=== PATIENT | female | born 1960 | race African-American/Black ===

== ENCOUNTER 2020-07-13 16:33 | Emergency (ER) | payer SELFPAY ==
[2020-07-13 17:22] LABS: Absolute Lymphocytes (CBC) 3.9 K/uL (0.7-4.9); Basophils % 0.8 % (0-1.3); Hematocrit 38.7 % (36.0-45.0); Lymphocytes % 31.3 % (15.3-44.8); MPV 8.6 fL (7.6-11.3); RBC Red Blood Cell Count 4.11 M/uL (3.86-4.86)
[2020-07-13 17:23] LABS: Urine Bacteria 20-50 /HPF (<20); Urine Culture Reflex Order REFLEXED; Urine Mucus 2+ /HPF (NONE SEEN)
[2020-07-13 17:24] LABS: Urine Blood 2+ (NEG); Urine Glucose NEGATIVE (NEG); Urine Protein 2+ (NEG); Urine pH 8.5 (5.0-7.0)
--- NOTE | 2020-07-13 17:34 | RAD REPORT ---
EXAM DESCRIPTION: CT - Abdomen Pelvis Wo Contrast - 07/13/2020 5:26 pm CLINICAL HISTORY: Abdominal pain. feeding tube problem, seems clogged;Abd pain COMPARISON: No comparisons TECHNIQUE: CT imaging of the abdomen and pelvis was performed without contrast. Solid organ, bowel a nd vascular assessment is limited due to lack of IV and oral contrast. All CT scans are performed using dose optimization technique as appropriate and may include automated exposure control or mA/KV adjustment according to patient size. FINDINGS: Mild linear atelectasis is present in both lung bases. The liver, spleen, pancreas, adrenal glands and kidneys are within normal limits for a limited non-co ntrast examination. Gastrostomy tube does not appear to be within the stomach. Gastrostomy tube bulb appears to lie along the left rectus abdominus muscle fascia anteriorly. No bowel obstruction, free air, free fluid or abscess. Sigmoid diverticulosis coli without diverticul itis. The appendix is normal. Degenerative changes are present throughout the lumbar spine. IMPRESSION: Gastrostomy tube is malpositioned and does not appear positioned within the stomach as d etailed above. A limited non-contrast examination was performed as detailed.
[2020-07-13] MEDS ORDERED: NA CHLORIDE 0.9% 500 ML ONE (17:52)
[2020-07-13 17:54] LABS: ALT/SGPT 27 U/L (12-78); AST/SGOT 47 U/L (15-37); Albumin 2.1 g/dL (3.4-5.0); Alkaline Phosphatase 133 U/L (45-117); BUN Blood Urea Nitrogen 12 mg/dL (7-18); Bicarbonate 27 mmol/L (21-32); Bilirubin Direct < 0.1 mg/dL (0-0.2); Bilirubin Total 0.4 mg/dL (0.2-1.0); Glucose Level 119 mg/dL (74-106); Lipase 52 U/L (73-393); Potassium 4.9 mmol/L (3.5-5.1); Protein, Total 8.6 g/dL (6.4-8.2); Sodium Level 137 mmol/L (136-145)
--- NOTE | 2020-07-13 18:40 | RAD REPORT ---
EXAM DESCRIPTION: RAD - ENTEROSTOMY TUBE CHECK W/CONTR - 07/13/2020 6:25 pm CLINICAL HISTORY: confirm feeding tube placement, with contrast, s/p replacem Feeding tube placement assessment COMPARISON: Abdomen Pelvis Wo Contrast dated 07/13/2020 FINDINGS: Two plain radiographs of the abdomen are submitted. No fluoroscopy performed. Contrast inj ection through the G-tube demonstrates collection of contrast in the stomach, confirming appropriate placement.
[2020-07-13] MEDS ORDERED: CEFTRIAXONE/SWI 1gm 1 GM/10 ML SYR ONE (18:48)
--- NOTE | 2020-07-13 18:53 | ER ---
Nurse's Notes [facility] Name: Marah Patterson Age: 59 yrs Sex: Female : 1960 Arrival Date: 07/13/2020 Time: 16:34 Bed 23 Private MD: Diagnosis: Encounter for feeding tube replacement;Urinary tract infection, site not specified Presentation: 07/13 16:35 Chief complaint: EMS states: PT SENT BECAUSE HER G TUBE IS CLOGGED. PT ALSO COMPLAINS ls4 OF PAIN IN RIGHT UPPER LEG AND HIP. Coronavirus screen: Client denies travel out of the [place] in the last 14 days. At this time, the client does not indicate any symptoms associated with coronavirus-19. Ebola Screen: No symptoms or risks identified at this time. Initial Sepsis Screen: Does the patient meet any 2 criteria? HR > 90 bpm. Does the patient have a suspected source of infection? No. Patient's initial sepsis screen is negative. Risk Assessment: Do you want to hurt yourself or someone else? Patient reports no desire to harm self or others. Onset of symptoms was July 13, 2020 at 14:00. Care prior to arrival: None. Activity prior to arrival: None. 16:35 Method Of Arrival: EMS: [facility] ls4 16:35 Acuity: CHARLES 3 ls4 Triage Assessment: 16:34 General: Appears in no apparent distress. uncomfortable, obese, Behavior is ls4 cooperative. Pain: Complains of pain in right gluteus naif, right gluteal fold and abdomen. 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 - Social history:: Smoking status: unknown. - Unable to obtain history due to: aphasic. Screenin:48 Abuse screen: Denies threats or abuse. Denies injuries from another. Nutritional ls4 screening: No deficits noted. Tuberculosis screening: No symptoms or risk factors identified. Fall Risk None identified. Assessment: 16:34 General: Appears uncomfortable, obese, unkempt, Behavior is flat. ls4 16:34 Neuro: Level of Consciousness is awake, alert, obeys commands, Oriented to aphasia. ls4 Respiratory: Airway via trache Respiratory effort is even, unlabored, shallow, Respiratory pattern is regular. 17:35 Reassessment: No changes from previously documented assessment. Patient and/or family ls4 updated on plan of care and expected duration. Pain level reassessed. Patient is alert, oriented x 3, equal unlabored respirations, skin warm/dry/pink. 17:59 Reassessment: g tube removed and replaced by Dr Umaña. balloon inflated 20 cc. xray ls4 confirmation ordered. Personal care and brief changed and pt repositioned. 19:51 Reassessment: called [facility], Lyla answered phone. ls4 20:01 Reassessment: Report to Sara BANSAL at [facility] (She is employee of the [place] in [facility] that ls4 is here to care for the evacuated patients. transport requested. Vital Signs: 16:35 BP 123 / 65; Pulse 120; Resp 16; Temp 98.5; Pulse Ox 100% ; Weight 136.08 kg; Pain 8/10;ls4 18:02 BP 149 / 89; Pulse 116; Resp 20; Pulse Ox 100% on R/A; ls4 ED Course: 16:34 Patient arrived in ED. ls4 16:34 Arm band placed on. ls4 16:34 Patient has correct armband on for positive identification. Placed in gown. Bed in low ls4 position. Call light in reach. Side rails up X 1. telemetry monitor on. Pulse ox on. NIBP on. 16:34 Verbal reassurance given. ls4 16:34 No provider procedures requiring assistance completed. ls4 16:38 Jose Umaña MD is Attending Physician. rn 16:41 Triage completed. ls4 16:50 Elmira Griggs, RN is Primary Nurse. ls4 17:25 Initial lab(s) drawn, by nd, sent to lab. Urine collected: Stout catheter specimen, ls4 cloudy. Inserted saline lock: 22 gauge in right wrist, using aseptic technique. Blood collected. 17:26 Abdomen In Process Unspecified. EDMS 18:01 ENTEROSTOMY TUBE CHECK W/CONTR Sent. ls4 18:25 ENTEROSTOMY TUBE CHECK W/CONTR In Process Unspecified. EDMS Administered Medications: 17:37 Drug: NS 0.9% 500 ml Route: IV; Rate: bolus; Site: right wrist; ls4 22:42 Follow up: IV Status: Completed infusion; IV Intake: 500ml ls4 18:32 Drug: Rocephin 1 grams Route: IV; Rate: calculated rate; Site: right wrist; ls4 22:42 Follow up: Response: No adverse reaction; IV Status: Completed infusion; IV Intake: [id number] Intake: 22:42 IV: 500ml; Total: 500ml. ls4 22:42 IV: 10ml; Total: 510ml. ls4 Outcome: 18:53 Discharge ordered by rn 21:02 Patient left the ED. ls4 Signatures: Dispatcher [employer] EDMS Jose Umaña MD MD rn Stewart, Lisa, RN RN ls4 Corrections: (The following items were deleted from the chart) 22:42 18:30 IV Status: Completed infusion ls4 ls4 22:43 18:42 IV Status: Completed infusion ls4 ls4
--- NOTE | 2020-07-13 18:53 | EDPHYS ---
Physician Documentation [facility] Name: Marah Patterson Age: 59 yrs Sex: Female : 1960 Arrival Date: 07/13/2020 Time: 16:34 Bed 23 Private MD: ED Physician Jose Umaña HPI: 07/13 17:22 This 59 yrs old Black Female presents to ER via EMS with complaints of Problem With rn Feeding Tube. 17:22 Sent for evaluation of clogged feeding tube. No fever per report. Pt aphasic from rn previous CVA, but points to right hip when asked about pain, locates pain at site of pressure ulcer. . 17:23 Onset: The symptoms/episode began/occurred at an unknown time. Severity of symptoms: At rn their worst the symptoms were. It is unknown whether or not the patient has had similar symptoms in the past. 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 - Social history:: Smoking status: unknown. - Unable to obtain history due to: aphasic. ROS: 17:23 Unable to obtain ROS due to aphasic. rn Exam: 17:23 Constitutional: This is a well developed, well nourished patient who is awake, alert, rn and in no acute distress. Head/Face: Normocephalic, atraumatic. ENT: dry MM Cardiovascular: tachycardic, regular Respiratory: No increased work of breathing, no retractions or nasal flaring. Abdomen/GI: soft, + PEG tube in place, no focal tenderness but patient grimaces with palpation. Skin: Warm, dry, shallow pressure ulcer right lateral/posterior hip, no sign of infection. MS/ Extremity: Pulses equal, no cyanosis. Neuro: Awake, aphasic, shakes head yes and no to questions. Vital Signs: 16:35 BP 123 / 65; Pulse 120; Resp 16; Temp 98.5; Pulse Ox 100% ; Weight 136.08 kg; Pain 8/10;ls4 18:02 BP 149 / 89; Pulse 116; Resp 20; Pulse Ox 100% on R/A; ls4 Procedures: 17:54 G-tube placement: a 16 Uzbek catheter was placed, by the ED physician, Jose Umaña MD. rn MDM: 16:38 Patient medically screened. rn 17:55 ED course: Existing feeding tube was not in stomach, inflated in abdominal wall/rectus. rn New one replaced with gastric contents confirmed, tolerated well, same size, inflated with 20cc and good slack. Ordered kub for placement. . 18:17 Differential Diagnosis feeding tube malpositioned, UTI, chronic pain, pressure ulcer. rn Data reviewed: vital signs, nurses notes, lab test result(s), radiologic studies, CT scan, plain films, and as a result, I will discharge patient. Counseling: I had a detailed discussion with the patient and/or guardian regarding: the historical points, exam findings, and any diagnostic results supporting the discharge/admit diagnosis, lab results, radiology results, the need for outpatient follow up, to return to the emergency department if symptoms worsen or persist or if there are any questions or concerns that arise at home. 18:50 ED course: KUB showed appropriate placement of new G tube.. rn 07/13 16:43 Order name: Basic Metabolic Panel; Complete Time: 17:56 rn 07/13 16:43 Order name: CBC with Diff; Complete Time: 17:39 rn 07/13 16:43 Order name: Hepatic Function; Complete Time: 17:56 rn 07/13 16:43 Order name: Lipase; Complete Time: 17:56 rn 07/13 16:43 Order name: Urine Microscopic Only; Complete Time: 17:39 rn 07/13 17:05 Order name: Urine Dipstick--Ancillary (enter results); Complete Time: 17:39 em1 07/13 16:43 Order name: IV Saline Lock; Complete Time: 17:28 rn 07/13 17:25 Order name: Urine Culture [facility] 07/13 17:25 Order name: Abdomen ; Complete Time: 17:39 [facility] 07/13 17:57 Order name: ENTEROSTOMY TUBE CHECK W/CONTR; Complete Time: 18:49 [facility] 07/13 16:43 Order name: Labs collected and sent; Complete Time: 17:28 rn 07/13 16:43 Order name: Urine Dipstick-Ancillary (obtain specimen); Complete Time: 17:03 rn Administered Medications: 17:37 Drug: NS 0.9% 500 ml Route: IV; Rate: bolus; Site: right wrist; ls4 22:42 Follow up: IV Status: Completed infusion; IV Intake: 500ml ls4 18:32 Drug: Rocephin 1 grams Route: IV; Rate: calculated rate; Site: right wrist; ls4 22:42 Follow up: Response: No adverse reaction; IV Status: Completed infusion; IV Intake: [id number] Disposition: 07/13/20 18:53 Discharged to Home. Impression: Encounter for feeding tube replacement, Urinary tract infection, site not specified. - Condition is Stable. - Discharge Instructions: Urinary Tract Infection, Adult, PEG Tube Home Guide. - Prescriptions for cefpodoxime 50 mg/5 mL Oral Suspension for Reconstitution - take 20 milliliters by G-TUBE route every 12 hours for 10 days; 400 milliliter. - Medication Reconciliation Form, Thank You Letter, Antibiotic Education, Prescription Opioid Use form. - Follow up: Private Physician; When: As needed; Reason: Recheck today's complaints, Re-evaluation by your physician. - Problem is new. - Symptoms have improved. Signatures: Dispatcher [employer] [facility] Jose Umaña MD MD rn Stewart, Lisa, RN RN ls4 Corrections: (The following items were deleted from the chart) 17:25 16:44 Abdomen Pelvis W Con+CT.RAD.BRZ ordered. [facility] ED[facility] 17:57 17:55 Abdomen 1 View (KUB)+RAD.RAD.BRZ ordered. [facility] ED[facility] 21:02 18:53 07/13/2020 18:53 Discharged to Home. Impression: Encounter for feeding tube ls4 replacement; Urinary tract infection, site not specified. Condition is Stable. Discharge Instructions: Urinary Tract Infection, Adult, PEG Tube Home Guide. Prescriptions for cefpodoxime 50 mg/5 mL Oral Suspension for Reconstitution - take 20 milliliters by G-TUBE route every 12 hours for 10 days; 400 milliliter. and Forms are Medication Reconciliation Form, Thank You Letter, Antibiotic Education, Prescription Opioid Use. Follow up: Private Physician; When: As needed; Reason: Recheck today's complaints, Re-evaluation by your physician. Problem is new. Symptoms have improved. rn
== END 2020-07-13 21:02 | disposition home or self-care (01) ==
LOC: ER 16:33
DX: Z43.1 Encounter for attention to gastrostomy (principal); N39.0 Urinary tract infection, site not specified; Z88.1 Allergy status to other antibiotic agents; Z88.8 Allergy status to other drugs, medicaments and biological substances
CPT/HCPCS: 36415; 49465; 74176; 80048; 80076; 81003; 81015; 82565; 83690; 85025; 87077; 87086; 87088; 87186; 96361; 96365; 96366; 99284; J0696; J7040

== ENCOUNTER 2020-08-03 19:04 | Emergency (ER) | payer SELFPAY ==
--- OUTSIDE RECORDS SUMMARY | 2020-08-03 19:12 | XMS REPORT | Continuity of Care Document ---
:1960 Author Organization [facility] t Address [address] [place] [address] Care Team Providers Name Role Phone DAILY GARCIA Primary Care Physician Unavailable America Smith Attending Clinician PHU BARRERA ED Attending Clinician Unavailable HOLLY, DEBBY Admitting Clinician Unavailable Payers Payer Name Policy Type Policy Number Effective Date Expiration Date S ource Problems This patient has no known problems. Allergies, Adverse Reactions, Alerts Allergy Allergy Status Severity Reaction(s) Onset Inactive Treating Comm ents Source Name Type Date Date Clinician iodine DA Active [place] 2020-0 [facility] 8-17 [place] 00:[facility] [place] levoflox DA Active [place] 2019-0 [facility] 8-17 [place] [facility] [place] No Known DA Active U 0 [facility] Allergie 7-19 [place] [facility] 00:00: [facility] 00 [facility] [place] Medications This patient has no known medications. Procedures This patient has no known procedures. Encounters Start End Encounter Admission Attending Care Care Encounter Source Date/Time Date/Time Type Type Clinicians Facility Department ID 2020-04-13 2020-04-13 Case America Berrios [facility] [id number] 00:00:00 00:00:00 Management [facility] [id number] CLINICS [id number] 2017-09-10 2017-09-10 Outpatient 3 ELYSIA BARRERA [id number] [facility] 10:49:00 10:49:00 PHU Grahammo nt) 2017-05-28 2017-05-28 Emergency [facility] [id number] Medical 04:36:00 04:36:00 [facility] 2017-05-21 2017-05-21 Inpatient E [facility] [id number] Medical 02:34:00 02:34:00 [facility] Results Test Description Test Time Test Comments Results Result Comments Source GLUBED 2020-07-10 11:55:00 Test Item Value Reference Range Interpretation Comme nts GLUBED (test code = GLUBED) 126 mg/dL 65-99 H BASIC METABOLIC [id number] 10:08:00 Test Item Value Reference Range Interpretation Comments SODIUM (test code 140 mmol/L 135-145 N = NA) POTASSIUM (test 4.5 mmol/L 3.5-5.1 N code = K) CHLORIDE (test 104 mmol/L 98-107 N code = CL) CARBON DIOXIDE 30 mmol/L 21-32 N (test code = CO2) ANION GAP (test 10.5 2.0-16.0 N code = GAP) GLUCOSE (test code 128 mg/dL 65-99 H = GLU) BLOOD UREA 6 mg/dL 4-23 N NITROGEN (test code = BUN) GLOMERULAR >=60 max >60 The estimated FILTRATION RATE estimate ml/min glomerula r (test code = GFR) filtration rate is computed usingpatient ra ce, age (>18), sex, and serum creatinin e. If anyof the neede d data elements a re missing the Laboratory [place] ot compute an estimation of t he glomerular filtration rate . CREATININE (test 0.5 mg/dL 0.6-1.5 L code = CREAT) BUN/CREATININE 12.0 12.0-20.0 N RATIO (test code = BUN/CREA) CALCIUM (test code 9.4 mg/dL 8.5-10.1 N = CA) [id number] 10:08:00 Test Item Value Reference Range Interpretation Comments MAGNESIUM (test code = MAG) 1.8 mg/dL 1.8-2.4 N CBC W/AUTO [id number] 09:46:00 Test Item Value Reference Range Interpretation Comments WHITE BLOOD CELL (test code = 10.6 10 3/uL 4.5-11.0 N WBC) RED BLOOD CELL (test code = 3.71 10 6/uL 3.50-5.50 N RBC) HEMOGLOBIN (test code = HGB) 11.3 g/dL 12.0-16.0 L HEMATOCRIT (test code = HCT) 36.4 % 37.0-55.0 L MEAN CELL VOLUME (test code = 98 fL 81-102 N MCV) MEAN CELL HGB (test code = 30.5 pg 26.0-34.0 N MCH) MEAN CELL HGB CONCENTRATION 31.0 g/dL 31.0-37.0 N (test code = MCHC) RED CELL DISTRIBUTION WIDTH 13.6 % 11.5-14.5 N (test code = RDW) PLATELET COUNT (test code = 620 10 3/uL 150-400 H PLT) MEAN PLATELET VOLUME (test 10.3 fL 9.0-12.6 N code = MPV) NEUTROPHIL % (test code = NT%) 39.5 % 33.0-76.0 N IMMATURE GRANULOCYTE % (test 0.7 % 0.0-1.0 N code = IG%) LYMPHOCYTE % (test code = LY%) 42.9 % 14.0-56.4 N MONOCYTE % (test code = MO%) 7.3 % 0.0-12.9 N EOSINOPHIL % (test code = EO%) 8.8 % 0.0-7.0 H BASOPHIL % (test code = BA%) 0.8 % 0-2.0 N NUCLEATED RBC % (test code = 0.0 % 0-0.2 N NRBC%) NEUTROPHIL # (test code = NT#) 4.19 10 3/uL 1.5-7.0 N IMMATURE GRANULOCYTE # (test 0.070 x10 3/uL 0.000-0.100 N code = IG#) LYMPHOCYTE # (test code = LY#) 4.54 10 3/uL 1.50-4.00 H MONOCYTE # (test code = MO#) 0.77 10 3/uL 0.20-0.80 N EOSINOPHIL # (test code = EO#) 0.93 10 3/uL 0.0-0.5 H BASOPHIL # (test code = BA#) 0.09 10 3/uL 0.0-0.1 N [id number] 06:11:00 Test Item Value Reference Range Interpretation Comments GLUBED (test code = GLUBED) 127 mg/dL 65-99 H [id number] 01:06:00 Test Item Value Reference Range Interpretation Comments GLUBED (test code = GLUBED) 131 mg/dL 65-99 H [id number] 16:55:00 Test Item Value Reference Range Interpretation Comments GLUBED (test code = GLUBED) 118 mg/dL 65-99 H [id number] 11:34:00 Test Item Value Reference Range Interpretation Comments GLUBED (test code = GLUBED) 123 mg/dL 65-99 H [id number] 06:21:00 Test Item Value Reference Range Interpretation Comments GLUBED (test code = GLUBED) 115 mg/dL 65-99 H BASIC METABOLIC [id number] 04:53:00 Test Item Value Reference Range Interpretation Comments SODIUM (test code 139 mmol/L 135-145 N = NA) POTASSIUM (test 4.4 mmol/L 3.5-5.1 N code = K) CHLORIDE (test 105 mmol/L 98-107 N code = CL) CARBON DIOXIDE 28 mmol/L 21-32 N (test code = CO2) ANION GAP (test 10.4 2.0-16.0 N code = GAP) GLUCOSE (test code 121 mg/dL 65-99 H = GLU) BLOOD UREA 7 mg/dL 4-23 N NITROGEN (test code = BUN) GLOMERULAR >=60 max >60 The estimated FILTRATION RATE estimate ml/min glomerula r (test code = GFR) filtration rate is computed usingpatient ra ce, age (>18), sex, and serum creatinin e. If anyof the neede d data elements a re missing the Laboratory [place] ot compute an estimation of t he glomerular filtration rate . CREATININE (test 0.5 mg/dL 0.6-1.5 L code = CREAT) BUN/CREATININE 14.0 12.0-20.0 N RATIO (test code = BUN/CREA) CALCIUM (test code 9.5 mg/dL 8.5-10.1 N = CA) [id number] 04:53:00 Test Item Value Reference Range Interpretation Comments MAGNESIUM (test code = MAG) 1.7 mg/dL 1.8-2.4 L [id number] 04:53:00 Test Item Value Reference Range Interpretation Comments TROPONIN-I (test code = TROPI) < 0.02 ng/mL 0.00-0.07 N [id number] 23:24:00 Test Item Value Reference Range Interpretation Comments GLUBED (test code = GLUBED) 105 mg/dL 65-99 H THYROID STIMULATING [id number] 20:50:00 Test Item Value Reference Range Interpretation Comments THYROID STIMULATING HORMONE (test 0.66 mIU/mL 0.36-3.74 N code = TSH) Spec Comments: add to blood drawnHARDSTICK MISSED [id number] 20:50:00 Test Item Value Reference Range Interpretation Comments TROPONIN-I (test code = TROPI) < 0.02 ng/mL 0.00-0.07 N Spec Comments: add to blood drawnHARDSTICK MISSED [id number] 20:34:00 Test Item Value Reference Range Interpretation Comments D-DIMER (test 616 ng/mLFEU 0-500 H Note: New Ref erence code = DDIMER) RangeD-Dimer results are reported in ng/ mL. These unitscorrespond to ng/mL Fibrinogen Equi valent Units (FEU). TheD-dim er cut-off value is the sa me as the normal referenc erange.A negative D-dime r result when combined w ith a clinicalassessm ent of low pretest probabi lity has been shown to h avea high negative predic tive value for deep vein thrombosis(DVT) and pulmonary embol ism (PE). Elevated levels ofD-Dimer are found in cl inical conditions such as DVT, PE,and dissemin ated intravascular c oagulation (DIC). Spec Comments: add to blood drawnHARDSTICK MISSED [id number] 17:24:00 Test Item Value Reference Range Interpretation Comments GLUBED (test code = GLUBED) 105 mg/dL 65-99 H [id number] 12:01:00 Test Item Value Reference Range Interpretation Comments GLUBED (test code = GLUBED) 109 mg/dL 65-99 H [id number] 06:09:00 Test Item Value Reference Range Interpretation Comments GLUBED (test code = GLUBED) 100 mg/dL 65-99 H [id number] 02:04:00 Test Item Value Reference Range Interpretation Comments GLUBED (test code = GLUBED) 100 mg/dL 65-99 H [id number] 21:52:00 Test Item Value Reference Range Interpretation Comments GLUBED (test code = GLUBED) 98 mg/dL 65-99 N [id number] 16:16:00 Test Item Value Reference Range Interpretation Comments GLUBED (test code = GLUBED) 88 mg/dL 65-99 N [id number] 11:33:00 Test Item Value Reference Range Interpretation Comments GLUBED (test code = GLUBED) 109 mg/dL 65-99 H [id number] 07:15:00 Test Item Value Reference Range Interpretation Comments GLUBED (test code = GLUBED) 72 mg/dL 65-99 N [id number] 06:09:00 Test Item Value Reference Range Interpretation Comments GLUBED (test code = GLUBED) 54 mg/dL 65-99 L [id number] 03:15:00 Test Item Value Reference Range Interpretation Comments GLUBED (test code = GLUBED) 94 mg/dL 65-99 N [id number] 02:50:00 Test Item Value Reference Range Interpretation Comments GLUBED (test code = 46 mg/dL 65-99 LL CRITICAL RESULT - GLUBED) TESTING PERFORM ED BY PRIMARY CAREGIV ER [id number] 00:44:00 Test Item Value Reference Range Interpretation Comments GLUBED (test code = GLUBED) 75 mg/dL 65-99 N [id number] 00:04:00 Test Item Value Reference Range Interpretation Comments GLUBED (test code = GLUBED) 63 mg/dL 65-99 L [id number] 17:39:00 Test Item Value Reference Range Interpretation Comments GLUBED (test code = GLUBED) 99 mg/dL 65-99 N [id number] 12:11:00 Test Item Value Reference Range Interpretation Comments GLUBED (test code = GLUBED) 112 mg/dL 65-99 H [id number] 06:10:00 Test Item Value Reference Range Interpretation Comments GLUBED (test code = GLUBED) 99 mg/dL 65-99 N [id number] 06:01:00 Test Item Value Reference Range Interpretation Comments GLUBED (test code = GLUBED) 109 mg/dL 65-99 H [id number] 23:55:00 Test Item Value Reference Range Interpretation Comments GLUBED (test code = GLUBED) 89 mg/dL 65-99 N [id number] 16:54:00 Test Item Value Reference Range Interpretation Comments GLUBED (test code = GLUBED) 114 mg/dL 65-99 H [id number] 12:41:00 Test Item Value Reference Range Interpretation Comments GLUBED (test code = GLUBED) 114 mg/dL 65-99 H [id number] 12:14:00 Test Item Value Reference Range Interpretation Comments MAGNESIUM (test code = MAG) 1.5 mg/dL 1.8-2.4 L CBC W/MANUAL [id number] 06:25:00 Test Item Value Reference Range Interpretation Comments WHITE BLOOD CELL (test code 8.7 10 3/uL 4.5-11.0 N = WBC) RED BLOOD CELL (test code = 3.33 10 6/uL 3.50-5.50 L RBC) HEMOGLOBIN (test code = HGB) 10.1 g/dL 12.0-16.0 L HEMATOCRIT (test code = HCT) 33.4 % 37.0-55.0 L MEAN CELL VOLUME (test code 100 fL 81-102 N = MCV) MEAN CELL HGB (test code = 30.3 pg 26.0-34.0 N MCH) MEAN CELL HGB CONCENTRATION 30.2 g/dL 31.0-37.0 L (test code = MCHC) RED CELL DISTRIBUTION WIDTH 13.8 % 11.5-14.5 N (test code = RDW) PLATELET COUNT (test code = 481 10 3/uL 150-400 H PLT) MEAN PLATELET VOLUME (test 10.1 fL 9.0-12.6 N code = MPV) NEUTROPHIL % (test code = 36.3 % 33.0-76.0 N NT%) IMMATURE GRANULOCYTE % (test 0.2 % 0.0-1.0 N code = IG%) LYMPHOCYTE % (test code = 40.3 % 14.0-56.4 N LY%) MONOCYTE % (test code = MO%) 4.9 % 0.0-12.9 N EOSINOPHIL % (test code = 17.8 % 0.0-7.0 H EO%) BASOPHIL % (test code = BA%) 0.5 % 0-2.0 N NUCLEATED RBC % (test code = 0.0 % 0-0.2 N NRBC%) NEUTROPHIL # (test code = 3.15 10 3/uL 1.5-7.0 N NT#) IMMATURE GRANULOCYTE # (test 0.020 x10 3/uL 0.000-0.100 N code = IG#) LYMPHOCYTE # (test code = 3.51 10 3/uL 1.50-4.00 N LY#) MONOCYTE # (test code = MO#) 0.43 10 3/uL 0.20-0.80 N EOSINOPHIL # (test code = 1.55 10 3/uL 0.0-0.5 H EO#) BASOPHIL # (test code = BA#) 0.04 10 3/uL 0.0-0.1 N TOTAL CELLS COUNTED (test 100 #CELLS code = TCC) SEGMENTED NEUTROPHILS (test 38 % 33-76 N code = SEG) BAND NEUTROPHIL (test code = 3 % 0-1 H BAND) LYMPHOCYTE (test code = 29 % 14-54 N LYMPH) MONOCYTE (test code = MON) 8 % 0-12 N EOSINOPHIL (test code = EOS) 20 % 0-7 H BASOPHIL (test code = BASO) 2 % 0.0-2.0 N HYPOCHROMIA (test code = 1+ NONE SEEN A HYPO) SMUDGE CELLS (test code = OCCASIONAL NONE SEEN SMUDG) RBC MORPHOLOGY COMMENT (test Abnormal NORMAL code = MOC) PLATELET ESTIMATE (test code ADEQUATE ADEQUATE = PLTEST) PLATELET MORPHOLOGY (test NORMAL PLT MORPH NORMAL code = PLTMORPH) [id number] 06:20:00 Test Item Value Reference Range Interpretation Comments GLUBED (test code = GLUBED) 103 mg/dL 65-99 H COMPREHENSIVE METABOLIC [id number] 04:57:00 Test Item Value Reference Range Interpretation Comments SODIUM (test code 141 mmol/L 135-145 N = NA) POTASSIUM (test 3.6 mmol/L 3.5-5.1 N code = K) CHLORIDE (test 108 mmol/L 98-107 H code = CL) CARBON DIOXIDE 30 mmol/L 21-32 N (test code = CO2) ANION GAP (test 6.6 2.0-16.0 N code = GAP) GLUCOSE (test 107 mg/dL 65-99 H code = GLU) BLOOD UREA 20 mg/dL 4-23 N NITROGEN (test code = BUN) GLOMERULAR >=60 max >60 The estimated g lomerular FILTRATION RATE estimate filtration r ate is (test code = GFR) ml/min computed u singpatient race, age (>18) , sex, and serum creat inine. If anyof the neede d data elements are mi ssing the Laboratory [place] ot compute an arslan mation of the glomerular filtration rate . CREATININE (test 0.6 mg/dL 0.6-1.5 N code = CREAT) BUN/CREATININE 33.3 12.0-20.0 H RATIO (test code = BUN/CREA) TOTAL PROTEIN 5.9 g/dL 6.4-8.2 L (test code = PROT) ALBUMIN (test 1.8 g/dL 3.4-5.0 L code = ALB) CALCIUM (test 8.3 mg/dL 8.5-10.1 L code = CA) BILIRUBIN TOTAL 0.3 mg/dL 0.2-1.2 N Use of this assay is not (test code = recommended for patients BILT) undergoingtreat ment with Eltrombopag due to the potential for falselyelevated results. SGOT/AST (test 70 U/L 15-37 H code = AST) SGPT/ALT (test 29 U/L 6-50 N code = ALT) ALKALINE 110 U/L 45-117 N PHOSPHATASE (test code = ALKP) CBC W/MANUAL [id number] 04:44:00 Test Item Value Reference Range Interpretation Comments WHITE BLOOD CELL (test code = 8.7 10 3/uL 4.5-11.0 N WBC) RED BLOOD CELL (test code = 3.33 10 6/uL 3.50-5.50 L RBC) HEMOGLOBIN (test code = HGB) 10.1 g/dL 12.0-16.0 L HEMATOCRIT (test code = HCT) 33.4 % 37.0-55.0 L MEAN CELL VOLUME (test code = 100 fL 81-102 N MCV) MEAN CELL HGB (test code = 30.3 pg 26.0-34.0 N MCH) MEAN CELL HGB CONCENTRATION 30.2 g/dL 31.0-37.0 L (test code = MCHC) RED CELL DISTRIBUTION WIDTH 13.8 % 11.5-14.5 N (test code = RDW) PLATELET COUNT (test code = 481 10 3/uL 150-400 H PLT) MEAN PLATELET VOLUME (test 10.1 fL 9.0-12.6 N code = MPV) NEUTROPHIL % (test code = NT%) 36.3 % 33.0-76.0 N IMMATURE GRANULOCYTE % (test 0.2 % 0.0-1.0 N code = IG%) LYMPHOCYTE % (test code = LY%) 40.3 % 14.0-56.4 N MONOCYTE % (test code = MO%) 4.9 % 0.0-12.9 N EOSINOPHIL % (test code = EO%) 17.8 % 0.0-7.0 H BASOPHIL % (test code = BA%) 0.5 % 0-2.0 N NUCLEATED RBC % (test code = 0.0 % 0-0.2 N NRBC%) NEUTROPHIL # (test code = NT#) 3.15 10 3/uL 1.5-7.0 N IMMATURE GRANULOCYTE # (test 0.020 x10 3/uL 0.000-0.100 N code = IG#) LYMPHOCYTE # (test code = LY#) 3.51 10 3/uL 1.50-4.00 N MONOCYTE # (test code = MO#) 0.43 10 3/uL 0.20-0.80 N EOSINOPHIL # (test code = EO#) 1.55 10 3/uL 0.0-0.5 H BASOPHIL # (test code = BA#) 0.04 10 3/uL 0.0-0.1 N TOTAL CELLS COUNTED (test code #CELLS = TCC) SEGMENTED NEUTROPHILS (test % 33-76 code = SEG) LYMPHOCYTE (test code = LYMPH) % 14-54 PLATELET ESTIMATE (test code = ADEQUATE PLTEST) PLATELET MORPHOLOGY (test code NORMAL = PLTMORPH) [id number] 21:29:00 Test Item Value Reference Range Interpretation Comments GLUBED (test code = GLUBED) 88 mg/dL 65-99 N [id number] 18:37:00 Test Item Value Reference Range Interpretation Comments GLUBED (test code = GLUBED) 98 mg/dL 65-99 N SED [id number] 13:32:00 Test Item Value Reference Range Interpretation Comments SED RATE (test code = SEDW) 61 mm/hr 0-20 H C REACTIVE [id number] 13:29:00 Test Item Value Reference Range Interpretation Comments C REACTIVE PROTEIN (test code = 10.30 mg/dL 0.00-0.33 H CRP) [id number] 12:16:00 Test Item Value Reference Range Interpretation Comments GLUBED (test code = GLUBED) 91 mg/dL 65-99 N [id number] 06:43:00 Test Item Value Reference Range Interpretation Comments GLUBED (test code = GLUBED) 114 mg/dL 65-99 H HGBA1C - GLYCOSYLATED [id number] 05:36:00 Test Item Value Reference Range Interpretation Comments GLYCOSYLATED HEMOGLOBIN (HA1C) (test 5.8 4.5-5.9 N code = GLYHGB) UA RFLX MICR CULT IF [id number] 04:26:00 Test Item Value Reference Range Interpretation Comments UA COLOR (test code = COLU) YELLOW YELLOW UA APPEARANCE (test code = CLEAR CLEAR APPU) UA GLUCOSE DIPSTICK (test code NEGATIVE NEGATIVE = DGLUU) UA BILIRUBIN DIPSTICK (test NEGATIVE NEGATIVE code = BILU) UA KETONE DIPSTICK (test code TRACE NEGATIVE A = KETU) UA SPECIFIC GRAVITY (test code 1.025 1.005-1.025 N = SGU) UA BLOOD DIPSTICK (test code = NEGATIVE NEGATIVE MICHAEL) UA PH DIPSTICK (test code = 7.0 5.0-8.0 RYAN) UA PROTEIN DIPSTICK (test code 1+ NEGATIVE A = PROU) UA UROBILINOGEN DIPSTICK (test NEGATIVE EU/dL 0.1-0.2 code = URO) UA NITRITE DIPSTICK (test code NEGATIVE NEGATIVE = MOHAN) UA LEUKOCYTE ESTERASE DIPSTICK TRACE NEGATIVE A (test code = LEUU) UA MICROSCOPIC NEEDED? (test YES NO A code = UAMICRO) UA WBC (test code = WBCU) 6-10 /hpf 0-3 A UA RBC (test code = RBCU) 11-20 /hpf 0-3 A UA BACTERIA (test code = BACU) RARE /HPF NEGATIVE UA SQUAMOUS CELLS (test code = Moderate /HPF FEW SQU) Indication for culture: Dysuria/[id number] 02:30:00 Test Item Value Reference Range Interpretation Comments GLUBED (test code = GLUBED) 149 mg/dL 65-99 H [id number] 22:19:00 Test Item Value Reference Range Interpretation Comments GLUBED (test code = GLUBED) 165 mg/dL 65-99 H LACTIC [id number] 20:15:00 Test Item Value Reference Range Interpretation Comments LACTIC ACID (test code = LACT) 1.4 mmol/L 0.4-2.0 N LIPID PROFILE (CORONARY RISK)2020-07-03 17:55:00 Test Item Value Reference Range Interpretation Comments TRIGLYCERIDES (test code = TRIG) 82 mg/dL 0-149 N CHOLESTEROL (test code = CHOL) 84 mg/dL 0-200 N CHOLESTEROL/HDL RATIO (test code = 2 1-6 N CHOLHDL) HDL CHOLESTEROL (test code = HDL) 37 mg/dL 40-60 L LIPOPROTEIN LDL (test code = LDLC) 40 mg/dL 0-100 N Coronavirus 2019 nCoV [id number] 17:52:00 Test Item Value Reference Range Interpretation Comments Coronavirus 2019 Negative Negative This test h ad not been nCoV Bedside (test FDA clear ed or approved; code = LLPQJ59HFESA) This te sthas been authorized by F DA under an EUA for use byauthorized la boratories only for the de tection of nucleicacid fro m SARS-CoV-2, not for any other viruses orpathogens; an d this test is only au thorized for the duratio nof the declaration mike t circumstances e xist justifying theauthorizatio n of emergency use o f in-vitro diagnostic test sfor detection and/o r diagnosis of CO VID-19 under Ihnxneq70 4(b)(1) of the Act, 21 U.S .C. 360bbb-3(b)(1), unless theauthorizatio n is terminated or r evoked sooner. Is patient requiring admission or transfer? YIndication for rapid COVID-9 testing: Mod Clinical Suspicion- XR CHEST 1 [id number] 17:48:00Patient Name: JANIS CRAWFORD Unit No: [id number] EXAMS: CPT CODE: [id number] XR CHEST 1 V [id number] EXAM: Chest one view. Location: A1 HISTORY: COUGH, , COMPARISON: None available. FINDINGS: Endotracheal tube isseen below the thoracic inlet. Lung volumes are low. No focal airspace opacities are seen. There are no pleural effusions or pneumothorax. Aorta, pulmonary vasculature mediastinal contours are within normal limits. Cardiac silhouette is moderately enlarged.. Spondylosis is noted throughout the thoracic spine. IMPRESSION: 1. Endotracheal tube is seen below the thoracic inlet..2. Low lung volumes. 3. Cardiomegaly. Electronically Signed by Elie Garibay MD on07/03/2020 at 1748 Reported and signed by: Elie Garibay MD CC:Self Referred; Angelica Acharya NP; Chucky Molina MD Technologist: Malika Montalvo Time: DAP (Gy m2): Air Kerma (mGy): Trscr Dt/Tm: 07/03/2020 (1747) by:[email or web address] Electronic Signature Date/Time: 07/03/2020 (1747)Orig Print D/T: S: 07/03/2020 (175) Name: JANIS CRAWFORD [facility] [place] Phys: Angelica Peña [place] [address] : 1960 Age: 59 Sex: [place] [id number] Loc: [place].ERTE[facility] Exam Date: 07/03/2020 Status: ADM IN PH: FAX: PAGE 1 Signed ReportCBC W/MANUAL [id number] 16:35:00 Test Item Value Reference Range Interpretation Comments WHITE BLOOD CELL (test code 14.3 10 3/uL 4.5-11.0 H = WBC) RED BLOOD CELL (test code = 3.93 10 6/uL 3.50-5.50 N RBC) HEMOGLOBIN (test code = HGB) 12.3 g/dL 12.0-16.0 N HEMATOCRIT (test code = HCT) 39.3 % 37.0-55.0 N MEAN CELL VOLUME (test code 100 fL 81-102 N = MCV) MEAN CELL HGB (test code = 31.3 pg 26.0-34.0 N MCH) MEAN CELL HGB CONCENTRATION 31.3 g/dL 31.0-37.0 N (test code = MCHC) RED CELL DISTRIBUTION WIDTH 14.1 % 11.5-14.5 N (test code = RDW) PLATELET COUNT (test code = 513 10 3/uL 150-400 H PLT) MEAN PLATELET VOLUME (test 10.5 fL 9.0-12.6 N code = MPV) NEUTROPHIL # (test code = 8.05 10 3/uL 1.5-7.0 H NT#) IMMATURE GRANULOCYTE # (test 0.030 x10 3/uL 0.000-0.100 N code = IG#) LYMPHOCYTE # (test code = 3.22 10 3/uL 1.50-4.00 N LY#) MONOCYTE # (test code = MO#) 0.66 10 3/uL 0.20-0.80 N EOSINOPHIL # (test code = 2.33 10 3/uL 0.0-0.5 H EO#) BASOPHIL # (test code = BA#) 0.03 10 3/uL 0.0-0.1 N TOTAL CELLS COUNTED (test 100 #CELLS code = TCC) SEGMENTED NEUTROPHILS (test 53 % 33-76 N code = SEG) LYMPHOCYTE (test code = 23 % 14-54 N LYMPH) MONOCYTE (test code = MON) 4 % 0-12 N EOSINOPHIL (test code = EOS) 20 % 0-7 H HYPOCHROMIA (test code = 1+ NONE SEEN A HYPO) RBC MORPHOLOGY COMMENT (test Abnormal NORMAL code = MOC) PLATELET ESTIMATE (test code INCREASED ADEQUATE = PLTEST) PLATELET MORPHOLOGY (test NORMAL PLT MORPH NORMAL code = PLTMORPH) CBC W/MANUAL [id number] 16:34:00 Test Item Value Reference Range Interpretation Comments WHITE BLOOD CELL (test code = 14.3 10 3/uL 4.5-11.0 H WBC) RED BLOOD CELL (test code = 3.93 10 6/uL 3.50-5.50 N RBC) HEMOGLOBIN (test code = HGB) 12.3 g/dL 12.0-16.0 N HEMATOCRIT (test code = HCT) 39.3 % 37.0-55.0 N MEAN CELL VOLUME (test code = 100 fL 81-102 N MCV) MEAN CELL HGB (test code = 31.3 pg 26.0-34.0 N MCH) MEAN CELL HGB CONCENTRATION 31.3 g/dL 31.0-37.0 N (test code = MCHC) RED CELL DISTRIBUTION WIDTH 14.1 % 11.5-14.5 N (test code = RDW) PLATELET COUNT (test code = 513 10 3/uL 150-400 H PLT) MEAN PLATELET VOLUME (test 10.5 fL 9.0-12.6 N code = MPV) NEUTROPHIL # (test code = NT#) 8.05 10 3/uL 1.5-7.0 H IMMATURE GRANULOCYTE # (test 0.030 x10 3/uL 0.000-0.100 N code = IG#) LYMPHOCYTE # (test code = LY#) 3.22 10 3/uL 1.50-4.00 N MONOCYTE # (test code = MO#) 0.66 10 3/uL 0.20-0.80 N EOSINOPHIL # (test code = EO#) 2.33 10 3/uL 0.0-0.5 H BASOPHIL # (test code = BA#) 0.03 10 3/uL 0.0-0.1 N TOTAL CELLS COUNTED (test code #CELLS = TCC) SEGMENTED NEUTROPHILS (test % 33-76 code = SEG) LYMPHOCYTE (test code = LYMPH) % 14-54 PLATELET ESTIMATE (test code = ADEQUATE PLTEST) PLATELET MORPHOLOGY (test code NORMAL = PLTMORPH) CBC W/MANUAL [id number] 16:34:00 Test Item Value Reference Range Interpretation Comments WHITE BLOOD CELL (test code = 14.3 10 3/uL 4.5-11.0 H WBC) RED BLOOD CELL (test code = 3.93 10 6/uL 3.50-5.50 N RBC) HEMOGLOBIN (test code = HGB) 12.3 g/dL 12.0-16.0 N HEMATOCRIT (test code = HCT) 39.3 % 37.0-55.0 N MEAN CELL VOLUME (test code = 100 fL 81-102 N MCV) MEAN CELL HGB (test code = 31.3 pg 26.0-34.0 N MCH) MEAN CELL HGB CONCENTRATION 31.3 g/dL 31.0-37.0 N (test code = MCHC) RED CELL DISTRIBUTION WIDTH 14.1 % 11.5-14.5 N (test code = RDW) PLATELET COUNT (test code = 513 10 3/uL 150-400 H PLT) MEAN PLATELET VOLUME (test 10.5 fL 9.0-12.6 N code = MPV) NEUTROPHIL # (test code = NT#) 8.05 10 3/uL 1.5-7.0 H IMMATURE GRANULOCYTE # (test 0.030 x10 3/uL 0.000-0.100 N code = IG#) LYMPHOCYTE # (test code = LY#) 3.22 10 3/uL 1.50-4.00 N MONOCYTE # (test code = MO#) 0.66 10 3/uL 0.20-0.80 N EOSINOPHIL # (test code = EO#) 2.33 10 3/uL 0.0-0.5 H BASOPHIL # (test code = BA#) 0.03 10 3/uL 0.0-0.1 N TOTAL CELLS COUNTED (test code #CELLS = TCC) SEGMENTED NEUTROPHILS (test % 33-76 code = SEG) LYMPHOCYTE (test code = LYMPH) % 14-54 PLATELET ESTIMATE (test code = ADEQUATE PLTEST) PLATELET MORPHOLOGY (test code NORMAL = PLTMORPH) LACTIC [id number] 16:15:00 Test Item Value Reference Range Interpretation Comments LACTIC ACID (test 2.5 mmol/L 0.4-2.0 H Elevated L actate code = LACT) reported to the following Caregiver:Full Name/Title: RELL POSADA/James GALINDO, on 07/03/20, @ 161 5 BASIC METABOLIC [id number] 16:00:00 Test Item Value Reference Range Interpretation Comments SODIUM (test code 139 mmol/L 135-145 N = NA) POTASSIUM (test 4.2 mmol/L 3.5-5.1 N code = K) CHLORIDE (test 102 mmol/L 98-107 N code = CL) CARBON DIOXIDE 32 mmol/L 21-32 N (test code = CO2) ANION GAP (test 9.2 2.0-16.0 N code = GAP) GLUCOSE (test code 115 mg/dL 65-99 H = GLU) BLOOD UREA 32 mg/dL 4-23 H NITROGEN (test code = BUN) GLOMERULAR >=60 max >60 The estimated FILTRATION RATE estimate ml/min glomerula r (test code = GFR) filtration rate is computed usingpatient ra ce, age (>18), sex, and serum creatinin e. If anyof the neede d data elements a re missing the Laboratory davonte ot compute an estimation of t he glomerular filtration rate . CREATININE (test 1.0 mg/dL 0.6-1.5 N code = CREAT) BUN/CREATININE 32.0 12.0-20.0 H RATIO (test code = BUN/CREA) CALCIUM (test code 8.6 mg/dL 8.5-10.1 N = CA) - CT HEAD/BRAIN W/O [id number] 19:08:00Patient Name: JANIS CRAWFORD Unit No: [id number] EXAMS: CPT CODE: [id number] CT HEAD/BRAIN W/O CONT [id number] LOCATION: H43 EXAM: CT HEAD WO CONTRAST HISTORY: Status post fall. TECHNIQUE: Axial imaging the brain from skull base to the vertex without the administration of intravenous contrast. Sagittal and Coronal reconstructions. CT scan performed using appropriate/available dose optimization/reduction techniques. MPO896.7 m Gy*cm COMPARISON: None. FINDINGS: There is no evidence of an acuteintracranial hemorrhage or extra-axial collection. There is no confluent low density to indicate acute territorial infarct. Generalized, age appropriate atrophy is present. Mild periventricular and deep white matter low density is present, nonspecific but most commonly attributed to chronic microvascular ischemic change in a patient of this age. The ventricles are midline in position and normal in size. The basilar cisterns are patent and symmetric. The density of the major dural sinuses is within normal limits. The orbits and their contents are unremarkable. There are postsurgical changes of a prior left frontal craniotomy. There is diffuse opacification of the right mastoid aircells and middle ear cavity. No air-fluid levels. No osseous erosive changes are present. The visualized paranasal sinuses are clear. IMPRESSION: 1. Noevidence of acute intracranial hemorrhage or mass effect. 2. Postsurgical changes of a prior left frontal craniotomy. 3. Opacification of the right mastoid air cells and middle ear cavity. Correlate for symptoms of otomastoiditis. No associated osseous erosive changes. at 1908 Reported and signed by: Celina Harden MD Name: JANIS CRAWFORD [facility] Phys: ROSA - Jaclyn Nelson [id number] Counts include 234 beds at the [facility] : Age: 59 Sex: [place] [address] Loc: [place].ERS Exam Date: 06/04/2020 Status: REG ER PH: FAX: PAGE 1 Signed Report (CONTINUED) Patient Name: JANIS CRAWFORD Unit No: [id number] EXAMS: CPT CODE: [id number] CT HEAD/BRAIN W/O CONT [id number] <Continued> CC: Kayley Belcher DO; Jaclyn Nelson BARN OPERATOR Technologist: Katia Stevens; Dee Henderson CTDI: 49.60 DLP: 938.7 Trscr Dt/Tm: 06/04/2020 (1907) by:[email or web address] Electronic Signature Date/Time: 06/04/2020 (1907)Orig Print D/T: S: 06/04/2020 (1910) Name: JANIS CRAWFORD [facility] [place] Phys: STJOVANYE - Jaclyn Nelson [id number] Counts include 234 beds at the [facility] : 1960 Age: 59 Sex: [place] [address] Loc: NC.ERS Exam Date: 06/04/2020 Status: REG ER PH: FAX: PAGE 2 Signed Report COMPREHENSIVE METABOLIC [id number] 18:53:00 Test Item Value Reference Range Interpretation Comments SODIUM (test code 140 mmol/L 135-145 N = NA) POTASSIUM (test 3.7 mmol/L 3.5-5.1 N code = K) CHLORIDE (test 111 mmol/L 98-107 H code = CL) CARBON DIOXIDE 24 mmol/L 21-32 N (test code = CO2) ANION GAP (test 8.7 2.0-16.0 N code = GAP) GLUCOSE (test 95 mg/dL 65-99 N code = GLU) BLOOD UREA 11 mg/dL 4-23 N NITROGEN (test code = BUN) GLOMERULAR >=60 max >60 The estimated g lomerular FILTRATION RATE estimate filtration r ate is (test code = GFR) ml/min computed u singpatient race, age (>18) , sex, and serum creat inine. If anyof the neede d data elements are mi ssing the Laboratory davonte ot compute an arslan mation of the glomerular filtration rate . CREATININE (test 0.8 mg/dL 0.6-1.5 N code = CREAT) BUN/CREATININE 13.8 12.0-20.0 N RATIO (test code = BUN/CREA) TOTAL PROTEIN 8.8 g/dL 6.4-8.2 H (test code = PROT) ALBUMIN (test 3.3 g/dL 3.4-5.0 L code = ALB) CALCIUM (test 9.3 mg/dL 8.5-10.1 N code = CA) BILIRUBIN TOTAL 0.4 mg/dL 0.2-1.2 N Use of this assay is not (test code = recommended for patients BILT) undergoingtreat ment with Eltrombopag due to the potential for falselyelevated results. SGOT/AST (test 59 U/L 15-37 H code = AST) SGPT/ALT (test 29 U/L 6-50 N code = ALT) ALKALINE 101 U/L 45-117 N PHOSPHATASE (test code = ALKP) COMPREHENSIVE METABOLIC [id number] 18:44:00 Test Item Value Reference Range Interpretation Comments SODIUM (test code = NA) 140 mmol/L 135-145 N POTASSIUM (test code = K) 3.7 mmol/L 3.5-5.1 N CHLORIDE (test code = CL) 111 mmol/L 98-107 H CARBON DIOXIDE (test code = CO2) mmol/L 21-32 ANION GAP (test code = GAP) 2.0-16.0 GLUCOSE (test code = GLU) mg/dL 65-99 BLOOD UREA NITROGEN (test code = mg/dL 4-23 BUN) GLOMERULAR FILTRATION RATE (test ml/min >60 code = GFR) CREATININE (test code = CREAT) mg/dL 0.6-1.5 BUN/CREATININE RATIO (test code = 12.0-20.0 BUN/CREA) TOTAL PROTEIN (test code = PROT) g/dL 6.4-8.2 ALBUMIN (test code = ALB) g/dL 3.4-5.0 CALCIUM (test code = CA) mg/dL 8.5-10.1 BILIRUBIN TOTAL (test code = BILT) mg/dL 0.2-1.2 SGOT/AST (test code = AST) U/L 15-37 SGPT/ALT (test code = ALT) U/L 6-50 ALKALINE PHOSPHATASE (test code = U/L 45-117 ALKP) CBC W/AUTO [id number] 18:33:00 Test Item Value Reference Range Interpretation Comments WHITE BLOOD CELL (test code = 10.3 10 3/uL 4.5-11.0 N WBC) RED BLOOD CELL (test code = 4.41 10 6/uL 3.50-5.50 N RBC) HEMOGLOBIN (test code = HGB) 14.0 g/dL 12.0-16.0 N HEMATOCRIT (test code = HCT) 44.4 % 37.0-55.0 N MEAN CELL VOLUME (test code = 101 fL 81-102 N MCV) MEAN CELL HGB (test code = 31.7 pg 26.0-34.0 N MCH) MEAN CELL HGB CONCENTRATION 31.5 g/dL 31.0-37.0 N (test code = MCHC) RED CELL DISTRIBUTION WIDTH 14.1 % 11.5-14.5 N (test code = RDW) PLATELET COUNT (test code = 216 10 3/uL 150-400 N PLT) MEAN PLATELET VOLUME (test 10.4 fL 9.0-12.6 N code = MPV) NEUTROPHIL % (test code = NT%) 78.2 % 33.0-76.0 H IMMATURE GRANULOCYTE % (test 0.2 % 0.0-1.0 N code = IG%) LYMPHOCYTE % (test code = LY%) 14.5 % 14.0-56.4 N MONOCYTE % (test code = MO%) 5.2 % 0.0-12.9 N EOSINOPHIL % (test code = EO%) 1.5 % 0.0-7.0 N BASOPHIL % (test code = BA%) 0.4 % 0-2.0 N NUCLEATED RBC % (test code = 0.0 % 0-0.2 N NRBC%) NEUTROPHIL # (test code = NT#) 8.06 10 3/uL 1.5-7.0 H IMMATURE GRANULOCYTE # (test 0.020 x10 3/uL 0.000-0.100 N code = IG#) LYMPHOCYTE # (test code = LY#) 1.49 10 3/uL 1.50-4.00 L MONOCYTE # (test code = MO#) 0.54 10 3/uL 0.20-0.80 N EOSINOPHIL # (test code = EO#) 0.15 10 3/uL 0.0-0.5 N BASOPHIL # (test code = BA#) 0.04 10 3/uL 0.0-0.1 N Urine [id number] 08:19:18No growth at 2 days.Blood [id number] 06:01:35 Test Item Value Reference Range Interpretation Comments ORGANISM (test code = Staphylococcus aureus ORGANISM) Ciprofloxacin (test code S = Cipro) Gentamicin (test code = S Gent) Levofloxacin (test code S = Levo) Nitrofurantoin (test S code = Nitro) Trimethoprim/Sulfa (test S code = SXT) Benzylpenicillin (test R code = Carlos Alberto) Clindamycin (test code = S Clinda) Erythromycin (test code S = Eryth) Linezolid (test code = S Linez) Moxifloxacin (test code S = Moxi) Oxacillin (test code = S Ox) Rifampin (test code = S Rif) Tetracycline (test code S = Tetra) Vancomycin (test code = S Vanc) Final Report (test code Many Staphylococcus = Final Report) aureus Results called to and read back by: hamilton steven/rolf 04/04/20 08:34:59 lg POC [id number] 22:18:13 Test Item Value Reference Range Interpretation Comments Glucose POC (test 139 mg/dL 74-106 H POC Glucos e used on code = Glucose POC) critical ly ill patients is considered " off-label use" and has no t been cleared or appr zuly by the FDA. Altern ative testing methods should be considered i f the patient is crit ically ill. POC [id number] 18:21:08 Test Item Value Reference Range Interpretation Comments Glucose POC (test 140 mg/dL 74-106 H POC Glucos e used on code = Glucose POC) critical ly ill patients is considered " off-label use" and has no t been cleared or appr zuly by the FDA. Altern ative testing methods should be considered i f the patient is crit ically ill. POC [id number] 17:08:01 Test Item Value Reference Range Interpretation Comments Glucose POC (test 150 mg/dL 74-106 H POC Glucos e used on code = Glucose POC) critical ly ill patients is considered " off-label use" and has no t been cleared or appr zuly by the FDA. Altern ative testing methods should be considered i f the patient is crit ically ill. Novel Coronavirus SARS-CoV-2, [id number] 17:07:53 Test Item Value Reference Range Interpretation Comments SARS-CoV-2 PCR NEGATIVE Negative CTRB/LITZY JIMMIE RM (test code = IPO/04/02/2020 1 7:07:40 SARS-CoV-2 PCR) CDT/STPositi ve results are indicative of a ctive infection with SARS-CoV-2; clinical correl ation with patient history and other diagnostic info rmation is necessary to de termine patient infecti on status.Negative results do not preclude SA RS-CoV-2 infection and s hould not be used as the nadira e basis for treatment or ot her patient management deci sions. Negative result s must be combined with c linical observations, p atient history, and ep idemiological information.The Xpert Xpress SARS-CoV-2 test is only for use under the ood and Drug Administration s Emergency Use Authorization. POC [id number] 14:12:08 Test Item Value Reference Range Interpretation Comments Glucose POC (test 157 mg/dL 74-106 H POC Glucos e used on code = Glucose POC) critical ly ill patients is considered " off-label use" and has no t been cleared or appr zuly by the FDA. Altern ative testing methods should be considered i f the patient is crit ically ill. POC [id number] 11:30:53 Test Item Value Reference Range Interpretation Comments Glucose POC (test 167 mg/dL 74-106 H POC Glucos e used on code = Glucose POC) critical ly ill patients is considered " off-label use" and has no t been cleared or appr zuly by the FDA. Altern ative testing methods should be considered i f the patient is crit ically ill. POC G3+ [id number] 09:51:24 Test Item Value Reference Range Interpretation Comments pH Art (test code = pH Art) 7.40 pH units 7.35-7.45 pCO2 Art (test code = pCO2 Art) 43.0 mmHg 35.0-45.0 pO2 Art (test code = pO2 Art) 92.0 mmHg 85.0-100.0 O2 Sat Art (test code = O2 Sat 97.0 % 92.0-98.5 Art) HCO3 Art (test code = HCO3 Art) 27.0 mmol/L 22.0-26.0 H FIO2% (test code = FIO2%) 40.0 % N Base Excess Arterial (test code 2 mmol/L -2-2 = Base Excess Arterial) Jose Enrique's Test (test code = Pass Pass Jose Enrique's Test) PEEP/CPAP (test code = 5 cmH20 N PEEP/CPAP) Del Sys (test code = Del Sys) Ventilator N Mode iStat (test code = Mode AC N iStat) Resp Rate (test code = Resp 14 br/min N Rate) Performing Site (test code = R Radial N Performing Site) VT (cc) (test code = VT (cc)) 500.0 N Red Blood Cells [id number] 09:49:37 Test Item Value Reference Range Interpretation Comments # of Units (test code = 1 N # of Units) RBC Trn Reason (test High risk, even if N code = RBC Trn Reason) Hgb > 7 RBC Product Ready (test RBC Ready code = RBC Product Ready) XR Chest 1 View [id number] 09:01:31Patient: JANIS PATTERSON Date/Time04/02/2020 06:40 CDTReason for Exampneumonia;Shortness of breathReportCHEST SINGLE VIEW:COMPARISON: 04/01/2020CLINICAL INFORMATION: Pneumonia, short of breath.Portable semierect chest was submitted. The endotracheal tube tip is 5 cm above the bailey. Cardiomediastinal structures are within normal limits. There is borderline pulmonary vascular congestion. Right lung infiltrates appear unchanged. No pleural fluid is identified. The bony architecture appears intact, where adequately seen.IMPRESSION:1. Right lung infiltrates suggesting pneumonia.2. No changes are appreciated. Final Dictated by: MD Valdez Joseph ADictated DT/TM: 04/02/2020 8:58 amSigned by: MD Valdez Joseph ASigned (Electronic Signature): 04/02/2020 9:01 [id number] 08:55:25 Test Item Value Reference Range Interpretation Comments Previous History (test code Yes Prev History = Previous History) BBID (test code = BBID) [id number] Methodology (test code = Ortho-Vision(OV) Methodology) Anti-A (test code = Anti-A) 4+ Anti-B (test code = Anti-B) 4+ Anti-D (test code = Anti-D) 4+ DCon (test code = DCon) 0 A1 (test code = A1) 0 B cells (test code = B 0 cells) ABORh (test code = ABORh) AB POS 2C [id number] 08:55:25 Test Item Value Reference Range Interpretation Comments Methodology (test code = Ortho-Vision(OV) Methodology) SC1 (test code = SC1) 0 SC2 (test code = SC2) 0 Antibody Screen (2C) (test Negative ABSC code = Antibody Screen (2C)) POC [id number] 08:32:55 Test Item Value Reference Range Interpretation Comments Glucose POC (test 171 mg/dL 74-106 H POC Glucos e used on code = Glucose POC) critical ly ill patients is considered " off-label use" and has no t been cleared or appr zuly by the FDA. Altern ative testing methods should be considered i f the patient is crit ically ill. Respiratory Culture w/ Gram [id number] 08:32:10 Test Item Value Reference Range Interpretation Comments ORGANISM (test code = Staphylococcus aureus ORGANISM) Ciprofloxacin (test code S = Cipro) Gentamicin (test code = S Gent) Levofloxacin (test code S = Levo) Nitrofurantoin (test S code = Nitro) Trimethoprim/Sulfa (test S code = SXT) Benzylpenicillin (test R code = Carlos Alberto) Clindamycin (test code = S Clinda) Erythromycin (test code S = Eryth) Linezolid (test code = S Linez) Moxifloxacin (test code S = Moxi) Oxacillin (test code = S Ox) Rifampin (test code = S Rif) Tetracycline (test code S = Tetra) Vancomycin (test code = S Vanc) Final Report (test code Many Staphylococcus = Final Report) aureus Gram Stain Report (test Many Gram Positive code = Gram Stain Cocci Report) Prothrombin Time and [id number] 08:12:21 Test Item Value Reference Range Interpretation Comments Prothrombin Time (test code = 12.7 seconds 9.2-12.0 H Prothrombin Time) INR (test code = INR) 1.2 ratio 0.9-1.2 [id number] 08:10:04 Test Item Value Reference Range Interpretation Comments RBC Morph (test code = RBC As Indicated Normal A Morph) Anisocyte (test code = 2+ A Anisocyte) Hypochromia (test code = 2+ A Hypochromia) Plt Estimation (test code = Plt Decreased Normal A Estimation) POC [id number] 06:20:00 Test Item Value Reference Range Interpretation Comments Glucose POC (test 181 mg/dL 74-106 H POC Glucos e used on code = Glucose POC) critical ly ill patients is considered " off-label use" and has no t been cleared or appr zuly by the FDA. Altern ative testing methods should be considered i f the patient is crit ically ill. POC [id number] 06:19:59 Test Item Value Reference Range Interpretation Comments Glucose POC (test 184 mg/dL 74-106 H POC Glucos e used on code = Glucose POC) critical ly ill patients is considered " off-label use" and has no t been cleared or appr zuly by the FDA. Altern ative testing methods should be considered i f the patient is crit ically ill. POC [id number] 06:19:59 Test Item Value Reference Range Interpretation Comments Glucose POC (test 178 mg/dL 74-106 H POC Glucos e used on code = Glucose POC) critical ly ill patients is considered " off-label use" and has no t been cleared or appr zuly by the FDA. Altern ative testing methods should be considered i f the patient is crit ically ill. Procalcitonin [id number] 05:00:07 Test Item Value Reference Range Interpretation Comments Procalcitonin Lvl 6.63 ng/mL 0.00-0.50 ROLF ZUNIGA/CVICU (test code = 04/02/2020 05:00 :01 Procalcitonin Lvl) CDT BY BRAYDEN BENAVIDEZ<0.51 ng/ml systemic infection (seps is) is not likely. Lo thad bacterial infec tion is possible.>0. 50 ng/ml and <2.1 ng/ml systemic infect ion (sepsis) is pos sible but other condi tions may elevate PCT .>2.0 ng/ml systemic infection is li jacques, unless other ca uses for PCT elevati on are known.>9.99 ng/ ml important syste consuelo inflammatory re sponse almost exclusiv jono due to severe bacterial sepsi s or septic shock. Comprehensive Metabolic [id number] 04:45:15 Test Item Value Reference Range Interpretation Comments Sodium Level (test code = 142 mmol/L 136-145 Sodium Level) Potassium Level (test code 3.6 mmol/L 3.5-5.1 = Potassium Level) Chloride Level (test code = 106 mmol/L 98-107 Chloride Level) CO2 (test code = CO2) 26 mmol/L 21-32 Anion Gap (test code = 10 mmol/L 7-16 Anion Gap) BUN (test code = BUN) 62 mg/dL 7-18 H Creatinine Level (test code 1.9 mg/dL 0.6-1.0 H = Creatinine Level) Glucose Level (test code = 164 mg/dL 74-106 H Glucose Level) Calcium Level (test code = 8.1 mg/dL 8.5-10.1 L Calcium Level) Alk Phos (test code = Alk 84 IntlUnit/L 50-136 Phos) Bilirubin Total (test code 2.3 mg/dL 0.2-1.0 H = Bilirubin Total) Albumin Level (test code = 2.0 g/dL 3.4-5.0 L Albumin Level) Protein Total (test code = 6.8 g/dL 6.4-8.2 Protein Total) ALT (test code = ALT) 15 IntlUnit/L 12-78 AST (test code = AST) 48 IntlUnit/L 15-37 H eGFR AA (test code = eGFR 33 mL/min/1.73 m2 N AA) Comprehensive Metabolic [id number] 04:45:15 Test Item Value Reference Range Interpretation Comments Sodium Level (test code = 142 mmol/L 136-145 Sodium Level) Potassium Level (test code 3.6 mmol/L 3.5-5.1 = Potassium Level) Chloride Level (test code = 106 mmol/L 98-107 Chloride Level) CO2 (test code = CO2) 26 mmol/L 21-32 Anion Gap (test code = 10 mmol/L 7-16 Anion Gap) BUN (test code = BUN) 62 mg/dL 7-18 H Creatinine Level (test code 1.9 mg/dL 0.6-1.0 H = Creatinine Level) Glucose Level (test code = 164 mg/dL 74-106 H Glucose Level) Calcium Level (test code = 8.1 mg/dL 8.5-10.1 L Calcium Level) Alk Phos (test code = Alk 84 IntlUnit/L 50-136 Phos) Bilirubin Total (test code 2.3 mg/dL 0.2-1.0 H = Bilirubin Total) Albumin Level (test code = 2.0 g/dL 3.4-5.0 L Albumin Level) Protein Total (test code = 6.8 g/dL 6.4-8.2 Protein Total) ALT (test code = ALT) 15 IntlUnit/L 12-78 AST (test code = AST) 48 IntlUnit/L 15-37 H eGFR AA (test code = eGFR 33 mL/min/1.73 m2 N AA) Lipase [id number] 04:45:15 Test Item Value Reference Range Interpretation Comments Lipase Level (test code = 133 IntlUnit/L 73-393 Lipase Level) Magnesium [id number] 04:45:15 Test Item Value Reference Range Interpretation Comments Magnesium Level (test code = 1.8 mg/dL 1.6-2.6 Magnesium Level) Thyroid Stimulating [id number] 04:45:15 Test Item Value Reference Range Interpretation Comments TSH (test code = TSH) 0.514 IntlUnit/mL 0.358-3.740 Pro B Natriuretic [id number] 04:45:15 Test Item Value Reference Range Interpretation Comments NT-proBNP (test 47585 pg/mL 0-125 H < 300 pg/ml - heart code = NT-proBNP) failure un likelyAge less than 50 years, > 450 pg/ml - heart f ailure lilkelyAge 50 - 75 years, > 900 pg /ml - heart failure l ikelyAge greater than 75 years, > 1800 pg/ml - he art failure likely Comprehensive Metabolic [id number] 04:45:15 Test Item Value Reference Range Interpretation Comments Sodium Level (test code = 142 mmol/L 136-145 Sodium Level) Potassium Level (test code 3.6 mmol/L 3.5-5.1 = Potassium Level) Chloride Level (test code = 106 mmol/L 98-107 Chloride Level) CO2 (test code = CO2) 26 mmol/L 21-32 Anion Gap (test code = 10 mmol/L 7-16 Anion Gap) BUN (test code = BUN) 62 mg/dL 7-18 H Creatinine Level (test code 1.9 mg/dL 0.6-1.0 H = Creatinine Level) Glucose Level (test code = 164 mg/dL 74-106 H Glucose Level) Calcium Level (test code = 8.1 mg/dL 8.5-10.1 L Calcium Level) Alk Phos (test code = Alk 84 IntlUnit/L 50-136 Phos) Bilirubin Total (test code 2.3 mg/dL 0.2-1.0 H = Bilirubin Total) Albumin Level (test code = 2.0 g/dL 3.4-5.0 L Albumin Level) Protein Total (test code = 6.8 g/dL 6.4-8.2 Protein Total) ALT (test code = ALT) 15 IntlUnit/L 12-78 AST (test code = AST) 48 IntlUnit/L 15-37 H eGFR AA (test code = eGFR 33 mL/min/1.73 m2 N AA) eGFR Non-AA (test code = 27 mL/min/1.73 m2 N eGFR Non-AA) Partial Thromboplastin [id number] 04:29:37 Test Item Value Reference Range Interpretation Comments Partial Thromboplastin 30.7 seconds 24.0-35.0 APTT Heparin Time (test code = Therapeuti c Range: Partial Thromboplastin 47.9- 80.4 seconds Time) Complete Blood Count with [id number] 04:29:19 Test Item Value Reference Range Interpretation Comments WBC (test code = WBC) 18.9 x10 4.8-10.8 H RBC (test code = RBC) 2.61 x10 4.20-5.50 L Hgb (test code = Hgb) 7.4 g/dL 12.0-16.0 ctrb marilee zuniga 04/02/2020 04: 29:13 CDT/lrj Hct (test code = Hct) 22.1 % 35.0-47.0 ctrb marilee zuniga rn04/02/2020 04: 29:13 CDT/lrj MCV (test code = MCV) 84.7 fL 80.0-95.0 RDW (test code = RDW) 19.3 % 11.5-14.5 H MCHC (test code = 33.7 g/dL 31.0-36.0 MCHC) MCH (test code = MCH) 28.6 pg 26.0-32.0 Platelets (test code = 36 x10 140-440 ctrb no zuniga Platelets) rn04/02/2020 04: 29:13 CDT/lrj MPV (test code = MPV) 9.6 fL 7.5-11.2 Slide Review (test Smear N code = Slide Review) Automated [id number] 04:29:19 Test Item Value Reference Range Interpretation Comments Neutro Auto (test code = Neutro 72.2 % N Auto) Lymph Auto (test code = Lymph Auto) 20.0 % N [place] Auto (test code = [place] Auto) 5.0 % N Eos, Auto (test code = Eos, Auto) 2.4 % N Basophil Auto (test code = Basophil 0.4 % N Auto) Neutro Absolute (test code = Neutro 13.7 x10 2.7-7.3 H Absolute) Lymph Absolute (test code = Lymph 3.8 x10 0.8-3.5 H Absolute) [place] Absolute (test code = [place] 0.9 x10 0.3-0.9 Absolute) Eos Absolute (test code = Eos 0.5 x10 0.0-0.3 H Absolute) Baso Absolute (test code = Baso 0.1 x10 0.0-0.1 Absolute) Ammonia [id number] 04:25:10 Test Item Value Reference Range Interpretation Comments Ammonia Level (test code = Ammonia 44 mmol/L 19-54 Level) POC [id number] 02:23:52 Test Item Value Reference Range Interpretation Comments Glucose POC (test 192 mg/dL 74-106 H POC Glucos e used on code = Glucose POC) critical ly ill patients is considered " off-label use" and has no t been cleared or appr zuly by the FDA. Altern ative testing methods should be considered i f the patient is crit ically ill. POC [id number] 01:09:42 Test Item Value Reference Range Interpretation Comments Glucose POC (test 197 mg/dL 74-106 H POC Glucos e used on code = Glucose POC) critical ly ill patients is considered " off-label use" and has no t been cleared or appr zuly by the FDA. Altern ative testing methods should be considered i f the patient is crit ically ill. POC [id number] 01:09:42 Test Item Value Reference Range Interpretation Comments Glucose POC (test 202 mg/dL 74-106 H POC Glucos e used on code = Glucose POC) critical ly ill patients is considered " off-label use" and has no t been cleared or appr zuly by the FDA. Altern ative testing methods should be considered i f the patient is crit ically ill. POC [id number] 01:09:40 Test Item Value Reference Range Interpretation Comments Glucose POC (test 209 mg/dL 74-106 H POC Glucos e used on code = Glucose POC) critical ly ill patients is considered " off-label use" and has no t been cleared or appr zuly by the FDA. Altern ative testing methods should be considered i f the patient is crit ically ill. POC [id number] 01:09:39 Test Item Value Reference Range Interpretation Comments Glucose POC (test 177 mg/dL 74-106 H POC Glucos e used on code = Glucose POC) critical ly ill patients is considered " off-label use" and has no t been cleared or appr zuly by the FDA. Altern ative testing methods should be considered i f the patient is crit ically ill. POC [id number] 01:09:38 Test Item Value Reference Range Interpretation Comments Glucose POC (test 133 mg/dL 74-106 H POC Glucos e used on code = Glucose POC) critical ly ill patients is considered " off-label use" and has no t been cleared or appr zuly by the FDA. Altern ative testing methods should be considered i f the patient is crit ically ill. POC [id number] 01:09:37 Test Item Value Reference Range Interpretation Comments Glucose POC (test 122 mg/dL 74-106 H POC Glucos e used on code = Glucose POC) critical ly ill patients is considered " off-label use" and has no t been cleared or appr zuly by the FDA. Altern ative testing methods should be considered i f the patient is crit ically ill. POC [id number] 01:09:36 Test Item Value Reference Range Interpretation Comments Glucose POC (test 106 mg/dL 74-106 POC Glucos e used on code = Glucose POC) critical ly ill patients is considered " off-label use" and has no t been cleared or appr zuly by the FDA. Altern ative testing methods should be considered i f the patient is crit ically ill. POC [id number] 18:14:16 Test Item Value Reference Range Interpretation Comments Glucose POC (test 114 mg/dL 74-106 H POC Glucos e used on code = Glucose POC) critical ly ill patients is considered " off-label use" and has no t been cleared or appr zuly by the FDA. Altern ative testing methods should be considered i f the patient is crit ically ill. POC [id number] 16:34:02 Test Item Value Reference Range Interpretation Comments Glucose POC (test 125 mg/dL 74-106 H POC Glucos e used on code = Glucose POC) critical ly ill patients is considered " off-label use" and has no t been cleared or appr zuly by the FDA. Altern ative testing methods should be considered i f the patient is crit ically ill. Basic Metabolic [id number] 15:04:15 Test Item Value Reference Range Interpretation Comments Sodium Level (test code = Sodium 144 mmol/L 136-145 Level) Potassium Level (test code = 3.6 mmol/L 3.5-5.1 Potassium Level) Chloride Level (test code = 107 mmol/L 98-107 Chloride Level) CO2 (test code = CO2) 28 mmol/L 21-32 Anion Gap (test code = Anion Gap) 9 mmol/L 7-16 BUN (test code = BUN) 58 mg/dL 7-18 H Creatinine Level (test code = 2.1 mg/dL 0.6-1.0 H Creatinine Level) Glucose Level (test code = Glucose 144 mg/dL 74-106 H Level) Calcium Level (test code = Calcium 8.0 mg/dL 8.5-10.1 L Level) Basic Metabolic [id number] 15:04:15 Test Item Value Reference Range Interpretation Comments Sodium Level (test code = 144 mmol/L 136-145 Sodium Level) Potassium Level (test code 3.6 mmol/L 3.5-5.1 = Potassium Level) Chloride Level (test code = 107 mmol/L 98-107 Chloride Level) CO2 (test code = CO2) 28 mmol/L 21-32 Anion Gap (test code = 9 mmol/L 7-16 Anion Gap) BUN (test code = BUN) 58 mg/dL 7-18 H Creatinine Level (test code 2.1 mg/dL 0.6-1.0 H = Creatinine Level) Glucose Level (test code = 144 mg/dL 74-106 H Glucose Level) Calcium Level (test code = 8.0 mg/dL 8.5-10.1 L Calcium Level) eGFR AA (test code = eGFR 29 mL/min/1.73 m2 N AA) eGFR Non-AA (test code = 24 mL/min/1.73 m2 N eGFR Non-AA) Basic Metabolic [id number] 15:04:15 Test Item Value Reference Range Interpretation Comments Sodium Level (test code = 144 mmol/L 136-145 Sodium Level) Potassium Level (test code 3.6 mmol/L 3.5-5.1 = Potassium Level) Chloride Level (test code = 107 mmol/L 98-107 Chloride Level) CO2 (test code = CO2) 28 mmol/L 21-32 Anion Gap (test code = 9 mmol/L 7-16 Anion Gap) BUN (test code = BUN) 58 mg/dL 7-18 H Creatinine Level (test code 2.1 mg/dL 0.6-1.0 H = Creatinine Level) Glucose Level (test code = 144 mg/dL 74-106 H Glucose Level) Calcium Level (test code = 8.0 mg/dL 8.5-10.1 L Calcium Level) eGFR AA (test code = eGFR 29 mL/min/1.73 m2 N AA) eGFR Non-AA (test code = 24 mL/min/1.73 m2 N eGFR Non-AA) POC [id number] 14:39:00 Test Item Value Reference Range Interpretation Comments Glucose POC (test 150 mg/dL 74-106 H POC Glucos e used on code = Glucose POC) critical ly ill patients is considered " off-label use" and has no t been cleared or appr zuly by the FDA. Altern ative testing methods should be considered i f the patient is crit ically ill. [id number] 14:36:42 Test Item Value Reference Range Interpretation Comments Acetone (Ketones) (test code = Negative Negative Acetone (Ketones)) POC [id number] 13:00:16 Test Item Value Reference Range Interpretation Comments Glucose POC (test 153 mg/dL 74-106 H POC Glucos e used on code = Glucose POC) critical ly ill patients is considered " off-label use" and has no t been cleared or appr zuly by the FDA. Altern ative testing methods should be considered i f the patient is crit ically ill. POC [id number] 11:05:01 Test Item Value Reference Range Interpretation Comments Glucose POC (test 189 mg/dL 74-106 H POC Glucos e used on code = Glucose POC) critical ly ill patients is considered " off-label use" and has no t been cleared or appr zuly by the FDA. Altern ative testing methods should be considered i f the patient is crit ically ill. POC [id number] 10:28:41 Test Item Value Reference Range Interpretation Comments Glucose POC (test 208 mg/dL 74-106 H POC Glucos e used on code = Glucose POC) critical ly ill patients is considered " off-label use" and has no t been cleared or appr zuly by the FDA. Altern ative testing methods should be considered i f the patient is crit ically ill. Automated [id number] 09:37:36 Test Item Value Reference Range Interpretation Comments Neutro Auto (test code = Neutro 76.5 % N Auto) Lymph Auto (test code = Lymph Auto) 18.8 % N [place] Auto (test code = [place] Auto) 4.5 % N Eos, Auto (test code = Eos, Auto) 0.0 % N Basophil Auto (test code = Basophil 0.2 % N Auto) Neutro Absolute (test code = Neutro 13.4 x10 2.7-7.3 H Absolute) Lymph Absolute (test code = Lymph 3.3 x10 0.8-3.5 Absolute) [place] Absolute (test code = [place] 0.8 x10 0.3-0.9 Absolute) Eos Absolute (test code = Eos 0.0 x10 0.0-0.3 Absolute) Baso Absolute (test code = Baso 0.0 x10 0.0-0.1 Absolute) POC [id number] 09:18:07 Test Item Value Reference Range Interpretation Comments Glucose POC (test 216 mg/dL 74-106 H POC Glucos e used on code = Glucose POC) critical ly ill patients is considered " off-label use" and has no t been cleared or appr zuly by the FDA. Altern ative testing methods should be considered i f the patient is crit ically ill. POC [id number] 08:09:31 Test Item Value Reference Range Interpretation Comments Glucose POC (test 209 mg/dL 74-106 H POC Glucos e used on code = Glucose POC) critical ly ill patients is considered " off-label use" and has no t been cleared or appr zuly by the FDA. Altern ative testing methods should be considered i f the patient is crit ically ill. Prothrombin Time and [id number] 07:10:51 Test Item Value Reference Range Interpretation Comments Prothrombin Time (test code = 24.6 seconds 9.2-12.0 H Prothrombin Time) INR (test code = INR) 2.4 ratio 0.9-1.2 H POC [id number] 07:09:31 Test Item Value Reference Range Interpretation Comments Glucose POC (test 214 mg/dL 74-106 H POC Glucos e used on code = Glucose POC) critical ly ill patients is considered " off-label use" and has no t been cleared or appr zuly by the FDA. Altern ative testing methods should be considered i f the patient is crit ically ill. Partial Thromboplastin [id number] 06:59:00 Test Item Value Reference Range Interpretation Comments Partial Thromboplastin 39.3 seconds 24.0-35.0 H APTT Heparin Time (test code = Therapeuti c Range: Partial Thromboplastin 47.9- 80.4 seconds Time) Haptoglobin [id number] 06:11:38<10Performed At: [facility] [id number] Sanjai MD Ph:[id number] Glucose 2020-04-01 06:07:13 Test Item Value Reference Range Interpretation Comments Glucose POC (test 204 mg/dL 74-106 H POC Glucos e used on code = Glucose POC) critical ly ill patients is considered " off-label use" and has no t been cleared or appr zuly by the FDA. Altern ative testing methods should be considered i f the patient is crit ically ill. POC [id number] 06:07:12 Test Item Value Reference Range Interpretation Comments Glucose POC (test 238 mg/dL 74-106 H POC Glucos e used on code = Glucose POC) critical ly ill patients is considered " off-label use" and has no t been cleared or appr zuly by the FDA. Altern ative testing methods should be considered i f the patient is crit ically ill. POC [id number] 06:07:11 Test Item Value Reference Range Interpretation Comments Glucose POC (test 269 mg/dL 74-106 H POC Glucos e used on code = Glucose POC) critical ly ill patients is considered " off-label use" and has no t been cleared or appr zuly by the FDA. Altern ative testing methods should be considered i f the patient is crit ically ill. Comprehensive Metabolic [id number] 04:53:13 Test Item Value Reference Range Interpretation Comments Sodium Level (test code = 140 mmol/L 136-145 Sodium Level) Potassium Level (test code = 4.1 mmol/L 3.5-5.1 Potassium Level) Chloride Level (test code = 105 mmol/L 98-107 Chloride Level) CO2 (test code = CO2) 21 mmol/L 21-32 Anion Gap (test code = Anion 14 mmol/L 7-16 Gap) BUN (test code = BUN) 53 mg/dL 7-18 H Creatinine Level (test code = 2.1 mg/dL 0.6-1.0 H Creatinine Level) Glucose Level (test code = 289 mg/dL 74-106 H Glucose Level) Calcium Level (test code = 8.3 mg/dL 8.5-10.1 L Calcium Level) Alk Phos (test code = Alk 111 IntlUnit/L 50-136 Phos) Bilirubin Total (test code = 4.5 mg/dL 0.2-1.0 H Bilirubin Total) Albumin Level (test code = 2.1 g/dL 3.4-5.0 L Albumin Level) Protein Total (test code = 7.6 g/dL 6.4-8.2 Protein Total) ALT (test code = ALT) 19 IntlUnit/L 12-78 AST (test code = AST) 111 IntlUnit/L 15-37 H Lipase [id number] 04:53:13 Test Item Value Reference Range Interpretation Comments Lipase Level (test code = 228 IntlUnit/L 73-393 Lipase Level) Comprehensive Metabolic [id number] 04:53:13 Test Item Value Reference Range Interpretation Comments Sodium Level (test code = 140 mmol/L 136-145 Sodium Level) Potassium Level (test code 4.1 mmol/L 3.5-5.1 = Potassium Level) Chloride Level (test code = 105 mmol/L 98-107 Chloride Level) CO2 (test code = CO2) 21 mmol/L 21-32 Anion Gap (test code = 14 mmol/L 7-16 Anion Gap) BUN (test code = BUN) 53 mg/dL 7-18 H Creatinine Level (test code 2.1 mg/dL 0.6-1.0 H = Creatinine Level) Glucose Level (test code = 289 mg/dL 74-106 H Glucose Level) Calcium Level (test code = 8.3 mg/dL 8.5-10.1 L Calcium Level) Alk Phos (test code = Alk 111 IntlUnit/L 50-136 Phos) Bilirubin Total (test code 4.5 mg/dL 0.2-1.0 H = Bilirubin Total) Albumin Level (test code = 2.1 g/dL 3.4-5.0 L Albumin Level) Protein Total (test code = 7.6 g/dL 6.4-8.2 Protein Total) ALT (test code = ALT) 19 IntlUnit/L 12-78 AST (test code = AST) 111 IntlUnit/L 15-37 H eGFR AA (test code = eGFR 29 mL/min/1.73 m2 N AA) Comprehensive Metabolic [id number] 04:53:13 Test Item Value Reference Range Interpretation Comments Sodium Level (test code = 140 mmol/L 136-145 Sodium Level) Potassium Level (test code 4.1 mmol/L 3.5-5.1 = Potassium Level) Chloride Level (test code = 105 mmol/L 98-107 Chloride Level) CO2 (test code = CO2) 21 mmol/L 21-32 Anion Gap (test code = 14 mmol/L 7-16 Anion Gap) BUN (test code = BUN) 53 mg/dL 7-18 H Creatinine Level (test code 2.1 mg/dL 0.6-1.0 H = Creatinine Level) Glucose Level (test code = 289 mg/dL 74-106 H Glucose Level) Calcium Level (test code = 8.3 mg/dL 8.5-10.1 L Calcium Level) Alk Phos (test code = Alk 111 IntlUnit/L 50-136 Phos) Bilirubin Total (test code 4.5 mg/dL 0.2-1.0 H = Bilirubin Total) Albumin Level (test code = 2.1 g/dL 3.4-5.0 L Albumin Level) Protein Total (test code = 7.6 g/dL 6.4-8.2 Protein Total) ALT (test code = ALT) 19 IntlUnit/L 12-78 AST (test code = AST) 111 IntlUnit/L 15-37 H eGFR AA (test code = eGFR 29 mL/min/1.73 m2 N AA) eGFR Non-AA (test code = 24 mL/min/1.73 m2 N eGFR Non-AA) Complete Blood Count with Man [id number] 04:39:50 Test Item Value Reference Range Interpretation Comments WBC (test code = WBC) 17.5 x10 4.8-10.8 H RBC (test code = RBC) 2.97 x10 4.20-5.50 L Hgb (test code = Hgb) 8.6 g/dL 12.0-16.0 L Hct (test code = Hct) 25.0 % 35.0-47.0 L MCV (test code = MCV) 84.2 fL 80.0-95.0 MCH (test code = MCH) 28.8 pg 26.0-32.0 MCHC (test code = MCHC) 34.2 g/dL 31.0-36.0 RDW (test code = RDW) 19.7 % 11.5-14.5 H Platelets (test code = 38 x10 140-440 [facility] Platelets) 04/01/2020 04: 39:44 CDT/lrj MPV (test code = MPV) 6.8 fL 7.5-11.2 L POC [id number] 03:06:47 Test Item Value Reference Range Interpretation Comments Glucose POC (test 320 mg/dL 74-106 H POC Glucos e used on code = Glucose POC) critical ly ill patients is considered " off-label use" and has no t been cleared or appr zuly by the FDA. Altern ative testing methods should be considered i f the patient is crit ically ill. POC [id number] 02:45:11 Test Item Value Reference Range Interpretation Comments Glucose POC (test 364 mg/dL 74-106 H POC Glucos e used on code = Glucose POC) critical ly ill patients is considered " off-label use" and has no t been cleared or appr zuly by the FDA. Altern ative testing methods should be considered i f the patient is crit ically ill. POC [id number] 02:45:10 Test Item Value Reference Range Interpretation Comments Glucose POC (test 418 mg/dL 74-106 Notifie dPOC Glucose code = Glucose POC) used on critically ill patients is con sidered "off-label use" and has not been cleare d or approved by the FDA. Alternative moisés ting methods should be considered if t he patient is crit ically ill. XR Chest 1 View [id number] 01:58:04Patient: JANIS PATTERSON Date/Time04/01/2020 01:05 CDTReason for ExamET tube placementReportIndication: IntubationComparison: Chest dated 03/31/20202022Findings: Single AP view of the chest. There is been interval intubation. The endotracheal tube terminates 4.65 cm above the bailey. NG tube projects into the stomach with the tip off the bottomof the film. There is moderate cardiomegaly. There is patchy alveolar disease throughout the right rocco ng.. The visualized bony thorax is intact.Impression:Support apparatus in satisfactory position as above.Moderate cardiomegaly.Patchy alveolar disease throughout the right lung, suggestive of pneumonia.RL: [id number] signed by Jazlyn Le MD, PhD at 04/01/2020 2:00 AM FinalDictated by: Contributor_system, PSCRIBE_CTZDictated DT/TM: 04/01/2020 2:01 amSigned by: MD Dawson, Jazlyn GSigned (Electronic Signature): 04/01/2020 1:58 amPOC G3+ [id number] 01:42:00 Test Item Value Reference Range Interpretation Comments pH Art (test code = pH Art) 7.32 pH units 7.35-7.45 L pCO2 Art (test code = pCO2 Art) 39.8 mmHg 35.0-45.0 pO2 Art (test code = pO2 Art) 128.0 mmHg 85.0-100.0 H O2 Sat Art (test code = O2 Sat 99.0 % 92.0-98.5 H Art) HCO3 Art (test code = HCO3 Art) 20.6 mmol/L 22.0-26.0 L FIO2% (test code = FIO2%) 100.0 % N Base Excess Arterial (test code -5 mmol/L -2-2 L = Base Excess Arterial) Jose Enrique's Test (test code = Pass Pass Jose Enrique's Test) PEEP/CPAP (test code = 5 cmH20 N PEEP/CPAP) Del Sys (test code = Del Sys) Ventilator N Mode iStat (test code = Mode AC N iStat) Resp Rate (test code = Resp 14 br/min N Rate) Performing Site (test code = R Radial N Performing Site) VT (cc) (test code = VT (cc)) 500.0 N POC [id number] 22:44:29 Test Item Value Reference Range Interpretation Comments Glucose POC (test 477 mg/dL 74-106 Notifie dPOC Glucose code = Glucose POC) used on critically ill patients is con sidered "off-label use" and has not been cleare d or approved by the FDA. Alternative moisés ting methods should be considered if t he patient is crit ically ill. POC [id number] 21:40:39 Test Item Value Reference Range Interpretation Comments Glucose POC (test 523 mg/dL 74-106 Ordered La b DrawPOC code = Glucose POC) Glucose used on critically ill patients is considered " off-label use" and has no t been cleared or appr uzly by the FDA. Altern ative testing methods should be considered i f the patient is crit ically ill. POC [id number] 21:40:38 Test Item Value Reference Range Interpretation Comments Glucose POC (test 538 mg/dL 74-106 Result Not ConfirmedPOC code = Glucose POC) Glucose used on critically ill patients is considered " off-label use" and has no t been cleared or appr zuly by the FDA. Altern ative testing methods should be considered i f the patient is crit ically ill. POC [id number] 21:40:37 Test Item Value Reference Range Interpretation Comments Glucose POC (test 593 mg/dL 74-106 Result Not ConfirmedPOC code = Glucose POC) Glucose used on critically ill patients is considered " off-label use" and has no t been cleared or appr zuly by the FDA. Altern ative testing methods should be considered i f the patient is crit ically ill. XR Chest 1 View [id number] 20:42:40Patient: JANIS PATTERSON Date/Time03/31/2020 20:35 CDTReason for ExamShortness of breathReportEXAM: XR Chest 1 View FrontalORDERING PHYSICIAN:Micky LacyORY: Shortness of breath.COMPARISON: 03/21/2020FINDINGS:Portable semiupright frontalview of the chest. Bilateral alveolar and interstitial opacities are present, right greater than left. These are more pronounced than on the prior examination. Lung volumes are reduced. There is stable cardiomegaly. Atherosclerotic changes are seen in the aorta. Mediastinal and hilar contours are normal. Osseous structures are unremarkable.IMPRESSION:Cardiomegaly. Bilateral alveolar and interstitial opacities, asymmetrically worse on the right. Findings may be related to asymmetric edema or multifocal pneumonia.RL: [id number] of report Final Dictated by: Contributor_system, PSCRIBE_CTZDictated DT/TM: 03/31/2020 8:44 pmSigned by: MD Steven, Huey Moreno (Electronic Signature): 03/31/2020 8:42 pmPOC G3+ [id number] 20:26:58 Test Item Value Reference Range Interpretation Comments pH Art (test code = pH Art) 7.46 pH units 7.35-7.45 H pCO2 Art (test code = pCO2 Art) 25.4 mmHg 35.0-45.0 pO2 Art (test code = pO2 Art) 58.0 mmHg 85.0-100.0 O2 Sat Art (test code = O2 Sat 92.0 % 92.0-98.5 Art) HCO3 Art (test code = HCO3 Art) 18.2 mmol/L 22.0-26.0 L FIO2% (test code = FIO2%) 36.0 % N Base Excess Arterial (test code -6 mmol/L -2-2 L = Base Excess Arterial) Jose Enrique's Test (test code = Pass Pass Jose Enrique's Test) Del Sys (test code = Del Sys) Nasal Can N Flow (LPM) (test code = Flow 4.0 N (LPM)) Performing Site (test code = R Radial N Performing Site) POC [id number] 19:50:11 Test Item Value Reference Range Interpretation Comments Glucose POC (test 482 mg/dL 74-106 Result Not ConfirmedPOC code = Glucose POC) Glucose used on critically ill patients is considered " off-label use" and has no t been cleared or appr zuly by the FDA. Altern ative testing methods should be considered i f the patient is crit ically ill. POC [id number] 19:50:09 Test Item Value Reference Range Interpretation Comments Glucose POC (test 501 mg/dL 74-106 MD Jordan dPPEDRO Glucose code = Glucose POC) used on critically ill patients is con sidered "off-label use" and has not been cleare d or approved by the FDA. Alternative moisés ting methods should be considered if t he patient is crit ically ill. POC [id number] 19:50:08 Test Item Value Reference Range Interpretation Comments Glucose POC (test 484 mg/dL 74-106 MD Jordan dPPEDRO Glucose code = Glucose POC) used on critically ill patients is con sidered "off-label use" and has not been cleare d or approved by the FDA. Alternative moisés ting methods should be considered if t he patient is crit ically ill. POC [id number] 19:50:06 Test Item Value Reference Range Interpretation Comments Glucose POC (test 436 mg/dL 74-106 MD Nikki Stokes Glucose code = Glucose POC) used on critically ill patients is con sidered "off-label use" and has not been cleare d or approved by the FDA. Alternative moisés ting methods should be considered if t he patient is crit ically ill. POC [id number] 17:18:46 Test Item Value Reference Range Interpretation Comments Glucose POC (test 416 mg/dL 74-106 Result Not ConfirmedPOC code = Glucose POC) Glucose used on critically ill patients is considered " off-label use" and has no t been cleared or appr zuly by the FDA. Altern ative testing methods should be considered i f the patient is crit ically ill. Red Blood Cells [id number] 10:21:34 Test Item Value Reference Range Interpretation Comments # of Units (test 1 N code = # of Units) RBC Trn Reason High risk, even N (test code = RBC if Hgb > 7 Trn Reason) RBC Product Ready RBC Ready 03/31/2020 10:21 (test code = RBC OATISJUCALL ED TO Product Ready) MAE [id number] 08:40:13 Test Item Value Reference Range Interpretation Comments RBC Morph (test code = RBC As Indicated Normal A Morph) Anisocyte (test code = 2+ A Anisocyte) Hypochromia (test code = 2+ A Hypochromia) Plt Estimation (test code = Plt Decreased Normal A Estimation) Complete Blood Count with [id number] 08:22:12 Test Item Value Reference Range Interpretation Comments WBC (test code = WBC) 10.4 x10 4.8-10.8 RBC (test code = RBC) 2.65 x10 4.20-5.50 L Hgb (test code = Hgb) 7.6 g/dL 12.0-16.0 Result s called to and read back by: WANG TAYLOR 03/31/2020 0750 MCV (test code = MCV) 83.3 fL 80.0-95.0 Hct (test code = Hct) 22.0 % 35.0-47.0 Result s called to and read back by: WANG TAYLOR 03/31/2020 0750 MCHC (test code = MCHC) 34.4 g/dL 31.0-36.0 RDW (test code = RDW) 20.5 % 11.5-14.5 H MCH (test code = MCH) 28.6 pg 26.0-32.0 Platelets (test code = 26 x10 140-440 Resul ts called to and Platelets) read back by: WANG TAYLOR 03/31/2020 0750 MPV (test code = MPV) 6.4 fL 7.5-11.2 L Slide Review (test code Smear N = Slide Review) Automated [id number] 08:22:12 Test Item Value Reference Range Interpretation Comments Neutro Auto (test code = Neutro Auto) 75.0 % N Lymph Auto (test code = Lymph Auto) 18.9 % N [place] Auto (test code = [place] Auto) 5.3 % N Eos, Auto (test code = Eos, Auto) 0.2 % N Basophil Auto (test code = Basophil 0.6 % N Auto) Neutro Absolute (test code = Neutro 7.8 x10 2.7-7.3 H Absolute) Lymph Absolute (test code = Lymph 2.0 x10 0.8-3.5 Absolute) [place] Absolute (test code = [place] 0.6 x10 0.3-0.9 Absolute) Eos Absolute (test code = Eos 0.0 x10 0.0-0.3 Absolute) Baso Absolute (test code = Baso 0.1 x10 0.0-0.1 Absolute) Lactate [id number] 08:15:14 Test Item Value Reference Range Interpretation Comments LDH (test code = LDH) 1651 IntlUnit/L 84-246 H Basic Metabolic [id number] 07:03:40 Test Item Value Reference Range Interpretation Comments Sodium Level (test code 139 mmol/L 136-145 = Sodium Level) Potassium Level (test 4.0 mmol/L 3.5-5.1 code = Potassium Level) Chloride Level (test 103 mmol/L 98-107 code = Chloride Level) CO2 (test code = CO2) 27 mmol/L 21-32 Anion Gap (test code = 9 mmol/L 7-16 Anion Gap) BUN (test code = BUN) 30 mg/dL 7-18 H Creatinine Level (test 1.4 mg/dL 0.6-1.0 H code = Creatinine Level) Glucose Level (test 414 mg/dL 74-106 CTRB/Saúl RENTERIA, code = Glucose Level) 07:03:25 CDT KH Calcium Level (test 8.4 mg/dL 8.5-10.1 L code = Calcium Level) Basic Metabolic [id number] 07:03:40 Test Item Value Reference Range Interpretation Comments Sodium Level (test 139 mmol/L 136-145 code = Sodium Level) Potassium Level (test 4.0 mmol/L 3.5-5.1 code = Potassium Level) Chloride Level (test 103 mmol/L 98-107 code = Chloride Level) CO2 (test code = CO2) 27 mmol/L 21-32 Anion Gap (test code 9 mmol/L 7-16 = Anion Gap) BUN (test code = BUN) 30 mg/dL 7-18 H Creatinine Level 1.4 mg/dL 0.6-1.0 H (test code = Creatinine Level) Glucose Level (test 414 mg/dL 74-106 CTRB/Saúl RENTERIA, code = Glucose Level) 07:03:25 CDT KH Calcium Level (test 8.4 mg/dL 8.5-10.1 L code = Calcium Level) eGFR AA (test code = 47 mL/min/1.73 N eGFR AA) m2 Basic Metabolic [id number] 07:03:40 Test Item Value Reference Range Interpretation Comments Sodium Level (test 139 mmol/L 136-145 code = Sodium Level) Potassium Level (test 4.0 mmol/L 3.5-5.1 code = Potassium Level) Chloride Level (test 103 mmol/L 98-107 code = Chloride Level) CO2 (test code = CO2) 27 mmol/L 21-32 Anion Gap (test code 9 mmol/L 7-16 = Anion Gap) BUN (test code = BUN) 30 mg/dL 7-18 H Creatinine Level 1.4 mg/dL 0.6-1.0 H (test code = Creatinine Level) Glucose Level (test 414 mg/dL 74-106 CTRB/Saúl RENTERIA, code = Glucose Level) 07:03:25 CDT KH Calcium Level (test 8.4 mg/dL 8.5-10.1 L code = Calcium Level) eGFR AA (test code = 47 mL/min/1.73 N eGFR AA) m2 eGFR Non-AA (test 39 mL/min/1.73 N code = eGFR Non-AA) m2 POC [id number] 21:51:26 Test Item Value Reference Range Interpretation Comments Glucose POC (test 298 mg/dL 74-106 H POC Glucos e used on code = Glucose POC) critical ly ill patients is considered " off-label use" and has no t been cleared or appr zuly by the FDA. Altern ative testing methods should be considered i f the patient is crit ically ill. Fresh Frozen [id number] 17:22:36 Test Item Value Reference Range Interpretation Comments # of Units (test code = # 2 N of Units) FFP Transfuse Reason TTP, N (test code = FFP Hemolytic-uremic Transfuse Reason) syndrome, or DIC FFP Product Ready (test FFP Ready code = FFP Product Ready) [id number] 16:56:18Patient: JANIS PATTERSON Date/Time03/30/2020 16:33 CDTReason for Examjaundice;Elevated liver function testReportLiver sonogramHISTORY: Jaundice, abnormal liver function studies, epigastric pain, nausea and vomitingCOMPARISON: CT abdomen and pelvis dated 03/27/2020, abdominal sonogram dated 03/22/2020TECHNIQUE: Real-time sonographic images of the right upper quadrant of the abdomen obtained.FINDINGS: Elongation of the right lobe of the liver noted. Portal triads are preserved. Gallbladder unremarkable. Common bile duct measures 4 mm. Visualized pancreas unremarkable. Right kidney measures 11.4 x 4.8 x 5.2 cm. 2.8 cm cyst is seen about the inferior pole of the kidney. No hydronephrosis. Sampled IVC unremarkable. No free fluid.IMPRESSION:1. 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 2.8 cm simple appearing cyst inferior pole right kidney. No further imaging follow-up indicated. Final Dictated by: MD Ramiro, Angie DT/TM: 03/30/2020 4:52 pmSigned by: MD Rubio JamesSigned (Electronic Signature): 03/30/2020 4:56 pmUS Lower Ext Venous Duplex [id number] 16:52:20 Patient: JANIS PATTERSON Date/Time03/30/2020 16:33 CDTReason for ExamDVTReportUltrasound bilateral lower extremity venous DopplerHISTORY: Shortness of breath, previous knee arthroplasty, DVTCOMPARISON: None availableTECHNIQUE: Real-time sonographic images of bilateral common femoral, superficial femoral, popliteal, peroneal, and tibial veins obtained with color/spectral Doppler analysis.FINDINGS: Normal compressibility with phasic and augmented flow identified throughout the sampled bilateral lower extremity deep veins. No demonstrated popliteal cyst.IMPRESSION: No visualized lower extremity DVT. Final Dictated by: MD Rubio JamesDictated DT/TM: 03/30/2020 4:50 pmSigned by: MD Rubio JamesSigned (Electronic Signature): 03/30/2020 4:52 pmHeparin Induced Platelet [id number] 14:16:060.100Performed At: [facility] [address] [id number] Sanjai MD Ph:[phone] [id number] 13:40:14 Test Item Value Reference Range Interpretation Comments # of Units (test code = 1 N # of Units) PLT Transfuse Reason Plts <50,000 with N (test code = PLT bleeding or procedure Transfuse Reason) Platelet Product Ready PLT Ready (test code = Platelet Product Ready) POC [id number] 12:14:06 Test Item Value Reference Range Interpretation Comments Glucose POC (test 316 mg/dL 74-106 H POC Glucos e used on code = Glucose POC) critical ly ill patients is considered " off-label use" and has no t been cleared or appr zuly by the FDA. Altern ative testing methods should be considered i f the patient is crit ically ill. [id number] 09:30:25 Test Item Value Reference Range Interpretation Comments RBC Morph (test code = RBC As Indicated Normal A Morph) Anisocyte (test code = 2+ A Anisocyte) Hypochromia (test code = 2+ A Hypochromia) Microcyte (test code = 1+ A Microcyte) Poik (test code = Poik) 1+ A Acanthocyte (test code = 1+ A Acanthocyte) Plt Estimation (test code = Plt Decreased Normal A Estimation) DANA [id number] 08:40:11 Test Item Value Reference Range Interpretation Comments Methodology (test code = Test-Tube(TT) Methodology) Poly (test code = Poly) 0 5 " Poly (test code = 5 " Poly) 0 Poly CC (test code = Poly CC) 2+ DANA - Polyspecific (test code = Negative DANA - Polyspecific) Complete Blood Count with [id number] 07:54:03 Test Item Value Reference Range Interpretation Comments WBC (test code = WBC) 9.6 x10 4.8-10.8 RBC (test code = RBC) 2.80 x10 4.20-5.50 L Hgb (test code = Hgb) 8.1 g/dL 12.0-16.0 L Hct (test code = Hct) 23.3 % 35.0-47.0 Result s called to and read back by: Melissa NOLASCO RN/COLT 03/17 07:53:59 CDT MCV (test code = MCV) 83.1 fL 80.0-95.0 RDW (test code = RDW) 19.8 % 11.5-14.5 H MCHC (test code = MCHC) 34.8 g/dL 31.0-36.0 MCH (test code = MCH) 28.9 pg 26.0-32.0 Platelets (test code = 14 x10 140-440 Resul ts called to and Platelets) read back by: WANG HYDE 03/17 07:53:59 CDT MPV (test code = MPV) 8.1 fL 7.5-11.2 Slide Review (test code Smear N = Slide Review) Automated [id number] 07:54:03 Test Item Value Reference Range Interpretation Comments Neutro Auto (test code = Neutro Auto) 58.7 % N Lymph Auto (test code = Lymph Auto) 25.8 % N [place] Auto (test code = [place] Auto) 11.3 % N Eos, Auto (test code = Eos, Auto) 3.4 % N Basophil Auto (test code = Basophil 0.8 % N Auto) Neutro Absolute (test code = Neutro 5.7 x10 2.7-7.3 Absolute) Lymph Absolute (test code = Lymph 2.5 x10 0.8-3.5 Absolute) [place] Absolute (test code = [place] 1.1 x10 0.3-0.9 H Absolute) Eos Absolute (test code = Eos 0.3 x10 0.0-0.3 Absolute) Baso Absolute (test code = Baso 0.1 x10 0.0-0.1 Absolute) D-Dimer [id number] 07:54:03 Test Item Value Reference Range Interpretation Comments D Dimer, 13.68 mg/L FEU .19-.50 H Results chen d to and (Quant.) (test read back by: FABIANO coleman = D Dimer, ROLF NOLASCO/COLT 03/30/2020 (Quant.)) 07:53:27 CDTThe D-Dimer assay is intend ed for use as an aid i n the diagnosis of De ep Vein Thrombosis(DVT) or Pulmonary Embol ism(PE) except in patie nts with the following: *Therapeutic do se anticoagulant t herapy for >24 hours *Fibrinolytic t herapy within previous 7 days *Trauma or rand rgery within previous 4 weeks *Disseminate d malignancies *Aortic aneurysm *S epsis, severe infectio ns, pneumonia, rock re skin infections *Cirrhosis * A cu t-off value of <0.5 m g/L FEU makes a diagnos is of DVT or PEunlikely. Comprehensive Metabolic [id number] 07:34:37 Test Item Value Reference Range Interpretation Comments Sodium Level (test code = 142 mmol/L 136-145 Sodium Level) Potassium Level (test code = 3.5 mmol/L 3.5-5.1 Potassium Level) Chloride Level (test code = 105 mmol/L 98-107 Chloride Level) CO2 (test code = CO2) 28 mmol/L 21-32 Anion Gap (test code = Anion 9 mmol/L 7-16 Gap) BUN (test code = BUN) 21 mg/dL 7-18 H Creatinine Level (test code = 1.2 mg/dL 0.6-1.0 H Creatinine Level) Glucose Level (test code = 284 mg/dL 74-106 H Glucose Level) Calcium Level (test code = 8.4 mg/dL 8.5-10.1 L Calcium Level) Alk Phos (test code = Alk 123 IntlUnit/L 50-136 Phos) Bilirubin Total (test code = 4.8 mg/dL 0.2-1.0 H Bilirubin Total) Albumin Level (test code = 2.1 g/dL 3.4-5.0 L Albumin Level) Protein Total (test code = 7.1 g/dL 6.4-8.2 Protein Total) ALT (test code = ALT) 15 IntlUnit/L 12-78 AST (test code = AST) 59 IntlUnit/L 15-37 H Lactate [id number] 07:34:37 Test Item Value Reference Range Interpretation Comments LDH (test code = LDH) 1335 IntlUnit/L 84-246 H Comprehensive Metabolic [id number] 07:34:37 Test Item Value Reference Range Interpretation Comments Sodium Level (test code = 142 mmol/L 136-145 Sodium Level) Potassium Level (test code 3.5 mmol/L 3.5-5.1 = Potassium Level) Chloride Level (test code = 105 mmol/L 98-107 Chloride Level) CO2 (test code = CO2) 28 mmol/L 21-32 Anion Gap (test code = 9 mmol/L 7-16 Anion Gap) BUN (test code = BUN) 21 mg/dL 7-18 H Creatinine Level (test code 1.2 mg/dL 0.6-1.0 H = Creatinine Level) Glucose Level (test code = 284 mg/dL 74-106 H Glucose Level) Calcium Level (test code = 8.4 mg/dL 8.5-10.1 L Calcium Level) Alk Phos (test code = Alk 123 IntlUnit/L 50-136 Phos) Bilirubin Total (test code 4.8 mg/dL 0.2-1.0 H = Bilirubin Total) Albumin Level (test code = 2.1 g/dL 3.4-5.0 L Albumin Level) Protein Total (test code = 7.1 g/dL 6.4-8.2 Protein Total) ALT (test code = ALT) 15 IntlUnit/L 12-78 AST (test code = AST) 59 IntlUnit/L 15-37 H eGFR AA (test code = eGFR 56 mL/min/1.73 m2 N AA) Lipase [id number] 07:34:37 Test Item Value Reference Range Interpretation Comments Lipase Level (test code = 492 IntlUnit/L 73-393 H Lipase Level) Bilirubin [id number] 07:34:37 Test Item Value Reference Range Interpretation Comments Bilirubin Direct (test code = 2.60 mg/dL 0.00-0.20 H Bilirubin Direct) Comprehensive Metabolic [id number] 07:34:37 Test Item Value Reference Range Interpretation Comments Sodium Level (test code = 142 mmol/L 136-145 Sodium Level) Potassium Level (test code 3.5 mmol/L 3.5-5.1 = Potassium Level) Chloride Level (test code = 105 mmol/L 98-107 Chloride Level) CO2 (test code = CO2) 28 mmol/L 21-32 Anion Gap (test code = 9 mmol/L 7-16 Anion Gap) BUN (test code = BUN) 21 mg/dL 7-18 H Creatinine Level (test code 1.2 mg/dL 0.6-1.0 H = Creatinine Level) Glucose Level (test code = 284 mg/dL 74-106 H Glucose Level) Calcium Level (test code = 8.4 mg/dL 8.5-10.1 L Calcium Level) Alk Phos (test code = Alk 123 IntlUnit/L 50-136 Phos) Bilirubin Total (test code 4.8 mg/dL 0.2-1.0 H = Bilirubin Total) Albumin Level (test code = 2.1 g/dL 3.4-5.0 L Albumin Level) Protein Total (test code = 7.1 g/dL 6.4-8.2 Protein Total) ALT (test code = ALT) 15 IntlUnit/L 12-78 AST (test code = AST) 59 IntlUnit/L 15-37 H eGFR AA (test code = eGFR 56 mL/min/1.73 m2 N AA) eGFR Non-AA (test code = 46 mL/min/1.73 m2 N eGFR Non-AA) Reticulocyte [id number] 07:32:16 Test Item Value Reference Range Interpretation Comments Reticulocyte % (test code = 4.6 % 0.5-2.5 H Reticulocyte %) Prothrombin Time and [id number] 06:47:18 Test Item Value Reference Range Interpretation Comments Prothrombin Time (test code = 17.5 seconds 9.2-12.0 H Prothrombin Time) INR (test code = INR) 1.7 ratio 0.9-1.2 H Partial Thromboplastin [id number] 06:47:18 Test Item Value Reference Range Interpretation Comments Partial Thromboplastin 47.6 seconds 24.0-35.0 H APTT Heparin Time (test code = Therapeuti c Range: Partial Thromboplastin 47.9- 80.4 seconds Time) POC [id number] 05:41:33 Test Item Value Reference Range Interpretation Comments Glucose POC (test 292 mg/dL 74-106 H POC Glucos e used on code = Glucose POC) critical ly ill patients is considered " off-label use" and has no t been cleared or appr zuly by the FDA. Altern ative testing methods should be considered i f the patient is crit ically ill. POC [id number] 20:14:35 Test Item Value Reference Range Interpretation Comments Glucose POC (test 194 mg/dL 74-106 H POC Glucos e used on code = Glucose POC) critical ly ill patients is considered " off-label use" and has no t been cleared or appr zuly by the FDA. Altern ative testing methods should be considered i f the patient is crit ically ill. POC [id number] 16:54:44 Test Item Value Reference Range Interpretation Comments Glucose POC (test 205 mg/dL 74-106 H POC Glucos e used on code = Glucose POC) critical ly ill patients is considered " off-label use" and has no t been cleared or appr zuly by the FDA. Altern ative testing methods should be considered i f the patient is crit ically ill. Magnesium [id number] 13:15:11 Test Item Value Reference Range Interpretation Comments Magnesium Level (test code = 1.8 mg/dL 1.6-2.6 Magnesium Level) Platelet [id number] 12:35:33 Test Item Value Reference Range Interpretation Comments # of Units (test code = # of 1 N Units) PLT Transfuse Reason (test code Plts <20,000 N = PLT Transfuse Reason) Platelet Product Ready (test PLT Ready code = Platelet Product Ready) Red Blood Cells [id number] 12:35:32 Test Item Value Reference Range Interpretation Comments # of Units (test code = 1 N # of Units) RBC Trn Reason (test High risk, even if N code = RBC Trn Reason) Hgb > 7 RBC Product Ready (test RBC Ready code = RBC Product Ready) [id number] 12:27:50 Test Item Value Reference Range Interpretation Comments Previous History (test code Yes Prev History = Previous History) BBID (test code = BBID) [id number] Methodology (test code = Ortho-Vision(OV) Methodology) Anti-A (test code = Anti-A) 4+ Anti-B (test code = Anti-B) 4+ Anti-D (test code = Anti-D) 4+ DCon (test code = DCon) 0 A1 (test code = A1) 0 B cells (test code = B 0 cells) ABORh (test code = ABORh) AB POS 2C [id number] 12:27:50 Test Item Value Reference Range Interpretation Comments Methodology (test code = Ortho-Vision(OV) Methodology) SC1 (test code = SC1) 0 SC2 (test code = SC2) 0 Antibody Screen (2C) (test Negative ABSC code = Antibody Screen (2C)) POC [id number] 11:15:10 Test Item Value Reference Range Interpretation Comments Glucose POC (test 230 mg/dL 74-106 H POC Glucos e used on code = Glucose POC) critical ly ill patients is considered " off-label use" and has no t been cleared or appr zuly by the FDA. Altern ative testing methods should be considered i f the patient is crit ically ill. Comprehensive Metabolic [id number] 09:26:11 Test Item Value Reference Range Interpretation Comments Sodium Level (test code = 141 mmol/L 136-145 Sodium Level) Potassium Level (test code = 3.8 mmol/L 3.5-5.1 Potassium Level) Chloride Level (test code = 105 mmol/L 98-107 Chloride Level) CO2 (test code = CO2) 31 mmol/L 21-32 Anion Gap (test code = Anion 5 mmol/L 7-16 L Gap) BUN (test code = BUN) 18 mg/dL 7-18 Creatinine Level (test code = 1.2 mg/dL 0.6-1.0 H Creatinine Level) Glucose Level (test code = 223 mg/dL 74-106 H Glucose Level) Calcium Level (test code = 8.2 mg/dL 8.5-10.1 L Calcium Level) Alk Phos (test code = Alk 126 IntlUnit/L 50-136 Phos) Bilirubin Total (test code = 4.4 mg/dL 0.2-1.0 H Bilirubin Total) Albumin Level (test code = 2.0 g/dL 3.4-5.0 L Albumin Level) Protein Total (test code = 7.1 g/dL 6.4-8.2 Protein Total) ALT (test code = ALT) 13 IntlUnit/L 12-78 AST (test code = AST) 54 IntlUnit/L 15-37 H Comprehensive Metabolic [id number] 09:26:11 Test Item Value Reference Range Interpretation Comments Sodium Level (test code = 141 mmol/L 136-145 Sodium Level) Potassium Level (test code 3.8 mmol/L 3.5-5.1 = Potassium Level) Chloride Level (test code = 105 mmol/L 98-107 Chloride Level) CO2 (test code = CO2) 31 mmol/L 21-32 Anion Gap (test code = 5 mmol/L 7-16 L Anion Gap) BUN (test code = BUN) 18 mg/dL 7-18 Creatinine Level (test code 1.2 mg/dL 0.6-1.0 H = Creatinine Level) Glucose Level (test code = 223 mg/dL 74-106 H Glucose Level) Calcium Level (test code = 8.2 mg/dL 8.5-10.1 L Calcium Level) Alk Phos (test code = Alk 126 IntlUnit/L 50-136 Phos) Bilirubin Total (test code 4.4 mg/dL 0.2-1.0 H = Bilirubin Total) Albumin Level (test code = 2.0 g/dL 3.4-5.0 L Albumin Level) Protein Total (test code = 7.1 g/dL 6.4-8.2 Protein Total) ALT (test code = ALT) 13 IntlUnit/L 12-78 AST (test code = AST) 54 IntlUnit/L 15-37 H eGFR AA (test code = eGFR 56 mL/min/1.73 m2 N AA) Lipase [id number] 09:26:11 Test Item Value Reference Range Interpretation Comments Lipase Level (test code = 466 IntlUnit/L 73-393 H Lipase Level) Comprehensive Metabolic [id number] 09:26:11 Test Item Value Reference Range Interpretation Comments Sodium Level (test code = 141 mmol/L 136-145 Sodium Level) Potassium Level (test code 3.8 mmol/L 3.5-5.1 = Potassium Level) Chloride Level (test code = 105 mmol/L 98-107 Chloride Level) CO2 (test code = CO2) 31 mmol/L 21-32 Anion Gap (test code = 5 mmol/L 7-16 L Anion Gap) BUN (test code = BUN) 18 mg/dL 7-18 Creatinine Level (test code 1.2 mg/dL 0.6-1.0 H = Creatinine Level) Glucose Level (test code = 223 mg/dL 74-106 H Glucose Level) Calcium Level (test code = 8.2 mg/dL 8.5-10.1 L Calcium Level) Alk Phos (test code = Alk 126 IntlUnit/L 50-136 Phos) Bilirubin Total (test code 4.4 mg/dL 0.2-1.0 H = Bilirubin Total) Albumin Level (test code = 2.0 g/dL 3.4-5.0 L Albumin Level) Protein Total (test code = 7.1 g/dL 6.4-8.2 Protein Total) ALT (test code = ALT) 13 IntlUnit/L 12-78 AST (test code = AST) 54 IntlUnit/L 15-37 H eGFR AA (test code = eGFR 56 mL/min/1.73 m2 N AA) eGFR Non-AA (test code = 46 mL/min/1.73 m2 N eGFR Non-AA) [id number] 09:25:40 Test Item Value Reference Range Interpretation Comments RBC Morph (test code = RBC As Indicated Normal A Morph) Anisocyte (test code = 2+ A Anisocyte) Hypochromia (test code = 2+ A Hypochromia) Microcyte (test code = 1+ A Microcyte) Poik (test code = Poik) 1+ A Acanthocyte (test code = 1+ A Acanthocyte) Schistocytes (test code = 1+ A Schistocytes) Differential Comment (test code See Comment BANDS: 3% = Differential Comment) Plt Estimation (test code = Plt Decreased Normal A Estimation) Complete Blood Count with [id number] 09:06:53 Test Item Value Reference Range Interpretation Comments WBC (test code = WBC) 9.0 x10 4.8-10.8 RBC (test code = RBC) 2.64 x10 4.20-5.50 L Hgb (test code = Hgb) 7.7 g/dL 12.0-16.0 CTRB Juliana CUNHA Marj03/29/2020 09:05:38 CDT/PN Hct (test code = Hct) 22.5 % 35.0-47.0 CTRB Juliana ALPHONSE Mcmahan03/29/2020 09:05:38 CDT/PN MCV (test code = MCV) 85.4 fL 80.0-95.0 MCHC (test code = MCHC) 34.3 g/dL 31.0-36.0 RDW (test code = RDW) 17.6 % 11.5-14.5 H MCH (test code = MCH) 29.3 pg 26.0-32.0 Platelets (test code = 17 x10 140-440 CTRB TRASHA Platelets) K.03/29/2020 09:05:38 CDT/PN MPV (test code = MPV) 9.4 fL 7.5-11.2 Slide Review (test code Smear N = Slide Review) Automated [id number] 09:06:53 Test Item Value Reference Range Interpretation Comments Neutro Auto (test code = Neutro Auto) 57.9 % N Lymph Auto (test code = Lymph Auto) 27.6 % N [place] Auto (test code = [place] Auto) 10.6 % N Eos, Auto (test code = Eos, Auto) 3.1 % N Basophil Auto (test code = Basophil 0.8 % N Auto) Neutro Absolute (test code = Neutro 5.2 x10 2.7-7.3 Absolute) Lymph Absolute (test code = Lymph 2.5 x10 0.8-3.5 Absolute) [place] Absolute (test code = [place] 1.0 x10 0.3-0.9 H Absolute) Eos Absolute (test code = Eos 0.3 x10 0.0-0.3 Absolute) Baso Absolute (test code = Baso 0.1 x10 0.0-0.1 Absolute) XR Abdomen 2 [id number] 09:00:16Patient: JANIS PATTERSON Date/Time03/29/2020 08:22 CDTReason for Exampancreatitis;IleusReportEXAMINATION: KUB: AP upright and supine viewsCOMPARI SON: KUB 03/28/2020CLINICAL INFORMATION: Pancreatitis/abdominal painFINDINGS:No abnormal abdominal calcifications. The soft tissue shadows are normal. The abdominal gas pattern is within normal limits. Osseous structures are grossly intact.IMPRESSION:Nonspecific nonobstructive bowel gas pattern.Final Dictated by: MD Errol, SamerDictated DT/TM: 03/29/2020 8:58 amSigned by: MD Errol, SamerSigned (Electronic Signature): 03/29/2020 9:00 amPOC [id number] 06:10:33 Test Item Value Reference Range Interpretation Comments Glucose POC (test 235 mg/dL 74-106 H POC Glucos e used on code = Glucose POC) critical ly ill patients is considered " off-label use" and has no t been cleared or appr zuly by the FDA. Altern ative testing methods should be considered i f the patient is crit ically ill. Blood [id number] 06:01:42No growth at 5 days.POC [id number] 22:16:26 Test Item Value Reference Range Interpretation Comments Glucose POC (test 212 mg/dL 74-106 H POC Glucos e used on code = Glucose POC) critical ly ill patients is considered " off-label use" and has no t been cleared or appr zuly by the FDA. Altern ative testing methods should be considered i f the patient is crit ically ill. POC [id number] 15:35:25 Test Item Value Reference Range Interpretation Comments Glucose POC (test 167 mg/dL 74-106 H POC Glucos e used on code = Glucose POC) critical ly ill patients is considered " off-label use" and has no t been cleared or appr zuly by the FDA. Altern ative testing methods should be considered i f the patient is crit ically ill. POC [id number] 11:00:02 Test Item Value Reference Range Interpretation Comments Glucose POC (test 159 mg/dL 74-106 H POC Glucos e used on code = Glucose POC) critical ly ill patients is considered " off-label use" and has no t been cleared or appr zuly by the FDA. Altern ative testing methods should be considered i f the patient is crit ically ill. XR Abdomen 2 [id number] 09:30:43Patient: JANIS PATTERSON Date/Time03/28/2020 08:55 CDTReason for Exampancreatitis;Abdominal painReportEXAMINATION: KUB: AP upright and supine vie wsCOMPARISON: CT abdomen and pelvis without contrast 03/27/2020CLINICAL INFORMATION: Abdominal pain; PancreatitisFINDINGS:No abnormal abdominal calcifications are seen. The soft tissue shadows are normal. The abdominal gas pattern is within normal limits. Osseous structures are grossly intact.IMPRESSI ON:Nonspecific nonobstructive bowel gas pattern. Final Dictated by: MD Errol, SamerDictated DT/TM: 03/28/2020 9:29 amSigned by: MD Errol, SamerSigned (Electronic Signature): 03/28/2020 9:30 amPOC [id number] 07:05:07 Test Item Value Reference Range Interpretation Comments Glucose POC (test 202 mg/dL 74-106 H POC Glucos e used on code = Glucose POC) critical ly ill patients is considered " off-label use" and has no t been cleared or appr zuly by the FDA. Altern ative testing methods should be considered i f the patient is crit ically ill. [id number] 04:19:33 Test Item Value Reference Range Interpretation Comments RBC Morph (test code = RBC As Indicated Normal A Morph) Anisocyte (test code = 1+ A Anisocyte) Hypochromia (test code = 1+ A Hypochromia) Poik (test code = Poik) 1+ A Schistocytes (test code = 1+ A Schistocytes) Target Cells (test code = 1+ A Target Cells) Differential Comment (test See Comment s lide review code = Differential Comment) Plt Estimation (test code = Decreased Normal A Plt Estimation) POC [id number] 03:59:30 Test Item Value Reference Range Interpretation Comments Glucose POC (test 210 mg/dL 74-106 H POC Glucos e used on code = Glucose POC) critical ly ill patients is considered " off-label use" and has no t been cleared or appr zuly by the FDA. Altern ative testing methods should be considered i f the patient is crit ically ill. Comprehensive Metabolic [id number] 03:56:15 Test Item Value Reference Range Interpretation Comments Sodium Level (test code = 139 mmol/L 136-145 Sodium Level) Potassium Level (test code = 3.4 mmol/L 3.5-5.1 L Potassium Level) Chloride Level (test code = 101 mmol/L 98-107 Chloride Level) CO2 (test code = CO2) 31 mmol/L 21-32 Anion Gap (test code = Anion 7 mmol/L 7-16 Gap) BUN (test code = BUN) 19 mg/dL 7-18 H Creatinine Level (test code = 1.2 mg/dL 0.6-1.0 H Creatinine Level) Glucose Level (test code = 197 mg/dL 74-106 H Glucose Level) Calcium Level (test code = 8.3 mg/dL 8.5-10.1 L Calcium Level) Alk Phos (test code = Alk 146 IntlUnit/L 50-136 H Phos) Bilirubin Total (test code = 2.8 mg/dL 0.2-1.0 H Bilirubin Total) Albumin Level (test code = 1.9 g/dL 3.4-5.0 L Albumin Level) Protein Total (test code = 7.3 g/dL 6.4-8.2 Protein Total) ALT (test code = ALT) 11 IntlUnit/L 12-78 L AST (test code = AST) 42 IntlUnit/L 15-37 H Lipase [id number] 03:56:15 Test Item Value Reference Range Interpretation Comments Lipase Level (test code = 626 IntlUnit/L 73-393 H Lipase Level) Comprehensive Metabolic [id number] 03:56:15 Test Item Value Reference Range Interpretation Comments Sodium Level (test code = 139 mmol/L 136-145 Sodium Level) Potassium Level (test code 3.4 mmol/L 3.5-5.1 L = Potassium Level) Chloride Level (test code = 101 mmol/L 98-107 Chloride Level) CO2 (test code = CO2) 31 mmol/L 21-32 Anion Gap (test code = 7 mmol/L 7-16 Anion Gap) BUN (test code = BUN) 19 mg/dL 7-18 H Creatinine Level (test code 1.2 mg/dL 0.6-1.0 H = Creatinine Level) Glucose Level (test code = 197 mg/dL 74-106 H Glucose Level) Calcium Level (test code = 8.3 mg/dL 8.5-10.1 L Calcium Level) Alk Phos (test code = Alk 146 IntlUnit/L 50-136 H Phos) Bilirubin Total (test code 2.8 mg/dL 0.2-1.0 H = Bilirubin Total) Albumin Level (test code = 1.9 g/dL 3.4-5.0 L Albumin Level) Protein Total (test code = 7.3 g/dL 6.4-8.2 Protein Total) ALT (test code = ALT) 11 IntlUnit/L 12-78 L AST (test code = AST) 42 IntlUnit/L 15-37 H eGFR AA (test code = eGFR 56 mL/min/1.73 m2 N AA) Magnesium [id number] 03:56:15 Test Item Value Reference Range Interpretation Comments Magnesium Level (test code = 1.3 mg/dL 1.6-2.6 L Magnesium Level) Comprehensive Metabolic [id number] 03:56:15 Test Item Value Reference Range Interpretation Comments Sodium Level (test code = 139 mmol/L 136-145 Sodium Level) Potassium Level (test code 3.4 mmol/L 3.5-5.1 L = Potassium Level) Chloride Level (test code = 101 mmol/L 98-107 Chloride Level) CO2 (test code = CO2) 31 mmol/L 21-32 Anion Gap (test code = 7 mmol/L 7-16 Anion Gap) BUN (test code = BUN) 19 mg/dL 7-18 H Creatinine Level (test code 1.2 mg/dL 0.6-1.0 H = Creatinine Level) Glucose Level (test code = 197 mg/dL 74-106 H Glucose Level) Calcium Level (test code = 8.3 mg/dL 8.5-10.1 L Calcium Level) Alk Phos (test code = Alk 146 IntlUnit/L 50-136 H Phos) Bilirubin Total (test code 2.8 mg/dL 0.2-1.0 H = Bilirubin Total) Albumin Level (test code = 1.9 g/dL 3.4-5.0 L Albumin Level) Protein Total (test code = 7.3 g/dL 6.4-8.2 Protein Total) ALT (test code = ALT) 11 IntlUnit/L 12-78 L AST (test code = AST) 42 IntlUnit/L 15-37 H eGFR AA (test code = eGFR 56 mL/min/1.73 m2 N AA) eGFR Non-AA (test code = 46 mL/min/1.73 m2 N eGFR Non-AA) Prothrombin Time and [id number] 03:49:01 Test Item Value Reference Range Interpretation Comments Prothrombin Time (test code = 17.1 seconds 9.2-12.0 H Prothrombin Time) INR (test code = INR) 1.7 ratio 0.9-1.2 H Partial Thromboplastin [id number] 03:49:01 Test Item Value Reference Range Interpretation Comments Partial Thromboplastin 48.4 seconds 24.0-35.0 H APTT Heparin Time (test code = Therapeuti c Range: Partial Thromboplastin 47.9- 80.4 seconds Time) Complete Blood Count with [id number] 03:44:12 Test Item Value Reference Range Interpretation Comments WBC (test code = WBC) 11.3 x10 4.8-10.8 H RBC (test code = RBC) 2.97 x10 4.20-5.50 L Hgb (test code = Hgb) 8.6 g/dL 12.0-16.0 L MCV (test code = MCV) 85.5 fL 80.0-95.0 Hct (test code = Hct) 25.4 % 35.0-47.0 L MCHC (test code = MCHC) 34.1 g/dL 31.0-36.0 RDW (test code = RDW) 16.9 % 11.5-14.5 H MCH (test code = MCH) 29.1 pg 26.0-32.0 Platelets (test code = 37 x10 140-440 ctrb/ nel estinoza Platelets) / rn / li 2019 03:44:08 CDT MPV (test code = MPV) 7.7 fL 7.5-11.2 Slide Review (test code Smear N = Slide Review) Automated [id number] 03:44:12 Test Item Value Reference Range Interpretation Comments Neutro Auto (test code = Neutro Auto) 64.6 % N Lymph Auto (test code = Lymph Auto) 21.7 % N [place] Auto (test code = [place] Auto) 10.0 % N Eos, Auto (test code = Eos, Auto) 2.8 % N Basophil Auto (test code = Basophil 0.9 % N Auto) Neutro Absolute (test code = Neutro 7.3 x10 2.7-7.3 Absolute) Lymph Absolute (test code = Lymph 2.4 x10 0.8-3.5 Absolute) [place] Absolute (test code = [place] 1.1 x10 0.3-0.9 H Absolute) Eos Absolute (test code = Eos 0.3 x10 0.0-0.3 Absolute) Baso Absolute (test code = Baso 0.1 x10 0.0-0.1 Absolute) POC [id number] 00:10:36 Test Item Value Reference Range Interpretation Comments Glucose POC (test 196 mg/dL 74-106 H POC Glucos e used on code = Glucose POC) critical ly ill patients is considered " off-label use" and has no t been cleared or appr zuly by the FDA. Altern ative testing methods should be considered i f the patient is crit ically ill. Actin (Smooth Muscle) Antibody [id number] 17:12:1911 Negative 0 - 19 Weak positive 20 - 30 Moderate to strong positive >30 Actin Antibodies are found in 52-85% of patients with autoimmune hepatitis or chronic active hepatitis and in 22% of patients with primary biliary cirrhosis.Performed At: [facility] [id number] MD Ph:[phone] (M2) Antibody [id number] 17:12:19<20.0 Negative 0.0 - 20.0 Equivocal 20.1 - 24.9 Positive >24.9 Mitochondrial (M2) Antibodies are found in 90-96% ofpatients with primary biliary cirrhosis.Performed At: [facility] [id number] Sanjai MD Ph:[phone] Abdomen and Pelvis w/o Contrast 2020-03-27 16:09:24Patient: JANIS PATTERSON Date/Time03/27/2020 15:45 CDTReason for ExamNauseaReportCT abdomen and pelvis without contrastHISTORY: Abdominal painCOMPARISON: 03/11/2020TECHNIQUE: Helical noncontrast tomographic imaging obtained through the abdomen and pelvis. Dose reduction technique performed per ALARA.FINDINGS: Motion related artifact present. Atelectatic opacities suspected within the included lung bases. Heart appears unremarkable. Enteric suction tube extends into the distal stomach/gastroduodenal junction. Interval appendectomy changes identified. Small fluid suspected in the dependent pelvis. No definite abscess or free air identified. No bowel obstruction. Colonic diverticulosis noted. Liver, gallbladder, pancreas, spleen, adrenal glands, and kidneys appear unchanged. Right-sided extrarenal pelvis again noted. Urinary bladder is decompressed via Stout catheter. Anteverted uterus present. No adnexal mass. Atherosclerotic changes identified with small nonspecific retroperitoneal lymph nodes. Operative changes of the ventral abdominal wall suspected. No fracture.IMPRESSION:1. Interval appendectomy changes without evidence of bowel obstruction.2. Small free pelvic fluid suspected without definite abscess or free air.3. No bowel obstruction.4. Colonic diverticulosis. Final Dictated by: MD Ramiro, Jesúsctalexandra DT/TM: 03/27/2020 4:02 pmSigned by: MD Ramiro, Heather (Electronic Signature): 03/27/2020 4:09 pm Prothrombin Time and [id number] 13:27:24 Test Item Value Reference Range Interpretation Comments Prothrombin Time (test code = 16.7 seconds 9.2-12.0 H Prothrombin Time) INR (test code = INR) 1.6 ratio 0.9-1.2 H [id number] 13:26:22 Test Item Value Reference Range Interpretation Comments RBC Morph (test code = RBC As Indicated Normal A Morph) Anisocyte (test code = 1+ A Anisocyte) Hypochromia (test code = 2+ A Hypochromia) Poik (test code = Poik) 1+ A Schistocytes (test code = 1+ A Schistocytes) Plt Estimation (test code = Plt Decreased Normal A Estimation) Complete Blood Count with [id number] 13:24:14 Test Item Value Reference Range Interpretation Comments WBC (test code = WBC) 11.5 x10 4.8-10.8 H RBC (test code = RBC) 3.23 x10 4.20-5.50 L Hgb (test code = Hgb) 9.4 g/dL 12.0-16.0 L MCV (test code = MCV) 86.4 fL 80.0-95.0 Hct (test code = Hct) 27.9 % 35.0-47.0 L MCHC (test code = MCHC) 33.5 g/dL 31.0-36.0 RDW (test code = RDW) 16.8 % 11.5-14.5 H MCH (test code = MCH) 29.0 pg 26.0-32.0 Platelets (test code = Platelets) 48 x10 140-440 L MPV (test code = MPV) 7.6 fL 7.5-11.2 Slide Review (test code = Slide Smear N Review) POC [id number] 12:54:28 Test Item Value Reference Range Interpretation Comments Glucose POC (test 204 mg/dL 74-106 H POC Glucos e used on code = Glucose POC) critical ly ill patients is considered " off-label use" and has no t been cleared or appr zuly by the FDA. Altern ative testing methods should be considered i f the patient is crit ically ill. Automated [id number] 12:39:37 Test Item Value Reference Range Interpretation Comments Neutro Auto (test code = Neutro Auto) 68.3 % N Lymph Auto (test code = Lymph Auto) 18.8 % N [place] Auto (test code = [place] Auto) 9.9 % N Eos, Auto (test code = Eos, Auto) 2.5 % N Basophil Auto (test code = Basophil 0.5 % N Auto) Neutro Absolute (test code = Neutro 7.9 x10 2.7-7.3 H Absolute) Lymph Absolute (test code = Lymph 2.2 x10 0.8-3.5 Absolute) [place] Absolute (test code = [place] 1.1 x10 0.3-0.9 H Absolute) Eos Absolute (test code = Eos 0.3 x10 0.0-0.3 Absolute) Baso Absolute (test code = Baso 0.1 x10 0.0-0.1 Absolute) Comprehensive Metabolic [id number] 12:34:10 Test Item Value Reference Range Interpretation Comments Sodium Level (test code = 137 mmol/L 136-145 Sodium Level) Potassium Level (test code = 3.8 mmol/L 3.5-5.1 Potassium Level) Chloride Level (test code = 99 mmol/L 98-107 Chloride Level) CO2 (test code = CO2) 31 mmol/L 21-32 Anion Gap (test code = Anion 7 mmol/L 7-16 Gap) BUN (test code = BUN) 21 mg/dL 7-18 H Creatinine Level (test code = 1.2 mg/dL 0.6-1.0 H Creatinine Level) Glucose Level (test code = 224 mg/dL 74-106 H Glucose Level) Calcium Level (test code = 8.5 mg/dL 8.5-10.1 Calcium Level) Alk Phos (test code = Alk 152 IntlUnit/L 50-136 H Phos) Bilirubin Total (test code = 2.7 mg/dL 0.2-1.0 H Bilirubin Total) Albumin Level (test code = 1.9 g/dL 3.4-5.0 L Albumin Level) Protein Total (test code = 7.6 g/dL 6.4-8.2 Protein Total) ALT (test code = ALT) 12 IntlUnit/L 12-78 AST (test code = AST) 42 IntlUnit/L 15-37 H Comprehensive Metabolic [id number] 12:34:10 Test Item Value Reference Range Interpretation Comments Sodium Level (test code = 137 mmol/L 136-145 Sodium Level) Potassium Level (test code 3.8 mmol/L 3.5-5.1 = Potassium Level) Chloride Level (test code = 99 mmol/L 98-107 Chloride Level) CO2 (test code = CO2) 31 mmol/L 21-32 Anion Gap (test code = 7 mmol/L 7-16 Anion Gap) BUN (test code = BUN) 21 mg/dL 7-18 H Creatinine Level (test code 1.2 mg/dL 0.6-1.0 H = Creatinine Level) Glucose Level (test code = 224 mg/dL 74-106 H Glucose Level) Calcium Level (test code = 8.5 mg/dL 8.5-10.1 Calcium Level) Alk Phos (test code = Alk 152 IntlUnit/L 50-136 H Phos) Bilirubin Total (test code 2.7 mg/dL 0.2-1.0 H = Bilirubin Total) Albumin Level (test code = 1.9 g/dL 3.4-5.0 L Albumin Level) Protein Total (test code = 7.6 g/dL 6.4-8.2 Protein Total) ALT (test code = ALT) 12 IntlUnit/L 12-78 AST (test code = AST) 42 IntlUnit/L 15-37 H eGFR AA (test code = eGFR 56 mL/min/1.73 m2 N AA) Lipase [id number] 12:34:10 Test Item Value Reference Range Interpretation Comments Lipase Level (test code = 763 IntlUnit/L 73-393 H Lipase Level) Comprehensive Metabolic [id number] 12:34:10 Test Item Value Reference Range Interpretation Comments Sodium Level (test code = 137 mmol/L 136-145 Sodium Level) Potassium Level (test code 3.8 mmol/L 3.5-5.1 = Potassium Level) Chloride Level (test code = 99 mmol/L 98-107 Chloride Level) CO2 (test code = CO2) 31 mmol/L 21-32 Anion Gap (test code = 7 mmol/L 7-16 Anion Gap) BUN (test code = BUN) 21 mg/dL 7-18 H Creatinine Level (test code 1.2 mg/dL 0.6-1.0 H = Creatinine Level) Glucose Level (test code = 224 mg/dL 74-106 H Glucose Level) Calcium Level (test code = 8.5 mg/dL 8.5-10.1 Calcium Level) Alk Phos (test code = Alk 152 IntlUnit/L 50-136 H Phos) Bilirubin Total (test code 2.7 mg/dL 0.2-1.0 H = Bilirubin Total) Albumin Level (test code = 1.9 g/dL 3.4-5.0 L Albumin Level) Protein Total (test code = 7.6 g/dL 6.4-8.2 Protein Total) ALT (test code = ALT) 12 IntlUnit/L 12-78 AST (test code = AST) 42 IntlUnit/L 15-37 H eGFR AA (test code = eGFR 56 mL/min/1.73 m2 N AA) eGFR Non-AA (test code = 46 mL/min/1.73 m2 N eGFR Non-AA) [id number] 12:34:09 Test Item Value Reference Range Interpretation Comments Amylase Level (test code = 122 IntlUnit/L 25-115 H Amylase Level) Basic Metabolic [id number] 07:47:13 Test Item Value Reference Range Interpretation Comments Sodium Level (test code = Sodium 137 mmol/L 136-145 Level) Potassium Level (test code = 3.9 mmol/L 3.5-5.1 Potassium Level) Chloride Level (test code = 100 mmol/L 98-107 Chloride Level) CO2 (test code = CO2) 32 mmol/L 21-32 Anion Gap (test code = Anion Gap) 5 mmol/L 7-16 L BUN (test code = BUN) 20 mg/dL 7-18 H Creatinine Level (test code = 1.1 mg/dL 0.6-1.0 H Creatinine Level) Glucose Level (test code = Glucose 207 mg/dL 74-106 H Level) Calcium Level (test code = Calcium 8.5 mg/dL 8.5-10.1 Level) Basic Metabolic [id number] 07:47:13 Test Item Value Reference Range Interpretation Comments Sodium Level (test code = 137 mmol/L 136-145 Sodium Level) Potassium Level (test code 3.9 mmol/L 3.5-5.1 = Potassium Level) Chloride Level (test code 100 mmol/L 98-107 = Chloride Level) CO2 (test code = CO2) 32 mmol/L 21-32 Anion Gap (test code = 5 mmol/L 7-16 L Anion Gap) BUN (test code = BUN) 20 mg/dL 7-18 H Creatinine Level (test 1.1 mg/dL 0.6-1.0 H code = Creatinine Level) Glucose Level (test code = 207 mg/dL 74-106 H Glucose Level) Calcium Level (test code = 8.5 mg/dL 8.5-10.1 Calcium Level) eGFR AA (test code = eGFR >60 mL/min/1.73 m2 N AA) eGFR Non-AA (test code = 51 mL/min/1.73 m2 N eGFR Non-AA) Basic Metabolic [id number] 07:47:13 Test Item Value Reference Range Interpretation Comments Sodium Level (test code = 137 mmol/L 136-145 Sodium Level) Potassium Level (test code 3.9 mmol/L 3.5-5.1 = Potassium Level) Chloride Level (test code 100 mmol/L 98-107 = Chloride Level) CO2 (test code = CO2) 32 mmol/L 21-32 Anion Gap (test code = 5 mmol/L 7-16 L Anion Gap) BUN (test code = BUN) 20 mg/dL 7-18 H Creatinine Level (test 1.1 mg/dL 0.6-1.0 H code = Creatinine Level) Glucose Level (test code = 207 mg/dL 74-106 H Glucose Level) Calcium Level (test code = 8.5 mg/dL 8.5-10.1 Calcium Level) eGFR AA (test code = eGFR >60 mL/min/1.73 m2 N AA) eGFR Non-AA (test code = 51 mL/min/1.73 m2 N eGFR Non-AA) POC [id number] 06:48:16 Test Item Value Reference Range Interpretation Comments Glucose POC (test 212 mg/dL 74-106 H POC Glucos e used on code = Glucose POC) critical ly ill patients is considered " off-label use" and has no t been cleared or appr zuly by the FDA. Altern ative testing methods should be considered i f the patient is crit ically ill. POC [id number] 20:59:44 Test Item Value Reference Range Interpretation Comments Glucose POC (test 197 mg/dL 74-106 H POC Glucos e used on code = Glucose POC) critical ly ill patients is considered " off-label use" and has no t been cleared or appr zuly by the FDA. Altern ative testing methods should be considered i f the patient is crit ically ill. POC [id number] 17:11:26 Test Item Value Reference Range Interpretation Comments Glucose POC (test 204 mg/dL 74-106 H POC Glucos e used on code = Glucose POC) critical ly ill patients is considered " off-label use" and has no t been cleared or appr zuly by the FDA. Altern ative testing methods should be considered i f the patient is crit ically ill. Lipase [id number] 17:02:10 Test Item Value Reference Range Interpretation Comments Lipase Level (test code = 829 IntlUnit/L 73-393 H Lipase Level) Comprehensive Metabolic [id number] 17:02:09 Test Item Value Reference Range Interpretation Comments Sodium Level (test code = 136 mmol/L 136-145 Sodium Level) Potassium Level (test code = 5.4 mmol/L 3.5-5.1 H Potassium Level) Chloride Level (test code = 102 mmol/L 98-107 Chloride Level) CO2 (test code = CO2) 30 mmol/L 21-32 Anion Gap (test code = Anion 4 mmol/L 7-16 L Gap) BUN (test code = BUN) 23 mg/dL 7-18 H Creatinine Level (test code = 1.2 mg/dL 0.6-1.0 H Creatinine Level) Glucose Level (test code = 196 mg/dL 74-106 H Glucose Level) Calcium Level (test code = 8.5 mg/dL 8.5-10.1 Calcium Level) Alk Phos (test code = Alk 146 IntlUnit/L 50-136 H Phos) Bilirubin Total (test code = 2.5 mg/dL 0.2-1.0 H Bilirubin Total) Albumin Level (test code = 1.9 g/dL 3.4-5.0 L Albumin Level) Protein Total (test code = 7.6 g/dL 6.4-8.2 Protein Total) ALT (test code = ALT) 10 IntlUnit/L 12-78 L AST (test code = AST) 52 IntlUnit/L 15-37 H Comprehensive Metabolic [id number] 17:02:09 Test Item Value Reference Range Interpretation Comments Sodium Level (test code = 136 mmol/L 136-145 Sodium Level) Potassium Level (test code 5.4 mmol/L 3.5-5.1 H = Potassium Level) Chloride Level (test code = 102 mmol/L 98-107 Chloride Level) CO2 (test code = CO2) 30 mmol/L 21-32 Anion Gap (test code = 4 mmol/L 7-16 L Anion Gap) BUN (test code = BUN) 23 mg/dL 7-18 H Creatinine Level (test code 1.2 mg/dL 0.6-1.0 H = Creatinine Level) Glucose Level (test code = 196 mg/dL 74-106 H Glucose Level) Calcium Level (test code = 8.5 mg/dL 8.5-10.1 Calcium Level) Alk Phos (test code = Alk 146 IntlUnit/L 50-136 H Phos) Bilirubin Total (test code 2.5 mg/dL 0.2-1.0 H = Bilirubin Total) Albumin Level (test code = 1.9 g/dL 3.4-5.0 L Albumin Level) Protein Total (test code = 7.6 g/dL 6.4-8.2 Protein Total) ALT (test code = ALT) 10 IntlUnit/L 12-78 L AST (test code = AST) 52 IntlUnit/L 15-37 H eGFR AA (test code = eGFR 56 mL/min/1.73 m2 N AA) Comprehensive Metabolic [id number] 17:02:09 Test Item Value Reference Range Interpretation Comments Sodium Level (test code = 136 mmol/L 136-145 Sodium Level) Potassium Level (test code 5.4 mmol/L 3.5-5.1 H = Potassium Level) Chloride Level (test code = 102 mmol/L 98-107 Chloride Level) CO2 (test code = CO2) 30 mmol/L 21-32 Anion Gap (test code = 4 mmol/L 7-16 L Anion Gap) BUN (test code = BUN) 23 mg/dL 7-18 H Creatinine Level (test code 1.2 mg/dL 0.6-1.0 H = Creatinine Level) Glucose Level (test code = 196 mg/dL 74-106 H Glucose Level) Calcium Level (test code = 8.5 mg/dL 8.5-10.1 Calcium Level) Alk Phos (test code = Alk 146 IntlUnit/L 50-136 H Phos) Bilirubin Total (test code 2.5 mg/dL 0.2-1.0 H = Bilirubin Total) Albumin Level (test code = 1.9 g/dL 3.4-5.0 L Albumin Level) Protein Total (test code = 7.6 g/dL 6.4-8.2 Protein Total) ALT (test code = ALT) 10 IntlUnit/L 12-78 L AST (test code = AST) 52 IntlUnit/L 15-37 H eGFR AA (test code = eGFR 56 mL/min/1.73 m2 N AA) eGFR Non-AA (test code = 46 mL/min/1.73 m2 N eGFR Non-AA) [id number] 16:32:33 Test Item Value Reference Range Interpretation Comments RBC Morph (test code = RBC As Indicated Normal A Morph) Anisocyte (test code = 1+ A Anisocyte) Hypochromia (test code = 2+ A Hypochromia) Poik (test code = Poik) 1+ A Acanthocyte (test code = 1+ A Acanthocyte) Elliptocyte (test code = 1+ A Elliptocyte) Schistocytes (test code = 1+ A Schistocytes) Target Cells (test code = 1+ A Target Cells) Differential Comment (test See Comment S lide reviewed code = Differential Comment) Plt Estimation (test code Decreased Normal A = Plt Estimation) Stomatocytes (test code = 1+ A Stomatocytes) Automated [id number] 16:16:43 Test Item Value Reference Range Interpretation Comments Neutro Auto (test code = Neutro Auto) 67.2 % N Lymph Auto (test code = Lymph Auto) 19.2 % N [place] Auto (test code = [place] Auto) 10.1 % N Eos, Auto (test code = Eos, Auto) 2.4 % N Basophil Auto (test code = Basophil 1.1 % N Auto) Neutro Absolute (test code = Neutro 8.7 x10 2.7-7.3 H Absolute) Lymph Absolute (test code = Lymph 2.5 x10 0.8-3.5 Absolute) [place] Absolute (test code = [place] 1.3 x10 0.3-0.9 H Absolute) Eos Absolute (test code = Eos 0.3 x10 0.0-0.3 Absolute) Baso Absolute (test code = Baso 0.1 x10 0.0-0.1 Absolute) Complete Blood Count with [id number] 16:16:42 Test Item Value Reference Range Interpretation Comments WBC (test code = WBC) 13.0 x10 4.8-10.8 H RBC (test code = RBC) 3.10 x10 4.20-5.50 L Hgb (test code = Hgb) 9.1 g/dL 12.0-16.0 L MCV (test code = MCV) 86.5 fL 80.0-95.0 Hct (test code = Hct) 26.8 % 35.0-47.0 L RDW (test code = RDW) 17.0 % 11.5-14.5 H MCHC (test code = MCHC) 33.8 g/dL 31.0-36.0 MCH (test code = MCH) 29.2 pg 26.0-32.0 Platelets (test code = Platelets) 67 x10 140-440 L MPV (test code = MPV) 8.7 fL 7.5-11.2 Slide Review (test code = Slide Smear N Review) POC [id number] 12:16:31 Test Item Value Reference Range Interpretation Comments Glucose POC (test 244 mg/dL 74-106 H POC Glucos e used on code = Glucose POC) critical ly ill patients is considered " off-label use" and has no t been cleared or appr zuly by the FDA. Altern ative testing methods should be considered i f the patient is crit ically ill. Copper, Serum [id number] 10:08:67696Blrh test was developed and its performance characteristicsdetermined by [facility]. It has not beencleared orapproved by the Food and Drug Administration. Detection Limit = 5Performed At: [facility] [id number] [place], [place] [id number] Sanjai MD Ph:[phone] [id number] 05:04:23 Test Item Value Reference Range Interpretation Comments Glucose POC (test 264 mg/dL 74-106 H POC Glucos e used on code = Glucose POC) critical ly ill patients is considered " off-label use" and has no t been cleared or appr zuly by the FDA. Altern ative testing methods should be considered i f the patient is crit ically ill. POC [id number] 04:53:58 Test Item Value Reference Range Interpretation Comments Glucose POC (test 246 mg/dL 74-106 H POC Glucos e used on code = Glucose POC) critical ly ill patients is considered " off-label use" and has no t been cleared or appr zuly by the FDA. Altern ative testing methods should be considered i f the patient is crit ically ill. POC [id number] 00:33:02 Test Item Value Reference Range Interpretation Comments Glucose POC (test 293 mg/dL 74-106 H POC Glucos e used on code = Glucose POC) critical ly ill patients is considered " off-label use" and has no t been cleared or appr zuly by the FDA. Altern ative testing methods should be considered i f the patient is crit ically ill. XR Abdomen KUB 1 [id number] 13:53:33Patient: JANIS PATTERSON Date/Time03/25/202013:45 CDTReason for ExamLine placementReportClinical indication: Nasogastric tube placement and morbid obesityX-ray abdomen KUB one viewThe study is significantly limited given the patient's gross morbid obesity. The recently placed nasogastric tube is noted with its tip in the region of the gastric antrum. The intestinal gas pattern is grossly nonspecific.IMPRESSION:1. Nasogastric tube tip within the area of the stomach. See above. Final Dictated by: MD Franco Gustavo MDictated DT/TM: 03/25/2020 1:51 pmSigned by: MD Franco Gustavo MSigned (Electronic Signature): 03/25/2020 1:53 pmPOC [id number] 11:27:11 Test Item Value Reference Range Interpretation Comments Glucose POC (test 272 mg/dL 74-106 H POC Glucos e used on code = Glucose POC) critical ly ill patients is considered " off-label use" and has no t been cleared or appr zuly by the FDA. Altern ative testing methods should be considered i f the patient is crit ically ill. POC [id number] 05:14:19 Test Item Value Reference Range Interpretation Comments Glucose POC (test 289 mg/dL 74-106 H POC Glucos e used on code = Glucose POC) critical ly ill patients is considered " off-label use" and has no t been cleared or appr zuly by the FDA. Altern ative testing methods should be considered i f the patient is crit ically ill. POC [id number] 23:12:01 Test Item Value Reference Range Interpretation Comments Glucose POC (test 256 mg/dL 74-106 H POC Glucos e used on code = Glucose POC) critical ly ill patients is considered " off-label use" and has no t been cleared or appr zuly by the FDA. Altern ative testing methods should be considered i f the patient is crit ically ill. POC [id number] 16:43:04 Test Item Value Reference Range Interpretation Comments Glucose POC (test 288 mg/dL 74-106 H POC Glucos e used on code = Glucose POC) critical ly ill patients is considered " off-label use" and has no t been cleared or appr zuly by the FDA. Altern ative testing methods should be considered i f the patient is crit ically ill. POC [id number] 12:07:38 Test Item Value Reference Range Interpretation Comments Glucose POC (test 279 mg/dL 74-106 H POC Glucos e used on code = Glucose POC) critical ly ill patients is considered " off-label use" and has no t been cleared or appr zuly by the FDA. Altern ative testing methods should be considered i f the patient is crit ically ill. POC [id number] 12:07:35 Test Item Value Reference Range Interpretation Comments Glucose POC (test 264 mg/dL 74-106 H POC Glucos e used on code = Glucose POC) critical ly ill patients is considered " off-label use" and has no t been cleared or appr zuly by the FDA. Altern ative testing methods should be considered i f the patient is crit ically ill. POC [id number] 12:07:33 Test Item Value Reference Range Interpretation Comments Glucose POC (test 255 mg/dL 74-106 H POC Glucos e used on code = Glucose POC) critical ly ill patients is considered " off-label use" and has no t been cleared or appr zuly by the FDA. Altern ative testing methods should be considered i f the patient is crit ically ill. Basic Metabolic [id number] 07:25:13 Test Item Value Reference Range Interpretation Comments Sodium Level (test code = Sodium 141 mmol/L 136-145 Level) Potassium Level (test code = 4.1 mmol/L 3.5-5.1 Potassium Level) Chloride Level (test code = 107 mmol/L 98-107 Chloride Level) CO2 (test code = CO2) 27 mmol/L 21-32 Anion Gap (test code = Anion Gap) 7 mmol/L 7-16 BUN (test code = BUN) 32 mg/dL 7-18 H Creatinine Level (test code = 1.3 mg/dL 0.6-1.0 H Creatinine Level) Glucose Level (test code = Glucose 264 mg/dL 74-106 H Level) Calcium Level (test code = Calcium 8.7 mg/dL 8.5-10.1 Level) Basic Metabolic [id number] 07:25:13 Test Item Value Reference Range Interpretation Comments Sodium Level (test code = 141 mmol/L 136-145 Sodium Level) Potassium Level (test code 4.1 mmol/L 3.5-5.1 = Potassium Level) Chloride Level (test code = 107 mmol/L 98-107 Chloride Level) CO2 (test code = CO2) 27 mmol/L 21-32 Anion Gap (test code = 7 mmol/L 7-16 Anion Gap) BUN (test code = BUN) 32 mg/dL 7-18 H Creatinine Level (test code 1.3 mg/dL 0.6-1.0 H = Creatinine Level) Glucose Level (test code = 264 mg/dL 74-106 H Glucose Level) Calcium Level (test code = 8.7 mg/dL 8.5-10.1 Calcium Level) eGFR AA (test code = eGFR 51 mL/min/1.73 m2 N AA) eGFR Non-AA (test code = 42 mL/min/1.73 m2 N eGFR Non-AA) Basic Metabolic [id number] 07:25:13 Test Item Value Reference Range Interpretation Comments Sodium Level (test code = 141 mmol/L 136-145 Sodium Level) Potassium Level (test code 4.1 mmol/L 3.5-5.1 = Potassium Level) Chloride Level (test code = 107 mmol/L 98-107 Chloride Level) CO2 (test code = CO2) 27 mmol/L 21-32 Anion Gap (test code = 7 mmol/L 7-16 Anion Gap) BUN (test code = BUN) 32 mg/dL 7-18 H Creatinine Level (test code 1.3 mg/dL 0.6-1.0 H = Creatinine Level) Glucose Level (test code = 264 mg/dL 74-106 H Glucose Level) Calcium Level (test code = 8.7 mg/dL 8.5-10.1 Calcium Level) eGFR AA (test code = eGFR 51 mL/min/1.73 m2 N AA) eGFR Non-AA (test code = 42 mL/min/1.73 m2 N eGFR Non-AA) POC [id number] 18:31:46 Test Item Value Reference Range Interpretation Comments Glucose POC (test 259 mg/dL 74-106 H POC Glucos e used on code = Glucose POC) critical ly ill patients is considered " off-label use" and has no t been cleared or appr zuly by the FDA. Altern ative testing methods should be considered i f the patient is crit ically ill. POC [id number] 16:34:32 Test Item Value Reference Range Interpretation Comments Glucose POC (test 261 mg/dL 74-106 H POC Glucos e used on code = Glucose POC) critical ly ill patients is considered " off-label use" and has no t been cleared or appr zuly by the FDA. Altern ative testing methods should be considered i f the patient is crit ically ill. Jyvsy-7-Tatytotniok, Serum [id number] 15:09:72413Jtebsdxtu At: JENNIFER [facility] [id number] [facility] [address] [place], [place] [id number] CN MD Ph:[phone] Comprehensive Metabolic [id number] 11:29:11 Test Item Value Reference Range Interpretation Comments Sodium Level (test code = 140 mmol/L 136-145 Sodium Level) Potassium Level (test code = 4.1 mmol/L 3.5-5.1 Potassium Level) Chloride Level (test code = 109 mmol/L 98-107 H Chloride Level) CO2 (test code = CO2) 26 mmol/L 21-32 Anion Gap (test code = Anion 5 mmol/L 7-16 L Gap) BUN (test code = BUN) 31 mg/dL 7-18 H Creatinine Level (test code = 1.4 mg/dL 0.6-1.0 H Creatinine Level) Glucose Level (test code = 225 mg/dL 74-106 H Glucose Level) Calcium Level (test code = 8.3 mg/dL 8.5-10.1 L Calcium Level) Alk Phos (test code = Alk 124 IntlUnit/L 50-136 Phos) Bilirubin Total (test code = 1.8 mg/dL 0.2-1.0 H Bilirubin Total) Albumin Level (test code = 1.8 g/dL 3.4-5.0 L Albumin Level) Protein Total (test code = 7.1 g/dL 6.4-8.2 Protein Total) ALT (test code = ALT) 10 IntlUnit/L 12-78 L AST (test code = AST) 31 IntlUnit/L 15-37 Comprehensive Metabolic [id number] 11:29:11 Test Item Value Reference Range Interpretation Comments Sodium Level (test code = 140 mmol/L 136-145 Sodium Level) Potassium Level (test code 4.1 mmol/L 3.5-5.1 = Potassium Level) Chloride Level (test code = 109 mmol/L 98-107 H Chloride Level) CO2 (test code = CO2) 26 mmol/L 21-32 Anion Gap (test code = 5 mmol/L 7-16 L Anion Gap) BUN (test code = BUN) 31 mg/dL 7-18 H Creatinine Level (test code 1.4 mg/dL 0.6-1.0 H = Creatinine Level) Glucose Level (test code = 225 mg/dL 74-106 H Glucose Level) Calcium Level (test code = 8.3 mg/dL 8.5-10.1 L Calcium Level) Alk Phos (test code = Alk 124 IntlUnit/L 50-136 Phos) Bilirubin Total (test code 1.8 mg/dL 0.2-1.0 H = Bilirubin Total) Albumin Level (test code = 1.8 g/dL 3.4-5.0 L Albumin Level) Protein Total (test code = 7.1 g/dL 6.4-8.2 Protein Total) ALT (test code = ALT) 10 IntlUnit/L 12-78 L AST (test code = AST) 31 IntlUnit/L 15-37 eGFR AA (test code = eGFR 47 mL/min/1.73 m2 N AA) Comprehensive Metabolic [id number] 11:29:11 Test Item Value Reference Range Interpretation Comments Sodium Level (test code = 140 mmol/L 136-145 Sodium Level) Potassium Level (test code 4.1 mmol/L 3.5-5.1 = Potassium Level) Chloride Level (test code = 109 mmol/L 98-107 H Chloride Level) CO2 (test code = CO2) 26 mmol/L 21-32 Anion Gap (test code = 5 mmol/L 7-16 L Anion Gap) BUN (test code = BUN) 31 mg/dL 7-18 H Creatinine Level (test code 1.4 mg/dL 0.6-1.0 H = Creatinine Level) Glucose Level (test code = 225 mg/dL 74-106 H Glucose Level) Calcium Level (test code = 8.3 mg/dL 8.5-10.1 L Calcium Level) Alk Phos (test code = Alk 124 IntlUnit/L 50-136 Phos) Bilirubin Total (test code 1.8 mg/dL 0.2-1.0 H = Bilirubin Total) Albumin Level (test code = 1.8 g/dL 3.4-5.0 L Albumin Level) Protein Total (test code = 7.1 g/dL 6.4-8.2 Protein Total) ALT (test code = ALT) 10 IntlUnit/L 12-78 L AST (test code = AST) 31 IntlUnit/L 15-37 eGFR AA (test code = eGFR 47 mL/min/1.73 m2 N AA) eGFR Non-AA (test code = 39 mL/min/1.73 m2 N eGFR Non-AA) Complete Blood Count with [id number] 10:47:41 Test Item Value Reference Range Interpretation Comments WBC (test code = WBC) 15.2 x10 4.8-10.8 H RBC (test code = RBC) 3.27 x10 4.20-5.50 L Hgb (test code = Hgb) 9.6 g/dL 12.0-16.0 L Hct (test code = Hct) 28.3 % 35.0-47.0 L MCV (test code = MCV) 86.8 fL 80.0-95.0 RDW (test code = RDW) 16.1 % 11.5-14.5 H MCHC (test code = MCHC) 33.7 g/dL 31.0-36.0 MCH (test code = MCH) 29.3 pg 26.0-32.0 Platelets (test code = 125 x10 140-440 L Platelets) MPV (test code = MPV) 10.6 fL 7.5-11.2 Slide Review (test code Auto N Resu lt created by = Slide Review) GL_SET_SLIDE _REVIEW_A UTO Automated [id number] 10:47:41 Test Item Value Reference Range Interpretation Comments Neutro Auto (test code = Neutro 74.9 % N Auto) Lymph Auto (test code = Lymph Auto) 14.8 % N [place] Auto (test code = [place] Auto) 7.2 % N Eos, Auto (test code = Eos, Auto) 2.9 % N Basophil Auto (test code = Basophil 0.2 % N Auto) Neutro Absolute (test code = Neutro 11.4 x10 2.7-7.3 H Absolute) Lymph Absolute (test code = Lymph 2.2 x10 0.8-3.5 Absolute) [place] Absolute (test code = [place] 1.1 x10 0.3-0.9 H Absolute) Eos Absolute (test code = Eos 0.4 x10 0.0-0.3 H Absolute) Baso Absolute (test code = Baso 0.0 x10 0.0-0.1 Absolute) Hepatitis Panel (4) [id number] 08:10:18 Test Item Value Reference Range Interpretation Comments Hep A Ab, IgM (test Negative Negative N code = Hep A Ab, IgM) HBsAg Screen (test Negative Negative N code = HBsAg Screen) Hep B Core Ab, IgM Negative Negative N (test code = Hep B Core Ab, IgM) Hep C Virus Ab <0.1 s/co 0.0-0.9 N (test code = Hep C N egative: < Virus Ab) 0.8 Indetermi carmen: 0.8 - 0.9 Po sitive: > 0.9 The CDC recommends that a positive HCV an tibody result be follo wed up with a HCV Nucl eic Acid Amplification t est ([id number]).Perfor med At: [facility] [address] [id number] Zeus Guzman MD Ph:[phone] POC [id number] 07:29:43 Test Item Value Reference Range Interpretation Comments Glucose POC (test 262 mg/dL 74-106 H POC Glucos e used on code = Glucose POC) critical ly ill patients is considered " off-label use" and has no t been cleared or appr zuly by the FDA. Altern ative testing methods should be considered i f the patient is crit ically ill. AFP, Serum, Tumor [id number] 03:12:553.1[employer] Electrochemiluminescence Immunoassay(ECLIA) Values obtained with different assay methods or kits cannotbe used interchangeably. Results cannot be interpreted asabsolute evidence of the presence or absence of malignantdisease. This test is not interpretable in females.Performed At: [facility] [address] [id number] Guzman MD Ph:[phone], Serum, Tumor [id number] 03:12:553.1[employer] Electrochemiluminescence Immunoassay(ECLIA) Values obtained with different assay methods or kits cannotbe used interchangeably. Results cannot be interpreted asabsolute evidence of the presence or absence of malignantdisease. This test is not interpretable in females.Performed At: [facility] [address] [id number] Guzman MD Ph:[phone] [id number] 21:58:00 Test Item Value Reference Range Interpretation Comments Glucose POC (test 239 mg/dL 74-106 H POC Glucos e used on code = Glucose POC) critical ly ill patients is considered " off-label use" and has no t been cleared or appr zuly by the FDA. Altern ative testing methods should be considered i f the patient is crit ically ill. POC [id number] 18:19:59 Test Item Value Reference Range Interpretation Comments Glucose POC (test 228 mg/dL 74-106 H POC Glucos e used on code = Glucose POC) critical ly ill patients is considered " off-label use" and has no t been cleared or appr zuly by the FDA. Altern ative testing methods should be considered i f the patient is crit ically ill. POC [id number] 18:19:58 Test Item Value Reference Range Interpretation Comments Glucose POC (test 230 mg/dL 74-106 H POC Glucos e used on code = Glucose POC) critical ly ill patients is considered " off-label use" and has no t been cleared or appr zuly by the FDA. Altern ative testing methods should be considered i f the patient is crit ically ill. Blood [id number] 18:01:51No growth at 5 days.US Abdomen Complete 2020-03-22 15:20:11Patient: JANIS PATTERSON Date/Time03/22/202014:50 CDTReason for ExamDistention, abdomenReportUltrasound abdomen completeHISTORY: Abdominal distention, pain, emesisCOMPARISON: CT abdomen and pelvis dated 03/11/2020TECHNIQUE: Real-time sonographic images of the abdomen acquired.FINDINGS: Sridhar's lobe of the liver is suspected. Hepatic portal triads are preserved. Gallbladder unremarkable. Common bile duct measures 4 mm. Visualized pancreas unremarkable. Spleen measures 8.6 cm. Right kidney measures 11.4 x 4.6 x 5.3 cm with the left kidney measuring 13.0 x 5.1 x 5.4 cm. Right-sided extrarenal pelvis suspected. Distal abdominal aorta and IVC obscured by overlying bowel gas. No free fluid evident.IMPRESSION: No sonographic evidence of acute intra-abdominal pathology. Final Dictated by: MD Ramiro, Jesúsctated DT/TM: 03/22/2020 3:17 pmSigned by: MD Ramiro, Huagndebby (Electronic Signature): 03/22/2020 3:20 pmRed Blood Cells [id number] 14:12:19 Test Item Value Reference Range Interpretation Comments # of Units (test code = 2 N # of Units) RBC Trn Reason (test High risk, even if N code = RBC Trn Reason) Hgb > 7 RBC Product Ready (test RBC Ready code = RBC Product Ready) [id number] 13:41:19 Test Item Value Reference Range Interpretation Comments Previous History (test code Yes Prev History = Previous History) BBID (test code = BBID) [id number] Methodology (test code = Ortho-Vision(OV) Methodology) Anti-A (test code = Anti-A) 4+ Anti-B (test code = Anti-B) 4+ Anti-D (test code = Anti-D) 4+ DCon (test code = DCon) 0 A1 (test code = A1) 0 B cells (test code = B 0 cells) ABORh (test code = ABORh) AB POS 2C [id number] 13:41:19 Test Item Value Reference Range Interpretation Comments Methodology (test code = Ortho-Vision(OV) Methodology) SC1 (test code = SC1) 0 SC2 (test code = SC2) 0 Antibody Screen (2C) (test Negative ABSC code = Antibody Screen (2C)) XR Abdomen KUB 1 [id number] 13:33:47Patient: JANIS PATTERSON Date/Time03/22/202013:17 CDTReason for ExamAbdominal distentionReportAbdomen single viewHISTORY: Abdominal distentionCOMPARISON: 03/15/2020TECHNIQUE: Supine views providedFINDINGS: Examination limited on the basis of bodyhabitus. Included lung goodrich are clear. Decreasing bowel gas noted. No pathologic calcification. Osseous structures unchanged.IMPRESSION: Nonobstructive bowel gas pattern. Final Dictated by: MD Ramiro, Jesúsctalexandra DT/TM: 03/22/2020 1:31 pmSigned by: MD Ramiro, Huagndebby (Electronic Signature): 03/22/2020 1:33 pmIron [id number] 13:27:16 Test Item Value Reference Range Interpretation Comments Iron (test code = Iron) 23 mcg/dL 50-170 L [id number] 13:27:16 Test Item Value Reference Range Interpretation Comments Ferritin Level (test code = 2407.0 ng/mL 8.0-388.0 H Ferritin Level) Ammonia [id number] 13:10:13 Test Item Value Reference Range Interpretation Comments Ammonia Level (test code = Ammonia 10 mmol/L 19-54 L Level) Prothrombin Time and [id number] 12:53:08 Test Item Value Reference Range Interpretation Comments Prothrombin Time (test code = 14.2 seconds 9.2-12.0 H Prothrombin Time) INR (test code = INR) 1.4 ratio 0.9-1.2 H Partial Thromboplastin [id number] 12:53:08 Test Item Value Reference Range Interpretation Comments Partial Thromboplastin 50.9 seconds 24.0-35.0 H APTT Heparin Time (test code = Therapeuti c Range: Partial Thromboplastin 47.9- 80.4 seconds Time) Automated [id number] 10:07:27 Test Item Value Reference Range Interpretation Comments Neutro Auto (test code = Neutro 77.6 % N Auto) Lymph Auto (test code = Lymph Auto) 12.1 % N [place] Auto (test code = [place] Auto) 7.4 % N Eos, Auto (test code = Eos, Auto) 2.6 % N Basophil Auto (test code = Basophil 0.3 % N Auto) Neutro Absolute (test code = Neutro 13.7 x10 2.7-7.3 H Absolute) Lymph Absolute (test code = Lymph 2.1 x10 0.8-3.5 Absolute) [place] Absolute (test code = [place] 1.3 x10 0.3-0.9 H Absolute) Eos Absolute (test code = Eos 0.5 x10 0.0-0.3 H Absolute) Baso Absolute (test code = Baso 0.1 x10 0.0-0.1 Absolute) Complete Blood Count with [id number] 10:07:26 Test Item Value Reference Range Interpretation Comments WBC (test code = WBC) 17.6 x10 4.8-10.8 H RBC (test code = RBC) 2.72 x10 4.20-5.50 L Hgb (test code = Hgb) 7.9 g/dL 12.0-16.0 WANG JOE 03/22/2020 10:07: 23 CDT Hct (test code = Hct) 23.9 % 35.0-47.0 WANG JOE 03/22/2020 10:07: 23 CDT MCV (test code = MCV) 87.8 fL 80.0-95.0 RDW (test code = RDW) 16.7 % 11.5-14.5 H MCHC (test code = MCHC) 33.1 g/dL 31.0-36.0 MCH (test code = MCH) 29.0 pg 26.0-32.0 Platelets (test code = 124 x10 140-440 L Platelets) MPV (test code = MPV) 10.3 fL 7.5-11.2 Slide Review (test code Auto N Resu lt created by = Slide Review) GL_SET_SLIDE _REVIEW_A UTO POC [id number] 09:42:39 Test Item Value Reference Range Interpretation Comments Glucose POC (test 251 mg/dL 74-106 H POC Glucos e used on code = Glucose POC) critical ly ill patients is considered " off-label use" and has no t been cleared or appr zuly by the FDA. Altern ative testing methods should be considered i f the patient is crit ically ill. Comprehensive Metabolic [id number] 09:41:09 Test Item Value Reference Range Interpretation Comments Sodium Level (test code = 142 mmol/L 136-145 Sodium Level) Potassium Level (test code = 3.8 mmol/L 3.5-5.1 Potassium Level) Chloride Level (test code = 108 mmol/L 98-107 H Chloride Level) CO2 (test code = CO2) 26 mmol/L 21-32 Anion Gap (test code = Anion 8 mmol/L 7-16 Gap) BUN (test code = BUN) 31 mg/dL 7-18 H Creatinine Level (test code = 1.5 mg/dL 0.6-1.0 H Creatinine Level) Glucose Level (test code = 235 mg/dL 74-106 H Glucose Level) Calcium Level (test code = 8.5 mg/dL 8.5-10.1 Calcium Level) Alk Phos (test code = Alk 109 IntlUnit/L 50-136 Phos) Bilirubin Total (test code = 1.3 mg/dL 0.2-1.0 H Bilirubin Total) Albumin Level (test code = 1.8 g/dL 3.4-5.0 L Albumin Level) Protein Total (test code = 6.8 g/dL 6.4-8.2 Protein Total) ALT (test code = ALT) 9 IntlUnit/L 12-78 L AST (test code = AST) 26 IntlUnit/L 15-37 Comprehensive Metabolic [id number] 09:41:09 Test Item Value Reference Range Interpretation Comments Sodium Level (test code = 142 mmol/L 136-145 Sodium Level) Potassium Level (test code 3.8 mmol/L 3.5-5.1 = Potassium Level) Chloride Level (test code = 108 mmol/L 98-107 H Chloride Level) CO2 (test code = CO2) 26 mmol/L 21-32 Anion Gap (test code = 8 mmol/L 7-16 Anion Gap) BUN (test code = BUN) 31 mg/dL 7-18 H Creatinine Level (test code 1.5 mg/dL 0.6-1.0 H = Creatinine Level) Glucose Level (test code = 235 mg/dL 74-106 H Glucose Level) Calcium Level (test code = 8.5 mg/dL 8.5-10.1 Calcium Level) Alk Phos (test code = Alk 109 IntlUnit/L 50-136 Phos) Bilirubin Total (test code 1.3 mg/dL 0.2-1.0 H = Bilirubin Total) Albumin Level (test code = 1.8 g/dL 3.4-5.0 L Albumin Level) Protein Total (test code = 6.8 g/dL 6.4-8.2 Protein Total) ALT (test code = ALT) 9 IntlUnit/L 12-78 L AST (test code = AST) 26 IntlUnit/L 15-37 eGFR AA (test code = eGFR 43 mL/min/1.73 m2 N AA) Comprehensive Metabolic [id number] 09:41:09 Test Item Value Reference Range Interpretation Comments Sodium Level (test code = 142 mmol/L 136-145 Sodium Level) Potassium Level (test code 3.8 mmol/L 3.5-5.1 = Potassium Level) Chloride Level (test code = 108 mmol/L 98-107 H Chloride Level) CO2 (test code = CO2) 26 mmol/L 21-32 Anion Gap (test code = 8 mmol/L 7-16 Anion Gap) BUN (test code = BUN) 31 mg/dL 7-18 H Creatinine Level (test code 1.5 mg/dL 0.6-1.0 H = Creatinine Level) Glucose Level (test code = 235 mg/dL 74-106 H Glucose Level) Calcium Level (test code = 8.5 mg/dL 8.5-10.1 Calcium Level) Alk Phos (test code = Alk 109 IntlUnit/L 50-136 Phos) Bilirubin Total (test code 1.3 mg/dL 0.2-1.0 H = Bilirubin Total) Albumin Level (test code = 1.8 g/dL 3.4-5.0 L Albumin Level) Protein Total (test code = 6.8 g/dL 6.4-8.2 Protein Total) ALT (test code = ALT) 9 IntlUnit/L 12-78 L AST (test code = AST) 26 IntlUnit/L 15-37 eGFR AA (test code = eGFR 43 mL/min/1.73 m2 N AA) eGFR Non-AA (test code = 36 mL/min/1.73 m2 N eGFR Non-AA) POC [id number] 06:29:42 Test Item Value Reference Range Interpretation Comments Glucose POC (test 212 mg/dL 74-106 H POC Glucos e used on code = Glucose POC) critical ly ill patients is considered " off-label use" and has no t been cleared or appr zuly by the FDA. Altern ative testing methods should be considered i f the patient is crit ically ill. POC [id number] 18:28:55 Test Item Value Reference Range Interpretation Comments Glucose POC (test 251 mg/dL 74-106 H POC Glucos e used on code = Glucose POC) critical ly ill patients is considered " off-label use" and has no t been cleared or appr zuly by the FDA. Altern ative testing methods should be considered i f the patient is crit ically ill. Urinalysis with Culture, if [id number] 17:39:47 Test Item Value Reference Range Interpretation Comments UA Color (test code = UA Yellow Yellow Color) UA Appear (test code = Clear Clear UA Appear) UA pH (test code = UA 6.5 pH) UA Spec Grav (test code 1.014 SGU 1.005-1.030 = UA Spec Grav) UA Glucose (test code = 1+ Negative A UA Glucose) UA Bili (test code = UA Negative Negative Bili) UA Ketones (test code = Negative Negative UA Ketones) UA Blood (test code = UA 2+ Negative A Blood) UA Protein (test code = 1+ Negative A UA Protein) UA Urobilinogen (test 1.0 EU/dL >0.2 code = UA Urobilinogen) UA Nitrite (test code = Negative Negative UA Nitrite) UA Leuk Est (test code = Negative Negative UA Leuk Est) UA Micro Ind? (test code Indicated Not Indicated A Re sult created by = UA Micro Ind?) rule GL_SET_UA_MICRO _IND Urinalysis [id number] 17:39:47 Test Item Value Reference Range Interpretation Comments UA WBC (test code = UA WBC) 0-5 /HPF 0-5 UA RBC (test code = UA RBC) 51-100 /HPF 0-4 A UA Bacteria (test code = UA 1+ /HPF Negative A Bacteria) UA Squam Epithelial (test code = 21-73 /LPF 0-20 A UA Squam Epithelial) UA Hyal Cast (test code = UA Hyal 1-6 /LPF 1-6 Cast) XR Chest 1 View [id number] 14:48:59Patient: JANIS PATTERSON Date/Time03/21/202014:30 CDTReason for Examfever, cough;FeverReportChest single viewHISTORY: Fever, coughCOMPARISON: 03/14/2020TECHNIQUE: AP semierect view providedFINDINGS: Heart size remains generous with fullness of the central pulmonary vessels, likely accentuated by shallow inspiratory lung volumes. Asymmetric elevation of the right hemidiaphragm again noted. No new opacity or acute pleural abnormality. Bony thoraxunchanged where visualized.IMPRESSION: No active cardiopulmonary process. Final Dictated by: MD Ramiro, Jesúsctated DT/TM: 03/21/2020 2:47 pmSigned by: MD Ramiro, Huagned (Electronic Signature): 03/21/2020 2:48 pmPOC [id number] 11:48:05 Test Item Value Reference Range Interpretation Comments Glucose POC (test 261 mg/dL 74-106 H POC Glucos e used on code = Glucose POC) critical ly ill patients is considered " off-label use" and has no t been cleared or appr zuly by the FDA. Altern ative testing methods should be considered i f the patient is crit ically ill. Basic Metabolic [id number] 09:58:13 Test Item Value Reference Range Interpretation Comments Sodium Level (test code = Sodium 143 mmol/L 136-145 Level) Potassium Level (test code = 3.9 mmol/L 3.5-5.1 Potassium Level) Chloride Level (test code = 112 mmol/L 98-107 H Chloride Level) CO2 (test code = CO2) 25 mmol/L 21-32 Anion Gap (test code = Anion Gap) 6 mmol/L 7-16 L BUN (test code = BUN) 34 mg/dL 7-18 H Creatinine Level (test code = 1.6 mg/dL 0.6-1.0 H Creatinine Level) Glucose Level (test code = Glucose 272 mg/dL 74-106 H Level) Calcium Level (test code = Calcium 8.1 mg/dL 8.5-10.1 L Level) Basic Metabolic [id number] 09:58:13 Test Item Value Reference Range Interpretation Comments Sodium Level (test code = 143 mmol/L 136-145 Sodium Level) Potassium Level (test code 3.9 mmol/L 3.5-5.1 = Potassium Level) Chloride Level (test code = 112 mmol/L 98-107 H Chloride Level) CO2 (test code = CO2) 25 mmol/L 21-32 Anion Gap (test code = 6 mmol/L 7-16 L Anion Gap) BUN (test code = BUN) 34 mg/dL 7-18 H Creatinine Level (test code 1.6 mg/dL 0.6-1.0 H = Creatinine Level) Glucose Level (test code = 272 mg/dL 74-106 H Glucose Level) Calcium Level (test code = 8.1 mg/dL 8.5-10.1 L Calcium Level) eGFR AA (test code = eGFR 40 mL/min/1.73 m2 N AA) Basic Metabolic [id number] 09:58:13 Test Item Value Reference Range Interpretation Comments Sodium Level (test code = 143 mmol/L 136-145 Sodium Level) Potassium Level (test code 3.9 mmol/L 3.5-5.1 = Potassium Level) Chloride Level (test code = 112 mmol/L 98-107 H Chloride Level) CO2 (test code = CO2) 25 mmol/L 21-32 Anion Gap (test code = 6 mmol/L 7-16 L Anion Gap) BUN (test code = BUN) 34 mg/dL 7-18 H Creatinine Level (test code 1.6 mg/dL 0.6-1.0 H = Creatinine Level) Glucose Level (test code = 272 mg/dL 74-106 H Glucose Level) Calcium Level (test code = 8.1 mg/dL 8.5-10.1 L Calcium Level) eGFR AA (test code = eGFR 40 mL/min/1.73 m2 N AA) eGFR Non-AA (test code = 33 mL/min/1.73 m2 N eGFR Non-AA) Complete Blood Count with [id number] 09:37:12 Test Item Value Reference Range Interpretation Comments WBC (test code = WBC) 16.0 x10 4.8-10.8 H RBC (test code = RBC) 2.85 x10 4.20-5.50 L Hgb (test code = Hgb) 8.2 g/dL 12.0-16.0 L MCV (test code = MCV) 88.2 fL 80.0-95.0 Hct (test code = Hct) 25.2 % 35.0-47.0 L MCHC (test code = MCHC) 32.7 g/dL 31.0-36.0 RDW (test code = RDW) 16.7 % 11.5-14.5 H MCH (test code = MCH) 28.8 pg 26.0-32.0 Platelets (test code = 123 x10 140-440 L Platelets) MPV (test code = MPV) 9.9 fL 7.5-11.2 Slide Review (test code Auto N Resu lt created by = Slide Review) GL_SET_SLIDE _REVIEW_A UTO Automated [id number] 09:37:12 Test Item Value Reference Range Interpretation Comments Neutro Auto (test code = Neutro 70.4 % N Auto) Lymph Auto (test code = Lymph Auto) 18.0 % N [place] Auto (test code = [place] Auto) 8.7 % N Eos, Auto (test code = Eos, Auto) 2.5 % N Basophil Auto (test code = Basophil 0.4 % N Auto) Neutro Absolute (test code = Neutro 11.3 x10 2.7-7.3 H Absolute) Lymph Absolute (test code = Lymph 2.9 x10 0.8-3.5 Absolute) [place] Absolute (test code = [place] 1.4 x10 0.3-0.9 H Absolute) Eos Absolute (test code = Eos 0.4 x10 0.0-0.3 H Absolute) Baso Absolute (test code = Baso 0.1 x10 0.0-0.1 Absolute) POC [id number] 06:40:31 Test Item Value Reference Range Interpretation Comments Glucose POC (test 296 mg/dL 74-106 H POC Glucos e used on code = Glucose POC) critical ly ill patients is considered " off-label use" and has no t been cleared or appr zuly by the FDA. Altern ative testing methods should be considered i f the patient is crit ically ill. POC [id number] 21:40:20 Test Item Value Reference Range Interpretation Comments Glucose POC (test 226 mg/dL 74-106 H POC Glucos e used on code = Glucose POC) critical ly ill patients is considered " off-label use" and has no t been cleared or appr zuly by the FDA. Altern ative testing methods should be considered i f the patient is crit ically ill. POC [id number] 20:05:47 Test Item Value Reference Range Interpretation Comments Glucose POC (test 265 mg/dL 74-106 H POC Glucos e used on code = Glucose POC) critical ly ill patients is considered " off-label use" and has no t been cleared or appr zuly by the FDA. Altern ative testing methods should be considered i f the patient is crit ically ill. POC [id number] 20:05:46 Test Item Value Reference Range Interpretation Comments Glucose POC (test 250 mg/dL 74-106 H POC Glucos e used on code = Glucose POC) critical ly ill patients is considered " off-label use" and has no t been cleared or appr zuly by the FDA. Altern ative testing methods should be considered i f the patient is crit ically ill. POC [id number] 06:00:28 Test Item Value Reference Range Interpretation Comments Glucose POC (test 242 mg/dL 74-106 H POC Glucos e used on code = Glucose POC) critical ly ill patients is considered " off-label use" and has no t been cleared or appr zuly by the FDA. Altern ative testing methods should be considered i f the patient is crit ically ill. POC [id number] 06:00:23 Test Item Value Reference Range Interpretation Comments Glucose POC (test 200 mg/dL 74-106 H POC Glucos e used on code = Glucose POC) critical ly ill patients is considered " off-label use" and has no t been cleared or appr zuly by the FDA. Altern ative testing methods should be considered i f the patient is crit ically ill. POC [id number] 06:00:20 Test Item Value Reference Range Interpretation Comments Glucose POC (test 203 mg/dL 74-106 H POC Glucos e used on code = Glucose POC) critical ly ill patients is considered " off-label use" and has no t been cleared or appr zuly by the FDA. Altern ative testing methods should be considered i f the patient is crit ically ill. POC [id number] 16:06:06 Test Item Value Reference Range Interpretation Comments Glucose POC (test 204 mg/dL 74-106 H POC Glucos e used on code = Glucose POC) critical ly ill patients is considered " off-label use" and has no t been cleared or appr zuly by the FDA. Altern ative testing methods should be considered i f the patient is crit ically ill. CT Brain/Head w/o [id number] 14:51:33Patient: JANIS PATTERSON Date/Time03/19/202014:20 CDTReason for ExamCVA-repeat ct;StrokeReportCT OF THE HEAD:REASON FOR STUDY: Status post fall with recent stroke symptomsRadiation dose reduction technique performed according to ALARA principle.Multiple axial images of the head were obtained without intravenous contrast injection.No intracranial hemorrhage midline shift or mass effect is seen.Low-density areas are present in the right nasal ganglia frontal lobe and anterior parietal lobe consistent with acute to subacute infarcts. Old lacunartype infarcts are noted in the deep white matter and right basal ganglia. No acute hemorrhage midline shift or mass effect is seen. Old left posterior frontal lobe infarct is also noted. There is no mass effect or midline shift. The brainstem and the posterior fossa are normal appearance.. No evidenceof acute hemorrhage.IMPRESSION:Recent multifocal infarcts are again noted involving the right frontal lobe, basal ganglia and anterior parietal lobes with an old left posterior frontal lobe infarct additionally present. No evidence of acute hemorrhage. Final Dictated by: MD Herrera Craig ADictated DT/TM: 03/19/2020 2:44 pmSigned by: MD Herrera Craig ASigned (Electronic Signature): 03/19/2020 2:51 pmRenal Function [id number] 05:30:05 Test Item Value Reference Range Interpretation Comments Sodium Level (test code = Sodium 149 mmol/L 136-145 H Level) Potassium Level (test code = 3.7 mmol/L 3.5-5.1 Potassium Level) Chloride Level (test code = 119 mmol/L 98-107 H Chloride Level) CO2 (test code = CO2) 21 mmol/L 21-32 Anion Gap (test code = Anion Gap) 9 mmol/L 7-16 BUN (test code = BUN) 37 mg/dL 7-18 H Creatinine Level (test code = 2.1 mg/dL 0.6-1.0 H Creatinine Level) Glucose Level (test code = Glucose 207 mg/dL 74-106 H Level) Albumin Level (test code = Albumin 1.8 g/dL 3.4-5.0 L Level) Calcium Level (test code = Calcium 8.2 mg/dL 8.5-10.1 L Level) Phosphorus Level (test code = 2.7 mg/dL 2.5-4.9 Phosphorus Level) Renal Function [id number] 05:30:05 Test Item Value Reference Range Interpretation Comments Sodium Level (test code = 149 mmol/L 136-145 H Sodium Level) Potassium Level (test code 3.7 mmol/L 3.5-5.1 = Potassium Level) Chloride Level (test code = 119 mmol/L 98-107 H Chloride Level) CO2 (test code = CO2) 21 mmol/L 21-32 Anion Gap (test code = 9 mmol/L 7-16 Anion Gap) BUN (test code = BUN) 37 mg/dL 7-18 H Creatinine Level (test code 2.1 mg/dL 0.6-1.0 H = Creatinine Level) eGFR AA (test code = eGFR 29 mL/min/1.73 m2 N AA) Glucose Level (test code = 207 mg/dL 74-106 H Glucose Level) Albumin Level (test code = 1.8 g/dL 3.4-5.0 L Albumin Level) Calcium Level (test code = 8.2 mg/dL 8.5-10.1 L Calcium Level) Phosphorus Level (test code 2.7 mg/dL 2.5-4.9 = Phosphorus Level) Renal Function [id number] 05:30:05 Test Item Value Reference Range Interpretation Comments Sodium Level (test code = 149 mmol/L 136-145 H Sodium Level) Potassium Level (test code 3.7 mmol/L 3.5-5.1 = Potassium Level) Chloride Level (test code = 119 mmol/L 98-107 H Chloride Level) CO2 (test code = CO2) 21 mmol/L 21-32 Anion Gap (test code = 9 mmol/L 7-16 Anion Gap) BUN (test code = BUN) 37 mg/dL 7-18 H Creatinine Level (test code 2.1 mg/dL 0.6-1.0 H = Creatinine Level) eGFR AA (test code = eGFR 29 mL/min/1.73 m2 N AA) eGFR Non-AA (test code = 24 mL/min/1.73 m2 N eGFR Non-AA) Glucose Level (test code = 207 mg/dL 74-106 H Glucose Level) Albumin Level (test code = 1.8 g/dL 3.4-5.0 L Albumin Level) Calcium Level (test code = 8.2 mg/dL 8.5-10.1 L Calcium Level) Phosphorus Level (test code 2.7 mg/dL 2.5-4.9 = Phosphorus Level) Complete Blood Count with [id number] 05:26:56 Test Item Value Reference Range Interpretation Comments WBC (test code = WBC) 13.1 x10 4.8-10.8 H RBC (test code = RBC) 3.40 x10 4.20-5.50 L Hgb (test code = Hgb) 9.8 g/dL 12.0-16.0 L Hct (test code = Hct) 29.9 % 35.0-47.0 L MCV (test code = MCV) 87.8 fL 80.0-95.0 MCHC (test code = MCHC) 32.8 g/dL 31.0-36.0 RDW (test code = RDW) 16.0 % 11.5-14.5 H MCH (test code = MCH) 28.8 pg 26.0-32.0 Platelets (test code = 159 x10 140-440 Platelets) MPV (test code = MPV) 9.1 fL 7.5-11.2 Slide Review (test code Auto N Resu lt created by = Slide Review) GL_SET_SLIDE _REVIEW_A UTO Automated [id number] 05:26:56 Test Item Value Reference Range Interpretation Comments Neutro Auto (test code = Neutro Auto) 67.3 % N Lymph Auto (test code = Lymph Auto) 17.3 % N [place] Auto (test code = [place] Auto) 11.6 % N Eos, Auto (test code = Eos, Auto) 3.5 % N Basophil Auto (test code = Basophil 0.3 % N Auto) Neutro Absolute (test code = Neutro 8.8 x10 2.7-7.3 H Absolute) Lymph Absolute (test code = Lymph 2.3 x10 0.8-3.5 Absolute) [place] Absolute (test code = [place] 1.5 x10 0.3-0.9 H Absolute) Eos Absolute (test code = Eos 0.5 x10 0.0-0.3 H Absolute) Baso Absolute (test code = Baso 0.0 x10 0.0-0.1 Absolute) POC [id number] 23:46:57 Test Item Value Reference Range Interpretation Comments Glucose POC (test 181 mg/dL 74-106 H POC Glucos e used on code = Glucose POC) critical ly ill patients is considered " off-label use" and has no t been cleared or appr zluy by the FDA. Altern ative testing methods should be considered i f the patient is crit ically ill. POC [id number] 16:00:47 Test Item Value Reference Range Interpretation Comments Glucose POC (test 169 mg/dL 74-106 H POC Glucos e used on code = Glucose POC) critical ly ill patients is considered " off-label use" and has no t been cleared or appr zuly by the FDA. Altern ative testing methods should be considered i f the patient is crit ically ill. POC [id number] 11:19:25 Test Item Value Reference Range Interpretation Comments Glucose POC (test 166 mg/dL 74-106 H POC Glucos e used on code = Glucose POC) critical ly ill patients is considered " off-label use" and has no t been cleared or appr zuly by the FDA. Altern ative testing methods should be considered i f the patient is crit ically ill. Phosphorus [id number] 06:13:20 Test Item Value Reference Range Interpretation Comments Phosphorus Level (test code = 3.4 mg/dL 2.5-4.9 Phosphorus Level) Comprehensive Metabolic [id number] 06:13:19 Test Item Value Reference Range Interpretation Comments Sodium Level (test code = 150 mmol/L 136-145 H Sodium Level) Potassium Level (test code 4.2 mmol/L 3.5-5.1 = Potassium Level) Chloride Level (test code = 121 mmol/L 98-107 H Chloride Level) CO2 (test code = CO2) 16 mmol/L 21-32 L Anion Gap (test code = 13 mmol/L 7-16 Anion Gap) BUN (test code = BUN) 42 mg/dL 7-18 H Creatinine Level (test code 2.6 mg/dL 0.6-1.0 H = Creatinine Level) Glucose Level (test code = 133 mg/dL 74-106 H Glucose Level) Calcium Level (test code = 8.7 mg/dL 8.5-10.1 Calcium Level) Alk Phos (test code = Alk 98 IntlUnit/L 50-136 Phos) Bilirubin Total (test code 1.3 mg/dL 0.2-1.0 H = Bilirubin Total) Albumin Level (test code = 2.1 g/dL 3.4-5.0 L Albumin Level) Protein Total (test code = 6.7 g/dL 6.4-8.2 Protein Total) ALT (test code = ALT) 8 IntlUnit/L 12-78 L AST (test code = AST) 22 IntlUnit/L 15-37 eGFR AA (test code = eGFR 23 mL/min/1.73 m2 N AA) Comprehensive Metabolic [id number] 06:13:19 Test Item Value Reference Range Interpretation Comments Sodium Level (test code = 150 mmol/L 136-145 H Sodium Level) Potassium Level (test code 4.2 mmol/L 3.5-5.1 = Potassium Level) Chloride Level (test code = 121 mmol/L 98-107 H Chloride Level) CO2 (test code = CO2) 16 mmol/L 21-32 L Anion Gap (test code = 13 mmol/L 7-16 Anion Gap) BUN (test code = BUN) 42 mg/dL 7-18 H Creatinine Level (test code 2.6 mg/dL 0.6-1.0 H = Creatinine Level) Glucose Level (test code = 133 mg/dL 74-106 H Glucose Level) Calcium Level (test code = 8.7 mg/dL 8.5-10.1 Calcium Level) Alk Phos (test code = Alk 98 IntlUnit/L 50-136 Phos) Bilirubin Total (test code 1.3 mg/dL 0.2-1.0 H = Bilirubin Total) Albumin Level (test code = 2.1 g/dL 3.4-5.0 L Albumin Level) Protein Total (test code = 6.7 g/dL 6.4-8.2 Protein Total) ALT (test code = ALT) 8 IntlUnit/L 12-78 L AST (test code = AST) 22 IntlUnit/L 15-37 eGFR AA (test code = eGFR 23 mL/min/1.73 m2 N AA) eGFR Non-AA (test code = 19 mL/min/1.73 m2 N eGFR Non-AA) Comprehensive Metabolic [id number] 06:13:19 Test Item Value Reference Range Interpretation Comments Sodium Level (test code = 150 mmol/L 136-145 H Sodium Level) Potassium Level (test code 4.2 mmol/L 3.5-5.1 = Potassium Level) Chloride Level (test code = 121 mmol/L 98-107 H Chloride Level) CO2 (test code = CO2) 16 mmol/L 21-32 L Anion Gap (test code = 13 mmol/L 7-16 Anion Gap) BUN (test code = BUN) 42 mg/dL 7-18 H Creatinine Level (test code 2.6 mg/dL 0.6-1.0 H = Creatinine Level) Glucose Level (test code = 133 mg/dL 74-106 H Glucose Level) Calcium Level (test code = 8.7 mg/dL 8.5-10.1 Calcium Level) Alk Phos (test code = Alk 98 IntlUnit/L 50-136 Phos) Bilirubin Total (test code 1.3 mg/dL 0.2-1.0 H = Bilirubin Total) Albumin Level (test code = 2.1 g/dL 3.4-5.0 L Albumin Level) Protein Total (test code = 6.7 g/dL 6.4-8.2 Protein Total) ALT (test code = ALT) 8 IntlUnit/L 12-78 L AST (test code = AST) 22 IntlUnit/L 15-37 eGFR AA (test code = eGFR 23 mL/min/1.73 m2 N AA) eGFR Non-AA (test code = 19 mL/min/1.73 m2 N eGFR Non-AA) POC [id number] 06:01:01 Test Item Value Reference Range Interpretation Comments Glucose POC (test 85 mg/dL 74-106 POC Glucos e used on code = Glucose POC) critical ly ill patients is considered " off-label use" and has no t been cleared or appr zuly by the FDA. Altern ative testing methods should be considered i f the patient is crit ically ill. POC [id number] 05:28:40 Test Item Value Reference Range Interpretation Comments Glucose POC (test 88 mg/dL 74-106 POC Glucos e used on code = Glucose POC) critical ly ill patients is considered " off-label use" and has no t been cleared or appr zuly by the FDA. Altern ative testing methods should be considered i f the patient is crit ically ill. POC [id number] 05:28:39 Test Item Value Reference Range Interpretation Comments Glucose POC (test 103 mg/dL 74-106 POC Glucos e used on code = Glucose POC) critical ly ill patients is considered " off-label use" and has no t been cleared or appr zuly by the FDA. Altern ative testing methods should be considered i f the patient is crit ically ill. Complete Blood Count with [id number] 05:18:17 Test Item Value Reference Range Interpretation Comments WBC (test code = WBC) 13.8 x10 4.8-10.8 H RBC (test code = RBC) 3.21 x10 4.20-5.50 L Hgb (test code = Hgb) 9.5 g/dL 12.0-16.0 L MCV (test code = MCV) 88.8 fL 80.0-95.0 Hct (test code = Hct) 28.5 % 35.0-47.0 L MCHC (test code = MCHC) 33.2 g/dL 31.0-36.0 RDW (test code = RDW) 16.5 % 11.5-14.5 H MCH (test code = MCH) 29.4 pg 26.0-32.0 Platelets (test code = 247 x10 140-440 Platelets) MPV (test code = MPV) 8.9 fL 7.5-11.2 Slide Review (test code Auto N Resu lt created by = Slide Review) GL_SET_SLIDE _REVIEW_A UTO Automated [id number] 05:18:17 Test Item Value Reference Range Interpretation Comments Neutro Auto (test code = Neutro Auto) 65.6 % N Lymph Auto (test code = Lymph Auto) 18.1 % N [place] Auto (test code = [place] Auto) 13.5 % N Eos, Auto (test code = Eos, Auto) 2.4 % N Basophil Auto (test code = Basophil 0.4 % N Auto) Neutro Absolute (test code = Neutro 9.1 x10 2.7-7.3 H Absolute) Lymph Absolute (test code = Lymph 2.5 x10 0.8-3.5 Absolute) [place] Absolute (test code = [place] 1.9 x10 0.3-0.9 H Absolute) Eos Absolute (test code = Eos 0.3 x10 0.0-0.3 Absolute) Baso Absolute (test code = Baso 0.1 x10 0.0-0.1 Absolute) CT Brain/Head w/o [id number] 12:26:51Patient: JANIS PATTERSON Date/Time03/17/202012:10 CDTReason for ExamAltered level of consciousnessReportCT brain without contrastHISTORY: Altered level of consciousnessCOMPARISON: 02/21/2020TECHNIQUE: Helical noncontrast tomographic imaging obtained through the brain. Dose reduction technique performed per ALARA.FINDINGS: Midline is nondisplaced.No hydrocephalus. Left frontal parietal encephalomalacia redemonstrated. Newly developed areas of low- attenuation now present within the right basal ganglia/caudate nucleus and frontoparietal lobe. No mass effect or acute intracranial blood products. Surrounding calvarium is intact. Included paranasalsinuses and mastoid air cells well aerated.IMPRESSION:1. Newly developed areas of low-density right basal ganglia/caudate nucleus and right frontoparietal lobe raising question of multifocal ischemic sequela, possibly subacute.2. No acute intracranial blood products.3. Consider correlation with contrasted MRI for further characterization.Findings related to the nursing staff immediately following interpretation. Final Dictated by: MD Ramiro, Jesúsctalexandra DT/TM: 03/17/2020 12:15 pmSigned by: MD Ramiro, Huagndebby (Electronic Signature): 03/17/2020 12:26 pmManual [id number] 04:05:02 Test Item Value Reference Range Interpretation Comments Segs Man (test code = Segs Man) 61 % N Lymph Man (test code = Lymph 28 % N Man) Monocyte Man (test code = 9 % N Monocyte Man) Eos Man (test code = Eos Man) 2 % N Basophil Man (test code = 0 % N Basophil Man) Neut Man Abs (test code = Neut 9.3 2.7-7.3 H Man Abs) Lymph Man Abs (test code = Lymph 4.3 0.8-3.5 H Man Abs) [place] Man Abs (test code = [place] 1.4 0.3-0.9 H Man Abs) Eos Man Abs (test code = Eos Man 0.3 0.0-0.3 Abs) Baso Man Abs (test code = Baso 0.0 0.0-0.1 Man Abs) RBC Morph (test code = RBC As Indicated Normal A Morph) Anisocyte (test code = 1+ A Anisocyte) Joe Cells (test code = Joe 1+ A Cells) Plt Estimation (test code = Plt Normal Normal Estimation) Basic Metabolic [id number] 04:00:24 Test Item Value Reference Range Interpretation Comments Sodium Level (test code = Sodium 147 mmol/L 136-145 H Level) Potassium Level (test code = 4.5 mmol/L 3.5-5.1 Potassium Level) Chloride Level (test code = 122 mmol/L 98-107 H Chloride Level) CO2 (test code = CO2) 15 mmol/L 21-32 L Anion Gap (test code = Anion Gap) 10 mmol/L 7-16 BUN (test code = BUN) 49 mg/dL 7-18 H Creatinine Level (test code = 3.3 mg/dL 0.6-1.0 H Creatinine Level) Glucose Level (test code = Glucose 92 mg/dL 74-106 Level) Calcium Level (test code = Calcium 8.6 mg/dL 8.5-10.1 Level) Basic Metabolic [id number] 04:00:24 Test Item Value Reference Range Interpretation Comments Sodium Level (test code = 147 mmol/L 136-145 H Sodium Level) Potassium Level (test code 4.5 mmol/L 3.5-5.1 = Potassium Level) Chloride Level (test code = 122 mmol/L 98-107 H Chloride Level) CO2 (test code = CO2) 15 mmol/L 21-32 L Anion Gap (test code = 10 mmol/L 7-16 Anion Gap) BUN (test code = BUN) 49 mg/dL 7-18 H Creatinine Level (test code 3.3 mg/dL 0.6-1.0 H = Creatinine Level) Glucose Level (test code = 92 mg/dL 74-106 Glucose Level) Calcium Level (test code = 8.6 mg/dL 8.5-10.1 Calcium Level) eGFR AA (test code = eGFR 17 mL/min/1.73 m2 N AA) Basic Metabolic [id number] 04:00:24 Test Item Value Reference Range Interpretation Comments Sodium Level (test code = 147 mmol/L 136-145 H Sodium Level) Potassium Level (test code 4.5 mmol/L 3.5-5.1 = Potassium Level) Chloride Level (test code = 122 mmol/L 98-107 H Chloride Level) CO2 (test code = CO2) 15 mmol/L 21-32 L Anion Gap (test code = 10 mmol/L 7-16 Anion Gap) BUN (test code = BUN) 49 mg/dL 7-18 H Creatinine Level (test code 3.3 mg/dL 0.6-1.0 H = Creatinine Level) Glucose Level (test code = 92 mg/dL 74-106 Glucose Level) Calcium Level (test code = 8.6 mg/dL 8.5-10.1 Calcium Level) eGFR AA (test code = eGFR 17 mL/min/1.73 m2 N AA) eGFR Non-AA (test code = 14 mL/min/1.73 m2 N eGFR Non-AA) Complete Blood Count with [id number] 03:39:33 Test Item Value Reference Range Interpretation Comments WBC (test code = WBC) 15.3 x10 4.8-10.8 H RBC (test code = RBC) 3.58 x10 4.20-5.50 L Hgb (test code = Hgb) 10.7 g/dL 12.0-16.0 L Hct (test code = Hct) 32.9 % 35.0-47.0 L MCV (test code = MCV) 91.7 fL 80.0-95.0 RDW (test code = RDW) 16.7 % 11.5-14.5 H MCHC (test code = MCHC) 32.5 g/dL 31.0-36.0 MCH (test code = MCH) 29.8 pg 26.0-32.0 Platelets (test code = Platelets) 268 x10 140-440 MPV (test code = MPV) 8.8 fL 7.5-11.2 Slide Review (test code = Slide Manual N Review) POC [id number] 20:54:43 Test Item Value Reference Range Interpretation Comments Glucose POC (test 92 mg/dL 74-106 POC Glucos e used on code = Glucose POC) critical ly ill patients is considered " off-label use" and has no t been cleared or appr zuly by the FDA. Altern ative testing methods should be considered i f the patient is crit ically ill. POC [id number] 18:24:58 Test Item Value Reference Range Interpretation Comments Glucose POC (test 107 mg/dL 74-106 H POC Glucos e used on code = Glucose POC) critical ly ill patients is considered " off-label use" and has no t been cleared or appr zuly by the FDA. Altern ative testing methods should be considered i f the patient is crit ically ill. POC [id number] 14:58:35 Test Item Value Reference Range Interpretation Comments Glucose POC (test 93 mg/dL 74-106 POC Glucos e used on code = Glucose POC) critical ly ill patients is considered " off-label use" and has no t been cleared or appr zuly by the FDA. Altern ative testing methods should be considered i f the patient is crit ically ill. POC [id number] 10:27:27 Test Item Value Reference Range Interpretation Comments Glucose POC (test 113 mg/dL 74-106 H POC Glucos e used on code = Glucose POC) critical ly ill patients is considered " off-label use" and has no t been cleared or appr zuly by the FDA. Altern ative testing methods should be considered i f the patient is crit ically ill. Basic Metabolic [id number] 05:21:17 Test Item Value Reference Range Interpretation Comments Sodium Level (test code = Sodium 146 mmol/L 136-145 H Level) Potassium Level (test code = 4.8 mmol/L 3.5-5.1 Potassium Level) Chloride Level (test code = 118 mmol/L 98-107 H Chloride Level) CO2 (test code = CO2) 17 mmol/L 21-32 L Anion Gap (test code = Anion Gap) 11 mmol/L 7-16 BUN (test code = BUN) 54 mg/dL 7-18 H Creatinine Level (test code = 4.3 mg/dL 0.6-1.0 H Creatinine Level) Glucose Level (test code = Glucose 105 mg/dL 74-106 Level) Calcium Level (test code = Calcium 8.6 mg/dL 8.5-10.1 Level) Basic Metabolic [id number] 05:21:17 Test Item Value Reference Range Interpretation Comments Sodium Level (test code = 146 mmol/L 136-145 H Sodium Level) Potassium Level (test code 4.8 mmol/L 3.5-5.1 = Potassium Level) Chloride Level (test code = 118 mmol/L 98-107 H Chloride Level) CO2 (test code = CO2) 17 mmol/L 21-32 L Anion Gap (test code = 11 mmol/L 7-16 Anion Gap) BUN (test code = BUN) 54 mg/dL 7-18 H Creatinine Level (test code 4.3 mg/dL 0.6-1.0 H = Creatinine Level) Glucose Level (test code = 105 mg/dL 74-106 Glucose Level) Calcium Level (test code = 8.6 mg/dL 8.5-10.1 Calcium Level) eGFR AA (test code = eGFR 13 mL/min/1.73 m2 N AA) Basic Metabolic [id number] 05:21:17 Test Item Value Reference Range Interpretation Comments Sodium Level (test code = 146 mmol/L 136-145 H Sodium Level) Potassium Level (test code 4.8 mmol/L 3.5-5.1 = Potassium Level) Chloride Level (test code = 118 mmol/L 98-107 H Chloride Level) CO2 (test code = CO2) 17 mmol/L 21-32 L Anion Gap (test code = 11 mmol/L 7-16 Anion Gap) BUN (test code = BUN) 54 mg/dL 7-18 H Creatinine Level (test code 4.3 mg/dL 0.6-1.0 H = Creatinine Level) Glucose Level (test code = 105 mg/dL 74-106 Glucose Level) Calcium Level (test code = 8.6 mg/dL 8.5-10.1 Calcium Level) eGFR AA (test code = eGFR 13 mL/min/1.73 m2 N AA) eGFR Non-AA (test code = 11 mL/min/1.73 m2 N eGFR Non-AA) Complete Blood Count with [id number] 04:59:06 Test Item Value Reference Range Interpretation Comments WBC (test code = WBC) 12.0 x10 4.8-10.8 H RBC (test code = RBC) 3.10 x10 4.20-5.50 L Hgb (test code = Hgb) 9.2 g/dL 12.0-16.0 L Hct (test code = Hct) 27.7 % 35.0-47.0 L MCV (test code = MCV) 89.4 fL 80.0-95.0 RDW (test code = RDW) 15.9 % 11.5-14.5 H MCHC (test code = MCHC) 33.2 g/dL 31.0-36.0 MCH (test code = MCH) 29.7 pg 26.0-32.0 Platelets (test code = 272 x10 140-440 Platelets) MPV (test code = MPV) 8.7 fL 7.5-11.2 Slide Review (test code Auto N Resu lt created by = Slide Review) GL_SET_SLIDE _REVIEW_A UTO Automated [id number] 04:59:06 Test Item Value Reference Range Interpretation Comments Neutro Auto (test code = Neutro Auto) 63.4 % N Lymph Auto (test code = Lymph Auto) 18.4 % N [place] Auto (test code = [place] Auto) 12.2 % N Eos, Auto (test code = Eos, Auto) 5.5 % N Basophil Auto (test code = Basophil 0.5 % N Auto) Neutro Absolute (test code = Neutro 7.6 x10 2.7-7.3 H Absolute) Lymph Absolute (test code = Lymph 2.2 x10 0.8-3.5 Absolute) [place] Absolute (test code = [place] 1.5 x10 0.3-0.9 H Absolute) Eos Absolute (test code = Eos 0.7 x10 0.0-0.3 H Absolute) Baso Absolute (test code = Baso 0.1 x10 0.0-0.1 Absolute) POC [id number] 02:35:32 Test Item Value Reference Range Interpretation Comments Glucose POC (test 125 mg/dL 74-106 H POC Glucos e used on code = Glucose POC) critical ly ill patients is considered " off-label use" and has no t been cleared or appr zuly by the FDA. Altern ative testing methods should be considered i f the patient is crit ically ill. POC [id number] 18:41:51 Test Item Value Reference Range Interpretation Comments Glucose POC (test 126 mg/dL 74-106 H POC Glucos e used on code = Glucose POC) critical ly ill patients is considered " off-label use" and has no t been cleared or appr zuly by the FDA. Altern ative testing methods should be considered i f the patient is crit ically ill. POC [id number] 12:05:47 Test Item Value Reference Range Interpretation Comments Glucose POC (test 126 mg/dL 74-106 H POC Glucos e used on code = Glucose POC) critical ly ill patients is considered " off-label use" and has no t been cleared or appr zuly by the FDA. Altern ative testing methods should be considered i f the patient is crit ically ill. XR Abdomen 2 [id number] 07:26:36Patient: JANIS PATTERSON Date/Time03/15/2020 06:30 CDTReason for ExamPost op ileus;Abdominal distentionReportABDOMEN TWO VIEWS: Supine and uprigh tREASON FOR STUDY: Abdominal distention;Post op ileusThere is no evidence of free air. There is gasthroughout the GI tract are dominantly small bowel which is mildly distended perhaps sequela of an ileus these findings appear similar to yesterday. There may be some gas now present in the right colon. There are no abnormal abdominal or pelvic calcifications noted. The bones appear normal.IMPRESSION: Probable mild postop ileus similar to yesterday. Final Dictated by: MD Herrera Craig ADictated DT/TM: 03/15/2020 7:25 amSigned by: MD Herrera Craig ASigned (Electronic Signature): 03/15/2020 7:26 amPOC [id number] 06:35:09 Test Item Value Reference Range Interpretation Comments Glucose POC (test 126 mg/dL 74-106 H POC Glucos e used on code = Glucose POC) critical ly ill patients is considered " off-label use" and has no t been cleared or appr zuly by the FDA. Altern ative testing methods should be considered i f the patient is crit ically ill. Comprehensive Metabolic [id number] 06:02:17 Test Item Value Reference Range Interpretation Comments Sodium Level (test code = 143 mmol/L 136-145 Sodium Level) Potassium Level (test code 4.9 mmol/L 3.5-5.1 = Potassium Level) Chloride Level (test code = 116 mmol/L 98-107 H Chloride Level) CO2 (test code = CO2) 16 mmol/L 21-32 L Anion Gap (test code = 11 mmol/L 7-16 Anion Gap) BUN (test code = BUN) 55 mg/dL 7-18 H Creatinine Level (test code 4.8 mg/dL 0.6-1.0 H = Creatinine Level) Glucose Level (test code = 132 mg/dL 74-106 H Glucose Level) Calcium Level (test code = 8.3 mg/dL 8.5-10.1 L Calcium Level) Alk Phos (test code = Alk 98 IntlUnit/L 50-136 Phos) Bilirubin Total (test code 2.0 mg/dL 0.2-1.0 H = Bilirubin Total) Albumin Level (test code = 2.0 g/dL 3.4-5.0 L Albumin Level) Protein Total (test code = 6.5 g/dL 6.4-8.2 Protein Total) ALT (test code = ALT) 12 IntlUnit/L 12-78 AST (test code = AST) 22 IntlUnit/L 15-37 eGFR AA (test code = eGFR 11 mL/min/1.73 m2 N AA) eGFR Non-AA (test code = 9 mL/min/1.73 m2 N eGFR Non-AA) Comprehensive Metabolic [id number] 06:02:17 Test Item Value Reference Range Interpretation Comments Sodium Level (test code = 143 mmol/L 136-145 Sodium Level) Potassium Level (test code 4.9 mmol/L 3.5-5.1 = Potassium Level) Chloride Level (test code = 116 mmol/L 98-107 H Chloride Level) CO2 (test code = CO2) 16 mmol/L 21-32 L Anion Gap (test code = 11 mmol/L 7-16 Anion Gap) BUN (test code = BUN) 55 mg/dL 7-18 H Creatinine Level (test code 4.8 mg/dL 0.6-1.0 H = Creatinine Level) Glucose Level (test code = 132 mg/dL 74-106 H Glucose Level) Calcium Level (test code = 8.3 mg/dL 8.5-10.1 L Calcium Level) Alk Phos (test code = Alk 98 IntlUnit/L 50-136 Phos) Bilirubin Total (test code 2.0 mg/dL 0.2-1.0 H = Bilirubin Total) Albumin Level (test code = 2.0 g/dL 3.4-5.0 L Albumin Level) Protein Total (test code = 6.5 g/dL 6.4-8.2 Protein Total) ALT (test code = ALT) 12 IntlUnit/L 12-78 AST (test code = AST) 22 IntlUnit/L 15-37 eGFR AA (test code = eGFR 11 mL/min/1.73 m2 N AA) eGFR Non-AA (test code = 9 mL/min/1.73 m2 N eGFR Non-AA) Comprehensive Metabolic [id number] 06:02:17 Test Item Value Reference Range Interpretation Comments Sodium Level (test code = 143 mmol/L 136-145 Sodium Level) Potassium Level (test code 4.9 mmol/L 3.5-5.1 = Potassium Level) Chloride Level (test code = 116 mmol/L 98-107 H Chloride Level) CO2 (test code = CO2) 16 mmol/L 21-32 L Anion Gap (test code = 11 mmol/L 7-16 Anion Gap) BUN (test code = BUN) 55 mg/dL 7-18 H Creatinine Level (test code 4.8 mg/dL 0.6-1.0 H = Creatinine Level) Glucose Level (test code = 132 mg/dL 74-106 H Glucose Level) Calcium Level (test code = 8.3 mg/dL 8.5-10.1 L Calcium Level) Alk Phos (test code = Alk 98 IntlUnit/L 50-136 Phos) Bilirubin Total (test code 2.0 mg/dL 0.2-1.0 H = Bilirubin Total) Albumin Level (test code = 2.0 g/dL 3.4-5.0 L Albumin Level) Protein Total (test code = 6.5 g/dL 6.4-8.2 Protein Total) ALT (test code = ALT) 12 IntlUnit/L 12-78 AST (test code = AST) 22 IntlUnit/L 15-37 eGFR AA (test code = eGFR 11 mL/min/1.73 m2 N AA) eGFR Non-AA (test code = 9 mL/min/1.73 m2 N eGFR Non-AA) Complete Blood Count with [id number] 04:35:24 Test Item Value Reference Range Interpretation Comments WBC (test code = WBC) 12.9 x10 4.8-10.8 H RBC (test code = RBC) 3.28 x10 4.20-5.50 L Hgb (test code = Hgb) 9.6 g/dL 12.0-16.0 L Hct (test code = Hct) 29.1 % 35.0-47.0 L MCV (test code = MCV) 88.8 fL 80.0-95.0 MCHC (test code = MCHC) 33.0 g/dL 31.0-36.0 RDW (test code = RDW) 15.6 % 11.5-14.5 H MCH (test code = MCH) 29.3 pg 26.0-32.0 Platelets (test code = 297 x10 140-440 Platelets) MPV (test code = MPV) 8.8 fL 7.5-11.2 Slide Review (test code Auto N Resu lt created by = Slide Review) GL_SET_SLIDE _REVIEW_A UTO Automated [id number] 04:35:24 Test Item Value Reference Range Interpretation Comments Neutro Auto (test code = Neutro Auto) 76.2 % N Lymph Auto (test code = Lymph Auto) 11.5 % N [place] Auto (test code = [place] Auto) 9.1 % N Eos, Auto (test code = Eos, Auto) 2.7 % N Basophil Auto (test code = Basophil 0.5 % N Auto) Neutro Absolute (test code = Neutro 9.8 x10 2.7-7.3 H Absolute) Lymph Absolute (test code = Lymph 1.5 x10 0.8-3.5 Absolute) [place] Absolute (test code = [place] 1.2 x10 0.3-0.9 H Absolute) Eos Absolute (test code = Eos 0.3 x10 0.0-0.3 Absolute) Baso Absolute (test code = Baso 0.1 x10 0.0-0.1 Absolute) POC [id number] 04:17:11 Test Item Value Reference Range Interpretation Comments Glucose POC (test 113 mg/dL 74-106 H POC Glucos e used on code = Glucose POC) critical ly ill patients is considered " off-label use" and has no t been cleared or appr zuly by the FDA. Altern ative testing methods should be considered i f the patient is crit ically ill. POC [id number] 17:07:50 Test Item Value Reference Range Interpretation Comments Glucose POC (test 103 mg/dL 74-106 POC Glucos e used on code = Glucose POC) critical ly ill patients is considered " off-label use" and has no t been cleared or appr zuly by the FDA. Altern ative testing methods should be considered i f the patient is crit ically ill. POC [id number] 17:07:39 Test Item Value Reference Range Interpretation Comments Glucose POC (test 118 mg/dL 74-106 H POC Glucos e used on code = Glucose POC) critical ly ill patients is considered " off-label use" and has no t been cleared or appr zuly by the FDA. Altern ative testing methods should be considered i f the patient is crit ically ill. XR Chest 1 View [id number] 15:46:40Patient: JANIS PATTERSON Date/Time03/14/2020 15:19 CDTReason for ExamShortness of breathReportChest single viewHISTORY: Shortness of breathCOMPARISON: 03/11/2020TECHNIQUE: AP view providedFINDINGS: Heart size remains generous although likely accentuated by AP projection and shallow inspiratory lung volumes. Basilar crowding/atelectasis suspected, most pronounced in the right infrahilar region. Bony thorax unchanged where visualized.IMPRESSION: Shallow inspiratory lung volumes accentuating heart and pulmonary findings. Final Dictated by: MD Rubio JamesDictated DT/TM: 03/14/2020 3:45 pmSigned by: MD Rubio JamesSigned (Electronic Signature): 03/14/2020 3:46 pmXR Abdomen 2 [id number] 07:34:40Patient: JANIS PATTERSON Date/Time03/14/2020 06:01 CDTReason for ExamPost op anemia;Abdominal distentionReportABDOMEN TWO VIEWS: Supine and uprightREASON FOR STUDY: Abdominal distention;Post op anemiaThere is no evidence of free air. There is mild generalized abdominal gas nonspecific in appearance more likely sequela of a mild ileus. There are no abnormal abdominal or pelvic calcifications noted. The bones appear normal.IMPRESSION: Borderline bowel distention possibly a mild ileus. Final Dictated by: MD Herrera Craig ADictated DT/TM: 03/14/2020 7:33 amSigned by: MD Herrera Craig ASigned (Electronic Signature): 03/14/2020 7:34 amPOC [id number] 05:01:53 Test Item Value Reference Range Interpretation Comments Glucose POC (test 126 mg/dL 74-106 H POC Glucos e used on code = Glucose POC) critical ly ill patients is considered " off-label use" and has no t been cleared or appr zuly by the FDA. Altern ative testing methods should be considered i f the patient is crit ically ill. Comprehensive Metabolic [id number] 04:22:14 Test Item Value Reference Range Interpretation Comments Sodium Level (test code = 142 mmol/L 136-145 Sodium Level) Potassium Level (test code = 5.2 mmol/L 3.5-5.1 H Potassium Level) Chloride Level (test code = 116 mmol/L 98-107 H Chloride Level) CO2 (test code = CO2) 15 mmol/L 21-32 L Anion Gap (test code = Anion 11 mmol/L 7-16 Gap) BUN (test code = BUN) 52 mg/dL 7-18 H Creatinine Level (test code = 4.9 mg/dL 0.6-1.0 H Creatinine Level) Glucose Level (test code = 107 mg/dL 74-106 H Glucose Level) Calcium Level (test code = 7.7 mg/dL 8.5-10.1 L Calcium Level) Alk Phos (test code = Alk Phos) 87 IntlUnit/L 50-136 Bilirubin Total (test code = 2.6 mg/dL 0.2-1.0 H Bilirubin Total) Albumin Level (test code = 1.8 g/dL 3.4-5.0 L Albumin Level) Protein Total (test code = 5.8 g/dL 6.4-8.2 L Protein Total) ALT (test code = ALT) 12 IntlUnit/L 12-78 AST (test code = AST) 32 IntlUnit/L 15-37 Lipase [id number] 04:22:14 Test Item Value Reference Range Interpretation Comments Lipase Level (test code = 167 IntlUnit/L 73-393 Lipase Level) Comprehensive Metabolic [id number] 04:22:14 Test Item Value Reference Range Interpretation Comments Sodium Level (test code = 142 mmol/L 136-145 Sodium Level) Potassium Level (test code 5.2 mmol/L 3.5-5.1 H = Potassium Level) Chloride Level (test code = 116 mmol/L 98-107 H Chloride Level) CO2 (test code = CO2) 15 mmol/L 21-32 L Anion Gap (test code = 11 mmol/L 7-16 Anion Gap) BUN (test code = BUN) 52 mg/dL 7-18 H Creatinine Level (test code 4.9 mg/dL 0.6-1.0 H = Creatinine Level) Glucose Level (test code = 107 mg/dL 74-106 H Glucose Level) Calcium Level (test code = 7.7 mg/dL 8.5-10.1 L Calcium Level) Alk Phos (test code = Alk 87 IntlUnit/L 50-136 Phos) Bilirubin Total (test code 2.6 mg/dL 0.2-1.0 H = Bilirubin Total) Albumin Level (test code = 1.8 g/dL 3.4-5.0 L Albumin Level) Protein Total (test code = 5.8 g/dL 6.4-8.2 L Protein Total) ALT (test code = ALT) 12 IntlUnit/L 12-78 AST (test code = AST) 32 IntlUnit/L 15-37 eGFR AA (test code = eGFR 11 mL/min/1.73 m2 N AA) Comprehensive Metabolic [id number] 04:22:14 Test Item Value Reference Range Interpretation Comments Sodium Level (test code = 142 mmol/L 136-145 Sodium Level) Potassium Level (test code 5.2 mmol/L 3.5-5.1 H = Potassium Level) Chloride Level (test code = 116 mmol/L 98-107 H Chloride Level) CO2 (test code = CO2) 15 mmol/L 21-32 L Anion Gap (test code = 11 mmol/L 7-16 Anion Gap) BUN (test code = BUN) 52 mg/dL 7-18 H Creatinine Level (test code 4.9 mg/dL 0.6-1.0 H = Creatinine Level) Glucose Level (test code = 107 mg/dL 74-106 H Glucose Level) Calcium Level (test code = 7.7 mg/dL 8.5-10.1 L Calcium Level) Alk Phos (test code = Alk 87 IntlUnit/L 50-136 Phos) Bilirubin Total (test code 2.6 mg/dL 0.2-1.0 H = Bilirubin Total) Albumin Level (test code = 1.8 g/dL 3.4-5.0 L Albumin Level) Protein Total (test code = 5.8 g/dL 6.4-8.2 L Protein Total) ALT (test code = ALT) 12 IntlUnit/L 12-78 AST (test code = AST) 32 IntlUnit/L 15-37 eGFR AA (test code = eGFR 11 mL/min/1.73 m2 N AA) eGFR Non-AA (test code = 9 mL/min/1.73 m2 N eGFR Non-AA) Complete Blood Count with [id number] 04:00:46 Test Item Value Reference Range Interpretation Comments WBC (test code = WBC) 15.1 x10 4.8-10.8 H RBC (test code = RBC) 3.00 x10 4.20-5.50 L Hgb (test code = Hgb) 8.8 g/dL 12.0-16.0 L MCV (test code = MCV) 88.5 fL 80.0-95.0 Hct (test code = Hct) 26.6 % 35.0-47.0 L MCHC (test code = MCHC) 33.3 g/dL 31.0-36.0 RDW (test code = RDW) 15.1 % 11.5-14.5 H MCH (test code = MCH) 29.5 pg 26.0-32.0 Platelets (test code = 256 x10 140-440 Platelets) MPV (test code = MPV) 9.4 fL 7.5-11.2 Slide Review (test code Auto N Resu lt created by = Slide Review) GL_SET_SLIDE _REVIEW_A UTO Automated [id number] 04:00:46 Test Item Value Reference Range Interpretation Comments Neutro Auto (test code = Neutro 75.2 % N Auto) Lymph Auto (test code = Lymph Auto) 13.8 % N [place] Auto (test code = [place] Auto) 7.6 % N Eos, Auto (test code = Eos, Auto) 3.1 % N Basophil Auto (test code = Basophil 0.3 % N Auto) Neutro Absolute (test code = Neutro 11.3 x10 2.7-7.3 H Absolute) Lymph Absolute (test code = Lymph 2.1 x10 0.8-3.5 Absolute) [place] Absolute (test code = [place] 1.2 x10 0.3-0.9 H Absolute) Eos Absolute (test code = Eos 0.5 x10 0.0-0.3 H Absolute) Baso Absolute (test code = Baso 0.0 x10 0.0-0.1 Absolute) POC [id number] 21:27:38 Test Item Value Reference Range Interpretation Comments Glucose POC (test 176 mg/dL 74-106 H POC Glucos e used on code = Glucose POC) critical ly ill patients is considered " off-label use" and has no t been cleared or appr zuly by the FDA. Altern ative testing methods should be considered i f the patient is crit ically ill. POC [id number] 21:27:31 Test Item Value Reference Range Interpretation Comments Glucose POC (test 141 mg/dL 74-106 H POC Glucos e used on code = Glucose POC) critical ly ill patients is considered " off-label use" and has no t been cleared or appr zuly by the FDA. Altern ative testing methods should be considered i f the patient is crit ically ill. POC [id number] 20:03:58 Test Item Value Reference Range Interpretation Comments Glucose POC (test 130 mg/dL 74-106 H POC Glucos e used on code = Glucose POC) critical ly ill patients is considered " off-label use" and has no t been cleared or appr zuly by the FDA. Altern ative testing methods should be considered i f the patient is crit ically ill. Red Blood Cells [id number] 05:08:02 Test Item Value Reference Range Interpretation Comments # of Units (test code = 2 N # of Units) RBC Trn Reason (test High risk, even if N code = RBC Trn Reason) Hgb > 7 RBC Product Ready (test RBC Ready code = RBC Product Ready) Automated [id number] 04:40:58 Test Item Value Reference Range Interpretation Comments Neutro Auto (test code = Neutro 75.6 % N Auto) Lymph Auto (test code = Lymph Auto) 15.7 % N [place] Auto (test code = [place] Auto) 7.2 % N Eos, Auto (test code = Eos, Auto) 1.1 % N Basophil Auto (test code = Basophil 0.4 % N Auto) Neutro Absolute (test code = Neutro 12.3 x10 2.7-7.3 H Absolute) Lymph Absolute (test code = Lymph 2.6 x10 0.8-3.5 Absolute) [place] Absolute (test code = [place] 1.2 x10 0.3-0.9 H Absolute) Eos Absolute (test code = Eos 0.2 x10 0.0-0.3 Absolute) Baso Absolute (test code = Baso 0.1 x10 0.0-0.1 Absolute) Complete Blood Count with [id number] 04:40:57 Test Item Value Reference Range Interpretation Comments WBC (test code = WBC) 16.3 x10 4.8-10.8 H RBC (test code = RBC) 2.66 x10 4.20-5.50 L Hgb (test code = Hgb) 7.9 g/dL 12.0-16.0 ctrb/ k maldonado / rn / jagjit 03/13/2020 04 :40:54 CDT Hct (test code = Hct) 23.4 % 35.0-47.0 ctrb/ k maldonado / rn / li 03/13/2020 04 :40:54 CDT MCV (test code = MCV) 88.0 fL 80.0-95.0 RDW (test code = RDW) 15.0 % 11.5-14.5 H MCHC (test code = MCHC) 33.6 g/dL 31.0-36.0 MCH (test code = MCH) 29.6 pg 26.0-32.0 Platelets (test code = 248 x10 140-440 Platelets) MPV (test code = MPV) 9.2 fL 7.5-11.2 Slide Review (test code Auto N Resu lt created by = Slide Review) GL_SET_SLIDE _REVIEW_A UTO Basic Metabolic [id number] 04:37:09 Test Item Value Reference Range Interpretation Comments Sodium Level (test code = Sodium 142 mmol/L 136-145 Level) Potassium Level (test code = 4.7 mmol/L 3.5-5.1 Potassium Level) Chloride Level (test code = 114 mmol/L 98-107 H Chloride Level) CO2 (test code = CO2) 17 mmol/L 21-32 L Anion Gap (test code = Anion Gap) 11 mmol/L 7-16 BUN (test code = BUN) 45 mg/dL 7-18 H Creatinine Level (test code = 4.3 mg/dL 0.6-1.0 H Creatinine Level) Glucose Level (test code = Glucose 156 mg/dL 74-106 H Level) Calcium Level (test code = Calcium 7.4 mg/dL 8.5-10.1 L Level) Basic Metabolic [id number] 04:37:09 Test Item Value Reference Range Interpretation Comments Sodium Level (test code = 142 mmol/L 136-145 Sodium Level) Potassium Level (test code 4.7 mmol/L 3.5-5.1 = Potassium Level) Chloride Level (test code = 114 mmol/L 98-107 H Chloride Level) CO2 (test code = CO2) 17 mmol/L 21-32 L Anion Gap (test code = 11 mmol/L 7-16 Anion Gap) BUN (test code = BUN) 45 mg/dL 7-18 H Creatinine Level (test code 4.3 mg/dL 0.6-1.0 H = Creatinine Level) Glucose Level (test code = 156 mg/dL 74-106 H Glucose Level) Calcium Level (test code = 7.4 mg/dL 8.5-10.1 L Calcium Level) eGFR AA (test code = eGFR 13 mL/min/1.73 m2 N AA) Basic Metabolic [id number] 04:37:09 Test Item Value Reference Range Interpretation Comments Sodium Level (test code = 142 mmol/L 136-145 Sodium Level) Potassium Level (test code 4.7 mmol/L 3.5-5.1 = Potassium Level) Chloride Level (test code = 114 mmol/L 98-107 H Chloride Level) CO2 (test code = CO2) 17 mmol/L 21-32 L Anion Gap (test code = 11 mmol/L 7-16 Anion Gap) BUN (test code = BUN) 45 mg/dL 7-18 H Creatinine Level (test code 4.3 mg/dL 0.6-1.0 H = Creatinine Level) Glucose Level (test code = 156 mg/dL 74-106 H Glucose Level) Calcium Level (test code = 7.4 mg/dL 8.5-10.1 L Calcium Level) eGFR AA (test code = eGFR 13 mL/min/1.73 m2 N AA) eGFR Non-AA (test code = 11 mL/min/1.73 m2 N eGFR Non-AA) POC [id number] 20:05:34 Test Item Value Reference Range Interpretation Comments Glucose POC (test 176 mg/dL 74-106 H POC Glucos e used on code = Glucose POC) critical ly ill patients is considered " off-label use" and has no t been cleared or appr zuly by the FDA. Altern ative testing methods should be considered i f the patient is crit ically ill. POC [id number] 20:05:31 Test Item Value Reference Range Interpretation Comments Glucose POC (test 196 mg/dL 74-106 H POC Glucos e used on code = Glucose POC) critical ly ill patients is considered " off-label use" and has no t been cleared or appr zuly by the FDA. Altern ative testing methods should be considered i f the patient is crit ically ill. POC [id number] 14:07:30 Test Item Value Reference Range Interpretation Comments Glucose POC (test 214 mg/dL 74-106 H POC Glucos e used on code = Glucose POC) critical ly ill patients is considered " off-label use" and has no t been cleared or appr zuly by the FDA. Altern ative testing methods should be considered i f the patient is crit ically ill. Comprehensive Metabolic [id number] 13:32:29 Test Item Value Reference Range Interpretation Comments Sodium Level (test 139 mmol/L 136-145 code = Sodium Level) Potassium Level (test 5.2 mmol/L 3.5-5.1 H code = Potassium Level) Chloride Level (test 108 mmol/L 98-107 H code = Chloride Level) CO2 (test code = CO2) 22 mmol/L 21-32 Anion Gap (test code 9 mmol/L 7-16 = Anion Gap) BUN (test code = BUN) 39 mg/dL 7-18 H Creatinine Level 4.0 mg/dL 0.6-1.0 H (test code = Creatinine Level) Glucose Level (test 209 mg/dL 74-106 H code = Glucose Level) Calcium Level (test 7.4 mg/dL 8.5-10.1 L code = Calcium Level) Alk Phos (test code = 90 IntlUnit/L 50-136 Alk Phos) Bilirubin Total (test 6.8 mg/dL 0.2-1.0 CTRB/Santos VELÁZQUEZ code = Bilirubin RN 0 Total) 13:32:18 CDT/RS M Albumin Level (test 2.4 g/dL 3.4-5.0 L code = Albumin Level) Protein Total (test 6.2 g/dL 6.4-8.2 L code = Protein Total) ALT (test code = ALT) 13 IntlUnit/L 12-78 AST (test code = AST) 30 IntlUnit/L 15-37 Comprehensive Metabolic [id number] 13:32:29 Test Item Value Reference Range Interpretation Comments Sodium Level (test 139 mmol/L 136-145 code = Sodium Level) Potassium Level 5.2 mmol/L 3.5-5.1 H (test code = Potassium Level) Chloride Level (test 108 mmol/L 98-107 H code = Chloride Level) CO2 (test code = 22 mmol/L 21-32 CO2) Anion Gap (test code 9 mmol/L 7-16 = Anion Gap) BUN (test code = 39 mg/dL 7-18 H BUN) Creatinine Level 4.0 mg/dL 0.6-1.0 H (test code = Creatinine Level) Glucose Level (test 209 mg/dL 74-106 H code = Glucose Level) Calcium Level (test 7.4 mg/dL 8.5-10.1 L code = Calcium Level) Alk Phos (test code 90 IntlUnit/L 50-136 = Alk Phos) Bilirubin Total 6.8 mg/dL 0.2-1.0 CTRB/B. NESTOR LUA (test code = RN 03/12/2020 Bilirubin Total) 13:32:18 CD T/RSM Albumin Level (test 2.4 g/dL 3.4-5.0 L code = Albumin Level) Protein Total (test 6.2 g/dL 6.4-8.2 L code = Protein Total) ALT (test code = 13 IntlUnit/L 12-78 ALT) AST (test code = 30 IntlUnit/L 15-37 AST) eGFR AA (test code = 14 mL/min/1.73 N eGFR AA) m2 eGFR Non-AA (test 12 mL/min/1.73 N code = eGFR Non-AA) m2 Comprehensive Metabolic [id number] 13:32:29 Test Item Value Reference Range Interpretation Comments Sodium Level (test 139 mmol/L 136-145 code = Sodium Level) Potassium Level 5.2 mmol/L 3.5-5.1 H (test code = Potassium Level) Chloride Level (test 108 mmol/L 98-107 H code = Chloride Level) CO2 (test code = 22 mmol/L 21-32 CO2) Anion Gap (test code 9 mmol/L 7-16 = Anion Gap) BUN (test code = 39 mg/dL 7-18 H BUN) Creatinine Level 4.0 mg/dL 0.6-1.0 H (test code = Creatinine Level) Glucose Level (test 209 mg/dL 74-106 H code = Glucose Level) Calcium Level (test 7.4 mg/dL 8.5-10.1 L code = Calcium Level) Alk Phos (test code 90 IntlUnit/L 50-136 = Alk Phos) Bilirubin Total 6.8 mg/dL 0.2-1.0 CTRB/B. NESTOR LUA (test code = RN 03/12/2020 Bilirubin Total) 13:32:18 CD T/RSM Albumin Level (test 2.4 g/dL 3.4-5.0 L code = Albumin Level) Protein Total (test 6.2 g/dL 6.4-8.2 L code = Protein Total) ALT (test code = 13 IntlUnit/L 12-78 ALT) AST (test code = 30 IntlUnit/L 15-37 AST) eGFR AA (test code = 14 mL/min/1.73 N eGFR AA) m2 eGFR Non-AA (test 12 mL/min/1.73 N code = eGFR Non-AA) m2 Complete Blood Count with [id number] 13:08:12 Test Item Value Reference Range Interpretation Comments WBC (test code = WBC) 16.7 x10 4.8-10.8 H RBC (test code = RBC) 3.14 x10 4.20-5.50 L Hgb (test code = Hgb) 9.0 g/dL 12.0-16.0 L Hct (test code = Hct) 27.6 % 35.0-47.0 L MCV (test code = MCV) 87.7 fL 80.0-95.0 RDW (test code = RDW) 14.4 % 11.5-14.5 MCHC (test code = MCHC) 32.8 g/dL 31.0-36.0 MCH (test code = MCH) 28.8 pg 26.0-32.0 Platelets (test code = 298 x10 140-440 Platelets) MPV (test code = MPV) 9.0 fL 7.5-11.2 Slide Review (test code Auto N Resu lt created by = Slide Review) GL_SET_SLIDE _REVIEW_A UTO Automated [id number] 13:08:12 Test Item Value Reference Range Interpretation Comments Neutro Auto (test code = Neutro 80.7 % N Auto) Lymph Auto (test code = Lymph Auto) 11.4 % N [place] Auto (test code = [place] Auto) 6.9 % N Eos, Auto (test code = Eos, Auto) 0.5 % N Basophil Auto (test code = Basophil 0.5 % N Auto) Neutro Absolute (test code = Neutro 13.5 x10 2.7-7.3 H Absolute) Lymph Absolute (test code = Lymph 1.9 x10 0.8-3.5 Absolute) [place] Absolute (test code = [place] 1.2 x10 0.3-0.9 H Absolute) Eos Absolute (test code = Eos 0.1 x10 0.0-0.3 Absolute) Baso Absolute (test code = Baso 0.1 x10 0.0-0.1 Absolute) POC [id number] 05:48:53 Test Item Value Reference Range Interpretation Comments Glucose POC (test 174 mg/dL 74-106 H POC Glucos e used on code = Glucose POC) critical ly ill patients is considered " off-label use" and has no t been cleared or appr zuly by the FDA. Altern ative testing methods should be considered i f the patient is crit ically ill. Red Blood Cells [id number] 00:56:23 Test Item Value Reference Range Interpretation Comments # of Units (test code = 2 N # of Units) RBC Trn Reason (test Other (please N code = RBC Trn Reason) specify) RBC Product Ready (test RBC Ready code = RBC Product Ready) [id number] 23:05:30 Test Item Value Reference Range Interpretation Comments Previous History (test code Yes Prev History = Previous History) BBID (test code = BBID) [id number] Methodology (test code = Ortho-Vision(OV) Methodology) Anti-A (test code = Anti-A) 4+ Anti-B (test code = Anti-B) 4+ Anti-D (test code = Anti-D) 4+ DCon (test code = DCon) 0 A1 (test code = A1) 0 B cells (test code = B 0 cells) ABORh (test code = ABORh) AB POS 2C [id number] 23:05:30 Test Item Value Reference Range Interpretation Comments Methodology (test code = Ortho-Vision(OV) Methodology) SC1 (test code = SC1) 0 SC2 (test code = SC2) 0 Antibody Screen (2C) (test Negative ABSC code = Antibody Screen (2C)) Basic Metabolic [id number] 22:42:20 Test Item Value Reference Range Interpretation Comments Sodium Level (test code = Sodium 139 mmol/L 136-145 Level) Potassium Level (test code = 5.1 mmol/L 3.5-5.1 Potassium Level) Chloride Level (test code = 106 mmol/L 98-107 Chloride Level) CO2 (test code = CO2) 25 mmol/L 21-32 Anion Gap (test code = Anion Gap) 8 mmol/L 7-16 BUN (test code = BUN) 30 mg/dL 7-18 H Creatinine Level (test code = 3.1 mg/dL 0.6-1.0 H Creatinine Level) Glucose Level (test code = Glucose 219 mg/dL 74-106 H Level) Calcium Level (test code = Calcium 7.7 mg/dL 8.5-10.1 L Level) Basic Metabolic [id number] 22:42:20 Test Item Value Reference Range Interpretation Comments Sodium Level (test code = 139 mmol/L 136-145 Sodium Level) Potassium Level (test code 5.1 mmol/L 3.5-5.1 = Potassium Level) Chloride Level (test code = 106 mmol/L 98-107 Chloride Level) CO2 (test code = CO2) 25 mmol/L 21-32 Anion Gap (test code = 8 mmol/L 7-16 Anion Gap) BUN (test code = BUN) 30 mg/dL 7-18 H Creatinine Level (test code 3.1 mg/dL 0.6-1.0 H = Creatinine Level) Glucose Level (test code = 219 mg/dL 74-106 H Glucose Level) Calcium Level (test code = 7.7 mg/dL 8.5-10.1 L Calcium Level) eGFR AA (test code = eGFR 19 mL/min/1.73 m2 N AA) Basic Metabolic [id number] 22:42:20 Test Item Value Reference Range Interpretation Comments Sodium Level (test code = 139 mmol/L 136-145 Sodium Level) Potassium Level (test code 5.1 mmol/L 3.5-5.1 = Potassium Level) Chloride Level (test code = 106 mmol/L 98-107 Chloride Level) CO2 (test code = CO2) 25 mmol/L 21-32 Anion Gap (test code = 8 mmol/L 7-16 Anion Gap) BUN (test code = BUN) 30 mg/dL 7-18 H Creatinine Level (test code 3.1 mg/dL 0.6-1.0 H = Creatinine Level) Glucose Level (test code = 219 mg/dL 74-106 H Glucose Level) Calcium Level (test code = 7.7 mg/dL 8.5-10.1 L Calcium Level) eGFR AA (test code = eGFR 19 mL/min/1.73 m2 N AA) eGFR Non-AA (test code = 15 mL/min/1.73 m2 N eGFR Non-AA) Complete Blood Count with [id number] 22:23:44 Test Item Value Reference Range Interpretation Comments WBC (test code = WBC) 12.5 x10 4.8-10.8 H RBC (test code = RBC) 2.76 x10 4.20-5.50 L Hgb (test code = Hgb) 8.0 g/dL 12.0-16.0 L Hct (test code = Hct) 24.1 % 35.0-47.0 Critic al results called to onur maldonado rn at 03/11/2020 22:23 :29 CDT by tjjayshree. Re ad back and verifi ed? y MCV (test code = MCV) 87.3 fL 80.0-95.0 RDW (test code = RDW) 15.2 % 11.5-14.5 H MCHC (test code = MCHC) 33.1 g/dL 31.0-36.0 MCH (test code = MCH) 28.9 pg 26.0-32.0 Platelets (test code = 340 x10 140-440 Platelets) MPV (test code = MPV) 8.6 fL 7.5-11.2 Slide Review (test code Auto N Resu lt created by = Slide Review) GL_SET_SLIDE _REVIEW_A UTO Automated [id number] 22:23:44 Test Item Value Reference Range Interpretation Comments Neutro Auto (test code = Neutro Auto) 75.1 % N Lymph Auto (test code = Lymph Auto) 15.7 % N [place] Auto (test code = [place] Auto) 8.8 % N Eos, Auto (test code = Eos, Auto) 0.1 % N Basophil Auto (test code = Basophil 0.3 % N Auto) Neutro Absolute (test code = Neutro 9.4 x10 2.7-7.3 H Absolute) Lymph Absolute (test code = Lymph 2.0 x10 0.8-3.5 Absolute) [place] Absolute (test code = [place] 1.1 x10 0.3-0.9 H Absolute) Eos Absolute (test code = Eos 0.0 x10 0.0-0.3 Absolute) Baso Absolute (test code = Baso 0.0 x10 0.0-0.1 Absolute) POC [id number] 21:25:30 Test Item Value Reference Range Interpretation Comments Glucose POC (test 283 mg/dL 74-106 H POC Glucos e used on code = Glucose POC) critical ly ill patients is considered " off-label use" and has no t been cleared or appr zuly by the FDA. Altern ative testing methods should be considered i f the patient is crit ically ill. POC [id number] 16:33:28 Test Item Value Reference Range Interpretation Comments Glucose POC (test 267 mg/dL 74-106 H POC Glucos e used on code = Glucose POC) critical ly ill patients is considered " off-label use" and has no t been cleared or appr zuly by the FDA. Altern ative testing methods should be considered i f the patient is crit ically ill. Basic Metabolic [id number] 14:17:33 Test Item Value Reference Range Interpretation Comments Sodium Level (test 135 mmol/L 136-145 L code = Sodium Level) Potassium Level (test 6.1 mmol/L 3.5-5.1 [facility] = Potassium 03/11/2020 1 4:17:22 Level) CDT pbh Chloride Level (test 103 mmol/L 98-107 code = Chloride Level) CO2 (test code = CO2) 23 mmol/L 21-32 Anion Gap (test code = 9 mmol/L 7-16 Anion Gap) BUN (test code = BUN) 23 mg/dL 7-18 H Creatinine Level (test 2.4 mg/dL 0.6-1.0 H code = Creatinine Level) Glucose Level (test 340 mg/dL 74-106 H code = Glucose Level) Calcium Level (test 8.7 mg/dL 8.5-10.1 code = Calcium Level) Basic Metabolic [id number] 14:17:33 Test Item Value Reference Range Interpretation Comments Sodium Level (test 135 mmol/L 136-145 L code = Sodium Level) Potassium Level 6.1 mmol/L 3.5-5.1 ctrb theresa (test code = allengate 2019 Potassium Level) 14:17:22 CD T pbh Chloride Level (test 103 mmol/L 98-107 code = Chloride Level) CO2 (test code = 23 mmol/L 21-32 CO2) Anion Gap (test code 9 mmol/L 7-16 = Anion Gap) BUN (test code = 23 mg/dL 7-18 H BUN) Creatinine Level 2.4 mg/dL 0.6-1.0 H (test code = Creatinine Level) Glucose Level (test 340 mg/dL 74-106 H code = Glucose Level) Calcium Level (test 8.7 mg/dL 8.5-10.1 code = Calcium Level) eGFR AA (test code = 25 mL/min/1.73 N eGFR AA) m2 Basic Metabolic [id number] 14:17:33 Test Item Value Reference Range Interpretation Comments Sodium Level (test 135 mmol/L 136-145 L code = Sodium Level) Potassium Level 6.1 mmol/L 3.5-5.1 ctrb theresa (test code = allengate 2019 Potassium Level) 14:17:22 CD T pbh Chloride Level (test 103 mmol/L 98-107 code = Chloride Level) CO2 (test code = 23 mmol/L 21-32 CO2) Anion Gap (test code 9 mmol/L 7-16 = Anion Gap) BUN (test code = 23 mg/dL 7-18 H BUN) Creatinine Level 2.4 mg/dL 0.6-1.0 H (test code = Creatinine Level) Glucose Level (test 340 mg/dL 74-106 H code = Glucose Level) Calcium Level (test 8.7 mg/dL 8.5-10.1 code = Calcium Level) eGFR AA (test code = 25 mL/min/1.73 N eGFR AA) m2 eGFR Non-AA (test 21 mL/min/1.73 N code = eGFR Non-AA) m2 Complete Blood Count with [id number] 13:55:20 Test Item Value Reference Range Interpretation Comments WBC (test code = WBC) 14.1 x10 4.8-10.8 H RBC (test code = RBC) 3.33 x10 4.20-5.50 L Hgb (test code = Hgb) 9.3 g/dL 12.0-16.0 L MCV (test code = MCV) 87.9 fL 80.0-95.0 Hct (test code = Hct) 29.2 % 35.0-47.0 L RDW (test code = RDW) 14.9 % 11.5-14.5 H MCHC (test code = MCHC) 31.8 g/dL 31.0-36.0 MCH (test code = MCH) 27.9 pg 26.0-32.0 Platelets (test code = 444 x10 140-440 H Platelets) MPV (test code = MPV) 9.0 fL 7.5-11.2 Slide Review (test code Auto N Resu lt created by = Slide Review) GL_SET_SLIDE _REVIEW_A UTO Automated [id number] 13:55:20 Test Item Value Reference Range Interpretation Comments Neutro Auto (test code = Neutro 85.0 % N Auto) Lymph Auto (test code = Lymph Auto) 9.6 % N [place] Auto (test code = [place] Auto) 5.0 % N Eos, Auto (test code = Eos, Auto) 0.1 % N Basophil Auto (test code = Basophil 0.3 % N Auto) Neutro Absolute (test code = Neutro 12.0 x10 2.7-7.3 H Absolute) Lymph Absolute (test code = Lymph 1.4 x10 0.8-3.5 Absolute) [place] Absolute (test code = [place] 0.7 x10 0.3-0.9 Absolute) Eos Absolute (test code = Eos 0.0 x10 0.0-0.3 Absolute) Baso Absolute (test code = Baso 0.0 x10 0.0-0.1 Absolute) POC [id number] 13:51:38 Test Item Value Reference Range Interpretation Comments Glucose POC (test 341 mg/dL 74-106 H POC Glucos e used on code = Glucose POC) critical ly ill patients is considered " off-label use" and has no t been cleared or appr zuly by the FDA. Altern ative testing methods should be considered i f the patient is crit ically ill. POC G3+ [id number] 13:02:53 Test Item Value Reference Range Interpretation Comments pH Art (test code = pH Art) 7.38 pH units 7.35-7.45 pCO2 Art (test code = pCO2 Art) 33.1 mmHg 35.0-45.0 L pO2 Art (test code = pO2 Art) 138.0 mmHg 85.0-100.0 H O2 Sat Art (test code = O2 Sat 99.0 % 92.0-98.5 H Art) HCO3 Art (test code = HCO3 Art) 19.6 mmol/L 22.0-26.0 L FIO2% (test code = FIO2%) 32.0 % N Base Excess Arterial (test code -6 mmol/L -2-2 L = Base Excess Arterial) Jose Enrique's Test (test code = Pass Pass Jose Enrique's Test) Del Sys (test code = Del Sys) Nasal Can N Flow (LPM) (test code = Flow 3.0 N (LPM)) Performing Site (test code = R Radial N Performing Site) POC [id number] 10:04:37 Test Item Value Reference Range Interpretation Comments Glucose POC (test 197 mg/dL 74-106 H POC Glucos e used on code = Glucose POC) critical ly ill patients is considered " off-label use" and has no t been cleared or appr zuly by the FDA. Altern ative testing methods should be considered i f the patient is crit ically ill. POC [id number] 07:57:55 Test Item Value Reference Range Interpretation Comments Glucose POC (test 234 mg/dL 74-106 H POC Glucos e used on code = Glucose POC) critical ly ill patients is considered " off-label use" and has no t been cleared or appr zuly by the FDA. Altern ative testing methods should be considered i f the patient is crit ically ill. XR Chest 1 View [id number] 06:44:47Patient: JANIS PATTERSON Date/Time03/11/2020 01:10 CDTReason for Exampre op;Other (please specify)ReportXR CHEST 1 VIEW FRONTALDIAGNOSIS: Preop for respiratory clearance and appendectomyThe heart and mediastinum are stable. No consolidation or pleural fluid is seen.IMPRESSION: No active disease and no change since 02/21/2020. Final Dictated by: MD Patty, Phu Zazuetactated DT/TM: 03/11/2020 6:43 amSigned by: MD Brambila Michael JackSigned (Electronic Signature): 03/11/2020 6:44 amUrine [id number] 02:35:50Multiple organisms isolated. Probable contaminant. Suggest sterile recollect. No further workup.Urinalysis [id number] 02:09:15 Test Item Value Reference Range Interpretation Comments UA WBC (test code = UA WBC) 51-100 /HPF 0-5 A UA RBC (test code = UA RBC) 0-4 /HPF 0-4 UA Bacteria (test code = UA 3+ /HPF Negative A Bacteria) UA Squam Epithelial (test code = 0-20 /LPF 0-20 UA Squam Epithelial) Urinalysis with Culture, if [id number] 02:04:59 Test Item Value Reference Range Interpretation Comments UA Color (test code = UA Color) Dk Yellow Yellow A UA Appear (test code = UA Appear) Cloudy Clear A UA pH (test code = UA pH) 5.0 UA Spec Grav (test code = UA Spec 1.023 SGU 1.005-1.030 Grav) UA Glucose (test code = UA Glucose) Negative Negative UA Bili (test code = UA Bili) Negative Negative UA Ketones (test code = UA Ketones) Trace Negative A UA Blood (test code = UA Blood) Trace Negative A UA Protein (test code = UA Protein) Trace Negative A UA Urobilinogen (test code = UA 1.0 EU/dL >0.2 Urobilinogen) UA Nitrite (test code = UA Nitrite) Negative Negative UA Leuk Est (test code = UA Leuk 3+ Negative A Est) UA Micro Ind? (test code = UA Micro Indicated Not Indicated A Ind?) Partial Thromboplastin [id number] 01:19:59 Test Item Value Reference Range Interpretation Comments Partial Thromboplastin 28.3 seconds 24.0-35.0 APTT Heparin Time (test code = Therapeuti c Range: Partial Thromboplastin 47.9- 80.4 seconds Time) Prothrombin Time and [id number] 01:19:58 Test Item Value Reference Range Interpretation Comments Prothrombin Time (test code = 11.0 seconds 9.2-12.0 Prothrombin Time) INR (test code = INR) 1.0 ratio 0.9-1.2 Magnesium [id number] 01:14:16 Test Item Value Reference Range Interpretation Comments Magnesium Level (test code = 1.4 mg/dL 1.6-2.6 L Magnesium Level) CT Abdomen and Pelvis w/o [id number] 00:54:11Patient: JANIS PATTERSON Date/Time03/11/2020 00:41 CDTReason for ExamAbdominal painReportIndication: Nausea and vomiting for 2 days, upper abdominal painCOMPARISON: NoneTECHNIQUE: Axial images of the abdomen and pelvis were performed without theadministration of intravenous contrast material. Images were reformatted in the coronal and sagittalplane. CT scan was performed according to ALARA (as low as reasonably achievable) policy.FINDINGS: The lung bases are clear. The noncontrast appearance of the liver, gallbladder, spleen, adrenal glandsand pancreas is within normal limits. The kidneys are normal in appearance bilaterally without hydronephrosis or renal calculus. No ureteral or bladder calculus is appreciated. There is no abdominal aortic aneurysm.There is no free fluid in the pelvis. The noncontrast appearance of the uterus and ovaries is within normal limits. There is no bowel obstruction. There are scattered colonic diverticula without evidence for acute diverticulitis.. There is an appendicolith in the proximal appendix. The distal appendix is distended and fluid-filled, measuring up to 18 mm, with adjacent inflammatory change. No definitive perforation or periappendiceal abscess is appreciated. Bone windows through the abdomen and pelvis demonstrate no osseous destructive lesion.IMPRESSION:Acute appendicitis. No definite perforation or periappendiceal abscess.No urinary system calculus or hydronephrosis.RL: [id number]: [id number] findings were discussed with Dr. Bee, who expressed understanding, on 03/11/2020 at 00 56 Final Dictated by:Contributor_system, PSCRIBE_CTZDictated DT/TM: 03/11/2020 0:59 amSigned by: MD Le Margaret GSigned (Electronic Signature): 03/11/2020 0:54 amComprehensive Metabolic Panel 2020-03-10 23:18:17 Test Item Value Reference Range Interpretation Comments Sodium Level (test code = 139 mmol/L 136-145 Sodium Level) Potassium Level (test code = 4.5 mmol/L 3.5-5.1 Potassium Level) Chloride Level (test code = 104 mmol/L 98-107 Chloride Level) CO2 (test code = CO2) 28 mmol/L 21-32 Anion Gap (test code = Anion 7 mmol/L 7-16 Gap) BUN (test code = BUN) 17 mg/dL 7-18 Creatinine Level (test code = 1.0 mg/dL 0.6-1.0 Creatinine Level) Glucose Level (test code = 189 mg/dL 74-106 H Glucose Level) Calcium Level (test code = 9.4 mg/dL 8.5-10.1 Calcium Level) Alk Phos (test code = Alk 116 IntlUnit/L 50-136 Phos) Bilirubin Total (test code = 0.6 mg/dL 0.2-1.0 Bilirubin Total) Albumin Level (test code = 3.3 g/dL 3.4-5.0 L Albumin Level) Protein Total (test code = 8.1 g/dL 6.4-8.2 Protein Total) ALT (test code = ALT) 11 IntlUnit/L 12-78 L AST (test code = AST) 11 IntlUnit/L 15-37 L Lipase [id number] 23:18:17 Test Item Value Reference Range Interpretation Comments Lipase Level (test code = 373 IntlUnit/L 73-393 Lipase Level) Comprehensive Metabolic [id number] 23:18:17 Test Item Value Reference Range Interpretation Comments Sodium Level (test code = 139 mmol/L 136-145 Sodium Level) Potassium Level (test code 4.5 mmol/L 3.5-5.1 = Potassium Level) Chloride Level (test code 104 mmol/L 98-107 = Chloride Level) CO2 (test code = CO2) 28 mmol/L 21-32 Anion Gap (test code = 7 mmol/L 7-16 Anion Gap) BUN (test code = BUN) 17 mg/dL 7-18 Creatinine Level (test 1.0 mg/dL 0.6-1.0 code = Creatinine Level) Glucose Level (test code = 189 mg/dL 74-106 H Glucose Level) Calcium Level (test code = 9.4 mg/dL 8.5-10.1 Calcium Level) Alk Phos (test code = Alk 116 IntlUnit/L 50-136 Phos) Bilirubin Total (test code 0.6 mg/dL 0.2-1.0 = Bilirubin Total) Albumin Level (test code = 3.3 g/dL 3.4-5.0 L Albumin Level) Protein Total (test code = 8.1 g/dL 6.4-8.2 Protein Total) ALT (test code = ALT) 11 IntlUnit/L 12-78 L AST (test code = AST) 11 IntlUnit/L 15-37 L eGFR AA (test code = eGFR >60 mL/min/1.73 m2 N AA) Comprehensive Metabolic [id number] 23:18:17 Test Item Value Reference Range Interpretation Comments Sodium Level (test code = 139 mmol/L 136-145 Sodium Level) Potassium Level (test code 4.5 mmol/L 3.5-5.1 = Potassium Level) Chloride Level (test code 104 mmol/L 98-107 = Chloride Level) CO2 (test code = CO2) 28 mmol/L 21-32 Anion Gap (test code = 7 mmol/L 7-16 Anion Gap) BUN (test code = BUN) 17 mg/dL 7-18 Creatinine Level (test 1.0 mg/dL 0.6-1.0 code = Creatinine Level) Glucose Level (test code = 189 mg/dL 74-106 H Glucose Level) Calcium Level (test code = 9.4 mg/dL 8.5-10.1 Calcium Level) Alk Phos (test code = Alk 116 IntlUnit/L 50-136 Phos) Bilirubin Total (test code 0.6 mg/dL 0.2-1.0 = Bilirubin Total) Albumin Level (test code = 3.3 g/dL 3.4-5.0 L Albumin Level) Protein Total (test code = 8.1 g/dL 6.4-8.2 Protein Total) ALT (test code = ALT) 11 IntlUnit/L 12-78 L AST (test code = AST) 11 IntlUnit/L 15-37 L eGFR AA (test code = eGFR >60 mL/min/1.73 m2 N AA) eGFR Non-AA (test code = 57 mL/min/1.73 m2 N eGFR Non-AA) Complete Blood Count with [id number] 22:55:17 Test Item Value Reference Range Interpretation Comments WBC (test code = WBC) 12.5 x10 4.8-10.8 H RBC (test code = RBC) 3.77 x10 4.20-5.50 L Hgb (test code = Hgb) 10.4 g/dL 12.0-16.0 L MCV (test code = MCV) 86.3 fL 80.0-95.0 Hct (test code = Hct) 32.6 % 35.0-47.0 L RDW (test code = RDW) 14.6 % 11.5-14.5 H MCHC (test code = MCHC) 31.9 g/dL 31.0-36.0 MCH (test code = MCH) 27.5 pg 26.0-32.0 Platelets (test code = 417 x10 140-440 Platelets) MPV (test code = MPV) 8.7 fL 7.5-11.2 Slide Review (test code Auto N Resu lt created by = Slide Review) GL_SET_SLIDE _REVIEW_A UTO Automated [id number] 22:55:17 Test Item Value Reference Range Interpretation Comments Neutro Auto (test code = Neutro 82.2 % N Auto) Lymph Auto (test code = Lymph Auto) 11.8 % N [place] Auto (test code = [place] Auto) 5.1 % N Eos, Auto (test code = Eos, Auto) 0.3 % N Basophil Auto (test code = Basophil 0.6 % N Auto) Neutro Absolute (test code = Neutro 10.2 x10 2.7-7.3 H Absolute) Lymph Absolute (test code = Lymph 1.5 x10 0.8-3.5 Absolute) [place] Absolute (test code = [place] 0.6 x10 0.3-0.9 Absolute) Eos Absolute (test code = Eos 0.0 x10 0.0-0.3 Absolute) Baso Absolute (test code = Baso 0.1 x10 0.0-0.1 Absolute) [id number] 12:05:00[facility] [place], [place] [place] [id number] IMAGING REPORTPatient Name: JANIS PATTERSONte of Service: [id number]: 59 Sex: F Order #: [id number] Room: OPODOB: 1960 X-Ray Number: [id number] Record Number: [id number] Hospital Number: [id number] Physician: MITCHELL AMBROSIONDOrdering Physician: GARCIA AMBROSIOExam: Ultrasound thyroidHistory: Abnormal thyroid labsComparison: No comparison availableFindings:Right: The right lobe of the thyroid measures 1.8 x 4.7 x 1.9 cm. There aremultiple nodules in the right lobe of the thyroid. The largest is ahypoechoic nodule in the inferior pole of the right lobe of the thyroidthat measures 1.7 x 1.2x 1.2 cm.Left: The left lobe of the thyroid measures 2.4 x 4.9 x 2.1 cm. There aremultiple left-sided thyroid nodules. The largest is in the interpolarregion which measures approximately 1.6 x 1.1 x 1.4 cm. This contains someechogenic components. Small microcalcifications are not excluded. Thisnodule demonstrates a small amount of blood flow.The isthmus of the thyroid measures 0.8 cm. There is an echogenic nodule inthe isthmus which measures approximately 1 cm. In the right isthmus is ahypoechoic nodule which measures approximately 1.3 cm.Impression:There are bilateral thyroid nodules as above. Thelargest on the rightmeasures up to 1.7 cm and the largest on the left measures up to 1.6 cm.Further evaluation with histologic sampling is recommended.Electronically Signed By: Frederick Bueno M.D., 03/07/2020 12:03 PMLegally authenticated by DAVID RIGGS JR 2020-03-07 12:03:22PO [id number] 14:42:28 Test Item Value Reference Range Interpretation Comments Glucose POC (test 227 mg/dL 74-106 H POC Glucos e used on code = Glucose POC) critical ly ill patients is considered " off-label use" and has no t been cleared or appr zuly by the FDA. Altern ative testing methods should be considered i f the patient is crit ically ill. CT Angio Brain/[id number] 12:03:04Patient: JANIS PATTERSON Date/Time02/21/202011:39 CDTReason for ExamDizzinessReportHISTORY: Dizziness, stroke alertCT ANGIOGRAM BRAIN/NECK:COMPARISON: CT head of the same dayMultiple transverse images were obtained through the neck during rapid intravenous administration of 100 mL of Omnipaque 350 contrast material. Two-dimensional and three-dimensional reconstructions were performed. Radiation dose lowering techniques were used with automatedexposure control, adjusting the mA according to patient's size. Evaluation of internal carotid artery stenosis was performed in correlation with the distal internal carotid artery diameter.The intracranial portions of the internal carotid arteries are unremarkable.The middle and anterior cerebral arteries have a normal MRA appearance.The basilar and posterior cerebral arteries have a normal appearance. The cerebellar arteries are grossly unremarkable.No aneurysm is identified.The cerebral venous sinuses are unremarkable.No stenosis is demonstrated in the brachiocephalic arteries.Both vertebral arteries are equal in size and appear patent.On the right the common, internal, and external carotid arteries have a normal caliber.On the left the common, internal, and external carotid arteries have a normal caliber.Incidentally noted is a 12 mm nodular density in the periphery of the left upper lobe of the lung. This could be inflammatory in nature, but a follow- up chest CT in 2-4 weeks is suggested, if clinically warranted.IMPRESSION:1. No stenosis is demonstrated in the carotid or vertebral arteries.2. The intracranial vasculature is unremarkable.3. Small nodular density in the left upper lobe of the lung. Final Dictated by: MD Stevens Ramon JulioDictated DT/TM: 02/21/2020 12:00 pmSigned by: MD Stevens Ramon JulioSigned (Electronic Signature): 02/21/2020 12:03 pmCT Angio [id number] 12:03:04Patient: JANIS PATTERSON Date/Time02/21/202011:39 CDTReason for ExamConfusionReportHISTORY: Dizziness, stroke alertCT ANGIOGRAM BRAIN/NECK:COMPARISON: CT head of the same dayMultiple transverse images were obtained through the neck during rapid i ntravenous administration of 100 mL of Omnipaque 350 contrast material. Two- dimensional and three-dimensional reconstructions were performed. Radiation dose lowering techniques were used with automatedexposure control, adjusting the mA according to patient's size. Evaluation of internal carotid artery stenosis was performed in correlation with the distal internal carotid artery diameter.The intracranial portions of the internal carotid arteries are unremarkable.The middle and anterior cerebral arteries have a normal MRA appearance.The basilar and posterior cerebral arteries have a normal appearance. The cerebellar arteries are grossly unremarkable.No aneurysm is identified.The cerebral venous sinuses are unremarkable.No stenosis is demonstrated in the brachiocephalic arteries.Both vertebral arteries are equal in size and appear patent.On the right the common, internal, and external carotid arteries have a normal caliber.On the left the common, internal, and external carotid arteries have a normal caliber.Incidentally noted is a 12 mm nodular density in the periphery of the left upper lobe of the lung. This could be inflammatory in nature, but a follow-up chest CT in 2-4 weeks is suggested, if clinically warranted.IMPRESSION:1. No stenosis is demonstrated in the carotid or vertebral arteries.2. The intracranial vasculature is unremarkable.3. Small nodular density in the left upper lobe of the lung. Final Dictated by: MD Stevens Ramon JulioDictated DT/TM: 02/21/2020 12:00 pmSigned by: MD Stevens Ramon JulioSigned (Electronic Signature): 02/21/2020 12:03 pmPOC Glucose 2020-02-21 11:21:15 Test Item Value Reference Range Interpretation Comments Glucose POC (test 224 mg/dL 74-106 H POC Glucos e used on code = Glucose POC) critical ly ill patients is considered " off-label use" and has no t been cleared or appr zuly by the FDA. Altern ative testing methods should be considered i f the patient is crit ically ill. XR Chest 1 View [id number] 10:56:26Patient: JANIS PATTERSON Date/Time02/21/202010:19 CDTReason for ExamShortness of breathReportX-ray CHEST 1 VIEW FRONTAL:HISTORY: Shortness of breath, stroke alertCOMPARISON: 01/04/2020The cardiac silhouette is enlarged, with left ventricular prominence. The mediastinum shows no significant abnormality.There is mild pulmonary vascular engorgement. No confluent infiltrates are seen in the lungs.The bony architecture appears intact, where adequately seen.IMPRESSION:Mild cardiomegaly and pulmonary vascular congestion. Final Dictated by: MD Rodney, Barry GoldbergioDictated DT/TM: 02/21/2020 10:55 amSigned by: MD Rodney, Barry Sanchez (Electronic Signature): 02/21/2020 10:56 amComprehensive Metabolic [id number] 10:04:12 Test Item Value Reference Range Interpretation Comments Sodium Level (test code = 139 mmol/L 136-145 Sodium Level) Potassium Level (test code = 5.0 mmol/L 3.5-5.1 Potassium Level) Chloride Level (test code = 105 mmol/L 98-107 Chloride Level) CO2 (test code = CO2) 26 mmol/L 21-32 Anion Gap (test code = Anion 8 mmol/L 7-16 Gap) BUN (test code = BUN) 20 mg/dL 7-18 H Creatinine Level (test code = 1.1 mg/dL 0.6-1.0 H Creatinine Level) Glucose Level (test code = 220 mg/dL 74-106 H Glucose Level) Calcium Level (test code = 9.4 mg/dL 8.5-10.1 Calcium Level) Alk Phos (test code = Alk 119 IntlUnit/L 50-136 Phos) Bilirubin Total (test code = 0.3 mg/dL 0.2-1.0 Bilirubin Total) Albumin Level (test code = 3.2 g/dL 3.4-5.0 L Albumin Level) Protein Total (test code = 8.0 g/dL 6.4-8.2 Protein Total) ALT (test code = ALT) 13 IntlUnit/L 12-78 AST (test code = AST) 10 IntlUnit/L 15-37 L Troponin [id number] 10:04:12 Test Item Value Reference Range Interpretation Comments Troponin-I (test code = <0.015 ng/mL 0.010-0.040 Troponin-I) Lipid [id number] 10:04:12 Test Item Value Reference Range Interpretation Comments Cholesterol Total (test code = 149 mg/dL 0-200 Cholesterol Total) Triglycerides (test code = 127 mg/dL 2-150 Triglycerides) HDL (test code = HDL) 56 mg/dL 45-65 Chol/HDL (test code = Chol/HDL) 3 ratio 0-5 Magnesium [id number] 10:04:12 Test Item Value Reference Range Interpretation Comments Magnesium Level (test code = 1.3 mg/dL 1.6-2.6 L Magnesium Level) Comprehensive Metabolic [id number] 10:04:12 Test Item Value Reference Range Interpretation Comments Sodium Level (test code = 139 mmol/L 136-145 Sodium Level) Potassium Level (test code 5.0 mmol/L 3.5-5.1 = Potassium Level) Chloride Level (test code 105 mmol/L 98-107 = Chloride Level) CO2 (test code = CO2) 26 mmol/L 21-32 Anion Gap (test code = 8 mmol/L 7-16 Anion Gap) BUN (test code = BUN) 20 mg/dL 7-18 H Creatinine Level (test 1.1 mg/dL 0.6-1.0 H code = Creatinine Level) Glucose Level (test code = 220 mg/dL 74-106 H Glucose Level) Calcium Level (test code = 9.4 mg/dL 8.5-10.1 Calcium Level) Alk Phos (test code = Alk 119 IntlUnit/L 50-136 Phos) Bilirubin Total (test code 0.3 mg/dL 0.2-1.0 = Bilirubin Total) Albumin Level (test code = 3.2 g/dL 3.4-5.0 L Albumin Level) Protein Total (test code = 8.0 g/dL 6.4-8.2 Protein Total) ALT (test code = ALT) 13 IntlUnit/L 12-78 AST (test code = AST) 10 IntlUnit/L 15-37 L eGFR AA (test code = eGFR >60 mL/min/1.73 m2 N AA) Comprehensive Metabolic [id number] 10:04:12 Test Item Value Reference Range Interpretation Comments Sodium Level (test code = 139 mmol/L 136-145 Sodium Level) Potassium Level (test code 5.0 mmol/L 3.5-5.1 = Potassium Level) Chloride Level (test code 105 mmol/L 98-107 = Chloride Level) CO2 (test code = CO2) 26 mmol/L 21-32 Anion Gap (test code = 8 mmol/L 7-16 Anion Gap) BUN (test code = BUN) 20 mg/dL 7-18 H Creatinine Level (test 1.1 mg/dL 0.6-1.0 H code = Creatinine Level) Glucose Level (test code = 220 mg/dL 74-106 H Glucose Level) Calcium Level (test code = 9.4 mg/dL 8.5-10.1 Calcium Level) Alk Phos (test code = Alk 119 IntlUnit/L 50-136 Phos) Bilirubin Total (test code 0.3 mg/dL 0.2-1.0 = Bilirubin Total) Albumin Level (test code = 3.2 g/dL 3.4-5.0 L Albumin Level) Protein Total (test code = 8.0 g/dL 6.4-8.2 Protein Total) ALT (test code = ALT) 13 IntlUnit/L 12-78 AST (test code = AST) 10 IntlUnit/L 15-37 L eGFR AA (test code = eGFR >60 mL/min/1.73 m2 N AA) eGFR Non-AA (test code = 51 mL/min/1.73 m2 N eGFR Non-AA) Lipid [id number] 10:04:12 Test Item Value Reference Range Interpretation Comments Cholesterol Total (test 149 mg/dL 0-200 code = Cholesterol Total) Triglycerides (test 127 mg/dL 2-150 code = Triglycerides) HDL (test code = HDL) 56 mg/dL 45-65 LDL (test code = LDL) 68 mg/dL 1-99 The eq uation being used in this calculation is LDL = (Chol - HDL) - (Trig / 5) Chol/HDL (test code = 3 ratio 0-5 Chol/HDL) Prothrombin Time and [id number] 09:50:20 Test Item Value Reference Range Interpretation Comments Prothrombin Time (test code = 10.1 seconds 9.2-12.0 Prothrombin Time) INR (test code = INR) 1.0 ratio 0.9-1.2 Partial Thromboplastin [id number] 09:50:20 Test Item Value Reference Range Interpretation Comments Partial Thromboplastin 27.5 seconds 24.0-35.0 APTT Heparin Time (test code = Therapeuti c Range: Partial Thromboplastin 47.9- 80.4 seconds Time) Complete Blood Count with [id number] 09:49:12 Test Item Value Reference Range Interpretation Comments WBC (test code = WBC) 11.4 x10 4.8-10.8 H RBC (test code = RBC) 3.83 x10 4.20-5.50 L Hgb (test code = Hgb) 10.7 g/dL 12.0-16.0 L Hct (test code = Hct) 33.3 % 35.0-47.0 L MCV (test code = MCV) 86.8 fL 80.0-95.0 RDW (test code = RDW) 14.6 % 11.5-14.5 H MCHC (test code = MCHC) 32.1 g/dL 31.0-36.0 MCH (test code = MCH) 27.9 pg 26.0-32.0 Platelets (test code = 432 x10 140-440 Platelets) MPV (test code = MPV) 8.9 fL 7.5-11.2 Slide Review (test code Auto N Resu lt created by = Slide Review) GL_SET_SLIDE _REVIEW_A UTO Automated [id number] 09:49:12 Test Item Value Reference Range Interpretation Comments Neutro Auto (test code = Neutro Auto) 61.8 % N Lymph Auto (test code = Lymph Auto) 30.0 % N [place] Auto (test code = [place] Auto) 5.0 % N Eos, Auto (test code = Eos, Auto) 2.6 % N Basophil Auto (test code = Basophil 0.6 % N Auto) Neutro Absolute (test code = Neutro 7.0 x10 2.7-7.3 Absolute) Lymph Absolute (test code = Lymph 3.4 x10 0.8-3.5 Absolute) [place] Absolute (test code = [place] 0.6 x10 0.3-0.9 Absolute) Eos Absolute (test code = Eos 0.3 x10 0.0-0.3 Absolute) Baso Absolute (test code = Baso 0.1 x10 0.0-0.1 Absolute) CT Brain/Head w/o [id number] 09:41:26Patient: JANIS PATTERSON Date/Time02/21/202009:21 CDTReason for ExamAltered level of consciousnessReportCT HEAD WITHOUT CONTRAST:HISTORY: Altered level of consciousness, stroke alertCOMPARISON: NoneMultiple transverse images were obtained through the head. Radiation reduction was achieved by using the radiographic principal of ALARA.There is a small area of encephalomalacia at the left frontoparietal junction. No other abnormal areas of density are seen in the brain. The ventricular system has a normal appearance.No evidence of hemorrhage, mass or acute infarction is observed.The paranasal sinuses and mastoid air cells are well aerated.IMPRESSION:1. Small area of encephalomalacia in the left frontoparietal junction that can represent a nonrecent ischemic infarct.2. No definite acute abnormality is demonstrated.A Critical Direct Communication message has been discussed with Phu Head and documented in the [employer] ePrint system on 02/21/2020 9:41 AM, Message ID [id number]. Final Dictated by: MD Stevens Ramon JulioDictated DT/TM: 02/21/2020 9:38 amSigned by: MD Stevens Ramon JulioSigned (Electronic Sign ature): 02/21/2020 9:41 amPOC Troponin [id number] 09:21:16 Test Item Value Reference Range Interpretation Comments Troponin I, POC 0.01 ng/mL 0.00-0.08 0.6-1.9 ng/m l may indicate (test code = Myocardial Maribell ge2.0 ng/ml Troponin I, POC) is the diag nostic cutoff for Myocardial Damage. When diagnosing AMI, look for the serial rise and fall of Troponi Yosvany conditions resu lting in myocardial cell damage can potentiallyincr ease cardiac Troponin I leve ls. These conditions incl ude, butare not limited to: angina, unstable angina , congestive heart faillure, myocarditis, cardiac surgery , or invasive testin g.Serial sampling as ede ropriate is recommended to detect the temporalrise an d fall of troponin levels .For diagnostic purp oses, the Troponin I resu lts should be used inconju nction with other informati on such as EKG, CKMB, clinicalobserva tions, symptons, etc. POC [id number] 12:28:18 Test Item Value Reference Range Interpretation Comments Glucose POC (test 212 mg/dL 74-106 H POC Glucos e used on code = Glucose POC) critical ly ill patients is considered " off-label use" and has no t been cleared or appr zuly by the FDA. Altern ative testing methods should be considered i f the patient is crit ically ill. POC [id number] 07:20:41 Test Item Value Reference Range Interpretation Comments Glucose POC (test 252 mg/dL 74-106 H POC Glucos e used on code = Glucose POC) critical ly ill patients is considered " off-label use" and has no t been cleared or appr zuly by the FDA. Altern ative testing methods should be considered i f the patient is crit ically ill. Comprehensive Metabolic [id number] 04:31:16 Test Item Value Reference Range Interpretation Comments Sodium Level (test code = 138 mmol/L 136-145 Sodium Level) Potassium Level (test code = 4.9 mmol/L 3.5-5.1 Potassium Level) Chloride Level (test code = 105 mmol/L 98-107 Chloride Level) CO2 (test code = CO2) 28 mmol/L 21-32 Anion Gap (test code = Anion 5 mmol/L 7-16 L Gap) BUN (test code = BUN) 31 mg/dL 7-18 H Creatinine Level (test code = 1.6 mg/dL 0.6-1.0 H Creatinine Level) Glucose Level (test code = 255 mg/dL 74-106 H Glucose Level) Calcium Level (test code = 9.3 mg/dL 8.5-10.1 Calcium Level) Alk Phos (test code = Alk 127 IntlUnit/L 50-136 Phos) Bilirubin Total (test code = 0.3 mg/dL 0.2-1.0 Bilirubin Total) Albumin Level (test code = 3.3 g/dL 3.4-5.0 L Albumin Level) Protein Total (test code = 8.4 g/dL 6.4-8.2 H Protein Total) ALT (test code = ALT) 14 IntlUnit/L 12-78 AST (test code = AST) 9 IntlUnit/L 15-37 L Comprehensive Metabolic [id number] 04:31:16 Test Item Value Reference Range Interpretation Comments Sodium Level (test code = 138 mmol/L 136-145 Sodium Level) Potassium Level (test code 4.9 mmol/L 3.5-5.1 = Potassium Level) Chloride Level (test code = 105 mmol/L 98-107 Chloride Level) CO2 (test code = CO2) 28 mmol/L 21-32 Anion Gap (test code = 5 mmol/L 7-16 L Anion Gap) BUN (test code = BUN) 31 mg/dL 7-18 H Creatinine Level (test code 1.6 mg/dL 0.6-1.0 H = Creatinine Level) Glucose Level (test code = 255 mg/dL 74-106 H Glucose Level) Calcium Level (test code = 9.3 mg/dL 8.5-10.1 Calcium Level) Alk Phos (test code = Alk 127 IntlUnit/L 50-136 Phos) Bilirubin Total (test code 0.3 mg/dL 0.2-1.0 = Bilirubin Total) Albumin Level (test code = 3.3 g/dL 3.4-5.0 L Albumin Level) Protein Total (test code = 8.4 g/dL 6.4-8.2 H Protein Total) ALT (test code = ALT) 14 IntlUnit/L 12-78 AST (test code = AST) 9 IntlUnit/L 15-37 L eGFR AA (test code = eGFR 40 mL/min/1.73 m2 N AA) Comprehensive Metabolic [id number] 04:31:16 Test Item Value Reference Range Interpretation Comments Sodium Level (test code = 138 mmol/L 136-145 Sodium Level) Potassium Level (test code 4.9 mmol/L 3.5-5.1 = Potassium Level) Chloride Level (test code = 105 mmol/L 98-107 Chloride Level) CO2 (test code = CO2) 28 mmol/L 21-32 Anion Gap (test code = 5 mmol/L 7-16 L Anion Gap) BUN (test code = BUN) 31 mg/dL 7-18 H Creatinine Level (test code 1.6 mg/dL 0.6-1.0 H = Creatinine Level) Glucose Level (test code = 255 mg/dL 74-106 H Glucose Level) Calcium Level (test code = 9.3 mg/dL 8.5-10.1 Calcium Level) Alk Phos (test code = Alk 127 IntlUnit/L 50-136 Phos) Bilirubin Total (test code 0.3 mg/dL 0.2-1.0 = Bilirubin Total) Albumin Level (test code = 3.3 g/dL 3.4-5.0 L Albumin Level) Protein Total (test code = 8.4 g/dL 6.4-8.2 H Protein Total) ALT (test code = ALT) 14 IntlUnit/L 12-78 AST (test code = AST) 9 IntlUnit/L 15-37 L eGFR AA (test code = eGFR 40 mL/min/1.73 m2 N AA) eGFR Non-AA (test code = 33 mL/min/1.73 m2 N eGFR Non-AA) Complete Blood Count with [id number] 04:06:22 Test Item Value Reference Range Interpretation Comments WBC (test code = WBC) 16.6 x10 4.8-10.8 H RBC (test code = RBC) 3.82 x10 4.20-5.50 L Hgb (test code = Hgb) 10.4 g/dL 12.0-16.0 L Hct (test code = Hct) 33.1 % 35.0-47.0 L MCV (test code = MCV) 86.6 fL 80.0-95.0 MCHC (test code = MCHC) 31.4 g/dL 31.0-36.0 RDW (test code = RDW) 14.3 % 11.5-14.5 MCH (test code = MCH) 27.2 pg 26.0-32.0 Platelets (test code = 353 x10 140-440 Platelets) MPV (test code = MPV) 9.0 fL 7.5-11.2 Slide Review (test code Auto N Resu lt created by = Slide Review) GL_SET_SLIDE _REVIEW_A UTO Automated [id number] 04:06:22 Test Item Value Reference Range Interpretation Comments Neutro Auto (test code = Neutro 85.1 % N Auto) Lymph Auto (test code = Lymph Auto) 9.8 % N [place] Auto (test code = [place] Auto) 5.0 % N Basophil Auto (test code = Basophil 0.1 % N Auto) Neutro Absolute (test code = Neutro 14.1 x10 2.7-7.3 H Absolute) Lymph Absolute (test code = Lymph 1.6 x10 0.8-3.5 Absolute) [place] Absolute (test code = [place] 0.8 x10 0.3-0.9 Absolute) Eos Absolute (test code = Eos 0.0 x10 0.0-0.3 Absolute) Baso Absolute (test code = Baso 0.0 x10 0.0-0.1 Absolute) POC [id number] 21:38:32 Test Item Value Reference Range Interpretation Comments Glucose POC (test 340 mg/dL 74-106 H POC Glucos e used on code = Glucose POC) critical ly ill patients is considered " off-label use" and has no t been cleared or appr zuly by the FDA. Altern ative testing methods should be considered i f the patient is crit ically ill. POC [id number] 21:38:31 Test Item Value Reference Range Interpretation Comments Glucose POC (test 255 mg/dL 74-106 H POC Glucos e used on code = Glucose POC) critical ly ill patients is considered " off-label use" and has no t been cleared or appr zuly by the FDA. Altern ative testing methods should be considered i f the patient is crit ically ill. POC [id number] 12:28:25 Test Item Value Reference Range Interpretation Comments Glucose POC (test 330 mg/dL 74-106 H POC Glucos e used on code = Glucose POC) critical ly ill patients is considered " off-label use" and has no t been cleared or appr zuly by the FDA. Altern ative testing methods should be considered i f the patient is crit ically ill. POC [id number] 11:53:50 Test Item Value Reference Range Interpretation Comments Glucose POC (test 254 mg/dL 74-106 H POC Glucos e used on code = Glucose POC) critical ly ill patients is considered " off-label use" and has no t been cleared or appr zuly by the FDA. Altern ative testing methods should be considered i f the patient is crit ically ill. XR Chest 1 View [id number] 11:38:51Patient: JANIS PATTERSON Date/Time01/04/2020 04:55 CSTReason for ExamChest painReportChest single viewHISTORY: Left-sided chest pain, hypertensionCOMPARISON: 05/04/2019TECHNIQUE: Portable AP view provided.FINDINGS: Heart size and vascular markings unchanged allowing for degree of inspiration. No focal consolidation or acute pleural abnormality. Bony thorax intact where visualized.IMPRESSION: No active cardiopulmonary process. Final Dic tated by: MD Ramiro, OrenDictated DT/TM: 01/04/2020 7:29 amSigned by: MD Ramiro, OrenSigndebby (Electronic Signature): 01/04/2020 11:38 amTroponin I 2020-01-04 10:40:12 Test Item Value Reference Range Interpretation Comments Troponin-I (test code = <0.015 ng/mL 0.010-0.040 Troponin-I) Troponin [id number] 08:09:07 Test Item Value Reference Range Interpretation Comments Troponin-I (test code = <0.015 ng/mL 0.010-0.040 Troponin-I) CT Angio [id number] 05:30:07Patient: JANIS PATTERSON Date/Time01/04/2020 05:21 CSTReason for ExamChest painReportCTA CHEST WITH IV CONTRASTORDERING PHYSICIAN: Zachary Santiago VigilHISTORY: Acute chest painCOMPARISON: 05/28/2017TECHNIQUE: CTA of the chest with IV contrast. Standard and 3D and coronal MIP reconstructions performed. CT scan performed according to ALARA (As lowas reasonably achievable) principles.FINDINGS:Heart size is upper limits of normal. Thoracic aorta is normal. No aneurysm. No dissection. No pulmonary embolism. Cirrhotic liver in the upper abdomen is stable. Bilateral lower lobe atelectasis is identified. Stable focal groundglass opacity in the left upper lobe, measuring 8 mm. This has been stable since May 2017. No suspicious pulmonary nodules.IMPRESSION:No pulmonary embolismNormal thoracic aortaBilateral dependent atelectasis. No focal consolidation or effusionsStable mild hepatic cirrhosisRL: 5252 Final Dictated by: Contributor_system, PSCRIBE_CTZDictated DT/TM: 01/04/2020 5:37 amSigned by: MD Ruperto, Miguel Akhtar (Electronic Signature): 01/04/2020 5:30 am Complete Blood Count with [id number] 04:41:14 Test Item Value Reference Range Interpretation Comments WBC (test code = WBC) 11.6 x10 4.8-10.8 H RBC (test code = RBC) 3.85 x10 4.20-5.50 L Hgb (test code = Hgb) 10.8 g/dL 12.0-16.0 L Hct (test code = Hct) 35.1 % 35.0-47.0 MCV (test code = MCV) 91.3 fL 80.0-95.0 MCHC (test code = MCHC) 30.8 g/dL 31.0-36.0 L RDW (test code = RDW) 14.6 % 11.5-14.5 H MCH (test code = MCH) 28.1 pg 26.0-32.0 Platelets (test code = 348 x10 140-440 Platelets) MPV (test code = MPV) 8.9 fL 7.5-11.2 Slide Review (test code Auto N Resu lt created by = Slide Review) GL_SET_SLIDE _REVIEW_A UTO Automated [id number] 04:41:14 Test Item Value Reference Range Interpretation Comments Neutro Auto (test code = Neutro Auto) 50.8 % N Lymph Auto (test code = Lymph Auto) 40.4 % N [place] Auto (test code = [place] Auto) 5.0 % N Eos, Auto (test code = Eos, Auto) 3.0 % N Basophil Auto (test code = Basophil 0.8 % N Auto) Neutro Absolute (test code = Neutro 5.9 x10 2.7-7.3 Absolute) Lymph Absolute (test code = Lymph 4.7 x10 0.8-3.5 H Absolute) [place] Absolute (test code = [place] 0.6 x10 0.3-0.9 Absolute) Eos Absolute (test code = Eos 0.4 x10 0.0-0.3 H Absolute) Baso Absolute (test code = Baso 0.1 x10 0.0-0.1 Absolute) Comprehensive Metabolic [id number] 04:37:09 Test Item Value Reference Range Interpretation Comments Sodium Level (test code = 140 mmol/L 136-145 Sodium Level) Potassium Level (test code = 4.5 mmol/L 3.5-5.1 Potassium Level) Chloride Level (test code = 106 mmol/L 98-107 Chloride Level) CO2 (test code = CO2) 29 mmol/L 21-32 Anion Gap (test code = Anion 5 mmol/L 7-16 L Gap) BUN (test code = BUN) 23 mg/dL 7-18 H Creatinine Level (test code = 1.2 mg/dL 0.6-1.0 H Creatinine Level) Glucose Level (test code = 169 mg/dL 74-106 H Glucose Level) Calcium Level (test code = 8.9 mg/dL 8.5-10.1 Calcium Level) Alk Phos (test code = Alk 135 IntlUnit/L 50-136 Phos) Bilirubin Total (test code = 0.4 mg/dL 0.2-1.0 Bilirubin Total) Albumin Level (test code = 3.3 g/dL 3.4-5.0 L Albumin Level) Protein Total (test code = 8.3 g/dL 6.4-8.2 H Protein Total) ALT (test code = ALT) 14 IntlUnit/L 12-78 AST (test code = AST) 16 IntlUnit/L 15-37 Pro B Natriuretic [id number] 04:37:09 Test Item Value Reference Range Interpretation Comments NT-proBNP (test 75 pg/mL 0-125 < 300 pg/ml - heart code = NT-proBNP) failure un likelyAge less than 50 years, > 450 pg/ml - heart f ailure lilkelyAge 50 - 75 years, > 900 pg/ml - h eart failure likelyA ge greater than 75 years, > 1800 pg/ml - heart f ailure likely Comprehensive Metabolic [id number] 04:37:09 Test Item Value Reference Range Interpretation Comments Sodium Level (test code = 140 mmol/L 136-145 Sodium Level) Potassium Level (test code 4.5 mmol/L 3.5-5.1 = Potassium Level) Chloride Level (test code = 106 mmol/L 98-107 Chloride Level) CO2 (test code = CO2) 29 mmol/L 21-32 Anion Gap (test code = 5 mmol/L 7-16 L Anion Gap) BUN (test code = BUN) 23 mg/dL 7-18 H Creatinine Level (test code 1.2 mg/dL 0.6-1.0 H = Creatinine Level) Glucose Level (test code = 169 mg/dL 74-106 H Glucose Level) Calcium Level (test code = 8.9 mg/dL 8.5-10.1 Calcium Level) Alk Phos (test code = Alk 135 IntlUnit/L 50-136 Phos) Bilirubin Total (test code 0.4 mg/dL 0.2-1.0 = Bilirubin Total) Albumin Level (test code = 3.3 g/dL 3.4-5.0 L Albumin Level) Protein Total (test code = 8.3 g/dL 6.4-8.2 H Protein Total) ALT (test code = ALT) 14 IntlUnit/L 12-78 AST (test code = AST) 16 IntlUnit/L 15-37 eGFR AA (test code = eGFR 56 mL/min/1.73 m2 N AA) Comprehensive Metabolic [id number] 04:37:09 Test Item Value Reference Range Interpretation Comments Sodium Level (test code = 140 mmol/L 136-145 Sodium Level) Potassium Level (test code 4.5 mmol/L 3.5-5.1 = Potassium Level) Chloride Level (test code = 106 mmol/L 98-107 Chloride Level) CO2 (test code = CO2) 29 mmol/L 21-32 Anion Gap (test code = 5 mmol/L 7-16 L Anion Gap) BUN (test code = BUN) 23 mg/dL 7-18 H Creatinine Level (test code 1.2 mg/dL 0.6-1.0 H = Creatinine Level) Glucose Level (test code = 169 mg/dL 74-106 H Glucose Level) Calcium Level (test code = 8.9 mg/dL 8.5-10.1 Calcium Level) Alk Phos (test code = Alk 135 IntlUnit/L 50-136 Phos) Bilirubin Total (test code 0.4 mg/dL 0.2-1.0 = Bilirubin Total) Albumin Level (test code = 3.3 g/dL 3.4-5.0 L Albumin Level) Protein Total (test code = 8.3 g/dL 6.4-8.2 H Protein Total) ALT (test code = ALT) 14 IntlUnit/L 12-78 AST (test code = AST) 16 IntlUnit/L 15-37 eGFR AA (test code = eGFR 56 mL/min/1.73 m2 N AA) eGFR Non-AA (test code = 46 mL/min/1.73 m2 N eGFR Non-AA) Prothrombin Time and [id number] 04:29:09 Test Item Value Reference Range Interpretation Comments Prothrombin Time (test code = 10.2 seconds 9.2-12.0 Prothrombin Time) INR (test code = INR) 1.0 ratio 0.9-1.2 Partial Thromboplastin [id number] 04:29:09 Test Item Value Reference Range Interpretation Comments Partial Thromboplastin 24.2 seconds 24.0-35.0 APTT Heparin Time (test code = Therapeuti c Range: Partial Thromboplastin 47.9- 80.4 seconds Time) D-Dimer [id number] 04:29:09 Test Item Value Reference Range Interpretation Comments D Dimer, 1.68 mg/L FEU .19-.50 H The D-Dimer as say is (Quant.) (test intended for use as an code = D Dimer, aid in the d iagnosis of (Quant.)) Deep Vein Thrombosis(DVT) or Pulmonary Embol ism(PE) except in patie nts with the following: *Therapeutic do se anticoagulant t herapy for >24 hours *Fibrinolytic t herapy within previous 7 days *Trauma or rand rgery within previous 4 weeks *Disseminate d malignancies *Aortic aneurysm *S epsis, severe infectio ns, pneumonia, rock re skin infections *Cirrhosis * A cu t-off value of <0.5 m g/L FEU makes a diagnos is of DVT or PEunlikely. POC Troponin [id number] 04:11:54 Test Item Value Reference Range Interpretation Comments Troponin I, POC 0.00 ng/mL 0.00-0.08 0.6-1.9 ng/m l may indicate (test code = Myocardial Maribell ge2.0 ng/ml Troponin I, POC) is the diag nostic cutoff for Myocardial Damage. When diagnosing AMI, look for the serial rise and fall of Troponi Yosvany conditions resu lting in myocardial cell damage can potentiallyincr ease cardiac Troponin I leve ls. These conditions incl ude, butare not limited to: angina, unstable angina , congestive heart faillure, myocarditis, cardiac surgery , or invasive testin g.Serial sampling as ede ropriate is recommended to detect the temporalrise an d fall of troponin levels .For diagnostic purp oses, the Troponin I resu lts should be used inconju nction with other informati on such as EKG, CKMB, clinicalobserva tions, symptons, etc. XR Knee 3 Views [id number] 10:51:31Patient: JANIS PATTERSON Date/Time06/30/2019 10:38 CDTReason for Examright knee painReportRight knee 3 views:CLINICAL HISTORY: Post total knee.CO MPARISON: May 10, 2019 postoperative images, and preoperative images dated May 04, 2019.AP, lateral views of the knee, and sunrise view of the patella were obtained. Patient is post right total knee.The tibial and femoral components are well seated showing anatomic alignment. No findings were identified to suggest loosening. Bony structures are osteopenic. Cystic areas are seen within the medial aspect of the proximal tibia unchanged from preoperative images.IMPRESSION:1. Post right total knee. Anatomic alignment is noted and alignment is unchanged from postoperative images dated May 10, 2019. Final Dictated by: MD Simpson Arthur LDictated DT/TM: 06/30/2019 10:49 amSigned by: MD Simpson Arthur LSigned (Electronic Signature): 06/30/2019 10:51 amPOC [id number] 13:27:29 Test Item Value Reference Range Interpretation Comments Glucose POC (test 237 mg/dL 74-106 H POC Glucos e used on code = Glucose POC) critical ly ill patients is considered " off-label use" and has no t been cleared or appr zuly by the FDA. Altern ative testing methods should be considered i f the patient is crit ically ill. Complete Blood Count with [id number] 06:43:46 Test Item Value Reference Range Interpretation Comments WBC (test code = WBC) 12.7 x10 4.8-10.8 H RBC (test code = RBC) 3.11 x10 4.20-5.50 L Hgb (test code = Hgb) 8.7 g/dL 12.0-16.0 L Hct (test code = Hct) 27.0 % 35.0-47.0 L MCV (test code = MCV) 86.9 fL 80.0-95.0 RDW (test code = RDW) 15.0 % 11.5-14.5 H MCHC (test code = MCHC) 32.1 g/dL 31.0-36.0 MCH (test code = MCH) 27.9 pg 26.0-32.0 Platelets (test code = 301 x10 140-440 Platelets) MPV (test code = MPV) 8.8 fL 7.5-11.2 Slide Review (test code Auto N Resu lt created by = Slide Review) GL_SET_SLIDE _REVIEW_A UTO Automated [id number] 06:43:46 Test Item Value Reference Range Interpretation Comments Neutro Auto (test code = Neutro Auto) 68.5 % N Lymph Auto (test code = Lymph Auto) 21.0 % N [place] Auto (test code = [place] Auto) 9.0 % N Eos, Auto (test code = Eos, Auto) 1.3 % N Basophil Auto (test code = Basophil 0.2 % N Auto) Neutro Absolute (test code = Neutro 8.7 x10 2.7-7.3 H Absolute) Lymph Absolute (test code = Lymph 2.7 x10 0.8-3.5 Absolute) [place] Absolute (test code = [place] 1.1 x10 0.3-0.9 H Absolute) Eos Absolute (test code = Eos 0.2 x10 0.0-0.3 Absolute) Baso Absolute (test code = Baso 0.0 x10 0.0-0.1 Absolute) POC [id number] 05:48:52 Test Item Value Reference Range Interpretation Comments Glucose POC (test 173 mg/dL 74-106 H POC Glucos e used on code = Glucose POC) critical ly ill patients is considered " off-label use" and has no t been cleared or appr zuly by the FDA. Altern ative testing methods should be considered i f the patient is crit ically ill. POC [id number] 20:37:22 Test Item Value Reference Range Interpretation Comments Glucose POC (test 217 mg/dL 74-106 H POC Glucos e used on code = Glucose POC) critical ly ill patients is considered " off-label use" and has no t been cleared or appr zuly by the FDA. Altern ative testing methods should be considered i f the patient is crit ically ill. POC [id number] 16:38:05 Test Item Value Reference Range Interpretation Comments Glucose POC (test 126 mg/dL 74-106 H POC Glucos e used on code = Glucose POC) critical ly ill patients is considered " off-label use" and has no t been cleared or appr zuly by the FDA. Altern ative testing methods should be considered i f the patient is crit ically ill. POC [id number] 11:01:37 Test Item Value Reference Range Interpretation Comments Glucose POC (test 256 mg/dL 74-106 H POC Glucos e used on code = Glucose POC) critical ly ill patients is considered " off-label use" and has no t been cleared or appr zuly by the FDA. Altern ative testing methods should be considered i f the patient is crit ically ill. Basic Metabolic [id number] 08:13:13 Test Item Value Reference Range Interpretation Comments Sodium Level (test code = Sodium 138 mmol/L 136-145 Level) Potassium Level (test code = 4.6 mmol/L 3.5-5.1 Potassium Level) Chloride Level (test code = 105 mmol/L 98-107 Chloride Level) CO2 (test code = CO2) 27 mmol/L 21-32 Anion Gap (test code = Anion Gap) 6 mmol/L 7-16 L BUN (test code = BUN) 20 mg/dL 7-18 H Creatinine Level (test code = 1.2 mg/dL 0.6-1.0 H Creatinine Level) Glucose Level (test code = Glucose 169 mg/dL 74-106 H Level) Calcium Level (test code = Calcium 8.0 mg/dL 8.5-10.1 L Level) Basic Metabolic [id number] 08:13:13 Test Item Value Reference Range Interpretation Comments Sodium Level (test code = 138 mmol/L 136-145 Sodium Level) Potassium Level (test code 4.6 mmol/L 3.5-5.1 = Potassium Level) Chloride Level (test code = 105 mmol/L 98-107 Chloride Level) CO2 (test code = CO2) 27 mmol/L 21-32 Anion Gap (test code = 6 mmol/L 7-16 L Anion Gap) BUN (test code = BUN) 20 mg/dL 7-18 H Creatinine Level (test code 1.2 mg/dL 0.6-1.0 H = Creatinine Level) Glucose Level (test code = 169 mg/dL 74-106 H Glucose Level) Calcium Level (test code = 8.0 mg/dL 8.5-10.1 L Calcium Level) eGFR AA (test code = eGFR 56 mL/min/1.73 m2 N AA) eGFR Non-AA (test code = 46 mL/min/1.73 m2 N eGFR Non-AA) Basic Metabolic [id number] 08:13:13 Test Item Value Reference Range Interpretation Comments Sodium Level (test code = 138 mmol/L 136-145 Sodium Level) Potassium Level (test code 4.6 mmol/L 3.5-5.1 = Potassium Level) Chloride Level (test code = 105 mmol/L 98-107 Chloride Level) CO2 (test code = CO2) 27 mmol/L 21-32 Anion Gap (test code = 6 mmol/L 7-16 L Anion Gap) BUN (test code = BUN) 20 mg/dL 7-18 H Creatinine Level (test code 1.2 mg/dL 0.6-1.0 H = Creatinine Level) Glucose Level (test code = 169 mg/dL 74-106 H Glucose Level) Calcium Level (test code = 8.0 mg/dL 8.5-10.1 L Calcium Level) eGFR AA (test code = eGFR 56 mL/min/1.73 m2 N AA) eGFR Non-AA (test code = 46 mL/min/1.73 m2 N eGFR Non-AA) Complete Blood Count with [id number] 07:55:58 Test Item Value Reference Range Interpretation Comments WBC (test code = WBC) 10.8 x10 4.8-10.8 RBC (test code = RBC) 3.30 x10 4.20-5.50 L Hgb (test code = Hgb) 9.3 g/dL 12.0-16.0 L MCV (test code = MCV) 87.7 fL 80.0-95.0 Hct (test code = Hct) 28.9 % 35.0-47.0 L RDW (test code = RDW) 15.2 % 11.5-14.5 H MCHC (test code = MCHC) 32.3 g/dL 31.0-36.0 MCH (test code = MCH) 28.3 pg 26.0-32.0 Platelets (test code = 326 x10 140-440 Platelets) MPV (test code = MPV) 8.6 fL 7.5-11.2 Slide Review (test code Auto N Resu lt created by = Slide Review) GL_SET_SLIDE _REVIEW_A UTO Automated [id number] 07:55:58 Test Item Value Reference Range Interpretation Comments Neutro Auto (test code = Neutro Auto) 63.9 % N Lymph Auto (test code = Lymph Auto) 26.5 % N [place] Auto (test code = [place] Auto) 7.7 % N Eos, Auto (test code = Eos, Auto) 1.4 % N Basophil Auto (test code = Basophil 0.5 % N Auto) Neutro Absolute (test code = Neutro 6.9 x10 2.7-7.3 Absolute) Lymph Absolute (test code = Lymph 2.9 x10 0.8-3.5 Absolute) [place] Absolute (test code = [place] 0.8 x10 0.3-0.9 Absolute) Eos Absolute (test code = Eos 0.2 x10 0.0-0.3 Absolute) Baso Absolute (test code = Baso 0.1 x10 0.0-0.1 Absolute) POC [id number] 07:06:01 Test Item Value Reference Range Interpretation Comments Glucose POC (test 161 mg/dL 74-106 H POC Glucos e used on code = Glucose POC) critical ly ill patients is considered " off-label use" and has no t been cleared or appr zuly by the FDA. Altern ative testing methods should be considered i f the patient is crit ically ill. POC [id number] 20:37:15 Test Item Value Reference Range Interpretation Comments Glucose POC (test 139 mg/dL 74-106 H POC Glucos e used on code = Glucose POC) critical ly ill patients is considered " off-label use" and has no t been cleared or appr zuly by the FDA. Altern ative testing methods should be considered i f the patient is crit ically ill. POC [id number] 15:32:22 Test Item Value Reference Range Interpretation Comments Glucose POC (test 147 mg/dL 74-106 H POC Glucos e used on code = Glucose POC) critical ly ill patients is considered " off-label use" and has no t been cleared or appr zuly by the FDA. Altern ative testing methods should be considered i f the patient is crit ically ill. POC [id number] 12:58:00 Test Item Value Reference Range Interpretation Comments Glucose POC (test 173 mg/dL 74-106 H POC Glucos e used on code = Glucose POC) critical ly ill patients is considered " off-label use" and has no t been cleared or appr zuly by the FDA. Altern ative testing methods should be considered i f the patient is crit ically ill. XR Knee 1 or 2 Views [id number] 10:42:14Patient: JANIS PATTERSON Date/Time05/10/2019 10:29 CDTReason for ExamArthroplastyReportInformation: Right total knee arthroplasty follow-up evaluationRight knee 2 viewsIn comparison to the prior views of the right knee a right total knee prostheses in anatomic alignment and position is now identified. Post surgical changes of the soft tissues and surgical skin clips are noted.IMPRESSION:1. Right total knee arthroplasty as described above.Final Dictated by: MD Franco Gustavo MDictated DT/TM: 05/10/2019 10:40 amSigned by: MD Franco Gustavo MSigned (Electronic Signature): 05/10/2019 10:42 amPOC [id number] 06:32:30 Test Item Value Reference Range Interpretation Comments Glucose POC (test 177 mg/dL 74-106 H POC Glucos e used on code = Glucose POC) critical ly ill patients is considered " off-label use" and has no t been cleared or appr zuly by the FDA. Altern ative testing methods should be considered i f the patient is crit ically ill. Red Blood Cells [id number] 17:06:46 Test Item Value Reference Range Interpretation Comments # of Units (test code = # of Units) 2 N RBC Trn Reason (test code = RBC Trn Surgery N Reason) RBC Product Ready (test code = RBC RBC Ready Product Ready) ABORh [id number] 16:57:21 Test Item Value Reference Range Interpretation Comments Methodology (test code = Test-Tube(TT) Methodology) Anti-A (test code = Anti-A) 4+ Anti-B (test code = Anti-B) 4+ Anti-AB (test code = Anti-AB) NT Anti-D (test code = Anti-D) 4+ ABORh Retype (test code = ABORh AB POS Retype) [id number] 14:41:14 Test Item Value Reference Range Interpretation Comments Previous History (test code No Prev History = Previous History) BBID (test code = BBID) [id number] Methodology (test code = Ortho-Vision(OV) Methodology) Anti-A (test code = Anti-A) 4+ Anti-B (test code = Anti-B) 4+ Anti-D (test code = Anti-D) 4+ DCon (test code = DCon) 0 A1 (test code = A1) 0 B cells (test code = B 0 cells) ABORh (test code = ABORh) AB POS 2C [id number] 14:41:14 Test Item Value Reference Range Interpretation Comments Methodology (test code = Ortho-Vision(OV) Methodology) SC1 (test code = SC1) 0 SC2 (test code = SC2) 0 Antibody Screen (2C) (test Negative ABSC code = Antibody Screen (2C)) Urine [id number] 07:25:17 Test Item Value Reference Range Interpretation Comments ORGANISM (test code = Escherichia coli ORGANISM) Amikacin (test code = S Amik) Ampicillin (test code = R Amp) Ampicillin/Sulbactam R (test code = Amp/Sul) Cefazolin (test code = S Cefaz) Cefepime (test code = S Cefep) Cefoxitin (test code = S Cefox) Ceftazidime (test code = S Ceftaz) Ceftriaxone (test code = S Ceftri) Ciprofloxacin (test code S = Cipro) ESBL Confirmation Test (test code = ESBL) Gentamicin (test code = S Gent) Levofloxacin (test code S = Levo) Meropenem (test code = S Patty) Nitrofurantoin (test S code = Nitro) Piperacillin/Tazobactam S (test code = Pip/Rodrigo) Tobramycin (test code = S Tobra) Trimethoprim/Sulfa (test R code = SXT) Final Report (test code >=100,000 cfu/ml = Final Report) Escherichia coli C Urine Added by GL_SET_CULT_RFLXVitamin D, 55-[id number] 03:08:52 16.6Vitamin D deficiency has been defined by the [place] ofMedicine and an Endocrine Society practice guideline as alevel of serum 25-OH vitamin D less than 20 ng/mL (1,2).The Endocrine Society went on to further define vitamin Dinsufficiency as a level between 21 and 29 ng/mL (2).1. IOM ([place] of Medicine). 2010. Dietary reference intakes for calcium and D. [place]: The National Academies Press.2. Jaswinder MF, Dangelo ROES, Carlos CHIANG, et al. Evaluation, treatment, and prevention of vitamin D deficiency: an Endocrine Society clinical practice guideline. JCEM. 2010; 96(7):1911- 30.Performed At: [facility] [address] [id number] Kyle L MD Ph:[phone] with Culture, if [id number] 12:21:12 Test Item Value Reference Range Interpretation Comments UA Color (test code = UA Yellow Yellow Color) UA Appear (test code = Clear Clear UA Appear) UA pH (test code = UA 5.5 pH) UA Spec Grav (test code 1.019 SGU 1.005-1.030 = UA Spec Grav) UA Glucose (test code = Negative Negative UA Glucose) UA Bili (test code = UA Negative Negative Bili) UA Ketones (test code = Negative Negative UA Ketones) UA Blood (test code = UA 1+ Negative A Blood) UA Protein (test code = Negative Negative UA Protein) UA Urobilinogen (test 1.0 EU/dL >0.2 code = UA Urobilinogen) UA Nitrite (test code = Negative Negative UA Nitrite) UA Leuk Est (test code = 2+ Negative A UA Leuk Est) UA Micro Ind? (test code Indicated Not Indicated A Re sult created by = UA Micro Ind?) rule GL_SET_UA_MICRO _IND Urinalysis [id number] 12:21:12 Test Item Value Reference Range Interpretation Comments UA WBC (test code = UA WBC) >100 /HPF 0-5 A UA RBC (test code = UA RBC) 0-4 /HPF 0-4 UA Bacteria (test code = UA 4+ /HPF Negative A Bacteria) UA Squam Epithelial (test code = UA 0-20 /LPF 0-20 Squam Epithelial) UA Hyal Cast (test code = UA Hyal 1-6 /LPF 1-6 Cast) Erythrocyte Sedimentation [id number] 11:19:25 Test Item Value Reference Range Interpretation Comments ESR, Westergren (test code = ESR, 108 mm/hr 0-20 H Westergren) Comprehensive Metabolic [id number] 10:46:09 Test Item Value Reference Range Interpretation Comments Sodium Level (test code = 142 mmol/L 136-145 Sodium Level) Potassium Level (test code = 4.5 mmol/L 3.5-5.1 Potassium Level) Chloride Level (test code = 106 mmol/L 98-107 Chloride Level) CO2 (test code = CO2) 31 mmol/L 21-32 Anion Gap (test code = Anion 5 mmol/L 7-16 L Gap) BUN (test code = BUN) 18 mg/dL 7-18 Creatinine Level (test code = 1.0 mg/dL 0.6-1.0 Creatinine Level) Glucose Level (test code = 132 mg/dL 74-106 H Glucose Level) Calcium Level (test code = 9.3 mg/dL 8.5-10.1 Calcium Level) Alk Phos (test code = Alk 116 IntlUnit/L 50-136 Phos) Bilirubin Total (test code = 0.3 mg/dL 0.2-1.0 Bilirubin Total) Albumin Level (test code = 3.4 g/dL 3.4-5.0 Albumin Level) Protein Total (test code = 8.0 g/dL 6.4-8.2 Protein Total) ALT (test code = ALT) 13 IntlUnit/L 12-78 AST (test code = AST) 7 IntlUnit/L 15-37 L Comprehensive Metabolic [id number] 10:46:09 Test Item Value Reference Range Interpretation Comments Sodium Level (test code = 142 mmol/L 136-145 Sodium Level) Potassium Level (test code 4.5 mmol/L 3.5-5.1 = Potassium Level) Chloride Level (test code 106 mmol/L 98-107 = Chloride Level) CO2 (test code = CO2) 31 mmol/L 21-32 Anion Gap (test code = 5 mmol/L 7-16 L Anion Gap) BUN (test code = BUN) 18 mg/dL 7-18 Creatinine Level (test 1.0 mg/dL 0.6-1.0 code = Creatinine Level) Glucose Level (test code = 132 mg/dL 74-106 H Glucose Level) Calcium Level (test code = 9.3 mg/dL 8.5-10.1 Calcium Level) Alk Phos (test code = Alk 116 IntlUnit/L 50-136 Phos) Bilirubin Total (test code 0.3 mg/dL 0.2-1.0 = Bilirubin Total) Albumin Level (test code = 3.4 g/dL 3.4-5.0 Albumin Level) Protein Total (test code = 8.0 g/dL 6.4-8.2 Protein Total) ALT (test code = ALT) 13 IntlUnit/L 12-78 AST (test code = AST) 7 IntlUnit/L 15-37 L eGFR AA (test code = eGFR >60 mL/min/1.73 m2 N AA) Comprehensive Metabolic [id number] 10:46:09 Test Item Value Reference Range Interpretation Comments Sodium Level (test code = 142 mmol/L 136-145 Sodium Level) Potassium Level (test code 4.5 mmol/L 3.5-5.1 = Potassium Level) Chloride Level (test code 106 mmol/L 98-107 = Chloride Level) CO2 (test code = CO2) 31 mmol/L 21-32 Anion Gap (test code = 5 mmol/L 7-16 L Anion Gap) BUN (test code = BUN) 18 mg/dL 7-18 Creatinine Level (test 1.0 mg/dL 0.6-1.0 code = Creatinine Level) Glucose Level (test code = 132 mg/dL 74-106 H Glucose Level) Calcium Level (test code = 9.3 mg/dL 8.5-10.1 Calcium Level) Alk Phos (test code = Alk 116 IntlUnit/L 50-136 Phos) Bilirubin Total (test code 0.3 mg/dL 0.2-1.0 = Bilirubin Total) Albumin Level (test code = 3.4 g/dL 3.4-5.0 Albumin Level) Protein Total (test code = 8.0 g/dL 6.4-8.2 Protein Total) ALT (test code = ALT) 13 IntlUnit/L 12-78 AST (test code = AST) 7 IntlUnit/L 15-37 L eGFR AA (test code = eGFR >60 mL/min/1.73 m2 N AA) eGFR Non-AA (test code = 57 mL/min/1.73 m2 N eGFR Non-AA) XR Knee 3 Views [id number] 10:37:31Patient: JANIS PATTERSON Date/Time05/04/2019 10:31 CDTReason for ExamArthroplastyReportRIGHT KNEE:CLINICAL INFORMATION: Preop assessment for knee surgery.AP, lateral and oblique views of the right knee demonstrate severe medial joint space narrowing. Radiolucencies in the bone of the medial femoral condyle may represent cystic changes from osteonecrosis. There is a bone cyst (geode) measuring 1.5 x 3 cm in the medial aspect of the proximal tibia. There is no acute fracture appreciated. There is no joint effusion.IMPRESSION:1. Advanced osteoarthrosis in the medial joint prominent the right knee with subchondral cysts.2. 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 Final Dictated by: MD Valdez Joseph ADictated DT/TM: 05/04/2019 10:34 amSigned by: MD Valdez Joseph ASigned (Electronic Signature): 05/04/2019 10:37 amAutomated [id number] 10:34:41 Test Item Value Reference Range Interpretation Comments Neutro Auto (test code = Neutro Auto) 57.2 % N Lymph Auto (test code = Lymph Auto) 33.6 % N [place] Auto (test code = [place] Auto) 4.9 % N Eos, Auto (test code = Eos, Auto) 3.7 % N Basophil Auto (test code = Basophil 0.6 % N Auto) Neutro Absolute (test code = Neutro 5.3 x10 2.7-7.3 Absolute) Lymph Absolute (test code = Lymph 3.1 x10 0.8-3.5 Absolute) [place] Absolute (test code = [place] 0.5 x10 0.3-0.9 Absolute) Eos Absolute (test code = Eos 0.3 x10 0.0-0.3 Absolute) Baso Absolute (test code = Baso 0.1 x10 0.0-0.1 Absolute) Complete Blood Count with [id number] 10:34:40 Test Item Value Reference Range Interpretation Comments WBC (test code = WBC) 9.3 x10 4.8-10.8 RBC (test code = RBC) 3.70 x10 4.20-5.50 L Hgb (test code = Hgb) 10.5 g/dL 12.0-16.0 L Hct (test code = Hct) 31.7 % 35.0-47.0 L MCV (test code = MCV) 85.8 fL 80.0-95.0 RDW (test code = RDW) 14.9 % 11.5-14.5 H MCHC (test code = MCHC) 33.1 g/dL 31.0-36.0 MCH (test code = MCH) 28.4 pg 26.0-32.0 Platelets (test code = 380 x10 140-440 Platelets) MPV (test code = MPV) 8.5 fL 7.5-11.2 Slide Review (test code Auto N Resu lt created by = Slide Review) GL_SET_SLIDE _REVIEW_A UTO XR Chest 2 [id number] 10:34:37Patient: JANIS PATTERSON Date/Time05/04/2019 10:20 CDTReason for Exampreop;Other (please specify)ReportCHEST 2 VIEWREASON FOR STUDY: Hypertension , diabetes.COMPARISON: 05/28/2017COMMENTS:The lungs are clear. There are no pleural abnormalities. The heart and mediastinal contours are within normal limits. The bony thorax is intact. There are degenerative changes in the thoracic spine.IMPRESSION:There is no abnormality identified in the chest. Final Dictated by: Nightingale, MD, Marcial SALGUERO/TM: 05/04/2019 10:34 amSigned by:MD Valdez Joseph ASigned (Electronic Signature): 05/04/2019 10:34 amProthrombin Time and [id number] 10:28:30 Test Item Value Reference Range Interpretation Comments Prothrombin Time (test code = 10.2 seconds 9.2-12.0 Prothrombin Time) INR (test code = INR) 1.0 ratio 0.9-1.2 Partial Thromboplastin [id number] 10:28:30 Test Item Value Reference Range Interpretation Comments Partial Thromboplastin 26.9 seconds 24.0-35.0 APTT Heparin Time (test code = Therapeuti c Range: Partial Thromboplastin 47.9- 80.4 seconds Time) Z-ORG SCREEN MAMMO W/[id number] 13:05:00BA36 Singh StreetIAGNOSTIC IMAGING REPORTPatient Name: JANIS PATTERSON LDate of Service: [id number]: 58 Sex: F Order #: [id number] Room: OPODOB: 1960 X-Ray Number: [id number] Record Number: [id number] Hospital Number: [id number] Physician: MITCHELL AMBROSIONDOrdering Physician: CHAZ AMBROSIOATERAL DIGITAL MAMMOGRAM WITH TOMOSYNTHESIS:CLINICAL HISTORY: Routine annual screening study; family history of breastcancer in a cousin.TECHNIQUE: The craniocaudal and mediolateral views were obtained andtomosynthesis was utilized.BACK HOE OPERATOR: ANA LILIA ELLIOTT, RT R (M)FINDINGS: The breast parenchyma is fibroglandular.There is no evidence of a dominant mass or suspicious clusters ofmicrocalcification in either breast.There arebenign stable nodes in both axillary regions right more prominentthan left.IMPRESSION:Stable examination with no evidence of malignancy and no change since04/05/2018.BI-RADS CATEGORY 2: Benign findings.PLEASE NOTE:1. In up to 10% of patients, cancers are not visible on mammography.2. If a suspicious lump is palpated, biopsy should not be deferredbecause of a negative mammogram.MAMMOGRAPHY AT [facility] IS ACCREDITED BY THE [place] OFRADIOLOGYTHANK YOU FOR YOUR OUTPATIENT REFERRALjhbElectronically Signed By: David Winston M.D., 03/22/2019 1:03 PMLegally authenticated by JOSE Siu 2019-03-22 13:03:03-ORG SCREEN MAMMO W/CAD +[id number] 10:30:[address] [id number] IMAGING REPORTPatient Name: JANIS PATTERSON LDate of Service: [id number]: 57 Sex: F Order #: [id number] Room: OPODOB: 1960 X- Ray Number: [id number] Record Number: [id number] Hospital Number: [id number] Physician: DAILY, ANANDOrdering Physician: DAILY ANANDDigital bilateral screening mammogram with 3-D tomosynthesis 03/17/2018HISTORY: Breast cancer screeningTECHNIQUE: Standard digital screening mammogram images were obtained. 3-Dtomosynthesis images are also evaluated.COMPARISON: 2016MAMM OGRAPHER: Ana Lilia Elliott, RTR (M)FINDINGS:There are scattered areas of fibroglandular density in bothbreasts. Smalllymph nodes in axillary and prepectoral regions are stable. No newsuspicious process is seen on either side. A few punctate, benigncalcifications are scattered in the left breast.IMPRESSIO N:BI-RADS Category 2, benign findings.Routine annual follow-up recommended.PLEASE NOTE:1. In up to10% of patients, cancers are not visible on mammography.2. If a suspicious lump is palpated, biopsy should not be deferredbecause of a negative mammogram.MAMMOGRAPHY AT [facility] IS ACCREDITED BY THE AMERICANCOLLEGE OF RADIOLOGYElectronically Signed By: Tristian Eden M.D., 03/17/2018 10:28AMLegally authenticated by JASMINE ALLISON 2018-03-17 10:28:01CT CHEST ANGIO W/[id number] 08:45:49CTA CHEST WITH 3-D, AND MULTIPLANAR REFORMATS:CLINICAL HISTORY: Chest pain.Radiation dose lowering te chniques were used with automated exposurecontrol, adjusting the mA according to patient's size.Images were obtained started superior to the thoracic inlet and extendedbelow the diaphragm during the rapid infusion of 100 mL of Isovue- 370.Correlation is made with the patient's one view chest performed earlier.The thoracic aorta is normal in caliber. There is no aneurysm ordissection. No intraluminal filling defects were identified to suggestpulmonary emboli. Small patchy areas of infiltrate are seen within bothupper lobes right greater than the left, right middle lobe, and withinthe right lower lobe. There is minimal atelectasis within the left lungbase. There are no pleural effusions. There are noabnormal size nodeswithin the conrado, or within the mediastinum. Cardiac silhouette size isnormal. Theimages were extended inferiorly below the diaphragm. Bothadrenal glands are normal in size and normal in contour. The stomach ispartially food and fluid filled.IMPRESSION:1. No pulmonary emboli. Thoracic aorta is normal in appearance.2. Patchy areas of infiltrates within both upper lobes right greaterthan the left, right middle lobe, and most prominent within the rightlower lobe.XR CHEST SGL 1V, [id number] 07:59:31 XR CHEST SGL 1V, FRONTALDIAGNOSIS: Mid sternal chest painThe heart remains at the upper limits normal in size. The study isseverely limited by morbid obesity. Bronchovascular crowding is noted inthe lower lobes.IMPRESSION: No interval change in the chest radiographic finding since05/21/2017.XR CHEST SGL 1V, FRONTAL 2017-05-21 07:15:58Information: Left-sided chest.Chest one viewThere is a limited inspiratory effort accentuating the cardiac size andpulmonary basilar markings. There are no pulmonary consolidations orpleural effusions.There are overlying cardiac monitoring leads.IMPRESSION:1. Limited inspiration accentuating the cardiac size and basilarpulmonary markings. The possibility of pneumonia particularly within theright lower lobe is not absolutely excluded. KNEE 3 [id number] 10:04:[address] [id number] IMAGING REPORTPatient Name: JANIS PATTERSON Izabelate of Service: [id number]: 56 Sex: F Order #: [id number] Room: OPODOB: 1960 X-Ray Number: [id number] Record Number: [id number] Hospital Number: [id number] Physician: GARCIA AMBROSIOOrdering Physician: Aries AMBROSIO kneesAvailable clinical information: Bilateral knee pain for 4 years.Technique: AP, oblique, and lateral images of both knees and an APweightbearing image of both knees were obtained. The images are comparedwith previous images of the left knee of 10/21/2015 and 05/10/2013. They arealso compared with the images the right knee of 05/10/2013 and 12/10/2011.Findings: On the right, there is almost complete cartilage loss in themedial compartment with subchondral sclerosis and subchondral cystformation. This has progressed since previous examinations. There is mildarticular cartilage loss in the lateral compartment with some osteophyteformation laterally. There is marked patellofemoral degenerative changewith spurring from the superior margin of the patella and the correspondingsuperior margin of the articular surface of the femur with subchondral cystformation. No joint effusion is seen.On the left, there are less advanced, but still severe change of almostcomplete cartilage loss medially with subchondral cyst formation. There ismoderate articular cartilage loss laterally with some moderate osteophyteformation laterally from the femur and tibia, and moderate patellofemoraldegenerative change. No joint effusion seen in the leftsuprapatellarbursa.Impression: Severe progressive bilateral osteoarthritis involvingpredominantly the medial compartments and patellofemoral compartments,worse on the right.Electronically Signed By: Ludwig Felipe M.D., 12/30/2016 10:02 AMLasiya authenticated by MERY GOMEZ 2016-12-30 10:02:18KNEE 4 [id number] 10:04:[address] [id number] IMAGING REPORTPatient Name: JANIS PATTERSON Izabelate of Service: [id number]: [id number] Sex: F Order #: [id number] Room: OPODOB: 1960 X-Ray Number: [id number] Record Number: [id number] Hospital Number: [id number] Physician: Ethan AMBROSIO Physician: Aries AMBROSIO kneesAvailable clinical information: Bilateral knee pain for 4 years.Technique: AP, oblique, and lateral images of both knees and an APweightbearing image of both knees were obtained. The images are comparedwith previous images of the left knee of 10/21/2015 and 05/10/2013. They arealso compared with the images the right knee of 05/10/2013 and 12/10/2011.Findings: On the right, there is almost complete cartilage loss in themedial compartment with subchondral sclerosis and subchondral cystformation. This has progressed since previous examinations. There is mildarticular cartilage loss in the lateral compartment with some osteophyteformation laterally. There is marked patellofemoral degenerative changewith spurring from the superior margin of the patella and the correspondingsuperior margin of the articular surface of the femur with subchondral cystformation. No joint effusion is seen.On the left, there are less advanced, but still severe change of almostcomplete cartilage loss medially with subchondral cyst formation. There ismoderate articular cartilage loss laterally with some moderate osteophyteformation laterally from the femur and tibia, and moderate patellofemoraldegenerative change. No joint effusion seen in the leftsuprapatellarbursa.Impression: Severe progressive bilateral osteoarthritis involvingpredominantly the medial compartments and patellofemoral compartments,worse on the right.Electronically Signed By: Ludwig Felipe M.D., 12/30/2016 10:02 AMLegally authenticated by MERY GOMEZ 2016-12-30 10:02:18
[2020-08-03] MEDS ORDERED: FUROSEMIDE 40 MG/4 ML VIAL ONE (19:37)
--- NOTE | 2020-08-03 20:25 | RAD REPORT ---
EXAM DESCRIPTION: RAD - Chest Single View - 08/03/2020 8:09 pm CLINICAL HISTORY: post tracheostomy reinsertion COMPARISON: None TECHNIQUE: AP portable chest image was obtained 08/03/2020 8:09 pm . FINDINGS: Trach tube appears to be well positioned. Trachea is midline. Low lung volumes accentuate interstitial pattern. No pulmonary edema or acute lung parenchymal process. Heart and vasculature are normal. No measurable pleural effusion and no pneumothorax. No acute bony abnormality seen. No acute aortic findings suspected. IMPRESSION: No acute cardiopulmonary process. Trach tube appears to be properly positioned.
--- NOTE | 2020-08-03 20:35 | ER ---
Nurse's Notes [facility] Name: Marah Patterson Age: 59 yrs Sex: Female : 1960 Arrival Date: 08/03/2020 Time: 19:06 Bed 4 Private MD: Diagnosis: Tracheostomy pulled out Presentation: 08/03 18:55 Chief complaint: EMS states: called out by [facility] for pt pulling out her tracheostomy. Pt sv also attempted to pull her yadav out but was unable to. Pt was on a Venturi mask at 5L with a sat of 95%, EMS placed her on a 100% NRB with an O2 sat of 97%. BP 141/70 HR-110. Risk Assessment: Do you want to hurt yourself or someone else? Unable to obtain. Onset of symptoms was August 03, 2020. 18:55 Method Of Arrival: EMS: [facility] sv 18:55 Acuity: CHARLES 3 sv 19:10 Coronavirus screen: Client denies travel out of the [place] in the last 14 days. At this rr5 time, the client does not indicate any symptoms associated with coronavirus-19. Ebola Screen: Patient negative for fever greater than or equal to 101.5 degrees Fahrenheit, and additional compatible Ebola Virus Disease symptoms Patient denies exposure to infectious person. Patient denies travel to an Ebola-affected area in the 21 days before illness onset. Initial Sepsis Screen: Does the patient meet any 2 criteria? No. Patient's initial sepsis screen is negative. Does the patient have a suspected source of infection? No. Patient's initial sepsis screen is negative. Triage Assessment: 19:10 General: Appears in no apparent distress. comfortable, Behavior is calm, cooperative, rr5 appropriate for age. 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 - Social history:: Smoking status: unknown. Screenin:10 Abuse screen: Denies threats or abuse. Denies injuries from another. Nutritional rr5 screening: No deficits noted. Tuberculosis screening: No symptoms or risk factors identified. Fall Risk IV access (20 points). Gait- Impaired (20 pts.). Total Alexandre Fall Scale indicates High Risk Score (45 or more points). Fall prevention measures have been instituted. Side Rails Up X 2 Frequent Obs/Assessments Occuring As available patient and family educated on Fall Prevention Program and Strategies. Assessment: 19:10 General: Appears in no apparent distress. comfortable, Behavior is calm, cooperative. rr5 19:10 Pain: Denies pain. Neuro: Level of Consciousness is awake, alert, obeys commands. rr5 Cardiovascular: Capillary refill < 3 seconds Patient's skin is warm and dry. Respiratory: Airway is patent Trachea midline Respiratory effort is even, unlabored, Respiratory pattern is regular, symmetrical, tracheostomy stoma noted with dried blood. GI: PEG tube in place, clamped. Site clean. : Yadav in place to gravity drainage positive urine mild red in color. EENT: No signs and/or symptoms were reported regarding the EENT system. Derm: No signs and/or symptoms reported regarding the dermatologic system. Musculoskeletal: Capillary refill < 3 seconds. 20:50 Reassessment: call made to [facility] multiple times no one answered the call. rr5 20:57 Reassessment: report given to [facility] awake, alert vitally stable. abilio [facility] rr5 staff informed thru phone. Vital Signs: 18:55 BP 139 / 85; Pulse 123; Resp 22; Pulse Ox 100% on Non-rebreather mask; sv 19:45 BP 133 / 89; Pulse 133; Resp 24; Pulse Ox 100% 15 lpm ; rr5 20:00 BP 126 / 79; Pulse 125; Resp 28; Pulse Ox 100% ; rr5 20:50 BP 118 / 85; Pulse 118; Resp 20; Temp 98; Pulse Ox 99% on R/A; rr5 ED Course: 19:06 Patient arrived in ED. sv 19:08 Triage completed. sv 19:10 Patient has correct armband on for positive identification. Placed in gown. Bed in low rr5 position. Call light in reach. Side rails up X2. monitor worker on. Pulse ox on. NIBP on. 19:11 Arm band placed on right wrist. rr5 19:15 Inserted saline lock: 20 gauge in right hand, using aseptic technique. rr5 19:15 O2 via tracheostomy mask with oxygen at 15 liters applied. rr5 19:20 Lopez, Demetris, RN is Primary Nurse. rr5 19:45 [place] MD is Attending Physician. pkl 19:45 Assist provider with tracheotomy using cuffless # 4 Shiley. Set up for procedure. rr5 Performed by [place] MD Placement verified by CXR, Patient tolerated well. assisted by RT donis. 20:00 IV discontinued, intact, bleeding controlled, No redness/swelling at site. Pressure rr5 dressing applied. 20:09 XRAY CXR (1 view) In Process Unspecified. EDMS Administered Medications: No medications were administered Outcome: 20:34 Discharge ordered by . pkl 20:50 Discharged to [facility] rr5 20:50 Condition: stable 20:50 Discharge instructions given to EMS, Instructed on discharge instructions, follow up and referral plans. Demonstrated understanding of instructions, follow-up care. 20:54 Patient left the ED. bb Signatures: Dispatcher [employer] EDMS Maribeth Kim RN RN [place] MD MD pkMone Alexander RN RN bb Demetris Lopez, RN RN rr5
--- NOTE | 2020-08-03 20:35 | EDPHYS ---
Physician Documentation [facility] Name: Marah Patterson Age: 59 yrs Sex: Female : 1960 Arrival Date: 08/03/2020 Time: 19:06 Bed 4 Private MD: ED Physician [place] HPI: 08/03 20:29 This 59 yrs old Black Female presents to ER via EMS with complaints of Pulled trach out.pkl 20:29 Patient pulled out her tracheostomy.. Onset: The symptoms/episode began/occurred just pkl prior to arrival. 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 - Social history:: Smoking status: unknown. ROS: 20:29 Eyes: Negative for injury, pain, redness, and discharge, ENT: Negative for injury, pkl pain, and discharge, Neck: Negative for injury, pain, and swelling, Cardiovascular: Negative for chest pain, palpitations, and edema, Respiratory: Negative for shortness of breath, cough, wheezing, and pleuritic chest pain, Abdomen/GI: Negative for abdominal pain, nausea, vomiting, diarrhea, and constipation, Back: Negative for injury and pain, : Negative for injury, bleeding, discharge, and swelling, MS/Extremity: Negative for injury and deformity, Skin: Negative for injury, rash, and discoloration, Neuro: Negative for headache, weakness, numbness, tingling, and seizure. Exam: 20:29 Head/Face: Normocephalic, atraumatic. Eyes: Pupils equal round and reactive to light, pkl extra-ocular motions intact. Lids and lashes normal. Conjunctiva and sclera are non-icteric and not injected. Cornea within normal limits. Periorbital areas with no swelling, redness, or edema. ENT: Nares patent. No nasal discharge, no septal abnormalities noted. Tympanic membranes are normal and external auditory canals are clear. Oropharynx with no redness, swelling, or masses, exudates, or evidence of obstruction, uvula midline. Mucous membranes moist. 20:29 Neck: Tracheostomy pulled out. 20:29 Chest/axilla: Exam negative for acute changes. 20:29 Cardiovascular: Rate: tachycardic, actual rate is 123 bpm, Rhythm: regular. 20:29 Respiratory: the patient does not display signs of respiratory distress, Respirations: normal, Breath sounds: are clear throughout. 20:29 Abdomen/GI: Exam negative for acute changes. 20:29 Back: Exam negative for acute changes. 20:29 : Exam negative for acute changes. 20:29 Musculoskeletal/extremity: Exam is negative for acute changes. 20:29 Skin: Exam negative for rash. 20:29 Neuro: Orientation: is normal, Mentation: appropriate for stated age, Cranial nerves: grossly normal, Motor: moves all fours. Vital Signs: 18:55 BP 139 / 85; Pulse 123; Resp 22; Pulse Ox 100% on Non-rebreather mask; sv 19:45 BP 133 / 89; Pulse 133; Resp 24; Pulse Ox 100% 15 lpm ; rr5 20:00 BP 126 / 79; Pulse 125; Resp 28; Pulse Ox 100% ; rr5 20:50 BP 118 / 85; Pulse 118; Resp 20; Temp 98; Pulse Ox 99% on R/A; rr5 Procedures: 20:29 Replacement of tracheostomy. pkl MDM: 19:45 Patient medically screened. pkl 20:29 Data reviewed: vital signs, nurses notes. [facility] 08/03 19:40 Order name: XRAY CXR (1 view); Complete Time: 20:36 rr5 Administered Medications: No medications were administered Disposition: 08/03/20 20:34 Discharged to Home. Impression: Tracheostomy pulled out. - Condition is Stable. - Medication Reconciliation Form, Thank You Letter, Antibiotic Education, Prescription Opioid Use, SBAR form form. - Follow up: Private Physician; When: 1 - 2 days; Reason: Re-evaluation by your physician. - Problem is new. - Symptoms have improved. Signatures: Dispatcher [employer] Maribeth Singletary, RN RN [place] MD MD pkMone Alexander RN RN Demetris Calderon RN RN rr5 Corrections: (The following items were deleted from the chart) 20:54 20:34 08/03/2020 20:34 Discharged to Home. Impression: Tracheostomy pulled out. bb Condition is Stable. Forms are Medication Reconciliation Form, Thank You Letter, Antibiotic Education, Prescription Opioid Use. Follow up: Private Physician; When: 1 - 2 days; Reason: Re-evaluation by your physician. Problem is new. Symptoms have improved. pkl
== END 2020-08-03 20:54 | disposition home or self-care (01) ==
LOC: ER 19:04
DX: J95.09 Other tracheostomy complication (principal); G81.90 Hemiplegia, unspecified affecting unspecified side; Z88.1 Allergy status to other antibiotic agents; Z91.048 Other nonmedicinal substance allergy status
CPT/HCPCS: 71045; 99291; J1940

== ENCOUNTER 2020-08-05 11:40 | Inpatient (IN) | payer OTHER, SELFPAY ==
--- OUTSIDE RECORDS SUMMARY | 2020-08-05 11:49 | XMS REPORT | Continuity of Care Document ---
:1960 Author Organization [facility] t Address [address] [place] [address] Care Team Providers Name Role Phone DAILY [...] Type Date Date Clinician iodine DA Active AR 2020-0 [facility] 8-17 Dennis 00:00: [facility] [place] levoflox DA Active AR 2019-0 [facility] 8-17 Dennis 00:00: [facility] 00 are [place] No Known DA Active U 0 [facility] Allergie 7-19 Dennis s 00:00: [facility] 00 are [place] Medications This patient has no known medications. Procedures This patient has no known procedures. Encounters Start End Encounter Admission Attending Care Care Encounter Source Date/Time Date/Time Type Type Clinicians Facility Department ID 2020-04-13 2020-04-13 Case [facility] [id number] 00:00:00 00:00:00 Management [facility] [id number] CLINICS [id number] 2017-09-10 2017-09-10 Outpatient 3 ELYSIA BARRERA [id number] [facility] 10:49:00 10:49:00 PHU Grahammo nt) 2017-05-28 2017-05-28 Emergency [facility] [id number] Medical 04:36:00 04:36:00 [facility] 2017-05-21 2017-05-21 Inpatient E [facility] [id number] Medical 02:34:00 02:34:00 [facility] Results Test Description Test Time Test Comments Results Result Comments Source GLUBED 2020-07-10 11:55:00 Test Item Value Reference Range Interpretation Comme nts GLUBED (test code = GLUBED) 126 mg/dL 65-99 H BASIC METABOLIC [id number] 10:08:00 Test Item Value Reference Range Interpretation [...] code 9.4 mg/dL 8.5-10.1 N = CA) [id number] 10:08:00 Test Item Value Reference Range Interpretation Comments MAGNESIUM (test code = MAG) 1.8 mg/dL 1.8-2.4 N CBC W/AUTO [id number] 09:46:00 Test Item Value Reference Range Interpretation [...] = BA#) 0.09 10 3/uL 0.0-0.1 N [id number] 06:11:00 Test Item Value Reference Range Interpretation Comments GLUBED (test code = GLUBED) 127 mg/dL 65-99 H [id number] 01:06:00 Test Item Value Reference Range Interpretation Comments GLUBED (test code = GLUBED) 131 mg/dL 65-99 H [id number] 16:55:00 Test Item Value Reference Range Interpretation Comments GLUBED (test code = GLUBED) 118 mg/dL 65-99 H [id number] 11:34:00 Test Item Value Reference Range Interpretation Comments GLUBED (test code = GLUBED) 123 mg/dL 65-99 H [id number] 06:21:00 Test Item Value Reference Range Interpretation Comments GLUBED (test code = GLUBED) 115 mg/dL 65-99 H BASIC METABOLIC [id number] 04:53:00 Test Item Value Reference Range Interpretation [...] code 9.5 mg/dL 8.5-10.1 N = CA) [id number] 04:53:00 Test Item Value Reference Range Interpretation Comments MAGNESIUM (test code = MAG) 1.7 mg/dL 1.8-2.4 L [id number] 04:53:00 Test Item Value Reference Range Interpretation Comments TROPONIN-I (test code = TROPI) < 0.02 ng/mL 0.00-0.07 N [id number] 23:24:00 Test Item Value Reference Range Interpretation Comments GLUBED (test code = GLUBED) 105 mg/dL 65-99 H THYROID STIMULATING [id number] 20:50:00 Test Item Value Reference Range Interpretation Comments THYROID STIMULATING HORMONE (test 0.66 mIU/mL 0.36-3.74 N code = TSH) Spec Comments: add to blood drawnHARDSTICK MISSED [id number] 20:50:00 Test Item Value Reference Range Interpretation Comments TROPONIN-I (test code = TROPI) < 0.02 ng/mL 0.00-0.07 N Spec Comments: add to blood drawnHARDSTICK MISSED [id number] 20:34:00 Test Item Value Reference Range Interpretation [...] Spec Comments: add to blood drawnHARDSTICK MISSED [id number] 17:24:00 Test Item Value Reference Range Interpretation Comments GLUBED (test code = GLUBED) 105 mg/dL 65-99 H [id number] 12:01:00 Test Item Value Reference Range Interpretation Comments GLUBED (test code = GLUBED) 109 mg/dL 65-99 H [id number] 06:09:00 Test Item Value Reference Range Interpretation Comments GLUBED (test code = GLUBED) 100 mg/dL 65-99 H [id number] 02:04:00 Test Item Value Reference Range Interpretation Comments GLUBED (test code = GLUBED) 100 mg/dL 65-99 H [id number] 21:52:00 Test Item Value Reference Range Interpretation Comments GLUBED (test code = GLUBED) 98 mg/dL 65-99 N [id number] 16:16:00 Test Item Value Reference Range Interpretation Comments GLUBED (test code = GLUBED) 88 mg/dL 65-99 N [id number] 11:33:00 Test Item Value Reference Range Interpretation Comments GLUBED (test code = GLUBED) 109 mg/dL 65-99 H [id number] 07:15:00 Test Item Value Reference Range Interpretation Comments GLUBED (test code = GLUBED) 72 mg/dL 65-99 N [id number] 06:09:00 Test Item Value Reference Range Interpretation Comments GLUBED (test code = GLUBED) 54 mg/dL 65-99 L [id number] 03:15:00 Test Item Value Reference Range Interpretation Comments GLUBED (test code = GLUBED) 94 mg/dL 65-99 N [id number] 02:50:00 Test Item Value Reference Range Interpretation Comments GLUBED (test code = 46 mg/dL 65-99 LL CRITICAL RESULT - GLUBED) TESTING PERFORM ED BY PRIMARY CAREGIV ER [id number] 00:44:00 Test Item Value Reference Range Interpretation Comments GLUBED (test code = GLUBED) 75 mg/dL 65-99 N [id number] 00:04:00 Test Item Value Reference Range Interpretation Comments GLUBED (test code = GLUBED) 63 mg/dL 65-99 L [id number] 17:39:00 Test Item Value Reference Range Interpretation Comments GLUBED (test code = GLUBED) 99 mg/dL 65-99 N [id number] 12:11:00 Test Item Value Reference Range Interpretation Comments GLUBED (test code = GLUBED) 112 mg/dL 65-99 H [id number] 06:10:00 Test Item Value Reference Range Interpretation Comments GLUBED (test code = GLUBED) 99 mg/dL 65-99 N [id number] 06:01:00 Test Item Value Reference Range Interpretation Comments GLUBED (test code = GLUBED) 109 mg/dL 65-99 H [id number] 23:55:00 Test Item Value Reference Range Interpretation Comments GLUBED (test code = GLUBED) 89 mg/dL 65-99 N [id number] 16:54:00 Test Item Value Reference Range Interpretation Comments GLUBED (test code = GLUBED) 114 mg/dL 65-99 H [id number] 12:41:00 Test Item Value Reference Range Interpretation Comments GLUBED (test code = GLUBED) 114 mg/dL 65-99 H [id number] 12:14:00 Test Item Value Reference Range Interpretation Comments MAGNESIUM (test code = MAG) 1.5 mg/dL 1.8-2.4 L CBC W/MANUAL [id number] 06:25:00 Test Item Value Reference Range Interpretation [...] NORMAL PLT MORPH NORMAL code = PLTMORPH) [id number] 06:20:00 Test Item Value Reference Range Interpretation Comments GLUBED (test code = GLUBED) 103 mg/dL 65-99 H COMPREHENSIVE METABOLIC [id number] 04:57:00 Test Item Value Reference Range Interpretation [...] PHOSPHATASE (test code = ALKP) CBC W/MANUAL [id number] 04:44:00 Test Item Value Reference Range Interpretation [...] PLATELET MORPHOLOGY (test code NORMAL = PLTMORPH) [id number] 21:29:00 Test Item Value Reference Range Interpretation Comments GLUBED (test code = GLUBED) 88 mg/dL 65-99 N [id number] 18:37:00 Test Item Value Reference Range Interpretation Comments GLUBED (test code = GLUBED) 98 mg/dL 65-99 N SED [id number] 13:32:00 Test Item Value Reference Range Interpretation Comments SED RATE (test code = SEDW) 61 mm/hr 0-20 H C REACTIVE [id number] 13:29:00 Test Item Value Reference Range Interpretation Comments C REACTIVE PROTEIN (test code = 10.30 mg/dL 0.00-0.33 H CRP) [id number] 12:16:00 Test Item Value Reference Range Interpretation Comments GLUBED (test code = GLUBED) 91 mg/dL 65-99 N [id number] 06:43:00 Test Item Value Reference Range Interpretation Comments GLUBED (test code = GLUBED) 114 mg/dL 65-99 H HGBA1C - GLYCOSYLATED [id number] 05:36:00 Test Item Value Reference Range Interpretation Comments GLYCOSYLATED HEMOGLOBIN (HA1C) (test 5.8 4.5-5.9 N code = GLYHGB) UA RFLX MICR CULT IF [id number] 04:26:00 Test Item Value Reference Range Interpretation [...] Moderate /HPF FEW SQU) Indication for culture: Dysuria/[id number] 02:30:00 Test Item Value Reference Range Interpretation Comments GLUBED (test code = GLUBED) 149 mg/dL 65-99 H [id number] 22:19:00 Test Item Value Reference Range Interpretation Comments GLUBED (test code = GLUBED) 165 mg/dL 65-99 H LACTIC [id number] 20:15:00 Test Item Value Reference Range Interpretation [...] 40 mg/dL 0-100 N Coronavirus 2019 nCoV [id number] 17:52:00 Test Item Value Reference Range Interpretation Comments Coronavirus 2019 Negative Negative This test h ad not been nCoV Bedside (test FDA clear ed or approved; code = [id number]) This te sthas been authorized by F [...] and/o r diagnosis of CO VID-19 under Stywxpj17 4(b)(1) of the Act, 21 U.S .C. 360bbb-3(b)(1), unless theauthorizatio n is terminated or r evoked sooner. Is patient requiring admission or transfer? YIndication for rapid COVID-9 testing: Mod Clinical Suspicion- XR CHEST 1 [id number] 17:48:00Patient Name: JANIS CRAWFORD Unit No: [id number] EXAMS: CPT CODE: [id number] XR CHEST 1 V [id number] EXAM: Chest one view. Location: A1 HISTORY: [...] D/T: S: 07/03/2020 (175) Name: JANIS CRAWFORD [facility] [place] Phys: [place] [address] : 1960 Age: 59 Sex: [place] [address] Loc: [place].ERTELE Exam Date: 07/03/2020 Status: ADM IN PH: FAX: PAGE 1 Signed ReportCBC W/MANUAL [id number] 16:35:00 Test Item Value Reference Range Interpretation [...] MORPH NORMAL code = PLTMORPH) CBC W/MANUAL [id number] 16:34:00 Test Item Value Reference Range Interpretation [...] (test code NORMAL = PLTMORPH) CBC W/MANUAL [id number] 16:34:00 Test Item Value Reference Range Interpretation [...] MORPHOLOGY (test code NORMAL = PLTMORPH) LACTIC [id number] 16:15:00 Test Item Value Reference Range Interpretation Comments LACTIC ACID (test 2.5 mmol/L 0.4-2.0 H Elevated L actate code = LACT) reported to the following Caregiver:Full Name/Title: RELL POSADA/James GALINDO, on 07/03/20, @ 161 5 BASIC METABOLIC [id number] 16:00:00 Test Item Value Reference Range Interpretation [...] N = CA) - CT HEAD/BRAIN W/O [id number] 19:08:00Patient Name: JANIS CRAWFORD Unit No: [id number] EXAMS: CPT CODE: [id number] CT HEAD/BRAIN W/O CONT 48399 LOCATION: H43 EXAM: CT HEAD WO CONTRAST HISTORY: Status post fall. TECHNIQUE: Axial imaging the brain from skull base to the vertex without the administration of intravenous contrast. Sagittal and Coronal reconstructions. CT scan performed using appropriate/available dose optimization/reduction techniques. DIT978.7 m Gy*cm COMPARISON: None. FINDINGS: There is [...] by: Celina Harden MD Name: JANIS CRAWFORD [facility] Phys: ROSA - Jaclyn Nelson [address] [facility] : Age: 59 Sex: [place] [address] Loc: [place].ERS Exam Date: 06/04/2020 Status: REG ER PH: FAX: PAGE 1 Signed Report (CONTINUED) Patient Name: JANIS CRAWFORD Unit No: [id number] EXAMS: CPT CODE: [id number] CT HEAD/BRAIN W/O CONT 69586 <Continued> CC: Kayley Belcher DO; Jaclyn Nelson [employer] Technologist: Katia Stevens; Dee Henderson CTDI: 49.60 DLP: 938.7 Trscr Dt/Tm: 06/04/2020 (1907) by:[email or web address] Electronic Signature Date/Time: 06/04/2020 (1907)Orig Print D/T: S: 06/04/2020 (1910) Name: JANIS CRAWFORD [facility] [place] Phys: STJOVANYE - [place] [address] [facility] : 1960 Age: 59 Sex: [place] [address] Loc: [place].ERS Exam Date: 06/04/2020 Status: REG ER PH: FAX: PAGE 2 Signed Report COMPREHENSIVE METABOLIC [id number] 18:53:00 Test Item Value Reference Range Interpretation [...] data elements are mi ssing the Laboratory davnote ot compute an arslan mation of the [...] PHOSPHATASE (test code = ALKP) COMPREHENSIVE METABOLIC [id number] 18:44:00 Test Item Value Reference Range Interpretation [...] code = U/L 45-117 ALKP) CBC W/AUTO [id number] 18:33:00 Test Item Value Reference Range Interpretation [...] BA#) 0.04 10 3/uL 0.0-0.1 N Urine [id number] 08:19:18No growth at 2 days.Blood [id number] 06:01:35 Test Item Value Reference Range Interpretation [...] by: hamilton steven/rolf 04/04/20 08:34:59 lg POC [id number] 22:18:13 Test Item Value Reference Range Interpretation Comments Glucose POC (test 139 mg/dL 74-106 H POC Glucos e used on code = Glucose POC) critical ly ill patients is considered " off-label use" and has no t been cleared or appr zuly by the FDA. Altern ative testing methods should be considered i f the patient is crit ically ill. POC [id number] 18:21:08 Test Item Value Reference Range Interpretation Comments Glucose POC (test 140 mg/dL 74-106 H POC Glucos e used on code = Glucose POC) critical ly ill patients is considered " off-label use" and has no t been cleared or appr zuly by the FDA. Altern ative testing methods should be considered i f the patient is crit ically ill. POC [id number] 17:08:01 Test Item Value Reference Range Interpretation Comments Glucose POC (test 150 mg/dL 74-106 H POC Glucos e used on code = Glucose POC) critical ly ill patients is considered " off-label use" and has no t been cleared or appr zuly by the FDA. Altern ative testing methods should be considered i f the patient is crit ically ill. Novel Coronavirus SARS-CoV-2, [id number] 17:07:53 Test Item Value Reference Range Interpretation [...] Drug Administration s Emergency Use Authorization. POC [id number] 14:12:08 Test Item Value Reference Range Interpretation Comments Glucose POC (test 157 mg/dL 74-106 H POC Glucos e used on code = Glucose POC) critical ly ill patients is considered " off-label use" and has no t been cleared or appr zuly by the FDA. Altern ative testing methods should be considered i f the patient is crit ically ill. POC [id number] 11:30:53 Test Item Value Reference Range Interpretation Comments Glucose POC (test 167 mg/dL 74-106 H POC Glucos e used on code = Glucose POC) critical ly ill patients is considered " off-label use" and has no t been cleared or appr zuly by the FDA. Altern ative testing methods should be considered i f the patient is crit ically ill. POC G3+ [id number] 09:51:24 Test Item Value Reference Range Interpretation [...] VT (cc)) 500.0 N Red Blood Cells [id number] 09:49:37 Test Item Value Reference Range Interpretation Comments # of Units (test code = 1 N # of Units) RBC Trn Reason (test High risk, even if N code = RBC Trn Reason) Hgb > 7 RBC Product Ready (test RBC Ready code = RBC Product Ready) XR Chest 1 View [id number] 09:01:31Patient: JANIS PATTERSON Date/Time04/02/2020 06:40 CDTReason for [...] Valdez Joseph ASigned (Electronic Signature): 04/02/2020 9:01 [id number] 08:55:25 Test Item Value Reference Range Interpretation Comments Previous History (test code Yes Prev History = Previous History) BBID (test code = BBID) [id number] Methodology (test code = Ortho-Vision(OV) Methodology) Anti-A (test code = Anti-A) 4+ Anti-B (test code = Anti-B) 4+ Anti-D (test code = Anti-D) 4+ DCon (test code = DCon) 0 A1 (test code = A1) 0 B cells (test code = B 0 cells) ABORh (test code = ABORh) AB POS 2C [id number] 08:55:25 Test Item Value Reference Range Interpretation Comments Methodology (test code = Ortho-Vision(OV) Methodology) SC1 (test code = SC1) 0 SC2 (test code = SC2) 0 Antibody Screen (2C) (test Negative ABSC code = Antibody Screen (2C)) POC [id number] 08:32:55 Test Item Value Reference Range Interpretation [...] crit ically ill. Respiratory Culture w/ Gram [id number] 08:32:10 Test Item Value Reference Range Interpretation [...] Gram Stain Cocci Report) Prothrombin Time and [id number] 08:12:21 Test Item Value Reference Range Interpretation Comments Prothrombin Time (test code = 12.7 seconds 9.2-12.0 H Prothrombin Time) INR (test code = INR) 1.2 ratio 0.9-1.2 [id number] 08:10:04 Test Item Value Reference Range Interpretation Comments RBC Morph (test code = RBC As Indicated Normal A Morph) Anisocyte (test code = 2+ A Anisocyte) Hypochromia (test code = 2+ A Hypochromia) Plt Estimation (test code = Plt Decreased Normal A Estimation) POC [id number] 06:20:00 Test Item Value Reference Range Interpretation Comments Glucose POC (test 181 mg/dL 74-106 H POC Glucos e used on code = Glucose POC) critical ly ill patients is considered " off-label use" and has no t been cleared or appr zuly by the FDA. Altern ative testing methods should be considered i f the patient is crit ically ill. POC [id number] 06:19:59 Test Item Value Reference Range Interpretation Comments Glucose POC (test 184 mg/dL 74-106 H POC Glucos e used on code = Glucose POC) critical ly ill patients is considered " off-label use" and has no t been cleared or appr zuly by the FDA. Altern ative testing methods should be considered i f the patient is crit ically ill. POC [id number] 06:19:59 Test Item Value Reference Range Interpretation Comments Glucose POC (test 178 mg/dL 74-106 H POC Glucos e used on code = Glucose POC) critical ly ill patients is considered " off-label use" and has no t been cleared or appr zuly by the FDA. Altern ative testing methods should be considered i f the patient is crit ically ill. Procalcitonin [id number] 05:00:07 Test Item Value Reference Range Interpretation [...] sepsi s or septic shock. Comprehensive Metabolic [id number] 04:45:15 Test Item Value Reference Range Interpretation [...] 33 mL/min/1.73 m2 N AA) Comprehensive Metabolic [id number] 04:45:15 Test Item Value Reference Range Interpretation [...] eGFR 33 mL/min/1.73 m2 N AA) Lipase [id number] 04:45:15 Test Item Value Reference Range Interpretation Comments Lipase Level (test code = 133 IntlUnit/L 73-393 Lipase Level) Magnesium [id number] 04:45:15 Test Item Value Reference Range Interpretation Comments Magnesium Level (test code = 1.8 mg/dL 1.6-2.6 Magnesium Level) Thyroid Stimulating [id number] 04:45:15 Test Item Value Reference Range Interpretation Comments TSH (test code = TSH) 0.514 IntlUnit/mL 0.358-3.740 Pro B Natriuretic [id number] 04:45:15 Test Item Value Reference Range Interpretation Comments NT-proBNP (test 60463 pg/mL 0-125 H < 300 pg/ml - heart code = NT-proBNP) failure un likelyAge less than 50 years, > 450 pg/ml - heart f ailure lilkelyAge 50 - 75 years, > 900 pg /ml - heart failure l ikelyAge greater than 75 years, > 1800 pg/ml - he art failure likely Comprehensive Metabolic [id number] 04:45:15 Test Item Value Reference Range Interpretation [...] mL/min/1.73 m2 N eGFR Non-AA) Partial Thromboplastin [id number] 04:29:37 Test Item Value Reference Range Interpretation Comments Partial Thromboplastin 30.7 seconds 24.0-35.0 APTT Heparin Time (test code = Therapeuti c Range: Partial Thromboplastin 47.9- 80.4 seconds Time) Complete Blood Count with [id number] 04:29:19 Test Item Value Reference Range Interpretation [...] Smear N code = Slide Review) Automated [id number] 04:29:19 Test Item Value Reference Range Interpretation Comments Neutro Auto (test code = Neutro 72.2 % N Auto) Lymph Auto (test code = Lymph Auto) 20.0 % N Pope Auto (test code = Pope Auto) 5.0 % N Eos, Auto (test code = Eos, Auto) 2.4 % N Basophil Auto (test code = Basophil 0.4 % N Auto) Neutro Absolute (test code = Neutro 13.7 x10 2.7-7.3 H Absolute) Lymph Absolute (test code = Lymph 3.8 x10 0.8-3.5 H Absolute) Pope Absolute (test code = Pope 0.9 x10 0.3-0.9 Absolute) Eos Absolute (test code = Eos 0.5 x10 0.0-0.3 H Absolute) Baso Absolute (test code = Baso 0.1 x10 0.0-0.1 Absolute) Ammonia [id number] 04:25:10 Test Item Value Reference Range Interpretation Comments Ammonia Level (test code = Ammonia 44 mmol/L 19-54 Level) POC [id number] 02:23:52 Test Item Value Reference Range Interpretation Comments Glucose POC (test 192 mg/dL 74-106 H POC Glucos e used on code = Glucose POC) critical ly ill patients is considered " off-label use" and has no t been cleared or appr zuly by the FDA. Altern ative testing methods should be considered i f the patient is crit ically ill. POC [id number] 01:09:42 Test Item Value Reference Range Interpretation Comments Glucose POC (test 197 mg/dL 74-106 H POC Glucos e used on code = Glucose POC) critical ly ill patients is considered " off-label use" and has no t been cleared or appr zuly by the FDA. Altern ative testing methods should be considered i f the patient is crit ically ill. POC [id number] 01:09:42 Test Item Value Reference Range Interpretation Comments Glucose POC (test 202 mg/dL 74-106 H POC Glucos e used on code = Glucose POC) critical ly ill patients is considered " off-label use" and has no t been cleared or appr zuly by the FDA. Altern ative testing methods should be considered i f the patient is crit ically ill. POC [id number] 01:09:40 Test Item Value Reference Range Interpretation Comments Glucose POC (test 209 mg/dL 74-106 H POC Glucos e used on code = Glucose POC) critical ly ill patients is considered " off-label use" and has no t been cleared or appr zuly by the FDA. Altern ative testing methods should be considered i f the patient is crit ically ill. POC [id number] 01:09:39 Test Item Value Reference Range Interpretation Comments Glucose POC (test 177 mg/dL 74-106 H POC Glucos e used on code = Glucose POC) critical ly ill patients is considered " off-label use" and has no t been cleared or appr zuly by the FDA. Altern ative testing methods should be considered i f the patient is crit ically ill. POC [id number] 01:09:38 Test Item Value Reference Range Interpretation Comments Glucose POC (test 133 mg/dL 74-106 H POC Glucos e used on code = Glucose POC) critical ly ill patients is considered " off-label use" and has no t been cleared or appr zuly by the FDA. Altern ative testing methods should be considered i f the patient is crit ically ill. POC [id number] 01:09:37 Test Item Value Reference Range Interpretation Comments Glucose POC (test 122 mg/dL 74-106 H POC Glucos e used on code = Glucose POC) critical ly ill patients is considered " off-label use" and has no t been cleared or appr zuly by the FDA. Altern ative testing methods should be considered i f the patient is crit ically ill. POC [id number] 01:09:36 Test Item Value Reference Range Interpretation Comments Glucose POC (test 106 mg/dL 74-106 POC Glucos e used on code = Glucose POC) critical ly ill patients is considered " off-label use" and has no t been cleared or appr zuly by the FDA. Altern ative testing methods should be considered i f the patient is crit ically ill. POC [id number] 18:14:16 Test Item Value Reference Range Interpretation Comments Glucose POC (test 114 mg/dL 74-106 H POC Glucos e used on code = Glucose POC) critical ly ill patients is considered " off-label use" and has no t been cleared or appr zuly by the FDA. Altern ative testing methods should be considered i f the patient is crit ically ill. POC [id number] 16:34:02 Test Item Value Reference Range Interpretation Comments Glucose POC (test 125 mg/dL 74-106 H POC Glucos e used on code = Glucose POC) critical ly ill patients is considered " off-label use" and has no t been cleared or appr zuly by the FDA. Altern ative testing methods should be considered i f the patient is crit ically ill. Basic Metabolic [id number] 15:04:15 Test Item Value Reference Range Interpretation [...] 8.0 mg/dL 8.5-10.1 L Level) Basic Metabolic [id number] 15:04:15 Test Item Value Reference Range Interpretation [...] mL/min/1.73 m2 N eGFR Non-AA) Basic Metabolic [id number] 15:04:15 Test Item Value Reference Range Interpretation [...] 24 mL/min/1.73 m2 N eGFR Non-AA) POC [id number] 14:39:00 Test Item Value Reference Range Interpretation Comments Glucose POC (test 150 mg/dL 74-106 H POC Glucos e used on code = Glucose POC) critical ly ill patients is considered " off-label use" and has no t been cleared or appr zuly by the FDA. Altern ative testing methods should be considered i f the patient is crit ically ill. [id number] 14:36:42 Test Item Value Reference Range Interpretation Comments Acetone (Ketones) (test code = Negative Negative Acetone (Ketones)) POC [id number] 13:00:16 Test Item Value Reference Range Interpretation Comments Glucose POC (test 153 mg/dL 74-106 H POC Glucos e used on code = Glucose POC) critical ly ill patients is considered " off-label use" and has no t been cleared or appr zuly by the FDA. Altern ative testing methods should be considered i f the patient is crit ically ill. POC [id number] 11:05:01 Test Item Value Reference Range Interpretation Comments Glucose POC (test 189 mg/dL 74-106 H POC Glucos e used on code = Glucose POC) critical ly ill patients is considered " off-label use" and has no t been cleared or appr zuly by the FDA. Altern ative testing methods should be considered i f the patient is crit ically ill. POC [id number] 10:28:41 Test Item Value Reference Range Interpretation Comments Glucose POC (test 208 mg/dL 74-106 H POC Glucos e used on code = Glucose POC) critical ly ill patients is considered " off-label use" and has no t been cleared or appr zuly by the FDA. Altern ative testing methods should be considered i f the patient is crit ically ill. Automated [id number] 09:37:36 Test Item Value Reference Range Interpretation Comments Neutro Auto (test code = Neutro 76.5 % N Auto) Lymph Auto (test code = Lymph Auto) 18.8 % N Pope Auto (test code = Pope Auto) 4.5 % N Eos, Auto (test code = Eos, Auto) 0.0 % N Basophil Auto (test code = Basophil 0.2 % N Auto) Neutro Absolute (test code = Neutro 13.4 x10 2.7-7.3 H Absolute) Lymph Absolute (test code = Lymph 3.3 x10 0.8-3.5 Absolute) Pope Absolute (test code = Pope 0.8 x10 0.3-0.9 Absolute) Eos Absolute (test code = Eos 0.0 x10 0.0-0.3 Absolute) Baso Absolute (test code = Baso 0.0 x10 0.0-0.1 Absolute) POC [id number] 09:18:07 Test Item Value Reference Range Interpretation Comments Glucose POC (test 216 mg/dL 74-106 H POC Glucos e used on code = Glucose POC) critical ly ill patients is considered " off-label use" and has no t been cleared or appr zuly by the FDA. Altern ative testing methods should be considered i f the patient is crit ically ill. POC [id number] 08:09:31 Test Item Value Reference Range Interpretation Comments Glucose POC (test 209 mg/dL 74-106 H POC Glucos e used on code = Glucose POC) critical ly ill patients is considered " off-label use" and has no t been cleared or appr zuly by the FDA. Altern ative testing methods should be considered i f the patient is crit ically ill. Prothrombin Time and [id number] 07:10:51 Test Item Value Reference Range Interpretation Comments Prothrombin Time (test code = 24.6 seconds 9.2-12.0 H Prothrombin Time) INR (test code = INR) 2.4 ratio 0.9-1.2 H POC [id number] 07:09:31 Test Item Value Reference Range Interpretation Comments Glucose POC (test 214 mg/dL 74-106 H POC Glucos e used on code = Glucose POC) critical ly ill patients is considered " off-label use" and has no t been cleared or appr zuly by the FDA. Altern ative testing methods should be considered i f the patient is crit ically ill. Partial Thromboplastin [id number] 06:59:00 Test Item Value Reference Range Interpretation Comments Partial Thromboplastin 39.3 seconds 24.0-35.0 H APTT Heparin Time (test code = Therapeuti c Range: Partial Thromboplastin 47.9- 80.4 seconds Time) Haptoglobin [id number] 06:11:38<10Performed At: [facility] [id number] Sanjai MD Ph:[phone] Glucose 2020-04-01 06:07:13 Test Item Value Reference Range Interpretation Comments Glucose POC (test 204 mg/dL 74-106 H POC Glucos e used on code = Glucose POC) critical ly ill patients is considered " off-label use" and has no t been cleared or appr zuly by the FDA. Altern ative testing methods should be considered i f the patient is crit ically ill. POC [id number] 06:07:12 Test Item Value Reference Range Interpretation Comments Glucose POC (test 238 mg/dL 74-106 H POC Glucos e used on code = Glucose POC) critical ly ill patients is considered " off-label use" and has no t been cleared or appr zuly by the FDA. Altern ative testing methods should be considered i f the patient is crit ically ill. POC [id number] 06:07:11 Test Item Value Reference Range Interpretation Comments Glucose POC (test 269 mg/dL 74-106 H POC Glucos e used on code = Glucose POC) critical ly ill patients is considered " off-label use" and has no t been cleared or appr zuly by the FDA. Altern ative testing methods should be considered i f the patient is crit ically ill. Comprehensive Metabolic [id number] 04:53:13 Test Item Value Reference Range Interpretation [...] = AST) 111 IntlUnit/L 15-37 H Lipase [id number] 04:53:13 Test Item Value Reference Range Interpretation Comments Lipase Level (test code = 228 IntlUnit/L 73-393 Lipase Level) Comprehensive Metabolic [id number] 04:53:13 Test Item Value Reference Range Interpretation [...] 29 mL/min/1.73 m2 N AA) Comprehensive Metabolic [id number] 04:53:13 Test Item Value Reference Range Interpretation [...] eGFR Non-AA) Complete Blood Count with Man [id number] 04:39:50 Test Item Value Reference Range Interpretation [...] (test code = 38 x10 140-440 [facility] Platelets) 04/01/2020 04: 39:44 CDT/lrj MPV (test code = MPV) 6.8 fL 7.5-11.2 L POC [id number] 03:06:47 Test Item Value Reference Range Interpretation Comments Glucose POC (test 320 mg/dL 74-106 H POC Glucos e used on code = Glucose POC) critical ly ill patients is considered " off-label use" and has no t been cleared or appr zuly by the FDA. Altern ative testing methods should be considered i f the patient is crit ically ill. POC [id number] 02:45:11 Test Item Value Reference Range Interpretation Comments Glucose POC (test 364 mg/dL 74-106 H POC Glucos e used on code = Glucose POC) critical ly ill patients is considered " off-label use" and has no t been cleared or appr zuly by the FDA. Altern ative testing methods should be considered i f the patient is crit ically ill. POC [id number] 02:45:10 Test Item Value Reference Range Interpretation Comments Glucose POC (test 418 mg/dL 74-106 Notifie dPOC Glucose code = Glucose POC) used on critically ill patients is con sidered "off-label use" and has not been cleare d or approved by the FDA. Alternative moisés ting methods should be considered if t he patient is crit ically ill. XR Chest 1 View [id number] 01:58:04Patient: JANIS PATTERSON Date/Time04/01/2020 01:05 CDTReason for [...] the right lung, suggestive of pneumonia.RL: [id number]: [id number] signed by Jazlyn Le MD, PhD at 04/01/2020 2:00 AM FinalDictated by: Contributor_system, [email or web address]_CTZDictated DT/TM: 04/01/2020 2:01 amSigned by: MD Dawson, Jazlyn GSigned (Electronic Signature): 04/01/2020 1:58 amPOC G3+ [id number] 01:42:00 Test Item Value Reference Range Interpretation [...] code = VT (cc)) 500.0 N POC [id number] 22:44:29 Test Item Value Reference Range Interpretation Comments Glucose POC (test 477 mg/dL 74-106 Notifie dPOC Glucose code = Glucose POC) used on critically ill patients is con sidered "off-label use" and has not been cleare d or approved by the FDA. Alternative moisés ting methods should be considered if t he patient is crit ically ill. POC [id number] 21:40:39 Test Item Value Reference Range Interpretation Comments Glucose POC (test 523 mg/dL 74-106 Ordered La b DrawPOC code = Glucose POC) Glucose used on critically ill patients is considered " off-label use" and has no t been cleared or appr zuly by the FDA. Altern ative testing methods should be considered i f the patient is crit ically ill. POC [id number] 21:40:38 Test Item Value Reference Range Interpretation Comments Glucose POC (test 538 mg/dL 74-106 Result Not ConfirmedPOC code = Glucose POC) Glucose used on critically ill patients is considered " off-label use" and has no t been cleared or appr zuly by the FDA. Altern ative testing methods should be considered i f the patient is crit ically ill. POC [id number] 21:40:37 Test Item Value Reference Range Interpretation Comments Glucose POC (test 593 mg/dL 74-106 Result Not ConfirmedPOC code = Glucose POC) Glucose used on critically ill patients is considered " off-label use" and has no t been cleared or appr zuly by the FDA. Altern ative testing methods should be considered i f the patient is crit ically ill. XR Chest 1 View [id number] 20:42:40Patient: JANIS PATTERSON Date/Time03/31/2020 20:35 CDTReason for [...] Moreno (Electronic Signature): 03/31/2020 8:42 pmPOC G3+ [id number] 20:26:58 Test Item Value Reference Range Interpretation [...] = R Radial N Performing Site) POC [id number] 19:50:11 Test Item Value Reference Range Interpretation Comments Glucose POC (test 482 mg/dL 74-106 Result Not ConfirmedPOC code = Glucose POC) Glucose used on critically ill patients is considered " off-label use" and has no t been cleared or appr zuly by the FDA. Altern ative testing methods should be considered i f the patient is crit ically ill. POC [id number] 19:50:09 Test Item Value Reference Range Interpretation Comments Glucose POC (test 501 mg/dL 74-106 MD Jordan dPPEDRO Glucose code = Glucose POC) used on critically ill patients is con sidered "off-label use" and has not been cleare d or approved by the FDA. Alternative moisés ting methods should be considered if t he patient is crit ically ill. POC [id number] 19:50:08 Test Item Value Reference Range Interpretation Comments Glucose POC (test 484 mg/dL 74-106 MD Jordan dPPEDRO Glucose code = Glucose POC) used on critically ill patients is con sidered "off-label use" and has not been cleare d or approved by the FDA. Alternative moisés ting methods should be considered if t he patient is crit ically ill. POC [id number] 19:50:06 Test Item Value Reference Range Interpretation Comments Glucose POC (test 436 mg/dL 74-106 MD Nikki Stokes Glucose code = Glucose POC) used on critically ill patients is con sidered "off-label use" and has not been cleare d or approved by the FDA. Alternative moisés ting methods should be considered if t he patient is crit ically ill. POC [id number] 17:18:46 Test Item Value Reference Range Interpretation Comments Glucose POC (test 416 mg/dL 74-106 Result Not ConfirmedPOC code = Glucose POC) Glucose used on critically ill patients is considered " off-label use" and has no t been cleared or appr zuly by the FDA. Altern ative testing methods should be considered i f the patient is crit ically ill. Red Blood Cells [id number] 10:21:34 Test Item Value Reference Range Interpretation Comments # of Units (test 1 N code = # of Units) RBC Trn Reason High risk, even N (test code = RBC if Hgb > 7 Trn Reason) RBC Product Ready RBC Ready 03/31/2020 10:21 (test code = RBC OATISJUCALL ED TO Product Ready) MAE [id number] 08:40:13 Test Item Value Reference Range Interpretation Comments RBC Morph (test code = RBC As Indicated Normal A Morph) Anisocyte (test code = 2+ A Anisocyte) Hypochromia (test code = 2+ A Hypochromia) Plt Estimation (test code = Plt Decreased Normal A Estimation) Complete Blood Count with [id number] 08:22:12 Test Item Value Reference Range Interpretation [...] code Smear N = Slide Review) Automated [id number] 08:22:12 Test Item Value Reference Range Interpretation Comments Neutro Auto (test code = Neutro Auto) 75.0 % N Lymph Auto (test code = Lymph Auto) 18.9 % N Pope Auto (test code = Pope Auto) 5.3 % N Eos, Auto (test code = Eos, Auto) 0.2 % N Basophil Auto (test code = Basophil 0.6 % N Auto) Neutro Absolute (test code = Neutro 7.8 x10 2.7-7.3 H Absolute) Lymph Absolute (test code = Lymph 2.0 x10 0.8-3.5 Absolute) Pope Absolute (test code = Pope 0.6 x10 0.3-0.9 Absolute) Eos Absolute (test code = Eos 0.0 x10 0.0-0.3 Absolute) Baso Absolute (test code = Baso 0.1 x10 0.0-0.1 Absolute) Lactate [id number] 08:15:14 Test Item Value Reference Range Interpretation Comments LDH (test code = LDH) 1651 IntlUnit/L 84-246 H Basic Metabolic [id number] 07:03:40 Test Item Value Reference Range Interpretation [...] L code = Calcium Level) Basic Metabolic [id number] 07:03:40 Test Item Value Reference Range Interpretation [...] mL/min/1.73 N eGFR AA) m2 Basic Metabolic [id number] 07:03:40 Test Item Value Reference Range Interpretation [...] N code = eGFR Non-AA) m2 POC [id number] 21:51:26 Test Item Value Reference Range Interpretation Comments Glucose POC (test 298 mg/dL 74-106 H POC Glucos e used on code = Glucose POC) critical ly ill patients is considered " off-label use" and has no t been cleared or appr zuly by the FDA. Altern ative testing methods should be considered i f the patient is crit ically ill. Fresh Frozen [id number] 17:22:36 Test Item Value Reference Range Interpretation Comments # of Units (test code = # 2 N of Units) FFP Transfuse Reason TTP, N (test code = FFP Hemolytic-uremic Transfuse Reason) syndrome, or DIC FFP Product Ready (test FFP Ready code = FFP Product Ready) [id number] 16:56:18Patient: JNAIS PATTERSON Date/Time03/30/2020 16:33 CDTReason for Examjaundice;Elevated liver [...] 03/30/2020 4:56 pmUS Lower Ext Venous Duplex [id number] 16:52:20 Patient: JANIS PATTERSON Date/Time03/30/2020 16:33 CDTReason [...] (Electronic Signature): 03/30/2020 4:52 pmHeparin Induced Platelet [id number] 14:16:060.100Performed At: [facility] [address] [id number] Sanjai MD Ph:[phone] [id number] 13:40:14 Test Item Value Reference Range Interpretation Comments # of Units (test code = 1 N # of Units) PLT Transfuse Reason Plts <50,000 with N (test code = PLT bleeding or procedure Transfuse Reason) Platelet Product Ready PLT Ready (test code = Platelet Product Ready) POC [id number] 12:14:06 Test Item Value Reference Range Interpretation Comments Glucose POC (test 316 mg/dL 74-106 H POC Glucos e used on code = Glucose POC) critical ly ill patients is considered " off-label use" and has no t been cleared or appr zuly by the FDA. Altern ative testing methods should be considered i f the patient is crit ically ill. [id number] 09:30:25 Test Item Value Reference Range Interpretation [...] = Plt Decreased Normal A Estimation) DANA [id number] 08:40:11 Test Item Value Reference Range Interpretation Comments Methodology (test code = Test-Tube(TT) Methodology) Poly (test code = Poly) 0 5 " Poly (test code = 5 " Poly) 0 Poly CC (test code = Poly CC) 2+ DANA - Polyspecific (test code = Negative DANA - Polyspecific) Complete Blood Count with Xukgkeihxlay6074-46-10 07:54:03 Test Item Value Reference Range Interpretation [...] code Smear N = Slide Review) Automated [id number] 07:54:03 Test Item Value Reference Range Interpretation Comments Neutro Auto (test code = Neutro Auto) 58.7 % N Lymph Auto (test code = Lymph Auto) 25.8 % N Pope Auto (test code = Pope Auto) 11.3 % N Eos, Auto (test code = Eos, Auto) 3.4 % N Basophil Auto (test code = Basophil 0.8 % N Auto) Neutro Absolute (test code = Neutro 5.7 x10 2.7-7.3 Absolute) Lymph Absolute (test code = Lymph 2.5 x10 0.8-3.5 Absolute) Pope Absolute (test code = Pope 1.1 x10 0.3-0.9 H Absolute) Eos Absolute (test code = Eos 0.3 x10 0.0-0.3 Absolute) Baso Absolute (test code = Baso 0.1 x10 0.0-0.1 Absolute) D-Dimer [id number] 07:54:03 Test Item Value Reference Range Interpretation [...] is of DVT or PEunlikely. Comprehensive Metabolic [id number] 07:34:37 Test Item Value Reference Range Interpretation [...] = AST) 59 IntlUnit/L 15-37 H Lactate [id number] 07:34:37 Test Item Value Reference Range Interpretation Comments LDH (test code = LDH) 1335 IntlUnit/L 84-246 H Comprehensive Metabolic [id number] 07:34:37 Test Item Value Reference Range Interpretation [...] eGFR 56 mL/min/1.73 m2 N AA) Lipase [id number] 07:34:37 Test Item Value Reference Range Interpretation Comments Lipase Level (test code = 492 IntlUnit/L 73-393 H Lipase Level) Bilirubin [id number] 07:34:37 Test Item Value Reference Range Interpretation Comments Bilirubin Direct (test code = 2.60 mg/dL 0.00-0.20 H Bilirubin Direct) Comprehensive Metabolic [id number] 07:34:37 Test Item Value Reference Range Interpretation [...] 46 mL/min/1.73 m2 N eGFR Non-AA) Reticulocyte [id number] 07:32:16 Test Item Value Reference Range Interpretation Comments Reticulocyte % (test code = 4.6 % 0.5-2.5 H Reticulocyte %) Prothrombin Time and [id number] 06:47:18 Test Item Value Reference Range Interpretation Comments Prothrombin Time (test code = 17.5 seconds 9.2-12.0 H Prothrombin Time) INR (test code = INR) 1.7 ratio 0.9-1.2 H Partial Thromboplastin [id number] 06:47:18 Test Item Value Reference Range Interpretation Comments Partial Thromboplastin 47.6 seconds 24.0-35.0 H APTT Heparin Time (test code = Therapeuti c Range: Partial Thromboplastin 47.9- 80.4 seconds Time) POC [id number] 05:41:33 Test Item Value Reference Range Interpretation Comments Glucose POC (test 292 mg/dL 74-106 H POC Glucos e used on code = Glucose POC) critical ly ill patients is considered " off-label use" and has no t been cleared or appr zuly by the FDA. Altern ative testing methods should be considered i f the patient is crit ically ill. POC [id number] 20:14:35 Test Item Value Reference Range Interpretation Comments Glucose POC (test 194 mg/dL 74-106 H POC Glucos e used on code = Glucose POC) critical ly ill patients is considered " off-label use" and has no t been cleared or appr zuly by the FDA. Altern ative testing methods should be considered i f the patient is crit ically ill. POC [id number] 16:54:44 Test Item Value Reference Range Interpretation Comments Glucose POC (test 205 mg/dL 74-106 H POC Glucos e used on code = Glucose POC) critical ly ill patients is considered " off-label use" and has no t been cleared or appr zuly by the FDA. Altern ative testing methods should be considered i f the patient is crit ically ill. Magnesium [id number] 13:15:11 Test Item Value Reference Range Interpretation Comments Magnesium Level (test code = 1.8 mg/dL 1.6-2.6 Magnesium Level) Platelet [id number] 12:35:33 Test Item Value Reference Range Interpretation Comments # of Units (test code = # of 1 N Units) PLT Transfuse Reason (test code Plts <20,000 N = PLT Transfuse Reason) Platelet Product Ready (test PLT Ready code = Platelet Product Ready) Red Blood Cells [id number] 12:35:32 Test Item Value Reference Range Interpretation Comments # of Units (test code = 1 N # of Units) RBC Trn Reason (test High risk, even if N code = RBC Trn Reason) Hgb > 7 RBC Product Ready (test RBC Ready code = RBC Product Ready) [id number] 12:27:50 Test Item Value Reference Range Interpretation Comments Previous History (test code Yes Prev History = Previous History) BBID (test code = BBID) [id number] Methodology (test code = Ortho-Vision(OV) Methodology) Anti-A (test code = Anti-A) 4+ Anti-B (test code = Anti-B) 4+ Anti-D (test code = Anti-D) 4+ DCon (test code = DCon) 0 A1 (test code = A1) 0 B cells (test code = B 0 cells) ABORh (test code = ABORh) AB POS 2C [id number] 12:27:50 Test Item Value Reference Range Interpretation Comments Methodology (test code = Ortho-Vision(OV) Methodology) SC1 (test code = SC1) 0 SC2 (test code = SC2) 0 Antibody Screen (2C) (test Negative ABSC code = Antibody Screen (2C)) POC [id number] 11:15:10 Test Item Value Reference Range Interpretation Comments Glucose POC (test 230 mg/dL 74-106 H POC Glucos e used on code = Glucose POC) critical ly ill patients is considered " off-label use" and has no t been cleared or appr zuly by the FDA. Altern ative testing methods should be considered i f the patient is crit ically ill. Comprehensive Metabolic [id number] 09:26:11 Test Item Value Reference Range Interpretation [...] AST) 54 IntlUnit/L 15-37 H Comprehensive Metabolic [id number] 09:26:11 Test Item Value Reference Range Interpretation [...] eGFR 56 mL/min/1.73 m2 N AA) Lipase [id number] 09:26:11 Test Item Value Reference Range Interpretation Comments Lipase Level (test code = 466 IntlUnit/L 73-393 H Lipase Level) Comprehensive Metabolic [id number] 09:26:11 Test Item Value Reference Range Interpretation [...] = 46 mL/min/1.73 m2 N eGFR Non-AA) [id number] 09:25:40 Test Item Value Reference Range Interpretation [...] Normal A Estimation) Complete Blood Count with [id number] 09:06:53 Test Item Value Reference Range Interpretation [...] code Smear N = Slide Review) Automated [id number] 09:06:53 Test Item Value Reference Range Interpretation Comments Neutro Auto (test code = Neutro Auto) 57.9 % N Lymph Auto (test code = Lymph Auto) 27.6 % N Pope Auto (test code = Pope Auto) 10.6 % N Eos, Auto (test code = Eos, Auto) 3.1 % N Basophil Auto (test code = Basophil 0.8 % N Auto) Neutro Absolute (test code = Neutro 5.2 x10 2.7-7.3 Absolute) Lymph Absolute (test code = Lymph 2.5 x10 0.8-3.5 Absolute) Pope Absolute (test code = Pope 1.0 x10 0.3-0.9 H Absolute) Eos Absolute (test code = Eos 0.3 x10 0.0-0.3 Absolute) Baso Absolute (test code = Baso 0.1 x10 0.0-0.1 Absolute) XR Abdomen 2 [id number] 09:00:16Patient: JANIS PATTERSON Date/Time03/29/2020 08:22 CDTReason for [...] Errol, SamerSigned (Electronic Signature): 03/29/2020 9:00 amPOC [id number] 06:10:33 Test Item Value Reference Range Interpretation Comments Glucose POC (test 235 mg/dL 74-106 H POC Glucos e used on code = Glucose POC) critical ly ill patients is considered " off-label use" and has no t been cleared or appr zuly by the FDA. Altern ative testing methods should be considered i f the patient is crit ically ill. Blood [id number] 06:01:42No growth at 5 days.POC [id number] 22:16:26 Test Item Value Reference Range Interpretation Comments Glucose POC (test 212 mg/dL 74-106 H POC Glucos e used on code = Glucose POC) critical ly ill patients is considered " off-label use" and has no t been cleared or appr zuly by the FDA. Altern ative testing methods should be considered i f the patient is crit ically ill. POC [id number] 15:35:25 Test Item Value Reference Range Interpretation Comments Glucose POC (test 167 mg/dL 74-106 H POC Glucos e used on code = Glucose POC) critical ly ill patients is considered " off-label use" and has no t been cleared or appr zuly by the FDA. Altern ative testing methods should be considered i f the patient is crit ically ill. POC [id number] 11:00:02 Test Item Value Reference Range Interpretation Comments Glucose POC (test 159 mg/dL 74-106 H POC Glucos e used on code = Glucose POC) critical ly ill patients is considered " off-label use" and has no t been cleared or appr zuly by the FDA. Altern ative testing methods should be considered i f the patient is crit ically ill. XR Abdomen 2 [id number] 09:30:43Patient: JANIS PATTERSON Date/Time03/28/2020 08:55 CDTReason for [...] Errol, SamerSigned (Electronic Signature): 03/28/2020 9:30 amPOC [id number] 07:05:07 Test Item Value Reference Range Interpretation Comments Glucose POC (test 202 mg/dL 74-106 H POC Glucos e used on code = Glucose POC) critical ly ill patients is considered " off-label use" and has no t been cleared or appr zuly by the FDA. Altern ative testing methods should be considered i f the patient is crit ically ill. [id number] 04:19:33 Test Item Value Reference Range Interpretation [...] = Decreased Normal A Plt Estimation) POC [id number] 03:59:30 Test Item Value Reference Range Interpretation Comments Glucose POC (test 210 mg/dL 74-106 H POC Glucos e used on code = Glucose POC) critical ly ill patients is considered " off-label use" and has no t been cleared or appr zuly by the FDA. Altern ative testing methods should be considered i f the patient is crit ically ill. Comprehensive Metabolic [id number] 03:56:15 Test Item Value Reference Range Interpretation [...] = AST) 42 IntlUnit/L 15-37 H Lipase [id number] 03:56:15 Test Item Value Reference Range Interpretation Comments Lipase Level (test code = 626 IntlUnit/L 73-393 H Lipase Level) Comprehensive Metabolic [id number] 03:56:15 Test Item Value Reference Range Interpretation [...] eGFR 56 mL/min/1.73 m2 N AA) Magnesium Yhwpk7286-20-00 03:56:15 Test Item Value Reference Range Interpretation Comments Magnesium Level (test code = 1.3 mg/dL 1.6-2.6 L Magnesium Level) Comprehensive Metabolic Froil0233-23-19 03:56:15 Test Item Value Reference Range Interpretation [...] m2 N eGFR Non-AA) Prothrombin Time and [id number] 03:49:01 Test Item Value Reference Range Interpretation Comments Prothrombin Time (test code = 17.1 seconds 9.2-12.0 H Prothrombin Time) INR (test code = INR) 1.7 ratio 0.9-1.2 H Partial Thromboplastin [id number] 03:49:01 Test Item Value Reference Range Interpretation Comments Partial Thromboplastin 48.4 seconds 24.0-35.0 H APTT Heparin Time (test code = Therapeuti c Range: Partial Thromboplastin 47.9- 80.4 seconds Time) Complete Blood Count with Bqejxbzotyyi2416-55-42 03:44:12 Test Item Value Reference Range Interpretation [...] code Smear N = Slide Review) Automated Zbscxiwzimmq3155-32-77 03:44:12 Test Item Value Reference Range Interpretation Comments Neutro Auto (test code = Neutro Auto) 64.6 % N Lymph Auto (test code = Lymph Auto) 21.7 % N Pope Auto (test code = Pope Auto) 10.0 % N Eos, Auto (test code = Eos, Auto) 2.8 % N Basophil Auto (test code = Basophil 0.9 % N Auto) Neutro Absolute (test code = Neutro 7.3 x10 2.7-7.3 Absolute) Lymph Absolute (test code = Lymph 2.4 x10 0.8-3.5 Absolute) Pope Absolute (test code = Pope 1.1 x10 0.3-0.9 H Absolute) Eos Absolute (test code = Eos 0.3 x10 0.0-0.3 Absolute) Baso Absolute (test code = Baso 0.1 x10 0.0-0.1 Absolute) POC Xehornb9419-01-13 00:10:36 Test Item Value Reference Range Interpretation [...] crit ically ill. Actin (Smooth Muscle) Antibody [id number] 17:12:1911 Negative 0 - 19 Weak positive 20 - 30 Moderate to strong positive >30 Actin Antibodies are found in 52-85% of patients with autoimmune hepatitis or chronic active hepatitis and in 22% of patients with primary biliary cirrhosis.Performed At: [facility] [id number] MD Ph:[phone] (M2) Antibody [id number] 17:12:19<20.0 Negative 0.0 - 20.0 Equivocal 20.1 - 24.9 Positive >24.9 Mitochondrial (M2) Antibodies are found in 90-96% ofpatients with primary biliary cirrhosis.Performed At: [facility] [id number] Sanjai MD Ph:[phone] Abdomen and Pelvis w/o Contrast 2020-03-27 16:09:24Patient: [...] Signature): 03/27/2020 4:09 pm Prothrombin Time and [id number] 13:27:24 Test Item Value Reference Range Interpretation Comments Prothrombin Time (test code = 16.7 seconds 9.2-12.0 H Prothrombin Time) INR (test code = INR) 1.6 ratio 0.9-1.2 H Ibxjtemvrg0899-56-19 13:26:22 Test Item Value Reference Range Interpretation Comments RBC Morph (test code = RBC As Indicated Normal A Morph) Anisocyte (test code = 1+ A Anisocyte) Hypochromia (test code = 2+ A Hypochromia) Poik (test code = Poik) 1+ A Schistocytes (test code = 1+ A Schistocytes) Plt Estimation (test code = Plt Decreased Normal A Estimation) Complete Blood Count with Wmifsqqfsrdj6851-27-64 13:24:14 Test Item Value Reference Range Interpretation [...] code = Slide Smear N Review) POC Sidtaui4407-99-27 12:54:28 Test Item Value Reference Range Interpretation Comments Glucose POC (test 204 mg/dL 74-106 H POC Glucos e used on code = Glucose POC) critical ly ill patients is considered " off-label use" and has no t been cleared or appr uzly by the FDA. Altern ative testing methods should be considered i f the patient is crit ically ill. Automated Omzzouznuubt4083-72-39 12:39:37 Test Item Value Reference Range Interpretation Comments Neutro Auto (test code = Neutro Auto) 68.3 % N Lymph Auto (test code = Lymph Auto) 18.8 % N Pope Auto (test code = Pope Auto) 9.9 % N Eos, Auto (test code = Eos, Auto) 2.5 % N Basophil Auto (test code = Basophil 0.5 % N Auto) Neutro Absolute (test code = Neutro 7.9 x10 2.7-7.3 H Absolute) Lymph Absolute (test code = Lymph 2.2 x10 0.8-3.5 Absolute) Pope Absolute (test code = Pope 1.1 x10 0.3-0.9 H Absolute) Eos Absolute (test code = Eos 0.3 x10 0.0-0.3 Absolute) Baso Absolute (test code = Baso 0.1 x10 0.0-0.1 Absolute) Comprehensive Metabolic [id number] 12:34:10 Test Item Value Reference Range Interpretation [...] AST) 42 IntlUnit/L 15-37 H Comprehensive Metabolic [id number] 12:34:10 Test Item Value Reference Range Interpretation [...] eGFR 56 mL/min/1.73 m2 N AA) Lipase [id number] 12:34:10 Test Item Value Reference Range Interpretation Comments Lipase Level (test code = 763 IntlUnit/L 73-393 H Lipase Level) Comprehensive Metabolic [id number] 12:34:10 Test Item Value Reference Range Interpretation [...] = 46 mL/min/1.73 m2 N eGFR Non-AA) Uyxrcla1223-50-18 12:34:09 Test Item Value Reference Range Interpretation Comments Amylase Level (test code = 122 IntlUnit/L 25-115 H Amylase Level) Basic Metabolic Hrbbh0460-22-36 07:47:13 Test Item Value Reference Range Interpretation [...] Calcium 8.5 mg/dL 8.5-10.1 Level) Basic Metabolic Trsvf7192-01-09 07:47:13 Test Item Value Reference Range Interpretation [...] mL/min/1.73 m2 N eGFR Non-AA) Basic Metabolic Vmlxc3917-18-73 07:47:13 Test Item Value Reference Range Interpretation [...] 51 mL/min/1.73 m2 N eGFR Non-AA) POC Zjfwnjd3633-41-81 06:48:16 Test Item Value Reference Range Interpretation Comments Glucose POC (test 212 mg/dL 74-106 H POC Glucos e used on code = Glucose POC) critical ly ill patients is considered " off-label use" and has no t been cleared or appr zuly by the FDA. Altern ative testing methods should be considered i f the patient is crit ically ill. POC [id number] 20:59:44 Test Item Value Reference Range Interpretation Comments Glucose POC (test 197 mg/dL 74-106 H POC Glucos e used on code = Glucose POC) critical ly ill patients is considered " off-label use" and has no t been cleared or appr zuly by the FDA. Altern ative testing methods should be considered i f the patient is crit ically ill. POC Fuabtzk8089-16-68 17:11:26 Test Item Value Reference Range Interpretation Comments Glucose POC (test 204 mg/dL 74-106 H POC Glucos e used on code = Glucose POC) critical ly ill patients is considered " off-label use" and has no t been cleared or appr zuly by the FDA. Altern ative testing methods should be considered i f the patient is crit ically ill. Lipase [id number] 17:02:10 Test Item Value Reference Range Interpretation Comments Lipase Level (test code = 829 IntlUnit/L 73-393 H Lipase Level) Comprehensive Metabolic [id number] 17:02:09 Test Item Value Reference Range Interpretation [...] AST) 52 IntlUnit/L 15-37 H Comprehensive Metabolic [id number] 17:02:09 Test Item Value Reference Range Interpretation [...] 56 mL/min/1.73 m2 N AA) Comprehensive Metabolic Oxaec5439-33-03 17:02:09 Test Item Value Reference Range Interpretation [...] = 46 mL/min/1.73 m2 N eGFR Non-AA) Ojuipcfxrj3749-85-32 16:32:33 Test Item Value Reference Range Interpretation [...] (test code = 1+ A Stomatocytes) Automated Ilifkhtzyrrb6905-68-73 16:16:43 Test Item Value Reference Range Interpretation Comments Neutro Auto (test code = Neutro Auto) 67.2 % N Lymph Auto (test code = Lymph Auto) 19.2 % N Pope Auto (test code = Pope Auto) 10.1 % N Eos, Auto (test code = Eos, Auto) 2.4 % N Basophil Auto (test code = Basophil 1.1 % N Auto) Neutro Absolute (test code = Neutro 8.7 x10 2.7-7.3 H Absolute) Lymph Absolute (test code = Lymph 2.5 x10 0.8-3.5 Absolute) Pope Absolute (test code = Pope 1.3 x10 0.3-0.9 H Absolute) Eos Absolute (test code = Eos 0.3 x10 0.0-0.3 Absolute) Baso Absolute (test code = Baso 0.1 x10 0.0-0.1 Absolute) Complete Blood Count with Fsodmqpaxghz0296-94-57 16:16:42 Test Item Value Reference Range Interpretation [...] code = Slide Smear N Review) POC Wnagqjd0054-39-18 12:16:31 Test Item Value Reference Range Interpretation Comments Glucose POC (test 244 mg/dL 74-106 H POC Glucos e used on code = Glucose POC) critical ly ill patients is considered " off-label use" and has no t been cleared or appr zuly by the FDA. Altern ative testing methods should be considered i f the patient is crit ically ill. Copper, Serum [id number] 10:08:35876Saok test was developed and its performance characteristicsdetermined by [employer]. It has not beencleared orapproved by the Food and Drug Administration. Detection Limit = 5Performed At: [facility] [address] [place], [place] [id number] Sanjai MD Ph:[phone] Lpbwxxy3105-69-91 05:04:23 Test Item Value Reference Range Interpretation Comments Glucose POC (test 264 mg/dL 74-106 H POC Glucos e used on code = Glucose POC) critical ly ill patients is considered " off-label use" and has no t been cleared or appr zuly by the FDA. Altern ative testing methods should be considered i f the patient is crit ically ill. POC [id number] 04:53:58 Test Item Value Reference Range Interpretation Comments Glucose POC (test 246 mg/dL 74-106 H POC Glucos e used on code = Glucose POC) critical ly ill patients is considered " off-label use" and has no t been cleared or appr zuly by the FDA. Altern ative testing methods should be considered i f the patient is crit ically ill. POC Gcoknps4743-73-05 00:33:02 Test Item Value Reference Range Interpretation [...] crit ically ill. XR Abdomen KUB 1 Xfbi2157-72-48 13:53:33Patient: JANIS PATTERSON Date/Time03/25/202013:45 CDTReason for ExamLine [...] Gustavo MSigned (Electronic Signature): 03/25/2020 1:53 pmPOC [id number] 11:27:11 Test Item Value Reference Range Interpretation Comments Glucose POC (test 272 mg/dL 74-106 H POC Glucos e used on code = Glucose POC) critical ly ill patients is considered " off-label use" and has no t been cleared or appr zuly by the FDA. Altern ative testing methods should be considered i f the patient is crit ically ill. POC Opblavm2321-16-14 05:14:19 Test Item Value Reference Range Interpretation Comments Glucose POC (test 289 mg/dL 74-106 H POC Glucos e used on code = Glucose POC) critical ly ill patients is considered " off-label use" and has no t been cleared or appr zuly by the FDA. Altern ative testing methods should be considered i f the patient is crit ically ill. POC [id number] 23:12:01 Test Item Value Reference Range Interpretation Comments Glucose POC (test 256 mg/dL 74-106 H POC Glucos e used on code = Glucose POC) critical ly ill patients is considered " off-label use" and has no t been cleared or appr zuly by the FDA. Altern ative testing methods should be considered i f the patient is crit ically ill. POC Rpdbiyf5416-47-69 16:43:04 Test Item Value Reference Range Interpretation Comments Glucose POC (test 288 mg/dL 74-106 H POC Glucos e used on code = Glucose POC) critical ly ill patients is considered " off-label use" and has no t been cleared or appr zuly by the FDA. Altern ative testing methods should be considered i f the patient is crit ically ill. POC Udexjzl2036-06-57 12:07:38 Test Item Value Reference Range Interpretation Comments Glucose POC (test 279 mg/dL 74-106 H POC Glucos e used on code = Glucose POC) critical ly ill patients is considered " off-label use" and has no t been cleared or appr zuly by the FDA. Altern ative testing methods should be considered i f the patient is crit ically ill. POC Ykohwop2840-03-25 12:07:35 Test Item Value Reference Range Interpretation Comments Glucose POC (test 264 mg/dL 74-106 H POC Glucos e used on code = Glucose POC) critical ly ill patients is considered " off-label use" and has no t been cleared or appr zuly by the FDA. Altern ative testing methods should be considered i f the patient is crit ically ill. POC Afrjvfu8336-04-43 12:07:33 Test Item Value Reference Range Interpretation Comments Glucose POC (test 255 mg/dL 74-106 H POC Glucos e used on code = Glucose POC) critical ly ill patients is considered " off-label use" and has no t been cleared or appr zuly by the FDA. Altern ative testing methods should be considered i f the patient is crit ically ill. Basic Metabolic [id number] 07:25:13 Test Item Value Reference Range Interpretation [...] Calcium 8.7 mg/dL 8.5-10.1 Level) Basic Metabolic Vglic8455-08-10 07:25:13 Test Item Value Reference Range Interpretation [...] mL/min/1.73 m2 N eGFR Non-AA) Basic Metabolic Reray3475-02-77 07:25:13 Test Item Value Reference Range Interpretation [...] 42 mL/min/1.73 m2 N eGFR Non-AA) POC [id number] 18:31:46 Test Item Value Reference Range Interpretation Comments Glucose POC (test 259 mg/dL 74-106 H POC Glucos e used on code = Glucose POC) critical ly ill patients is considered " off-label use" and has no t been cleared or appr zuly by the FDA. Altern ative testing methods should be considered i f the patient is crit ically ill. POC Dtkugbk9559-34-40 16:34:32 Test Item Value Reference Range Interpretation Comments Glucose POC (test 261 mg/dL 74-106 H POC Glucos e used on code = Glucose POC) critical ly ill patients is considered " off-label use" and has no t been cleared or appr zuly by the FDA. Altern ative testing methods should be considered i f the patient is crit ically ill. Oiyam-4-Hzohtfcfrdk, Serum [id number] 15:09:98135Dfypvyqsc At: [facility]ENN[facility] X[address]b1672 [facility] [address] [place], [place] [id number] CN MD Ph:[phone] Comprehensive Metabolic Zrjzu5316-68-09 11:29:11 Test Item Value Reference Range Interpretation [...] = AST) 31 IntlUnit/L 15-37 Comprehensive Metabolic Lzpbv6662-16-04 11:29:11 Test Item Value Reference Range Interpretation [...] 47 mL/min/1.73 m2 N AA) Comprehensive Metabolic Begks9542-56-94 11:29:11 Test Item Value Reference Range Interpretation [...] N eGFR Non-AA) Complete Blood Count with Ukaamnvjwddr7607-36-97 10:47:41 Test Item Value Reference Range Interpretation [...] = Slide Review) GL_SET_SLIDE _REVIEW_A UTO Automated Vxhjamzwyzzl9766-36-56 10:47:41 Test Item Value Reference Range Interpretation Comments Neutro Auto (test code = Neutro 74.9 % N Auto) Lymph Auto (test code = Lymph Auto) 14.8 % N Pope Auto (test code = Pope Auto) 7.2 % N Eos, Auto (test code = Eos, Auto) 2.9 % N Basophil Auto (test code = Basophil 0.2 % N Auto) Neutro Absolute (test code = Neutro 11.4 x10 2.7-7.3 H Absolute) Lymph Absolute (test code = Lymph 2.2 x10 0.8-3.5 Absolute) Pope Absolute (test code = Pope 1.1 x10 0.3-0.9 H Absolute) Eos Absolute (test code = Eos 0.4 x10 0.0-0.3 H Absolute) Baso Absolute (test code = Baso 0.0 x10 0.0-0.1 Absolute) Hepatitis Panel (4) [id number] 08:10:18 Test Item Value Reference Range Interpretation [...] HCV Nucl eic Acid Amplification t est (328468).Perfor med At: [facility] [address] [id number] Zeus Guzman MD Ph:[phone] POC [id number] 07:29:43 Test Item Value Reference Range Interpretation Comments Glucose POC (test 262 mg/dL 74-106 H POC Glucos e used on code = Glucose POC) critical ly ill patients is considered " off-label use" and has no t been cleared or appr zuly by the FDA. Altern ative testing methods should be considered i f the patient is crit ically ill. AFP, Serum, Tumor Ygbblx0546-20-79 03:12:553.1[employer] Electrochemiluminescence Immunoassay(ECLIA) Values obtained with different assay methods or kits cannotbe used interchangeably. Results cannot be interpreted asabsolute evidence of the presence or absence of malignantdisease. This test is not interpretable in females.Performed At: [facility] [address] [id number] Guzman MD Ph:[phone], Serum, Tumor Isjwwf8135-30-37 03:12:553.1[employer] Electrochemiluminescence Immunoassay(ECLIA) Values obtained with different assay methods or kits cannotbe used interchangeably. Results cannot be interpreted asabsolute evidence of the presence or absence of malignantdisease. This test is not interpretable in females.Performed At: [facility] [address] [id number] Guzman MD Ph:[phone] [id number] 21:58:00 Test Item Value Reference Range Interpretation Comments Glucose POC (test 239 mg/dL 74-106 H POC Glucos e used on code = Glucose POC) critical ly ill patients is considered " off-label use" and has no t been cleared or appr zuly by the FDA. Altern ative testing methods should be considered i f the patient is crit ically ill. POC [id number] 18:19:59 Test Item Value Reference Range Interpretation Comments Glucose POC (test 228 mg/dL 74-106 H POC Glucos e used on code = Glucose POC) critical ly ill patients is considered " off-label use" and has no t been cleared or appr zuly by the FDA. Altern ative testing methods should be considered i f the patient is crit ically ill. POC [id number] 18:19:58 Test Item Value Reference Range Interpretation Comments Glucose POC (test 230 mg/dL 74-106 H POC Glucos e used on code = Glucose POC) critical ly ill patients is considered " off-label use" and has no t been cleared or appr zuly by the FDA. Altern ative testing methods should be considered i f the patient is crit ically ill. Blood [id number] 18:01:51No growth at 5 days.US Abdomen Complete [...] (Electronic Signature): 03/22/2020 3:20 pmRed Blood Cells Gitzkjvjzepb6862-03-78 14:12:19 Test Item Value Reference Range Interpretation Comments # of Units (test code = 2 N # of Units) RBC Trn Reason (test High risk, even if N code = RBC Trn Reason) Hgb > 7 RBC Product Ready (test RBC Ready code = RBC Product Ready) [id number] 13:41:19 Test Item Value Reference Range Interpretation Comments Previous History (test code Yes Prev History = Previous History) BBID (test code = BBID) [id number] Methodology (test code = Ortho-Vision(OV) Methodology) Anti-A (test code = Anti-A) 4+ Anti-B (test code = Anti-B) 4+ Anti-D (test code = Anti-D) 4+ DCon (test code = DCon) 0 A1 (test code = A1) 0 B cells (test code = B 0 cells) ABORh (test code = ABORh) AB POS 2C [id number] 13:41:19 Test Item Value Reference Range Interpretation Comments Methodology (test code = Ortho-Vision(OV) Methodology) SC1 (test code = SC1) 0 SC2 (test code = SC2) 0 Antibody Screen (2C) (test Negative ABSC code = Antibody Screen (2C)) XR Abdomen KUB 1 [id number] 13:33:47Patient: JANIS PATTERSON Date/Time03/22/202013:17 CDTReason for ExamAbdominal distentionReportAbdomen single viewHISTORY: Abdominal distentionCOMPARISON: 03/15/2020TECHNIQUE: Supine views providedFINDINGS: Examination limited on the basis of bodyhabitus. Included lung goodrich are clear. Decreasing bowel gas noted. No pathologic calcification. Osseous structures unchanged.IMPRESSION: Nonobstructive bowel gas pattern. Final Dictated by: MD Ramiro, Jesúsctalexandra DT/TM: 03/22/2020 1:31 pmSigned by: MD Ramiro, Huagndebby (Electronic Signature): 03/22/2020 1:33 pmIron [id number] 13:27:16 Test Item Value Reference Range Interpretation Comments Iron (test code = Iron) 23 mcg/dL 50-170 L Oqwrcrxm7731-95-25 13:27:16 Test Item Value Reference Range Interpretation Comments Ferritin Level (test code = 2407.0 ng/mL 8.0-388.0 H Ferritin Level) Ammonia Bgeui1061-96-95 13:10:13 Test Item Value Reference Range Interpretation Comments Ammonia Level (test code = Ammonia 10 mmol/L 19-54 L Level) Prothrombin Time and [id number] 12:53:08 Test Item Value Reference Range Interpretation Comments Prothrombin Time (test code = 14.2 seconds 9.2-12.0 H Prothrombin Time) INR (test code = INR) 1.4 ratio 0.9-1.2 H Partial Thromboplastin [id number] 12:53:08 Test Item Value Reference Range Interpretation Comments Partial Thromboplastin 50.9 seconds 24.0-35.0 H APTT Heparin Time (test code = Therapeuti c Range: Partial Thromboplastin 47.9- 80.4 seconds Time) Automated Acmkhpdzcwnj7529-33-63 10:07:27 Test Item Value Reference Range Interpretation Comments Neutro Auto (test code = Neutro 77.6 % N Auto) Lymph Auto (test code = Lymph Auto) 12.1 % N Pope Auto (test code = Pope Auto) 7.4 % N Eos, Auto (test code = Eos, Auto) 2.6 % N Basophil Auto (test code = Basophil 0.3 % N Auto) Neutro Absolute (test code = Neutro 13.7 x10 2.7-7.3 H Absolute) Lymph Absolute (test code = Lymph 2.1 x10 0.8-3.5 Absolute) Pope Absolute (test code = Pope 1.3 x10 0.3-0.9 H Absolute) Eos Absolute (test code = Eos 0.5 x10 0.0-0.3 H Absolute) Baso Absolute (test code = Baso 0.1 x10 0.0-0.1 Absolute) Complete Blood Count with Zzfbvrvlnpyz5918-22-79 10:07:26 Test Item Value Reference Range Interpretation [...] = Slide Review) GL_SET_SLIDE _REVIEW_A UTO POC [id number] 09:42:39 Test Item Value Reference Range Interpretation Comments Glucose POC (test 251 mg/dL 74-106 H POC Glucos e used on code = Glucose POC) critical ly ill patients is considered " off-label use" and has no t been cleared or appr zuly by the FDA. Altern ative testing methods should be considered i f the patient is crit ically ill. Comprehensive Metabolic [id number] 09:41:09 Test Item Value Reference Range Interpretation [...] = AST) 26 IntlUnit/L 15-37 Comprehensive Metabolic Nigfg1164-85-15 09:41:09 Test Item Value Reference Range Interpretation [...] 43 mL/min/1.73 m2 N AA) Comprehensive Metabolic [id number] 09:41:09 Test Item Value Reference Range Interpretation [...] 36 mL/min/1.73 m2 N eGFR Non-AA) POC Lkbcchx9634-14-13 06:29:42 Test Item Value Reference Range Interpretation Comments Glucose POC (test 212 mg/dL 74-106 H POC Glucos e used on code = Glucose POC) critical ly ill patients is considered " off-label use" and has no t been cleared or appr zuly by the FDA. Altern ative testing methods should be considered i f the patient is crit ically ill. POC [id number] 18:28:55 Test Item Value Reference Range Interpretation [...] crit ically ill. Urinalysis with Culture, if takhmtbjl6996-52-64 17:39:47 Test Item Value Reference Range Interpretation [...] UA Micro Ind?) rule GL_SET_UA_MICRO _IND Urinalysis Rffxmzcfstp2796-84-59 17:39:47 Test Item Value Reference Range Interpretation [...] /LPF 1-6 Cast) XR Chest 1 View Akbiidn6719-97-11 14:48:59Patient: JANIS PATTERSON Date/Time03/21/202014:30 CDTReason for Examfever, [...] Ramiro, Huagned (Electronic Signature): 03/21/2020 2:48 pmPOC [id number] 11:48:05 Test Item Value Reference Range Interpretation Comments Glucose POC (test 261 mg/dL 74-106 H POC Glucos e used on code = Glucose POC) critical ly ill patients is considered " off-label use" and has no t been cleared or appr zuly by the FDA. Altern ative testing methods should be considered i f the patient is crit ically ill. Basic Metabolic [id number] 09:58:13 Test Item Value Reference Range Interpretation [...] 8.1 mg/dL 8.5-10.1 L Level) Basic Metabolic [id number] 09:58:13 Test Item Value Reference Range Interpretation [...] 40 mL/min/1.73 m2 N AA) Basic Metabolic [id number] 09:58:13 Test Item Value Reference Range Interpretation [...] N eGFR Non-AA) Complete Blood Count with Cygpdiyvzkdv8457-75-04 09:37:12 Test Item Value Reference Range Interpretation [...] = Slide Review) GL_SET_SLIDE _REVIEW_A UTO Automated Nqgpjrbfvjyv5214-60-85 09:37:12 Test Item Value Reference Range Interpretation Comments Neutro Auto (test code = Neutro 70.4 % N Auto) Lymph Auto (test code = Lymph Auto) 18.0 % N Pope Auto (test code = Pope Auto) 8.7 % N Eos, Auto (test code = Eos, Auto) 2.5 % N Basophil Auto (test code = Basophil 0.4 % N Auto) Neutro Absolute (test code = Neutro 11.3 x10 2.7-7.3 H Absolute) Lymph Absolute (test code = Lymph 2.9 x10 0.8-3.5 Absolute) Pope Absolute (test code = Pope 1.4 x10 0.3-0.9 H Absolute) Eos Absolute (test code = Eos 0.4 x10 0.0-0.3 H Absolute) Baso Absolute (test code = Baso 0.1 x10 0.0-0.1 Absolute) POC Eyqtryy7453-42-14 06:40:31 Test Item Value Reference Range Interpretation Comments Glucose POC (test 296 mg/dL 74-106 H POC Glucos e used on code = Glucose POC) critical ly ill patients is considered " off-label use" and has no t been cleared or appr zuly by the FDA. Altern ative testing methods should be considered i f the patient is crit ically ill. POC Xsygoch4431-04-00 21:40:20 Test Item Value Reference Range Interpretation Comments Glucose POC (test 226 mg/dL 74-106 H POC Glucos e used on code = Glucose POC) critical ly ill patients is considered " off-label use" and has no t been cleared or appr zuly by the FDA. Altern ative testing methods should be considered i f the patient is crit ically ill. POC [id number] 20:05:47 Test Item Value Reference Range Interpretation Comments Glucose POC (test 265 mg/dL 74-106 H POC Glucos e used on code = Glucose POC) critical ly ill patients is considered " off-label use" and has no t been cleared or appr zuly by the FDA. Altern ative testing methods should be considered i f the patient is crit ically ill. POC [id number] 20:05:46 Test Item Value Reference Range Interpretation Comments Glucose POC (test 250 mg/dL 74-106 H POC Glucos e used on code = Glucose POC) critical ly ill patients is considered " off-label use" and has no t been cleared or appr zuly by the FDA. Altern ative testing methods should be considered i f the patient is crit ically ill. POC Rkafgpr2361-05-77 06:00:28 Test Item Value Reference Range Interpretation Comments Glucose POC (test 242 mg/dL 74-106 H POC Glucos e used on code = Glucose POC) critical ly ill patients is considered " off-label use" and has no t been cleared or appr zuly by the FDA. Altern ative testing methods should be considered i f the patient is crit ically ill. POC [id number] 06:00:23 Test Item Value Reference Range Interpretation Comments Glucose POC (test 200 mg/dL 74-106 H POC Glucos e used on code = Glucose POC) critical ly ill patients is considered " off-label use" and has no t been cleared or appr zuly by the FDA. Altern ative testing methods should be considered i f the patient is crit ically ill. POC [id number] 06:00:20 Test Item Value Reference Range Interpretation Comments Glucose POC (test 203 mg/dL 74-106 H POC Glucos e used on code = Glucose POC) critical ly ill patients is considered " off-label use" and has no t been cleared or appr zuly by the FDA. Altern ative testing methods should be considered i f the patient is crit ically ill. POC Sqkmzlp3075-18-17 16:06:06 Test Item Value Reference Range Interpretation Comments Glucose POC (test 204 mg/dL 74-106 H POC Glucos e used on code = Glucose POC) critical ly ill patients is considered " off-label use" and has no t been cleared or appr zuly by the FDA. Altern ative testing methods should be considered i f the patient is crit ically ill. CT Brain/Head w/o Dddmzxcs9490-09-48 14:51:33Patient: JANIS PATTERSON Date/Time03/19/202014:20 CDTReason for ExamCVA-repeat [...] ASigned (Electronic Signature): 03/19/2020 2:51 pmRenal Function [id number] 05:30:05 Test Item Value Reference Range Interpretation [...] 2.7 mg/dL 2.5-4.9 Phosphorus Level) Renal Function [id number] 05:30:05 Test Item Value Reference Range Interpretation [...] mg/dL 2.5-4.9 = Phosphorus Level) Renal Function [id number] 05:30:05 Test Item Value Reference Range Interpretation [...] = Phosphorus Level) Complete Blood Count with Xjdhvvzktlxo8511-23-70 05:26:56 Test Item Value Reference Range Interpretation [...] = Slide Review) GL_SET_SLIDE _REVIEW_A UTO Automated [id number] 05:26:56 Test Item Value Reference Range Interpretation Comments Neutro Auto (test code = Neutro Auto) 67.3 % N Lymph Auto (test code = Lymph Auto) 17.3 % N Pope Auto (test code = Pope Auto) 11.6 % N Eos, Auto (test code = Eos, Auto) 3.5 % N Basophil Auto (test code = Basophil 0.3 % N Auto) Neutro Absolute (test code = Neutro 8.8 x10 2.7-7.3 H Absolute) Lymph Absolute (test code = Lymph 2.3 x10 0.8-3.5 Absolute) Pope Absolute (test code = Pope 1.5 x10 0.3-0.9 H Absolute) Eos Absolute (test code = Eos 0.5 x10 0.0-0.3 H Absolute) Baso Absolute (test code = Baso 0.0 x10 0.0-0.1 Absolute) POC [id number] 23:46:57 Test Item Value Reference Range Interpretation Comments Glucose POC (test 181 mg/dL 74-106 H POC Glucos e used on code = Glucose POC) critical ly ill patients is considered " off-label use" and has no t been cleared or appr zuly by the FDA. Altern ative testing methods should be considered i f the patient is crit ically ill. POC [id number] 16:00:47 Test Item Value Reference Range Interpretation Comments Glucose POC (test 169 mg/dL 74-106 H POC Glucos e used on code = Glucose POC) critical ly ill patients is considered " off-label use" and has no t been cleared or appr zuly by the FDA. Altern ative testing methods should be considered i f the patient is crit ically ill. POC [id number] 11:19:25 Test Item Value Reference Range Interpretation Comments Glucose POC (test 166 mg/dL 74-106 H POC Glucos e used on code = Glucose POC) critical ly ill patients is considered " off-label use" and has no t been cleared or appr zuly by the FDA. Altern ative testing methods should be considered i f the patient is crit ically ill. Phosphorus [id number] 06:13:20 Test Item Value Reference Range Interpretation Comments Phosphorus Level (test code = 3.4 mg/dL 2.5-4.9 Phosphorus Level) Comprehensive Metabolic [id number] 06:13:19 Test Item Value Reference Range Interpretation [...] 23 mL/min/1.73 m2 N AA) Comprehensive Metabolic [id number] 06:13:19 Test Item Value Reference Range Interpretation [...] mL/min/1.73 m2 N eGFR Non-AA) Comprehensive Metabolic [id number] 06:13:19 Test Item Value Reference Range Interpretation [...] 19 mL/min/1.73 m2 N eGFR Non-AA) POC [id number] 06:01:01 Test Item Value Reference Range Interpretation Comments Glucose POC (test 85 mg/dL 74-106 POC Glucos e used on code = Glucose POC) critical ly ill patients is considered " off-label use" and has no t been cleared or appr zuly by the FDA. Altern ative testing methods should be considered i f the patient is crit ically ill. POC [id number] 05:28:40 Test Item Value Reference Range Interpretation Comments Glucose POC (test 88 mg/dL 74-106 POC Glucos e used on code = Glucose POC) critical ly ill patients is considered " off-label use" and has no t been cleared or appr zuly by the FDA. Altern ative testing methods should be considered i f the patient is crit ically ill. POC [id number] 05:28:39 Test Item Value Reference Range Interpretation Comments Glucose POC (test 103 mg/dL 74-106 POC Glucos e used on code = Glucose POC) critical ly ill patients is considered " off-label use" and has no t been cleared or appr zuly by the FDA. Altern ative testing methods should be considered i f the patient is crit ically ill. Complete Blood Count with [id number] 05:18:17 Test Item Value Reference Range Interpretation [...] = Slide Review) GL_SET_SLIDE _REVIEW_A UTO Automated [id number] 05:18:17 Test Item Value Reference Range Interpretation Comments Neutro Auto (test code = Neutro Auto) 65.6 % N Lymph Auto (test code = Lymph Auto) 18.1 % N Pope Auto (test code = Pope Auto) 13.5 % N Eos, Auto (test code = Eos, Auto) 2.4 % N Basophil Auto (test code = Basophil 0.4 % N Auto) Neutro Absolute (test code = Neutro 9.1 x10 2.7-7.3 H Absolute) Lymph Absolute (test code = Lymph 2.5 x10 0.8-3.5 Absolute) Pope Absolute (test code = Pope 1.9 x10 0.3-0.9 H Absolute) Eos Absolute (test code = Eos 0.3 x10 0.0-0.3 Absolute) Baso Absolute (test code = Baso 0.1 x10 0.0-0.1 Absolute) CT Brain/Head w/o [id number] 12:26:51Patient: JANIS PATTERSON Date/Time03/17/202012:10 CDTReason for ExamAltered [...] Ramiro, Huagndebby (Electronic Signature): 03/17/2020 12:26 pmManual [id number] 04:05:02 Test Item Value Reference Range Interpretation [...] = Lymph 4.3 0.8-3.5 H Man Abs) Pope Man Abs (test code = Pope 1.4 0.3-0.9 H Man Abs) Eos Man [...] = Plt Normal Normal Estimation) Basic Metabolic [id number] 04:00:24 Test Item Value Reference Range Interpretation [...] Calcium 8.6 mg/dL 8.5-10.1 Level) Basic Metabolic [id number] 04:00:24 Test Item Value Reference Range Interpretation [...] 17 mL/min/1.73 m2 N AA) Basic Metabolic [id number] 04:00:24 Test Item Value Reference Range Interpretation [...] N eGFR Non-AA) Complete Blood Count with [id number] 03:39:33 Test Item Value Reference Range Interpretation [...] code = Slide Manual N Review) POC [id number] 20:54:43 Test Item Value Reference Range Interpretation Comments Glucose POC (test 92 mg/dL 74-106 POC Glucos e used on code = Glucose POC) critical ly ill patients is considered " off-label use" and has no t been cleared or appr zuly by the FDA. Altern ative testing methods should be considered i f the patient is crit ically ill. POC [id number] 18:24:58 Test Item Value Reference Range Interpretation Comments Glucose POC (test 107 mg/dL 74-106 H POC Glucos e used on code = Glucose POC) critical ly ill patients is considered " off-label use" and has no t been cleared or appr zuly by the FDA. Altern ative testing methods should be considered i f the patient is crit ically ill. POC [id number] 14:58:35 Test Item Value Reference Range Interpretation Comments Glucose POC (test 93 mg/dL 74-106 POC Glucos e used on code = Glucose POC) critical ly ill patients is considered " off-label use" and has no t been cleared or appr zuly by the FDA. Altern ative testing methods should be considered i f the patient is crit ically ill. POC [id number] 10:27:27 Test Item Value Reference Range Interpretation Comments Glucose POC (test 113 mg/dL 74-106 H POC Glucos e used on code = Glucose POC) critical ly ill patients is considered " off-label use" and has no t been cleared or appr zuly by the FDA. Altern ative testing methods should be considered i f the patient is crit ically ill. Basic Metabolic [id number] 05:21:17 Test Item Value Reference Range Interpretation [...] Calcium 8.6 mg/dL 8.5-10.1 Level) Basic Metabolic [id number] 05:21:17 Test Item Value Reference Range Interpretation [...] 13 mL/min/1.73 m2 N AA) Basic Metabolic [id number] 05:21:17 Test Item Value Reference Range Interpretation [...] N eGFR Non-AA) Complete Blood Count with Uqkneefpengy6471-64-94 04:59:06 Test Item Value Reference Range Interpretation [...] = Slide Review) GL_SET_SLIDE _REVIEW_A UTO Automated Rytdvidfcycc3293-20-23 04:59:06 Test Item Value Reference Range Interpretation Comments Neutro Auto (test code = Neutro Auto) 63.4 % N Lymph Auto (test code = Lymph Auto) 18.4 % N Pope Auto (test code = Pope Auto) 12.2 % N Eos, Auto (test code = Eos, Auto) 5.5 % N Basophil Auto (test code = Basophil 0.5 % N Auto) Neutro Absolute (test code = Neutro 7.6 x10 2.7-7.3 H Absolute) Lymph Absolute (test code = Lymph 2.2 x10 0.8-3.5 Absolute) Pope Absolute (test code = Pope 1.5 x10 0.3-0.9 H Absolute) Eos Absolute (test code = Eos 0.7 x10 0.0-0.3 H Absolute) Baso Absolute (test code = Baso 0.1 x10 0.0-0.1 Absolute) POC [id number] 02:35:32 Test Item Value Reference Range Interpretation Comments Glucose POC (test 125 mg/dL 74-106 H POC Glucos e used on code = Glucose POC) critical ly ill patients is considered " off-label use" and has no t been cleared or appr zuly by the FDA. Altern ative testing methods should be considered i f the patient is crit ically ill. POC Vwwcqtx1406-20-13 18:41:51 Test Item Value Reference Range Interpretation Comments Glucose POC (test 126 mg/dL 74-106 H POC Glucos e used on code = Glucose POC) critical ly ill patients is considered " off-label use" and has no t been cleared or appr zuly by the FDA. Altern ative testing methods should be considered i f the patient is crit ically ill. POC [id number] 12:05:47 Test Item Value Reference Range Interpretation Comments Glucose POC (test 126 mg/dL 74-106 H POC Glucos e used on code = Glucose POC) critical ly ill patients is considered " off-label use" and has no t been cleared or appr zuly by the FDA. Altern ative testing methods should be considered i f the patient is crit ically ill. XR Abdomen 2 Irkzp1091-57-23 07:26:36Patient: JANIS PATTERSON Date/Time03/15/2020 06:30 CDTReason for [...] Craig ASigned (Electronic Signature): 03/15/2020 7:26 amPOC [id number] 06:35:09 Test Item Value Reference Range Interpretation Comments Glucose POC (test 126 mg/dL 74-106 H POC Glucos e used on code = Glucose POC) critical ly ill patients is considered " off-label use" and has no t been cleared or appr zuly by the FDA. Altern ative testing methods should be considered i f the patient is crit ically ill. Comprehensive Metabolic [id number] 06:02:17 Test Item Value Reference Range Interpretation [...] mL/min/1.73 m2 N eGFR Non-AA) Comprehensive Metabolic [id number] 06:02:17 Test Item Value Reference Range Interpretation [...] mL/min/1.73 m2 N eGFR Non-AA) Comprehensive Metabolic [id number] 06:02:17 Test Item Value Reference Range Interpretation [...] N eGFR Non-AA) Complete Blood Count with [id number] 04:35:24 Test Item Value Reference Range Interpretation [...] = Slide Review) GL_SET_SLIDE _REVIEW_A UTO Automated [id number] 04:35:24 Test Item Value Reference Range Interpretation Comments Neutro Auto (test code = Neutro Auto) 76.2 % N Lymph Auto (test code = Lymph Auto) 11.5 % N Pope Auto (test code = Pope Auto) 9.1 % N Eos, Auto (test code = Eos, Auto) 2.7 % N Basophil Auto (test code = Basophil 0.5 % N Auto) Neutro Absolute (test code = Neutro 9.8 x10 2.7-7.3 H Absolute) Lymph Absolute (test code = Lymph 1.5 x10 0.8-3.5 Absolute) Pope Absolute (test code = Pope 1.2 x10 0.3-0.9 H Absolute) Eos Absolute (test code = Eos 0.3 x10 0.0-0.3 Absolute) Baso Absolute (test code = Baso 0.1 x10 0.0-0.1 Absolute) POC Sfefjyn7966-15-23 04:17:11 Test Item Value Reference Range Interpretation Comments Glucose POC (test 113 mg/dL 74-106 H POC Glucos e used on code = Glucose POC) critical ly ill patients is considered " off-label use" and has no t been cleared or appr zuly by the FDA. Altern ative testing methods should be considered i f the patient is crit ically ill. POC [id number] 17:07:50 Test Item Value Reference Range Interpretation Comments Glucose POC (test 103 mg/dL 74-106 POC Glucos e used on code = Glucose POC) critical ly ill patients is considered " off-label use" and has no t been cleared or appr zuly by the FDA. Altern ative testing methods should be considered i f the patient is crit ically ill. POC [id number] 17:07:39 Test Item Value Reference Range Interpretation [...] crit ically ill. XR Chest 1 View Lpfunkp9837-52-76 15:46:40Patient: JANIS PATTERSON Date/Time03/14/2020 15:19 CDTReason for [...] (Electronic Signature): 03/14/2020 3:46 pmXR Abdomen 2 [id number] 07:34:40Patient: JANIS PATTERSON Date/Time03/14/2020 06:01 CDTReason for [...] Craig ASigned (Electronic Signature): 03/14/2020 7:34 amPOC [id number] 05:01:53 Test Item Value Reference Range Interpretation Comments Glucose POC (test 126 mg/dL 74-106 H POC Glucos e used on code = Glucose POC) critical ly ill patients is considered " off-label use" and has no t been cleared or appr zuly by the FDA. Altern ative testing methods should be considered i f the patient is crit ically ill. Comprehensive Metabolic [id number] 04:22:14 Test Item Value Reference Range Interpretation [...] code = AST) 32 IntlUnit/L 15-37 Lipase [id number] 04:22:14 Test Item Value Reference Range Interpretation Comments Lipase Level (test code = 167 IntlUnit/L 73-393 Lipase Level) Comprehensive Metabolic [id number] 04:22:14 Test Item Value Reference Range Interpretation [...] 11 mL/min/1.73 m2 N AA) Comprehensive Metabolic [id number] 04:22:14 Test Item Value Reference Range Interpretation [...] N eGFR Non-AA) Complete Blood Count with [id number] 04:00:46 Test Item Value Reference Range Interpretation [...] = Slide Review) GL_SET_SLIDE _REVIEW_A UTO Automated Jvwhdsnkfihl8527-39-11 04:00:46 Test Item Value Reference Range Interpretation Comments Neutro Auto (test code = Neutro 75.2 % N Auto) Lymph Auto (test code = Lymph Auto) 13.8 % N Pope Auto (test code = Pope Auto) 7.6 % N Eos, Auto (test code = Eos, Auto) 3.1 % N Basophil Auto (test code = Basophil 0.3 % N Auto) Neutro Absolute (test code = Neutro 11.3 x10 2.7-7.3 H Absolute) Lymph Absolute (test code = Lymph 2.1 x10 0.8-3.5 Absolute) Pope Absolute (test code = Pope 1.2 x10 0.3-0.9 H Absolute) Eos Absolute (test code = Eos 0.5 x10 0.0-0.3 H Absolute) Baso Absolute (test code = Baso 0.0 x10 0.0-0.1 Absolute) POC [id number] 21:27:38 Test Item Value Reference Range Interpretation Comments Glucose POC (test 176 mg/dL 74-106 H POC Glucos e used on code = Glucose POC) critical ly ill patients is considered " off-label use" and has no t been cleared or appr zuly by the FDA. Altern ative testing methods should be considered i f the patient is crit ically ill. POC [id number] 21:27:31 Test Item Value Reference Range Interpretation Comments Glucose POC (test 141 mg/dL 74-106 H POC Glucos e used on code = Glucose POC) critical ly ill patients is considered " off-label use" and has no t been cleared or appr zuly by the FDA. Altern ative testing methods should be considered i f the patient is crit ically ill. POC Ulgcndg9416-09-99 20:03:58 Test Item Value Reference Range Interpretation Comments Glucose POC (test 130 mg/dL 74-106 H POC Glucos e used on code = Glucose POC) critical ly ill patients is considered " off-label use" and has no t been cleared or appr zuly by the FDA. Altern ative testing methods should be considered i f the patient is crit ically ill. Red Blood Cells Liqapgyxyjyd8845-12-70 05:08:02 Test Item Value Reference Range Interpretation Comments # of Units (test code = 2 N # of Units) RBC Trn Reason (test High risk, even if N code = RBC Trn Reason) Hgb > 7 RBC Product Ready (test RBC Ready code = RBC Product Ready) Automated [id number] 04:40:58 Test Item Value Reference Range Interpretation Comments Neutro Auto (test code = Neutro 75.6 % N Auto) Lymph Auto (test code = Lymph Auto) 15.7 % N Pope Auto (test code = Pope Auto) 7.2 % N Eos, Auto (test code = Eos, Auto) 1.1 % N Basophil Auto (test code = Basophil 0.4 % N Auto) Neutro Absolute (test code = Neutro 12.3 x10 2.7-7.3 H Absolute) Lymph Absolute (test code = Lymph 2.6 x10 0.8-3.5 Absolute) Pope Absolute (test code = Pope 1.2 x10 0.3-0.9 H Absolute) Eos Absolute (test code = Eos 0.2 x10 0.0-0.3 Absolute) Baso Absolute (test code = Baso 0.1 x10 0.0-0.1 Absolute) Complete Blood Count with [id number] 04:40:57 Test Item Value Reference Range Interpretation [...] Slide Review) GL_SET_SLIDE _REVIEW_A UTO Basic Metabolic [id number] 04:37:09 Test Item Value Reference Range Interpretation [...] 7.4 mg/dL 8.5-10.1 L Level) Basic Metabolic [id number] 04:37:09 Test Item Value Reference Range Interpretation [...] 13 mL/min/1.73 m2 N AA) Basic Metabolic [id number] 04:37:09 Test Item Value Reference Range Interpretation [...] 11 mL/min/1.73 m2 N eGFR Non-AA) POC [id number] 20:05:34 Test Item Value Reference Range Interpretation Comments Glucose POC (test 176 mg/dL 74-106 H POC Glucos e used on code = Glucose POC) critical ly ill patients is considered " off-label use" and has no t been cleared or appr zuly by the FDA. Altern ative testing methods should be considered i f the patient is crit ically ill. POC Pdaojma7514-04-86 20:05:31 Test Item Value Reference Range Interpretation Comments Glucose POC (test 196 mg/dL 74-106 H POC Glucos e used on code = Glucose POC) critical ly ill patients is considered " off-label use" and has no t been cleared or appr zuly by the FDA. Altern ative testing methods should be considered i f the patient is crit ically ill. POC [id number] 14:07:30 Test Item Value Reference Range Interpretation Comments Glucose POC (test 214 mg/dL 74-106 H POC Glucos e used on code = Glucose POC) critical ly ill patients is considered " off-label use" and has no t been cleared or appr zuly by the FDA. Altern ative testing methods should be considered i f the patient is crit ically ill. Comprehensive Metabolic [id number] 13:32:29 Test Item Value Reference Range Interpretation [...] = AST) 30 IntlUnit/L 15-37 Comprehensive Metabolic [id number] 13:32:29 Test Item Value Reference Range Interpretation [...] code = eGFR Non-AA) m2 Comprehensive Metabolic [id number] 13:32:29 Test Item Value Reference Range Interpretation [...] eGFR Non-AA) m2 Complete Blood Count with [id number] 13:08:12 Test Item Value Reference Range Interpretation [...] = Slide Review) GL_SET_SLIDE _REVIEW_A UTO Automated [id number] 13:08:12 Test Item Value Reference Range Interpretation Comments Neutro Auto (test code = Neutro 80.7 % N Auto) Lymph Auto (test code = Lymph Auto) 11.4 % N Pope Auto (test code = Pope Auto) 6.9 % N Eos, Auto (test code = Eos, Auto) 0.5 % N Basophil Auto (test code = Basophil 0.5 % N Auto) Neutro Absolute (test code = Neutro 13.5 x10 2.7-7.3 H Absolute) Lymph Absolute (test code = Lymph 1.9 x10 0.8-3.5 Absolute) Pope Absolute (test code = Pope 1.2 x10 0.3-0.9 H Absolute) Eos Absolute (test code = Eos 0.1 x10 0.0-0.3 Absolute) Baso Absolute (test code = Baso 0.1 x10 0.0-0.1 Absolute) POC [id number] 05:48:53 Test Item Value Reference Range Interpretation Comments Glucose POC (test 174 mg/dL 74-106 H POC Glucos e used on code = Glucose POC) critical ly ill patients is considered " off-label use" and has no t been cleared or appr zuly by the FDA. Altern ative testing methods should be considered i f the patient is crit ically ill. Red Blood Cells [id number] 00:56:23 Test Item Value Reference Range Interpretation Comments # of Units (test code = 2 N # of Units) RBC Trn Reason (test Other (please N code = RBC Trn Reason) specify) RBC Product Ready (test RBC Ready code = RBC Product Ready) [id number] 23:05:30 Test Item Value Reference Range Interpretation Comments Previous History (test code Yes Prev History = Previous History) BBID (test code = BBID) [id number] Methodology (test code = Ortho-Vision(OV) Methodology) Anti-A (test code = Anti-A) 4+ Anti-B (test code = Anti-B) 4+ Anti-D (test code = Anti-D) 4+ DCon (test code = DCon) 0 A1 (test code = A1) 0 B cells (test code = B 0 cells) ABORh (test code = ABORh) AB POS 2C [id number] 23:05:30 Test Item Value Reference Range Interpretation Comments Methodology (test code = Ortho-Vision(OV) Methodology) SC1 (test code = SC1) 0 SC2 (test code = SC2) 0 Antibody Screen (2C) (test Negative ABSC code = Antibody Screen (2C)) Basic Metabolic [id number] 22:42:20 Test Item Value Reference Range Interpretation [...] 7.7 mg/dL 8.5-10.1 L Level) Basic Metabolic [id number] 22:42:20 Test Item Value Reference Range Interpretation [...] 19 mL/min/1.73 m2 N AA) Basic Metabolic [id number] 22:42:20 Test Item Value Reference Range Interpretation [...] N eGFR Non-AA) Complete Blood Count with Ehtjarbretua9571-31-61 22:23:44 Test Item Value Reference Range Interpretation [...] = Slide Review) GL_SET_SLIDE _REVIEW_A UTO Automated [id number] 22:23:44 Test Item Value Reference Range Interpretation Comments Neutro Auto (test code = Neutro Auto) 75.1 % N Lymph Auto (test code = Lymph Auto) 15.7 % N Pope Auto (test code = Pope Auto) 8.8 % N Eos, Auto (test code = Eos, Auto) 0.1 % N Basophil Auto (test code = Basophil 0.3 % N Auto) Neutro Absolute (test code = Neutro 9.4 x10 2.7-7.3 H Absolute) Lymph Absolute (test code = Lymph 2.0 x10 0.8-3.5 Absolute) Pope Absolute (test code = Pope 1.1 x10 0.3-0.9 H Absolute) Eos Absolute (test code = Eos 0.0 x10 0.0-0.3 Absolute) Baso Absolute (test code = Baso 0.0 x10 0.0-0.1 Absolute) POC [id number] 21:25:30 Test Item Value Reference Range Interpretation Comments Glucose POC (test 283 mg/dL 74-106 H POC Glucos e used on code = Glucose POC) critical ly ill patients is considered " off-label use" and has no t been cleared or appr zuly by the FDA. Altern ative testing methods should be considered i f the patient is crit ically ill. POC [id number] 16:33:28 Test Item Value Reference Range Interpretation Comments Glucose POC (test 267 mg/dL 74-106 H POC Glucos e used on code = Glucose POC) critical ly ill patients is considered " off-label use" and has no t been cleared or appr zuly by the FDA. Altern ative testing methods should be considered i f the patient is crit ically ill. Basic Metabolic [id number] 14:17:33 Test Item Value Reference Range Interpretation Comments Sodium Level (test 135 mmol/L 136-145 L code = Sodium Level) Potassium Level (test 6.1 mmol/L 3.5-5.1 [facility] = Potassium 03/11/2020 1 4:17:22 [...] 8.5-10.1 code = Calcium Level) Basic Metabolic Jxaia0660-64-92 14:17:33 Test Item Value Reference Range Interpretation [...] mL/min/1.73 N eGFR AA) m2 Basic Metabolic Zcvza8632-90-90 14:17:33 Test Item Value Reference Range Interpretation [...] eGFR Non-AA) m2 Complete Blood Count with Vutgvovrbhys1046-89-32 13:55:20 Test Item Value Reference Range Interpretation [...] = Slide Review) GL_SET_SLIDE _REVIEW_A UTO Automated Hhmvjdvyvmds4502-50-92 13:55:20 Test Item Value Reference Range Interpretation Comments Neutro Auto (test code = Neutro 85.0 % N Auto) Lymph Auto (test code = Lymph Auto) 9.6 % N Pope Auto (test code = Pope Auto) 5.0 % N Eos, Auto (test code = Eos, Auto) 0.1 % N Basophil Auto (test code = Basophil 0.3 % N Auto) Neutro Absolute (test code = Neutro 12.0 x10 2.7-7.3 H Absolute) Lymph Absolute (test code = Lymph 1.4 x10 0.8-3.5 Absolute) Pope Absolute (test code = Pope 0.7 x10 0.3-0.9 Absolute) Eos Absolute (test code = Eos 0.0 x10 0.0-0.3 Absolute) Baso Absolute (test code = Baso 0.0 x10 0.0-0.1 Absolute) POC Xierdgj9148-79-54 13:51:38 Test Item Value Reference Range Interpretation Comments Glucose POC (test 341 mg/dL 74-106 H POC Glucos e used on code = Glucose POC) critical ly ill patients is considered " off-label use" and has no t been cleared or appr zuly by the FDA. Altern ative testing methods should be considered i f the patient is crit ically ill. POC G3+ Trq5523-32-96 13:02:53 Test Item Value Reference Range Interpretation [...] = R Radial N Performing Site) POC Dkmncjs8579-74-01 10:04:37 Test Item Value Reference Range Interpretation Comments Glucose POC (test 197 mg/dL 74-106 H POC Glucos e used on code = Glucose POC) critical ly ill patients is considered " off-label use" and has no t been cleared or appr zuly by the FDA. Altern ative testing methods should be considered i f the patient is crit ically ill. POC Fpuphug1353-61-10 07:57:55 Test Item Value Reference Range Interpretation [...] crit ically ill. XR Chest 1 View Kjftqpu7009-34-51 06:44:47Patient: JANIS PATTERSON Date/Time03/11/2020 01:10 CDTReason for Exampre op;Other (please specify)ReportXR CHEST 1 VIEW FRONTALDIAGNOSIS: Preop for respiratory clearance and appendectomyThe heart and mediastinum are stable. No consolidation or pleural fluid is seen.IMPRESSION: No active disease and no change since 02/21/2020. Final Dictated by: MD Patty, Phu Zazuetactated DT/TM: 03/11/2020 6:43 amSigned by: MD Brambila Michael JackSigned (Electronic Signature): 03/11/2020 6:44 amUrine Xowgdsb0482-32-94 02:35:50Multiple organisms isolated. Probable contaminant. Suggest sterile recollect. No further workup.Urinalysis Gmfyqxcdeos1140-08-77 02:09:15 Test Item Value Reference Range Interpretation Comments UA WBC (test code = UA WBC) 51-100 /HPF 0-5 A UA RBC (test code = UA RBC) 0-4 /HPF 0-4 UA Bacteria (test code = UA 3+ /HPF Negative A Bacteria) UA Squam Epithelial (test code = 0-20 /LPF 0-20 UA Squam Epithelial) Urinalysis with Culture, if vemtahvyp5449-67-48 02:04:59 Test Item Value Reference Range Interpretation [...] Indicated Not Indicated A Ind?) Partial Thromboplastin Cevy7045-71-52 01:19:59 Test Item Value Reference Range Interpretation Comments Partial Thromboplastin 28.3 seconds 24.0-35.0 APTT Heparin Time (test code = Therapeuti c Range: Partial Thromboplastin 47.9- 80.4 seconds Time) Prothrombin Time and [id number] 01:19:58 Test Item Value Reference Range Interpretation Comments Prothrombin Time (test code = 11.0 seconds 9.2-12.0 Prothrombin Time) INR (test code = INR) 1.0 ratio 0.9-1.2 Magnesium Oemhv7637-03-76 01:14:16 Test Item Value Reference Range Interpretation Comments Magnesium Level (test code = 1.4 mg/dL 1.6-2.6 L Magnesium Level) CT Abdomen and Pelvis w/o Uwxabclr9778-97-00 00:54:11Patient: JANIS PATTERSON Date/Time03/11/2020 00:41 CDTReason for [...] abscess.No urinary system calculus or hydronephrosis.RL: 460AFC: [id number] findings were discussed with Dr. Bee, who [...] = AST) 11 IntlUnit/L 15-37 L Lipase Gxrdc8639-33-89 23:18:17 Test Item Value Reference Range Interpretation Comments Lipase Level (test code = 373 IntlUnit/L 73-393 Lipase Level) Comprehensive Metabolic Rksrq5576-18-28 23:18:17 Test Item Value Reference Range Interpretation [...] >60 mL/min/1.73 m2 N AA) Comprehensive Metabolic Xjbga7869-34-83 23:18:17 Test Item Value Reference Range Interpretation [...] N eGFR Non-AA) Complete Blood Count with Mqzyoqmbmhvx3738-82-42 22:55:17 Test Item Value Reference Range Interpretation [...] = Slide Review) GL_SET_SLIDE _REVIEW_A UTO Automated Fvikdhmkwnzg0908-80-61 22:55:17 Test Item Value Reference Range Interpretation Comments Neutro Auto (test code = Neutro 82.2 % N Auto) Lymph Auto (test code = Lymph Auto) 11.8 % N Pope Auto (test code = Pope Auto) 5.1 % N Eos, Auto (test code = Eos, Auto) 0.3 % N Basophil Auto (test code = Basophil 0.6 % N Auto) Neutro Absolute (test code = Neutro 10.2 x10 2.7-7.3 H Absolute) Lymph Absolute (test code = Lymph 1.5 x10 0.8-3.5 Absolute) Pope Absolute (test code = Pope 0.6 x10 0.3-0.9 Absolute) Eos Absolute (test code = Eos 0.0 x10 0.0-0.3 Absolute) Baso Absolute (test code = Baso 0.1 x10 0.0-0.1 Absolute) EDHQSPA0149-67-53 12:05:00[facility] [place] [address] [id number] IMAGING REPORTPatient Name: JANIS PATTERSONte of Service: [id number]: 59 Sex: F Order #: [id number] Room: OPODOB: 1960 X-Ray Number: [id number] Record Number: [id number] Hospital Number: [id number] Physician: MITCHELL AMBROSIONDOrdering Physician: GARCIA AMBROSIOExam: Ultrasound [...] authenticated by DAVID RIGGS JR 2020-03-07 12:03:22PO Cmuebzg9385-32-57 14:42:28 Test Item Value Reference Range Interpretation Comments Glucose POC (test 227 mg/dL 74-106 H POC Glucos e used on code = Glucose POC) critical ly ill patients is considered " off-label use" and has no t been cleared or appr zuly by the FDA. Altern ative testing methods should be considered i f the patient is crit ically ill. CT Angio Brain/Tson7081-48-61 12:03:04Patient: JANIS PATTERSON Date/Time02/21/202011:39 CDTReason for ExamDizzinessReportHISTORY: [...] JulioSigned (Electronic Signature): 02/21/2020 12:03 pmCT Angio Xsum0824-92-67 12:03:04Patient: JANIS PATTERSON Date/Time02/21/202011:39 CDTReason for ExamConfusionReportHISTORY: [...] crit ically ill. XR Chest 1 View Awwwdjx3646-97-86 10:56:26Patient: JANIS PATTERSON Date/Time02/21/202010:19 CDTReason for ExamShortness [...] Sanchez (Electronic Signature): 02/21/2020 10:56 amComprehensive Metabolic Rxgzf0437-79-83 10:04:12 Test Item Value Reference Range Interpretation [...] = AST) 10 IntlUnit/L 15-37 L Troponin [id number] 10:04:12 Test Item Value Reference Range Interpretation Comments Troponin-I (test code = <0.015 ng/mL 0.010-0.040 Troponin-I) Lipid Tihoj7211-86-31 10:04:12 Test Item Value Reference Range Interpretation Comments Cholesterol Total (test code = 149 mg/dL 0-200 Cholesterol Total) Triglycerides (test code = 127 mg/dL 2-150 Triglycerides) HDL (test code = HDL) 56 mg/dL 45-65 Chol/HDL (test code = Chol/HDL) 3 ratio 0-5 Magnesium Oqczb8510-99-30 10:04:12 Test Item Value Reference Range Interpretation Comments Magnesium Level (test code = 1.3 mg/dL 1.6-2.6 L Magnesium Level) Comprehensive Metabolic Esdsm3336-16-53 10:04:12 Test Item Value Reference Range Interpretation [...] >60 mL/min/1.73 m2 N AA) Comprehensive Metabolic Axuub3393-68-82 10:04:12 Test Item Value Reference Range Interpretation [...] 51 mL/min/1.73 m2 N eGFR Non-AA) Lipid Ownjv5407-57-73 10:04:12 Test Item Value Reference Range Interpretation [...] 3 ratio 0-5 Chol/HDL) Prothrombin Time and [id number] 09:50:20 Test Item Value Reference Range Interpretation Comments Prothrombin Time (test code = 10.1 seconds 9.2-12.0 Prothrombin Time) INR (test code = INR) 1.0 ratio 0.9-1.2 Partial Thromboplastin Wwmi9657-53-27 09:50:20 Test Item Value Reference Range Interpretation Comments Partial Thromboplastin 27.5 seconds 24.0-35.0 APTT Heparin Time (test code = Therapeuti c Range: Partial Thromboplastin 47.9- 80.4 seconds Time) Complete Blood Count with Hwfpxvjjzcow6491-35-60 09:49:12 Test Item Value Reference Range Interpretation [...] = Slide Review) GL_SET_SLIDE _REVIEW_A UTO Automated Oyvhtwnzqtkw3621-01-89 09:49:12 Test Item Value Reference Range Interpretation Comments Neutro Auto (test code = Neutro Auto) 61.8 % N Lymph Auto (test code = Lymph Auto) 30.0 % N Pope Auto (test code = Pope Auto) 5.0 % N Eos, Auto (test code = Eos, Auto) 2.6 % N Basophil Auto (test code = Basophil 0.6 % N Auto) Neutro Absolute (test code = Neutro 7.0 x10 2.7-7.3 Absolute) Lymph Absolute (test code = Lymph 3.4 x10 0.8-3.5 Absolute) Pope Absolute (test code = Pope 0.6 x10 0.3-0.9 Absolute) Eos Absolute (test code = Eos 0.3 x10 0.0-0.3 Absolute) Baso Absolute (test code = Baso 0.1 x10 0.0-0.1 Absolute) CT Brain/Head w/o Xxtyhfhf8491-36-81 09:41:26Patient: JANIS PATTERSON Date/Time02/21/202009:21 CDTReason for ExamAltered [...] with Phu Head and documented in the [employer] system on 02/21/2020 9:41 AM, Message ID [id number]. Final Dictated by: MD Stevens Ramon JulioDictated DT/TM: 02/21/2020 9:38 amSigned by: MD Stevens Ramon JulioSigned (Electronic Sign ature): 02/21/2020 9:41 amPOC Troponin [id number] 09:21:16 Test Item Value Reference Range Interpretation [...] EKG, CKMB, clinicalobserva tions, symptons, etc. POC Ppqtvpn5123-37-87 12:28:18 Test Item Value Reference Range Interpretation Comments Glucose POC (test 212 mg/dL 74-106 H POC Glucos e used on code = Glucose POC) critical ly ill patients is considered " off-label use" and has no t been cleared or appr zuly by the FDA. Altern ative testing methods should be considered i f the patient is crit ically ill. POC Rnanszp6043-26-40 07:20:41 Test Item Value Reference Range Interpretation Comments Glucose POC (test 252 mg/dL 74-106 H POC Glucos e used on code = Glucose POC) critical ly ill patients is considered " off-label use" and has no t been cleared or appr zuly by the FDA. Altern ative testing methods should be considered i f the patient is crit ically ill. Comprehensive Metabolic Ovmyl6138-38-32 04:31:16 Test Item Value Reference Range Interpretation [...] AST) 9 IntlUnit/L 15-37 L Comprehensive Metabolic Hrjhr6590-53-08 04:31:16 Test Item Value Reference Range Interpretation [...] 40 mL/min/1.73 m2 N AA) Comprehensive Metabolic Nfvhl3330-66-96 04:31:16 Test Item Value Reference Range Interpretation [...] N eGFR Non-AA) Complete Blood Count with Kguoehanflmy8103-73-69 04:06:22 Test Item Value Reference Range Interpretation [...] = Slide Review) GL_SET_SLIDE _REVIEW_A UTO Automated Hpkutzsnedsz7466-04-47 04:06:22 Test Item Value Reference Range Interpretation Comments Neutro Auto (test code = Neutro 85.1 % N Auto) Lymph Auto (test code = Lymph Auto) 9.8 % N Pope Auto (test code = Pope Auto) 5.0 % N Basophil Auto (test code = Basophil 0.1 % N Auto) Neutro Absolute (test code = Neutro 14.1 x10 2.7-7.3 H Absolute) Lymph Absolute (test code = Lymph 1.6 x10 0.8-3.5 Absolute) Pope Absolute (test code = Pope 0.8 x10 0.3-0.9 Absolute) Eos Absolute (test code = Eos 0.0 x10 0.0-0.3 Absolute) Baso Absolute (test code = Baso 0.0 x10 0.0-0.1 Absolute) POC Rqwnfud9525-72-73 21:38:32 Test Item Value Reference Range Interpretation Comments Glucose POC (test 340 mg/dL 74-106 H POC Glucos e used on code = Glucose POC) critical ly ill patients is considered " off-label use" and has no t been cleared or appr zuly by the FDA. Altern ative testing methods should be considered i f the patient is crit ically ill. POC Owwuglw2687-03-34 21:38:31 Test Item Value Reference Range Interpretation Comments Glucose POC (test 255 mg/dL 74-106 H POC Glucos e used on code = Glucose POC) critical ly ill patients is considered " off-label use" and has no t been cleared or appr zuly by the FDA. Altern ative testing methods should be considered i f the patient is crit ically ill. POC Mwjjyzd1238-96-29 12:28:25 Test Item Value Reference Range Interpretation Comments Glucose POC (test 330 mg/dL 74-106 H POC Glucos e used on code = Glucose POC) critical ly ill patients is considered " off-label use" and has no t been cleared or appr zuly by the FDA. Altern ative testing methods should be considered i f the patient is crit ically ill. POC Wabyvbi5225-05-49 11:53:50 Test Item Value Reference Range Interpretation [...] crit ically ill. XR Chest 1 View Csnafia6393-20-14 11:38:51Patient: JANIS PATTERSON Date/Time01/04/2020 04:55 CSTReason for [...] code = <0.015 ng/mL 0.010-0.040 Troponin-I) Troponin [id number] 08:09:07 Test Item Value Reference Range Interpretation Comments Troponin-I (test code = <0.015 ng/mL 0.010-0.040 Troponin-I) CT Angio Gpwyjrfpu2178-97-79 05:30:07Patient: JANIS PATTERSON Date/Time01/04/2020 05:21 CSTReason for [...] 01/04/2020 5:30 am Complete Blood Count with Ekxjjvgsavag6904-34-19 04:41:14 Test Item Value Reference Range Interpretation [...] = Slide Review) GL_SET_SLIDE _REVIEW_A UTO Automated Lqwkorehckeu2799-00-68 04:41:14 Test Item Value Reference Range Interpretation Comments Neutro Auto (test code = Neutro Auto) 50.8 % N Lymph Auto (test code = Lymph Auto) 40.4 % N Pope Auto (test code = Pope Auto) 5.0 % N Eos, Auto (test code = Eos, Auto) 3.0 % N Basophil Auto (test code = Basophil 0.8 % N Auto) Neutro Absolute (test code = Neutro 5.9 x10 2.7-7.3 Absolute) Lymph Absolute (test code = Lymph 4.7 x10 0.8-3.5 H Absolute) Pope Absolute (test code = Pope 0.6 x10 0.3-0.9 Absolute) Eos Absolute (test code = Eos 0.4 x10 0.0-0.3 H Absolute) Baso Absolute (test code = Baso 0.1 x10 0.0-0.1 Absolute) Comprehensive Metabolic Qgikr1946-99-66 04:37:09 Test Item Value Reference Range Interpretation [...] AST) 16 IntlUnit/L 15-37 Pro B Natriuretic Ehljlmc0591-35-82 04:37:09 Test Item Value Reference Range Interpretation Comments NT-proBNP (test 75 pg/mL 0-125 < 300 pg/ml - heart code = NT-proBNP) failure un likelyAge less than 50 years, > 450 pg/ml - heart f ailure lilkelyAge 50 - 75 years, > 900 pg/ml - h eart failure likelyA ge greater than 75 years, > 1800 pg/ml - heart f ailure likely Comprehensive Metabolic Titpn3829-17-40 04:37:09 Test Item Value Reference Range Interpretation [...] 56 mL/min/1.73 m2 N AA) Comprehensive Metabolic Zoulh1098-62-23 04:37:09 Test Item Value Reference Range Interpretation [...] m2 N eGFR Non-AA) Prothrombin Time and [id number] 04:29:09 Test Item Value Reference Range Interpretation Comments Prothrombin Time (test code = 10.2 seconds 9.2-12.0 Prothrombin Time) INR (test code = INR) 1.0 ratio 0.9-1.2 Partial Thromboplastin [id number] 04:29:09 Test Item Value Reference Range Interpretation Comments Partial Thromboplastin 24.2 seconds 24.0-35.0 APTT Heparin Time (test code = Therapeuti c Range: Partial Thromboplastin 47.9- 80.4 seconds Time) D-Dimer Dffcajitgcaq1297-13-97 04:29:09 Test Item Value Reference Range Interpretation [...] is of DVT or PEunlikely. POC Troponin [id number] 04:11:54 Test Item Value Reference Range Interpretation [...] tions, symptons, etc. XR Knee 3 Views Nmyew6470-05-60 10:51:31Patient: JANIS PATTERSON Date/Time06/30/2019 10:38 CDTReason for [...] Arthur LSigned (Electronic Signature): 06/30/2019 10:51 amPOC Whhetcy6235-42-64 13:27:29 Test Item Value Reference Range Interpretation [...] crit ically ill. Complete Blood Count with Skzjmmsmvtrj9946-65-52 06:43:46 Test Item Value Reference Range Interpretation [...] = Slide Review) GL_SET_SLIDE _REVIEW_A UTO Automated Ivxqnkuknrjr4445-98-27 06:43:46 Test Item Value Reference Range Interpretation Comments Neutro Auto (test code = Neutro Auto) 68.5 % N Lymph Auto (test code = Lymph Auto) 21.0 % N Pope Auto (test code = Pope Auto) 9.0 % N Eos, Auto (test code = Eos, Auto) 1.3 % N Basophil Auto (test code = Basophil 0.2 % N Auto) Neutro Absolute (test code = Neutro 8.7 x10 2.7-7.3 H Absolute) Lymph Absolute (test code = Lymph 2.7 x10 0.8-3.5 Absolute) Pope Absolute (test code = Pope 1.1 x10 0.3-0.9 H Absolute) Eos Absolute (test code = Eos 0.2 x10 0.0-0.3 Absolute) Baso Absolute (test code = Baso 0.0 x10 0.0-0.1 Absolute) POC Tdsfeby9421-23-62 05:48:52 Test Item Value Reference Range Interpretation Comments Glucose POC (test 173 mg/dL 74-106 H POC Glucos e used on code = Glucose POC) critical ly ill patients is considered " off-label use" and has no t been cleared or appr zuly by the FDA. Altern ative testing methods should be considered i f the patient is crit ically ill. POC Awiubds6912-22-64 20:37:22 Test Item Value Reference Range Interpretation Comments Glucose POC (test 217 mg/dL 74-106 H POC Glucos e used on code = Glucose POC) critical ly ill patients is considered " off-label use" and has no t been cleared or appr zuly by the FDA. Altern ative testing methods should be considered i f the patient is crit ically ill. POC Pkftbkk6081-34-39 16:38:05 Test Item Value Reference Range Interpretation Comments Glucose POC (test 126 mg/dL 74-106 H POC Glucos e used on code = Glucose POC) critical ly ill patients is considered " off-label use" and has no t been cleared or appr zuly by the FDA. Altern ative testing methods should be considered i f the patient is crit ically ill. POC Lhdvesf1832-47-38 11:01:37 Test Item Value Reference Range Interpretation Comments Glucose POC (test 256 mg/dL 74-106 H POC Glucos e used on code = Glucose POC) critical ly ill patients is considered " off-label use" and has no t been cleared or appr zuly by the FDA. Altern ative testing methods should be considered i f the patient is crit ically ill. Basic Metabolic Cqjii3112-95-27 08:13:13 Test Item Value Reference Range Interpretation [...] 8.0 mg/dL 8.5-10.1 L Level) Basic Metabolic Uwzve8455-88-22 08:13:13 Test Item Value Reference Range Interpretation [...] mL/min/1.73 m2 N eGFR Non-AA) Basic Metabolic Auusi2977-67-77 08:13:13 Test Item Value Reference Range Interpretation [...] N eGFR Non-AA) Complete Blood Count with Arxqjwtcsunx4653-45-45 07:55:58 Test Item Value Reference Range Interpretation [...] = Slide Review) GL_SET_SLIDE _REVIEW_A UTO Automated Kemcjhggljtv1258-48-56 07:55:58 Test Item Value Reference Range Interpretation Comments Neutro Auto (test code = Neutro Auto) 63.9 % N Lymph Auto (test code = Lymph Auto) 26.5 % N Pope Auto (test code = Pope Auto) 7.7 % N Eos, Auto (test code = Eos, Auto) 1.4 % N Basophil Auto (test code = Basophil 0.5 % N Auto) Neutro Absolute (test code = Neutro 6.9 x10 2.7-7.3 Absolute) Lymph Absolute (test code = Lymph 2.9 x10 0.8-3.5 Absolute) Pope Absolute (test code = Pope 0.8 x10 0.3-0.9 Absolute) Eos Absolute (test code = Eos 0.2 x10 0.0-0.3 Absolute) Baso Absolute (test code = Baso 0.1 x10 0.0-0.1 Absolute) POC Ckxakev6719-41-56 07:06:01 Test Item Value Reference Range Interpretation Comments Glucose POC (test 161 mg/dL 74-106 H POC Glucos e used on code = Glucose POC) critical ly ill patients is considered " off-label use" and has no t been cleared or appr zuly by the FDA. Altern ative testing methods should be considered i f the patient is crit ically ill. POC Cystats6706-74-28 20:37:15 Test Item Value Reference Range Interpretation Comments Glucose POC (test 139 mg/dL 74-106 H POC Glucos e used on code = Glucose POC) critical ly ill patients is considered " off-label use" and has no t been cleared or appr zuly by the FDA. Altern ative testing methods should be considered i f the patient is crit ically ill. POC Bpiifil4752-90-13 15:32:22 Test Item Value Reference Range Interpretation Comments Glucose POC (test 147 mg/dL 74-106 H POC Glucos e used on code = Glucose POC) critical ly ill patients is considered " off-label use" and has no t been cleared or appr zuly by the FDA. Altern ative testing methods should be considered i f the patient is crit ically ill. POC Jbcpvff2664-70-14 12:58:00 Test Item Value Reference Range Interpretation [...] ill. XR Knee 1 or 2 Views Regwx7182-91-70 10:42:14Patient: JNAIS PATTERSON Date/Time05/10/2019 10:29 CDTReason for ExamArthroplastyReportInformation: Right [...] Gustavo MSigned (Electronic Signature): 05/10/2019 10:42 amPOC Mzbgvvo5478-51-33 06:32:30 Test Item Value Reference Range Interpretation Comments Glucose POC (test 177 mg/dL 74-106 H POC Glucos e used on code = Glucose POC) critical ly ill patients is considered " off-label use" and has no t been cleared or appr zuly by the FDA. Altern ative testing methods should be considered i f the patient is crit ically ill. Red Blood Cells Nucsucwblkza7617-87-56 17:06:46 Test Item Value Reference Range Interpretation Comments # of Units (test code = # of Units) 2 N RBC Trn Reason (test code = RBC Trn Surgery N Reason) RBC Product Ready (test code = RBC RBC Ready Product Ready) ABORh Axiqbt3404-28-00 16:57:21 Test Item Value Reference Range Interpretation Comments Methodology (test code = Test-Tube(TT) Methodology) Anti-A (test code = Anti-A) 4+ Anti-B (test code = Anti-B) 4+ Anti-AB (test code = Anti-AB) NT Anti-D (test code = Anti-D) 4+ ABORh Retype (test code = ABORh AB POS Retype) [id number] 14:41:14 Test Item Value Reference Range Interpretation Comments Previous History (test code No Prev History = Previous History) BBID (test code = BBID) [id number] Methodology (test code = Ortho-Vision(OV) Methodology) Anti-A (test code = Anti-A) 4+ Anti-B (test code = Anti-B) 4+ Anti-D (test code = Anti-D) 4+ DCon (test code = DCon) 0 A1 (test code = A1) 0 B cells (test code = B 0 cells) ABORh (test code = ABORh) AB POS 2C [id number] 14:41:14 Test Item Value Reference Range Interpretation Comments Methodology (test code = Ortho-Vision(OV) Methodology) SC1 (test code = SC1) 0 SC2 (test code = SC2) 0 Antibody Screen (2C) (test Negative ABSC code = Antibody Screen (2C)) Urine [id number] 07:25:17 Test Item Value Reference Range Interpretation [...] coli C Urine Added by GL_SET_CULT_RFLXVitamin D, 75-Ovzgojk3150-46-19 03:08:52 16.6Vitamin D deficiency has been defined by the [place] [employer] and an Endocrine Society practice guideline as alevel of serum 25-OH vitamin D less than 20 ng/mL (1,2).The Endocrine Society went on to further define vitamin Dinsufficiency as a level between 21 and 29 ng/mL (2).1. IOM ([place] [employer]). 2010. Dietary reference intakes for calcium and D. [place]: The National Academies Press.2. Jaswinder MF, Dangelo ROSE, Carlos CHIANG, et al. Evaluation, treatment, and prevention of vitamin D deficiency: an Endocrine Society clinical practice guideline. JCEM. 2010; 96(7):1911- 30.Performed At: [facility] [address] [id number] Kyle L MD Ph:[phone] with Culture, if xjffnqndn7506-35-73 12:21:12 Test Item Value Reference Range Interpretation [...] UA Micro Ind?) rule GL_SET_UA_MICRO _IND Urinalysis Napheluthlp1744-64-83 12:21:12 Test Item Value Reference Range Interpretation [...] Hyal 1-6 /LPF 1-6 Cast) Erythrocyte Sedimentation Aega3638-50-01 11:19:25 Test Item Value Reference Range Interpretation Comments ESR, Westergren (test code = ESR, 108 mm/hr 0-20 H Westergren) Comprehensive Metabolic Gassf1656-99-11 10:46:09 Test Item Value Reference Range Interpretation [...] AST) 7 IntlUnit/L 15-37 L Comprehensive Metabolic Mozjd3964-81-45 10:46:09 Test Item Value Reference Range Interpretation [...] >60 mL/min/1.73 m2 N AA) Comprehensive Metabolic Xiket1781-25-22 10:46:09 Test Item Value Reference Range Interpretation [...] N eGFR Non-AA) XR Knee 3 Views Rofdb2825-30-04 10:37:31Patient: JANIS PATTERSON Date/Time05/04/2019 10:31 CDTReason for [...] Joseph ASigned (Electronic Signature): 05/04/2019 10:37 amAutomated Jqhytaezjwjy0643-69-49 10:34:41 Test Item Value Reference Range Interpretation Comments Neutro Auto (test code = Neutro Auto) 57.2 % N Lymph Auto (test code = Lymph Auto) 33.6 % N Pope Auto (test code = Pope Auto) 4.9 % N Eos, Auto (test code = Eos, Auto) 3.7 % N Basophil Auto (test code = Basophil 0.6 % N Auto) Neutro Absolute (test code = Neutro 5.3 x10 2.7-7.3 Absolute) Lymph Absolute (test code = Lymph 3.1 x10 0.8-3.5 Absolute) Pope Absolute (test code = Pope 0.5 x10 0.3-0.9 Absolute) Eos Absolute (test code = Eos 0.3 x10 0.0-0.3 Absolute) Baso Absolute (test code = Baso 0.1 x10 0.0-0.1 Absolute) Complete Blood Count with [id number] 10:34:40 Test Item Value Reference Range Interpretation [...] Review) GL_SET_SLIDE _REVIEW_A UTO XR Chest 2 [id number] 10:34:37Patient: JANIS PATTERSON Date/Time05/04/2019 10:20 CDTReason for [...] (Electronic Signature): 05/04/2019 10:34 amProthrombin Time and [id number] 10:28:30 Test Item Value Reference Range Interpretation Comments Prothrombin Time (test code = 10.2 seconds 9.2-12.0 Prothrombin Time) INR (test code = INR) 1.0 ratio 0.9-1.2 Partial Thromboplastin [id number] 10:28:30 Test Item Value Reference Range Interpretation Comments Partial Thromboplastin 26.9 seconds 24.0-35.0 APTT Heparin Time (test code = Therapeuti c Range: Partial Thromboplastin 47.9- 80.4 seconds Time) Z-ORG SCREEN MAMMO [id number] 13:05:00BA74 Perez StreetIAGNOSTIC IMAGING REPORTPatient Name: JANIS PATTERSON LDate of Service: 49-08-2720Jig: 58 Sex: F Order #: 100 Room: OPODOB: 1960 X-Ray Number: [id number] Record Number: [id number] Hospital Number: [id number] Physician: MITCHELL AMBROSIONDOrdering Physician: CHAZ AMBROSIOATERAL DIGITAL MAMMOGRAM WITH TOMOSYNTHESIS:CLINICAL HISTORY: Routine annual screening study; family history of breastcancer in a cousin.TECHNIQUE: The craniocaudal and mediolateral views were obtained andtomosynthesis was utilized.SUPPORT DIRECTOR: ANA LILIA ELLIOTT, RT R (M)FINDINGS: The [...] be deferredbecause of a negative mammogram.MAMMOGRAPHY AT [facility] IS ACCREDITED BY THE [place] COLLEGE OFRADIOLOGYTHANK YOU FOR YOUR OUTPATIENT REFERRALjhbElectronically Signed By: David Winston M.D., 03/22/2019 1:03 PMLegally authenticated by JOSE Siu 2019-03-22 13:03:03-ORG SCREEN MAMMO W/CAD +[id number] 10:30:[address] [id number] IMAGING REPORTPatient Name: JANIS PATTERSON LDate of Service: [id number]: 57 Sex: F Order #: [id number] Room: OPODOB: 1960 X- Ray Number: [id number] Record Number: [id number] Hospital Number: [id number] Physician: DAILY, ANANDOrdering [...] be deferredbecause of a negative mammogram.MAMMOGRAPHY AT [facility] IS ACCREDITED BY THE AMERICANCOLLEGE OF RADIOLOGYElectronically Signed By: Tristian Eden M.D., 03/17/2018 10:28AMLegally authenticated by JASMINE ALLISON 2018-03-17 10:28:01CT CHEST ANGIO W/[id number] 08:45:49CTA CHEST WITH 3-D, AND MULTIPLANAR REFORMATS:CLINICAL [...] within the rightlower lobe.XR CHEST SGL 1V, [id number] 07:59:31 XR CHEST SGL 1V, FRONTALDIAGNOSIS: Mid [...] lobe is not absolutely excluded. KNEE 3 [id number] 10:04:[address] [id number] IMAGING REPORTPatient Name: JANIS PATTERSON Izabelate of Service: [id number]: 56 Sex: F Order #: [id number] Room: OPODOB: 1960 X-Ray Number: [id number] Record Number: [id number] Hospital Number: [id number] Physician: GARCIA AMBROSIOOrdering Physician: Aries AMBROSIO kneesAvailable [...] authenticated by MERY GOMEZ 2016-12-30 10:02:18KNEE 4 [id number] 10:04:[address] [id number] IMAGING REPORTPatient Name: JANIS PATTERSON Izabelate of Service: 49-67-2090Tgh: 56 Sex: F Order #: 100 Room: OPODOB: 1960 X-Ray Number: [id number] Record Number: [id number] Hospital Number: [id number] Physician: Ethan AMBROSIO Physician: Aries AMBROSIO kneesAvailable [...]
[2020-08-05] MEDS ORDERED: IPRATROPIUM BROM 0.5MG/2.5ML ONE (12:42)
[2020-08-05] MEDS ORDERED: PIPER/TAZO/NS 3.375gm 3.375 GM/100 ML BAG ONE (12:42)
[2020-08-05] MEDS ORDERED: NA CHLORIDE 0.9% 1,000 ML ONE (12:42)
[2020-08-05] MEDS ORDERED: LEVALBUTEROL 1.25 MG/3 ML NEB ONE (12:42)
[2020-08-05 12:43] LABS: Protime INR 1.03
[2020-08-05 12:45] LABS: Basophils % 0.9 % (0-1.3); Hematocrit 40.6 % (36.0-45.0); Lymphocytes % 45.6 % (15.3-44.8); MPV 8.9 fL (7.6-11.3); RBC Red Blood Cell Count 4.39 M/uL (3.86-4.86)
--- NOTE | 2020-08-05 12:49 | P.HP ---
Certification for Inpatient Patient admitted to: Inpatient With expected LOS: >2 Midnights Patient will require the following post-hospital care: [facility] Practitioner: I am a practitioner with admitting privileges, knowledge of patient current condition, hospital course, and medical plan of care. Services: Services provided to patient in accordance with Admission requirements found in Title 42 Section 412.3 of the Code of Federal Regulations Patient History Date of Service: 08/05/20 Primary Care Provider: Brayan Reason for admission: Tracheostomy care History of Present Illness: Patient is a [facility] patient. She resides in [facility]. She was transfered there during the [facility] epidempic. She has a history of CVA's diabetes and htn Is in the [facility], mostly bed bound with a trach and peg tube due to cva's. When she gets agitated she pulls on her tubes. She has been pulling on her yadav tube so we d/c that. She puled out her tracheostomy this past . The patient was sent to the ER where it was replaced by Dr Lagos. Unfortunately she pulled out her tube again. The patient was desaturating and was sent to the ER. She is awake with a replacement tube in. She is able to nod yes and no to questions. She is normally non verbal Home medications list reviewed: No - Past Medical/Surgical History Has patient received pneumonia vaccine in the past: Yes Diabetic: Yes -: htn -: DM -: CVA Review of Systems 10-point ROS is otherwise unremarkable (per yes and no questions only) Physical Examination - Physical Exam General: Alert (tracheostomy with a tube instead of cuff. The wound is jagged and early red) HEENT: Other (tube in the tracheostomy scar. She has some rough edges and drainage. ) Assessment and Plan - Problems (Diagnosis) (1) Tracheostomy complication Current Visit: Yes Status: Acute Plan: Patient is currently stable Will consult Dr. Srinivasa Coronel. Qualifiers: Tracheostomy complication: unspecified Qualified Code(s): J95.00 - Unspecified tracheostomy complication (2) CVA (cerebral vascular accident) Current Visit: Yes Status: Acute Plan: Mostly bed bound She needs fall precautions. She needs PEG and tracheostomy care. Qualifiers: CVA mechanism: unspecified Qualified Code(s): I63.9 - Cerebral infarction, unspecified (3) DM2 (diabetes mellitus, type 2) Current Visit: Yes Status: Acute Plan: Patient will be started on mild sliding scale. Will review his [facility] medications. Qualifiers: Diabetes mellitus terminal supervisor insulin use: with terminal supervisor use Diabetes mellitus complication status: with other specified complication Qualified Code(s): E11.69 - Type 2 diabetes mellitus with other specified complication; Z79.4 - long term acute care registered nurse (current) use of insulin (4) HTN (hypertension) Current Visit: Yes Status: Acute Plan: will give iv hydralazine and review home medications. Qualifiers: Hypertension type: essential hypertension Qualified Code(s): I10 - Essential (primary) hypertension (5) PEG (percutaneous endoscopic gastrostomy) status Current Visit: Yes Status: Acute Plan: will hold feeding for now as the patient may have to go to surgery soon. (6) Bedbound Current Visit: Yes Status: Acute Plan: needs fall precautions. Discharge Plan: Shelter Plan to discharge in: 48 Hours - Advance Directives Does patient have a Living Will: No Does patient have a Durable POA for Healthcare: No - Code Status/Comfort Care Code Status: Full Code Physician Review: Patient Assessed, Agree with Above Assessment and Plan Critical Care: No Time Spent Managing Pts Care (In Minutes): 75
[2020-08-05 12:59] LABS: ALT/SGPT 32 U/L (12-78); AST/SGOT 65 U/L (15-37); Albumin 2.3 g/dL (3.4-5.0); Alkaline Phosphatase 158 U/L (45-117); BUN Blood Urea Nitrogen 15 mg/dL (7-18); Bicarbonate 30 mmol/L (21-32); Bilirubin Direct 0.2 mg/dL (0-0.2); Bilirubin Total 0.5 mg/dL (0.2-1.0); Glucose Level 122 mg/dL (74-106); Magnesium 1.7 mg/dL (1.8-2.4); NT PRO-BNP 289 pg/mL (<125); Potassium 3.7 mmol/L (3.5-5.1); Protein, Total 8.4 g/dL (6.4-8.2); Sodium Level 140 mmol/L (136-145); Troponin (Emerg Dept Use Only) < 0.02 ng/mL (0.0-0.045)
[2020-08-05] MEDS ORDERED: D50W 25 GM/50 ML SYRINGE/VIAL IV PRN ×2 (13:05→19:01)
[2020-08-05] MEDS ORDERED: HYDRALAZINE HCL 20 MG/ML VIAL IV PRN (13:05)
[2020-08-05] MEDS ORDERED: GLUCAGON 1 MG/VIAL IM PRN ×2 (13:05→19:01)
--- NOTE | 2020-08-05 13:09 | RAD REPORT ---
EXAM DESCRIPTION: Pako Single View08/05/2020 12:42 pm CLINICAL HISTORY: cough COMPARISON: August 03 FINDINGS: The lungs appear clear of acute infiltrate. The heart is mildly enlarged Tracheostomy tube overlies the trachea
[2020-08-05] MEDS ORDERED: MAGNESIUM SULFATE 1 gm IVPB 1 GM/100 ML BAG IV ONE (13:31)
--- NOTE | 2020-08-05 13:35 | ER ---
Nurse's Notes [facility] Name: Marah Patterson Age: 59 yrs Sex: Female : 1960 Arrival Date: 08/05/2020 Time: 11:43 Bed 20 Private MD: Diagnosis: Dyspnea;Tachycardia, unspecified;Tracheostomy status;Tracheostomy complications-infection Presentation: 08/05 11:30 Chief complaint: EMS states: Pt. is from [facility]. I called them to [facility] verify why the pt was sent here because EMS didn't know for sure. Facility is having an issue with the pt. pulling her trach out. They are requesting that she has a trach collar put into place to keep the pt from pulling her trach out because she desats quickly when she removes the trach. BP 120's, P 110-120's, which is normal for her, they Administered a non-rebreather \T\ 15 L and O2 was 98-99%. 11:30 Coronavirus screen: Client denies travel out of the [place] in the last 14 days. Ebola rb1 Screen: Patient denies travel to an Ebola-affected area in the 21 days before illness onset. Initial Sepsis Screen: Does the patient meet any 2 criteria? No. Patient's initial sepsis screen is negative. Risk Assessment: Do you want to hurt yourself or someone else? Patient reports no desire to harm self or others. Onset of symptoms is unknown. 11:30 Method Of Arrival: EMS: [facility] rb1 11:30 Acuity: CHARLES 3 rb1 Triage Assessment: 11:30 General: Appears in no apparent distress. comfortable, Behavior is calm, cooperative, rb1 Denies fever. Pain: Denies pain. EENT: Trach in place. Neuro: Level of Consciousness is awake, alert, obeys commands, Oriented to person. Cardiovascular: Capillary refill < 3 seconds. Respiratory: Airway via trache Respiratory effort is even, Respiratory pattern is regular. GI: Gastric Tube. : No signs and/or symptoms were reported regarding the genitourinary system. Derm: Skin is dry, Skin is normal, Skin temperature is warm. Musculoskeletal: Paralysis on the left side. Historical: - Allergies: 11:30 Iodine; rb1 11:30 Levofloxacin; rb1 - Home Meds: 11:30 albuterol sulfate 2.5 mg /3 mL (0.083 %) Nebulizer nebu 3 mL 3 times per day [Active]; rb1 alprazolam 0.5 mg Oral Tb24 1 tab every 8 hours PRN [Active]; amlodipine 5 mg tab 1 tab once daily [Active]; aspirin 81 mg Oral chew 1 tab once daily [Active]; atorvastatin 80 mg oral tab 1 tab once daily [Active]; Bacid 1 billion-250 cell-mg oral tab 2 tabs daily [Active]; buspirone 5 mg Oral tab 1 tab 3 times per day [Active]; Eliquis 2.5 mg oral tab 1 tab once a day [Active]; Humalog 100 unit/mL Sub-Q soln [Active]; ipratropium bromide 0.02 % inhalation soln 1.25 mL 3 times per day [Active]; lactulose 10 gram/15 mL (15 mL) Oral soln 15 mL 3 times per day [Active]; magnesium oxide 400 mg Oral cap 2 tabs twice a day [Active]; metoprolol tartrate 25 mg Oral tab 1 tab 2 times per day [Active]; ondansetron HCl 4 mg Oral tab 1 tabs every 6 hours [Active]; pantoprazole 40 mg oral TbEC 1 tab once daily [Active]; Peridex 0.12 % mucous membrane mwsh 15 mL every 4 hours [Active]; Seroquel 50 mg Oral tab 1 tab evening [Active]; simethicone 80 mg Oral chew twice a day [Active]; Vitamin C 500 mg Oral cpER daily [Active]; cefpodoxime 50 mg/5 mL oral susr 20 mL every 12 hours [Active]; lorazepam 0.5 mg Oral tab 1 tab 2 times per day [Active]; - PMHx: 11:30 Anxiety; Chronic pain; chronic respiratory failure; CVA; Diabetes - NIDDM; 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 - Social history:: Smoking status: Patient/guardian denies using. - Family history:: not pertinent. Screenin:30 Abuse screen: Denies threats or abuse. Nutritional screening: Gastric Tube. rb1 Tuberculosis screening: No symptoms or risk factors identified. 11:50 Fall Risk No fall in past 12 months (0 pts). Secondary diagnosis (15 points) CVA, IV rb1 access (20 points). Ambulatory Aid- None/Bed Rest/Nurse Assist (0 pts). Gait- Impaired (20 pts.). Mental Status- Oriented to own ability (0 pts). Total Alexandre Fall Scale indicates High Risk Score (45 or more points). Fall prevention measures have been instituted. Side Rails Up X 2 Placed Close to Nursing Station 1:1 Attendant Assigned Frequent Obs/Assessments Occuring As available patient and family educated on Fall Prevention Program and Strategies. Assessment: 11:30 General: See triage assessment. rb1 12:30 Reassessment: Patient appears in no apparent distress at this time. No changes from rb1 previously documented assessment. 13:05 Reassessment: Patient appears in no apparent distress at this time. RT is at the pt. rb1 bedside. 15:04 Reassessment: Patient appears in no apparent distress at this time. Patient and/or rb1 family updated on plan of care and expected duration. Pain level reassessed. Patient is alert, oriented x 3, equal unlabored respirations, skin warm/dry/pink. 15:10 Reassessment: Gave report to ROLF Scott. Information from the SBAR was given. All rb1 questions asked and answered. Informed her that the Vancomycin 1 gram IVPB would need to be administered due to the Magnesium currently infusing. 15:15 Reassessment: Called registration to flip the pt. and they said they don't have rb1 admission orders yet. 15:45 Reassessment: Called registration for an update on the pt. new bracelet and labels but rb1 there still isn't admission orders in. Called Joy to see what the issue is, she will look into it. 16:00 Reassessment: Patient appears in no apparent distress at this time. Patient and/or rb1 family updated on plan of care and expected duration. Pain level reassessed. Patient is alert, oriented x 3, equal unlabored respirations, skin warm/dry/pink. Pt. was repositioned with assistance. Vital Signs: 11:30 BP 138 / 79; Pulse 112; Resp 19; Temp 97.9; Pulse Ox 98% on 15% Non-rebreather mask; rb1 12:42 BP 124 / 91; Pulse 117; Resp 18; Pulse Ox 98% ; rb1 13:40 BP 117 / 94; Resp 20; Pulse Ox 100% ; rb1 14:40 BP 126 / 93; Pulse 130; Resp 21; Pulse Ox 100% 4 lpm ; rb1 15:30 BP 130 / 65; Pulse 123; Resp 17; Pulse Ox 100% 4 lpm ; rb1 16:22 BP 146 / 97; Pulse 122; Resp 19; Pulse Ox 99% 4 lpm ; rb1 13:40 Oxygen via trach rb1 14:40 Oxygen through the trach rb1 15:30 via trach rb1 16:22 via trach rb1 ED Course: 11:30 Arm band placed on right wrist. rb1 11:30 Patient has correct armband on for positive identification. Bed in low position. Call rb1 light in reach. Side rails up X2. Pulse ox on. NIBP on. Warm blanket given. 11:43 Patient arrived in ED. naomi 11:43 Job Rose MD is Attending Physician. naomi 11:52 Shante Willis, ROLF is Primary Nurse. rb1 12:04 Triage completed. rb1 12:15 Inserted saline lock: 22 gauge in right hand, using aseptic technique. ,using aseptic rb1 technique. IV inserted by FAWN Major Blood collected. 12:42 XRAY Chest (1 view) In Process Unspecified. EDMS 13:34 Gopal Schmidt MD is Hospitalizing Provider. naomi 16:42 No provider procedures requiring assistance completed. Patient admitted, IV remains in rb1 place. Administered Medications: 12:43 Drug: Zosyn 3.375 grams Route: IVPB; Infused Over: 60 mins; Site: right hand; rb1 13:55 Follow up: Response: No adverse reaction; IV Status: Completed infusion rb1 12:43 Drug: Xopenex 1.25 mg Route: Inhalation; rb1 12:43 Drug: AtroVENT Aerosol 0.5 mg Route: Inhalation; rb1 12:48 Drug: NS 0.9% 1000 ml Route: IV; Rate: 125 ml/hr; Site: right hand; rb1 14:00 Drug: Magnesium Sulfate 1 grams Route: IVPB; Infused Over: 1 hrs; Site: right hand; rb1 15:03 Follow up: Response: No adverse reaction; IV Status: Completed infusion rb1 17:47 Not Given (Will be administered on the floor): vancoMYCIN 1 grams IVPB once over 2 hrs rb1 Outcome: 13:35 Decision to Hospitalize by Provider. naomi 16:42 Patient left the ED. iw 16:42 Admitted to Tele accompanied by tech, via stretcher, room 402, with chart, Report rb1 called to ROLF Scott 16:42 Condition: stable 16:42 Instructed on the need for admit. Signatures: Dispatcher [employer] Job Mcintyre MD MD cha Williams, Irene, RN RN iw Shante Willis RN RN rb1 Corrections: (The following items were deleted from the chart) 15:05 13:05 Reassessment: RT is at the pt. bedside. rb1 rb1 17:46 15:30 BP 130 / 65; Pulse 123bpm; Resp 17bpm; Pulse Ox 100% RA; rb1 rb1
--- NOTE | 2020-08-05 13:36 | EDPHYS ---
Physician Documentation [facility] Name: Marah Patterson Age: 59 yrs Sex: Female : 1960 Arrival Date: 08/05/2020 Time: 11:43 Bed 20 Private MD: ED Physician Job Rose HPI: 08/05 11:54 This 59 yrs old Black Female presents to ER via Unassigned with complaints of trach naomi complications and dyspnea. 11:54 The patient has shortness of breath at rest, with light activity. Onset: The naomi symptoms/episode began/occurred 3 day(s) ago. Duration: The symptoms are continuous, and are steadily getting worse. The patient's shortness of breath is aggravated by coughing, light activity, supine position. The patient or guardian reports airway noise, cough, difficulty breathing. Modifying factors: The symptoms are alleviated by nothing. the symptoms are aggravated by nothing. Severity of symptoms: At their worst the symptoms were mild moderate in the emergency department the symptoms are unchanged. Historical: - Allergies: 11:30 Iodine; rb1 11:30 Levofloxacin; rb1 - Home Meds: 11:30 albuterol sulfate 2.5 mg /3 mL (0.083 %) Nebulizer nebu 3 mL 3 times per day [Active]; rb1 alprazolam 0.5 mg Oral Tb24 1 tab every 8 hours PRN [Active]; amlodipine 5 mg tab 1 tab once daily [Active]; aspirin 81 mg Oral chew 1 tab once daily [Active]; atorvastatin 80 mg oral tab 1 tab once daily [Active]; Bacid 1 billion-250 cell-mg oral tab 2 tabs daily [Active]; buspirone 5 mg Oral tab 1 tab 3 times per day [Active]; Eliquis 2.5 mg oral tab 1 tab once a day [Active]; Humalog 100 unit/mL Sub-Q soln [Active]; ipratropium bromide 0.02 % inhalation soln 1.25 mL 3 times per day [Active]; lactulose 10 gram/15 mL (15 mL) Oral soln 15 mL 3 times per day [Active]; magnesium oxide 400 mg Oral cap 2 tabs twice a day [Active]; metoprolol tartrate 25 mg Oral tab 1 tab 2 times per day [Active]; ondansetron HCl 4 mg Oral tab 1 tabs every 6 hours [Active]; pantoprazole 40 mg oral TbEC 1 tab once daily [Active]; Peridex 0.12 % mucous membrane mwsh 15 mL every 4 hours [Active]; Seroquel 50 mg Oral tab 1 tab evening [Active]; simethicone 80 mg Oral chew twice a day [Active]; Vitamin C 500 mg Oral cpER daily [Active]; cefpodoxime 50 mg/5 mL oral susr 20 mL every 12 hours [Active]; lorazepam 0.5 mg Oral tab 1 tab 2 times per day [Active]; - PMHx: 11:30 Anxiety; Chronic pain; chronic respiratory failure; CVA; Diabetes - NIDDM; 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 - Social history:: Smoking status: Patient/guardian denies using. - Family history:: not pertinent. ROS: 11:54 Constitutional: Negative for fever, chills, and weight loss, Eyes: Negative for injury, naomi pain, redness, and discharge, ENT: Negative for injury, pain, and discharge, Neck: Negative for injury, pain, and swelling, Cardiovascular: Negative for chest pain, palpitations, and edema, Abdomen/GI: Negative for abdominal pain, nausea, vomiting, diarrhea, and constipation, Back: Negative for injury and pain, : Negative for injury, bleeding, discharge, and swelling, MS/Extremity: Negative for injury and deformity, Skin: Negative for injury, rash, and discoloration, Neuro: Negative for headache, weakness, numbness, tingling, and seizure, Psych: Negative for depression, anxiety, suicide ideation, homicidal ideation, and hallucinations, Allergy/Immunology: Negative for hives, rash, and allergies, Endocrine: Negative for neck swelling, polydipsia, polyuria, polyphagia, and marked weight changes. 11:54 Respiratory: Positive for cough, shortness of breath, at rest. Exam: 11:54 Constitutional: This is a well developed, well nourished patient who is awake, alert, naomi and in no acute distress. Head/Face: Normocephalic, atraumatic. Eyes: Pupils equal round and reactive to light, extra-ocular motions intact. Lids and lashes normal. Conjunctiva and sclera are non-icteric and not injected. Cornea within normal limits. Periorbital areas with no swelling, redness, or edema. Neck: Trachea midline, no thyromegaly or masses palpated, and no cervical lymphadenopathy. Supple, full range of motion without nuchal rigidity, or vertebral point tenderness. No Meningismus. Chest/axilla: Normal chest wall appearance and motion. Nontender with no deformity. No lesions are appreciated. Abdomen/GI: Soft, non-tender, with normal bowel sounds. No distension or tympany. No guarding or rebound. No evidence of tenderness throughout. Back: No spinal tenderness. No costovertebral tenderness. Full range of motion. Female : Normal external genitalia. Skin: Warm, dry with normal turgor. Normal color with no rashes, no lesions, and no evidence of cellulitis. MS/ Extremity: Pulses equal, no cyanosis. Neurovascular intact. Full, normal range of motion. Neuro: Awake and alert, GCS 15, oriented to person, place, time, and situation. Cranial nerves II-XII grossly intact. Motor strength 5/5 in all extremities. Sensory grossly intact. Cerebellar exam normal. Normal gait. Psych: Awake, alert, with orientation to person, place and time. Behavior, mood, and affect are within normal limits. 11:54 ENT: Posterior pharynx: swelling, that is mild. 11:54 Neck: Trachea: is midline with no obvious abnormalities, purulent dc, secreations. 11:54 Cardiovascular: Rate: tachycardic, Rhythm: regular, Pulses: Pulses are 4+ in bilateral radial, brachial, femoral, popliteal, posterior tibial and and dorsalis pedis arteries.. Heart sounds: normal, JVD: is not appreciated. 11:54 Respiratory: mild respiratory distress is noted, Respirations: labored breathing, that is mild, Breath sounds: decreased breath sounds, that are mild, Respiratory rate: 24 13:31 ECG was reviewed by the Attending Physician. naomi Vital Signs: 11:30 BP 138 / 79; Pulse 112; Resp 19; Temp 97.9; Pulse Ox 98% on 15% Non-rebreather mask; rb1 12:42 BP 124 / 91; Pulse 117; Resp 18; Pulse Ox 98% ; rb1 13:40 BP 117 / 94; Resp 20; Pulse Ox 100% ; rb1 14:40 BP 126 / 93; Pulse 130; Resp 21; Pulse Ox 100% 4 lpm ; rb1 15:30 BP 130 / 65; Pulse 123; Resp 17; Pulse Ox 100% 4 lpm ; rb1 16:22 BP 146 / 97; Pulse 122; Resp 19; Pulse Ox 99% 4 lpm ; rb1 13:40 Oxygen via trach rb1 14:40 Oxygen through the trach rb1 15:30 via trach rb1 16:22 via trach rb1 MDM: 11:43 Patient medically screened. [facility] 11:59 Differential diagnosis: CHF exacerbation, tracheal injury, bronchitis, URI. Antibiotic naomi administration: zosyn. The patient's Wells Deep Vein Thrombosis Score was calculated as follows: Total Score: 0-2 Pts- Low Risk. Differential Diagnosis: Obstructed Airway Bronchitis Sinusitis Pneumonia. The patient's pulmonary embolism risk score was calculated as follows: Total Score: 0-2 points. This patient was found to be at low risk for a pulmonary embolism by using the Well's assessment criteria. Immunization status: Influenza vaccine: Data reviewed: vital signs, nurses notes, lab test result(s), EKG, radiologic studies, plain films. Data interpreted: asp developer: rate is 100 beats/min, rhythm is. Test interpretation: by ED physician or midlevel provider: ECG, plain radiologic studies. Counseling: I had a detailed discussion with the patient and/or guardian regarding: the historical points, exam findings, and any diagnostic results supporting the discharge/admit diagnosis, lab results, radiology results. 08/05 11:53 Order name: Basic Metabolic Panel; Complete Time: 13:02 [facility] 08/05 11:53 Order name: CBC with Diff; Complete Time: 13:02 [facility] 08/05 11:53 Order name: LFT's; Complete Time: 13:02 [facility] 08/05 11:53 Order name: Magnesium; Complete Time: 13:02 [facility] 08/05 11:53 Order name: NT PRO-BNP; Complete Time: 13:02 [facility] 08/05 11:53 Order name: PT-INR; Complete Time: 13:02 [facility] 08/05 11:53 Order name: Troponin (emerg Dept Use Only); Complete Time: 13:02 [facility] 08/05 11:53 Order name: XRAY Chest (1 view); Complete Time: 13:33 [facility] 08/05 11:53 Order name: Sputum Culture [facility] 08/05 11:53 Order name: EKG; Complete Time: 11:54 [facility] 08/05 11:53 Order name: Cardiac monitoring; Complete Time: 12:36 [facility] 08/05 11:53 Order name: EKG - Nurse/Tech; Complete Time: 12:49 [facility] 08/05 11:53 Order name: IV Saline Lock; Complete Time: 12:26 [facility] 08/05 11:53 Order name: Labs collected and sent; Complete Time: 12:26 [facility] 08/05 11:53 Order name: O2 Per Protocol; Complete Time: 12:26 [facility] 08/05 11:53 Order name: O2 Sat Monitoring; Complete Time: 12:26 [facility] 08/05 13:04 Order name: Social Service Consult EDMS 08/05 13:15 Order name: CONS Physician Consult EDMS EC:31 Rate is 111 beats/min. Rhythm is regular. QRS [place] is Normal. [place] interval is normal. [facility] QRS interval is normal. QT interval is normal. No Q waves. T waves are Normal. Clinical impression: NSR w/ Non-specific ST/T Changes and No evidence of ischemia. Interpreted by me. Reviewed by me. Administered Medications: 12:43 Drug: Zosyn 3.375 grams Route: IVPB; Infused Over: 60 mins; Site: right hand; rb1 13:55 Follow up: Response: No adverse reaction; IV Status: Completed infusion rb1 12:43 Drug: Xopenex 1.25 mg Route: Inhalation; rb1 12:43 Drug: AtroVENT Aerosol 0.5 mg Route: Inhalation; rb1 12:48 Drug: NS 0.9% 1000 ml Route: IV; Rate: 125 ml/hr; Site: right hand; rb1 14:00 Drug: Magnesium Sulfate 1 grams Route: IVPB; Infused Over: 1 hrs; Site: right hand; rb1 15:03 Follow up: Response: No adverse reaction; IV Status: Completed infusion rb1 17:47 Not Given (Will be administered on the floor): vancoMYCIN 1 grams IVPB once over 2 hrs rb1 Disposition: 08/05/20 13:35 Hospitalization ordered by Gopal Schmidt for Inpatient Admission. Preliminary diagnosis are Dyspnea, Tachycardia, unspecified, Tracheostomy status, Tracheostomy complications - infection. - Bed requested for Telemetry/MedSurg (Inpatient). - Status is Inpatient Admission. iw - Condition is Fair. - Problem is new. - Symptoms have improved. Signatures: Dispatcher [employer] EDUT Job Rose MD MD cha Williams, Irene, RN RN Shante Willis, Joy Shukla RN Corrections: (The following items were deleted from the chart) 14:29 13:35 Hospitalization Ordered by Gopal Schmidt MD for Inpatient Admission. Preliminary eb diagnosis is Dyspnea; Tachycardia, unspecified; Tracheostomy status; Tracheostomy complications - infection. Bed requested for Telemetry/MedSurg (Inpatient). Status is Inpatient Admission. Condition is Fair. Problem is new. Symptoms have improved. [facility] 16:42 14:29 08/05/2020 13:35 Hospitalization Ordered by Gopal Schmidt MD for Inpatient iw Admission. Preliminary diagnosis is Dyspnea; Tachycardia, unspecified; Tracheostomy status; Tracheostomy complications - infection. Bed requested for Telemetry/MedSurg (Inpatient). Status is Inpatient Admission. Condition is Fair. Problem is new. Symptoms have improved. eb
[2020-08-05] MEDS ORDERED: INSULIN -REGULAR HUMAN 50 UNIT/0.5 ML ML SQ SCH (16:30)
[2020-08-05] MEDS ORDERED: PIPER/TAZO/NS 3.375gm 6.750 GM/200 ML BAG ONE (18:57)
--- NOTE | 2020-08-05 19:05 | P.CNS ---
Date of Consult: 08/05/20 Reason for Consult: trach displacement Primary Care Provider: Brayan Chief Complaint: Tracheostomy care History of Present Illness: Patient with hx fo trach at [facility] on 04/19/[address] Orozco attending. Hx stroke resulting in need for trach. Living in [facility]. She was in the ER 2 days with displaced trach treated by Dr Lagos. She was brought back for repeat of same problem. I spoke with the nurse at 2100 who stated the trach is in place and the patient is doing well from respiratory standpoint. Records reviewed - indication for hospitalization is unclear at this time. Discussed need for snug trach ties. Will assess in person in the morning. Allergies iodine Allergy (Unknown, Verified 08/05/20 18:06) Itching/Hives/Rash levofloxacin Allergy (Unknown, Verified 08/05/20 18:06) Itching/Hives/Rash - Past Medical/Surgical History Diabetic: Yes -: htn -: DM -: CVA -: anxiety -: chronic respiratory failure -: GERD -: trachesotomy -: henrique knee replacement -: appy -: tubaligation - Family History Mother Medical History: Heart disease, Hypertension, Diabetes, Stroke Father Medical History: Cancer - Social History Smoking Status: Unknown if ever smoked Alcohol use: No CD- Drugs: No Caffeine use: No Place of Residence: [facility] Physical Examination Temp Pulse Resp BP Pulse Ox 130 H 21 H 126/93 H 08/05/20 14:40 08/05/20 14:40 08/05/20 14:40 Laboratory Data (last 24 hrs) 08/05/20 12:21: PT 12.1, INR 1.03 08/05/20 12:21: WBC 8.8, Hgb 13.2, Hct 40.6, Plt Count 606 H 08/05/20 12:21: Sodium 140, Potassium 3.7, BUN 15, Creatinine 0.75, Glucose 122 H, Magnesium 1.7 L, Total Bilirubin 0.5, AST 65 H, ALT 32, Alkaline Phosphatase 158 H
[2020-08-05] MEDS: PIPER/TAZO/NS 3.375gm 3.375 GM/100 ML BAG IVPB SCH (19:20)
[2020-08-05] MEDS: METOPROLOL TAR 25 MG TAB FT SCH (22:00)
[2020-08-06] MEDS: PIPER/TAZO/NS 3.375gm 3.375 GM/100 ML BAG IVPB SCH ×3 (02:21→16:53)
[2020-08-06] MEDS: METOPROLOL TAR 25 MG TAB FT SCH ×2 (05:45→17:02)
[2020-08-06] MEDS: INSULIN -REGULAR HUMAN 50 UNIT/0.5 ML ML SQ SCH ×4 (05:54→17:10)
--- NOTE | 2020-08-06 08:23 | P.PN ---
Subjective Date of Service: 08/06/20 Primary Care Provider: Brayan Chief Complaint: Tracheostomy care Subjective: No new changes Review of Systems is unable to be obtained (Patient sleeping and non verbal) Physical Examination - Vital Signs Temperature: 98.4 F Blood Pressure: 117/59 Pulse: 103 Respirations: 16 Pulse Ox (%): 100 - Physical Exam General: Alert, In no apparent distress HEENT: Atraumatic, PERRLA, EOMI Neck: Supple, JVD not distended Respiratory: Clear to auscultation bilaterally, Normal air movement Cardiovascular: Regular rate/rhythm, Normal S1 S2 Gastrointestinal: Normal bowel sounds, No tenderness Musculoskeletal: No tenderness Integumentary: No rashes Neurological: Normal speech, Normal tone, Normal affect Lymphatics: No axilla or inguinal lymphadenopathy - Studies Laboratory Data (last 24 hrs) 08/05/20 12:21: PT 12.1, INR 1.03 08/05/20 12:21: WBC 8.8, Hgb 13.2, Hct 40.6, Plt Count 606 H 08/05/20 12:21: Sodium 140, Potassium 3.7, BUN 15, Creatinine 0.75, Glucose 122 H, Magnesium 1.7 L, Total Bilirubin 0.5, AST 65 H, ALT 32, Alkaline Phosphatase 158 H Assessment & Plan - Problems (Diagnosis) (1) Tracheostomy complication Current Visit: Yes Status: Acute Plan: Patient is currently stable Will consult Dr. Srinivasa Coronel. Awaiting Dr. Coronel's input Qualifiers: Tracheostomy complication: unspecified Qualified Code(s): J95.00 - Unspecified tracheostomy complication (2) CVA (cerebral vascular accident) Current Visit: Yes Status: Acute Plan: Mostly bed bound She needs fall precautions. She needs PEG and tracheostomy care. Qualifiers: CVA mechanism: unspecified Qualified Code(s): I63.9 - Cerebral infarction, unspecified (3) DM2 (diabetes mellitus, type 2) Current Visit: Yes Status: Acute Plan: Patient will be started on mild sliding scale. Will review his residential medications. Qualifiers: Diabetes mellitus detention insulin use: with detention use Diabetes mellitus complication status: with other specified complication Qualified Code(s): E11.69 - Type 2 diabetes mellitus with other specified complication; Z79.4 - senior living (current) use of insulin (4) HTN (hypertension) Current Visit: Yes Status: Acute Plan: will give iv hydralazine and review home medications. Qualifiers: Hypertension type: essential hypertension Qualified Code(s): I10 - Essential (primary) hypertension (5) PEG (percutaneous endoscopic gastrostomy) status Current Visit: Yes Status: Acute Plan: will hold feeding for now as the patient may have to go to surgery soon. (6) Bedbound Current Visit: Yes Status: Acute Plan: needs fall precautions. Discharge Plan: Care Home Plan to discharge in: 24 Hours - Code Status/Comfort Care Code Status Assessed: No Code Status: Full Code Physician Review: Patient Assessed, Agree with Above Assessment and Plan Critical Care: No Time Spent Managing Pts Care (In Minutes): 20
[2020-08-06] MEDS ORDERED: ACIDOPH FT SCH (09:00)
[2020-08-06] MEDS ORDERED: B BIF FT SCH (09:00)
[2020-08-06] MEDS ORDERED: BULG FT SCH (09:00)
[2020-08-06] MEDS ORDERED: ASCORBIC ACID 500 MG TABLET PO SCH (09:00)
[2020-08-06] MEDS ORDERED: S THERM FT SCH (09:00)
[2020-08-06] MEDS ORDERED: IPRATROPIUM BROM 0.5MG/2.5ML IH SCH ×2 (09:00→16:00)
[2020-08-06] MEDS ORDERED: METOPROLOL TAR 25 MG TAB FT SCH ×2 (09:00→21:18)
[2020-08-06] MEDS ORDERED: ACETAMINOPHEN 160 MG/5 ML UCUP FT PRN (09:38)
[2020-08-06] MEDS: ALBUTEROL 2.5 MG/3 ML NEB SOL IH SCH ×2 (09:45→15:12)
[2020-08-06] MEDS: ASPIRIN 81 MG CHEWABLE TABLET FT SCH (10:14)
[2020-08-06] MEDS: BUSPIRONE HCL 5 MG TABLET FT SCH ×3 (10:14→21:09)
[2020-08-06] MEDS: APIXABAN 2.5 MG TABLET FT SCH (10:14)
[2020-08-06] MEDS: AMLODIPINE 5 MG TAB FT SCH (10:15)
[2020-08-06] MEDS: MAGNESIUM OXIDE 400 MG TAB FT SCH ×2 (10:15→21:00)
[2020-08-06] MEDS ORDERED: LACTULOSE 20 GM/30 ML UCUP FT PRN (12:41)
[2020-08-06] MEDS: IPRATROPIUM BROM 0.5MG/2.5ML IH SCH (15:12)
[2020-08-06] MEDS ORDERED: PNEUMOCOCCAL VACCINE 0.5 ML IMVAC ONE (16:00)
[2020-08-06 17:14] VITALS: BMI 38.5
[2020-08-06] MEDS: ATORVASTATIN 80 MG TAB FT SCH (21:09)
[2020-08-06] MEDS: QUETIAPINE 25 MG TAB FT SCH (21:09)
[2020-08-06] MEDS: ALPRAZOLAM 0.5 MG TABLET FT PRN (21:09)
[2020-08-07] MEDS: IPRATROPIUM BROM 0.5MG/2.5ML IH SCH ×3 (00:25→15:50)
[2020-08-07] MEDS: ALBUTEROL 2.5 MG/3 ML NEB SOL IH SCH ×3 (00:25→15:50)
[2020-08-07] MEDS: PIPER/TAZO/NS 3.375gm 3.375 GM/100 ML BAG IVPB SCH ×2 (01:52→09:20)
[2020-08-07] MEDS: METOPROLOL TAR 25 MG TAB FT SCH ×2 (05:28→18:33)
[2020-08-07] MEDS: INSULIN -REGULAR HUMAN 50 UNIT/0.5 ML ML SQ SCH ×4 (05:39→18:00)
--- NOTE | 2020-08-07 08:20 | P.PN ---
Subjective Date of Service: 08/07/20 Primary Care Provider: Brayan Chief Complaint: Tracheostomy care Subjective: Improving (Patient has clear discharge) Review of Systems 10-point ROS is otherwise unremarkable Physical Examination - Vital Signs Temperature: 97.8 F Blood Pressure: 112/64 Pulse: 101 Respirations: 16 Pulse Ox (%): 100 - Physical Exam General: Alert, In no apparent distress HEENT: PERRLA, Other (trach tube in place), EOMI Neck: Supple, JVD not distended Respiratory: Clear to auscultation bilaterally, Normal air movement Cardiovascular: Regular rate/rhythm, Normal S1 S2 Gastrointestinal: Normal bowel sounds, No tenderness Musculoskeletal: No tenderness Integumentary: No rashes Neurological: Normal speech, Normal tone, Normal affect Lymphatics: No axilla or inguinal lymphadenopathy - Studies Microbiology Data (last 24 hrs): 08/05/20 13:12 Sputum Sputum Gram Stain - Final 08/05/20 13:12 Sputum Culture & Sensitivity - Final Morganella Morganii Assessment And Plan - Current Problems (Diagnosis) (1) Tracheostomy complication Current Visit: Yes Status: Acute Plan: Patient is currently stable Will consult Dr. Srinivasa Coronel. Awaiting Dr. Coronel's input Qualifiers: Tracheostomy complication: unspecified Qualified Code(s): J95.00 - Unspecified tracheostomy complication (2) CVA (cerebral vascular accident) Current Visit: Yes Status: Acute Plan: Mostly bed bound She needs fall precautions. She needs PEG and tracheostomy car e. Qualifiers: CVA mechanism: unspecified Qualified Code(s): I63.9 - Cerebral infarction, unspecified (3) DM2 (diabetes mellitus, type 2) Current Visit: Yes Status: Acute Plan: Patient will be started on mild sliding scale. Will review his half-way medications. Qualifiers: Diabetes mellitus long-term insulin use: with long-term use Diabetes mellitus complication status: with other specified complication Qualified Code(s): E11.69 - Type 2 diabetes mellitus with other specified complication; Z79.4 - buttermaker continuous churn (current) use of insulin (4) HTN (hypertension) Current Visit: Yes Status: Acute Plan: will give iv hydralazine and review home medications. Qualifiers: Hypertension type: essential hypertension Qualified Code(s): I10 - Essential (primary) hypertension (5) PEG (percutaneous endoscopic gastrostomy) status Current Visit: Yes Status: Acute Plan: will hold feeding for now as the patient may have to go to surgery soon. (6) Bedbound Current Visit: Yes Status: Acute Plan: needs fall precautions. Discharge Plan: Home Plan to discharge in: 24 Hours - Code Status/Comfort Care Code Status Assessed: No Physician Review: Patient Assessed, Agree with Above Assessment and Plan Critical Care: No Time Spent Managing PTS Care (In Minutes): 20
[2020-08-07 08:48] LABS: Absolute Lymphocytes (CBC) 3.8 K/uL (0.7-4.9); Basophils % 0.7 % (0-1.3); Hematocrit 36.2 % (36.0-45.0); MPV 8.3 fL (7.6-11.3); RBC Red Blood Cell Count 3.96 M/uL (3.86-4.86)
[2020-08-07 08:51] LABS: Protime INR 1.14
[2020-08-07] MEDS: MAGNESIUM OXIDE 400 MG TAB FT SCH ×2 (09:00→20:43)
[2020-08-07 09:06] LABS: BUN Blood Urea Nitrogen 12 mg/dL (7-18); Bicarbonate 30 mmol/L (21-32); Glucose Level 102 mg/dL (74-106); Potassium 3.5 mmol/L (3.5-5.1); Sodium Level 141 mmol/L (136-145)
[2020-08-07] MEDS: ASCORBIC ACID 500 MG TABLET FT SCH (09:26)
[2020-08-07] MEDS: ASPIRIN 81 MG CHEWABLE TABLET FT SCH (09:26)
[2020-08-07] MEDS: LACTOBACILLUS/ACIDOPHILUS TAB FT SCH (09:26)
[2020-08-07] MEDS: BUSPIRONE HCL 5 MG TABLET FT SCH ×3 (09:26→20:42)
[2020-08-07] MEDS: APIXABAN 2.5 MG TABLET FT SCH (09:26)
[2020-08-07] MEDS: AMLODIPINE 5 MG TAB FT SCH (09:26)
[2020-08-07 09:30] LABS: Blood Morphology Comment NOT SEEN (NOT SEEN); Platelet Estimate INCR
[2020-08-07] MEDS ORDERED: GLUCERNA 1.2 CAL 1,000 ML BOT RTH SCH (15:00)
[2020-08-07] MEDS ORDERED: CEFTRIAXONE/SWI 1gm 1 GM/10 ML SYR IV SCH (17:00)
[2020-08-07] MEDS: ALPRAZOLAM 0.5 MG TABLET FT PRN (20:42)
[2020-08-07] MEDS: QUETIAPINE 25 MG TAB FT SCH (20:42)
[2020-08-07] MEDS: ATORVASTATIN 80 MG TAB FT SCH (20:42)
[2020-08-08] MEDS: INSULIN -REGULAR HUMAN 50 UNIT/0.5 ML ML SQ SCH ×3 (06:00→12:00)
[2020-08-08] MEDS: METOPROLOL TAR 25 MG TAB FT SCH (06:30)
--- NOTE | 2020-08-08 07:55 | CON ---
Date of Consultation: 08/07/2020 Reason For Consultation: Tracheostomy questions, "is there are tracheostomy tube that will be more s ecure?" History Of Present Illness: Ms. Patterson was admitted to the hospital on Friday, August 05, wi th tracheostomy tube complications. The majority of information is gathered from the medical record as the patient has limited ability to communicate. The patient suffered a stroke in April 2020 and un derwent a tracheostomy tube at [facility] with Dr. Adria Orozco. Operative note indicates a Noe flap was performed in conjunction with this procedure. The patient more recently has been living in a local [facility] in [place]. She dislodged her tracheostomy tube on , August 03, and wa s brought to the emergency room since the [facility] was unable to replace it. The tube was correc tly repositioned by Dr. Lagos in the emergency room and the patient was returned to her long-term care facility. On Friday, she again pulled the tube out and was brought to the hospital for evaluation. I spoke with the nursing staff, who indicated that the tube had been replaced and that the patient was not in any respiratory distress and no acute intervention from an ENT standpoint was required. I spoke with the patient's nurse regarding degree of concerns. She indicated to the patient that ther e was concern the patient may have damaged the tracheostomy track with traumatic removal of the tube and there had been some mildly bloody secretions noted by the respiratory therapist during tracheosto my care. There is no available information regarding the size or type of tracheostomy tube that was initially present at the beginning of the week. The patient is noted to communicate with nods, but d oes not make any verbalizations during my evaluation. The patient is also noted to write short notes to the nursing staff, but this is not attempted during the time of my evaluation. No family is pres ent to provide additional details regarding her past medical history or other pertinent information. Physical Examination: The patient is awake and alert. She responds to questions by nodding yes and no. Her face is symmet joycelyn. Her external ears, nose, and lips are unremarkable. After repositioning to a flat position wit h the neck slightly extended, the tracheostomy site is evaluated. She has in place a 4 cuffless Shil ey tracheostomy tube. The tube is completely removed in order to evaluate the tracheostomy site. Sh e has a small amount of granulation tissue at the left lateral edge of the site without significant b leeding or friability. There is minimal crusting around the tube. After cleaning the skin, the trac heostomy tube is replaced with ease through the opening and secured with Velcro ties. Assessment: Stable tracheostomy site and findings consistent with duration of tracheostomy, approxim ately 3 months. Plan: At this time, there is no need for acute intervention. The patient appears stable from a resp iratory standpoint. A 4 cuffless tracheostomy is an appropriate tube for her current clinical situat ion. Consideration may be made within the [facility] for speech therapy evaluation including use o f a [place] valve to aid in vocal communication and swallowing assessments. The patient appears t o tolerate her secretions well. The rehab potential is unclear to me at this point. With no family members available, I did not discuss considerations for decannulation at this time. In general, if t he tracheostomy tube is deemed no longer necessary, I typically recommend a period of capping the tra ch with the red inner cannula cap with very careful monitoring in regard to her respiratory status in cluding oxygenation. I am not sure about the level of supervision or comfort level with the sort of monitoring within her care facility. In addition, due to the external granulation, I would recommend an elective direct laryngoscopy with tracheoscopy and bronchoscopy with removal of any suprastomal g ranulation tissue immediately prior to or at the time of decannulation to reduce the likelihood of rand bglottic stenosis. As the patient progresses in her rehab, this can be discussed with the patient an d her family members on an outpatient basis. ALYSE/ELA Voice ID: [id number] Report ID: [id number]
[2020-08-08] MEDS: ALBUTEROL 2.5 MG/3 ML NEB SOL IH SCH ×2 (08:23)
[2020-08-08] MEDS: IPRATROPIUM BROM 0.5MG/2.5ML IH SCH ×2 (08:23)
--- NOTE | 2020-08-08 08:24 | P.DS ---
Admission Date: 08/05/20 Discharge Date: 08/08/20 Primary Care Provider: Brayan Disposition: TRANSFER TO [facility] Discharge Condition: GOOD Reason for Admission: Tracheostomy care - Problems (1) Tracheostomy complication Current Visit: Yes Status: Acute Qualifiers: Tracheostomy complication: unspecified Qualified Code(s): J95.00 - Unspecified tracheostomy complication (2) CVA (cerebral vascular accident) Current Visit: Yes Status: Acute Qualifiers: CVA mechanism: unspecified Qualified Code(s): I63.9 - Cerebral infarction, unspecified (3) DM2 (diabetes mellitus, type 2) Current Visit: Yes Status: Acute Qualifiers: Diabetes mellitus emt intermediate insulin use: with emt intermediate use Diabetes mellitus complication status: with other specified complication Qualified Code(s): E11.69 - Type 2 diabetes mellitus with other specified complication; Z79.4 - snf (current) use of insulin (4) HTN (hypertension) Current Visit: Yes Status: Acute Qualifiers: Hypertension type: essential hypertension Qualified Code(s): I10 - Essential (primary) hypertension (5) PEG (percutaneous endoscopic gastrostomy) status Current Visit: Yes Status: Acute (6) Bedbound Current Visit: Yes Status: Acute Brief History of Present Illness: Patient is a care home patient. She resides in [facility]. She was transfered there during the [facility] epidempic. She has a history of CVA's diabetes and htn Is in the care home, mostly bed bound with a trach and peg tube due to cva's. When she gets agitated she pulls on her tubes. She has been pulling on her yadav tube so we d/c that. She puled out her tracheostomy this past . The patient was sent to the ER where it was replaced by Dr Lagos. Unfortunately she pulled out her tube again. The patient was desaturating and was sent to the ER. She is awake with a replacement tube in. She is able to nod yes and no to questions. She is normally non verbal Hospital Course: Patient was admitted for pulling out the PEG tube. The patient was seen by Dr. Coronel. No need for changing the trache. She seems to pull at her tubes in her sleep. Unfortunately benzodiazepams at bedtime seem to prevent this. Will work to keep her at the lowest qhs dosage. She tested positive for moxilla in her sputum. She was started on zosyn in the ER. She was not acutely ill. This may be a colonized bacteria. The patient can be switched to Gentamycin. Her most recent creatine was 0.69. She should have a creatine rechecked next week. Will give her 2 more days of gentamycin. For a total of 5 days of antibiotics. Vital Signs/Physical Exam: Temp Pulse Resp BP Pulse Ox 97.5 F 102 H 16 130/72 99 08/08/20 04:00 08/08/20 06:30 08/08/20 04:00 08/08/20 06:30 08/08/20 04:00 Laboratory Data at Discharge: WBC 8.5 K/uL (4.3-10.9) 08/07/20 08:34 Hgb 11.8 g/dL (12.0-15.0) L 08/07/20 08:34 Hct 36.2 % (36.0-45.0) 08/07/20 08:34 Plt Count 535 K/uL (152-406) H 08/07/20 08:34 PT 13.4 SECONDS (9.5-12.5) H 08/07/20 08:34 INR 1.14 08/07/20 08:34 APTT Cancelled 08/07/20 Unknown Sodium 141 mmol/L (136-145) 08/07/20 08:34 Potassium 3.5 mmol/L (3.5-5.1) 08/07/20 08:34 BUN 12 mg/dL (7-18) 08/07/20 08:34 Creatinine 0.69 mg/dL (0.55-1.3) 08/07/20 08:34 Glucose 102 mg/dL (74-106) 08/07/20 08:34 Magnesium 1.7 mg/dL (1.8-2.4) L 08/05/20 12:21 Total Bilirubin 0.5 mg/dL (0.2-1.0) 08/05/20 12:21 AST 65 U/L (15-37) H 08/05/20 12:21 ALT 32 U/L (12-78) 08/05/20 12:21 Alkaline Phosphatase 158 U/L (45-117) H 08/05/20 12:21 Home Medications: ALPRAZolam [Alprazolam] 0.5 mg FT Q8HP 08/06/20 Acetaminophen 160 mg FT DAILYPRN PRN 08/06/20 Albuterol Sulfate [Albuterol Sulfate 0.083% Neb Soln] 2.5 mg IH Q8H 08/06/20 Amlodipine [Norvasc] 5 mg FT DAILY 08/06/20 Apixaban [Eliquis] 2.5 mg FT DAILY 08/06/20 Ascorbic Acid [Vitamin C] 500 mg PO DAILY 08/06/20 Aspirin 81 mg FT DAILY 08/06/20 Atorvastatin Calcium [Lipitor] 80 mg FT BEDTIME 08/06/20 Buspirone HCl [Buspar] 5 mg FT TID 08/06/20 Chlorhexidine Gluconate [Peridex] 15 ml MM Q4H 08/06/20 Insulin Lispro [Humalog] 0 unit SQ ACHS 08/06/20 Ipratropium [place] 0.2 mg IH Q8H 08/06/20 L.acidoph/L.bulg/B.bif/S.therm [Bacid Caplet] 1 tab FT DAILY 08/06/20 Lactulose 10 gm PO TIDP PRN 08/06/20 Magnesium Oxide [Mag 0X Tab] 400 mg FT BID 08/06/20 Metoprolol Tartrate [Lopressor] 25 mg FT Q12H 08/06/20 Ondansetron [Zofran] 4 mg FT Q6H PRN 08/06/20 Pantoprazole [Protonix Tab] 40 mg FT DAILY 08/06/20 Quetiapine [Seroquel] 50 mg FT BEDTIME 08/06/20 Simethicone 80 mg PO BID 08/06/20 Gentamicin Inj [Garamycin Inj*] 55 mg IM Q8HR 2 Days #8 vial 08/08/20 New Medications: Gentamicin Inj [Garamycin Inj*] 55 mg IM Q8HR 2 Days #8 vial Diet: Peg feeding as before Activity: Fall precautions
[2020-08-08 09:09] LABS: Absolute Lymphocytes (CBC) 4.1 K/uL (0.7-4.9); Basophils % 0.7 % (0-1.3); Lymphocytes % 42.5 % (15.3-44.8); RBC Red Blood Cell Count 4.17 M/uL (3.86-4.86)
[2020-08-08 09:13] LABS: BUN Blood Urea Nitrogen 10 mg/dL (7-18); Bicarbonate 28 mmol/L (21-32); Glucose Level 103 mg/dL (74-106); Potassium 4.3 mmol/L (3.5-5.1); Sodium Level 142 mmol/L (136-145)
[2020-08-08 09:16] VITALS: O2SAT 98
[2020-08-08] MEDS: MAGNESIUM OXIDE 400 MG TAB FT SCH (09:41)
[2020-08-08] MEDS: LACTOBACILLUS/ACIDOPHILUS TAB FT SCH (09:42)
[2020-08-08] MEDS: ASPIRIN 81 MG CHEWABLE TABLET FT SCH (09:42)
[2020-08-08] MEDS: APIXABAN 2.5 MG TABLET FT SCH (09:42)
[2020-08-08] MEDS: ASCORBIC ACID 500 MG TABLET FT SCH (09:42)
[2020-08-08] MEDS: AMLODIPINE 5 MG TAB FT SCH (09:42)
[2020-08-08] MEDS: BUSPIRONE HCL 5 MG TABLET FT SCH ×2 (09:42→14:30)
[2020-08-08 16:10] VITALS: BP 131/78; TEMP 97.5
== END 2020-08-08 16:26 | DRG 206 ==
LOC: ER 11:40 → 4TH 16:01
PROVIDERS: ADMIT Internal Medicine; ATTEND Internal Medicine
DX: J95.00 Unspecified tracheostomy complication (principal); I10 Essential (primary) hypertension; K21.9 Gastro-esophageal reflux disease without esophagitis; E11.69 Type 2 diabetes mellitus with other specified complication; B96.89 Other specified bacterial agents as the cause of diseases classified elsewhere; Z79.4 Long term (current) use of insulin; Z93.1 Gastrostomy status; Z74.01 Bed confinement status; Z88.1 Allergy status to other antibiotic agents; Z88.8 Allergy status to other drugs, medicaments and biological substances; Z86.73 Personal history of transient ischemic attack (TIA), and cerebral infarction without residual deficits; Z96.653 Presence of artificial knee joint, bilateral; Z98.51 Tubal ligation status; Z20.828 Contact with and (suspected) exposure to other viral communicable diseases
CPT/HCPCS: 36415; 71045; 80048; 80076; 82947; 83735; 83880; 84484; 85025; 85610; 85730; 87070; 87077; 87186; 87205; 93005; 94640; 96365; 96367; 99285; J0696; J2543; J3475; J7030; U0002; U0003

== ENCOUNTER 2020-10-09 11:11 | Emergency (ER) | payer OTHER ==
--- OUTSIDE RECORDS SUMMARY | 2020-10-09 11:23 | XMS REPORT | Continuity of Care Document ---
:1960 Author Organization [facility] t Address [address] [place] [address] Care Team Providers Name Role Phone DAILY [...] Type Date Date Clinician iodine DA Active [place] 2020-0 [facility] 8-17 [place] 00:00: [facility] 00 [facility] [place] levoflox DA Active [place] 2019-0 [facility] 8-17 [place] 00:[facility]: [facility] 00 are [place] No Known DA Active U 0 [facility] Allergie 7-19 [place] s 00:00: [facility] 00 are [place] Medications This patient has no known medications. Procedures This patient has no known procedures. Encounters Start End Encounter Admission Attending Care Care Encounter Source Date/Time Date/Time Type Type Clinicians Facility Department ID 2020-04-13 2020-04-[address] [facility] [id number] 00:00:00 00:00:00 Management [facility] [id number] CLINICS [id number] 2017-09-10 2017-09-10 Outpatient 3 ELYSIA BARRERA [id number] [facility] 10:49:00 10:49:00 [facility] Grahammo nt) 2017-05-28 2017-05-28 Emergency E [facility] [id number] Medical 04:36:00 04:36:00 [facility] 2017-05-21 2017-05-21 Inpatient E [facility] [id number] Medical 02:34:00 02:34:00 [facility] Results Test Description Test Time Test Comments Results Result Comments Source GLUBED 2020-07-10 11:55:00 Test Item Value Reference Range Interpretation Comme nts GLUBED (test code = GLUBED) 126 mg/dL 65-99 H BASIC METABOLIC [id number] 10:08:00 Test Item Value Reference Range Interpretation [...] code 9.4 mg/dL 8.5-10.1 N = CA) [id number] 10:08:00 Test Item Value Reference Range Interpretation Comments MAGNESIUM (test code = MAG) 1.8 mg/dL 1.8-2.4 N CBC W/AUTO [id number] 09:46:00 Test Item Value Reference Range Interpretation [...] = BA#) 0.09 10 3/uL 0.0-0.1 N [id number] 06:11:00 Test Item Value Reference Range Interpretation Comments GLUBED (test code = GLUBED) 127 mg/dL 65-99 H [id number] 01:06:00 Test Item Value Reference Range Interpretation Comments GLUBED (test code = GLUBED) 131 mg/dL 65-99 H [id number] 16:55:00 Test Item Value Reference Range Interpretation Comments GLUBED (test code = GLUBED) 118 mg/dL 65-99 H [id number] 11:34:00 Test Item Value Reference Range Interpretation Comments GLUBED (test code = GLUBED) 123 mg/dL 65-99 H [id number] 06:21:00 Test Item Value Reference Range Interpretation Comments GLUBED (test code = GLUBED) 115 mg/dL 65-99 H BASIC METABOLIC [id number] 04:53:00 Test Item Value Reference Range Interpretation [...] code 9.5 mg/dL 8.5-10.1 N = CA) [id number] 04:53:00 Test Item Value Reference Range Interpretation Comments MAGNESIUM (test code = MAG) 1.7 mg/dL 1.8-2.4 L [id number] 04:53:00 Test Item Value Reference Range Interpretation Comments TROPONIN-I (test code = TROPI) < 0.02 ng/mL 0.00-0.07 N [id number] 23:24:00 Test Item Value Reference Range Interpretation Comments GLUBED (test code = GLUBED) 105 mg/dL 65-99 H THYROID STIMULATING [id number] 20:50:00 Test Item Value Reference Range Interpretation Comments THYROID STIMULATING HORMONE (test 0.66 mIU/mL 0.36-3.74 N code = TSH) Spec Comments: add to blood drawnHARDSTICK MISSED [id number] 20:50:00 Test Item Value Reference Range Interpretation Comments TROPONIN-I (test code = TROPI) < 0.02 ng/mL 0.00-0.07 N Spec Comments: add to blood drawnHARDSTICK MISSED [id number] 20:34:00 Test Item Value Reference Range Interpretation [...] Spec Comments: add to blood drawnHARDSTICK MISSED [id number] 17:24:00 Test Item Value Reference Range Interpretation Comments GLUBED (test code = GLUBED) 105 mg/dL 65-99 H [id number] 12:01:00 Test Item Value Reference Range Interpretation Comments GLUBED (test code = GLUBED) 109 mg/dL 65-99 H [id number] 06:09:00 Test Item Value Reference Range Interpretation Comments GLUBED (test code = GLUBED) 100 mg/dL 65-99 H [id number] 02:04:00 Test Item Value Reference Range Interpretation Comments GLUBED (test code = GLUBED) 100 mg/dL 65-99 H [id number] 21:52:00 Test Item Value Reference Range Interpretation Comments GLUBED (test code = GLUBED) 98 mg/dL 65-99 N [id number] 16:16:00 Test Item Value Reference Range Interpretation Comments GLUBED (test code = GLUBED) 88 mg/dL 65-99 N [id number] 11:33:00 Test Item Value Reference Range Interpretation Comments GLUBED (test code = GLUBED) 109 mg/dL 65-99 H [id number] 07:15:00 Test Item Value Reference Range Interpretation Comments GLUBED (test code = GLUBED) 72 mg/dL 65-99 N [id number] 06:09:00 Test Item Value Reference Range Interpretation Comments GLUBED (test code = GLUBED) 54 mg/dL 65-99 L [id number] 03:15:00 Test Item Value Reference Range Interpretation Comments GLUBED (test code = GLUBED) 94 mg/dL 65-99 N [id number] 02:50:00 Test Item Value Reference Range Interpretation Comments GLUBED (test code = 46 mg/dL 65-99 LL CRITICAL RESULT - GLUBED) TESTING PERFORM ED BY PRIMARY CAREGIV ER [id number] 00:44:00 Test Item Value Reference Range Interpretation Comments GLUBED (test code = GLUBED) 75 mg/dL 65-99 N [id number] 00:04:00 Test Item Value Reference Range Interpretation Comments GLUBED (test code = GLUBED) 63 mg/dL 65-99 L [id number] 17:39:00 Test Item Value Reference Range Interpretation Comments GLUBED (test code = GLUBED) 99 mg/dL 65-99 N [id number] 12:11:00 Test Item Value Reference Range Interpretation Comments GLUBED (test code = GLUBED) 112 mg/dL 65-99 H [id number] 06:10:00 Test Item Value Reference Range Interpretation Comments GLUBED (test code = GLUBED) 99 mg/dL 65-99 N [id number] 06:01:00 Test Item Value Reference Range Interpretation Comments GLUBED (test code = GLUBED) 109 mg/dL 65-99 H [id number] 23:55:00 Test Item Value Reference Range Interpretation Comments GLUBED (test code = GLUBED) 89 mg/dL 65-99 N [id number] 16:54:00 Test Item Value Reference Range Interpretation Comments GLUBED (test code = GLUBED) 114 mg/dL 65-99 H [id number] 12:41:00 Test Item Value Reference Range Interpretation Comments GLUBED (test code = GLUBED) 114 mg/dL 65-99 H [id number] 12:14:00 Test Item Value Reference Range Interpretation Comments MAGNESIUM (test code = MAG) 1.5 mg/dL 1.8-2.4 L CBC W/MANUAL [id number] 06:25:00 Test Item Value Reference Range Interpretation [...] NORMAL PLT MORPH NORMAL code = PLTMORPH) [id number] 06:20:00 Test Item Value Reference Range Interpretation Comments GLUBED (test code = GLUBED) 103 mg/dL 65-99 H COMPREHENSIVE METABOLIC [id number] 04:57:00 Test Item Value Reference Range Interpretation [...] PHOSPHATASE (test code = ALKP) CBC W/MANUAL [id number] 04:44:00 Test Item Value Reference Range Interpretation [...] PLATELET MORPHOLOGY (test code NORMAL = PLTMORPH) [id number] 21:29:00 Test Item Value Reference Range Interpretation Comments GLUBED (test code = GLUBED) 88 mg/dL 65-99 N [id number] 18:37:00 Test Item Value Reference Range Interpretation Comments GLUBED (test code = GLUBED) 98 mg/dL 65-99 N SED [id number] 13:32:00 Test Item Value Reference Range Interpretation Comments SED RATE (test code = SEDW) 61 mm/hr 0-20 H C REACTIVE [id number] 13:29:00 Test Item Value Reference Range Interpretation Comments C REACTIVE PROTEIN (test code = 10.30 mg/dL 0.00-0.33 H CRP) [id number] 12:16:00 Test Item Value Reference Range Interpretation Comments GLUBED (test code = GLUBED) 91 mg/dL 65-99 N [id number] 06:43:00 Test Item Value Reference Range Interpretation Comments GLUBED (test code = GLUBED) 114 mg/dL 65-99 H HGBA1C - GLYCOSYLATED [id number] 05:36:00 Test Item Value Reference Range Interpretation Comments GLYCOSYLATED HEMOGLOBIN (HA1C) (test 5.8 4.5-5.9 N code = GLYHGB) UA RFLX MICR CULT IF [id number] 04:26:00 Test Item Value Reference Range Interpretation [...] Moderate /HPF FEW SQU) Indication for culture: Dysuria/[id number] 02:30:00 Test Item Value Reference Range Interpretation Comments GLUBED (test code = GLUBED) 149 mg/dL 65-99 H [id number] 22:19:00 Test Item Value Reference Range Interpretation Comments GLUBED (test code = GLUBED) 165 mg/dL 65-99 H LACTIC [id number] 20:15:00 Test Item Value Reference Range Interpretation [...] 40 mg/dL 0-100 N Coronavirus 2019 nCoV [id number] 17:52:00 Test Item Value Reference Range Interpretation Comments Coronavirus 2019 Negative Negative This test h ad not been nCoV Bedside (test FDA clear ed or approved; code = [id number]) This te sthas been authorized by F [...] and/o r diagnosis of CO VID-19 under Gtsqppr29 4(b)(1) of the Act, 21 U.S .C. 360bbb-3(b)(1), unless theauthorizatio n is terminated or r evoked sooner. Is patient requiring admission or transfer? YIndication for rapid COVID-9 testing: Mod Clinical Suspicion- XR CHEST 1 [id number] 17:48:00Patient Name: JANIS CRAWFORD Unit No: [id number] EXAMS: CPT CODE: [id number] XR CHEST 1 V 70836 EXAM: Chest one view. Location: A1 HISTORY: [...] D/T: S: 07/03/2020 (175) Name: JANIS CRAWFORD [facility] [place] Phys: Angelica [place] [address] : 1960 Age: 59 Sex: [place] [phone] Loc: [place].ERTELE Exam Date: 07/03/2020 Status: ADM IN PH: FAX: PAGE 1 Signed ReportCBC W/MANUAL [id number] 16:35:00 Test Item Value Reference Range Interpretation [...] MORPH NORMAL code = PLTMORPH) CBC W/MANUAL [id number] 16:34:00 Test Item Value Reference Range Interpretation [...] (test code NORMAL = PLTMORPH) CBC W/MANUAL [id number] 16:34:00 Test Item Value Reference Range Interpretation [...] MORPHOLOGY (test code NORMAL = PLTMORPH) LACTIC [id number] 16:15:00 Test Item Value Reference Range Interpretation Comments LACTIC ACID (test 2.5 mmol/L 0.4-2.0 H Elevated L actate code = LACT) reported to the following Caregiver:Full Name/Title: RELL POSADA/James GALINDO, on 07/03/20, @ 161 5 BASIC METABOLIC [id number] 16:00:00 Test Item Value Reference Range Interpretation [...] N = CA) - CT HEAD/BRAIN W/O [id number] 19:08:00Patient Name: JANIS CRAWFORD Unit No: [id number] EXAMS: CPT CODE: [id number] CT HEAD/BRAIN W/O CONT 13834 LOCATION: H43 EXAM: CT HEAD WO CONTRAST HISTORY: Status post fall. TECHNIQUE: Axial imaging the brain from skull base to the vertex without the administration of intravenous contrast. Sagittal and Coronal reconstructions. CT scan performed using appropriate/available dose optimization/reduction techniques. VKP837.7 m Gy*cm COMPARISON: None. FINDINGS: There is [...] by: Celina Harden MD Name: JANIS CRAWFORD [facility] Phys: ROSA - Jaclyn Nelson [address] [facility] : Age: 59 Sex: [place] [phone] Loc: [place].ERS Exam Date: 06/04/2020 Status: REG ER PH: FAX: PAGE 1 Signed Report (CONTINUED) Patient Name: JANIS CRAWFORD Unit No: [id number] EXAMS: CPT CODE: [id number] CT HEAD/BRAIN W/O CONT 55646 <Continued> CC: Kayley Belcher DO; Jaclyn Nelson TUTORING ASSISTANT Technologist: Katia Stevens; Dee Henderson CTDI: 49.60 DLP: 938.7 Trscr Dt/Tm: 06/04/2020 (1907) by:[email or web address] Electronic Signature Date/Time: 06/04/2020 (1907)Orig Print D/T: S: 06/04/2020 (1910) Name: JANIS CRAWFORD [facility] [place] Phys: STJOVANYE - Jaclyn Nelson [address] [facility] : 1960 Age: 59 Sex: [place] [phone] Loc: [place].ERS Exam Date: 06/04/2020 Status: REG ER PH: FAX: PAGE 2 Signed Report COMPREHENSIVE METABOLIC [id number] 18:53:00 Test Item Value Reference Range Interpretation [...] PHOSPHATASE (test code = ALKP) COMPREHENSIVE METABOLIC [id number] 18:44:00 Test Item Value Reference Range Interpretation [...] code = U/L 45-117 ALKP) CBC W/AUTO [id number] 18:33:00 Test Item Value Reference Range Interpretation [...] BA#) 0.04 10 3/uL 0.0-0.1 N Urine [id number] 08:19:18No growth at 2 days.Blood [id number] 06:01:35 Test Item Value Reference Range Interpretation [...] by: hamilton steven/rolf 04/04/20 08:34:59 lg POC [id number] 22:18:13 Test Item Value Reference Range Interpretation Comments Glucose POC (test 139 mg/dL 74-106 H POC Glucos e used on code = Glucose POC) critical ly ill patients is considered " off-label use" and has no t been cleared or appr zuly by the FDA. Altern ative testing methods should be considered i f the patient is crit ically ill. POC [id number] 18:21:08 Test Item Value Reference Range Interpretation Comments Glucose POC (test 140 mg/dL 74-106 H POC Glucos e used on code = Glucose POC) critical ly ill patients is considered " off-label use" and has no t been cleared or appr zuly by the FDA. Altern ative testing methods should be considered i f the patient is crit ically ill. POC [id number] 17:08:01 Test Item Value Reference Range Interpretation Comments Glucose POC (test 150 mg/dL 74-106 H POC Glucos e used on code = Glucose POC) critical ly ill patients is considered " off-label use" and has no t been cleared or appr zuly by the FDA. Altern ative testing methods should be considered i f the patient is crit ically ill. Novel Coronavirus SARS-CoV-2, [id number] 17:07:53 Test Item Value Reference Range Interpretation [...] Drug Administration s Emergency Use Authorization. POC [id number] 14:12:08 Test Item Value Reference Range Interpretation Comments Glucose POC (test 157 mg/dL 74-106 H POC Glucos e used on code = Glucose POC) critical ly ill patients is considered " off-label use" and has no t been cleared or appr zuly by the FDA. Altern ative testing methods should be considered i f the patient is crit ically ill. POC [id number] 11:30:53 Test Item Value Reference Range Interpretation Comments Glucose POC (test 167 mg/dL 74-106 H POC Glucos e used on code = Glucose POC) critical ly ill patients is considered " off-label use" and has no t been cleared or appr zuly by the FDA. Altern ative testing methods should be considered i f the patient is crit ically ill. POC G3+ [id number] 09:51:24 Test Item Value Reference Range Interpretation [...] VT (cc)) 500.0 N Red Blood Cells [id number] 09:49:37 Test Item Value Reference Range Interpretation Comments # of Units (test code = 1 N # of Units) RBC Trn Reason (test High risk, even if N code = RBC Trn Reason) Hgb > 7 RBC Product Ready (test RBC Ready code = RBC Product Ready) XR Chest 1 View [id number] 09:01:31Patient: JANIS PATTERSON Date/Time04/02/2020 06:40 CDTReason for [...] Valdez Joseph ASigned (Electronic Signature): 04/02/2020 9:01 [id number] 08:55:25 Test Item Value Reference Range Interpretation Comments Previous History (test code Yes Prev History = Previous History) BBID (test code = BBID) G06741 Methodology (test code = Ortho-Vision(OV) Methodology) Anti-A (test code = Anti-A) 4+ Anti-B (test code = Anti-B) 4+ Anti-D (test code = Anti-D) 4+ DCon (test code = DCon) 0 A1 (test code = A1) 0 B cells (test code = B 0 cells) ABORh (test code = ABORh) AB POS 2C [id number] 08:55:25 Test Item Value Reference Range Interpretation Comments Methodology (test code = Ortho-Vision(OV) Methodology) SC1 (test code = SC1) 0 SC2 (test code = SC2) 0 Antibody Screen (2C) (test Negative ABSC code = Antibody Screen (2C)) POC [id number] 08:32:55 Test Item Value Reference Range Interpretation [...] crit ically ill. Respiratory Culture w/ Gram [id number] 08:32:10 Test Item Value Reference Range Interpretation [...] Gram Stain Cocci Report) Prothrombin Time and [id number] 08:12:21 Test Item Value Reference Range Interpretation Comments Prothrombin Time (test code = 12.7 seconds 9.2-12.0 H Prothrombin Time) INR (test code = INR) 1.2 ratio 0.9-1.2 [id number] 08:10:04 Test Item Value Reference Range Interpretation Comments RBC Morph (test code = RBC As Indicated Normal A Morph) Anisocyte (test code = 2+ A Anisocyte) Hypochromia (test code = 2+ A Hypochromia) Plt Estimation (test code = Plt Decreased Normal A Estimation) POC [id number] 06:20:00 Test Item Value Reference Range Interpretation Comments Glucose POC (test 181 mg/dL 74-106 H POC Glucos e used on code = Glucose POC) critical ly ill patients is considered " off-label use" and has no t been cleared or appr zuly by the FDA. Altern ative testing methods should be considered i f the patient is crit ically ill. POC [id number] 06:19:59 Test Item Value Reference Range Interpretation Comments Glucose POC (test 184 mg/dL 74-106 H POC Glucos e used on code = Glucose POC) critical ly ill patients is considered " off-label use" and has no t been cleared or appr zuly by the FDA. Altern ative testing methods should be considered i f the patient is crit ically ill. POC [id number] 06:19:59 Test Item Value Reference Range Interpretation Comments Glucose POC (test 178 mg/dL 74-106 H POC Glucos e used on code = Glucose POC) critical ly ill patients is considered " off-label use" and has no t been cleared or appr zuly by the FDA. Altern ative testing methods should be considered i f the patient is crit ically ill. Procalcitonin [id number] 05:00:07 Test Item Value Reference Range Interpretation [...] sepsi s or septic shock. Comprehensive Metabolic [id number] 04:45:15 Test Item Value Reference Range Interpretation [...] 33 mL/min/1.73 m2 N AA) Comprehensive Metabolic [id number] 04:45:15 Test Item Value Reference Range Interpretation [...] eGFR 33 mL/min/1.73 m2 N AA) Lipase [id number] 04:45:15 Test Item Value Reference Range Interpretation Comments Lipase Level (test code = 133 IntlUnit/L 73-393 Lipase Level) Magnesium [id number] 04:45:15 Test Item Value Reference Range Interpretation Comments Magnesium Level (test code = 1.8 mg/dL 1.6-2.6 Magnesium Level) Thyroid Stimulating [id number] 04:45:15 Test Item Value Reference Range Interpretation Comments TSH (test code = TSH) 0.514 IntlUnit/mL 0.358-3.740 Pro B Natriuretic [id number] 04:45:15 Test Item Value Reference Range Interpretation Comments NT-proBNP (test 50646 pg/mL 0-125 H < 300 pg/ml - heart code = NT-proBNP) failure un likelyAge less than 50 years, > 450 pg/ml - heart f ailure lilkelyAge 50 - 75 years, > 900 pg /ml - heart failure l ikelyAge greater than 75 years, > 1800 pg/ml - he art failure likely Comprehensive Metabolic [id number] 04:45:15 Test Item Value Reference Range Interpretation [...] mL/min/1.73 m2 N eGFR Non-AA) Partial Thromboplastin [id number] 04:29:37 Test Item Value Reference Range Interpretation Comments Partial Thromboplastin 30.7 seconds 24.0-35.0 APTT Heparin Time (test code = Therapeuti c Range: Partial Thromboplastin 47.9- 80.4 seconds Time) Complete Blood Count with [id number] 04:29:19 Test Item Value Reference Range Interpretation [...] Smear N code = Slide Review) Automated [id number] 04:29:19 Test Item Value Reference Range Interpretation Comments Neutro Auto (test code = Neutro 72.2 % N Auto) Lymph Auto (test code = Lymph Auto) 20.0 % N Dewey Auto (test code = Dewey Auto) 5.0 % N Eos, Auto (test code = Eos, Auto) 2.4 % N Basophil Auto (test code = Basophil 0.4 % N Auto) Neutro Absolute (test code = Neutro 13.7 x10 2.7-7.3 H Absolute) Lymph Absolute (test code = Lymph 3.8 x10 0.8-3.5 H Absolute) Dewey Absolute (test code = Dewey 0.9 x10 0.3-0.9 Absolute) Eos Absolute (test code = Eos 0.5 x10 0.0-0.3 H Absolute) Baso Absolute (test code = Baso 0.1 x10 0.0-0.1 Absolute) Ammonia [id number] 04:25:10 Test Item Value Reference Range Interpretation Comments Ammonia Level (test code = Ammonia 44 mmol/L 19-54 Level) POC [id number] 02:23:52 Test Item Value Reference Range Interpretation Comments Glucose POC (test 192 mg/dL 74-106 H POC Glucos e used on code = Glucose POC) critical ly ill patients is considered " off-label use" and has no t been cleared or appr zuly by the FDA. Altern ative testing methods should be considered i f the patient is crit ically ill. POC [id number] 01:09:42 Test Item Value Reference Range Interpretation Comments Glucose POC (test 197 mg/dL 74-106 H POC Glucos e used on code = Glucose POC) critical ly ill patients is considered " off-label use" and has no t been cleared or appr zuly by the FDA. Altern ative testing methods should be considered i f the patient is crit ically ill. POC [id number] 01:09:42 Test Item Value Reference Range Interpretation Comments Glucose POC (test 202 mg/dL 74-106 H POC Glucos e used on code = Glucose POC) critical ly ill patients is considered " off-label use" and has no t been cleared or appr zuly by the FDA. Altern ative testing methods should be considered i f the patient is crit ically ill. POC [id number] 01:09:40 Test Item Value Reference Range Interpretation Comments Glucose POC (test 209 mg/dL 74-106 H POC Glucos e used on code = Glucose POC) critical ly ill patients is considered " off-label use" and has no t been cleared or appr zuly by the FDA. Altern ative testing methods should be considered i f the patient is crit ically ill. POC [id number] 01:09:39 Test Item Value Reference Range Interpretation Comments Glucose POC (test 177 mg/dL 74-106 H POC Glucos e used on code = Glucose POC) critical ly ill patients is considered " off-label use" and has no t been cleared or appr zuly by the FDA. Altern ative testing methods should be considered i f the patient is crit ically ill. POC [id number] 01:09:38 Test Item Value Reference Range Interpretation Comments Glucose POC (test 133 mg/dL 74-106 H POC Glucos e used on code = Glucose POC) critical ly ill patients is considered " off-label use" and has no t been cleared or appr zuly by the FDA. Altern ative testing methods should be considered i f the patient is crit ically ill. POC [id number] 01:09:37 Test Item Value Reference Range Interpretation Comments Glucose POC (test 122 mg/dL 74-106 H POC Glucos e used on code = Glucose POC) critical ly ill patients is considered " off-label use" and has no t been cleared or appr zuly by the FDA. Altern ative testing methods should be considered i f the patient is crit ically ill. POC [id number] 01:09:36 Test Item Value Reference Range Interpretation Comments Glucose POC (test 106 mg/dL 74-106 POC Glucos e used on code = Glucose POC) critical ly ill patients is considered " off-label use" and has no t been cleared or appr zuly by the FDA. Altern ative testing methods should be considered i f the patient is crit ically ill. POC [id number] 18:14:16 Test Item Value Reference Range Interpretation Comments Glucose POC (test 114 mg/dL 74-106 H POC Glucos e used on code = Glucose POC) critical ly ill patients is considered " off-label use" and has no t been cleared or appr zuly by the FDA. Altern ative testing methods should be considered i f the patient is crit ically ill. POC [id number] 16:34:02 Test Item Value Reference Range Interpretation Comments Glucose POC (test 125 mg/dL 74-106 H POC Glucos e used on code = Glucose POC) critical ly ill patients is considered " off-label use" and has no t been cleared or appr zuly by the FDA. Altern ative testing methods should be considered i f the patient is crit ically ill. Basic Metabolic [id number] 15:04:15 Test Item Value Reference Range Interpretation [...] 8.0 mg/dL 8.5-10.1 L Level) Basic Metabolic [id number] 15:04:15 Test Item Value Reference Range Interpretation [...] mL/min/1.73 m2 N eGFR Non-AA) Basic Metabolic [id number] 15:04:15 Test Item Value Reference Range Interpretation [...] 24 mL/min/1.73 m2 N eGFR Non-AA) POC [id number] 14:39:00 Test Item Value Reference Range Interpretation Comments Glucose POC (test 150 mg/dL 74-106 H POC Glucos e used on code = Glucose POC) critical ly ill patients is considered " off-label use" and has no t been cleared or appr zuly by the FDA. Altern ative testing methods should be considered i f the patient is crit ically ill. [id number] 14:36:42 Test Item Value Reference Range Interpretation Comments Acetone (Ketones) (test code = Negative Negative Acetone (Ketones)) POC [id number] 13:00:16 Test Item Value Reference Range Interpretation Comments Glucose POC (test 153 mg/dL 74-106 H POC Glucos e used on code = Glucose POC) critical ly ill patients is considered " off-label use" and has no t been cleared or appr zuly by the FDA. Altern ative testing methods should be considered i f the patient is crit ically ill. POC [id number] 11:05:01 Test Item Value Reference Range Interpretation Comments Glucose POC (test 189 mg/dL 74-106 H POC Glucos e used on code = Glucose POC) critical ly ill patients is considered " off-label use" and has no t been cleared or appr zuly by the FDA. Altern ative testing methods should be considered i f the patient is crit ically ill. POC [id number] 10:28:41 Test Item Value Reference Range Interpretation Comments Glucose POC (test 208 mg/dL 74-106 H POC Glucos e used on code = Glucose POC) critical ly ill patients is considered " off-label use" and has no t been cleared or appr zuly by the FDA. Altern ative testing methods should be considered i f the patient is crit ically ill. Automated [id number] 09:37:36 Test Item Value Reference Range Interpretation Comments Neutro Auto (test code = Neutro 76.5 % N Auto) Lymph Auto (test code = Lymph Auto) 18.8 % N Dewey Auto (test code = Dewey Auto) 4.5 % N Eos, Auto (test code = Eos, Auto) 0.0 % N Basophil Auto (test code = Basophil 0.2 % N Auto) Neutro Absolute (test code = Neutro 13.4 x10 2.7-7.3 H Absolute) Lymph Absolute (test code = Lymph 3.3 x10 0.8-3.5 Absolute) Dewey Absolute (test code = Dewey 0.8 x10 0.3-0.9 Absolute) Eos Absolute (test code = Eos 0.0 x10 0.0-0.3 Absolute) Baso Absolute (test code = Baso 0.0 x10 0.0-0.1 Absolute) POC [id number] 09:18:07 Test Item Value Reference Range Interpretation Comments Glucose POC (test 216 mg/dL 74-106 H POC Glucos e used on code = Glucose POC) critical ly ill patients is considered " off-label use" and has no t been cleared or appr zuly by the FDA. Altern ative testing methods should be considered i f the patient is crit ically ill. POC [id number] 08:09:31 Test Item Value Reference Range Interpretation Comments Glucose POC (test 209 mg/dL 74-106 H POC Glucos e used on code = Glucose POC) critical ly ill patients is considered " off-label use" and has no t been cleared or appr zuly by the FDA. Altern ative testing methods should be considered i f the patient is crit ically ill. Prothrombin Time and [id number] 07:10:51 Test Item Value Reference Range Interpretation Comments Prothrombin Time (test code = 24.6 seconds 9.2-12.0 H Prothrombin Time) INR (test code = INR) 2.4 ratio 0.9-1.2 H POC [id number] 07:09:31 Test Item Value Reference Range Interpretation Comments Glucose POC (test 214 mg/dL 74-106 H POC Glucos e used on code = Glucose POC) critical ly ill patients is considered " off-label use" and has no t been cleared or appr zuly by the FDA. Altern ative testing methods should be considered i f the patient is crit ically ill. Partial Thromboplastin [id number] 06:59:00 Test Item Value Reference Range Interpretation Comments Partial Thromboplastin 39.3 seconds 24.0-35.0 H APTT Heparin Time (test code = Therapeuti c Range: Partial Thromboplastin 47.9- 80.4 seconds Time) Haptoglobin [id number] 06:11:38<10Performed At: [facility] [id number] Sanjai MD Ph:[phone] Glucose 2020-04-01 06:07:13 Test Item Value Reference Range Interpretation Comments Glucose POC (test 204 mg/dL 74-106 H POC Glucos e used on code = Glucose POC) critical ly ill patients is considered " off-label use" and has no t been cleared or appr zuly by the FDA. Altern ative testing methods should be considered i f the patient is crit ically ill. POC [id number] 06:07:12 Test Item Value Reference Range Interpretation Comments Glucose POC (test 238 mg/dL 74-106 H POC Glucos e used on code = Glucose POC) critical ly ill patients is considered " off-label use" and has no t been cleared or appr zuly by the FDA. Altern ative testing methods should be considered i f the patient is crit ically ill. POC [id number] 06:07:11 Test Item Value Reference Range Interpretation Comments Glucose POC (test 269 mg/dL 74-106 H POC Glucos e used on code = Glucose POC) critical ly ill patients is considered " off-label use" and has no t been cleared or appr zuly by the FDA. Altern ative testing methods should be considered i f the patient is crit ically ill. Comprehensive Metabolic [id number] 04:53:13 Test Item Value Reference Range Interpretation [...] = AST) 111 IntlUnit/L 15-37 H Lipase [id number] 04:53:13 Test Item Value Reference Range Interpretation Comments Lipase Level (test code = 228 IntlUnit/L 73-393 Lipase Level) Comprehensive Metabolic [id number] 04:53:13 Test Item Value Reference Range Interpretation [...] 29 mL/min/1.73 m2 N AA) Comprehensive Metabolic [id number] 04:53:13 Test Item Value Reference Range Interpretation [...] eGFR Non-AA) Complete Blood Count with Man [id number] 04:39:50 Test Item Value Reference Range Interpretation [...] (test code = 38 x10 140-440 [facility] Platelets) 04/01/2020 04: 39:44 CDT/lrj MPV (test code = MPV) 6.8 fL 7.5-11.2 L POC [id number] 03:06:47 Test Item Value Reference Range Interpretation Comments Glucose POC (test 320 mg/dL 74-106 H POC Glucos e used on code = Glucose POC) critical ly ill patients is considered " off-label use" and has no t been cleared or appr zuly by the FDA. Altern ative testing methods should be considered i f the patient is crit ically ill. POC [id number] 02:45:11 Test Item Value Reference Range Interpretation Comments Glucose POC (test 364 mg/dL 74-106 H POC Glucos e used on code = Glucose POC) critical ly ill patients is considered " off-label use" and has no t been cleared or appr zuly by the FDA. Altern ative testing methods should be considered i f the patient is crit ically ill. POC [id number] 02:45:10 Test Item Value Reference Range Interpretation Comments Glucose POC (test 418 mg/dL 74-106 Notifie dPOC Glucose code = Glucose POC) used on critically ill patients is con sidered "off-label use" and has not been cleare d or approved by the FDA. Alternative moisés ting methods should be considered if t he patient is crit ically ill. XR Chest 1 View [id number] 01:58:04Patient: JANIS PATTERSON Date/Time04/01/2020 01:05 CDTReason for [...] the right lung, suggestive of pneumonia.RL: [id number]: [id number] signed by Jazlyn Le MD, PhD at 04/01/2020 2:00 AM FinalDictated by: Contributor_system, PSCRIBE_CTZDictated DT/TM: 04/01/2020 2:01 amSigned by: MD Dawson, Jazlyn GSigned (Electronic Signature): 04/01/2020 1:58 amPOC G3+ [id number] 01:42:00 Test Item Value Reference Range Interpretation [...] code = VT (cc)) 500.0 N POC [id number] 22:44:29 Test Item Value Reference Range Interpretation Comments Glucose POC (test 477 mg/dL 74-106 Notifie dPOC Glucose code = Glucose POC) used on critically ill patients is con sidered "off-label use" and has not been cleare d or approved by the FDA. Alternative moisés ting methods should be considered if t he patient is crit ically ill. POC [id number] 21:40:39 Test Item Value Reference Range Interpretation Comments Glucose POC (test 523 mg/dL 74-106 Ordered La b DrawPOC code = Glucose POC) Glucose used on critically ill patients is considered " off-label use" and has no t been cleared or appr zuly by the FDA. Altern ative testing methods should be considered i f the patient is crit ically ill. POC [id number] 21:40:38 Test Item Value Reference Range Interpretation Comments Glucose POC (test 538 mg/dL 74-106 Result Not ConfirmedPOC code = Glucose POC) Glucose used on critically ill patients is considered " off-label use" and has no t been cleared or appr zuly by the FDA. Altern ative testing methods should be considered i f the patient is crit ically ill. POC [id number] 21:40:37 Test Item Value Reference Range Interpretation Comments Glucose POC (test 593 mg/dL 74-106 Result Not ConfirmedPOC code = Glucose POC) Glucose used on critically ill patients is considered " off-label use" and has no t been cleared or appr zuly by the FDA. Altern ative testing methods should be considered i f the patient is crit ically ill. XR Chest 1 View [id number] 20:42:40Patient: JANIS PATTERSON Date/Time03/31/2020 20:35 CDTReason for [...] Moreno (Electronic Signature): 03/31/2020 8:42 pmPOC G3+ [id number] 20:26:58 Test Item Value Reference Range Interpretation [...] = R Radial N Performing Site) POC [id number] 19:50:11 Test Item Value Reference Range Interpretation Comments Glucose POC (test 482 mg/dL 74-106 Result Not ConfirmedPOC code = Glucose POC) Glucose used on critically ill patients is considered " off-label use" and has no t been cleared or appr zuly by the FDA. Altern ative testing methods should be considered i f the patient is crit ically ill. POC [id number] 19:50:09 Test Item Value Reference Range Interpretation Comments Glucose POC (test 501 mg/dL 74-106 MD Jordan dPPEDRO Glucose code = Glucose POC) used on critically ill patients is con sidered "off-label use" and has not been cleare d or approved by the FDA. Alternative moisés ting methods should be considered if t he patient is crit ically ill. POC [id number] 19:50:08 Test Item Value Reference Range Interpretation Comments Glucose POC (test 484 mg/dL 74-106 MD Jordan dPPEDRO Glucose code = Glucose POC) used on critically ill patients is con sidered "off-label use" and has not been cleare d or approved by the FDA. Alternative moisés ting methods should be considered if t he patient is crit ically ill. POC [id number] 19:50:06 Test Item Value Reference Range Interpretation Comments Glucose POC (test 436 mg/dL 74-106 MD Nikki Stokes Glucose code = Glucose POC) used on critically ill patients is con sidered "off-label use" and has not been cleare d or approved by the FDA. Alternative moisés ting methods should be considered if t he patient is crit ically ill. POC [id number] 17:18:46 Test Item Value Reference Range Interpretation Comments Glucose POC (test 416 mg/dL 74-106 Result Not ConfirmedPOC code = Glucose POC) Glucose used on critically ill patients is considered " off-label use" and has no t been cleared or appr zuly by the FDA. Altern ative testing methods should be considered i f the patient is crit ically ill. Red Blood Cells [id number] 10:21:34 Test Item Value Reference Range Interpretation Comments # of Units (test 1 N code = # of Units) RBC Trn Reason High risk, even N (test code = RBC if Hgb > 7 Trn Reason) RBC Product Ready RBC Ready 03/31/2020 10:21 (test code = RBC OATISJUCALL ED TO Product Ready) MAE Hruakefmsw7015-03-32 08:40:13 Test Item Value Reference Range Interpretation Comments RBC Morph (test code = RBC As Indicated Normal A Morph) Anisocyte (test code = 2+ A Anisocyte) Hypochromia (test code = 2+ A Hypochromia) Plt Estimation (test code = Plt Decreased Normal A Estimation) Complete Blood Count with [id number] 08:22:12 Test Item Value Reference Range Interpretation [...] code Smear N = Slide Review) Automated [id number] 08:22:12 Test Item Value Reference Range Interpretation Comments Neutro Auto (test code = Neutro Auto) 75.0 % N Lymph Auto (test code = Lymph Auto) 18.9 % N Dewey Auto (test code = Dewey Auto) 5.3 % N Eos, Auto (test code = Eos, Auto) 0.2 % N Basophil Auto (test code = Basophil 0.6 % N Auto) Neutro Absolute (test code = Neutro 7.8 x10 2.7-7.3 H Absolute) Lymph Absolute (test code = Lymph 2.0 x10 0.8-3.5 Absolute) Dewey Absolute (test code = Dewey 0.6 x10 0.3-0.9 Absolute) Eos Absolute (test code = Eos 0.0 x10 0.0-0.3 Absolute) Baso Absolute (test code = Baso 0.1 x10 0.0-0.1 Absolute) Lactate [id number] 08:15:14 Test Item Value Reference Range Interpretation Comments LDH (test code = LDH) 1651 IntlUnit/L 84-246 H Basic Metabolic [id number] 07:03:40 Test Item Value Reference Range Interpretation [...] L code = Calcium Level) Basic Metabolic [id number] 07:03:40 Test Item Value Reference Range Interpretation [...] mL/min/1.73 N eGFR AA) m2 Basic Metabolic [id number] 07:03:40 Test Item Value Reference Range Interpretation [...] N code = eGFR Non-AA) m2 POC [id number] 21:51:26 Test Item Value Reference Range Interpretation Comments Glucose POC (test 298 mg/dL 74-106 H POC Glucos e used on code = Glucose POC) critical ly ill patients is considered " off-label use" and has no t been cleared or appr zuly by the FDA. Altern ative testing methods should be considered i f the patient is crit ically ill. Fresh Frozen [id number] 17:22:36 Test Item Value Reference Range Interpretation Comments # of Units (test code = # 2 N of Units) FFP Transfuse Reason TTP, N (test code = FFP Hemolytic-uremic Transfuse Reason) syndrome, or DIC FFP Product Ready (test FFP Ready code = FFP Product Ready) [id number] 16:56:18Patient: JANIS PATTERSON Date/Time03/30/2020 16:33 CDTReason for [...] 03/30/2020 4:56 pmUS Lower Ext Venous Duplex [id number] 16:52:20 Patient: JANIS PATTERSON Date/Time03/30/2020 16:33 CDTReason [...] (Electronic Signature): 03/30/2020 4:52 pmHeparin Induced Platelet [id number] 14:16:060.100Performed At: [facility] [address] [id number] Sanjai MD Ph:[phone] [id number] 13:40:14 Test Item Value Reference Range Interpretation Comments # of Units (test code = 1 N # of Units) PLT Transfuse Reason Plts <50,000 with N (test code = PLT bleeding or procedure Transfuse Reason) Platelet Product Ready PLT Ready (test code = Platelet Product Ready) POC [id number] 12:14:06 Test Item Value Reference Range Interpretation Comments Glucose POC (test 316 mg/dL 74-106 H POC Glucos e used on code = Glucose POC) critical ly ill patients is considered " off-label use" and has no t been cleared or appr zuly by the FDA. Altern ative testing methods should be considered i f the patient is crit ically ill. [id number] 09:30:25 Test Item Value Reference Range Interpretation [...] = Plt Decreased Normal A Estimation) DANA [id number] 08:40:11 Test Item Value Reference Range Interpretation Comments Methodology (test code = Test-Tube(TT) Methodology) Poly (test code = Poly) 0 5 " Poly (test code = 5 " Poly) 0 Poly CC (test code = Poly CC) 2+ DANA - Polyspecific (test code = Negative DANA - Polyspecific) Complete Blood Count with Uerlyakszqmo2827-18-03 07:54:03 Test Item Value Reference Range Interpretation [...] code Smear N = Slide Review) Automated Qfpshilwmagp4796-47-14 07:54:03 Test Item Value Reference Range Interpretation Comments Neutro Auto (test code = Neutro Auto) 58.7 % N Lymph Auto (test code = Lymph Auto) 25.8 % N Dewey Auto (test code = Dewey Auto) 11.3 % N Eos, Auto (test code = Eos, Auto) 3.4 % N Basophil Auto (test code = Basophil 0.8 % N Auto) Neutro Absolute (test code = Neutro 5.7 x10 2.7-7.3 Absolute) Lymph Absolute (test code = Lymph 2.5 x10 0.8-3.5 Absolute) Dewey Absolute (test code = Dewey 1.1 x10 0.3-0.9 H Absolute) Eos Absolute (test code = Eos 0.3 x10 0.0-0.3 Absolute) Baso Absolute (test code = Baso 0.1 x10 0.0-0.1 Absolute) D-Dimer Tdkbomirsjgm2711-20-19 07:54:03 Test Item Value Reference Range Interpretation [...] is of DVT or PEunlikely. Comprehensive Metabolic [id number] 07:34:37 Test Item Value Reference Range Interpretation [...] = AST) 59 IntlUnit/L 15-37 H Lactate Gathptrpbvojf4010-81-06 07:34:37 Test Item Value Reference Range Interpretation Comments LDH (test code = LDH) 1335 IntlUnit/L 84-246 H Comprehensive Metabolic [id number] 07:34:37 Test Item Value Reference Range Interpretation [...] eGFR 56 mL/min/1.73 m2 N AA) Lipase [id number] 07:34:37 Test Item Value Reference Range Interpretation Comments Lipase Level (test code = 492 IntlUnit/L 73-393 H Lipase Level) Bilirubin [id number] 07:34:37 Test Item Value Reference Range Interpretation Comments Bilirubin Direct (test code = 2.60 mg/dL 0.00-0.20 H Bilirubin Direct) Comprehensive Metabolic [id number] 07:34:37 Test Item Value Reference Range Interpretation [...] 46 mL/min/1.73 m2 N eGFR Non-AA) Reticulocyte [id number] 07:32:16 Test Item Value Reference Range Interpretation Comments Reticulocyte % (test code = 4.6 % 0.5-2.5 H Reticulocyte %) Prothrombin Time and [id number] 06:47:18 Test Item Value Reference Range Interpretation Comments Prothrombin Time (test code = 17.5 seconds 9.2-12.0 H Prothrombin Time) INR (test code = INR) 1.7 ratio 0.9-1.2 H Partial Thromboplastin [id number] 06:47:18 Test Item Value Reference Range Interpretation Comments Partial Thromboplastin 47.6 seconds 24.0-35.0 H APTT Heparin Time (test code = Therapeuti c Range: Partial Thromboplastin 47.9- 80.4 seconds Time) POC [id number] 05:41:33 Test Item Value Reference Range Interpretation Comments Glucose POC (test 292 mg/dL 74-106 H POC Glucos e used on code = Glucose POC) critical ly ill patients is considered " off-label use" and has no t been cleared or appr zuly by the FDA. Altern ative testing methods should be considered i f the patient is crit ically ill. POC [id number] 20:14:35 Test Item Value Reference Range Interpretation Comments Glucose POC (test 194 mg/dL 74-106 H POC Glucos e used on code = Glucose POC) critical ly ill patients is considered " off-label use" and has no t been cleared or appr zuly by the FDA. Altern ative testing methods should be considered i f the patient is crit ically ill. POC [id number] 16:54:44 Test Item Value Reference Range Interpretation Comments Glucose POC (test 205 mg/dL 74-106 H POC Glucos e used on code = Glucose POC) critical ly ill patients is considered " off-label use" and has no t been cleared or appr zuly by the FDA. Altern ative testing methods should be considered i f the patient is crit ically ill. Magnesium [id number] 13:15:11 Test Item Value Reference Range Interpretation Comments Magnesium Level (test code = 1.8 mg/dL 1.6-2.6 Magnesium Level) Platelet [id number] 12:35:33 Test Item Value Reference Range Interpretation Comments # of Units (test code = # of 1 N Units) PLT Transfuse Reason (test code Plts <20,000 N = PLT Transfuse Reason) Platelet Product Ready (test PLT Ready code = Platelet Product Ready) Red Blood Cells Eowedjjoquzi1629-14-86 12:35:32 Test Item Value Reference Range Interpretation Comments # of Units (test code = 1 N # of Units) RBC Trn Reason (test High risk, even if N code = RBC Trn Reason) Hgb > 7 RBC Product Ready (test RBC Ready code = RBC Product Ready) [id number] 12:27:50 Test Item Value Reference Range Interpretation Comments Previous History (test code Yes Prev History = Previous History) BBID (test code = BBID) [id number] Methodology (test code = Ortho-Vision(OV) Methodology) Anti-A (test code = Anti-A) 4+ Anti-B (test code = Anti-B) 4+ Anti-D (test code = Anti-D) 4+ DCon (test code = DCon) 0 A1 (test code = A1) 0 B cells (test code = B 0 cells) ABORh (test code = ABORh) AB POS 2C [id number] 12:27:50 Test Item Value Reference Range Interpretation Comments Methodology (test code = Ortho-Vision(OV) Methodology) SC1 (test code = SC1) 0 SC2 (test code = SC2) 0 Antibody Screen (2C) (test Negative ABSC code = Antibody Screen (2C)) POC [id number] 11:15:10 Test Item Value Reference Range Interpretation Comments Glucose POC (test 230 mg/dL 74-106 H POC Glucos e used on code = Glucose POC) critical ly ill patients is considered " off-label use" and has no t been cleared or appr zuly by the FDA. Altern ative testing methods should be considered i f the patient is crit ically ill. Comprehensive Metabolic Wfjmw8537-01-08 09:26:11 Test Item Value Reference Range Interpretation [...] AST) 54 IntlUnit/L 15-37 H Comprehensive Metabolic [id number] 09:26:11 Test Item Value Reference Range Interpretation [...] eGFR 56 mL/min/1.73 m2 N AA) Lipase [id number] 09:26:11 Test Item Value Reference Range Interpretation Comments Lipase Level (test code = 466 IntlUnit/L 73-393 H Lipase Level) Comprehensive Metabolic [id number] 09:26:11 Test Item Value Reference Range Interpretation [...] = 46 mL/min/1.73 m2 N eGFR Non-AA) [id number] 09:25:40 Test Item Value Reference Range Interpretation [...] Normal A Estimation) Complete Blood Count with Njzmxuypvxxt1759-70-12 09:06:53 Test Item Value Reference Range Interpretation Comments WBC (test code = WBC) 9.0 x10 4.8-10.8 RBC (test code = RBC) 2.64 x10 4.20-5.50 L Hgb (test code = Hgb) 7.7 g/dL 12.0-16.0 CTRB Juliana CUNAH Marj03/29/2020 09:05:38 CDT/PN Hct (test code = [...] code Smear N = Slide Review) Automated [id number] 09:06:53 Test Item Value Reference Range Interpretation Comments Neutro Auto (test code = Neutro Auto) 57.9 % N Lymph Auto (test code = Lymph Auto) 27.6 % N Dewey Auto (test code = Dewey Auto) 10.6 % N Eos, Auto (test code = Eos, Auto) 3.1 % N Basophil Auto (test code = Basophil 0.8 % N Auto) Neutro Absolute (test code = Neutro 5.2 x10 2.7-7.3 Absolute) Lymph Absolute (test code = Lymph 2.5 x10 0.8-3.5 Absolute) Dewey Absolute (test code = Dewey 1.0 x10 0.3-0.9 H Absolute) Eos Absolute (test code = Eos 0.3 x10 0.0-0.3 Absolute) Baso Absolute (test code = Baso 0.1 x10 0.0-0.1 Absolute) XR Abdomen 2 [id number] 09:00:16Patient: JANIS PATTERSON Date/Time03/29/2020 08:22 CDTReason for [...] Errol, SamerSigned (Electronic Signature): 03/29/2020 9:00 amPOC [id number] 06:10:33 Test Item Value Reference Range Interpretation Comments Glucose POC (test 235 mg/dL 74-106 H POC Glucos e used on code = Glucose POC) critical ly ill patients is considered " off-label use" and has no t been cleared or appr zuly by the FDA. Altern ative testing methods should be considered i f the patient is crit ically ill. Blood [id number] 06:01:42No growth at 5 days.POC [id number] 22:16:26 Test Item Value Reference Range Interpretation Comments Glucose POC (test 212 mg/dL 74-106 H POC Glucos e used on code = Glucose POC) critical ly ill patients is considered " off-label use" and has no t been cleared or appr zuly by the FDA. Altern ative testing methods should be considered i f the patient is crit ically ill. POC [id number] 15:35:25 Test Item Value Reference Range Interpretation Comments Glucose POC (test 167 mg/dL 74-106 H POC Glucos e used on code = Glucose POC) critical ly ill patients is considered " off-label use" and has no t been cleared or appr zuly by the FDA. Altern ative testing methods should be considered i f the patient is crit ically ill. POC [id number] 11:00:02 Test Item Value Reference Range Interpretation Comments Glucose POC (test 159 mg/dL 74-106 H POC Glucos e used on code = Glucose POC) critical ly ill patients is considered " off-label use" and has no t been cleared or appr zuly by the FDA. Altern ative testing methods should be considered i f the patient is crit ically ill. XR Abdomen 2 Llejv2006-71-25 09:30:43Patient: JANIS PATTERSON Date/Time03/28/2020 08:55 CDTReason for [...] Errol, SamerSigned (Electronic Signature): 03/28/2020 9:30 amPOC [id number] 07:05:07 Test Item Value Reference Range Interpretation Comments Glucose POC (test 202 mg/dL 74-106 H POC Glucos e used on code = Glucose POC) critical ly ill patients is considered " off-label use" and has no t been cleared or appr zuly by the FDA. Altern ative testing methods should be considered i f the patient is crit ically ill. Bzvepwbemd9512-30-04 04:19:33 Test Item Value Reference Range Interpretation [...] = Decreased Normal A Plt Estimation) POC [id number] 03:59:30 Test Item Value Reference Range Interpretation Comments Glucose POC (test 210 mg/dL 74-106 H POC Glucos e used on code = Glucose POC) critical ly ill patients is considered " off-label use" and has no t been cleared or appr zuly by the FDA. Altern ative testing methods should be considered i f the patient is crit ically ill. Comprehensive Metabolic [id number] 03:56:15 Test Item Value Reference Range Interpretation [...] = AST) 42 IntlUnit/L 15-37 H Lipase [id number] 03:56:15 Test Item Value Reference Range Interpretation Comments Lipase Level (test code = 626 IntlUnit/L 73-393 H Lipase Level) Comprehensive Metabolic Mtces7759-26-43 03:56:15 Test Item Value Reference Range Interpretation [...] eGFR 56 mL/min/1.73 m2 N AA) Magnesium Ofzqv5342-56-78 03:56:15 Test Item Value Reference Range Interpretation Comments Magnesium Level (test code = 1.3 mg/dL 1.6-2.6 L Magnesium Level) Comprehensive Metabolic Gjilk7078-81-75 03:56:15 Test Item Value Reference Range Interpretation [...] m2 N eGFR Non-AA) Prothrombin Time and [id number] 03:49:01 Test Item Value Reference Range Interpretation Comments Prothrombin Time (test code = 17.1 seconds 9.2-12.0 H Prothrombin Time) INR (test code = INR) 1.7 ratio 0.9-1.2 H Partial Thromboplastin [id number] 03:49:01 Test Item Value Reference Range Interpretation Comments Partial Thromboplastin 48.4 seconds 24.0-35.0 H APTT Heparin Time (test code = Therapeuti c Range: Partial Thromboplastin 47.9- 80.4 seconds Time) Complete Blood Count with Twzqduequtjl1404-77-95 03:44:12 Test Item Value Reference Range Interpretation [...] code Smear N = Slide Review) Automated Gvbdosrbqpep7764-72-02 03:44:12 Test Item Value Reference Range Interpretation Comments Neutro Auto (test code = Neutro Auto) 64.6 % N Lymph Auto (test code = Lymph Auto) 21.7 % N Dewey Auto (test code = Dewey Auto) 10.0 % N Eos, Auto (test code = Eos, Auto) 2.8 % N Basophil Auto (test code = Basophil 0.9 % N Auto) Neutro Absolute (test code = Neutro 7.3 x10 2.7-7.3 Absolute) Lymph Absolute (test code = Lymph 2.4 x10 0.8-3.5 Absolute) Dewey Absolute (test code = Dewey 1.1 x10 0.3-0.9 H Absolute) Eos Absolute (test code = Eos 0.3 x10 0.0-0.3 Absolute) Baso Absolute (test code = Baso 0.1 x10 0.0-0.1 Absolute) POC Onjmtrv5128-55-15 00:10:36 Test Item Value Reference Range Interpretation [...] crit ically ill. Actin (Smooth Muscle) Antibody [id number] 17:12:1911 Negative 0 - 19 Weak positive 20 - 30 Moderate to strong positive >30 Actin Antibodies are found in 52-85% of patients with autoimmune hepatitis or chronic active hepatitis and in 22% of patients with primary biliary cirrhosis.Performed At: [facility] [id number] MD Ph:[phone] (M2) Antibody [id number] 17:12:19<20.0 Negative 0.0 - 20.0 Equivocal 20.1 - 24.9 Positive >24.9 Mitochondrial (M2) Antibodies are found in 90-96% ofpatients with primary biliary cirrhosis.Performed At: [facility] [id number] Sanjai MD Ph:[phone] Abdomen and Pelvis w/o Contrast 2020-03-27 16:09:24Patient: [...] Signature): 03/27/2020 4:09 pm Prothrombin Time and [id number] 13:27:24 Test Item Value Reference Range Interpretation Comments Prothrombin Time (test code = 16.7 seconds 9.2-12.0 H Prothrombin Time) INR (test code = INR) 1.6 ratio 0.9-1.2 H Sywsouxrkb5372-05-98 13:26:22 Test Item Value Reference Range Interpretation Comments RBC Morph (test code = RBC As Indicated Normal A Morph) Anisocyte (test code = 1+ A Anisocyte) Hypochromia (test code = 2+ A Hypochromia) Poik (test code = Poik) 1+ A Schistocytes (test code = 1+ A Schistocytes) Plt Estimation (test code = Plt Decreased Normal A Estimation) Complete Blood Count with Nngqsjnrkkan4181-23-78 13:24:14 Test Item Value Reference Range Interpretation [...] code = Slide Smear N Review) POC Ochjgoq0015-10-24 12:54:28 Test Item Value Reference Range Interpretation Comments Glucose POC (test 204 mg/dL 74-106 H POC Glucos e used on code = Glucose POC) critical ly ill patients is considered " off-label use" and has no t been cleared or appr zuly by the FDA. Altern ative testing methods should be considered i f the patient is crit ically ill. Automated Khnmzbennvle2131-87-87 12:39:37 Test Item Value Reference Range Interpretation Comments Neutro Auto (test code = Neutro Auto) 68.3 % N Lymph Auto (test code = Lymph Auto) 18.8 % N Dewey Auto (test code = Dewey Auto) 9.9 % N Eos, Auto (test code = Eos, Auto) 2.5 % N Basophil Auto (test code = Basophil 0.5 % N Auto) Neutro Absolute (test code = Neutro 7.9 x10 2.7-7.3 H Absolute) Lymph Absolute (test code = Lymph 2.2 x10 0.8-3.5 Absolute) Dewey Absolute (test code = Dewey 1.1 x10 0.3-0.9 H Absolute) Eos Absolute (test code = Eos 0.3 x10 0.0-0.3 Absolute) Baso Absolute (test code = Baso 0.1 x10 0.0-0.1 Absolute) Comprehensive Metabolic Lcstl2895-14-74 12:34:10 Test Item Value Reference Range Interpretation [...] AST) 42 IntlUnit/L 15-37 H Comprehensive Metabolic Varro5395-01-31 12:34:10 Test Item Value Reference Range Interpretation [...] eGFR 56 mL/min/1.73 m2 N AA) Lipase Uegxg9601-16-46 12:34:10 Test Item Value Reference Range Interpretation Comments Lipase Level (test code = 763 IntlUnit/L 73-393 H Lipase Level) Comprehensive Metabolic Krzsu6798-22-01 12:34:10 Test Item Value Reference Range Interpretation [...] = 46 mL/min/1.73 m2 N eGFR Non-AA) Vnxhwxi4182-11-56 12:34:09 Test Item Value Reference Range Interpretation Comments Amylase Level (test code = 122 IntlUnit/L 25-115 H Amylase Level) Basic Metabolic Owdxe8827-43-46 07:47:13 Test Item Value Reference Range Interpretation [...] Calcium 8.5 mg/dL 8.5-10.1 Level) Basic Metabolic Yplrx5274-41-15 07:47:13 Test Item Value Reference Range Interpretation [...] mL/min/1.73 m2 N eGFR Non-AA) Basic Metabolic Qrdxe3925-67-81 07:47:13 Test Item Value Reference Range Interpretation [...] 51 mL/min/1.73 m2 N eGFR Non-AA) POC Ydyrgsh1026-12-69 06:48:16 Test Item Value Reference Range Interpretation Comments Glucose POC (test 212 mg/dL 74-106 H POC Glucos e used on code = Glucose POC) critical ly ill patients is considered " off-label use" and has no t been cleared or appr zuly by the FDA. Altern ative testing methods should be considered i f the patient is crit ically ill. POC Tdscqln5903-06-53 20:59:44 Test Item Value Reference Range Interpretation Comments Glucose POC (test 197 mg/dL 74-106 H POC Glucos e used on code = Glucose POC) critical ly ill patients is considered " off-label use" and has no t been cleared or appr zuly by the FDA. Altern ative testing methods should be considered i f the patient is crit ically ill. POC Dvcdybl6527-07-84 17:11:26 Test Item Value Reference Range Interpretation Comments Glucose POC (test 204 mg/dL 74-106 H POC Glucos e used on code = Glucose POC) critical ly ill patients is considered " off-label use" and has no t been cleared or appr zuly by the FDA. Altern ative testing methods should be considered i f the patient is crit ically ill. Lipase Osfui5530-30-14 17:02:10 Test Item Value Reference Range Interpretation Comments Lipase Level (test code = 829 IntlUnit/L 73-393 H Lipase Level) Comprehensive Metabolic Bailp1209-15-53 17:02:09 Test Item Value Reference Range Interpretation [...] AST) 52 IntlUnit/L 15-37 H Comprehensive Metabolic Hrmfj6710-99-18 17:02:09 Test Item Value Reference Range Interpretation [...] 56 mL/min/1.73 m2 N AA) Comprehensive Metabolic Mstdh8430-08-30 17:02:09 Test Item Value Reference Range Interpretation [...] = 46 mL/min/1.73 m2 N eGFR Non-AA) Zapmkymmun3821-35-74 16:32:33 Test Item Value Reference Range Interpretation [...] (test code = 1+ A Stomatocytes) Automated Ierddhrhqwvg9098-60-40 16:16:43 Test Item Value Reference Range Interpretation Comments Neutro Auto (test code = Neutro Auto) 67.2 % N Lymph Auto (test code = Lymph Auto) 19.2 % N Dewey Auto (test code = Dewey Auto) 10.1 % N Eos, Auto (test code = Eos, Auto) 2.4 % N Basophil Auto (test code = Basophil 1.1 % N Auto) Neutro Absolute (test code = Neutro 8.7 x10 2.7-7.3 H Absolute) Lymph Absolute (test code = Lymph 2.5 x10 0.8-3.5 Absolute) Dewey Absolute (test code = Dewey 1.3 x10 0.3-0.9 H Absolute) Eos Absolute (test code = Eos 0.3 x10 0.0-0.3 Absolute) Baso Absolute (test code = Baso 0.1 x10 0.0-0.1 Absolute) Complete Blood Count with Jbecenrltzuw0203-92-51 16:16:42 Test Item Value Reference Range Interpretation [...] code = Slide Smear N Review) POC Xzlzmwm2168-96-14 12:16:31 Test Item Value Reference Range Interpretation Comments Glucose POC (test 244 mg/dL 74-106 H POC Glucos e used on code = Glucose POC) critical ly ill patients is considered " off-label use" and has no t been cleared or appr zuly by the FDA. Altern ative testing methods should be considered i f the patient is crit ically ill. Copper, Serum [id number] 10:08:54093Dodf test was developed and its performance characteristicsdetermined by [employer]. It has not beencleared orapproved by the Food and Drug Administration. Detection Limit = 5Performed At: [facility] [address] [place], [place] [id number] Sanjai MD Ph:[phone] Xmskniw0509-47-96 05:04:23 Test Item Value Reference Range Interpretation Comments Glucose POC (test 264 mg/dL 74-106 H POC Glucos e used on code = Glucose POC) critical ly ill patients is considered " off-label use" and has no t been cleared or appr zuly by the FDA. Altern ative testing methods should be considered i f the patient is crit ically ill. POC Dxppqgc5787-41-72 04:53:58 Test Item Value Reference Range Interpretation Comments Glucose POC (test 246 mg/dL 74-106 H POC Glucos e used on code = Glucose POC) critical ly ill patients is considered " off-label use" and has no t been cleared or appr zuly by the FDA. Altern ative testing methods should be considered i f the patient is crit ically ill. POC Nedvsqj8107-04-72 00:33:02 Test Item Value Reference Range Interpretation [...] crit ically ill. XR Abdomen KUB 1 [id number] 13:53:33Patient: JANIS PATTERSON Date/Time03/25/202013:45 CDTReason for ExamLine [...] Gustavo MSigned (Electronic Signature): 03/25/2020 1:53 pmPOC Gtpeozq7312-95-79 11:27:11 Test Item Value Reference Range Interpretation Comments Glucose POC (test 272 mg/dL 74-106 H POC Glucos e used on code = Glucose POC) critical ly ill patients is considered " off-label use" and has no t been cleared or appr zuly by the FDA. Altern ative testing methods should be considered i f the patient is crit ically ill. POC Xoplndl8547-74-23 05:14:19 Test Item Value Reference Range Interpretation Comments Glucose POC (test 289 mg/dL 74-106 H POC Glucos e used on code = Glucose POC) critical ly ill patients is considered " off-label use" and has no t been cleared or appr zuly by the FDA. Altern ative testing methods should be considered i f the patient is crit ically ill. POC [id number] 23:12:01 Test Item Value Reference Range Interpretation Comments Glucose POC (test 256 mg/dL 74-106 H POC Glucos e used on code = Glucose POC) critical ly ill patients is considered " off-label use" and has no t been cleared or appr zuly by the FDA. Altern ative testing methods should be considered i f the patient is crit ically ill. POC Pkddfea8464-26-14 16:43:04 Test Item Value Reference Range Interpretation Comments Glucose POC (test 288 mg/dL 74-106 H POC Glucos e used on code = Glucose POC) critical ly ill patients is considered " off-label use" and has no t been cleared or appr zuly by the FDA. Altern ative testing methods should be considered i f the patient is crit ically ill. POC [id number] 12:07:38 Test Item Value Reference Range Interpretation Comments Glucose POC (test 279 mg/dL 74-106 H POC Glucos e used on code = Glucose POC) critical ly ill patients is considered " off-label use" and has no t been cleared or appr zuly by the FDA. Altern ative testing methods should be considered i f the patient is crit ically ill. POC Ukzspwj9700-56-84 12:07:35 Test Item Value Reference Range Interpretation Comments Glucose POC (test 264 mg/dL 74-106 H POC Glucos e used on code = Glucose POC) critical ly ill patients is considered " off-label use" and has no t been cleared or appr zuly by the FDA. Altern ative testing methods should be considered i f the patient is crit ically ill. POC [id number] 12:07:33 Test Item Value Reference Range Interpretation Comments Glucose POC (test 255 mg/dL 74-106 H POC Glucos e used on code = Glucose POC) critical ly ill patients is considered " off-label use" and has no t been cleared or appr zuly by the FDA. Altern ative testing methods should be considered i f the patient is crit ically ill. Basic Metabolic [id number] 07:25:13 Test Item Value Reference Range Interpretation [...] Calcium 8.7 mg/dL 8.5-10.1 Level) Basic Metabolic [id number] 07:25:13 Test Item Value Reference Range Interpretation [...] mL/min/1.73 m2 N eGFR Non-AA) Basic Metabolic Hjgdm5920-35-31 07:25:13 Test Item Value Reference Range Interpretation [...] 42 mL/min/1.73 m2 N eGFR Non-AA) POC Ohsoved6533-09-03 18:31:46 Test Item Value Reference Range Interpretation Comments Glucose POC (test 259 mg/dL 74-106 H POC Glucos e used on code = Glucose POC) critical ly ill patients is considered " off-label use" and has no t been cleared or appr zuly by the FDA. Altern ative testing methods should be considered i f the patient is crit ically ill. POC [id number] 16:34:32 Test Item Value Reference Range Interpretation Comments Glucose POC (test 261 mg/dL 74-106 H POC Glucos e used on code = Glucose POC) critical ly ill patients is considered " off-label use" and has no t been cleared or appr zuly by the FDA. Altern ative testing methods should be considered i f the patient is crit ically ill. Jqueh-0-Hnigcjpqdui, Serum [id number] 15:09:40685Injwjotum At: JENN[facility] [address] [facility] [address] [place], [place] [id number] CN MD Ph:[phone] Comprehensive Metabolic Nzxdg3180-61-17 11:29:11 Test Item Value Reference Range Interpretation [...] = AST) 31 IntlUnit/L 15-37 Comprehensive Metabolic [id number] 11:29:11 Test Item Value Reference Range Interpretation [...] 47 mL/min/1.73 m2 N AA) Comprehensive Metabolic [id number] 11:29:11 Test Item Value Reference Range Interpretation [...] N eGFR Non-AA) Complete Blood Count with Ljiazkhonqch0132-35-75 10:47:41 Test Item Value Reference Range Interpretation [...] = Slide Review) GL_SET_SLIDE _REVIEW_A UTO Automated Bndbrqkqyarv0005-15-54 10:47:41 Test Item Value Reference Range Interpretation Comments Neutro Auto (test code = Neutro 74.9 % N Auto) Lymph Auto (test code = Lymph Auto) 14.8 % N Dewey Auto (test code = Dewey Auto) 7.2 % N Eos, Auto (test code = Eos, Auto) 2.9 % N Basophil Auto (test code = Basophil 0.2 % N Auto) Neutro Absolute (test code = Neutro 11.4 x10 2.7-7.3 H Absolute) Lymph Absolute (test code = Lymph 2.2 x10 0.8-3.5 Absolute) Dewey Absolute (test code = Dewey 1.1 x10 0.3-0.9 H Absolute) Eos Absolute (test code = Eos 0.4 x10 0.0-0.3 H Absolute) Baso Absolute (test code = Baso 0.0 x10 0.0-0.1 Absolute) Hepatitis Panel (4) [id number] 08:10:18 Test Item Value Reference Range Interpretation [...] HCV Nucl eic Acid Amplification t est ([id number]).Perfor med At: [facility] [address] [id number] Zeus Guzman MD Ph:[phone] POC Lcthcnb0876-09-11 07:29:43 Test Item Value Reference Range Interpretation Comments Glucose POC (test 262 mg/dL 74-106 H POC Glucos e used on code = Glucose POC) critical ly ill patients is considered " off-label use" and has no t been cleared or appr zuly by the FDA. Altern ative testing methods should be considered i f the patient is crit ically ill. AFP, Serum, Tumor Xbwond5691-19-41 03:12:553.1[employer] Electrochemiluminescence Immunoassay(ECLIA) Values obtained with different assay methods or kits cannotbe used interchangeably. Results cannot be interpreted asabsolute evidence of the presence or absence of malignantdisease. This test is not interpretable in females.Performed At: [facility] [address] [id number] Guzman MD Ph:[phone], Serum, Tumor Zjlaxo3485-21-30 03:12:553.1[employer] Electrochemiluminescence Immunoassay(ECLIA) Values obtained with different assay methods or kits cannotbe used interchangeably. Results cannot be interpreted asabsolute evidence of the presence or absence of malignantdisease. This test is not interpretable in females.Performed At: [facility] [address] [id number] Guzman MD Ph:[phone] Evtldzd8590-47-69 21:58:00 Test Item Value Reference Range Interpretation Comments Glucose POC (test 239 mg/dL 74-106 H POC Glucos e used on code = Glucose POC) critical ly ill patients is considered " off-label use" and has no t been cleared or appr zuly by the FDA. Altern ative testing methods should be considered i f the patient is crit ically ill. POC [id number] 18:19:59 Test Item Value Reference Range Interpretation Comments Glucose POC (test 228 mg/dL 74-106 H POC Glucos e used on code = Glucose POC) critical ly ill patients is considered " off-label use" and has no t been cleared or appr zuly by the FDA. Altern ative testing methods should be considered i f the patient is crit ically ill. POC [id number] 18:19:58 Test Item Value Reference Range Interpretation Comments Glucose POC (test 230 mg/dL 74-106 H POC Glucos e used on code = Glucose POC) critical ly ill patients is considered " off-label use" and has no t been cleared or appr zuly by the FDA. Altern ative testing methods should be considered i f the patient is crit ically ill. Blood Dybjbgg2655-13-76 18:01:51No growth at 5 days.US Abdomen Complete [...] (Electronic Signature): 03/22/2020 3:20 pmRed Blood Cells Omrskqcokqef6064-40-69 14:12:19 Test Item Value Reference Range Interpretation Comments # of Units (test code = 2 N # of Units) RBC Trn Reason (test High risk, even if N code = RBC Trn Reason) Hgb > 7 RBC Product Ready (test RBC Ready code = RBC Product Ready) [id number] 13:41:19 Test Item Value Reference Range Interpretation Comments Previous History (test code Yes Prev History = Previous History) BBID (test code = BBID) [id number] Methodology (test code = Ortho-Vision(OV) Methodology) Anti-A (test code = Anti-A) 4+ Anti-B (test code = Anti-B) 4+ Anti-D (test code = Anti-D) 4+ DCon (test code = DCon) 0 A1 (test code = A1) 0 B cells (test code = B 0 cells) ABORh (test code = ABORh) AB POS 2C [id number] 13:41:19 Test Item Value Reference Range Interpretation Comments Methodology (test code = Ortho-Vision(OV) Methodology) SC1 (test code = SC1) 0 SC2 (test code = SC2) 0 Antibody Screen (2C) (test Negative ABSC code = Antibody Screen (2C)) XR Abdomen KUB 1 [id number] 13:33:47Patient: JANIS PATTERSON Date/Time03/22/202013:17 CDTReason for ExamAbdominal distentionReportAbdomen single viewHISTORY: Abdominal distentionCOMPARISON: 03/15/2020TECHNIQUE: Supine views providedFINDINGS: Examination limited on the basis of bodyhabitus. Included lung goodrich are clear. Decreasing bowel gas noted. No pathologic calcification. Osseous structures unchanged.IMPRESSION: Nonobstructive bowel gas pattern. Final Dictated by: MD Ramiro, Jesúsctalexandra DT/TM: 03/22/2020 1:31 pmSigned by: MD Ramiro, Huagndebby (Electronic Signature): 03/22/2020 1:33 pmIron [id number] 13:27:16 Test Item Value Reference Range Interpretation Comments Iron (test code = Iron) 23 mcg/dL 50-170 L Kkzewvlt4078-20-11 13:27:16 Test Item Value Reference Range Interpretation Comments Ferritin Level (test code = 2407.0 ng/mL 8.0-388.0 H Ferritin Level) Ammonia [id number] 13:10:13 Test Item Value Reference Range Interpretation Comments Ammonia Level (test code = Ammonia 10 mmol/L 19-54 L Level) Prothrombin Time and [id number] 12:53:08 Test Item Value Reference Range Interpretation Comments Prothrombin Time (test code = 14.2 seconds 9.2-12.0 H Prothrombin Time) INR (test code = INR) 1.4 ratio 0.9-1.2 H Partial Thromboplastin [id number] 12:53:08 Test Item Value Reference Range Interpretation Comments Partial Thromboplastin 50.9 seconds 24.0-35.0 H APTT Heparin Time (test code = Therapeuti c Range: Partial Thromboplastin 47.9- 80.4 seconds Time) Automated Ahnyilcwbfyn1479-36-35 10:07:27 Test Item Value Reference Range Interpretation Comments Neutro Auto (test code = Neutro 77.6 % N Auto) Lymph Auto (test code = Lymph Auto) 12.1 % N Dewey Auto (test code = Dewey Auto) 7.4 % N Eos, Auto (test code = Eos, Auto) 2.6 % N Basophil Auto (test code = Basophil 0.3 % N Auto) Neutro Absolute (test code = Neutro 13.7 x10 2.7-7.3 H Absolute) Lymph Absolute (test code = Lymph 2.1 x10 0.8-3.5 Absolute) Dewey Absolute (test code = Dewey 1.3 x10 0.3-0.9 H Absolute) Eos Absolute (test code = Eos 0.5 x10 0.0-0.3 H Absolute) Baso Absolute (test code = Baso 0.1 x10 0.0-0.1 Absolute) Complete Blood Count with Qtiskvsmcnea4693-87-21 10:07:26 Test Item Value Reference Range Interpretation [...] = Slide Review) GL_SET_SLIDE _REVIEW_A UTO POC Yrlcodk1150-44-29 09:42:39 Test Item Value Reference Range Interpretation Comments Glucose POC (test 251 mg/dL 74-106 H POC Glucos e used on code = Glucose POC) critical ly ill patients is considered " off-label use" and has no t been cleared or appr zuly by the FDA. Altern ative testing methods should be considered i f the patient is crit ically ill. Comprehensive Metabolic Kjwvd9427-89-86 09:41:09 Test Item Value Reference Range Interpretation [...] = AST) 26 IntlUnit/L 15-37 Comprehensive Metabolic Lgegu7968-12-63 09:41:09 Test Item Value Reference Range Interpretation [...] 43 mL/min/1.73 m2 N AA) Comprehensive Metabolic [id number] 09:41:09 Test Item Value Reference Range Interpretation [...] 36 mL/min/1.73 m2 N eGFR Non-AA) POC [id number] 06:29:42 Test Item Value Reference Range Interpretation Comments Glucose POC (test 212 mg/dL 74-106 H POC Glucos e used on code = Glucose POC) critical ly ill patients is considered " off-label use" and has no t been cleared or appr zuly by the FDA. Altern ative testing methods should be considered i f the patient is crit ically ill. POC [id number] 18:28:55 Test Item Value Reference Range Interpretation [...] crit ically ill. Urinalysis with Culture, if wlgwabtbw7561-71-16 17:39:47 Test Item Value Reference Range Interpretation [...] UA Micro Ind?) rule GL_SET_UA_MICRO _IND Urinalysis Tsdxnumkudd6610-61-50 17:39:47 Test Item Value Reference Range Interpretation [...] /LPF 1-6 Cast) XR Chest 1 View Zzwgpjj2765-58-46 14:48:59Patient: JANIS PATTERSON Date/Time03/21/202014:30 CDTReason for Examfever, [...] Ramiro, Huagned (Electronic Signature): 03/21/2020 2:48 pmPOC Dcjvzvf2332-12-07 11:48:05 Test Item Value Reference Range Interpretation Comments Glucose POC (test 261 mg/dL 74-106 H POC Glucos e used on code = Glucose POC) critical ly ill patients is considered " off-label use" and has no t been cleared or appr zuly by the FDA. Altern ative testing methods should be considered i f the patient is crit ically ill. Basic Metabolic [id number] 09:58:13 Test Item Value Reference Range Interpretation [...] 8.1 mg/dL 8.5-10.1 L Level) Basic Metabolic [id number] 09:58:13 Test Item Value Reference Range Interpretation [...] 40 mL/min/1.73 m2 N AA) Basic Metabolic Umaja3856-54-60 09:58:13 Test Item Value Reference Range Interpretation [...] N eGFR Non-AA) Complete Blood Count with Izesgywrewng7921-49-13 09:37:12 Test Item Value Reference Range Interpretation [...] = Slide Review) GL_SET_SLIDE _REVIEW_A UTO Automated Dgrudsymntxk1382-71-45 09:37:12 Test Item Value Reference Range Interpretation Comments Neutro Auto (test code = Neutro 70.4 % N Auto) Lymph Auto (test code = Lymph Auto) 18.0 % N Dewey Auto (test code = Dewey Auto) 8.7 % N Eos, Auto (test code = Eos, Auto) 2.5 % N Basophil Auto (test code = Basophil 0.4 % N Auto) Neutro Absolute (test code = Neutro 11.3 x10 2.7-7.3 H Absolute) Lymph Absolute (test code = Lymph 2.9 x10 0.8-3.5 Absolute) Dewey Absolute (test code = Dewey 1.4 x10 0.3-0.9 H Absolute) Eos Absolute (test code = Eos 0.4 x10 0.0-0.3 H Absolute) Baso Absolute (test code = Baso 0.1 x10 0.0-0.1 Absolute) POC Yftlshc6037-29-06 06:40:31 Test Item Value Reference Range Interpretation Comments Glucose POC (test 296 mg/dL 74-106 H POC Glucos e used on code = Glucose POC) critical ly ill patients is considered " off-label use" and has no t been cleared or appr zuly by the FDA. Altern ative testing methods should be considered i f the patient is crit ically ill. POC [id number] 21:40:20 Test Item Value Reference Range Interpretation Comments Glucose POC (test 226 mg/dL 74-106 H POC Glucos e used on code = Glucose POC) critical ly ill patients is considered " off-label use" and has no t been cleared or appr zuly by the FDA. Altern ative testing methods should be considered i f the patient is crit ically ill. POC [id number] 20:05:47 Test Item Value Reference Range Interpretation Comments Glucose POC (test 265 mg/dL 74-106 H POC Glucos e used on code = Glucose POC) critical ly ill patients is considered " off-label use" and has no t been cleared or appr zuly by the FDA. Altern ative testing methods should be considered i f the patient is crit ically ill. POC [id number] 20:05:46 Test Item Value Reference Range Interpretation Comments Glucose POC (test 250 mg/dL 74-106 H POC Glucos e used on code = Glucose POC) critical ly ill patients is considered " off-label use" and has no t been cleared or appr zuly by the FDA. Altern ative testing methods should be considered i f the patient is crit ically ill. POC [id number] 06:00:28 Test Item Value Reference Range Interpretation Comments Glucose POC (test 242 mg/dL 74-106 H POC Glucos e used on code = Glucose POC) critical ly ill patients is considered " off-label use" and has no t been cleared or appr zuly by the FDA. Altern ative testing methods should be considered i f the patient is crit ically ill. POC [id number] 06:00:23 Test Item Value Reference Range Interpretation Comments Glucose POC (test 200 mg/dL 74-106 H POC Glucos e used on code = Glucose POC) critical ly ill patients is considered " off-label use" and has no t been cleared or appr zuly by the FDA. Altern ative testing methods should be considered i f the patient is crit ically ill. POC [id number] 06:00:20 Test Item Value Reference Range Interpretation Comments Glucose POC (test 203 mg/dL 74-106 H POC Glucos e used on code = Glucose POC) critical ly ill patients is considered " off-label use" and has no t been cleared or appr zuly by the FDA. Altern ative testing methods should be considered i f the patient is crit ically ill. POC [id number] 16:06:06 Test Item Value Reference Range Interpretation Comments Glucose POC (test 204 mg/dL 74-106 H POC Glucos e used on code = Glucose POC) critical ly ill patients is considered " off-label use" and has no t been cleared or appr zuly by the FDA. Altern ative testing methods should be considered i f the patient is crit ically ill. CT Brain/Head w/o [id number] 14:51:33Patient: JANIS PATTERSON Date/Time03/19/202014:20 CDTReason for ExamCVA-repeat [...] ASigned (Electronic Signature): 03/19/2020 2:51 pmRenal Function [id number] 05:30:05 Test Item Value Reference Range Interpretation [...] 2.7 mg/dL 2.5-4.9 Phosphorus Level) Renal Function [id number] 05:30:05 Test Item Value Reference Range Interpretation [...] mg/dL 2.5-4.9 = Phosphorus Level) Renal Function [id number] 05:30:05 Test Item Value Reference Range Interpretation [...] = Phosphorus Level) Complete Blood Count with Erjwsinanywl3764-18-26 05:26:56 Test Item Value Reference Range Interpretation [...] = Slide Review) GL_SET_SLIDE _REVIEW_A UTO Automated Jshshnvexpti4923-30-38 05:26:56 Test Item Value Reference Range Interpretation Comments Neutro Auto (test code = Neutro Auto) 67.3 % N Lymph Auto (test code = Lymph Auto) 17.3 % N Dewey Auto (test code = Dewey Auto) 11.6 % N Eos, Auto (test code = Eos, Auto) 3.5 % N Basophil Auto (test code = Basophil 0.3 % N Auto) Neutro Absolute (test code = Neutro 8.8 x10 2.7-7.3 H Absolute) Lymph Absolute (test code = Lymph 2.3 x10 0.8-3.5 Absolute) Dewey Absolute (test code = Dewey 1.5 x10 0.3-0.9 H Absolute) Eos Absolute (test code = Eos 0.5 x10 0.0-0.3 H Absolute) Baso Absolute (test code = Baso 0.0 x10 0.0-0.1 Absolute) POC [id number] 23:46:57 Test Item Value Reference Range Interpretation Comments Glucose POC (test 181 mg/dL 74-106 H POC Glucos e used on code = Glucose POC) critical ly ill patients is considered " off-label use" and has no t been cleared or appr zuly by the FDA. Altern ative testing methods should be considered i f the patient is crit ically ill. POC [id number] 16:00:47 Test Item Value Reference Range Interpretation Comments Glucose POC (test 169 mg/dL 74-106 H POC Glucos e used on code = Glucose POC) critical ly ill patients is considered " off-label use" and has no t been cleared or appr zuly by the FDA. Altern ative testing methods should be considered i f the patient is crit ically ill. POC [id number] 11:19:25 Test Item Value Reference Range Interpretation Comments Glucose POC (test 166 mg/dL 74-106 H POC Glucos e used on code = Glucose POC) critical ly ill patients is considered " off-label use" and has no t been cleared or appr zuly by the FDA. Altern ative testing methods should be considered i f the patient is crit ically ill. Phosphorus [id number] 06:13:20 Test Item Value Reference Range Interpretation Comments Phosphorus Level (test code = 3.4 mg/dL 2.5-4.9 Phosphorus Level) Comprehensive Metabolic [id number] 06:13:19 Test Item Value Reference Range Interpretation [...] 23 mL/min/1.73 m2 N AA) Comprehensive Metabolic [id number] 06:13:19 Test Item Value Reference Range Interpretation [...] mL/min/1.73 m2 N eGFR Non-AA) Comprehensive Metabolic [id number] 06:13:19 Test Item Value Reference Range Interpretation [...] 19 mL/min/1.73 m2 N eGFR Non-AA) POC [id number] 06:01:01 Test Item Value Reference Range Interpretation Comments Glucose POC (test 85 mg/dL 74-106 POC Glucos e used on code = Glucose POC) critical ly ill patients is considered " off-label use" and has no t been cleared or appr zuly by the FDA. Altern ative testing methods should be considered i f the patient is crit ically ill. POC [id number] 05:28:40 Test Item Value Reference Range Interpretation Comments Glucose POC (test 88 mg/dL 74-106 POC Glucos e used on code = Glucose POC) critical ly ill patients is considered " off-label use" and has no t been cleared or appr zuly by the FDA. Altern ative testing methods should be considered i f the patient is crit ically ill. POC [id number] 05:28:39 Test Item Value Reference Range Interpretation Comments Glucose POC (test 103 mg/dL 74-106 POC Glucos e used on code = Glucose POC) critical ly ill patients is considered " off-label use" and has no t been cleared or appr zuly by the FDA. Altern ative testing methods should be considered i f the patient is crit ically ill. Complete Blood Count with [id number] 05:18:17 Test Item Value Reference Range Interpretation [...] = Slide Review) GL_SET_SLIDE _REVIEW_A UTO Automated Lbvbbhlvxssj0737-20-03 05:18:17 Test Item Value Reference Range Interpretation Comments Neutro Auto (test code = Neutro Auto) 65.6 % N Lymph Auto (test code = Lymph Auto) 18.1 % N Dewey Auto (test code = Dewey Auto) 13.5 % N Eos, Auto (test code = Eos, Auto) 2.4 % N Basophil Auto (test code = Basophil 0.4 % N Auto) Neutro Absolute (test code = Neutro 9.1 x10 2.7-7.3 H Absolute) Lymph Absolute (test code = Lymph 2.5 x10 0.8-3.5 Absolute) Dewey Absolute (test code = Dewey 1.9 x10 0.3-0.9 H Absolute) Eos Absolute (test code = Eos 0.3 x10 0.0-0.3 Absolute) Baso Absolute (test code = Baso 0.1 x10 0.0-0.1 Absolute) CT Brain/Head w/o [id number] 12:26:51Patient: JANIS PATTERSON Date/Time03/17/202012:10 CDTReason for ExamAltered [...] Ramiro, Huagndebby (Electronic Signature): 03/17/2020 12:26 pmManual [id number] 04:05:02 Test Item Value Reference Range Interpretation [...] = Lymph 4.3 0.8-3.5 H Man Abs) Dewey Man Abs (test code = Dewey 1.4 0.3-0.9 H Man Abs) Eos Man [...] = Plt Normal Normal Estimation) Basic Metabolic [id number] 04:00:24 Test Item Value Reference Range Interpretation [...] Calcium 8.6 mg/dL 8.5-10.1 Level) Basic Metabolic [id number] 04:00:24 Test Item Value Reference Range Interpretation [...] 17 mL/min/1.73 m2 N AA) Basic Metabolic [id number] 04:00:24 Test Item Value Reference Range Interpretation [...] N eGFR Non-AA) Complete Blood Count with Prwrasxknyem7578-85-06 03:39:33 Test Item Value Reference Range Interpretation [...] code = Slide Manual N Review) POC [id number] 20:54:43 Test Item Value Reference Range Interpretation Comments Glucose POC (test 92 mg/dL 74-106 POC Glucos e used on code = Glucose POC) critical ly ill patients is considered " off-label use" and has no t been cleared or appr zuly by the FDA. Altern ative testing methods should be considered i f the patient is crit ically ill. POC [id number] 18:24:58 Test Item Value Reference Range Interpretation Comments Glucose POC (test 107 mg/dL 74-106 H POC Glucos e used on code = Glucose POC) critical ly ill patients is considered " off-label use" and has no t been cleared or appr zuly by the FDA. Altern ative testing methods should be considered i f the patient is crit ically ill. POC [id number] 14:58:35 Test Item Value Reference Range Interpretation Comments Glucose POC (test 93 mg/dL 74-106 POC Glucos e used on code = Glucose POC) critical ly ill patients is considered " off-label use" and has no t been cleared or appr zuly by the FDA. Altern ative testing methods should be considered i f the patient is crit ically ill. POC [id number] 10:27:27 Test Item Value Reference Range Interpretation Comments Glucose POC (test 113 mg/dL 74-106 H POC Glucos e used on code = Glucose POC) critical ly ill patients is considered " off-label use" and has no t been cleared or appr zuly by the FDA. Altern ative testing methods should be considered i f the patient is crit ically ill. Basic Metabolic [id number] 05:21:17 Test Item Value Reference Range Interpretation [...] Calcium 8.6 mg/dL 8.5-10.1 Level) Basic Metabolic [id number] 05:21:17 Test Item Value Reference Range Interpretation [...] 13 mL/min/1.73 m2 N AA) Basic Metabolic [id number] 05:21:17 Test Item Value Reference Range Interpretation [...] N eGFR Non-AA) Complete Blood Count with Weefbulynnkb2441-23-75 04:59:06 Test Item Value Reference Range Interpretation [...] = Slide Review) GL_SET_SLIDE _REVIEW_A UTO Automated [id number] 04:59:06 Test Item Value Reference Range Interpretation Comments Neutro Auto (test code = Neutro Auto) 63.4 % N Lymph Auto (test code = Lymph Auto) 18.4 % N Dewey Auto (test code = Dewey Auto) 12.2 % N Eos, Auto (test code = Eos, Auto) 5.5 % N Basophil Auto (test code = Basophil 0.5 % N Auto) Neutro Absolute (test code = Neutro 7.6 x10 2.7-7.3 H Absolute) Lymph Absolute (test code = Lymph 2.2 x10 0.8-3.5 Absolute) Dewey Absolute (test code = Dewey 1.5 x10 0.3-0.9 H Absolute) Eos Absolute (test code = Eos 0.7 x10 0.0-0.3 H Absolute) Baso Absolute (test code = Baso 0.1 x10 0.0-0.1 Absolute) POC [id number] 02:35:32 Test Item Value Reference Range Interpretation Comments Glucose POC (test 125 mg/dL 74-106 H POC Glucos e used on code = Glucose POC) critical ly ill patients is considered " off-label use" and has no t been cleared or appr zuly by the FDA. Altern ative testing methods should be considered i f the patient is crit ically ill. POC [id number] 18:41:51 Test Item Value Reference Range Interpretation Comments Glucose POC (test 126 mg/dL 74-106 H POC Glucos e used on code = Glucose POC) critical ly ill patients is considered " off-label use" and has no t been cleared or appr zuly by the FDA. Altern ative testing methods should be considered i f the patient is crit ically ill. POC [id number] 12:05:47 Test Item Value Reference Range Interpretation Comments Glucose POC (test 126 mg/dL 74-106 H POC Glucos e used on code = Glucose POC) critical ly ill patients is considered " off-label use" and has no t been cleared or appr zuly by the FDA. Altern ative testing methods should be considered i f the patient is crit ically ill. XR Abdomen 2 [id number] 07:26:36Patient: JANIS PATTERSON Date/Time03/15/2020 06:30 CDTReason for [...] Craig ASigned (Electronic Signature): 03/15/2020 7:26 amPOC Bqsfsth2413-37-07 06:35:09 Test Item Value Reference Range Interpretation Comments Glucose POC (test 126 mg/dL 74-106 H POC Glucos e used on code = Glucose POC) critical ly ill patients is considered " off-label use" and has no t been cleared or appr zuly by the FDA. Altern ative testing methods should be considered i f the patient is crit ically ill. Comprehensive Metabolic [id number] 06:02:17 Test Item Value Reference Range Interpretation [...] mL/min/1.73 m2 N eGFR Non-AA) Comprehensive Metabolic [id number] 06:02:17 Test Item Value Reference Range Interpretation [...] mL/min/1.73 m2 N eGFR Non-AA) Comprehensive Metabolic [id number] 06:02:17 Test Item Value Reference Range Interpretation [...] N eGFR Non-AA) Complete Blood Count with [id number] 04:35:24 Test Item Value Reference Range Interpretation [...] = Slide Review) GL_SET_SLIDE _REVIEW_A UTO Automated Fevtfwkgsqzs3471-21-27 04:35:24 Test Item Value Reference Range Interpretation Comments Neutro Auto (test code = Neutro Auto) 76.2 % N Lymph Auto (test code = Lymph Auto) 11.5 % N Dewey Auto (test code = Dewey Auto) 9.1 % N Eos, Auto (test code = Eos, Auto) 2.7 % N Basophil Auto (test code = Basophil 0.5 % N Auto) Neutro Absolute (test code = Neutro 9.8 x10 2.7-7.3 H Absolute) Lymph Absolute (test code = Lymph 1.5 x10 0.8-3.5 Absolute) Dewey Absolute (test code = Dewey 1.2 x10 0.3-0.9 H Absolute) Eos Absolute (test code = Eos 0.3 x10 0.0-0.3 Absolute) Baso Absolute (test code = Baso 0.1 x10 0.0-0.1 Absolute) POC [id number] 04:17:11 Test Item Value Reference Range Interpretation Comments Glucose POC (test 113 mg/dL 74-106 H POC Glucos e used on code = Glucose POC) critical ly ill patients is considered " off-label use" and has no t been cleared or appr zuly by the FDA. Altern ative testing methods should be considered i f the patient is crit ically ill. POC [id number] 17:07:50 Test Item Value Reference Range Interpretation Comments Glucose POC (test 103 mg/dL 74-106 POC Glucos e used on code = Glucose POC) critical ly ill patients is considered " off-label use" and has no t been cleared or appr zuly by the FDA. Altern ative testing methods should be considered i f the patient is crit ically ill. POC [id number] 17:07:39 Test Item Value Reference Range Interpretation [...] crit ically ill. XR Chest 1 View [id number] 15:46:40Patient: JANIS PATTERSON Date/Time03/14/2020 15:19 CDTReason for [...] (Electronic Signature): 03/14/2020 3:46 pmXR Abdomen 2 Kmjhw3967-19-06 07:34:40Patient: JANIS PATTERSON Date/Time03/14/2020 06:01 CDTReason for [...] Craig ASigned (Electronic Signature): 03/14/2020 7:34 amPOC [id number] 05:01:53 Test Item Value Reference Range Interpretation Comments Glucose POC (test 126 mg/dL 74-106 H POC Glucos e used on code = Glucose POC) critical ly ill patients is considered " off-label use" and has no t been cleared or appr zuly by the FDA. Altern ative testing methods should be considered i f the patient is crit ically ill. Comprehensive Metabolic [id number] 04:22:14 Test Item Value Reference Range Interpretation [...] code = AST) 32 IntlUnit/L 15-37 Lipase Uhfuh1226-02-65 04:22:14 Test Item Value Reference Range Interpretation Comments Lipase Level (test code = 167 IntlUnit/L 73-393 Lipase Level) Comprehensive Metabolic [id number] 04:22:14 Test Item Value Reference Range Interpretation [...] 11 mL/min/1.73 m2 N AA) Comprehensive Metabolic [id number] 04:22:14 Test Item Value Reference Range Interpretation [...] N eGFR Non-AA) Complete Blood Count with Qvopmusubtcz1402-54-34 04:00:46 Test Item Value Reference Range Interpretation [...] = Slide Review) GL_SET_SLIDE _REVIEW_A UTO Automated [id number] 04:00:46 Test Item Value Reference Range Interpretation Comments Neutro Auto (test code = Neutro 75.2 % N Auto) Lymph Auto (test code = Lymph Auto) 13.8 % N Dewey Auto (test code = Dewey Auto) 7.6 % N Eos, Auto (test code = Eos, Auto) 3.1 % N Basophil Auto (test code = Basophil 0.3 % N Auto) Neutro Absolute (test code = Neutro 11.3 x10 2.7-7.3 H Absolute) Lymph Absolute (test code = Lymph 2.1 x10 0.8-3.5 Absolute) Dewey Absolute (test code = Dewey 1.2 x10 0.3-0.9 H Absolute) Eos Absolute (test code = Eos 0.5 x10 0.0-0.3 H Absolute) Baso Absolute (test code = Baso 0.0 x10 0.0-0.1 Absolute) POC [id number] 21:27:38 Test Item Value Reference Range Interpretation Comments Glucose POC (test 176 mg/dL 74-106 H POC Glucos e used on code = Glucose POC) critical ly ill patients is considered " off-label use" and has no t been cleared or appr zuly by the FDA. Altern ative testing methods should be considered i f the patient is crit ically ill. POC [id number] 21:27:31 Test Item Value Reference Range Interpretation Comments Glucose POC (test 141 mg/dL 74-106 H POC Glucos e used on code = Glucose POC) critical ly ill patients is considered " off-label use" and has no t been cleared or appr zuly by the FDA. Altern ative testing methods should be considered i f the patient is crit ically ill. POC [id number] 20:03:58 Test Item Value Reference Range Interpretation Comments Glucose POC (test 130 mg/dL 74-106 H POC Glucos e used on code = Glucose POC) critical ly ill patients is considered " off-label use" and has no t been cleared or appr zuly by the FDA. Altern ative testing methods should be considered i f the patient is crit ically ill. Red Blood Cells [id number] 05:08:02 Test Item Value Reference Range Interpretation Comments # of Units (test code = 2 N # of Units) RBC Trn Reason (test High risk, even if N code = RBC Trn Reason) Hgb > 7 RBC Product Ready (test RBC Ready code = RBC Product Ready) Automated [id number] 04:40:58 Test Item Value Reference Range Interpretation Comments Neutro Auto (test code = Neutro 75.6 % N Auto) Lymph Auto (test code = Lymph Auto) 15.7 % N Dewey Auto (test code = Dewey Auto) 7.2 % N Eos, Auto (test code = Eos, Auto) 1.1 % N Basophil Auto (test code = Basophil 0.4 % N Auto) Neutro Absolute (test code = Neutro 12.3 x10 2.7-7.3 H Absolute) Lymph Absolute (test code = Lymph 2.6 x10 0.8-3.5 Absolute) Dewey Absolute (test code = Dewey 1.2 x10 0.3-0.9 H Absolute) Eos Absolute (test code = Eos 0.2 x10 0.0-0.3 Absolute) Baso Absolute (test code = Baso 0.1 x10 0.0-0.1 Absolute) Complete Blood Count with [id number] 04:40:57 Test Item Value Reference Range Interpretation [...] Slide Review) GL_SET_SLIDE _REVIEW_A UTO Basic Metabolic [id number] 04:37:09 Test Item Value Reference Range Interpretation [...] 7.4 mg/dL 8.5-10.1 L Level) Basic Metabolic [id number] 04:37:09 Test Item Value Reference Range Interpretation [...] 13 mL/min/1.73 m2 N AA) Basic Metabolic [id number] 04:37:09 Test Item Value Reference Range Interpretation [...] 11 mL/min/1.73 m2 N eGFR Non-AA) POC [id number] 20:05:34 Test Item Value Reference Range Interpretation Comments Glucose POC (test 176 mg/dL 74-106 H POC Glucos e used on code = Glucose POC) critical ly ill patients is considered " off-label use" and has no t been cleared or appr zuly by the FDA. Altern ative testing methods should be considered i f the patient is crit ically ill. POC [id number] 20:05:31 Test Item Value Reference Range Interpretation Comments Glucose POC (test 196 mg/dL 74-106 H POC Glucos e used on code = Glucose POC) critical ly ill patients is considered " off-label use" and has no t been cleared or appr zuly by the FDA. Altern ative testing methods should be considered i f the patient is crit ically ill. POC [id number] 14:07:30 Test Item Value Reference Range Interpretation Comments Glucose POC (test 214 mg/dL 74-106 H POC Glucos e used on code = Glucose POC) critical ly ill patients is considered " off-label use" and has no t been cleared or appr zuly by the FDA. Altern ative testing methods should be considered i f the patient is crit ically ill. Comprehensive Metabolic [id number] 13:32:29 Test Item Value Reference Range Interpretation [...] = AST) 30 IntlUnit/L 15-37 Comprehensive Metabolic [id number] 13:32:29 Test Item Value Reference Range Interpretation [...] code = eGFR Non-AA) m2 Comprehensive Metabolic [id number] 13:32:29 Test Item Value Reference Range Interpretation [...] eGFR Non-AA) m2 Complete Blood Count with [id number] 13:08:12 Test Item Value Reference Range Interpretation [...] = Slide Review) GL_SET_SLIDE _REVIEW_A UTO Automated [id number] 13:08:12 Test Item Value Reference Range Interpretation Comments Neutro Auto (test code = Neutro 80.7 % N Auto) Lymph Auto (test code = Lymph Auto) 11.4 % N Dewey Auto (test code = Dewey Auto) 6.9 % N Eos, Auto (test code = Eos, Auto) 0.5 % N Basophil Auto (test code = Basophil 0.5 % N Auto) Neutro Absolute (test code = Neutro 13.5 x10 2.7-7.3 H Absolute) Lymph Absolute (test code = Lymph 1.9 x10 0.8-3.5 Absolute) Dewey Absolute (test code = Dewey 1.2 x10 0.3-0.9 H Absolute) Eos Absolute (test code = Eos 0.1 x10 0.0-0.3 Absolute) Baso Absolute (test code = Baso 0.1 x10 0.0-0.1 Absolute) POC [id number] 05:48:53 Test Item Value Reference Range Interpretation Comments Glucose POC (test 174 mg/dL 74-106 H POC Glucos e used on code = Glucose POC) critical ly ill patients is considered " off-label use" and has no t been cleared or appr zuly by the FDA. Altern ative testing methods should be considered i f the patient is crit ically ill. Red Blood Cells [id number] 00:56:23 Test Item Value Reference Range Interpretation Comments # of Units (test code = 2 N # of Units) RBC Trn Reason (test Other (please N code = RBC Trn Reason) specify) RBC Product Ready (test RBC Ready code = RBC Product Ready) [id number] 23:05:30 Test Item Value Reference Range Interpretation Comments Previous History (test code Yes Prev History = Previous History) BBID (test code = BBID) [id number] Methodology (test code = Ortho-Vision(OV) Methodology) Anti-A (test code = Anti-A) 4+ Anti-B (test code = Anti-B) 4+ Anti-D (test code = Anti-D) 4+ DCon (test code = DCon) 0 A1 (test code = A1) 0 B cells (test code = B 0 cells) ABORh (test code = ABORh) AB POS 2C [id number] 23:05:30 Test Item Value Reference Range Interpretation Comments Methodology (test code = Ortho-Vision(OV) Methodology) SC1 (test code = SC1) 0 SC2 (test code = SC2) 0 Antibody Screen (2C) (test Negative ABSC code = Antibody Screen (2C)) Basic Metabolic [id number] 22:42:20 Test Item Value Reference Range Interpretation [...] 7.7 mg/dL 8.5-10.1 L Level) Basic Metabolic [id number] 22:42:20 Test Item Value Reference Range Interpretation [...] 19 mL/min/1.73 m2 N AA) Basic Metabolic [id number] 22:42:20 Test Item Value Reference Range Interpretation [...] N eGFR Non-AA) Complete Blood Count with [id number] 22:23:44 Test Item Value Reference Range Interpretation [...] = Slide Review) GL_SET_SLIDE _REVIEW_A UTO Automated [id number] 22:23:44 Test Item Value Reference Range Interpretation Comments Neutro Auto (test code = Neutro Auto) 75.1 % N Lymph Auto (test code = Lymph Auto) 15.7 % N Dewey Auto (test code = Dewey Auto) 8.8 % N Eos, Auto (test code = Eos, Auto) 0.1 % N Basophil Auto (test code = Basophil 0.3 % N Auto) Neutro Absolute (test code = Neutro 9.4 x10 2.7-7.3 H Absolute) Lymph Absolute (test code = Lymph 2.0 x10 0.8-3.5 Absolute) Dewey Absolute (test code = Dewey 1.1 x10 0.3-0.9 H Absolute) Eos Absolute (test code = Eos 0.0 x10 0.0-0.3 Absolute) Baso Absolute (test code = Baso 0.0 x10 0.0-0.1 Absolute) POC [id number] 21:25:30 Test Item Value Reference Range Interpretation Comments Glucose POC (test 283 mg/dL 74-106 H POC Glucos e used on code = Glucose POC) critical ly ill patients is considered " off-label use" and has no t been cleared or appr zuly by the FDA. Altern ative testing methods should be considered i f the patient is crit ically ill. POC [id number] 16:33:28 Test Item Value Reference Range Interpretation Comments Glucose POC (test 267 mg/dL 74-106 H POC Glucos e used on code = Glucose POC) critical ly ill patients is considered " off-label use" and has no t been cleared or appr zuly by the FDA. Altern ative testing methods should be considered i f the patient is crit ically ill. Basic Metabolic Lsktr8305-12-24 14:17:33 Test Item Value Reference Range Interpretation Comments Sodium Level (test 135 mmol/L 136-145 L code = Sodium Level) Potassium Level (test 6.1 mmol/L 3.5-5.1 [facility] = Potassium 03/11/2020 1 4:17:22 [...] 8.5-10.1 code = Calcium Level) Basic Metabolic Egsls2023-99-67 14:17:33 Test Item Value Reference Range Interpretation [...] mL/min/1.73 N eGFR AA) m2 Basic Metabolic [id number] 14:17:33 Test Item Value Reference Range Interpretation [...] eGFR Non-AA) m2 Complete Blood Count with Jtwahgmsmamq3151-24-92 13:55:20 Test Item Value Reference Range Interpretation [...] = Slide Review) GL_SET_SLIDE _REVIEW_A UTO Automated Lcwndljyisri1024-07-17 13:55:20 Test Item Value Reference Range Interpretation Comments Neutro Auto (test code = Neutro 85.0 % N Auto) Lymph Auto (test code = Lymph Auto) 9.6 % N Dewey Auto (test code = Dewey Auto) 5.0 % N Eos, Auto (test code = Eos, Auto) 0.1 % N Basophil Auto (test code = Basophil 0.3 % N Auto) Neutro Absolute (test code = Neutro 12.0 x10 2.7-7.3 H Absolute) Lymph Absolute (test code = Lymph 1.4 x10 0.8-3.5 Absolute) Dewey Absolute (test code = Dewey 0.7 x10 0.3-0.9 Absolute) Eos Absolute (test code = Eos 0.0 x10 0.0-0.3 Absolute) Baso Absolute (test code = Baso 0.0 x10 0.0-0.1 Absolute) POC Bmlymxh3477-53-27 13:51:38 Test Item Value Reference Range Interpretation Comments Glucose POC (test 341 mg/dL 74-106 H POC Glucos e used on code = Glucose POC) critical ly ill patients is considered " off-label use" and has no t been cleared or appr zuly by the FDA. Altern ative testing methods should be considered i f the patient is crit ically ill. POC G3+ Jyw4720-13-00 13:02:53 Test Item Value Reference Range Interpretation [...] = R Radial N Performing Site) POC Uqxduda0775-51-00 10:04:37 Test Item Value Reference Range Interpretation Comments Glucose POC (test 197 mg/dL 74-106 H POC Glucos e used on code = Glucose POC) critical ly ill patients is considered " off-label use" and has no t been cleared or appr zuly by the FDA. Altern ative testing methods should be considered i f the patient is crit ically ill. POC Iijklrv7798-01-67 07:57:55 Test Item Value Reference Range Interpretation [...] crit ically ill. XR Chest 1 View Cdrvqtr8656-53-81 06:44:47Patient: JANIS PATTERSON Date/Time03/11/2020 01:10 CDTReason for Exampre op;Other (please specify)ReportXR CHEST 1 VIEW FRONTALDIAGNOSIS: Preop for respiratory clearance and appendectomyThe heart and mediastinum are stable. No consolidation or pleural fluid is seen.IMPRESSION: No active disease and no change since 02/21/2020. Final Dictated by: MD Patty, Phu Zazuetactated DT/TM: 03/11/2020 6:43 amSigned by: MD Brambila Michael JackSigned (Electronic Signature): 03/11/2020 6:44 amUrine Gqdfbxv8268-51-49 02:35:50Multiple organisms isolated. Probable contaminant. Suggest sterile recollect. No further workup.Urinalysis Zexfkblssrj9340-08-28 02:09:15 Test Item Value Reference Range Interpretation Comments UA WBC (test code = UA WBC) 51-100 /HPF 0-5 A UA RBC (test code = UA RBC) 0-4 /HPF 0-4 UA Bacteria (test code = UA 3+ /HPF Negative A Bacteria) UA Squam Epithelial (test code = 0-20 /LPF 0-20 UA Squam Epithelial) Urinalysis with Culture, if ipayndfbz9150-63-42 02:04:59 Test Item Value Reference Range Interpretation [...] Indicated Not Indicated A Ind?) Partial Thromboplastin Dfnc3864-25-31 01:19:59 Test Item Value Reference Range Interpretation Comments Partial Thromboplastin 28.3 seconds 24.0-35.0 APTT Heparin Time (test code = Therapeuti c Range: Partial Thromboplastin 47.9- 80.4 seconds Time) Prothrombin Time and [id number] 01:19:58 Test Item Value Reference Range Interpretation Comments Prothrombin Time (test code = 11.0 seconds 9.2-12.0 Prothrombin Time) INR (test code = INR) 1.0 ratio 0.9-1.2 Magnesium Cydcr1457-23-44 01:14:16 Test Item Value Reference Range Interpretation Comments Magnesium Level (test code = 1.4 mg/dL 1.6-2.6 L Magnesium Level) CT Abdomen and Pelvis w/o Pioqbynv9603-77-65 00:54:11Patient: JANIS PATTERSON Date/Time03/11/2020 00:41 CDTReason for [...] abscess.No urinary system calculus or hydronephrosis.RL: 460AFC: [id number] findings were discussed with Dr. Bee, who [...] = AST) 11 IntlUnit/L 15-37 L Lipase [id number] 23:18:17 Test Item Value Reference Range Interpretation Comments Lipase Level (test code = 373 IntlUnit/L 73-393 Lipase Level) Comprehensive Metabolic [id number] 23:18:17 Test Item Value Reference Range Interpretation [...] >60 mL/min/1.73 m2 N AA) Comprehensive Metabolic Bkrue2817-26-94 23:18:17 Test Item Value Reference Range Interpretation [...] N eGFR Non-AA) Complete Blood Count with Gzvcjuizctsv3299-05-40 22:55:17 Test Item Value Reference Range Interpretation [...] = Slide Review) GL_SET_SLIDE _REVIEW_A UTO Automated Sqgkzwtiwtve9133-19-76 22:55:17 Test Item Value Reference Range Interpretation Comments Neutro Auto (test code = Neutro 82.2 % N Auto) Lymph Auto (test code = Lymph Auto) 11.8 % N Dewey Auto (test code = Dewey Auto) 5.1 % N Eos, Auto (test code = Eos, Auto) 0.3 % N Basophil Auto (test code = Basophil 0.6 % N Auto) Neutro Absolute (test code = Neutro 10.2 x10 2.7-7.3 H Absolute) Lymph Absolute (test code = Lymph 1.5 x10 0.8-3.5 Absolute) Dewey Absolute (test code = Dewey 0.6 x10 0.3-0.9 Absolute) Eos Absolute (test code = Eos 0.0 x10 0.0-0.3 Absolute) Baso Absolute (test code = Baso 0.1 x10 0.0-0.1 Absolute) MCBQWMA3643-73-97 12:05:00[facility] [place] [id number] IMAGING REPORTPatient Name: JANIS PATTERSONte of Service: [id number]: 59 Sex: F Order #: [id number] Room: OPODOB: 1960 X-Ray Number: [id number] Record Number: [id number] Hospital Number: [id number] Physician: MITCHELL AMBROSIONDOrdering Physician: GARCIA AMBROSIOExam: Ultrasound [...] authenticated by DAVID RIGGS JR 2020-03-07 12:03:22PO Dfzlfdf6180-52-48 14:42:28 Test Item Value Reference Range Interpretation Comments Glucose POC (test 227 mg/dL 74-106 H POC Glucos e used on code = Glucose POC) critical ly ill patients is considered " off-label use" and has no t been cleared or appr zuly by the FDA. Altern ative testing methods should be considered i f the patient is crit ically ill. CT Angio Brain/Xbko6541-77-14 12:03:04Patient: JANIS PATTERSON Date/Time02/21/202011:39 CDTReason for ExamDizzinessReportHISTORY: [...] JulioSigned (Electronic Signature): 02/21/2020 12:03 pmCT Angio Mmku1365-63-69 12:03:04Patient: JANIS PATTERSON Date/Time02/21/202011:39 CDTReason for ExamConfusionReportHISTORY: [...] crit ically ill. XR Chest 1 View Iiimsaj7476-98-61 10:56:26Patient: JANIS PATTERSON Date/Time02/21/202010:19 CDTReason for ExamShortness [...] Sanchez (Electronic Signature): 02/21/2020 10:56 amComprehensive Metabolic Wfaxf0953-88-98 10:04:12 Test Item Value Reference Range Interpretation [...] = AST) 10 IntlUnit/L 15-37 L Troponin [id number] 10:04:12 Test Item Value Reference Range Interpretation Comments Troponin-I (test code = <0.015 ng/mL 0.010-0.040 Troponin-I) Lipid Leoht2686-50-19 10:04:12 Test Item Value Reference Range Interpretation Comments Cholesterol Total (test code = 149 mg/dL 0-200 Cholesterol Total) Triglycerides (test code = 127 mg/dL 2-150 Triglycerides) HDL (test code = HDL) 56 mg/dL 45-65 Chol/HDL (test code = Chol/HDL) 3 ratio 0-5 Magnesium Wxuyb7430-57-12 10:04:12 Test Item Value Reference Range Interpretation Comments Magnesium Level (test code = 1.3 mg/dL 1.6-2.6 L Magnesium Level) Comprehensive Metabolic Zjlsq9386-85-00 10:04:12 Test Item Value Reference Range Interpretation [...] >60 mL/min/1.73 m2 N AA) Comprehensive Metabolic Yozpf0803-62-97 10:04:12 Test Item Value Reference Range Interpretation [...] 51 mL/min/1.73 m2 N eGFR Non-AA) Lipid [id number] 10:04:12 Test Item Value Reference Range Interpretation [...] 3 ratio 0-5 Chol/HDL) Prothrombin Time and PJC1610-29-67 09:50:20 Test Item Value Reference Range Interpretation Comments Prothrombin Time (test code = 10.1 seconds 9.2-12.0 Prothrombin Time) INR (test code = INR) 1.0 ratio 0.9-1.2 Partial Thromboplastin Bpsk1962 09:50:20 Test Item Value Reference Range Interpretation Comments Partial Thromboplastin 27.5 seconds 24.0-35.0 APTT Heparin Time (test code = Therapeuti c Range: Partial Thromboplastin 47.9- 80.4 seconds Time) Complete Blood Count with Dualccgvrcvl9703-65-34 09:49:12 Test Item Value Reference Range Interpretation [...] = Slide Review) GL_SET_SLIDE _REVIEW_A UTO Automated Zwemhctdefuw7084-88-73 09:49:12 Test Item Value Reference Range Interpretation Comments Neutro Auto (test code = Neutro Auto) 61.8 % N Lymph Auto (test code = Lymph Auto) 30.0 % N Dewey Auto (test code = Dewey Auto) 5.0 % N Eos, Auto (test code = Eos, Auto) 2.6 % N Basophil Auto (test code = Basophil 0.6 % N Auto) Neutro Absolute (test code = Neutro 7.0 x10 2.7-7.3 Absolute) Lymph Absolute (test code = Lymph 3.4 x10 0.8-3.5 Absolute) Dewey Absolute (test code = Dewey 0.6 x10 0.3-0.9 Absolute) Eos Absolute (test code = Eos 0.3 x10 0.0-0.3 Absolute) Baso Absolute (test code = Baso 0.1 x10 0.0-0.1 Absolute) CT Brain/Head w/o Efarzljv4463-79-16 09:41:26Patient: JANIS PATTERSON Date/Time02/21/202009:21 CDTReason for ExamAltered [...] with Phu Head and documented in the [employer] system on 02/21/2020 9:41 AM, Message ID [id number]. Final Dictated by: MD Stevens Ramon JulioDictated DT/TM: 02/21/2020 9:38 amSigned by: MD Stevens Ramon JulioSigned (Electronic Sign ature): 02/21/2020 9:41 amPOC Troponin [id number] 09:21:16 Test Item Value Reference Range Interpretation [...] EKG, CKMB, clinicalobserva tions, symptons, etc. POC Bvoulzt4222-43-67 12:28:18 Test Item Value Reference Range Interpretation Comments Glucose POC (test 212 mg/dL 74-106 H POC Glucos e used on code = Glucose POC) critical ly ill patients is considered " off-label use" and has no t been cleared or appr zuly by the FDA. Altern ative testing methods should be considered i f the patient is crit ically ill. POC Qcpiwhc4874-22-00 07:20:41 Test Item Value Reference Range Interpretation Comments Glucose POC (test 252 mg/dL 74-106 H POC Glucos e used on code = Glucose POC) critical ly ill patients is considered " off-label use" and has no t been cleared or appr zuly by the FDA. Altern ative testing methods should be considered i f the patient is crit ically ill. Comprehensive Metabolic [id number] 04:31:16 Test Item Value Reference Range Interpretation [...] AST) 9 IntlUnit/L 15-37 L Comprehensive Metabolic Usgfn6584-25-74 04:31:16 Test Item Value Reference Range Interpretation [...] 40 mL/min/1.73 m2 N AA) Comprehensive Metabolic Habxi3527-89-16 04:31:16 Test Item Value Reference Range Interpretation [...] N eGFR Non-AA) Complete Blood Count with Imqysayfubnp3305-65-68 04:06:22 Test Item Value Reference Range Interpretation [...] = Slide Review) GL_SET_SLIDE _REVIEW_A UTO Automated Mgfowvokwrzf9472-79-92 04:06:22 Test Item Value Reference Range Interpretation Comments Neutro Auto (test code = Neutro 85.1 % N Auto) Lymph Auto (test code = Lymph Auto) 9.8 % N Dewey Auto (test code = Dewey Auto) 5.0 % N Basophil Auto (test code = Basophil 0.1 % N Auto) Neutro Absolute (test code = Neutro 14.1 x10 2.7-7.3 H Absolute) Lymph Absolute (test code = Lymph 1.6 x10 0.8-3.5 Absolute) Dewey Absolute (test code = Dewey 0.8 x10 0.3-0.9 Absolute) Eos Absolute (test code = Eos 0.0 x10 0.0-0.3 Absolute) Baso Absolute (test code = Baso 0.0 x10 0.0-0.1 Absolute) POC Qumhpqo4990-40-12 21:38:32 Test Item Value Reference Range Interpretation Comments Glucose POC (test 340 mg/dL 74-106 H POC Glucos e used on code = Glucose POC) critical ly ill patients is considered " off-label use" and has no t been cleared or appr zuly by the FDA. Altern ative testing methods should be considered i f the patient is crit ically ill. POC Bpfosrb6511-84-29 21:38:31 Test Item Value Reference Range Interpretation Comments Glucose POC (test 255 mg/dL 74-106 H POC Glucos e used on code = Glucose POC) critical ly ill patients is considered " off-label use" and has no t been cleared or appr zuly by the FDA. Altern ative testing methods should be considered i f the patient is crit ically ill. POC Sshijfe9659-66-72 12:28:25 Test Item Value Reference Range Interpretation Comments Glucose POC (test 330 mg/dL 74-106 H POC Glucos e used on code = Glucose POC) critical ly ill patients is considered " off-label use" and has no t been cleared or appr zuly by the FDA. Altern ative testing methods should be considered i f the patient is crit ically ill. POC Oyarqhz3583-78-11 11:53:50 Test Item Value Reference Range Interpretation [...] crit ically ill. XR Chest 1 View Wowpisa1628-31-13 11:38:51Patient: JANIS PATTERSON Date/Time01/04/2020 04:55 CSTReason for [...] code = <0.015 ng/mL 0.010-0.040 Troponin-I) Troponin [id number] 08:09:07 Test Item Value Reference Range Interpretation Comments Troponin-I (test code = <0.015 ng/mL 0.010-0.040 Troponin-I) CT Angio Vofdnrvom8802-80-69 05:30:07Patient: JANIS PATTERSON Date/Time01/04/2020 05:21 CSTReason for [...] 01/04/2020 5:30 am Complete Blood Count with Tfttzfmqlmoz3718-96-00 04:41:14 Test Item Value Reference Range Interpretation [...] = Slide Review) GL_SET_SLIDE _REVIEW_A UTO Automated Psmiksjjzldq6735-52-54 04:41:14 Test Item Value Reference Range Interpretation Comments Neutro Auto (test code = Neutro Auto) 50.8 % N Lymph Auto (test code = Lymph Auto) 40.4 % N Dewey Auto (test code = Dewey Auto) 5.0 % N Eos, Auto (test code = Eos, Auto) 3.0 % N Basophil Auto (test code = Basophil 0.8 % N Auto) Neutro Absolute (test code = Neutro 5.9 x10 2.7-7.3 Absolute) Lymph Absolute (test code = Lymph 4.7 x10 0.8-3.5 H Absolute) Dewey Absolute (test code = Dewey 0.6 x10 0.3-0.9 Absolute) Eos Absolute (test code = Eos 0.4 x10 0.0-0.3 H Absolute) Baso Absolute (test code = Baso 0.1 x10 0.0-0.1 Absolute) Comprehensive Metabolic Tojhb4036-25-93 04:37:09 Test Item Value Reference Range Interpretation [...] AST) 16 IntlUnit/L 15-37 Pro B Natriuretic Zlzxvzd7764-91-62 04:37:09 Test Item Value Reference Range Interpretation Comments NT-proBNP (test 75 pg/mL 0-125 < 300 pg/ml - heart code = NT-proBNP) failure un likelyAge less than 50 years, > 450 pg/ml - heart f ailure lilkelyAge 50 - 75 years, > 900 pg/ml - h eart failure likelyA ge greater than 75 years, > 1800 pg/ml - heart f ailure likely Comprehensive Metabolic [id number] 04:37:09 Test Item Value Reference Range Interpretation [...] 56 mL/min/1.73 m2 N AA) Comprehensive Metabolic Psbqd5699-01-36 04:37:09 Test Item Value Reference Range Interpretation [...] m2 N eGFR Non-AA) Prothrombin Time and [id number] 04:29:09 Test Item Value Reference Range Interpretation Comments Prothrombin Time (test code = 10.2 seconds 9.2-12.0 Prothrombin Time) INR (test code = INR) 1.0 ratio 0.9-1.2 Partial Thromboplastin [id number] 04:29:09 Test Item Value Reference Range Interpretation Comments Partial Thromboplastin 24.2 seconds 24.0-35.0 APTT Heparin Time (test code = Therapeuti c Range: Partial Thromboplastin 47.9- 80.4 seconds Time) D-Dimer Nvyshhpjslmx0739-25-48 04:29:09 Test Item Value Reference Range Interpretation [...] is of DVT or PEunlikely. POC Troponin [id number] 04:11:54 Test Item Value Reference Range Interpretation [...] tions, symptons, etc. XR Knee 3 Views Wcegq3866-04-67 10:51:31Patient: JANIS PATTERSON Date/Time06/30/2019 10:38 CDTReason for [...] Arthur LSigned (Electronic Signature): 06/30/2019 10:51 amPOC Kmczmba8552-00-75 13:27:29 Test Item Value Reference Range Interpretation [...] crit ically ill. Complete Blood Count with Bpeqjaprnieu1320-99-84 06:43:46 Test Item Value Reference Range Interpretation [...] = Slide Review) GL_SET_SLIDE _REVIEW_A UTO Automated Xjwnrdbmumgj5385-70-33 06:43:46 Test Item Value Reference Range Interpretation Comments Neutro Auto (test code = Neutro Auto) 68.5 % N Lymph Auto (test code = Lymph Auto) 21.0 % N Dewey Auto (test code = Dewey Auto) 9.0 % N Eos, Auto (test code = Eos, Auto) 1.3 % N Basophil Auto (test code = Basophil 0.2 % N Auto) Neutro Absolute (test code = Neutro 8.7 x10 2.7-7.3 H Absolute) Lymph Absolute (test code = Lymph 2.7 x10 0.8-3.5 Absolute) Dewey Absolute (test code = Dewey 1.1 x10 0.3-0.9 H Absolute) Eos Absolute (test code = Eos 0.2 x10 0.0-0.3 Absolute) Baso Absolute (test code = Baso 0.0 x10 0.0-0.1 Absolute) POC Eeoazvf1322-22-51 05:48:52 Test Item Value Reference Range Interpretation Comments Glucose POC (test 173 mg/dL 74-106 H POC Glucos e used on code = Glucose POC) critical ly ill patients is considered " off-label use" and has no t been cleared or appr zuly by the FDA. Altern ative testing methods should be considered i f the patient is crit ically ill. POC Zcrlbab4338-09-26 20:37:22 Test Item Value Reference Range Interpretation Comments Glucose POC (test 217 mg/dL 74-106 H POC Glucos e used on code = Glucose POC) critical ly ill patients is considered " off-label use" and has no t been cleared or appr zuly by the FDA. Altern ative testing methods should be considered i f the patient is crit ically ill. POC Dangcqp8495-20-80 16:38:05 Test Item Value Reference Range Interpretation Comments Glucose POC (test 126 mg/dL 74-106 H POC Glucos e used on code = Glucose POC) critical ly ill patients is considered " off-label use" and has no t been cleared or appr zuly by the FDA. Altern ative testing methods should be considered i f the patient is crit ically ill. POC Oyjjfdj0314-88-13 11:01:37 Test Item Value Reference Range Interpretation Comments Glucose POC (test 256 mg/dL 74-106 H POC Glucos e used on code = Glucose POC) critical ly ill patients is considered " off-label use" and has no t been cleared or appr zuly by the FDA. Altern ative testing methods should be considered i f the patient is crit ically ill. Basic Metabolic [id number] 08:13:13 Test Item Value Reference Range Interpretation [...] 8.0 mg/dL 8.5-10.1 L Level) Basic Metabolic [id number] 08:13:13 Test Item Value Reference Range Interpretation [...] mL/min/1.73 m2 N eGFR Non-AA) Basic Metabolic Ngrwo5398-04-37 08:13:13 Test Item Value Reference Range Interpretation [...] N eGFR Non-AA) Complete Blood Count with Mbmlozkpvnql4273-46-53 07:55:58 Test Item Value Reference Range Interpretation [...] = Slide Review) GL_SET_SLIDE _REVIEW_A UTO Automated Jbpnzxeynkmt3412-87-64 07:55:58 Test Item Value Reference Range Interpretation Comments Neutro Auto (test code = Neutro Auto) 63.9 % N Lymph Auto (test code = Lymph Auto) 26.5 % N Dewey Auto (test code = Dewey Auto) 7.7 % N Eos, Auto (test code = Eos, Auto) 1.4 % N Basophil Auto (test code = Basophil 0.5 % N Auto) Neutro Absolute (test code = Neutro 6.9 x10 2.7-7.3 Absolute) Lymph Absolute (test code = Lymph 2.9 x10 0.8-3.5 Absolute) Dewey Absolute (test code = Dewey 0.8 x10 0.3-0.9 Absolute) Eos Absolute (test code = Eos 0.2 x10 0.0-0.3 Absolute) Baso Absolute (test code = Baso 0.1 x10 0.0-0.1 Absolute) POC Ducpaao3163-04-70 07:06:01 Test Item Value Reference Range Interpretation Comments Glucose POC (test 161 mg/dL 74-106 H POC Glucos e used on code = Glucose POC) critical ly ill patients is considered " off-label use" and has no t been cleared or appr zuly by the FDA. Altern ative testing methods should be considered i f the patient is crit ically ill. POC [id number] 20:37:15 Test Item Value Reference Range Interpretation Comments Glucose POC (test 139 mg/dL 74-106 H POC Glucos e used on code = Glucose POC) critical ly ill patients is considered " off-label use" and has no t been cleared or appr zuly by the FDA. Altern ative testing methods should be considered i f the patient is crit ically ill. POC Hykzwvz9076-04-44 15:32:22 Test Item Value Reference Range Interpretation Comments Glucose POC (test 147 mg/dL 74-106 H POC Glucos e used on code = Glucose POC) critical ly ill patients is considered " off-label use" and has no t been cleared or appr zuly by the FDA. Altern ative testing methods should be considered i f the patient is crit ically ill. POC Cigsubr6538-81-37 12:58:00 Test Item Value Reference Range Interpretation [...] ill. XR Knee 1 or 2 Views Zdfux4084-73-64 10:42:14Patient: JANIS PATTERSON Date/Time05/10/2019 10:29 CDTReason for [...] Gustavo MSigned (Electronic Signature): 05/10/2019 10:42 amPOC Owrrzzk6783-25-44 06:32:30 Test Item Value Reference Range Interpretation Comments Glucose POC (test 177 mg/dL 74-106 H POC Glucos e used on code = Glucose POC) critical ly ill patients is considered " off-label use" and has no t been cleared or appr zuly by the FDA. Altern ative testing methods should be considered i f the patient is crit ically ill. Red Blood Cells Eiezptvzuhqu2223-94-94 17:06:46 Test Item Value Reference Range Interpretation Comments # of Units (test code = # of Units) 2 N RBC Trn Reason (test code = RBC Trn Surgery N Reason) RBC Product Ready (test code = RBC RBC Ready Product Ready) ABORh Whfgcz0101-95-55 16:57:21 Test Item Value Reference Range Interpretation Comments Methodology (test code = Test-Tube(TT) Methodology) Anti-A (test code = Anti-A) 4+ Anti-B (test code = Anti-B) 4+ Anti-AB (test code = Anti-AB) NT Anti-D (test code = Anti-D) 4+ ABORh Retype (test code = ABORh AB POS Retype) [id number] 14:41:14 Test Item Value Reference Range Interpretation Comments Previous History (test code No Prev History = Previous History) BBID (test code = BBID) [id number] Methodology (test code = Ortho-Vision(OV) Methodology) Anti-A (test code = Anti-A) 4+ Anti-B (test code = Anti-B) 4+ Anti-D (test code = Anti-D) 4+ DCon (test code = DCon) 0 A1 (test code = A1) 0 B cells (test code = B 0 cells) ABORh (test code = ABORh) AB POS 2C [id number] 14:41:14 Test Item Value Reference Range Interpretation Comments Methodology (test code = Ortho-Vision(OV) Methodology) SC1 (test code = SC1) 0 SC2 (test code = SC2) 0 Antibody Screen (2C) (test Negative ABSC code = Antibody Screen (2C)) Urine Hbctpya1808-02-13 07:25:17 Test Item Value Reference Range Interpretation [...] coli C Urine Added by GL_SET_CULT_RFLXVitamin D, 22-Bcclxxl3583-86-19 03:08:52 16.6Vitamin D deficiency has been defined by the [place] of[employer] and an Endocrine Society practice guideline as alevel of serum 25-OH vitamin D less than 20 ng/mL (1,2).The Endocrine Society went on to further define vitamin Dinsufficiency as a level between 21 and 29 ng/mL (2).1. IOM ([place] of [employer]). 2010. Dietary reference intakes for calcium and D. [place]: The National Academies Press.2. Jaswinder MF, Dangelo ROSE, Carlos CHIANG, et al. Evaluation, treatment, and prevention of vitamin D deficiency: an Endocrine Society clinical practice guideline. JCEM. 2010; 96(7):1911- 30.Performed At: [facility] [address] [id number] Kyle L MD Ph:[phone] with Culture, if jrlbpxrzx6208-98-73 12:21:12 Test Item Value Reference Range Interpretation [...] UA Micro Ind?) rule GL_SET_UA_MICRO _IND Urinalysis Jtwhuyllqme4103-57-87 12:21:12 Test Item Value Reference Range Interpretation [...] Hyal 1-6 /LPF 1-6 Cast) Erythrocyte Sedimentation Cqkz7416-42-35 11:19:25 Test Item Value Reference Range Interpretation Comments ESR, Westergren (test code = ESR, 108 mm/hr 0-20 H Westergren) Comprehensive Metabolic Ggskw6128-31-90 10:46:09 Test Item Value Reference Range Interpretation [...] AST) 7 IntlUnit/L 15-37 L Comprehensive Metabolic [id number] 10:46:09 Test Item Value Reference Range Interpretation [...] >60 mL/min/1.73 m2 N AA) Comprehensive Metabolic [id number] 10:46:09 Test Item Value Reference Range Interpretation [...] N eGFR Non-AA) XR Knee 3 Views Zdptv9173-38-62 10:37:31Patient: JANIS PATTERSON Date/Time05/04/2019 10:31 CDTReason for [...] Joseph ASigned (Electronic Signature): 05/04/2019 10:37 amAutomated Mzfxxqsaxxqy6841-96-13 10:34:41 Test Item Value Reference Range Interpretation Comments Neutro Auto (test code = Neutro Auto) 57.2 % N Lymph Auto (test code = Lymph Auto) 33.6 % N Dewey Auto (test code = Dewey Auto) 4.9 % N Eos, Auto (test code = Eos, Auto) 3.7 % N Basophil Auto (test code = Basophil 0.6 % N Auto) Neutro Absolute (test code = Neutro 5.3 x10 2.7-7.3 Absolute) Lymph Absolute (test code = Lymph 3.1 x10 0.8-3.5 Absolute) Dewey Absolute (test code = Dewey 0.5 x10 0.3-0.9 Absolute) Eos Absolute (test code = Eos 0.3 x10 0.0-0.3 Absolute) Baso Absolute (test code = Baso 0.1 x10 0.0-0.1 Absolute) Complete Blood Count with [id number] 10:34:40 Test Item Value Reference Range Interpretation [...] Review) GL_SET_SLIDE _REVIEW_A UTO XR Chest 2 [id number] 10:34:37Patient: JANIS PATTERSON Date/Time05/04/2019 10:20 CDTReason for [...] (Electronic Signature): 05/04/2019 10:34 amProthrombin Time and [id number] 10:28:30 Test Item Value Reference Range Interpretation Comments Prothrombin Time (test code = 10.2 seconds 9.2-12.0 Prothrombin Time) INR (test code = INR) 1.0 ratio 0.9-1.2 Partial Thromboplastin [id number] 10:28:30 Test Item Value Reference Range Interpretation Comments Partial Thromboplastin 26.9 seconds 24.0-35.0 APTT Heparin Time (test code = Therapeuti c Range: Partial Thromboplastin 47.9- 80.4 seconds Time) Z-ORG SCREEN MAMMO W/[id number] 13:05:00BA08 Ibarra StreetIAGNOSTIC IMAGING REPORTPatient Name: JANIS PATTERSON LDate of Service: [id number]: 58 Sex: F Order #: 100 Room: OPODOB: 1960 X-Ray Number: [id number] Record Number: [id number] Hospital Number: [id number] Physician: MITCHELL AMBROSIONDOrdering Physician: CHAZ AMBROSIOATERAL DIGITAL MAMMOGRAM WITH TOMOSYNTHESIS:CLINICAL HISTORY: Routine annual screening study; family history of breastcancer in a cousin.TECHNIQUE: The craniocaudal and mediolateral views were obtained andtomosynthesis was utilized.SUPERVISOR CUTTING DEPARTMENT: ANA LILIA ELLIOTT, RT R (M)FINDINGS: The [...] be deferredbecause of a negative mammogram.MAMMOGRAPHY AT [facility] IS ACCREDITED BY THE [place] COLLEGE OFRADIOLOGYTHANK YOU FOR YOUR OUTPATIENT REFERRALjhbElectronically Signed By: David Winston M.D., 03/22/2019 1:03 PMLegally authenticated by JOSE Siu 2019-03-22 13:03:03-ORG SCREEN MAMMO W/CAD +[id number] 10:30:[address] [id number] IMAGING REPORTPatient Name: JANIS PATTERSON LDate of Service: [id number]: 57 Sex: F Order #: [id number] Room: OPODOB: 1960 X- Ray Number: [id number] Record Number: [id number] Hospital Number: [id number] Physician: DAILY, ANANDOrdering [...] be deferredbecause of a negative mammogram.MAMMOGRAPHY AT [facility] IS ACCREDITED BY THE AMERICANCOLLEGE OF RADIOLOGYElectronically Signed By: Tristian Eden M.D., 03/17/2018 10:28AMLegally authenticated by JASMINE ALLISON 2018-03-17 10:28:01CT CHEST ANGIO W/[id number] 08:45:49CTA CHEST WITH 3-D, AND MULTIPLANAR REFORMATS:CLINICAL [...] within the rightlower lobe.XR CHEST SGL 1V, [id number] 07:59:31 XR CHEST SGL 1V, FRONTALDIAGNOSIS: Mid [...] lobe is not absolutely excluded. KNEE 3 [id number] 10:04:[address] [id number] IMAGING REPORTPatient Name: JANIS PATTERSON Izabelate of Service: [id number]: 56 Sex: F Order #: [id number] Room: OPODOB: 1960 X-Ray Number: [id number] Record Number: [id number] Hospital Number: [id number] Physician: GARCIA AMBROSIOOrdering Physician: Aries AMBROSIO kneesAvailable [...] authenticated by MERY GOMEZ 2016-12-30 10:02:18KNEE 4 [id number] 10:04:[address] [id number] IMAGING REPORTPatient Name: JANIS PATTERSON Izabelate of Service: [id number]: 56 Sex: F Order #: 100 Room: OPODOB: 1960 X-Ray Number: [id number] Record Number: [id number] Hospital Number: [id number] Physician: Ethan AMBROSIO Physician: Aries AMBROSIO kneesAvailable [...]
[2020-10-09] MEDS ORDERED: WATER FOR INJ,STERILE 20 ML ONE (12:20)
--- NOTE | 2020-10-09 13:44 | ER ---
Nurse's Notes [facility] Name: Marah Patterson Age: 59 yrs Sex: Female : 1960 Arrival Date: 10/09/2020 Time: 11:20 Bed 15 Private MD: Diagnosis: Gastrostomy status;Gastrostomy complications;Constipation Presentation: 10/09 11:20 Chief complaint: EMS states: pt from [facility] they said they are having problems with her tw2 PEG tube just noticed it about an hour ago, pt is at her normal baseline mentation, BGL 138. Coronavirus screen: At this time, the client does not indicate any symptoms associated with coronavirus-19. Ebola Screen: Patient denies travel to an Ebola-affected area in the 21 days before illness onset. Initial Sepsis Screen: Does the patient meet any 2 criteria? No. Patient's initial sepsis screen is negative. Does the patient have a suspected source of infection? No. Patient's initial sepsis screen is negative. Risk Assessment: Do you want to hurt yourself or someone else? Patient reports no desire to harm self or others. Onset of symptoms was October 09, 2020. 11:20 Method Of Arrival: EMS: [facility] tw2 11:20 Acuity: CHARLES 3 tw2 Triage Assessment: 11:23 General: Appears in no apparent distress. Behavior is calm, cooperative, appropriate tw2 for age. Pain: Denies pain. Neuro: Level of Consciousness is awake, alert, obeys commands, Oriented to person. 11:24 Musculoskeletal: Range of motion: limited in LEFT side. 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 - Social history:: Smoking status: . - Family history:: not pertinent. Screenin:36 Abuse screen: Denies threats or abuse. Nutritional screening: No deficits noted. tw2 Tuberculosis screening: No symptoms or risk factors identified. Fall Risk Secondary diagnosis (15 points) impaired mobility, CVA. Assessment: 11:23 General: Appears in no apparent distress. obese, Behavior is calm, cooperative, tw2 appropriate for age. Pain: Denies pain. Neuro: Level of Consciousness is awake, alert, obeys commands, Oriented to person. Cardiovascular: Heart tones S1 S2 Patient's skin is warm and dry. Respiratory: Airway is patent Respiratory effort is even, unlabored, Respiratory pattern is regular, symmetrical, Breath sounds are clear bilaterally. GI: Abdomen is round obese, Bowel sounds present X 4 quads. PEG tube 16f on LEFT side of abdomen noted. : No signs and/or symptoms were reported regarding the genitourinary system. EENT: No signs and/or symptoms were reported regarding the EENT system. Derm: No signs and/or symptoms reported regarding the dermatologic system. Musculoskeletal: Range of motion: limited in LEFT side from previous CVA. 12:14 Reassessment: per Dr. Rose give lactulose via PEG tube after PEG tube placement tw2 verification imaging. 12:17 Reassessment: Patient appears in no apparent distress at this time. Patient and/or tw2 family updated on plan of care and expected duration. Pain level reassessed. 13:15 Reassessment: Patient appears in no apparent distress at this time. Patient and/or tw2 family updated on plan of care and expected duration. Pain level reassessed. 14:03 Reassessment: Patient appears in no apparent distress at this time. Patient and/or tw2 family updated on plan of care and expected duration. Pain level reassessed. 14:07 Reassessment: Patient appears in no apparent distress at this time. Patient and/or tw2 family updated on plan of care and expected duration. Pain level reassessed. Vital Signs: 11:20 BP 121 / 71; Pulse 88; Resp 16; Temp 97.8(TE); Pulse Ox 95% on R/A; tw2 12:17 BP 134 / 95; Pulse 92; Resp 18; Pulse Ox 99% on R/A; tw2 13:15 BP 129 / 89; Pulse 89; Resp 18; Pulse Ox 96% on R/A; tw2 14:03 BP 130 / 93; Pulse 82; Resp 18; Pulse Ox 95% on R/A; tw2 ED Course: 11:20 Patient arrived in ED. tw 11:23 Triage completed. tw2 11:23 Arm band placed on. 11:23 Bed in low position. Call light in reach. Side rails up X2. Pulse ox on. NIBP on. tw2 11:29 Elba Collazo, RN is Primary Nurse. tw2 11:30 Job Rose MD is Attending Physician. [facility] 12:14 removal of 16 f PEG tube pt arrived with, assisted with 16 f PEG tube insertion, tw2 inserted by Dr. Rose, with 20 ml Sterile water used for balloon inflation, pt tolerated well. imaging ordered post px. 13:30 ENTEROSTOMY TUBE CHECK W/CONTR In Process Unspecified. EDMS 13:43 Rocky Simmons MD is Referral Physician. [facility] 14:08 Report given to ROLF Isaac at [facility]. tw2 14:09 Patient did not have IV access during this emergency room visit. tw2 Administered Medications: 13:11 CANCELLED (Duplicate Order): Lactulose 30 grams 45 ml PO once [facility] 13:50 Drug: Lactulose 30 grams {Note: placement verified per Dr. Rose.} Volume: 45 ml; tw2 Route: PO; 14:09 Follow up: Response: No adverse reaction tw2 Outcome: 13:43 Discharge ordered by . [facility] 14:08 Discharged to group home. Report called to ROLF Isaac discharged to group home via tw2 EMS 14:08 Condition: stable 14:08 Discharge instructions given to patient, EMS, Instructed on discharge instructions, follow up and referral plans. Demonstrated understanding of instructions, follow-up care, medications, Prescriptions given X 1. 14:09 Patient left the ED. tw2 Signatures: Dispatcher [employer] EDHI Job Rose MD MD cha Wise, Tara, RN RN tw2 Corrections: (The following items were deleted from the chart) 11:24 11:23 General: Appears in no apparent distress. Behavior is calm, cooperative, tw2 appropriate for age, tw2 12:19 12:18 Reassessment: per Dr. Rose lactulose after PEG tube placement verification tw2 imaging. tw2 12:26 12:14 Reassessment: per Dr. Rose lactulose after PEG tube placement verification tw2 imaging. tw2
--- NOTE | 2020-10-09 13:44 | EDPHYS ---
Physician Documentation [facility] Name: Marah Patterson Age: 59 yrs Sex: Female : 1960 Arrival Date: 10/09/2020 Time: 11:20 Bed 15 Private MD: ED Physician Job Rose HPI: 10/09 13:17 This 59 yrs old Black Female presents to ER via EMS with complaints of problem with PEG naomi tube. 13:17 The patient presents with abdominal pain in the left upper quadrant, at peg site, not naomi functioning. Onset: The symptoms/episode began/occurred 2 day(s) ago. The symptoms do not radiate. Associated signs and symptoms: none. The symptoms are described as burning, crampy. Modifying factors: The symptoms are alleviated by nothing, the symptoms are aggravated by nothing. Severity of pain: At its worst the pain was mild in the emergency department the pain is unchanged. The patient has experienced similar episodes in the past, a few times. 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 - Social history:: Smoking status: . - Family history:: not pertinent. ROS: 13:17 Constitutional: Negative for fever, chills, and weight loss, Eyes: Negative for injury, naomi pain, redness, and discharge, ENT: Negative for injury, pain, and discharge, Neck: Negative for injury, pain, and swelling, Cardiovascular: Negative for chest pain, palpitations, and edema, Respiratory: Negative for shortness of breath, cough, wheezing, and pleuritic chest pain, Back: Negative for injury and pain, : Negative for injury, bleeding, discharge, and swelling, MS/Extremity: Negative for injury and deformity, Skin: Negative for injury, rash, and discoloration, Neuro: Negative for headache, weakness, numbness, tingling, and seizure, Psych: Negative for depression, anxiety, suicide ideation, homicidal ideation, and hallucinations, Allergy/Immunology: Negative for hives, rash, and allergies, Endocrine: Negative for neck swelling, polydipsia, polyuria, polyphagia, and marked weight changes. 13:17 Abdomen/GI: Positive for constipation, abdominal cramps, of the left upper quadrant. Exam: 13:17 Constitutional: This is a well developed, well nourished patient who is awake, alert, naomi and in no acute distress. Head/Face: Normocephalic, atraumatic. Eyes: Pupils equal round and reactive to light, extra-ocular motions intact. Lids and lashes normal. Conjunctiva and sclera are non-icteric and not injected. Cornea within normal limits. Periorbital areas with no swelling, redness, or edema. ENT: Nares patent. No nasal discharge, no septal abnormalities noted. Tympanic membranes are normal and external auditory canals are clear. Oropharynx with no redness, swelling, or masses, exudates, or evidence of obstruction, uvula midline. Mucous membranes moist. Neck: Trachea midline, no thyromegaly or masses palpated, and no cervical lymphadenopathy. Supple, full range of motion without nuchal rigidity, or vertebral point tenderness. No Meningismus. Chest/axilla: Normal chest wall appearance and motion. Nontender with no deformity. No lesions are appreciated. Cardiovascular: Regular rate and rhythm with a normal S1 and S2. No gallops, murmurs, or rubs. Normal PMI, no JVD. No pulse deficits. Respiratory: Lungs have equal breath sounds bilaterally, clear to auscultation and percussion. No rales, rhonchi or wheezes noted. No increased work of breathing, no retractions or nasal flaring. Back: No spinal tenderness. No costovertebral tenderness. Full range of motion. Female : Normal external genitalia. Skin: Warm, dry with normal turgor. Normal color with no rashes, no lesions, and no evidence of cellulitis. MS/ Extremity: Pulses equal, no cyanosis. Neurovascular intact. Full, normal range of motion. Neuro: Awake and alert, GCS 15, oriented to person, place, time, and situation. Cranial nerves II-XII grossly intact. Motor strength 5/5 in all extremities. Sensory grossly intact. Cerebellar exam normal. Normal gait. Psych: Awake, alert, with orientation to person, place and time. Behavior, mood, and affect are within normal limits. 13:17 Abdomen/GI: Inspection: distension, Bowel sounds: normal, Palpation: mild abdominal tenderness, Liver: no appreciated palpable abnormalities, Hernia: not appreciated. Vital Signs: 11:20 BP 121 / 71; Pulse 88; Resp 16; Temp 97.8(TE); Pulse Ox 95% on R/A; tw2 12:17 BP 134 / 95; Pulse 92; Resp 18; Pulse Ox 99% on R/A; tw2 13:15 BP 129 / 89; Pulse 89; Resp 18; Pulse Ox 96% on R/A; tw2 14:03 BP 130 / 93; Pulse 82; Resp 18; Pulse Ox 95% on R/A; tw2 Procedures: 13:23 G-tube placement: a 16 Palestinian catheter was placed, by the ED physician, Job Rose cha, MD. MDM: 11:30 Patient medically screened. [facility] 13:22 Differential diagnosis: non-specific abd pain. Data reviewed: vital signs, nurses naomi notes, lab test result(s), radiologic studies, plain films. Data interpreted: rack maker: rate is 92 beats/min, rhythm is regular, Pulse oximetry: on room air is 99 %. Test interpretation: by ED physician or midlevel provider: plain radiologic studies. Counseling: I had a detailed discussion with the patient and/or guardian regarding: the historical points, exam findings, and any diagnostic results supporting the discharge/admit diagnosis, the presence of at least one elevated blood pressure reading (>120/80) during this emergency department visit, lab results, radiology results, the need for outpatient follow up, for definitive care, a truck loader overhead crane, an computer laboratory technician. 10/09 12:55 Order name: ENTEROSTOMY TUBE CHECK W/CONTR EDMS Administered Medications: 13:11 CANCELLED (Duplicate Order): Lactulose 30 grams 45 ml PO once [facility] 13:50 Drug: Lactulose 30 grams {Note: placement verified per Dr. Rose.} Volume: 45 ml; tw2 Route: PO; 14:09 Follow up: Response: No adverse reaction tw2 Disposition: 10/09/20 13:43 Discharged to Home. Impression: Gastrostomy status, Gastrostomy complications, Constipation. - Condition is Stable. - Discharge Instructions: Constipation, Adult, Constipation, Adult, Nkhj-ih-Lske, Gastrostomy Tube Home Guide, Adult, PEG Tube Home Guide, Qyhu-ry-Sgdq, Constipation, Pediatric, Ucsz-rf-Dlta, PEG Tube Home Guide. - Prescriptions for Lactulose 10 gram/15 mL Oral Solution - take 30 milliliters by G-TUBE route once daily; 300 milliliter. - Medication Reconciliation Form, Thank You Letter, Antibiotic Education, Prescription Opioid Use form. - Follow up: Private Physician; When: 2 - 3 days; Reason: Recheck today's complaints, Continuance of care, Re-evaluation by your physician. Follow up: Rocky Simmons; When: 2 - 3 days; Reason: Recheck today's complaints, Re-evaluation by your physician. - Problem is new. - Symptoms have improved. Signatures: Dispatcher [employer] EDOK Job Rose MD MD cha Wise, Tara RN RN tw2 Corrections: (The following items were deleted from the chart) 12:55 12:19 Abdomen 1 View (KUB)+RAD.RAD.BRZ ordered. [facility] 13:11 12:18 Lactulose 30 grams 45 ml PO once ordered. naomi salgado 14:09 13:43 10/09/2020 13:43 Discharged to Home. Impression: Gastrostomy status; Gastrostomy tw2 complications; Constipation. Condition is Stable. Discharge Instructions: Constipation, Adult, Constipation, Adult, Lmee-mv-Ghjw, Gastrostomy Tube Home Guide, Adult, PEG Tube Home Guide, Eshn-si-Llfw, Constipation, Pediatric, Gmjs-gz-Xgio, PEG Tube Home Guide. Prescriptions for Lactulose 10 gram/15 mL Oral Solution - take 30 milliliters by G-TUBE route once daily; 300 milliliter. and Forms are Medication Reconciliation Form, Thank You Letter, Antibiotic Education, Prescription Opioid Use. Follow up: Private Physician; When: 2 - 3 days; Reason: Recheck today's complaints, Continuance of care, Re-evaluation by your physician. Follow up: Rocky Simmons; When: 2 - 3 days; Reason: Recheck today's complaints, Re-evaluation by your physician. Problem is new. Symptoms have improved. naomi
[2020-10-09] MEDS ORDERED: LACTULOSE 20 GM/30 ML UCUP ONE (13:47)
--- NOTE | 2020-10-09 13:47 | RAD REPORT ---
EXAM DESCRIPTION: RAD - ENTEROSTOMY TUBE CHECK W/CONTR - 10/09/2020 1:30 pm CLINICAL HISTORY: ABD PAIN, malfunction Ing or displaced enterostomy tube COMPARISON: July 13, 2020 FINDINGS: KUB images were obtained prior to and subsequent to replacement or repositioning of an ent erostomy tube. Initial image shows no abnormal bowel pattern. No suspicious finding. After replacement or repositioning of the enterostomy tube and retrograde injection of contrast, the KUB study shows good positioning of the tube in the distal body of the stomach. All injected contrast is within the lumen of the stomach. IMPRESSION: Enterostomy tube in good position within the stomach. No extravasation of contrast.
[2020-10-09 16:43] VITALS: TEMP 97.8
[2020-10-09 16:52] VITALS: BP 130/93; O2SAT 95
== END 2020-10-09 14:09 | disposition home or self-care (01) ==
LOC: ER 11:11 → SUPCPDRO 11:11 → ER 14:09
DX: K59.00 Constipation, unspecified (principal); Z43.1 Encounter for attention to gastrostomy; Z88.1 Allergy status to other antibiotic agents; Z91.048 Other nonmedicinal substance allergy status
CPT/HCPCS: 49465; 99284

== ENCOUNTER 2020-10-24 23:46 | Inpatient (IN) | payer OTHER ==
--- OUTSIDE RECORDS SUMMARY | 2020-10-24 23:57 | XMS REPORT | Continuity of Care Document ---
:1960 Author Organization [facility] t Address [address] [place] [address] Care Team Providers Name Role Phone DAILY [...] Type Date Date Clinician iodine DA Active SC 2020-0 [facility] 8-17 [place] 00:00: [facility] [place] levoflox DA Active SC 2019-0 [facility] 8-17 [place] 00:[facility]: [facility] 00 are [place] No Known DA Active U 0 [facility] Allergie 7-19 [place] s 00:00: [facility] 00 are [place] Medications This patient has no known medications. Procedures This patient has no known procedures. Encounters Start End Encounter Admission Attending Care Care Encounter Source Date/Time Date/Time Type Type Clinicians Facility Department ID 2020-04-13 2020-04-13 [facility] [id number] 00:00:00 00:00:00 Management [facility] [id number] [facility] [id number] 2017-09-10 2017-09-10 Outpatient 3 ELYSIA BARRERA [id number] [facility] 10:49:00 [facility]:49:[facility] 2017-05-28 2017-05-28 Emergency E [facility] [id number] [facility] 04:36:00 04:36:00 2017-05-21 2017-05-21 Inpatient E [facility] [id number] [facility] 02:34:00 02:34:00 Results Test Description Test Time Test Comments Results Result Comments Source GLUBED 2020-07-10 11:55:00 Test Item Value Reference Range Interpretation Comme nts GLUBED (test code = GLUBED) 126 mg/dL 65-99 H BASIC METABOLIC [id number] 10:08:00 Test Item Value Reference Range Interpretation [...] code 9.4 mg/dL 8.5-10.1 N = CA) [id number] 10:08:00 Test Item Value Reference Range Interpretation Comments MAGNESIUM (test code = MAG) 1.8 mg/dL 1.8-2.4 N CBC W/AUTO [id number] 09:46:00 Test Item Value Reference Range Interpretation [...] = BA#) 0.09 10 3/uL 0.0-0.1 N [id number] 06:11:00 Test Item Value Reference Range Interpretation Comments GLUBED (test code = GLUBED) 127 mg/dL 65-99 H [id number] 01:06:00 Test Item Value Reference Range Interpretation Comments GLUBED (test code = GLUBED) 131 mg/dL 65-99 H [id number] 16:55:00 Test Item Value Reference Range Interpretation Comments GLUBED (test code = GLUBED) 118 mg/dL 65-99 H [id number] 11:34:00 Test Item Value Reference Range Interpretation Comments GLUBED (test code = GLUBED) 123 mg/dL 65-99 H [id number] 06:21:00 Test Item Value Reference Range Interpretation Comments GLUBED (test code = GLUBED) 115 mg/dL 65-99 H BASIC METABOLIC [id number] 04:53:00 Test Item Value Reference Range Interpretation [...] code 9.5 mg/dL 8.5-10.1 N = CA) [id number] 04:53:00 Test Item Value Reference Range Interpretation Comments MAGNESIUM (test code = MAG) 1.7 mg/dL 1.8-2.4 L [id number] 04:53:00 Test Item Value Reference Range Interpretation Comments TROPONIN-I (test code = TROPI) < 0.02 ng/mL 0.00-0.07 N [id number] 23:24:00 Test Item Value Reference Range Interpretation Comments GLUBED (test code = GLUBED) 105 mg/dL 65-99 H THYROID STIMULATING [id number] 20:50:00 Test Item Value Reference Range Interpretation Comments THYROID STIMULATING HORMONE (test 0.66 mIU/mL 0.36-3.74 N code = TSH) Spec Comments: add to blood drawnHARDSTICK MISSED [id number] 20:50:00 Test Item Value Reference Range Interpretation Comments TROPONIN-I (test code = TROPI) < 0.02 ng/mL 0.00-0.07 N Spec Comments: add to blood drawnHARDSTICK MISSED [id number] 20:34:00 Test Item Value Reference Range Interpretation [...] Spec Comments: add to blood drawnHARDSTICK MISSED [id number] 17:24:00 Test Item Value Reference Range Interpretation Comments GLUBED (test code = GLUBED) 105 mg/dL 65-99 H [id number] 12:01:00 Test Item Value Reference Range Interpretation Comments GLUBED (test code = GLUBED) 109 mg/dL 65-99 H [id number] 06:09:00 Test Item Value Reference Range Interpretation Comments GLUBED (test code = GLUBED) 100 mg/dL 65-99 H [id number] 02:04:00 Test Item Value Reference Range Interpretation Comments GLUBED (test code = GLUBED) 100 mg/dL 65-99 H [id number] 21:52:00 Test Item Value Reference Range Interpretation Comments GLUBED (test code = GLUBED) 98 mg/dL 65-99 N [id number] 16:16:00 Test Item Value Reference Range Interpretation Comments GLUBED (test code = GLUBED) 88 mg/dL 65-99 N [id number] 11:33:00 Test Item Value Reference Range Interpretation Comments GLUBED (test code = GLUBED) 109 mg/dL 65-99 H [id number] 07:15:00 Test Item Value Reference Range Interpretation Comments GLUBED (test code = GLUBED) 72 mg/dL 65-99 N [id number] 06:09:00 Test Item Value Reference Range Interpretation Comments GLUBED (test code = GLUBED) 54 mg/dL 65-99 L [id number] 03:15:00 Test Item Value Reference Range Interpretation Comments GLUBED (test code = GLUBED) 94 mg/dL 65-99 N [id number] 02:50:00 Test Item Value Reference Range Interpretation Comments GLUBED (test code = 46 mg/dL 65-99 LL CRITICAL RESULT - GLUBED) TESTING PERFORM ED BY PRIMARY CAREGIV ER [id number] 00:44:00 Test Item Value Reference Range Interpretation Comments GLUBED (test code = GLUBED) 75 mg/dL 65-99 N [id number] 00:04:00 Test Item Value Reference Range Interpretation Comments GLUBED (test code = GLUBED) 63 mg/dL 65-99 L [id number] 17:39:00 Test Item Value Reference Range Interpretation Comments GLUBED (test code = GLUBED) 99 mg/dL 65-99 N [id number] 12:11:00 Test Item Value Reference Range Interpretation Comments GLUBED (test code = GLUBED) 112 mg/dL 65-99 H [id number] 06:10:00 Test Item Value Reference Range Interpretation Comments GLUBED (test code = GLUBED) 99 mg/dL 65-99 N [id number] 06:01:00 Test Item Value Reference Range Interpretation Comments GLUBED (test code = GLUBED) 109 mg/dL 65-99 H [id number] 23:55:00 Test Item Value Reference Range Interpretation Comments GLUBED (test code = GLUBED) 89 mg/dL 65-99 N [id number] 16:54:00 Test Item Value Reference Range Interpretation Comments GLUBED (test code = GLUBED) 114 mg/dL 65-99 H [id number] 12:41:00 Test Item Value Reference Range Interpretation Comments GLUBED (test code = GLUBED) 114 mg/dL 65-99 H [id number] 12:14:00 Test Item Value Reference Range Interpretation Comments MAGNESIUM (test code = MAG) 1.5 mg/dL 1.8-2.4 L CBC W/MANUAL [id number] 06:25:00 Test Item Value Reference Range Interpretation [...] NORMAL PLT MORPH NORMAL code = PLTMORPH) [id number] 06:20:00 Test Item Value Reference Range Interpretation Comments GLUBED (test code = GLUBED) 103 mg/dL 65-99 H COMPREHENSIVE METABOLIC [id number] 04:57:00 Test Item Value Reference Range Interpretation [...] PHOSPHATASE (test code = ALKP) CBC W/MANUAL [id number] 04:44:00 Test Item Value Reference Range Interpretation [...] PLATELET MORPHOLOGY (test code NORMAL = PLTMORPH) [id number] 21:29:00 Test Item Value Reference Range Interpretation Comments GLUBED (test code = GLUBED) 88 mg/dL 65-99 N [id number] 18:37:00 Test Item Value Reference Range Interpretation Comments GLUBED (test code = GLUBED) 98 mg/dL 65-99 N SED [id number] 13:32:00 Test Item Value Reference Range Interpretation Comments SED RATE (test code = SEDW) 61 mm/hr 0-20 H C REACTIVE [id number] 13:29:00 Test Item Value Reference Range Interpretation Comments C REACTIVE PROTEIN (test code = 10.30 mg/dL 0.00-0.33 H CRP) [id number] 12:16:00 Test Item Value Reference Range Interpretation Comments GLUBED (test code = GLUBED) 91 mg/dL 65-99 N [id number] 06:43:00 Test Item Value Reference Range Interpretation Comments GLUBED (test code = GLUBED) 114 mg/dL 65-99 H HGBA1C - GLYCOSYLATED [id number] 05:36:00 Test Item Value Reference Range Interpretation Comments GLYCOSYLATED HEMOGLOBIN (HA1C) (test 5.8 4.5-5.9 N code = GLYHGB) UA RFLX MICR CULT IF [id number] 04:26:00 Test Item Value Reference Range Interpretation [...] Moderate /HPF FEW SQU) Indication for culture: Dysuria/[id number] 02:30:00 Test Item Value Reference Range Interpretation Comments GLUBED (test code = GLUBED) 149 mg/dL 65-99 H [id number] 22:19:00 Test Item Value Reference Range Interpretation Comments GLUBED (test code = GLUBED) 165 mg/dL 65-99 H LACTIC [id number] 20:15:00 Test Item Value Reference Range Interpretation [...] 40 mg/dL 0-100 N Coronavirus 2019 nCoV [id number] 17:52:00 Test Item Value Reference Range Interpretation Comments Coronavirus 2019 Negative Negative This test h ad not been nCoV Bedside (test FDA clear ed or approved; code = FOMSY67PANZZ) This te sthas been authorized by F [...] and/o r diagnosis of CO VID-19 under Bkefbio93 4(b)(1) of the Act, 21 U.S .C. 360bbb-3(b)(1), unless theauthorizatio n is terminated or r evoked sooner. Is patient requiring admission or transfer? YIndication for rapid COVID-9 testing: Mod Clinical Suspicion- XR CHEST 1 [id number] 17:48:00Patient Name: JANIS CRAWFORD Unit No: [id number] EXAMS: CPT CODE: [id number] XR CHEST 1 V 58199 EXAM: Chest one view. Location: A1 HISTORY: [...] 07/03/2020 (1747) by:[email or web address] Electronic Signature Date/Time: 07/03/2020 (174)Orig Print D/T: S: 07/03/2020 (175) Name: JANIS CRAWFORD [facility] [place] Phys: [place] [address] : 1960 Age: 59 Sex: [place] [address] Loc: [place].ERTELE Exam Date: 07/03/2020 Status: ADM IN PH: FAX: PAGE 1 Signed ReportCBC W/MANUAL [id number] 16:35:00 Test Item Value Reference Range Interpretation [...] MORPH NORMAL code = PLTMORPH) CBC W/MANUAL [id number] 16:34:00 Test Item Value Reference Range Interpretation [...] (test code NORMAL = PLTMORPH) CBC W/MANUAL [id number] 16:34:00 Test Item Value Reference Range Interpretation [...] MORPHOLOGY (test code NORMAL = PLTMORPH) LACTIC [id number] 16:15:00 Test Item Value Reference Range Interpretation Comments LACTIC ACID (test 2.5 mmol/L 0.4-2.0 H Elevated L actate code = LACT) reported to the following Caregiver:Full Name/Title: RELL POSADA/James GALINDO, on 07/03/20, @ 161 5 BASIC METABOLIC [id number] 16:00:00 Test Item Value Reference Range Interpretation [...] N = CA) - CT HEAD/BRAIN W/O [id number] 19:08:00Patient Name: JANIS CRAWFORD Unit No: [id number] EXAMS: CPT CODE: [id number] CT HEAD/BRAIN W/O CONT 09236 LOCATION: H43 EXAM: CT HEAD WO CONTRAST HISTORY: Status post fall. TECHNIQUE: Axial imaging the brain from skull base to the vertex without the administration of intravenous contrast. Sagittal and Coronal reconstructions. CT scan performed using appropriate/available dose optimization/reduction techniques. VIQ023.7 m Gy*cm COMPARISON: None. FINDINGS: There is [...] by: Celina Harden MD Name: JANIS CRAWFORD [facility] [place] Phys: STRyan - Jaclyn Nelson [address] [facility] : Age: 59 Sex: [place] [address] Loc: [place].ERS Exam Date: 06/04/2020 Status: REG ER PH: FAX: PAGE 1 Signed Report (CONTINUED) Patient Name: JANIS CRAWFORD Unit No: [id number] EXAMS: CPT CODE: [id number] CT HEAD/BRAIN W/O CONT 81487 <Continued> CC: Kayley Belcher DO; Jaclyn Nelson [employer] SYSTEM[employer] ADMINISTRATOR Technologist: Katia Stevens; Dee Henderson CTDI: 49.60 DLP: 938.7 Trscr Dt/Tm: 06/04/2020 (1907) by:[email or web address] Electronic Signature Date/Time: 06/04/2020 (1907)Orig Print D/T: S: 06/04/2020 (1910) Name: JANIS CARWFORD [facility] [place] Phys: STE - Jaclyn Nelson [address] [facility] : 1960 Age: 59 Sex: [place] [address] Loc: [place].ERS Exam Date: 06/04/2020 Status: REG ER PH: FAX: PAGE 2 Signed Report COMPREHENSIVE METABOLIC [id number] 18:53:00 Test Item Value Reference Range Interpretation [...] PHOSPHATASE (test code = ALKP) COMPREHENSIVE METABOLIC [id number] 18:44:00 Test Item Value Reference Range Interpretation [...] code = U/L 45-117 ALKP) CBC W/AUTO [id number] 18:33:00 Test Item Value Reference Range Interpretation [...] BA#) 0.04 10 3/uL 0.0-0.1 N Urine [id number] 08:19:18No growth at 2 days.Blood [id number] 06:01:35 Test Item Value Reference Range Interpretation [...] by: hamilton steven/rolf 04/04/20 08:34:59 lg POC [id number] 22:18:13 Test Item Value Reference Range Interpretation Comments Glucose POC (test 139 mg/dL 74-106 H POC Glucos e used on code = Glucose POC) critical ly ill patients is considered " off-label use" and has no t been cleared or appr zuly by the FDA. Altern ative testing methods should be considered i f the patient is crit ically ill. POC [id number] 18:21:08 Test Item Value Reference Range Interpretation Comments Glucose POC (test 140 mg/dL 74-106 H POC Glucos e used on code = Glucose POC) critical ly ill patients is considered " off-label use" and has no t been cleared or appr zuly by the FDA. Altern ative testing methods should be considered i f the patient is crit ically ill. POC [id number] 17:08:01 Test Item Value Reference Range Interpretation Comments Glucose POC (test 150 mg/dL 74-106 H POC Glucos e used on code = Glucose POC) critical ly ill patients is considered " off-label use" and has no t been cleared or appr zuly by the FDA. Altern ative testing methods should be considered i f the patient is crit ically ill. Novel Coronavirus SARS-CoV-2, [id number] 17:07:53 Test Item Value Reference Range Interpretation [...] Drug Administration s Emergency Use Authorization. POC [id number] 14:12:08 Test Item Value Reference Range Interpretation Comments Glucose POC (test 157 mg/dL 74-106 H POC Glucos e used on code = Glucose POC) critical ly ill patients is considered " off-label use" and has no t been cleared or appr zuly by the FDA. Altern ative testing methods should be considered i f the patient is crit ically ill. POC [id number] 11:30:53 Test Item Value Reference Range Interpretation Comments Glucose POC (test 167 mg/dL 74-106 H POC Glucos e used on code = Glucose POC) critical ly ill patients is considered " off-label use" and has no t been cleared or appr zuly by the FDA. Altern ative testing methods should be considered i f the patient is crit ically ill. POC G3+ [id number] 09:51:24 Test Item Value Reference Range Interpretation [...] VT (cc)) 500.0 N Red Blood Cells [id number] 09:49:37 Test Item Value Reference Range Interpretation Comments # of Units (test code = 1 N # of Units) RBC Trn Reason (test High risk, even if N code = RBC Trn Reason) Hgb > 7 RBC Product Ready (test RBC Ready code = RBC Product Ready) XR Chest 1 View [id number] 09:01:31Patient: JANIS PATTERSON Date/Time04/02/2020 06:40 CDTReason for [...] Valdez Joseph ASigned (Electronic Signature): 04/02/2020 9:01 [id number] 08:55:25 Test Item Value Reference Range Interpretation Comments Previous History (test code Yes Prev History = Previous History) BBID (test code = BBID) [id number] Methodology (test code = Ortho-Vision(OV) Methodology) Anti-A (test code = Anti-A) 4+ Anti-B (test code = Anti-B) 4+ Anti-D (test code = Anti-D) 4+ DCon (test code = DCon) 0 A1 (test code = A1) 0 B cells (test code = B 0 cells) ABORh (test code = ABORh) AB POS 2C [id number] 08:55:25 Test Item Value Reference Range Interpretation Comments Methodology (test code = Ortho-Vision(OV) Methodology) SC1 (test code = SC1) 0 SC2 (test code = SC2) 0 Antibody Screen (2C) (test Negative ABSC code = Antibody Screen (2C)) POC [id number] 08:32:55 Test Item Value Reference Range Interpretation [...] crit ically ill. Respiratory Culture w/ Gram [id number] 08:32:10 Test Item Value Reference Range Interpretation [...] Gram Stain Cocci Report) Prothrombin Time and [id number] 08:12:21 Test Item Value Reference Range Interpretation Comments Prothrombin Time (test code = 12.7 seconds 9.2-12.0 H Prothrombin Time) INR (test code = INR) 1.2 ratio 0.9-1.2 [id number] 08:10:04 Test Item Value Reference Range Interpretation Comments RBC Morph (test code = RBC As Indicated Normal A Morph) Anisocyte (test code = 2+ A Anisocyte) Hypochromia (test code = 2+ A Hypochromia) Plt Estimation (test code = Plt Decreased Normal A Estimation) POC [id number] 06:20:00 Test Item Value Reference Range Interpretation Comments Glucose POC (test 181 mg/dL 74-106 H POC Glucos e used on code = Glucose POC) critical ly ill patients is considered " off-label use" and has no t been cleared or appr zuly by the FDA. Altern ative testing methods should be considered i f the patient is crit ically ill. POC [id number] 06:19:59 Test Item Value Reference Range Interpretation Comments Glucose POC (test 184 mg/dL 74-106 H POC Glucos e used on code = Glucose POC) critical ly ill patients is considered " off-label use" and has no t been cleared or appr zuly by the FDA. Altern ative testing methods should be considered i f the patient is crit ically ill. POC [id number] 06:19:59 Test Item Value Reference Range Interpretation Comments Glucose POC (test 178 mg/dL 74-106 H POC Glucos e used on code = Glucose POC) critical ly ill patients is considered " off-label use" and has no t been cleared or appr zuly by the FDA. Altern ative testing methods should be considered i f the patient is crit ically ill. Procalcitonin [id number] 05:00:07 Test Item Value Reference Range Interpretation [...] sepsi s or septic shock. Comprehensive Metabolic [id number] 04:45:15 Test Item Value Reference Range Interpretation [...] 33 mL/min/1.73 m2 N AA) Comprehensive Metabolic [id number] 04:45:15 Test Item Value Reference Range Interpretation [...] eGFR 33 mL/min/1.73 m2 N AA) Lipase [id number] 04:45:15 Test Item Value Reference Range Interpretation Comments Lipase Level (test code = 133 IntlUnit/L 73-393 Lipase Level) Magnesium [id number] 04:45:15 Test Item Value Reference Range Interpretation Comments Magnesium Level (test code = 1.8 mg/dL 1.6-2.6 Magnesium Level) Thyroid Stimulating [id number] 04:45:15 Test Item Value Reference Range Interpretation Comments TSH (test code = TSH) 0.514 IntlUnit/mL 0.358-3.740 Pro B Natriuretic [id number] 04:45:15 Test Item Value Reference Range Interpretation Comments NT-proBNP (test 54668 pg/mL 0-125 H < 300 pg/ml - heart code = NT-proBNP) failure un likelyAge less than 50 years, > 450 pg/ml - heart f ailure lilkelyAge 50 - 75 years, > 900 pg /ml - heart failure l ikelyAge greater than 75 years, > 1800 pg/ml - he art failure likely Comprehensive Metabolic [id number] 04:45:15 Test Item Value Reference Range Interpretation [...] mL/min/1.73 m2 N eGFR Non-AA) Partial Thromboplastin [id number] 04:29:37 Test Item Value Reference Range Interpretation Comments Partial Thromboplastin 30.7 seconds 24.0-35.0 APTT Heparin Time (test code = Therapeuti c Range: Partial Thromboplastin 47.9- 80.4 seconds Time) Complete Blood Count with [id number] 04:29:19 Test Item Value Reference Range Interpretation [...] Smear N code = Slide Review) Automated [id number] 04:29:19 Test Item Value Reference Range Interpretation Comments Neutro Auto (test code = Neutro 72.2 % N Auto) Lymph Auto (test code = Lymph Auto) 20.0 % N [place] Auto (test code = [place] Auto) 5.0 % N Eos, Auto (test code = Eos, Auto) 2.4 % N Basophil Auto (test code = Basophil 0.4 % N Auto) Neutro Absolute (test code = Neutro 13.7 x10 2.7-7.3 H Absolute) Lymph Absolute (test code = Lymph 3.8 x10 0.8-3.5 H Absolute) [place] Absolute (test code = [place] 0.9 x10 0.3-0.9 Absolute) Eos Absolute (test code = Eos 0.5 x10 0.0-0.3 H Absolute) Baso Absolute (test code = Baso 0.1 x10 0.0-0.1 Absolute) Ammonia [id number] 04:25:10 Test Item Value Reference Range Interpretation Comments Ammonia Level (test code = Ammonia 44 mmol/L 19-54 Level) POC [id number] 02:23:52 Test Item Value Reference Range Interpretation Comments Glucose POC (test 192 mg/dL 74-106 H POC Glucos e used on code = Glucose POC) critical ly ill patients is considered " off-label use" and has no t been cleared or appr zuly by the FDA. Altern ative testing methods should be considered i f the patient is crit ically ill. POC [id number] 01:09:42 Test Item Value Reference Range Interpretation Comments Glucose POC (test 197 mg/dL 74-106 H POC Glucos e used on code = Glucose POC) critical ly ill patients is considered " off-label use" and has no t been cleared or appr zuly by the FDA. Altern ative testing methods should be considered i f the patient is crit ically ill. POC [id number] 01:09:42 Test Item Value Reference Range Interpretation Comments Glucose POC (test 202 mg/dL 74-106 H POC Glucos e used on code = Glucose POC) critical ly ill patients is considered " off-label use" and has no t been cleared or appr zuly by the FDA. Altern ative testing methods should be considered i f the patient is crit ically ill. POC [id number] 01:09:40 Test Item Value Reference Range Interpretation Comments Glucose POC (test 209 mg/dL 74-106 H POC Glucos e used on code = Glucose POC) critical ly ill patients is considered " off-label use" and has no t been cleared or appr zuly by the FDA. Altern ative testing methods should be considered i f the patient is crit ically ill. POC [id number] 01:09:39 Test Item Value Reference Range Interpretation Comments Glucose POC (test 177 mg/dL 74-106 H POC Glucos e used on code = Glucose POC) critical ly ill patients is considered " off-label use" and has no t been cleared or appr zuly by the FDA. Altern ative testing methods should be considered i f the patient is crit ically ill. POC [id number] 01:09:38 Test Item Value Reference Range Interpretation Comments Glucose POC (test 133 mg/dL 74-106 H POC Glucos e used on code = Glucose POC) critical ly ill patients is considered " off-label use" and has no t been cleared or appr zuly by the FDA. Altern ative testing methods should be considered i f the patient is crit ically ill. POC [id number] 01:09:37 Test Item Value Reference Range Interpretation Comments Glucose POC (test 122 mg/dL 74-106 H POC Glucos e used on code = Glucose POC) critical ly ill patients is considered " off-label use" and has no t been cleared or appr zuly by the FDA. Altern ative testing methods should be considered i f the patient is crit ically ill. POC [id number] 01:09:36 Test Item Value Reference Range Interpretation Comments Glucose POC (test 106 mg/dL 74-106 POC Glucos e used on code = Glucose POC) critical ly ill patients is considered " off-label use" and has no t been cleared or appr zuly by the FDA. Altern ative testing methods should be considered i f the patient is crit ically ill. POC [id number] 18:14:16 Test Item Value Reference Range Interpretation Comments Glucose POC (test 114 mg/dL 74-106 H POC Glucos e used on code = Glucose POC) critical ly ill patients is considered " off-label use" and has no t been cleared or appr zuly by the FDA. Altern ative testing methods should be considered i f the patient is crit ically ill. POC [id number] 16:34:02 Test Item Value Reference Range Interpretation Comments Glucose POC (test 125 mg/dL 74-106 H POC Glucos e used on code = Glucose POC) critical ly ill patients is considered " off-label use" and has no t been cleared or appr zuly by the FDA. Altern ative testing methods should be considered i f the patient is crit ically ill. Basic Metabolic [id number] 15:04:15 Test Item Value Reference Range Interpretation [...] 8.0 mg/dL 8.5-10.1 L Level) Basic Metabolic [id number] 15:04:15 Test Item Value Reference Range Interpretation [...] mL/min/1.73 m2 N eGFR Non-AA) Basic Metabolic [id number] 15:04:15 Test Item Value Reference Range Interpretation [...] 24 mL/min/1.73 m2 N eGFR Non-AA) POC [id number] 14:39:00 Test Item Value Reference Range Interpretation Comments Glucose POC (test 150 mg/dL 74-106 H POC Glucos e used on code = Glucose POC) critical ly ill patients is considered " off-label use" and has no t been cleared or appr zuly by the FDA. Altern ative testing methods should be considered i f the patient is crit ically ill. [id number] 14:36:42 Test Item Value Reference Range Interpretation Comments Acetone (Ketones) (test code = Negative Negative Acetone (Ketones)) POC [id number] 13:00:16 Test Item Value Reference Range Interpretation Comments Glucose POC (test 153 mg/dL 74-106 H POC Glucos e used on code = Glucose POC) critical ly ill patients is considered " off-label use" and has no t been cleared or appr zuly by the FDA. Altern ative testing methods should be considered i f the patient is crit ically ill. POC [id number] 11:05:01 Test Item Value Reference Range Interpretation Comments Glucose POC (test 189 mg/dL 74-106 H POC Glucos e used on code = Glucose POC) critical ly ill patients is considered " off-label use" and has no t been cleared or appr zuly by the FDA. Altern ative testing methods should be considered i f the patient is crit ically ill. POC [id number] 10:28:41 Test Item Value Reference Range Interpretation Comments Glucose POC (test 208 mg/dL 74-106 H POC Glucos e used on code = Glucose POC) critical ly ill patients is considered " off-label use" and has no t been cleared or appr zuly by the FDA. Altern ative testing methods should be considered i f the patient is crit ically ill. Automated [id number] 09:37:36 Test Item Value Reference Range Interpretation Comments Neutro Auto (test code = Neutro 76.5 % N Auto) Lymph Auto (test code = Lymph Auto) 18.8 % N [place] Auto (test code = [place] Auto) 4.5 % N Eos, Auto (test code = Eos, Auto) 0.0 % N Basophil Auto (test code = Basophil 0.2 % N Auto) Neutro Absolute (test code = Neutro 13.4 x10 2.7-7.3 H Absolute) Lymph Absolute (test code = Lymph 3.3 x10 0.8-3.5 Absolute) [place] Absolute (test code = [place] 0.8 x10 0.3-0.9 Absolute) Eos Absolute (test code = Eos 0.0 x10 0.0-0.3 Absolute) Baso Absolute (test code = Baso 0.0 x10 0.0-0.1 Absolute) POC [id number] 09:18:07 Test Item Value Reference Range Interpretation Comments Glucose POC (test 216 mg/dL 74-106 H POC Glucos e used on code = Glucose POC) critical ly ill patients is considered " off-label use" and has no t been cleared or appr zuly by the FDA. Altern ative testing methods should be considered i f the patient is crit ically ill. POC [id number] 08:09:31 Test Item Value Reference Range Interpretation Comments Glucose POC (test 209 mg/dL 74-106 H POC Glucos e used on code = Glucose POC) critical ly ill patients is considered " off-label use" and has no t been cleared or appr zuly by the FDA. Altern ative testing methods should be considered i f the patient is crit ically ill. Prothrombin Time and [id number] 07:10:51 Test Item Value Reference Range Interpretation Comments Prothrombin Time (test code = 24.6 seconds 9.2-12.0 H Prothrombin Time) INR (test code = INR) 2.4 ratio 0.9-1.2 H POC [id number] 07:09:31 Test Item Value Reference Range Interpretation Comments Glucose POC (test 214 mg/dL 74-106 H POC Glucos e used on code = Glucose POC) critical ly ill patients is considered " off-label use" and has no t been cleared or appr zuly by the FDA. Altern ative testing methods should be considered i f the patient is crit ically ill. Partial Thromboplastin [id number] 06:59:00 Test Item Value Reference Range Interpretation Comments Partial Thromboplastin 39.3 seconds 24.0-35.0 H APTT Heparin Time (test code = Therapeuti c Range: Partial Thromboplastin 47.9- 80.4 seconds Time) Haptoglobin [id number] 06:11:38<10Performed At: [facility] [id number] Sanjai MD Ph:[phone] Glucose 2020-04-01 06:07:13 Test Item Value Reference Range Interpretation Comments Glucose POC (test 204 mg/dL 74-106 H POC Glucos e used on code = Glucose POC) critical ly ill patients is considered " off-label use" and has no t been cleared or appr zuly by the FDA. Altern ative testing methods should be considered i f the patient is crit ically ill. POC [id number] 06:07:12 Test Item Value Reference Range Interpretation Comments Glucose POC (test 238 mg/dL 74-106 H POC Glucos e used on code = Glucose POC) critical ly ill patients is considered " off-label use" and has no t been cleared or appr zuly by the FDA. Altern ative testing methods should be considered i f the patient is crit ically ill. POC [id number] 06:07:11 Test Item Value Reference Range Interpretation Comments Glucose POC (test 269 mg/dL 74-106 H POC Glucos e used on code = Glucose POC) critical ly ill patients is considered " off-label use" and has no t been cleared or appr zuly by the FDA. Altern ative testing methods should be considered i f the patient is crit ically ill. Comprehensive Metabolic [id number] 04:53:13 Test Item Value Reference Range Interpretation [...] = AST) 111 IntlUnit/L 15-37 H Lipase [id number] 04:53:13 Test Item Value Reference Range Interpretation Comments Lipase Level (test code = 228 IntlUnit/L 73-393 Lipase Level) Comprehensive Metabolic [id number] 04:53:13 Test Item Value Reference Range Interpretation [...] 29 mL/min/1.73 m2 N AA) Comprehensive Metabolic [id number] 04:53:13 Test Item Value Reference Range Interpretation [...] eGFR Non-AA) Complete Blood Count with Man [id number] 04:39:50 Test Item Value Reference Range Interpretation [...] = 38 x10 140-440 [facility] Platelets) 04/01/2020 04: 39:44 CDT/lrj MPV (test code = MPV) 6.8 fL 7.5-11.2 L POC [id number] 03:06:47 Test Item Value Reference Range Interpretation Comments Glucose POC (test 320 mg/dL 74-106 H POC Glucos e used on code = Glucose POC) critical ly ill patients is considered " off-label use" and has no t been cleared or appr zuly by the FDA. Altern ative testing methods should be considered i f the patient is crit ically ill. POC [id number] 02:45:11 Test Item Value Reference Range Interpretation Comments Glucose POC (test 364 mg/dL 74-106 H POC Glucos e used on code = Glucose POC) critical ly ill patients is considered " off-label use" and has no t been cleared or appr zuly by the FDA. Altern ative testing methods should be considered i f the patient is crit ically ill. POC [id number] 02:45:10 Test Item Value Reference Range Interpretation Comments Glucose POC (test 418 mg/dL 74-106 Notifie dPOC Glucose code = Glucose POC) used on critically ill patients is con sidered "off-label use" and has not been cleare d or approved by the FDA. Alternative moisés ting methods should be considered if t he patient is crit ically ill. XR Chest 1 View [id number] 01:58:04Patient: JANIS PATTERSON Date/Time04/01/2020 01:05 CDTReason for [...] the right lung, suggestive of pneumonia.RL: [id number]: [id number] signed by Jazlyn Le MD, PhD at 04/01/2020 2:00 AM FinalDictated by: Contributor_system, PSCRIBE_CTZDictated DT/TM: 04/01/2020 2:01 amSigned by: MD Dawson, Jazlyn GSigned (Electronic Signature): 04/01/2020 1:58 amPOC G3+ [id number] 01:42:00 Test Item Value Reference Range Interpretation [...] code = VT (cc)) 500.0 N POC [id number] 22:44:29 Test Item Value Reference Range Interpretation Comments Glucose POC (test 477 mg/dL 74-106 Notifie dPOC Glucose code = Glucose POC) used on critically ill patients is con sidered "off-label use" and has not been cleare d or approved by the FDA. Alternative moisés ting methods should be considered if t he patient is crit ically ill. POC [id number] 21:40:39 Test Item Value Reference Range Interpretation Comments Glucose POC (test 523 mg/dL 74-106 Ordered La b DrawPOC code = Glucose POC) Glucose used on critically ill patients is considered " off-label use" and has no t been cleared or appr zuly by the FDA. Altern ative testing methods should be considered i f the patient is crit ically ill. POC [id number] 21:40:38 Test Item Value Reference Range Interpretation Comments Glucose POC (test 538 mg/dL 74-106 Result Not ConfirmedPOC code = Glucose POC) Glucose used on critically ill patients is considered " off-label use" and has no t been cleared or appr zuly by the FDA. Altern ative testing methods should be considered i f the patient is crit ically ill. POC [id number] 21:40:37 Test Item Value Reference Range Interpretation Comments Glucose POC (test 593 mg/dL 74-106 Result Not ConfirmedPOC code = Glucose POC) Glucose used on critically ill patients is considered " off-label use" and has no t been cleared or appr zuly by the FDA. Altern ative testing methods should be considered i f the patient is crit ically ill. XR Chest 1 View [id number] 20:42:40Patient: JANIS PATTERSON Date/Time03/31/2020 20:35 CDTReason for [...] Moreno (Electronic Signature): 03/31/2020 8:42 pmPOC G3+ [id number] 20:26:58 Test Item Value Reference Range Interpretation [...] = R Radial N Performing Site) POC [id number] 19:50:11 Test Item Value Reference Range Interpretation Comments Glucose POC (test 482 mg/dL 74-106 Result Not ConfirmedPOC code = Glucose POC) Glucose used on critically ill patients is considered " off-label use" and has no t been cleared or appr zuly by the FDA. Altern ative testing methods should be considered i f the patient is crit ically ill. POC [id number] 19:50:09 Test Item Value Reference Range Interpretation Comments Glucose POC (test 501 mg/dL 74-106 MD Jordan dPPEDRO Glucose code = Glucose POC) used on critically ill patients is con sidered "off-label use" and has not been cleare d or approved by the FDA. Alternative moisés ting methods should be considered if t he patient is crit ically ill. POC [id number] 19:50:08 Test Item Value Reference Range Interpretation Comments Glucose POC (test 484 mg/dL 74-106 MD Jordan dPPEDRO Glucose code = Glucose POC) used on critically ill patients is con sidered "off-label use" and has not been cleare d or approved by the FDA. Alternative moisés ting methods should be considered if t he patient is crit ically ill. POC [id number] 19:50:06 Test Item Value Reference Range Interpretation Comments Glucose POC (test 436 mg/dL 74-106 MD Nikki Stokes Glucose code = Glucose POC) used on critically ill patients is con sidered "off-label use" and has not been cleare d or approved by the FDA. Alternative moisés ting methods should be considered if t he patient is crit ically ill. POC [id number] 17:18:46 Test Item Value Reference Range Interpretation Comments Glucose POC (test 416 mg/dL 74-106 Result Not ConfirmedPOC code = Glucose POC) Glucose used on critically ill patients is considered " off-label use" and has no t been cleared or appr zuly by the FDA. Altern ative testing methods should be considered i f the patient is crit ically ill. Red Blood Cells [id number] 10:21:34 Test Item Value Reference Range Interpretation Comments # of Units (test 1 N code = # of Units) RBC Trn Reason High risk, even N (test code = RBC if Hgb > 7 Trn Reason) RBC Product Ready RBC Ready 03/31/2020 10:21 (test code = RBC OATISJUCALL ED TO Product Ready) MAE [id number] 08:40:13 Test Item Value Reference Range Interpretation Comments RBC Morph (test code = RBC As Indicated Normal A Morph) Anisocyte (test code = 2+ A Anisocyte) Hypochromia (test code = 2+ A Hypochromia) Plt Estimation (test code = Plt Decreased Normal A Estimation) Complete Blood Count with Hudnvqobrqqv6804-09-64 08:22:12 Test Item Value Reference Range Interpretation [...] code Smear N = Slide Review) Automated Kpecwqbdhwrr4242-14-62 08:22:12 Test Item Value Reference Range Interpretation Comments Neutro Auto (test code = Neutro Auto) 75.0 % N Lymph Auto (test code = Lymph Auto) 18.9 % N [place] Auto (test code = [place] Auto) 5.3 % N Eos, Auto (test code = Eos, Auto) 0.2 % N Basophil Auto (test code = Basophil 0.6 % N Auto) Neutro Absolute (test code = Neutro 7.8 x10 2.7-7.3 H Absolute) Lymph Absolute (test code = Lymph 2.0 x10 0.8-3.5 Absolute) [place] Absolute (test code = [place] 0.6 x10 0.3-0.9 Absolute) Eos Absolute (test code = Eos 0.0 x10 0.0-0.3 Absolute) Baso Absolute (test code = Baso 0.1 x10 0.0-0.1 Absolute) Lactate [id number] 08:15:14 Test Item Value Reference Range Interpretation Comments LDH (test code = LDH) 1651 IntlUnit/L 84-246 H Basic Metabolic [id number] 07:03:40 Test Item Value Reference Range Interpretation [...] L code = Calcium Level) Basic Metabolic [id number] 07:03:40 Test Item Value Reference Range Interpretation [...] mL/min/1.73 N eGFR AA) m2 Basic Metabolic [id number] 07:03:40 Test Item Value Reference Range Interpretation [...] N code = eGFR Non-AA) m2 POC [id number] 21:51:26 Test Item Value Reference Range Interpretation Comments Glucose POC (test 298 mg/dL 74-106 H POC Glucos e used on code = Glucose POC) critical ly ill patients is considered " off-label use" and has no t been cleared or appr zuly by the FDA. Altern ative testing methods should be considered i f the patient is crit ically ill. Fresh Frozen [id number] 17:22:36 Test Item Value Reference Range Interpretation Comments # of Units (test code = # 2 N of Units) FFP Transfuse Reason TTP, N (test code = FFP Hemolytic-uremic Transfuse Reason) syndrome, or DIC FFP Product Ready (test FFP Ready code = FFP Product Ready) [id number] 16:56:18Patient: JANIS PATTERSON Date/Time03/30/2020 16:33 CDTReason for [...] 03/30/2020 4:56 pmUS Lower Ext Venous Duplex Uwjrnxpsn1850-72-24 16:52:20 Patient: JANIS PATTERSON Date/Time03/30/2020 16:33 CDTReason [...] (Electronic Signature): 03/30/2020 4:52 pmHeparin Induced Platelet [id number] 14:16:060.100Performed At: [facility] [id number] Sanjai MD Ph:[phone] [id number] 13:40:14 Test Item Value Reference Range Interpretation Comments # of Units (test code = 1 N # of Units) PLT Transfuse Reason Plts <50,000 with N (test code = PLT bleeding or procedure Transfuse Reason) Platelet Product Ready PLT Ready (test code = Platelet Product Ready) POC [id number] 12:14:06 Test Item Value Reference Range Interpretation Comments Glucose POC (test 316 mg/dL 74-106 H POC Glucos e used on code = Glucose POC) critical ly ill patients is considered " off-label use" and has no t been cleared or appr zuly by the FDA. Altern ative testing methods should be considered i f the patient is crit ically ill. Ykbczoebvd7473-07-70 09:30:25 Test Item Value Reference Range Interpretation [...] = Plt Decreased Normal A Estimation) DANA [id number] 08:40:11 Test Item Value Reference Range Interpretation Comments Methodology (test code = Test-Tube(TT) Methodology) Poly (test code = Poly) 0 5 " Poly (test code = 5 " Poly) 0 Poly CC (test code = Poly CC) 2+ DANA - Polyspecific (test code = Negative DANA - Polyspecific) Complete Blood Count with Rdqganppgaaq4132-81-26 07:54:03 Test Item Value Reference Range Interpretation Comments WBC (test code = WBC) 9.6 x10 4.8-10.8 RBC (test code = RBC) 2.80 x10 4.20-5.50 L Hgb (test code = Hgb) 8.1 g/dL 12.0-16.0 L Hct (test code = Hct) 23.3 % 35.0-47.0 Result s called to and read back by: WANG HYDE 03/17 07:53:59 CDT MCV (test code = [...] code Smear N = Slide Review) Automated [id number] 07:54:03 Test Item Value Reference Range Interpretation Comments Neutro Auto (test code = Neutro Auto) 58.7 % N Lymph Auto (test code = Lymph Auto) 25.8 % N [place] Auto (test code = [place] Auto) 11.3 % N Eos, Auto (test code = Eos, Auto) 3.4 % N Basophil Auto (test code = Basophil 0.8 % N Auto) Neutro Absolute (test code = Neutro 5.7 x10 2.7-7.3 Absolute) Lymph Absolute (test code = Lymph 2.5 x10 0.8-3.5 Absolute) [place] Absolute (test code = [place] 1.1 x10 0.3-0.9 H Absolute) Eos Absolute (test code = Eos 0.3 x10 0.0-0.3 Absolute) Baso Absolute (test code = Baso 0.1 x10 0.0-0.1 Absolute) D-Dimer [id number] 07:54:03 Test Item Value Reference Range Interpretation Comments D Dimer, 13.68 mg/L FEU .19-.50 H Results chen d to and (Quant.) (test read back by: FABIANO code = D DimerGAURAV RN/COLT 03/30/2020 (Quant.)) 07:53:27 CDTThe D-Dimer assay is [...] is of DVT or PEunlikely. Comprehensive Metabolic [id number] 07:34:37 Test Item Value Reference Range Interpretation [...] = AST) 59 IntlUnit/L 15-37 H Lactate [id number] 07:34:37 Test Item Value Reference Range Interpretation Comments LDH (test code = LDH) 1335 IntlUnit/L 84-246 H Comprehensive Metabolic [id number] 07:34:37 Test Item Value Reference Range Interpretation [...] eGFR 56 mL/min/1.73 m2 N AA) Lipase [id number] 07:34:37 Test Item Value Reference Range Interpretation Comments Lipase Level (test code = 492 IntlUnit/L 73-393 H Lipase Level) Bilirubin [id number] 07:34:37 Test Item Value Reference Range Interpretation Comments Bilirubin Direct (test code = 2.60 mg/dL 0.00-0.20 H Bilirubin Direct) Comprehensive Metabolic [id number] 07:34:37 Test Item Value Reference Range Interpretation [...] 46 mL/min/1.73 m2 N eGFR Non-AA) Reticulocyte [id number] 07:32:16 Test Item Value Reference Range Interpretation Comments Reticulocyte % (test code = 4.6 % 0.5-2.5 H Reticulocyte %) Prothrombin Time and [id number] 06:47:18 Test Item Value Reference Range Interpretation Comments Prothrombin Time (test code = 17.5 seconds 9.2-12.0 H Prothrombin Time) INR (test code = INR) 1.7 ratio 0.9-1.2 H Partial Thromboplastin [id number] 06:47:18 Test Item Value Reference Range Interpretation Comments Partial Thromboplastin 47.6 seconds 24.0-35.0 H APTT Heparin Time (test code = Therapeuti c Range: Partial Thromboplastin 47.9- 80.4 seconds Time) POC [id number] 05:41:33 Test Item Value Reference Range Interpretation Comments Glucose POC (test 292 mg/dL 74-106 H POC Glucos e used on code = Glucose POC) critical ly ill patients is considered " off-label use" and has no t been cleared or appr zuly by the FDA. Altern ative testing methods should be considered i f the patient is crit ically ill. POC [id number] 20:14:35 Test Item Value Reference Range Interpretation Comments Glucose POC (test 194 mg/dL 74-106 H POC Glucos e used on code = Glucose POC) critical ly ill patients is considered " off-label use" and has no t been cleared or appr zuly by the FDA. Altern ative testing methods should be considered i f the patient is crit ically ill. POC [id number] 16:54:44 Test Item Value Reference Range Interpretation Comments Glucose POC (test 205 mg/dL 74-106 H POC Glucos e used on code = Glucose POC) critical ly ill patients is considered " off-label use" and has no t been cleared or appr zuly by the FDA. Altern ative testing methods should be considered i f the patient is crit ically ill. Magnesium [id number] 13:15:11 Test Item Value Reference Range Interpretation Comments Magnesium Level (test code = 1.8 mg/dL 1.6-2.6 Magnesium Level) Platelet [id number] 12:35:33 Test Item Value Reference Range Interpretation Comments # of Units (test code = # of 1 N Units) PLT Transfuse Reason (test code Plts <20,000 N = PLT Transfuse Reason) Platelet Product Ready (test PLT Ready code = Platelet Product Ready) Red Blood Cells Fykyggeoykji0385-39-15 12:35:32 Test Item Value Reference Range Interpretation Comments # of Units (test code = 1 N # of Units) RBC Trn Reason (test High risk, even if N code = RBC Trn Reason) Hgb > 7 RBC Product Ready (test RBC Ready code = RBC Product Ready) [id number] 12:27:50 Test Item Value Reference Range Interpretation Comments Previous History (test code Yes Prev History = Previous History) BBID (test code = BBID) [id number] Methodology (test code = Ortho-Vision(OV) Methodology) Anti-A (test code = Anti-A) 4+ Anti-B (test code = Anti-B) 4+ Anti-D (test code = Anti-D) 4+ DCon (test code = DCon) 0 A1 (test code = A1) 0 B cells (test code = B 0 cells) ABORh (test code = ABORh) AB POS 2C [id number] 12:27:50 Test Item Value Reference Range Interpretation Comments Methodology (test code = Ortho-Vision(OV) Methodology) SC1 (test code = SC1) 0 SC2 (test code = SC2) 0 Antibody Screen (2C) (test Negative ABSC code = Antibody Screen (2C)) POC [id number] 11:15:10 Test Item Value Reference Range Interpretation Comments Glucose POC (test 230 mg/dL 74-106 H POC Glucos e used on code = Glucose POC) critical ly ill patients is considered " off-label use" and has no t been cleared or appr zuly by the FDA. Altern ative testing methods should be considered i f the patient is crit ically ill. Comprehensive Metabolic [id number] 09:26:11 Test Item Value Reference Range Interpretation [...] AST) 54 IntlUnit/L 15-37 H Comprehensive Metabolic [id number] 09:26:11 Test Item Value Reference Range Interpretation [...] eGFR 56 mL/min/1.73 m2 N AA) Lipase [id number] 09:26:11 Test Item Value Reference Range Interpretation Comments Lipase Level (test code = 466 IntlUnit/L 73-393 H Lipase Level) Comprehensive Metabolic [id number] 09:26:11 Test Item Value Reference Range Interpretation [...] = 46 mL/min/1.73 m2 N eGFR Non-AA) [id number] 09:25:40 Test Item Value Reference Range Interpretation [...] Normal A Estimation) Complete Blood Count with Tkkxicwkucjc3275-22-75 09:06:53 Test Item Value Reference Range Interpretation Comments WBC (test code = WBC) 9.0 x10 4.8-10.8 RBC (test code = RBC) 2.64 x10 4.20-5.50 L Hgb (test code = Hgb) 7.7 g/dL 12.0-16.0 CTRB Dante CUNHA Marj03/29/2020 09:05:38 CDT/PN Hct (test code = Hct) 22.5 % 35.0-47.0 CTRB Dante ALPHONSE Mcmahan03/29/2020 09:05:38 CDT/PN MCV (test code [...] code Smear N = Slide Review) Automated [id number] 09:06:53 Test Item Value Reference Range Interpretation Comments Neutro Auto (test code = Neutro Auto) 57.9 % N Lymph Auto (test code = Lymph Auto) 27.6 % N [place] Auto (test code = [place] Auto) 10.6 % N Eos, Auto (test code = Eos, Auto) 3.1 % N Basophil Auto (test code = Basophil 0.8 % N Auto) Neutro Absolute (test code = Neutro 5.2 x10 2.7-7.3 Absolute) Lymph Absolute (test code = Lymph 2.5 x10 0.8-3.5 Absolute) [place] Absolute (test code = [place] 1.0 x10 0.3-0.9 H Absolute) Eos Absolute (test code = Eos 0.3 x10 0.0-0.3 Absolute) Baso Absolute (test code = Baso 0.1 x10 0.0-0.1 Absolute) XR Abdomen 2 [id number] 09:00:16Patient: JANIS PATTERSON Date/Time03/29/2020 08:22 CDTReason for [...] Errol, SamerSigned (Electronic Signature): 03/29/2020 9:00 amPOC [id number] 06:10:33 Test Item Value Reference Range Interpretation Comments Glucose POC (test 235 mg/dL 74-106 H POC Glucos e used on code = Glucose POC) critical ly ill patients is considered " off-label use" and has no t been cleared or appr zuly by the FDA. Altern ative testing methods should be considered i f the patient is crit ically ill. Blood [id number] 06:01:42No growth at 5 days.POC [id number] 22:16:26 Test Item Value Reference Range Interpretation Comments Glucose POC (test 212 mg/dL 74-106 H POC Glucos e used on code = Glucose POC) critical ly ill patients is considered " off-label use" and has no t been cleared or appr zuly by the FDA. Altern ative testing methods should be considered i f the patient is crit ically ill. POC [id number] 15:35:25 Test Item Value Reference Range Interpretation Comments Glucose POC (test 167 mg/dL 74-106 H POC Glucos e used on code = Glucose POC) critical ly ill patients is considered " off-label use" and has no t been cleared or appr zuly by the FDA. Altern ative testing methods should be considered i f the patient is crit ically ill. POC [id number] 11:00:02 Test Item Value Reference Range Interpretation Comments Glucose POC (test 159 mg/dL 74-106 H POC Glucos e used on code = Glucose POC) critical ly ill patients is considered " off-label use" and has no t been cleared or appr zuly by the FDA. Altern ative testing methods should be considered i f the patient is crit ically ill. XR Abdomen 2 [id number] 09:30:43Patient: JANIS PATTERSON Date/Time03/28/2020 08:55 CDTReason for [...] Errol, SamerSigned (Electronic Signature): 03/28/2020 9:30 amPOC [id number] 07:05:07 Test Item Value Reference Range Interpretation Comments Glucose POC (test 202 mg/dL 74-106 H POC Glucos e used on code = Glucose POC) critical ly ill patients is considered " off-label use" and has no t been cleared or appr zuly by the FDA. Altern ative testing methods should be considered i f the patient is crit ically ill. Ktuqfgndvu0782-26-72 04:19:33 Test Item Value Reference Range Interpretation [...] = Decreased Normal A Plt Estimation) POC Busmxgh7268-72-17 03:59:30 Test Item Value Reference Range Interpretation Comments Glucose POC (test 210 mg/dL 74-106 H POC Glucos e used on code = Glucose POC) critical ly ill patients is considered " off-label use" and has no t been cleared or appr zuly by the FDA. Altern ative testing methods should be considered i f the patient is crit ically ill. Comprehensive Metabolic [id number] 03:56:15 Test Item Value Reference Range Interpretation [...] = AST) 42 IntlUnit/L 15-37 H Lipase Ujjgo0912-31-41 03:56:15 Test Item Value Reference Range Interpretation Comments Lipase Level (test code = 626 IntlUnit/L 73-393 H Lipase Level) Comprehensive Metabolic Ptiae0826-64-22 03:56:15 Test Item Value Reference Range Interpretation [...] eGFR 56 mL/min/1.73 m2 N AA) Magnesium Jvxgv2007-85-76 03:56:15 Test Item Value Reference Range Interpretation Comments Magnesium Level (test code = 1.3 mg/dL 1.6-2.6 L Magnesium Level) Comprehensive Metabolic [id number] 03:56:15 Test Item Value Reference Range Interpretation [...] m2 N eGFR Non-AA) Prothrombin Time and [id number] 03:49:01 Test Item Value Reference Range Interpretation Comments Prothrombin Time (test code = 17.1 seconds 9.2-12.0 H Prothrombin Time) INR (test code = INR) 1.7 ratio 0.9-1.2 H Partial Thromboplastin [id number] 03:49:01 Test Item Value Reference Range Interpretation Comments Partial Thromboplastin 48.4 seconds 24.0-35.0 H APTT Heparin Time (test code = Therapeuti c Range: Partial Thromboplastin 47.9- 80.4 seconds Time) Complete Blood Count with Ddwhitbhspbo5008-68-37 03:44:12 Test Item Value Reference Range Interpretation [...] nel estinoza Platelets) / rn / li 5/12/ 2020 03:44:08 CDT MPV (test code = MPV) 7.7 fL 7.5-11.2 Slide Review (test code Smear N = Slide Review) Automated Jfqcewwphnao7415-85-32 03:44:12 Test Item Value Reference Range Interpretation Comments Neutro Auto (test code = Neutro Auto) 64.6 % N Lymph Auto (test code = Lymph Auto) 21.7 % N [place] Auto (test code = [place] Auto) 10.0 % N Eos, Auto (test code = Eos, Auto) 2.8 % N Basophil Auto (test code = Basophil 0.9 % N Auto) Neutro Absolute (test code = Neutro 7.3 x10 2.7-7.3 Absolute) Lymph Absolute (test code = Lymph 2.4 x10 0.8-3.5 Absolute) [place] Absolute (test code = [place] 1.1 x10 0.3-0.9 H Absolute) Eos Absolute (test code = Eos 0.3 x10 0.0-0.3 Absolute) Baso Absolute (test code = Baso 0.1 x10 0.0-0.1 Absolute) POC Intvqfz9317-55-23 00:10:36 Test Item Value Reference Range Interpretation [...] crit ically ill. Actin (Smooth Muscle) Antibody [id number] 17:12:1911 Negative 0 - 19 Weak positive 20 - 30 Moderate to strong positive >30 Actin Antibodies are found in 52-85% of patients with autoimmune hepatitis or chronic active hepatitis and in 22% of patients with primary biliary cirrhosis.Performed At: [facility] [id number] MD Ph:[phone] (M2) Antibody [id number] 17:12:19<20.0 Negative 0.0 - 20.0 Equivocal 20.1 - 24.9 Positive >24.9 Mitochondrial (M2) Antibodies are found in 90-96% ofpatients with primary biliary cirrhosis.Performed At: [facility] [id number] Sanjai MD Ph:[phone] Abdomen and Pelvis w/o Contrast 2020-03-27 16:09:24Patient: [...] DT/TM: 03/27/2020 4:02 pmSigned by: MD Ramiro, Huagndebby (Electronic Signature): 03/27/2020 4:09 pm Prothrombin Time and [id number] 13:27:24 Test Item Value Reference Range Interpretation Comments Prothrombin Time (test code = 16.7 seconds 9.2-12.0 H Prothrombin Time) INR (test code = INR) 1.6 ratio 0.9-1.2 H Waqgjiywqe8241-18-74 13:26:22 Test Item Value Reference Range Interpretation Comments RBC Morph (test code = RBC As Indicated Normal A Morph) Anisocyte (test code = 1+ A Anisocyte) Hypochromia (test code = 2+ A Hypochromia) Poik (test code = Poik) 1+ A Schistocytes (test code = 1+ A Schistocytes) Plt Estimation (test code = Plt Decreased Normal A Estimation) Complete Blood Count with Nowoanrbedma0176-71-94 13:24:14 Test Item Value Reference Range Interpretation [...] code = Slide Smear N Review) POC Oquiffc1774-01-15 12:54:28 Test Item Value Reference Range Interpretation Comments Glucose POC (test 204 mg/dL 74-106 H POC Glucos e used on code = Glucose POC) critical ly ill patients is considered " off-label use" and has no t been cleared or appr zuly by the FDA. Altern ative testing methods should be considered i f the patient is crit ically ill. Automated Wbteieixbndq1562-29-40 12:39:37 Test Item Value Reference Range Interpretation Comments Neutro Auto (test code = Neutro Auto) 68.3 % N Lymph Auto (test code = Lymph Auto) 18.8 % N [place] Auto (test code = [place] Auto) 9.9 % N Eos, Auto (test code = Eos, Auto) 2.5 % N Basophil Auto (test code = Basophil 0.5 % N Auto) Neutro Absolute (test code = Neutro 7.9 x10 2.7-7.3 H Absolute) Lymph Absolute (test code = Lymph 2.2 x10 0.8-3.5 Absolute) [place] Absolute (test code = [place] 1.1 x10 0.3-0.9 H Absolute) Eos Absolute (test code = Eos 0.3 x10 0.0-0.3 Absolute) Baso Absolute (test code = Baso 0.1 x10 0.0-0.1 Absolute) Comprehensive Metabolic [id number] 12:34:10 Test Item Value Reference Range Interpretation [...] AST) 42 IntlUnit/L 15-37 H Comprehensive Metabolic [id number] 12:34:10 Test Item Value Reference Range Interpretation [...] eGFR 56 mL/min/1.73 m2 N AA) Lipase [id number] 12:34:10 Test Item Value Reference Range Interpretation Comments Lipase Level (test code = 763 IntlUnit/L 73-393 H Lipase Level) Comprehensive Metabolic [id number] 12:34:10 Test Item Value Reference Range Interpretation [...] = 46 mL/min/1.73 m2 N eGFR Non-AA) Dsfcpdn7733-76-45 12:34:09 Test Item Value Reference Range Interpretation Comments Amylase Level (test code = 122 IntlUnit/L 25-115 H Amylase Level) Basic Metabolic [id number] 07:47:13 Test Item Value Reference Range Interpretation [...] Calcium 8.5 mg/dL 8.5-10.1 Level) Basic Metabolic [id number] 07:47:13 Test Item Value Reference Range Interpretation [...] mL/min/1.73 m2 N eGFR Non-AA) Basic Metabolic Gcejg1832-20-00 07:47:13 Test Item Value Reference Range Interpretation [...] 51 mL/min/1.73 m2 N eGFR Non-AA) POC Dwyowja7893-26-90 06:48:16 Test Item Value Reference Range Interpretation Comments Glucose POC (test 212 mg/dL 74-106 H POC Glucos e used on code = Glucose POC) critical ly ill patients is considered " off-label use" and has no t been cleared or appr zuly by the FDA. Altern ative testing methods should be considered i f the patient is crit ically ill. POC Qmbagvb0560-00-17 20:59:44 Test Item Value Reference Range Interpretation Comments Glucose POC (test 197 mg/dL 74-106 H POC Glucos e used on code = Glucose POC) critical ly ill patients is considered " off-label use" and has no t been cleared or appr zuly by the FDA. Altern ative testing methods should be considered i f the patient is crit ically ill. POC Aaizfla5259-65-39 17:11:26 Test Item Value Reference Range Interpretation Comments Glucose POC (test 204 mg/dL 74-106 H POC Glucos e used on code = Glucose POC) critical ly ill patients is considered " off-label use" and has no t been cleared or appr zuly by the FDA. Altern ative testing methods should be considered i f the patient is crit ically ill. Lipase Juruc0674-08-00 17:02:10 Test Item Value Reference Range Interpretation Comments Lipase Level (test code = 829 IntlUnit/L 73-393 H Lipase Level) Comprehensive Metabolic [id number] 17:02:09 Test Item Value Reference Range Interpretation [...] AST) 52 IntlUnit/L 15-37 H Comprehensive Metabolic [id number] 17:02:09 Test Item Value Reference Range Interpretation [...] 56 mL/min/1.73 m2 N AA) Comprehensive Metabolic Tdgmf7380-16-27 17:02:09 Test Item Value Reference Range Interpretation [...] = 46 mL/min/1.73 m2 N eGFR Non-AA) Scsejaqzth7630-02-63 16:32:33 Test Item Value Reference Range Interpretation [...] (test code = 1+ A Stomatocytes) Automated Bxmmivrdsdxq5701-14-80 16:16:43 Test Item Value Reference Range Interpretation Comments Neutro Auto (test code = Neutro Auto) 67.2 % N Lymph Auto (test code = Lymph Auto) 19.2 % N [place] Auto (test code = [place] Auto) 10.1 % N Eos, Auto (test code = Eos, Auto) 2.4 % N Basophil Auto (test code = Basophil 1.1 % N Auto) Neutro Absolute (test code = Neutro 8.7 x10 2.7-7.3 H Absolute) Lymph Absolute (test code = Lymph 2.5 x10 0.8-3.5 Absolute) [place] Absolute (test code = [place] 1.3 x10 0.3-0.9 H Absolute) Eos Absolute (test code = Eos 0.3 x10 0.0-0.3 Absolute) Baso Absolute (test code = Baso 0.1 x10 0.0-0.1 Absolute) Complete Blood Count with Ecvbkoaftrxr7695-33-14 16:16:42 Test Item Value Reference Range Interpretation [...] code = Slide Smear N Review) POC Oydkjdi7918-48-88 12:16:31 Test Item Value Reference Range Interpretation Comments Glucose POC (test 244 mg/dL 74-106 H POC Glucos e used on code = Glucose POC) critical ly ill patients is considered " off-label use" and has no t been cleared or appr zuly by the FDA. Altern ative testing methods should be considered i f the patient is crit ically ill. Copper, Serum [id number] 10:08:26619Zmqv test was developed and its performance characteristicsdetermined by [employer]. It has not beencleared orapproved by the Food and Drug Administration. Detection Limit = 5Performed At: [facility] [address] [place], [place] [id number] Sanjai MD Ph:[phone] Wbvqgol2711-71-60 05:04:23 Test Item Value Reference Range Interpretation Comments Glucose POC (test 264 mg/dL 74-106 H POC Glucos e used on code = Glucose POC) critical ly ill patients is considered " off-label use" and has no t been cleared or appr zuly by the FDA. Altern ative testing methods should be considered i f the patient is crit ically ill. POC Imewnym9102-05-14 04:53:58 Test Item Value Reference Range Interpretation Comments Glucose POC (test 246 mg/dL 74-106 H POC Glucos e used on code = Glucose POC) critical ly ill patients is considered " off-label use" and has no t been cleared or appr zuly by the FDA. Altern ative testing methods should be considered i f the patient is crit ically ill. POC Lznatyk9628-74-30 00:33:02 Test Item Value Reference Range Interpretation [...] crit ically ill. XR Abdomen KUB 1 [id number] 13:53:33Patient: JANIS PATTERSON Date/Time03/25/202013:45 CDTReason for ExamLine [...] Gustavo MSigned (Electronic Signature): 03/25/2020 1:53 pmPOC Kuimgof1019-46-32 11:27:11 Test Item Value Reference Range Interpretation Comments Glucose POC (test 272 mg/dL 74-106 H POC Glucos e used on code = Glucose POC) critical ly ill patients is considered " off-label use" and has no t been cleared or appr zuly by the FDA. Altern ative testing methods should be considered i f the patient is crit ically ill. POC [id number] 05:14:19 Test Item Value Reference Range Interpretation Comments Glucose POC (test 289 mg/dL 74-106 H POC Glucos e used on code = Glucose POC) critical ly ill patients is considered " off-label use" and has no t been cleared or appr zuly by the FDA. Altern ative testing methods should be considered i f the patient is crit ically ill. POC Udqdfsh6445-49-20 23:12:01 Test Item Value Reference Range Interpretation Comments Glucose POC (test 256 mg/dL 74-106 H POC Glucos e used on code = Glucose POC) critical ly ill patients is considered " off-label use" and has no t been cleared or appr zuly by the FDA. Altern ative testing methods should be considered i f the patient is crit ically ill. POC [id number] 16:43:04 Test Item Value Reference Range Interpretation Comments Glucose POC (test 288 mg/dL 74-106 H POC Glucos e used on code = Glucose POC) critical ly ill patients is considered " off-label use" and has no t been cleared or appr zuly by the FDA. Altern ative testing methods should be considered i f the patient is crit ically ill. POC [id number] 12:07:38 Test Item Value Reference Range Interpretation Comments Glucose POC (test 279 mg/dL 74-106 H POC Glucos e used on code = Glucose POC) critical ly ill patients is considered " off-label use" and has no t been cleared or appr zuly by the FDA. Altern ative testing methods should be considered i f the patient is crit ically ill. POC Ibpisrq0279-65-97 12:07:35 Test Item Value Reference Range Interpretation Comments Glucose POC (test 264 mg/dL 74-106 H POC Glucos e used on code = Glucose POC) critical ly ill patients is considered " off-label use" and has no t been cleared or appr zuly by the FDA. Altern ative testing methods should be considered i f the patient is crit ically ill. POC Fqrhkqp0625-72-97 12:07:33 Test Item Value Reference Range Interpretation Comments Glucose POC (test 255 mg/dL 74-106 H POC Glucos e used on code = Glucose POC) critical ly ill patients is considered " off-label use" and has no t been cleared or appr zuly by the FDA. Altern ative testing methods should be considered i f the patient is crit ically ill. Basic Metabolic [id number] 07:25:13 Test Item Value Reference Range Interpretation [...] Calcium 8.7 mg/dL 8.5-10.1 Level) Basic Metabolic Kzlfe8598-78-09 07:25:13 Test Item Value Reference Range Interpretation [...] mL/min/1.73 m2 N eGFR Non-AA) Basic Metabolic [id number] 07:25:13 Test Item Value Reference Range Interpretation [...] 42 mL/min/1.73 m2 N eGFR Non-AA) POC [id number] 18:31:46 Test Item Value Reference Range Interpretation Comments Glucose POC (test 259 mg/dL 74-106 H POC Glucos e used on code = Glucose POC) critical ly ill patients is considered " off-label use" and has no t been cleared or appr zuly by the FDA. Altern ative testing methods should be considered i f the patient is crit ically ill. POC [id number] 16:34:32 Test Item Value Reference Range Interpretation Comments Glucose POC (test 261 mg/dL 74-106 H POC Glucos e used on code = Glucose POC) critical ly ill patients is considered " off-label use" and has no t been cleared or appr zuly by the FDA. Altern ative testing methods should be considered i f the patient is crit ically ill. Hrwzj-4-Ioloqmhzooe, Serum [id number] 15:09:61195Wcyabcode At: JENNIFER [facility] [address] [facility] [address] [place], [place] [id number] CN MD Ph:[phone] Comprehensive Metabolic [id number] 11:29:11 Test Item Value Reference Range Interpretation [...] = AST) 31 IntlUnit/L 15-37 Comprehensive Metabolic [id number] 11:29:11 Test Item Value Reference Range Interpretation [...] 47 mL/min/1.73 m2 N AA) Comprehensive Metabolic Koftp1383-25-14 11:29:11 Test Item Value Reference Range Interpretation [...] N eGFR Non-AA) Complete Blood Count with Rzdlahrdvhwk6926-59-56 10:47:41 Test Item Value Reference Range Interpretation [...] = Slide Review) GL_SET_SLIDE _REVIEW_A UTO Automated Sngzenhjrkbv7425-44-34 10:47:41 Test Item Value Reference Range Interpretation Comments Neutro Auto (test code = Neutro 74.9 % N Auto) Lymph Auto (test code = Lymph Auto) 14.8 % N [place] Auto (test code = [place] Auto) 7.2 % N Eos, Auto (test code = Eos, Auto) 2.9 % N Basophil Auto (test code = Basophil 0.2 % N Auto) Neutro Absolute (test code = Neutro 11.4 x10 2.7-7.3 H Absolute) Lymph Absolute (test code = Lymph 2.2 x10 0.8-3.5 Absolute) [place] Absolute (test code = [place] 1.1 x10 0.3-0.9 H Absolute) Eos Absolute (test code = Eos 0.4 x10 0.0-0.3 H Absolute) Baso Absolute (test code = Baso 0.0 x10 0.0-0.1 Absolute) Hepatitis Panel (4) [id number] 08:10:18 Test Item Value Reference Range Interpretation [...] HCV Nucl eic Acid Amplification t est (150029).Perfor med At: [facility] [address] [id number] Kyle L MD Ph:[phone] POC [id number] 07:29:43 Test Item Value Reference Range Interpretation Comments Glucose POC (test 262 mg/dL 74-106 H POC Glucos e used on code = Glucose POC) critical ly ill patients is considered " off-label use" and has no t been cleared or appr zuly by the FDA. Altern ative testing methods should be considered i f the patient is crit ically ill. AFP, Serum, Tumor Glxefj2931-50-85 03:12:553.1[employer] Electrochemiluminescence Immunoassay(ECLIA) Values obtained with different assay methods or kits cannotbe used interchangeably. Results cannot be interpreted asabsolute evidence of the presence or absence of malignantdisease. This test is not interpretable in females.Performed At: [facility] [address] [id number] Martell MD Ph:[phone], Serum, Tumor [id number] 03:12:553.1[employer] Electrochemiluminescence Immunoassay(ECLIA) Values obtained with different assay methods or kits cannotbe used interchangeably. Results cannot be interpreted asabsolute evidence of the presence or absence of malignantdisease. This test is not interpretable in females.Performed At: [facility] [address] [id number] Martell MD Ph:[phone] Hfzqtud3573-71-38 21:58:00 Test Item Value Reference Range Interpretation Comments Glucose POC (test 239 mg/dL 74-106 H POC Glucos e used on code = Glucose POC) critical ly ill patients is considered " off-label use" and has no t been cleared or appr zuly by the FDA. Altern ative testing methods should be considered i f the patient is crit ically ill. POC [id number] 18:19:59 Test Item Value Reference Range Interpretation Comments Glucose POC (test 228 mg/dL 74-106 H POC Glucos e used on code = Glucose POC) critical ly ill patients is considered " off-label use" and has no t been cleared or appr zuly by the FDA. Altern ative testing methods should be considered i f the patient is crit ically ill. POC [id number] 18:19:58 Test Item Value Reference Range Interpretation Comments Glucose POC (test 230 mg/dL 74-106 H POC Glucos e used on code = Glucose POC) critical ly ill patients is considered " off-label use" and has no t been cleared or appr zuly by the FDA. Altern ative testing methods should be considered i f the patient is crit ically ill. Blood Bhaxqhy1514-74-42 18:01:51No growth at 5 days.US Abdomen Complete [...] DT/TM: 03/22/2020 3:17 pmSigned by: MD Ramiro, Heather (Electronic Signature): 03/22/2020 3:20 pmRed Blood Cells Bhxotohaazre4138-41-21 14:12:19 Test Item Value Reference Range Interpretation Comments # of Units (test code = 2 N # of Units) RBC Trn Reason (test High risk, even if N code = RBC Trn Reason) Hgb > 7 RBC Product Ready (test RBC Ready code = RBC Product Ready) [id number] 13:41:19 Test Item Value Reference Range Interpretation Comments Previous History (test code Yes Prev History = Previous History) BBID (test code = BBID) [id number] Methodology (test code = Ortho-Vision(OV) Methodology) Anti-A (test code = Anti-A) 4+ Anti-B (test code = Anti-B) 4+ Anti-D (test code = Anti-D) 4+ DCon (test code = DCon) 0 A1 (test code = A1) 0 B cells (test code = B 0 cells) ABORh (test code = ABORh) AB POS 2C [id number] 13:41:19 Test Item Value Reference Range Interpretation Comments Methodology (test code = Ortho-Vision(OV) Methodology) SC1 (test code = SC1) 0 SC2 (test code = SC2) 0 Antibody Screen (2C) (test Negative ABSC code = Antibody Screen (2C)) XR Abdomen KUB 1 [id number] 13:33:47Patient: JANIS PATTERSON Date/Time03/22/202013:17 CDTReason for ExamAbdominal distentionReportAbdomen single viewHISTORY: Abdominal distentionCOMPARISON: 03/15/2020TECHNIQUE: Supine views providedFINDINGS: Examination limited on the basis of bodyhabitus. Included lung goodrich are clear. Decreasing bowel gas noted. No pathologic calcification. Osseous structures unchanged.IMPRESSION: Nonobstructive bowel gas pattern. Final Dictated by: MD Ramiro, Angie DT/TM: 03/22/2020 1:31 pmSigned by: MD Ramiro, Huagndebby (Electronic Signature): 03/22/2020 1:33 pmIron [id number] 13:27:16 Test Item Value Reference Range Interpretation Comments Iron (test code = Iron) 23 mcg/dL 50-170 L Oruyqfkj6034-07-74 13:27:16 Test Item Value Reference Range Interpretation Comments Ferritin Level (test code = 2407.0 ng/mL 8.0-388.0 H Ferritin Level) Ammonia [id number] 13:10:13 Test Item Value Reference Range Interpretation Comments Ammonia Level (test code = Ammonia 10 mmol/L 19-54 L Level) Prothrombin Time and [id number] 12:53:08 Test Item Value Reference Range Interpretation Comments Prothrombin Time (test code = 14.2 seconds 9.2-12.0 H Prothrombin Time) INR (test code = INR) 1.4 ratio 0.9-1.2 H Partial Thromboplastin [id number] 12:53:08 Test Item Value Reference Range Interpretation Comments Partial Thromboplastin 50.9 seconds 24.0-35.0 H APTT Heparin Time (test code = Therapeuti c Range: Partial Thromboplastin 47.9- 80.4 seconds Time) Automated Lpomxpriiksu7257-36-13 10:07:27 Test Item Value Reference Range Interpretation Comments Neutro Auto (test code = Neutro 77.6 % N Auto) Lymph Auto (test code = Lymph Auto) 12.1 % N [place] Auto (test code = [place] Auto) 7.4 % N Eos, Auto (test code = Eos, Auto) 2.6 % N Basophil Auto (test code = Basophil 0.3 % N Auto) Neutro Absolute (test code = Neutro 13.7 x10 2.7-7.3 H Absolute) Lymph Absolute (test code = Lymph 2.1 x10 0.8-3.5 Absolute) [place] Absolute (test code = [place] 1.3 x10 0.3-0.9 H Absolute) Eos Absolute (test code = Eos 0.5 x10 0.0-0.3 H Absolute) Baso Absolute (test code = Baso 0.1 x10 0.0-0.1 Absolute) Complete Blood Count with Hcdkfpwxugrj5709-95-78 10:07:26 Test Item Value Reference Range Interpretation [...] = Slide Review) GL_SET_SLIDE _REVIEW_A UTO POC Tjlafvi7004-89-74 09:42:39 Test Item Value Reference Range Interpretation Comments Glucose POC (test 251 mg/dL 74-106 H POC Glucos e used on code = Glucose POC) critical ly ill patients is considered " off-label use" and has no t been cleared or appr zuly by the FDA. Altern ative testing methods should be considered i f the patient is crit ically ill. Comprehensive Metabolic [id number] 09:41:09 Test Item Value Reference Range Interpretation [...] = AST) 26 IntlUnit/L 15-37 Comprehensive Metabolic Hdifz2685-07-73 09:41:09 Test Item Value Reference Range Interpretation [...] 43 mL/min/1.73 m2 N AA) Comprehensive Metabolic [id number] 09:41:09 Test Item Value Reference Range Interpretation [...] 36 mL/min/1.73 m2 N eGFR Non-AA) POC [id number] 06:29:42 Test Item Value Reference Range Interpretation Comments Glucose POC (test 212 mg/dL 74-106 H POC Glucos e used on code = Glucose POC) critical ly ill patients is considered " off-label use" and has no t been cleared or appr zuly by the FDA. Altern ative testing methods should be considered i f the patient is crit ically ill. POC [id number] 18:28:55 Test Item Value Reference Range Interpretation [...] crit ically ill. Urinalysis with Culture, if rwiimgjdr3262-24-02 17:39:47 Test Item Value Reference Range Interpretation [...] UA Micro Ind?) rule GL_SET_UA_MICRO _IND Urinalysis Veaxpyoimhc4142-76-97 17:39:47 Test Item Value Reference Range Interpretation [...] /LPF 1-6 Cast) XR Chest 1 View Qyctbnl4224-02-83 14:48:59Patient: JANIS PATTERSON Date/Time03/21/202014:30 CDTReason for Examfever, cough;FeverReportChest single viewHISTORY: Fever, coughCOMPARISON: 03/14/2020TECHNIQUE: AP semierect view providedFINDINGS: Heart size remains generous with fullness of the central pulmonary vessels, likely accentuated by shallow inspiratory lung volumes. Asymmetric elevation of the right hemidiaphragm again noted. No new opacity or acute pleural abnormality. Bony thoraxunchanged where visualized.IMPRESSION: No active cardiopulmonary process. Final Dictated by: MD Ramiro, Jesúsctalexandra DT/TM: 03/21/2020 2:47 pmSigned by: MD Ramiro, Huagned (Electronic Signature): 03/21/2020 2:48 pmPOC [id number] 11:48:05 Test Item Value Reference Range Interpretation Comments Glucose POC (test 261 mg/dL 74-106 H POC Glucos e used on code = Glucose POC) critical ly ill patients is considered " off-label use" and has no t been cleared or appr zuly by the FDA. Altern ative testing methods should be considered i f the patient is crit ically ill. Basic Metabolic [id number] 09:58:13 Test Item Value Reference Range Interpretation [...] 8.1 mg/dL 8.5-10.1 L Level) Basic Metabolic [id number] 09:58:13 Test Item Value Reference Range Interpretation [...] 40 mL/min/1.73 m2 N AA) Basic Metabolic [id number] 09:58:13 Test Item Value Reference Range Interpretation [...] N eGFR Non-AA) Complete Blood Count with [id number] 09:37:12 Test Item Value Reference Range Interpretation [...] = Slide Review) GL_SET_SLIDE _REVIEW_A UTO Automated [id number] 09:37:12 Test Item Value Reference Range Interpretation Comments Neutro Auto (test code = Neutro 70.4 % N Auto) Lymph Auto (test code = Lymph Auto) 18.0 % N [place] Auto (test code = [place] Auto) 8.7 % N Eos, Auto (test code = Eos, Auto) 2.5 % N Basophil Auto (test code = Basophil 0.4 % N Auto) Neutro Absolute (test code = Neutro 11.3 x10 2.7-7.3 H Absolute) Lymph Absolute (test code = Lymph 2.9 x10 0.8-3.5 Absolute) [place] Absolute (test code = [place] 1.4 x10 0.3-0.9 H Absolute) Eos Absolute (test code = Eos 0.4 x10 0.0-0.3 H Absolute) Baso Absolute (test code = Baso 0.1 x10 0.0-0.1 Absolute) POC [id number] 06:40:31 Test Item Value Reference Range Interpretation Comments Glucose POC (test 296 mg/dL 74-106 H POC Glucos e used on code = Glucose POC) critical ly ill patients is considered " off-label use" and has no t been cleared or appr zuly by the FDA. Altern ative testing methods should be considered i f the patient is crit ically ill. POC [id number] 21:40:20 Test Item Value Reference Range Interpretation Comments Glucose POC (test 226 mg/dL 74-106 H POC Glucos e used on code = Glucose POC) critical ly ill patients is considered " off-label use" and has no t been cleared or appr zuly by the FDA. Altern ative testing methods should be considered i f the patient is crit ically ill. POC [id number] 20:05:47 Test Item Value Reference Range Interpretation Comments Glucose POC (test 265 mg/dL 74-106 H POC Glucos e used on code = Glucose POC) critical ly ill patients is considered " off-label use" and has no t been cleared or appr zuly by the FDA. Altern ative testing methods should be considered i f the patient is crit ically ill. POC [id number] 20:05:46 Test Item Value Reference Range Interpretation Comments Glucose POC (test 250 mg/dL 74-106 H POC Glucos e used on code = Glucose POC) critical ly ill patients is considered " off-label use" and has no t been cleared or appr zuly by the FDA. Altern ative testing methods should be considered i f the patient is crit ically ill. POC [id number] 06:00:28 Test Item Value Reference Range Interpretation Comments Glucose POC (test 242 mg/dL 74-106 H POC Glucos e used on code = Glucose POC) critical ly ill patients is considered " off-label use" and has no t been cleared or appr zuly by the FDA. Altern ative testing methods should be considered i f the patient is crit ically ill. POC [id number] 06:00:23 Test Item Value Reference Range Interpretation Comments Glucose POC (test 200 mg/dL 74-106 H POC Glucos e used on code = Glucose POC) critical ly ill patients is considered " off-label use" and has no t been cleared or appr zuly by the FDA. Altern ative testing methods should be considered i f the patient is crit ically ill. POC [id number] 06:00:20 Test Item Value Reference Range Interpretation Comments Glucose POC (test 203 mg/dL 74-106 H POC Glucos e used on code = Glucose POC) critical ly ill patients is considered " off-label use" and has no t been cleared or appr zuly by the FDA. Altern ative testing methods should be considered i f the patient is crit ically ill. POC [id number] 16:06:06 Test Item Value Reference Range Interpretation Comments Glucose POC (test 204 mg/dL 74-106 H POC Glucos e used on code = Glucose POC) critical ly ill patients is considered " off-label use" and has no t been cleared or appr zuly by the FDA. Altern ative testing methods should be considered i f the patient is crit ically ill. CT Brain/Head w/o [id number] 14:51:33Patient: JANIS PATTERSON Date/Time03/19/202014:20 CDTReason for ExamCVA-repeat [...] ASigned (Electronic Signature): 03/19/2020 2:51 pmRenal Function [id number] 05:30:05 Test Item Value Reference Range Interpretation [...] 2.7 mg/dL 2.5-4.9 Phosphorus Level) Renal Function [id number] 05:30:05 Test Item Value Reference Range Interpretation [...] mg/dL 2.5-4.9 = Phosphorus Level) Renal Function [id number] 05:30:05 Test Item Value Reference Range Interpretation [...] = Phosphorus Level) Complete Blood Count with [id number] 05:26:56 Test Item Value Reference Range Interpretation [...] = Slide Review) GL_SET_SLIDE _REVIEW_A UTO Automated [id number] 05:26:56 Test Item Value Reference Range Interpretation Comments Neutro Auto (test code = Neutro Auto) 67.3 % N Lymph Auto (test code = Lymph Auto) 17.3 % N [place] Auto (test code = [place] Auto) 11.6 % N Eos, Auto (test code = Eos, Auto) 3.5 % N Basophil Auto (test code = Basophil 0.3 % N Auto) Neutro Absolute (test code = Neutro 8.8 x10 2.7-7.3 H Absolute) Lymph Absolute (test code = Lymph 2.3 x10 0.8-3.5 Absolute) [place] Absolute (test code = [place] 1.5 x10 0.3-0.9 H Absolute) Eos Absolute (test code = Eos 0.5 x10 0.0-0.3 H Absolute) Baso Absolute (test code = Baso 0.0 x10 0.0-0.1 Absolute) POC [id number] 23:46:57 Test Item Value Reference Range Interpretation Comments Glucose POC (test 181 mg/dL 74-106 H POC Glucos e used on code = Glucose POC) critical ly ill patients is considered " off-label use" and has no t been cleared or appr zuly by the FDA. Altern ative testing methods should be considered i f the patient is crit ically ill. POC [id number] 16:00:47 Test Item Value Reference Range Interpretation Comments Glucose POC (test 169 mg/dL 74-106 H POC Glucos e used on code = Glucose POC) critical ly ill patients is considered " off-label use" and has no t been cleared or appr zuly by the FDA. Altern ative testing methods should be considered i f the patient is crit ically ill. POC [id number] 11:19:25 Test Item Value Reference Range Interpretation Comments Glucose POC (test 166 mg/dL 74-106 H POC Glucos e used on code = Glucose POC) critical ly ill patients is considered " off-label use" and has no t been cleared or appr zuly by the FDA. Altern ative testing methods should be considered i f the patient is crit ically ill. Phosphorus [id number] 06:13:20 Test Item Value Reference Range Interpretation Comments Phosphorus Level (test code = 3.4 mg/dL 2.5-4.9 Phosphorus Level) Comprehensive Metabolic [id number] 06:13:19 Test Item Value Reference Range Interpretation [...] 23 mL/min/1.73 m2 N AA) Comprehensive Metabolic [id number] 06:13:19 Test Item Value Reference Range Interpretation [...] mL/min/1.73 m2 N eGFR Non-AA) Comprehensive Metabolic [id number] 06:13:19 Test Item Value Reference Range Interpretation [...] 19 mL/min/1.73 m2 N eGFR Non-AA) POC [id number] 06:01:01 Test Item Value Reference Range Interpretation Comments Glucose POC (test 85 mg/dL 74-106 POC Glucos e used on code = Glucose POC) critical ly ill patients is considered " off-label use" and has no t been cleared or appr zuly by the FDA. Altern ative testing methods should be considered i f the patient is crit ically ill. POC [id number] 05:28:40 Test Item Value Reference Range Interpretation Comments Glucose POC (test 88 mg/dL 74-106 POC Glucos e used on code = Glucose POC) critical ly ill patients is considered " off-label use" and has no t been cleared or appr zuly by the FDA. Altern ative testing methods should be considered i f the patient is crit ically ill. POC [id number] 05:28:39 Test Item Value Reference Range Interpretation Comments Glucose POC (test 103 mg/dL 74-106 POC Glucos e used on code = Glucose POC) critical ly ill patients is considered " off-label use" and has no t been cleared or appr zuly by the FDA. Altern ative testing methods should be considered i f the patient is crit ically ill. Complete Blood Count with [id number] 05:18:17 Test Item Value Reference Range Interpretation [...] = Slide Review) GL_SET_SLIDE _REVIEW_A UTO Automated [id number] 05:18:17 Test Item Value Reference Range Interpretation Comments Neutro Auto (test code = Neutro Auto) 65.6 % N Lymph Auto (test code = Lymph Auto) 18.1 % N [place] Auto (test code = [place] Auto) 13.5 % N Eos, Auto (test code = Eos, Auto) 2.4 % N Basophil Auto (test code = Basophil 0.4 % N Auto) Neutro Absolute (test code = Neutro 9.1 x10 2.7-7.3 H Absolute) Lymph Absolute (test code = Lymph 2.5 x10 0.8-3.5 Absolute) [place] Absolute (test code = [place] 1.9 x10 0.3-0.9 H Absolute) Eos Absolute (test code = Eos 0.3 x10 0.0-0.3 Absolute) Baso Absolute (test code = Baso 0.1 x10 0.0-0.1 Absolute) CT Brain/Head w/o [id number] 12:26:51Patient: JANIS PATTERSON Date/Time03/17/202012:10 CDTReason for ExamAltered [...] Ramiro, Huagndebby (Electronic Signature): 03/17/2020 12:26 pmManual [id number] 04:05:02 Test Item Value Reference Range Interpretation [...] = Lymph 4.3 0.8-3.5 H Man Abs) [place] Man Abs (test code = [place] 1.4 0.3-0.9 H Man Abs) Eos Man Abs (test code = Eos Man 0.3 0.0-0.3 Abs) Baso Man Abs (test code = Baso 0.0 0.0-0.1 Man Abs) RBC Morph (test code = RBC As Indicated Normal A Morph) Anisocyte (test code = 1+ A Anisocyte) Red House Cells (test code = Joe 1+ A Cells) Plt Estimation (test code = Plt Normal Normal Estimation) Basic Metabolic [id number] 04:00:24 Test Item Value Reference Range Interpretation [...] Calcium 8.6 mg/dL 8.5-10.1 Level) Basic Metabolic [id number] 04:00:24 Test Item Value Reference Range Interpretation [...] 17 mL/min/1.73 m2 N AA) Basic Metabolic [id number] 04:00:24 Test Item Value Reference Range Interpretation [...] N eGFR Non-AA) Complete Blood Count with [id number] 03:39:33 Test Item Value Reference Range Interpretation [...] code = Slide Manual N Review) POC [id number] 20:54:43 Test Item Value Reference Range Interpretation Comments Glucose POC (test 92 mg/dL 74-106 POC Glucos e used on code = Glucose POC) critical ly ill patients is considered " off-label use" and has no t been cleared or appr zuly by the FDA. Altern ative testing methods should be considered i f the patient is crit ically ill. POC [id number] 18:24:58 Test Item Value Reference Range Interpretation Comments Glucose POC (test 107 mg/dL 74-106 H POC Glucos e used on code = Glucose POC) critical ly ill patients is considered " off-label use" and has no t been cleared or appr zuly by the FDA. Altern ative testing methods should be considered i f the patient is crit ically ill. POC [id number] 14:58:35 Test Item Value Reference Range Interpretation Comments Glucose POC (test 93 mg/dL 74-106 POC Glucos e used on code = Glucose POC) critical ly ill patients is considered " off-label use" and has no t been cleared or appr zuly by the FDA. Altern ative testing methods should be considered i f the patient is crit ically ill. POC [id number] 10:27:27 Test Item Value Reference Range Interpretation Comments Glucose POC (test 113 mg/dL 74-106 H POC Glucos e used on code = Glucose POC) critical ly ill patients is considered " off-label use" and has no t been cleared or appr zuly by the FDA. Altern ative testing methods should be considered i f the patient is crit ically ill. Basic Metabolic [id number] 05:21:17 Test Item Value Reference Range Interpretation [...] Calcium 8.6 mg/dL 8.5-10.1 Level) Basic Metabolic [id number] 05:21:17 Test Item Value Reference Range Interpretation [...] 13 mL/min/1.73 m2 N AA) Basic Metabolic [id number] 05:21:17 Test Item Value Reference Range Interpretation [...] N eGFR Non-AA) Complete Blood Count with Sxzphyxkjoqj2081-28-55 04:59:06 Test Item Value Reference Range Interpretation [...] = Slide Review) GL_SET_SLIDE _REVIEW_A UTO Automated [id number] 04:59:06 Test Item Value Reference Range Interpretation Comments Neutro Auto (test code = Neutro Auto) 63.4 % N Lymph Auto (test code = Lymph Auto) 18.4 % N [place] Auto (test code = [place] Auto) 12.2 % N Eos, Auto (test code = Eos, Auto) 5.5 % N Basophil Auto (test code = Basophil 0.5 % N Auto) Neutro Absolute (test code = Neutro 7.6 x10 2.7-7.3 H Absolute) Lymph Absolute (test code = Lymph 2.2 x10 0.8-3.5 Absolute) [place] Absolute (test code = [place] 1.5 x10 0.3-0.9 H Absolute) Eos Absolute (test code = Eos 0.7 x10 0.0-0.3 H Absolute) Baso Absolute (test code = Baso 0.1 x10 0.0-0.1 Absolute) POC [id number] 02:35:32 Test Item Value Reference Range Interpretation Comments Glucose POC (test 125 mg/dL 74-106 H POC Glucos e used on code = Glucose POC) critical ly ill patients is considered " off-label use" and has no t been cleared or appr zuly by the FDA. Altern ative testing methods should be considered i f the patient is crit ically ill. POC [id number] 18:41:51 Test Item Value Reference Range Interpretation Comments Glucose POC (test 126 mg/dL 74-106 H POC Glucos e used on code = Glucose POC) critical ly ill patients is considered " off-label use" and has no t been cleared or appr zuly by the FDA. Altern ative testing methods should be considered i f the patient is crit ically ill. POC [id number] 12:05:47 Test Item Value Reference Range Interpretation Comments Glucose POC (test 126 mg/dL 74-106 H POC Glucos e used on code = Glucose POC) critical ly ill patients is considered " off-label use" and has no t been cleared or appr zuly by the FDA. Altern ative testing methods should be considered i f the patient is crit ically ill. XR Abdomen 2 Ghmpk5731-16-19 07:26:36Patient: JANIS PATTERSON Date/Time03/15/2020 06:30 CDTReason for [...] Craig ASigned (Electronic Signature): 03/15/2020 7:26 amPOC [id number] 06:35:09 Test Item Value Reference Range Interpretation Comments Glucose POC (test 126 mg/dL 74-106 H POC Glucos e used on code = Glucose POC) critical ly ill patients is considered " off-label use" and has no t been cleared or appr zuly by the FDA. Altern ative testing methods should be considered i f the patient is crit ically ill. Comprehensive Metabolic [id number] 06:02:17 Test Item Value Reference Range Interpretation [...] mL/min/1.73 m2 N eGFR Non-AA) Comprehensive Metabolic [id number] 06:02:17 Test Item Value Reference Range Interpretation [...] mL/min/1.73 m2 N eGFR Non-AA) Comprehensive Metabolic [id number] 06:02:17 Test Item Value Reference Range Interpretation [...] N eGFR Non-AA) Complete Blood Count with Esepxemqplba4983-03-14 04:35:24 Test Item Value Reference Range Interpretation [...] = Slide Review) GL_SET_SLIDE _REVIEW_A UTO Automated [id number] 04:35:24 Test Item Value Reference Range Interpretation Comments Neutro Auto (test code = Neutro Auto) 76.2 % N Lymph Auto (test code = Lymph Auto) 11.5 % N [place] Auto (test code = [place] Auto) 9.1 % N Eos, Auto (test code = Eos, Auto) 2.7 % N Basophil Auto (test code = Basophil 0.5 % N Auto) Neutro Absolute (test code = Neutro 9.8 x10 2.7-7.3 H Absolute) Lymph Absolute (test code = Lymph 1.5 x10 0.8-3.5 Absolute) [place] Absolute (test code = [place] 1.2 x10 0.3-0.9 H Absolute) Eos Absolute (test code = Eos 0.3 x10 0.0-0.3 Absolute) Baso Absolute (test code = Baso 0.1 x10 0.0-0.1 Absolute) POC [id number] 04:17:11 Test Item Value Reference Range Interpretation Comments Glucose POC (test 113 mg/dL 74-106 H POC Glucos e used on code = Glucose POC) critical ly ill patients is considered " off-label use" and has no t been cleared or appr zuly by the FDA. Altern ative testing methods should be considered i f the patient is crit ically ill. POC [id number] 17:07:50 Test Item Value Reference Range Interpretation Comments Glucose POC (test 103 mg/dL 74-106 POC Glucos e used on code = Glucose POC) critical ly ill patients is considered " off-label use" and has no t been cleared or appr zuly by the FDA. Altern ative testing methods should be considered i f the patient is crit ically ill. POC [id number] 17:07:39 Test Item Value Reference Range Interpretation [...] crit ically ill. XR Chest 1 View [id number] 15:46:40Patient: JANIS PATTERSON Date/Time03/14/2020 15:19 CDTReason for [...] (Electronic Signature): 03/14/2020 3:46 pmXR Abdomen 2 [id number] 07:34:40Patient: JANIS PATTERSON Date/Time03/14/2020 06:01 CDTReason for [...] ileus. Final Dictated by: MD Herrera Craig ADictalexandra DT/TM: 03/14/2020 7:33 amSigned by: MD Herrera Craig ASigned (Electronic Signature): 03/14/2020 7:34 amPOC [id number] 05:01:53 Test Item Value Reference Range Interpretation Comments Glucose POC (test 126 mg/dL 74-106 H POC Glucos e used on code = Glucose POC) critical ly ill patients is considered " off-label use" and has no t been cleared or appr zuly by the FDA. Altern ative testing methods should be considered i f the patient is crit ically ill. Comprehensive Metabolic [id number] 04:22:14 Test Item Value Reference Range Interpretation [...] code = AST) 32 IntlUnit/L 15-37 Lipase [id number] 04:22:14 Test Item Value Reference Range Interpretation Comments Lipase Level (test code = 167 IntlUnit/L 73-393 Lipase Level) Comprehensive Metabolic [id number] 04:22:14 Test Item Value Reference Range Interpretation [...] 11 mL/min/1.73 m2 N AA) Comprehensive Metabolic [id number] 04:22:14 Test Item Value Reference Range Interpretation [...] N eGFR Non-AA) Complete Blood Count with Njsjssqbeevt9562-03-44 04:00:46 Test Item Value Reference Range Interpretation [...] = Slide Review) GL_SET_SLIDE _REVIEW_A UTO Automated [id number] 04:00:46 Test Item Value Reference Range Interpretation Comments Neutro Auto (test code = Neutro 75.2 % N Auto) Lymph Auto (test code = Lymph Auto) 13.8 % N [place] Auto (test code = [place] Auto) 7.6 % N Eos, Auto (test code = Eos, Auto) 3.1 % N Basophil Auto (test code = Basophil 0.3 % N Auto) Neutro Absolute (test code = Neutro 11.3 x10 2.7-7.3 H Absolute) Lymph Absolute (test code = Lymph 2.1 x10 0.8-3.5 Absolute) [place] Absolute (test code = [place] 1.2 x10 0.3-0.9 H Absolute) Eos Absolute (test code = Eos 0.5 x10 0.0-0.3 H Absolute) Baso Absolute (test code = Baso 0.0 x10 0.0-0.1 Absolute) POC [id number] 21:27:38 Test Item Value Reference Range Interpretation Comments Glucose POC (test 176 mg/dL 74-106 H POC Glucos e used on code = Glucose POC) critical ly ill patients is considered " off-label use" and has no t been cleared or appr zuly by the FDA. Altern ative testing methods should be considered i f the patient is crit ically ill. POC [id number] 21:27:31 Test Item Value Reference Range Interpretation Comments Glucose POC (test 141 mg/dL 74-106 H POC Glucos e used on code = Glucose POC) critical ly ill patients is considered " off-label use" and has no t been cleared or appr zuly by the FDA. Altern ative testing methods should be considered i f the patient is crit ically ill. POC [id number] 20:03:58 Test Item Value Reference Range Interpretation Comments Glucose POC (test 130 mg/dL 74-106 H POC Glucos e used on code = Glucose POC) critical ly ill patients is considered " off-label use" and has no t been cleared or appr zuly by the FDA. Altern ative testing methods should be considered i f the patient is crit ically ill. Red Blood Cells Cqozbjhdwuca3433-00-28 05:08:02 Test Item Value Reference Range Interpretation Comments # of Units (test code = 2 N # of Units) RBC Trn Reason (test High risk, even if N code = RBC Trn Reason) Hgb > 7 RBC Product Ready (test RBC Ready code = RBC Product Ready) Automated Iodxeogagyvw0608-12-22 04:40:58 Test Item Value Reference Range Interpretation Comments Neutro Auto (test code = Neutro 75.6 % N Auto) Lymph Auto (test code = Lymph Auto) 15.7 % N [place] Auto (test code = [place] Auto) 7.2 % N Eos, Auto (test code = Eos, Auto) 1.1 % N Basophil Auto (test code = Basophil 0.4 % N Auto) Neutro Absolute (test code = Neutro 12.3 x10 2.7-7.3 H Absolute) Lymph Absolute (test code = Lymph 2.6 x10 0.8-3.5 Absolute) [place] Absolute (test code = [place] 1.2 x10 0.3-0.9 H Absolute) Eos Absolute (test code = Eos 0.2 x10 0.0-0.3 Absolute) Baso Absolute (test code = Baso 0.1 x10 0.0-0.1 Absolute) Complete Blood Count with Hwejsgrddkdf3955-02-29 04:40:57 Test Item Value Reference Range Interpretation Comments WBC (test code = WBC) 16.3 x10 4.8-10.8 H RBC (test code = RBC) 2.66 x10 4.20-5.50 L Hgb (test code = Hgb) 7.9 g/dL 12.0-16.0 ctrb/ k joel / rn / li 03/13/2020 04 :40:54 CDT Hct (test code [...] created by = Slide Review) GL_SET_SLIDE _REVIEW_A WIO Basic Metabolic [id number] 04:37:09 Test Item Value Reference Range Interpretation [...] 7.4 mg/dL 8.5-10.1 L Level) Basic Metabolic [id number] 04:37:09 Test Item Value Reference Range Interpretation [...] 13 mL/min/1.73 m2 N AA) Basic Metabolic [id number] 04:37:09 Test Item Value Reference Range Interpretation [...] 11 mL/min/1.73 m2 N eGFR Non-AA) POC [id number] 20:05:34 Test Item Value Reference Range Interpretation Comments Glucose POC (test 176 mg/dL 74-106 H POC Glucos e used on code = Glucose POC) critical ly ill patients is considered " off-label use" and has no t been cleared or appr zuly by the FDA. Altern ative testing methods should be considered i f the patient is crit ically ill. POC [id number] 20:05:31 Test Item Value Reference Range Interpretation Comments Glucose POC (test 196 mg/dL 74-106 H POC Glucos e used on code = Glucose POC) critical ly ill patients is considered " off-label use" and has no t been cleared or appr zuly by the FDA. Altern ative testing methods should be considered i f the patient is crit ically ill. POC [id number] 14:07:30 Test Item Value Reference Range Interpretation Comments Glucose POC (test 214 mg/dL 74-106 H POC Glucos e used on code = Glucose POC) critical ly ill patients is considered " off-label use" and has no t been cleared or appr zuly by the FDA. Altern ative testing methods should be considered i f the patient is crit ically ill. Comprehensive Metabolic [id number] 13:32:29 Test Item Value Reference Range Interpretation [...] = AST) 30 IntlUnit/L 15-37 Comprehensive Metabolic [id number] 13:32:29 Test Item Value Reference Range Interpretation [...] code = eGFR Non-AA) m2 Comprehensive Metabolic [id number] 13:32:29 Test Item Value Reference Range Interpretation [...] eGFR Non-AA) m2 Complete Blood Count with Cshmphruigco5792-75-25 13:08:12 Test Item Value Reference Range Interpretation [...] = Slide Review) GL_SET_SLIDE _REVIEW_A UTO Automated [id number] 13:08:12 Test Item Value Reference Range Interpretation Comments Neutro Auto (test code = Neutro 80.7 % N Auto) Lymph Auto (test code = Lymph Auto) 11.4 % N [place] Auto (test code = [place] Auto) 6.9 % N Eos, Auto (test code = Eos, Auto) 0.5 % N Basophil Auto (test code = Basophil 0.5 % N Auto) Neutro Absolute (test code = Neutro 13.5 x10 2.7-7.3 H Absolute) Lymph Absolute (test code = Lymph 1.9 x10 0.8-3.5 Absolute) [place] Absolute (test code = [place] 1.2 x10 0.3-0.9 H Absolute) Eos Absolute (test code = Eos 0.1 x10 0.0-0.3 Absolute) Baso Absolute (test code = Baso 0.1 x10 0.0-0.1 Absolute) POC [id number] 05:48:53 Test Item Value Reference Range Interpretation Comments Glucose POC (test 174 mg/dL 74-106 H POC Glucos e used on code = Glucose POC) critical ly ill patients is considered " off-label use" and has no t been cleared or appr zuly by the FDA. Altern ative testing methods should be considered i f the patient is crit ically ill. Red Blood Cells [id number] 00:56:23 Test Item Value Reference Range Interpretation Comments # of Units (test code = 2 N # of Units) RBC Trn Reason (test Other (please N code = RBC Trn Reason) specify) RBC Product Ready (test RBC Ready code = RBC Product Ready) [id number] 23:05:30 Test Item Value Reference Range Interpretation Comments Previous History (test code Yes Prev History = Previous History) BBID (test code = BBID) [id number] Methodology (test code = Ortho-Vision(OV) Methodology) Anti-A (test code = Anti-A) 4+ Anti-B (test code = Anti-B) 4+ Anti-D (test code = Anti-D) 4+ DCon (test code = DCon) 0 A1 (test code = A1) 0 B cells (test code = B 0 cells) ABORh (test code = ABORh) AB POS 2C [id number] 23:05:30 Test Item Value Reference Range Interpretation Comments Methodology (test code = Ortho-Vision(OV) Methodology) SC1 (test code = SC1) 0 SC2 (test code = SC2) 0 Antibody Screen (2C) (test Negative ABSC code = Antibody Screen (2C)) Basic Metabolic [id number] 22:42:20 Test Item Value Reference Range Interpretation [...] 7.7 mg/dL 8.5-10.1 L Level) Basic Metabolic Vxglk6260-02-51 22:42:20 Test Item Value Reference Range Interpretation [...] 19 mL/min/1.73 m2 N AA) Basic Metabolic Omikl0518-94-72 22:42:20 Test Item Value Reference Range Interpretation [...] N eGFR Non-AA) Complete Blood Count with Xqgbkhrilbfn9356-13-78 22:23:44 Test Item Value Reference Range Interpretation [...] = Slide Review) GL_SET_SLIDE _REVIEW_A UTO Automated Benvosckfshz9478-59-71 22:23:44 Test Item Value Reference Range Interpretation Comments Neutro Auto (test code = Neutro Auto) 75.1 % N Lymph Auto (test code = Lymph Auto) 15.7 % N [place] Auto (test code = [place] Auto) 8.8 % N Eos, Auto (test code = Eos, Auto) 0.1 % N Basophil Auto (test code = Basophil 0.3 % N Auto) Neutro Absolute (test code = Neutro 9.4 x10 2.7-7.3 H Absolute) Lymph Absolute (test code = Lymph 2.0 x10 0.8-3.5 Absolute) [place] Absolute (test code = [place] 1.1 x10 0.3-0.9 H Absolute) Eos Absolute (test code = Eos 0.0 x10 0.0-0.3 Absolute) Baso Absolute (test code = Baso 0.0 x10 0.0-0.1 Absolute) POC Ntnkecn1771-70-31 21:25:30 Test Item Value Reference Range Interpretation Comments Glucose POC (test 283 mg/dL 74-106 H POC Glucos e used on code = Glucose POC) critical ly ill patients is considered " off-label use" and has no t been cleared or appr zuly by the FDA. Altern ative testing methods should be considered i f the patient is crit ically ill. POC Aokayqc4426-11-63 16:33:28 Test Item Value Reference Range Interpretation Comments Glucose POC (test 267 mg/dL 74-106 H POC Glucos e used on code = Glucose POC) critical ly ill patients is considered " off-label use" and has no t been cleared or appr zuly by the FDA. Altern ative testing methods should be considered i f the patient is crit ically ill. Basic Metabolic Lbrkv6239-52-81 14:17:33 Test Item Value Reference Range Interpretation Comments Sodium Level (test 135 mmol/L 136-145 L code = Sodium Level) Potassium Level (test 6.1 mmol/L 3.5-5.1 [facility] d[facility] miguelmaude code = Potassium 03/11/2020 1 4:17:22 Level) [...] 8.5-10.1 code = Calcium Level) Basic Metabolic [id number] 14:17:33 Test Item Value Reference Range Interpretation [...] mL/min/1.73 N eGFR AA) m2 Basic Metabolic [id number] 14:17:33 Test Item Value Reference Range Interpretation [...] eGFR Non-AA) m2 Complete Blood Count with Bcthqlspndht9146-74-04 13:55:20 Test Item Value Reference Range Interpretation [...] = Slide Review) GL_SET_SLIDE _REVIEW_A UTO Automated Ssrzassrjelf3572-96-39 13:55:20 Test Item Value Reference Range Interpretation Comments Neutro Auto (test code = Neutro 85.0 % N Auto) Lymph Auto (test code = Lymph Auto) 9.6 % N [place] Auto (test code = [place] Auto) 5.0 % N Eos, Auto (test code = Eos, Auto) 0.1 % N Basophil Auto (test code = Basophil 0.3 % N Auto) Neutro Absolute (test code = Neutro 12.0 x10 2.7-7.3 H Absolute) Lymph Absolute (test code = Lymph 1.4 x10 0.8-3.5 Absolute) [place] Absolute (test code = [place] 0.7 x10 0.3-0.9 Absolute) Eos Absolute (test code = Eos 0.0 x10 0.0-0.3 Absolute) Baso Absolute (test code = Baso 0.0 x10 0.0-0.1 Absolute) POC Pvxobme3318-51-96 13:51:38 Test Item Value Reference Range Interpretation Comments Glucose POC (test 341 mg/dL 74-106 H POC Glucos e used on code = Glucose POC) critical ly ill patients is considered " off-label use" and has no t been cleared or appr zuly by the FDA. Altern ative testing methods should be considered i f the patient is crit ically ill. POC G3+ [id number] 13:02:53 Test Item Value Reference Range Interpretation [...] = R Radial N Performing Site) POC Rqcuzos3989-38-74 10:04:37 Test Item Value Reference Range Interpretation Comments Glucose POC (test 197 mg/dL 74-106 H POC Glucos e used on code = Glucose POC) critical ly ill patients is considered " off-label use" and has no t been cleared or appr zuly by the FDA. Altern ative testing methods should be considered i f the patient is crit ically ill. POC Lnhcqyt8238-66-07 07:57:55 Test Item Value Reference Range Interpretation [...] crit ically ill. XR Chest 1 View Ftmvwbm3105-53-46 06:44:47Patient: JANIS PATTERSON Date/Time03/11/2020 01:10 CDTReason for Exampre op;Other (please specify)ReportXR CHEST 1 VIEW FRONTALDIAGNOSIS: Preop for respiratory clearance and appendectomyThe heart and mediastinum are stable. No consolidation or pleural fluid is seen.IMPRESSION: No active disease and no change since 02/21/2020. Final Dictated by: MD Patty, Phu BarkerDictated DT/TM: 03/11/2020 6:43 amSigned by: MD Brambila Michael JackSigned (Electronic Signature): 03/11/2020 6:44 amUrine [id number] 02:35:50Multiple organisms isolated. Probable contaminant. Suggest sterile recollect. No further workup.Urinalysis Vpjjkcakzez2301-43-60 02:09:15 Test Item Value Reference Range Interpretation Comments UA WBC (test code = UA WBC) 51-100 /HPF 0-5 A UA RBC (test code = UA RBC) 0-4 /HPF 0-4 UA Bacteria (test code = UA 3+ /HPF Negative A Bacteria) UA Squam Epithelial (test code = 0-20 /LPF 0-20 UA Squam Epithelial) Urinalysis with Culture, if iqhofitoz9567-72-59 02:04:59 Test Item Value Reference Range Interpretation [...] Indicated Not Indicated A Ind?) Partial Thromboplastin [id number] 01:19:59 Test Item Value Reference Range Interpretation Comments Partial Thromboplastin 28.3 seconds 24.0-35.0 APTT Heparin Time (test code = Therapeuti c Range: Partial Thromboplastin 47.9- 80.4 seconds Time) Prothrombin Time and [id number] 01:19:58 Test Item Value Reference Range Interpretation Comments Prothrombin Time (test code = 11.0 seconds 9.2-12.0 Prothrombin Time) INR (test code = INR) 1.0 ratio 0.9-1.2 Magnesium [id number] 01:14:16 Test Item Value Reference Range Interpretation Comments Magnesium Level (test code = 1.4 mg/dL 1.6-2.6 L Magnesium Level) CT Abdomen and Pelvis w/o Inydgfgh3488-92-89 00:54:11Patient: JANIS PATTERSON Date/Time03/11/2020 00:41 CDTReason for [...] abscess.No urinary system calculus or hydronephrosis.RL: 460AFC: 55125Isgifloe findings were discussed with Dr. Bee, who [...] = AST) 11 IntlUnit/L 15-37 L Lipase Pivsj1223-87-58 23:18:17 Test Item Value Reference Range Interpretation Comments Lipase Level (test code = 373 IntlUnit/L 73-393 Lipase Level) Comprehensive Metabolic Epnfx8715-50-84 23:18:17 Test Item Value Reference Range Interpretation [...] >60 mL/min/1.73 m2 N AA) Comprehensive Metabolic [id number] 23:18:17 Test Item Value Reference Range Interpretation [...] N eGFR Non-AA) Complete Blood Count with Bbcedacgyaoo5751-02-79 22:55:17 Test Item Value Reference Range Interpretation [...] = Slide Review) GL_SET_SLIDE _REVIEW_A UTO Automated Jnwdglvugtfn0056-82-92 22:55:17 Test Item Value Reference Range Interpretation Comments Neutro Auto (test code = Neutro 82.2 % N Auto) Lymph Auto (test code = Lymph Auto) 11.8 % N [place] Auto (test code = [place] Auto) 5.1 % N Eos, Auto (test code = Eos, Auto) 0.3 % N Basophil Auto (test code = Basophil 0.6 % N Auto) Neutro Absolute (test code = Neutro 10.2 x10 2.7-7.3 H Absolute) Lymph Absolute (test code = Lymph 1.5 x10 0.8-3.5 Absolute) [place] Absolute (test code = [place] 0.6 x10 0.3-0.9 Absolute) Eos Absolute (test code = Eos 0.0 x10 0.0-0.3 Absolute) Baso Absolute (test code = Baso 0.1 x10 0.0-0.1 Absolute) [place] MTVKWXC8814-11-77 12:05:00[facility] [place], [place] [address]SWOYUULXBY IMAGING REPORTPatient Name: JANIS PATTERSON of Service: [id number]: 59 Sex: F Order #: [id number] Room: OPODOB: 1960 X-Ray Number: [id number] Record Number: [id number] Hospital Number: [id number] Physician: GARCIA AMBROSIOOrdering Physician: GARCIA AMBROSIOExam: Ultrasound thyroidHistory: Abnormal thyroid [...] Signed By: Frederick Bueno M.D., 03/07/2020 12:03 Eleno authenticated by DAVID RIGGS JR 2020-03-07 12:03:22PO Wwplsdo0179-01-56 14:42:28 Test Item Value Reference Range Interpretation Comments Glucose POC (test 227 mg/dL 74-106 H POC Glucos e used on code = Glucose POC) critical ly ill patients is considered " off-label use" and has no t been cleared or appr zuly by the FDA. Altern ative testing methods should be considered i f the patient is crit ically ill. CT Angio Brain/Fvll1747-67-27 12:03:04Patient: JANIS PATTERSON Date/Time02/21/202011:39 CDTReason for ExamDizzinessReportHISTORY: [...] JulioSigned (Electronic Signature): 02/21/2020 12:03 pmCT Angio [id number] 12:03:04Patient: JANIS PATTERSON Date/Time02/21/202011:39 CDTReason for ExamConfusionReportHISTORY: [...] crit ically ill. XR Chest 1 View Svzeqyf4656-00-43 10:56:26Patient: JANIS PATTERSON Date/Time02/21/202010:19 CDTReason for ExamShortness of breathReportX-ray CHEST 1 VIEW FRONTAL:HISTORY: Shortness of breath, stroke alertCOMPARISON: 01/04/2020The cardiac silhouette is enlarged, with left ventricular prominence. The mediastinum shows no significant abnormality.There is mild pulmonary vascular engorgement. No confluent infiltrates are seen in the lungs.The bony architecture appears intact, where adequately seen.IMPRESSION:Mild cardiomegaly and pulmonary vascular congestion. Final Dictated by: MD Stevens Ramon JulioDictated DT/TM: 02/21/2020 10:55 amSigned by: MD Stevens Ramon JulioSigned (Electronic Signature): 02/21/2020 10:56 amComprehensive Metabolic [id number] 10:04:12 Test Item Value Reference Range Interpretation [...] = AST) 10 IntlUnit/L 15-37 L Troponin [id number] 10:04:12 Test Item Value Reference Range Interpretation Comments Troponin-I (test code = <0.015 ng/mL 0.010-0.040 Troponin-I) Lipid [id number] 10:04:12 Test Item Value Reference Range Interpretation Comments Cholesterol Total (test code = 149 mg/dL 0-200 Cholesterol Total) Triglycerides (test code = 127 mg/dL 2-150 Triglycerides) HDL (test code = HDL) 56 mg/dL 45-65 Chol/HDL (test code = Chol/HDL) 3 ratio 0-5 Magnesium Hgdwo1894-95-64 10:04:12 Test Item Value Reference Range Interpretation Comments Magnesium Level (test code = 1.3 mg/dL 1.6-2.6 L Magnesium Level) Comprehensive Metabolic [id number] 10:04:12 Test Item Value Reference Range Interpretation [...] >60 mL/min/1.73 m2 N AA) Comprehensive Metabolic [id number] 10:04:12 Test Item Value Reference Range Interpretation [...] 51 mL/min/1.73 m2 N eGFR Non-AA) Lipid [id number] 10:04:12 Test Item Value Reference Range Interpretation [...] 3 ratio 0-5 Chol/HDL) Prothrombin Time and [id number] 09:50:20 Test Item Value Reference Range Interpretation Comments Prothrombin Time (test code = 10.1 seconds 9.2-12.0 Prothrombin Time) INR (test code = INR) 1.0 ratio 0.9-1.2 Partial Thromboplastin Jhbl4989-04-13 09:50:20 Test Item Value Reference Range Interpretation Comments Partial Thromboplastin 27.5 seconds 24.0-35.0 APTT Heparin Time (test code = Therapeuti c Range: Partial Thromboplastin 47.9- 80.4 seconds Time) Complete Blood Count with Caltvclgserk8419-69-14 09:49:12 Test Item Value Reference Range Interpretation [...] = Slide Review) GL_SET_SLIDE _REVIEW_A UTO Automated Rswyrwsxhntw0165-90-78 09:49:12 Test Item Value Reference Range Interpretation Comments Neutro Auto (test code = Neutro Auto) 61.8 % N Lymph Auto (test code = Lymph Auto) 30.0 % N [place] Auto (test code = [place] Auto) 5.0 % N Eos, Auto (test code = Eos, Auto) 2.6 % N Basophil Auto (test code = Basophil 0.6 % N Auto) Neutro Absolute (test code = Neutro 7.0 x10 2.7-7.3 Absolute) Lymph Absolute (test code = Lymph 3.4 x10 0.8-3.5 Absolute) [place] Absolute (test code = [place] 0.6 x10 0.3-0.9 Absolute) Eos Absolute (test code = Eos 0.3 x10 0.0-0.3 Absolute) Baso Absolute (test code = Baso 0.1 x10 0.0-0.1 Absolute) CT Brain/Head w/o Riciwdbo7041-10-53 09:41:26Patient: JANIS PATTERSON Date/Time02/21/202009:21 CDTReason for ExamAltered [...] with Phu Head and documented in the [employer] system on 02/21/2020 9:41 AM, Message ID [id number]. Final Dictated by: MD Stevens Ramon JulioDictated DT/TM: 02/21/2020 9:38 amSigned by: MD Stevens Ramon JulioSigned (Electronic Sign ature): 02/21/2020 9:41 amPOC Troponin [id number] 09:21:16 Test Item Value Reference Range Interpretation [...] EKG, CKMB, clinicalobserva tions, symptons, etc. POC Ueyzxbk4725-14-55 12:28:18 Test Item Value Reference Range Interpretation Comments Glucose POC (test 212 mg/dL 74-106 H POC Glucos e used on code = Glucose POC) critical ly ill patients is considered " off-label use" and has no t been cleared or appr zuly by the FDA. Altern ative testing methods should be considered i f the patient is crit ically ill. POC Zbuqxxv2178-09-24 07:20:41 Test Item Value Reference Range Interpretation Comments Glucose POC (test 252 mg/dL 74-106 H POC Glucos e used on code = Glucose POC) critical ly ill patients is considered " off-label use" and has no t been cleared or appr zuly by the FDA. Altern ative testing methods should be considered i f the patient is crit ically ill. Comprehensive Metabolic [id number] 04:31:16 Test Item Value Reference Range Interpretation [...] AST) 9 IntlUnit/L 15-37 L Comprehensive Metabolic [id number] 04:31:16 Test Item Value Reference Range Interpretation [...] 40 mL/min/1.73 m2 N AA) Comprehensive Metabolic [id number] 04:31:16 Test Item Value Reference Range Interpretation [...] N eGFR Non-AA) Complete Blood Count with Ebwdqvbahjpx3652-26-63 04:06:22 Test Item Value Reference Range Interpretation [...] = Slide Review) GL_SET_SLIDE _REVIEW_A UTO Automated Hxtzxrlmlnvv2437-03-53 04:06:22 Test Item Value Reference Range Interpretation Comments Neutro Auto (test code = Neutro 85.1 % N Auto) Lymph Auto (test code = Lymph Auto) 9.8 % N [place] Auto (test code = [place] Auto) 5.0 % N Basophil Auto (test code = Basophil 0.1 % N Auto) Neutro Absolute (test code = Neutro 14.1 x10 2.7-7.3 H Absolute) Lymph Absolute (test code = Lymph 1.6 x10 0.8-3.5 Absolute) [place] Absolute (test code = [place] 0.8 x10 0.3-0.9 Absolute) Eos Absolute (test code = Eos 0.0 x10 0.0-0.3 Absolute) Baso Absolute (test code = Baso 0.0 x10 0.0-0.1 Absolute) POC [id number] 21:38:32 Test Item Value Reference Range Interpretation Comments Glucose POC (test 340 mg/dL 74-106 H POC Glucos e used on code = Glucose POC) critical ly ill patients is considered " off-label use" and has no t been cleared or appr zuly by the FDA. Altern ative testing methods should be considered i f the patient is crit ically ill. POC Johjknm6621-21-25 21:38:31 Test Item Value Reference Range Interpretation Comments Glucose POC (test 255 mg/dL 74-106 H POC Glucos e used on code = Glucose POC) critical ly ill patients is considered " off-label use" and has no t been cleared or appr zuly by the FDA. Altern ative testing methods should be considered i f the patient is crit ically ill. POC Jwdwyki4240-85-27 12:28:25 Test Item Value Reference Range Interpretation Comments Glucose POC (test 330 mg/dL 74-106 H POC Glucos e used on code = Glucose POC) critical ly ill patients is considered " off-label use" and has no t been cleared or appr zuly by the FDA. Altern ative testing methods should be considered i f the patient is crit ically ill. POC [id number] 11:53:50 Test Item Value Reference Range Interpretation [...] crit ically ill. XR Chest 1 View Putjmnv8690-22-95 11:38:51Patient: JANIS PATTERSON Date/Time2/ 04:55 CSTReason for ExamChest painReportChest single viewHISTORY: [...] code = <0.015 ng/mL 0.010-0.040 Troponin-I) Troponin [id number] 08:09:07 Test Item Value Reference Range Interpretation Comments Troponin-I (test code = <0.015 ng/mL 0.010-0.040 Troponin-I) CT Angio [id number] 05:30:07Patient: JANIS PATTERSON Date/Time01/04/2020 05:21 CSTReason for [...] 01/04/2020 5:30 am Complete Blood Count with Jyqigstewgqw5495-79-36 04:41:14 Test Item Value Reference Range Interpretation [...] = Slide Review) GL_SET_SLIDE _REVIEW_A UTO Automated Phsiuzkhkfdy8424-54-57 04:41:14 Test Item Value Reference Range Interpretation Comments Neutro Auto (test code = Neutro Auto) 50.8 % N Lymph Auto (test code = Lymph Auto) 40.4 % N [place] Auto (test code = [place] Auto) 5.0 % N Eos, Auto (test code = Eos, Auto) 3.0 % N Basophil Auto (test code = Basophil 0.8 % N Auto) Neutro Absolute (test code = Neutro 5.9 x10 2.7-7.3 Absolute) Lymph Absolute (test code = Lymph 4.7 x10 0.8-3.5 H Absolute) [place] Absolute (test code = [place] 0.6 x10 0.3-0.9 Absolute) Eos Absolute (test code = Eos 0.4 x10 0.0-0.3 H Absolute) Baso Absolute (test code = Baso 0.1 x10 0.0-0.1 Absolute) Comprehensive Metabolic Vbrwf7706-06-58 04:37:09 Test Item Value Reference Range Interpretation [...] AST) 16 IntlUnit/L 15-37 Pro B Natriuretic Iycqirs5939-68-93 04:37:09 Test Item Value Reference Range Interpretation Comments NT-proBNP (test 75 pg/mL 0-125 < 300 pg/ml - heart code = NT-proBNP) failure un likelyAge less than 50 years, > 450 pg/ml - heart f ailure lilkelyAge 50 - 75 years, > 900 pg/ml - h eart failure likelyA ge greater than 75 years, > 1800 pg/ml - heart f ailure likely Comprehensive Metabolic [id number] 04:37:09 Test Item Value Reference Range Interpretation [...] 56 mL/min/1.73 m2 N AA) Comprehensive Metabolic [id number] 04:37:09 Test Item Value Reference Range Interpretation [...] m2 N eGFR Non-AA) Prothrombin Time and [id number] 04:29:09 Test Item Value Reference Range Interpretation Comments Prothrombin Time (test code = 10.2 seconds 9.2-12.0 Prothrombin Time) INR (test code = INR) 1.0 ratio 0.9-1.2 Partial Thromboplastin [id number] 04:29:09 Test Item Value Reference Range Interpretation Comments Partial Thromboplastin 24.2 seconds 24.0-35.0 APTT Heparin Time (test code = Therapeuti c Range: Partial Thromboplastin 47.9- 80.4 seconds Time) D-Dimer Wqbodteieiwr5630-15-22 04:29:09 Test Item Value Reference Range Interpretation [...] is of DVT or PEunlikely. POC Troponin [id number] 04:11:54 Test Item Value Reference Range Interpretation [...] tions, symptons, etc. XR Knee 3 Views Awlws7521-39-26 10:51:31Patient: JANIS PATTERSON Date/Time06/30/2019 10:38 CDTReason for [...] Arthur LSigned (Electronic Signature): 06/30/2019 10:51 amPOC Mldtmjv2324-79-82 13:27:29 Test Item Value Reference Range Interpretation [...] crit ically ill. Complete Blood Count with Meftrgwzhkek1151-07-04 06:43:46 Test Item Value Reference Range Interpretation [...] = Slide Review) GL_SET_SLIDE _REVIEW_A UTO Automated Awxjygtexapv5367-02-10 06:43:46 Test Item Value Reference Range Interpretation Comments Neutro Auto (test code = Neutro Auto) 68.5 % N Lymph Auto (test code = Lymph Auto) 21.0 % N [place] Auto (test code = [place] Auto) 9.0 % N Eos, Auto (test code = Eos, Auto) 1.3 % N Basophil Auto (test code = Basophil 0.2 % N Auto) Neutro Absolute (test code = Neutro 8.7 x10 2.7-7.3 H Absolute) Lymph Absolute (test code = Lymph 2.7 x10 0.8-3.5 Absolute) [place] Absolute (test code = [place] 1.1 x10 0.3-0.9 H Absolute) Eos Absolute (test code = Eos 0.2 x10 0.0-0.3 Absolute) Baso Absolute (test code = Baso 0.0 x10 0.0-0.1 Absolute) POC [id number] 05:48:52 Test Item Value Reference Range Interpretation Comments Glucose POC (test 173 mg/dL 74-106 H POC Glucos e used on code = Glucose POC) critical ly ill patients is considered " off-label use" and has no t been cleared or appr zuly by the FDA. Altern ative testing methods should be considered i f the patient is crit ically ill. POC Vygyauz4041-31-24 20:37:22 Test Item Value Reference Range Interpretation Comments Glucose POC (test 217 mg/dL 74-106 H POC Glucos e used on code = Glucose POC) critical ly ill patients is considered " off-label use" and has no t been cleared or appr zuly by the FDA. Altern ative testing methods should be considered i f the patient is crit ically ill. POC [id number] 16:38:05 Test Item Value Reference Range Interpretation Comments Glucose POC (test 126 mg/dL 74-106 H POC Glucos e used on code = Glucose POC) critical ly ill patients is considered " off-label use" and has no t been cleared or appr zuly by the FDA. Altern ative testing methods should be considered i f the patient is crit ically ill. POC Lllqzdv2150-30-56 11:01:37 Test Item Value Reference Range Interpretation Comments Glucose POC (test 256 mg/dL 74-106 H POC Glucos e used on code = Glucose POC) critical ly ill patients is considered " off-label use" and has no t been cleared or appr zuly by the FDA. Altern ative testing methods should be considered i f the patient is crit ically ill. Basic Metabolic [id number] 08:13:13 Test Item Value Reference Range Interpretation [...] 8.0 mg/dL 8.5-10.1 L Level) Basic Metabolic [id number] 08:13:13 Test Item Value Reference Range Interpretation [...] mL/min/1.73 m2 N eGFR Non-AA) Basic Metabolic [id number] 08:13:13 Test Item Value Reference Range Interpretation [...] N eGFR Non-AA) Complete Blood Count with Rpcyvferbqix0034-06-92 07:55:58 Test Item Value Reference Range Interpretation [...] = Slide Review) GL_SET_SLIDE _REVIEW_A UTO Automated Khfopxlpkniz7247-74-73 07:55:58 Test Item Value Reference Range Interpretation Comments Neutro Auto (test code = Neutro Auto) 63.9 % N Lymph Auto (test code = Lymph Auto) 26.5 % N [place] Auto (test code = [place] Auto) 7.7 % N Eos, Auto (test code = Eos, Auto) 1.4 % N Basophil Auto (test code = Basophil 0.5 % N Auto) Neutro Absolute (test code = Neutro 6.9 x10 2.7-7.3 Absolute) Lymph Absolute (test code = Lymph 2.9 x10 0.8-3.5 Absolute) [place] Absolute (test code = [place] 0.8 x10 0.3-0.9 Absolute) Eos Absolute (test code = Eos 0.2 x10 0.0-0.3 Absolute) Baso Absolute (test code = Baso 0.1 x10 0.0-0.1 Absolute) POC Ruryrrb0578-08-96 07:06:01 Test Item Value Reference Range Interpretation Comments Glucose POC (test 161 mg/dL 74-106 H POC Glucos e used on code = Glucose POC) critical ly ill patients is considered " off-label use" and has no t been cleared or appr zuly by the FDA. Altern ative testing methods should be considered i f the patient is crit ically ill. POC [id number] 20:37:15 Test Item Value Reference Range Interpretation Comments Glucose POC (test 139 mg/dL 74-106 H POC Glucos e used on code = Glucose POC) critical ly ill patients is considered " off-label use" and has no t been cleared or appr zuly by the FDA. Altern ative testing methods should be considered i f the patient is crit ically ill. POC Ldfniyt5316-31-03 15:32:22 Test Item Value Reference Range Interpretation Comments Glucose POC (test 147 mg/dL 74-106 H POC Glucos e used on code = Glucose POC) critical ly ill patients is considered " off-label use" and has no t been cleared or appr zuly by the FDA. Altern ative testing methods should be considered i f the patient is crit ically ill. POC Swmrqqi3502-47-80 12:58:00 Test Item Value Reference Range Interpretation [...] ill. XR Knee 1 or 2 Views Jytds1630-78-19 10:42:14Patient: JANIS PATTERSON Date/Time05/10/2019 10:29 CDTReason for [...] Gustavo MSigned (Electronic Signature): 05/10/2019 10:42 amPOC Jbzjxvk5216-39-09 06:32:30 Test Item Value Reference Range Interpretation Comments Glucose POC (test 177 mg/dL 74-106 H POC Glucos e used on code = Glucose POC) critical ly ill patients is considered " off-label use" and has no t been cleared or appr zuly by the FDA. Altern ative testing methods should be considered i f the patient is crit ically ill. Red Blood Cells Mikieffodvfj1394-12-89 17:06:46 Test Item Value Reference Range Interpretation Comments # of Units (test code = # of Units) 2 N RBC Trn Reason (test code = RBC Trn Surgery N Reason) RBC Product Ready (test code = RBC RBC Ready Product Ready) ABORh [id number] 16:57:21 Test Item Value Reference Range Interpretation Comments Methodology (test code = Test-Tube(TT) Methodology) Anti-A (test code = Anti-A) 4+ Anti-B (test code = Anti-B) 4+ Anti-AB (test code = Anti-AB) NT Anti-D (test code = Anti-D) 4+ ABORh Retype (test code = ABORh AB POS Retype) [id number] 14:41:14 Test Item Value Reference Range Interpretation Comments Previous History (test code No Prev History = Previous History) BBID (test code = BBID) [id number] Methodology (test code = Ortho-Vision(OV) Methodology) Anti-A (test code = Anti-A) 4+ Anti-B (test code = Anti-B) 4+ Anti-D (test code = Anti-D) 4+ DCon (test code = DCon) 0 A1 (test code = A1) 0 B cells (test code = B 0 cells) ABORh (test code = ABORh) AB POS 2C [id number] 14:41:14 Test Item Value Reference Range Interpretation Comments Methodology (test code = Ortho-Vision(OV) Methodology) SC1 (test code = SC1) 0 SC2 (test code = SC2) 0 Antibody Screen (2C) (test Negative ABSC code = Antibody Screen (2C)) Urine Snyenwy6529-12-14 07:25:17 Test Item Value Reference Range Interpretation [...] coli C Urine Added by GL_SET_CULT_RFLXVitamin D, 60-Tbfwjon5177-53-19 03:08:52 16.6Vitamin D deficiency has been defined by the [place] of[employer] and an Endocrine Society practice guideline as alevel of serum 25-OH vitamin D less than 20 ng/mL (1,2).The Endocrine Society went on to further define vitamin Dinsufficiency as a level between 21 and 29 ng/mL (2).1. IOM ([place] of [employer]). 2010. Dietary reference intakes for calcium and D. [place]: The National Academies Press.2. Jaswinder MF, Dangelo ROSE, Carlos CHIANG, et al. Evaluation, treatment, and prevention of vitamin D deficiency: an Endocrine Society clinical practice guideline. JCEM. 2010; 96(7):1911- 30.Performed At: [facility] [address] [id number] Zeus Martell MD Ph:[phone] with Culture, if wbzxlewxg9879-25-07 12:21:12 Test Item Value Reference Range Interpretation [...] UA Micro Ind?) rule GL_SET_UA_MICRO _IND Urinalysis Rmyhdtzwfqk7109-68-03 12:21:12 Test Item Value Reference Range Interpretation [...] Hyal 1-6 /LPF 1-6 Cast) Erythrocyte Sedimentation [id number] 11:19:25 Test Item Value Reference Range Interpretation Comments ESR, Westergren (test code = ESR, 108 mm/hr 0-20 H Westergren) Comprehensive Metabolic [id number] 10:46:09 Test Item Value Reference Range Interpretation [...] AST) 7 IntlUnit/L 15-37 L Comprehensive Metabolic Rwsib7665-70-24 10:46:09 Test Item Value Reference Range Interpretation [...] >60 mL/min/1.73 m2 N AA) Comprehensive Metabolic [id number] 10:46:09 Test Item Value Reference Range Interpretation [...] N eGFR Non-AA) XR Knee 3 Views Jttwu8769-32-61 10:37:31Patient: JANIS PATTERSON Date/Time05/04/2019 10:31 CDTReason for [...] Joseph ASigned (Electronic Signature): 05/04/2019 10:37 amAutomated Jxxihsbjyxpk5987-13-45 10:34:41 Test Item Value Reference Range Interpretation Comments Neutro Auto (test code = Neutro Auto) 57.2 % N Lymph Auto (test code = Lymph Auto) 33.6 % N [place] Auto (test code = [place] Auto) 4.9 % N Eos, Auto (test code = Eos, Auto) 3.7 % N Basophil Auto (test code = Basophil 0.6 % N Auto) Neutro Absolute (test code = Neutro 5.3 x10 2.7-7.3 Absolute) Lymph Absolute (test code = Lymph 3.1 x10 0.8-3.5 Absolute) [place] Absolute (test code = [place] 0.5 x10 0.3-0.9 Absolute) Eos Absolute (test code = Eos 0.3 x10 0.0-0.3 Absolute) Baso Absolute (test code = Baso 0.1 x10 0.0-0.1 Absolute) Complete Blood Count with Lgrhgjglhvor7212-98-18 10:34:40 Test Item Value Reference Range Interpretation [...] Review) GL_SET_SLIDE _REVIEW_A UTO XR Chest 2 [id number] 10:34:37Patient: JANIS PATTERSON Date/Time05/04/2019 10:20 CDTReason for Exampreop;Other (please specify)ReportCHEST 2 VIEWREASON FOR STUDY: Hypertension , diabetes.COMPARISON: 05/28/2017COMMENTS:The lungs are clear. There are no pleural abnormalities. The heart and mediastinal contours are within normal limits. The bony thorax is intact. There are degenerative changes in the thoracic spine.IMPRESSION:There is no abnormality identified in the chest. Final Dictated by: MD Valdez Joseph ADictated DT/TM: 05/04/2019 10:34 amSigned by:MD Valdez Joseph ASigned (Electronic Signature): 05/04/2019 10:34 amProthrombin Time and [id number] 10:28:30 Test Item Value Reference Range Interpretation Comments Prothrombin Time (test code = 10.2 seconds 9.2-12.0 Prothrombin Time) INR (test code = INR) 1.0 ratio 0.9-1.2 Partial Thromboplastin [id number] 10:28:30 Test Item Value Reference Range Interpretation Comments Partial Thromboplastin 26.9 seconds 24.0-35.0 APTT Heparin Time (test code = Therapeuti c Range: Partial Thromboplastin 47.9- 80.4 seconds Time) Z-ORG SCREEN MAMMO W/[id number] 13:05:[address]IAGNOSTIC IMAGING REPORTPatient Name: JANIS PATTERSON LDate of Service: [id number]: 58 Sex: F Order #: 100 Room: OPODOB: 1960 X-Ray Number: [id number] Record Number: [id number] Hospital Number: [id number] Physician: MITCHELL AMBROSIONDOrdering Physician: CHAZ AMBROSIOATERAL DIGITAL MAMMOGRAM WITH TOMOSYNTHESIS:CLINICAL HISTORY: Routine annual screening study; family history of breastcancer in a cousin.TECHNIQUE: The craniocaudal and mediolateral views were obtained andtomosynthesis was utilized.FISHER SWORDFISH: ANA LILIA ELLIOTT, RT R (M)FINDINGS: The [...] be deferredbecause of a negative mammogram.MAMMOGRAPHY AT [facility] IS ACCREDITED BY THE [place]LE[place] OFRADIOLOGYTHANK YOU FOR YOUR OUTPATIENT REFERRALjhbElectronically Signed By: David Winston M.D., 03/22/2019 1:03 PMLegally authenticated by JOSE Siu 2019-03-22 13:03:03-ORG SCREEN MAMMO W/CAD +[id number] 10:30:[address] [id number] IMAGING REPORTPatient Name: JANIS PATTERSON LDate of Service: [id number]: 57 Sex: F Order #: 100 Room: OPODOB: 1960 X- Ray Number: [id number] Record Number: [id number] Hospital Number: [id number] Physician: DAILY, ANANDOrdering Physician: DAILY, ANANDDigital bilateral screening mammogram with 3-D tomosynthesis [...] be deferredbecause of a negative mammogram.MAMMOGRAPHY AT [facility] IS ACCREDITED BY THE [place]LEGE OF RADIOLOGYElectronically Signed By: Tristian Eden M.D., 03/17/2018 10:28AMLegally authenticated by JASMINE ALLISON 2018-03-17 10:28:01CT CHEST ANGIO W/[id number] 08:45:49CTA CHEST WITH 3-D, AND MULTIPLANAR REFORMATS:CLINICAL [...] within the rightlower lobe.XR CHEST SGL 1V, DEOIMXH8908-97-14 07:59:31 XR CHEST SGL 1V, FRONTALDIAGNOSIS: Mid [...] lobe is not absolutely excluded. KNEE 3 [id number] 10:04:[address] [id number] IMAGING REPORTPatient Name: JANIS PATTERSON Izabelate of Service: [id number]: 56 Sex: F Order #: [id number] Room: OPODOB: 1960 X-Ray Number: [id number] Record Number: [id number] Hospital Number: [id number] Physician: Ethan AMBROSIO Physician: Aries AMBROSIO kneesAvailable [...] authenticated by MERY GOMEZ 2016-12-30 10:02:18KNEE 4 [id number] 10:04:00[address] [id number] IMAGING REPORTPatient Name: JANIS PATTERSONte of Service: [id number]: 56 Sex: F Order #: 100 Room: OPODOB: 1960 X-Ray Number: [id number] Record Number: [id number] Hospital Number: [id number] Physician: Ethan AMBROSIO Physician: Aries AMBROSIO kneesAvailable [...]
[2020-10-25] MEDS ORDERED: NA CHLORIDE 0.9% 1,000 ML ONE (00:27)
[2020-10-25] MEDS ORDERED: PIPER/TAZO/NS 3.375gm 3.375 GM/100 ML BAG ONE (00:27)
[2020-10-25] MEDS ORDERED: FAMOTIDINE 20 MG/2 ML VIAL IV ONE ×2 (00:27→03:03)
[2020-10-25] MEDS ORDERED: LEVALBUTEROL 1.25 MG/3 ML NEB ONE (00:46)
[2020-10-25] MEDS ORDERED: IPRATROPIUM BROM 0.5MG/2.5ML ONE (00:46)
[2020-10-25 00:47] LABS: ALT/SGPT 144 U/L (12-78); AST/SGOT 189 U/L (15-37); Albumin 2.8 g/dL (3.4-5.0); Alkaline Phosphatase 158 U/L (45-117); BUN Blood Urea Nitrogen 53 mg/dL (7-18); Bicarbonate 31 mmol/L (21-32); Bilirubin Direct 0.2 mg/dL (0-0.2); Bilirubin Total 0.7 mg/dL (0.2-1.0); Glucose Level 66 mg/dL (74-106); Lipase 94 U/L (73-393); NT PRO-BNP 759 pg/mL (<125); Potassium 3.5 mmol/L (3.5-5.1); Protein, Total 9.4 g/dL (6.4-8.2); Sodium Level 158 mmol/L (136-145); Troponin (Emerg Dept Use Only) < 0.02 ng/mL (0.0-0.045)
[2020-10-25 01:05] LABS: Protime INR 1.19
[2020-10-25 01:07] LABS: Absolute Lymphocytes (CBC) 3.9 K/uL (0.7-4.9); Basophils % 0.9 % (0-1.3); Hematocrit 48.1 % (36.0-45.0); Lymphocytes % 31.4 % (15.3-44.8); MPV 12.4 fL (7.6-11.3); RBC Red Blood Cell Count 5.27 M/uL (3.86-4.86)
--- NOTE | 2020-10-25 01:32 | ER ---
[facility] Name: Marah Patterson Age: 60 yrs Sex: Female : 1960 Arrival Date: 10/24/2020 Time: 23:47 Bed 8 Private MD: Diagnosis: Dehydration;Urinary tract infection, site not specified;Acute kidney failure-on chronic;Pneumonia, unspecified organism-aspiration;Elevated white blood cell count;Hypercalcemia;Hypoglycemia, unspecified Presentation: 10/24 23:53 Chief complaint: EMS states: patient is from [facility], after feeding thru G-tube, rv vomited and aspirated as per nurse. oxygen saturation at the scene is below 90s, went up to 100% on non-rebreather mask, with tachycardia. Coronavirus screen: Client denies travel out of the [place] in the last 14 days. Ebola Screen: No symptoms or risks identified at this time. Initial Sepsis Screen: Does the patient meet any 2 criteria? No. Patient's initial sepsis screen is negative. Does the patient have a suspected source of infection? No. Patient's initial sepsis screen is negative. Risk Assessment: Do you want to hurt yourself or someone else? Patient reports no desire to harm self or others. Onset of symptoms is unknown. 23:53 Method Of Arrival: EMS: [facility] rv 23:53 Acuity: CHARLES 3 rv Triage Assessment: 23:59 General: Appears comfortable, Behavior is non-verbal. Pain: Unable to use pain scale. rv Patient appears quiet. EENT: No signs and/or symptoms were reported regarding the EENT system. Neuro: Level of Consciousness is awake, alert, Oriented to none. Cardiovascular: Patient's skin is warm and dry. Cardiovascular: Rhythm is sinus tachycardia. Respiratory: Airway is patent Respiratory effort is even, unlabored, Breath sounds are clear bilaterally. Derm: Skin is healthy with good turgor. 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 - Social history:: Smoking status: unknown. Screenin/09 00:01 Abuse screen: Denies threats or abuse. Denies injuries from another. Nutritional rv screening: No deficits noted. Tuberculosis screening: No symptoms or risk factors identified. Fall Risk None identified. Assessment: 00:00 General: Appears in no apparent distress. Behavior is appropriate for age. Neuro: Level ea of Consciousness is responds to painful stimulus. Respiratory: Airway is patent Respiratory effort is even, unlabored, Respiratory pattern is regular, symmetrical. Derm: Skin is clammy, Skin is normal, Skin temperature is hot. 01:25 Reassessment: pt taken to CT. ea 02:22 Reassessment: Pt resting with eyes closed, responds to loud verbal stimulus. Pt unable ea to move extremities or verbalize needs. 03:41 Reassessment: Patient and/or family updated on plan of care and expected duration. Pain ea level reassessed. Pt responds to loud verbal stimulus, is unable to voice needs. Pt respirations isha and unlabored. Chest expansions even and symmetrical. No s/s of pain or discomfort noted at this time. Vital Signs: 10/24 23:53 BP 102 / 79; Pulse 120; Resp 16; Temp 98.6; Pulse Ox 97% on R/A; Weight 72.57 kg; rv 10/25 01:27 BP 118 / 88; Pulse 122; Resp 16; Pulse Ox 100% ; ea 03:43 BP 124 / 84; Pulse 128; Resp 20; Pulse Ox 99% ; ea ED Course: 10/24 23:47 Patient arrived in ED. am2 23:53 Jlail Paulson, ROLF is Primary Nurse. rv 23:58 Job Rose MD is Attending Physician. [facility] 23:58 Triage completed. rv 10/25 00:00 Arm band placed on right wrist. Patient placed in the treatment room, on a stretcher, rv Patient notified of wait time. 00:01 Patient has correct armband on for positive identification. classroom monitor on. Pulse rv ox on. NIBP on. 00:10 Inserted saline lock: 20 gauge in right antecubital area, using aseptic technique. ea Blood collected. 00:20 Straight cath inserted, using sterile technique, 16 Fr. Specimen obtained. Returned ea cloudy urine. Patient tolerated well. 00:23 XRAY Chest (1 view) In Process Unspecified. EDMS 01:08 Notified ED physician of a critical lab result(s). Lactate 2.9. sg 01:28 Ashvin Cardona DO is Hospitalizing Provider. naomi 01:59 CT Stone Protocol In Process Unspecified. EDMS 02:14 Gopal Schmidt MD is Hospitalizing Provider. la1 02:19 No provider procedures requiring assistance completed. Patient admitted, IV remains in ea place. Administered Medications: 00:15 Drug: NS 0.9% 1000 ml Route: IV; Rate: 1 bolus; Site: right antecubital; rv 01:50 Follow up: IV Status: Completed infusion; IV Intake: 1000ml rv 00:15 Drug: Pepcid 20 mg Route: IVP; Site: right antecubital; rv 01:51 Follow up: Response: No adverse reaction rv 00:40 Drug: Zosyn 3.375 grams Route: IVPB; Infused Over: 60 mins; Site: right antecubital; rv 01:50 Follow up: IV Status: Completed infusion; IV Intake: 100ml rv 00:40 Drug: Xopenex 1.25 mg Route: Inhalation; rv 01:51 Follow up: Response: No adverse reaction rv 00:40 Drug: AtroVENT Aerosol 0.5 mg Route: Inhalation; rv 01:51 Follow up: Response: No adverse reaction rv 01:49 Drug: D50W 50 ml Route: IVP; Site: right antecubital; rv 02:24 Follow up: Response: No adverse reaction ea 01:50 Drug: NS 0.9% 1000 ml Route: IV; Rate: 1 bolus; Site: right antecubital; rv 01:50 Drug: NS 0.9% 1000 ml Route: IV; Rate: 125 ml/hr; Site: right antecubital; rv 02:24 Follow up: IV Status: Infusion continued upon admission ea Intake: 01:50 IV: 1000ml; Total: 1000ml. rv 01:50 IV: 100ml; Total: 1100ml. rv Outcome: 01:32 Decision to Hospitalize by Provider. naomi 02:19 Admitted to ER Hold. [facility]. ea 02:19 Condition: stable 02:19 Instructed on 04:43 Patient left the ED. rv Signatures: Dispatcher [employer] EDMS Brandon Gil RN RN sg Anderson, Corey, MD MD cha Attema, Lee, BUYER AGENT-C BUYER AGENT-Cla1 Anabella Larry am2 Vee Pink, RN RN Jalil Judd, RN RN rv Corrections: (The following items were deleted from the chart) 01:28 01:27 BP 118 / 88; Pulse 16bpm; Resp 100bpm; Pulse Ox 100%; victor hugo gay
--- NOTE | 2020-10-25 01:32 | EDPHYS ---
Physician Documentation [facility] Name: Marah Patterson Age: 60 yrs Sex: Female : 1960 Arrival Date: 10/24/2020 Time: 23:47 Bed 8 Private MD: ED Physician Job Rose HPI: 10/25 00:02 This 60 yrs old Black Female presents to ER via EMS with complaints of dyspnea, naomi aspiration and hypoxia. 00:02 The patient has shortness of breath at rest. Onset: The symptoms/episode began/occurred naomi just prior to arrival. Duration: The symptoms are continuous, and are steadily getting worse. The patient's shortness of breath is aggravated by coughing, supine position, is alleviated by rest, sitting up, application of supplemental oxygen. Associated signs and symptoms: Pertinent positives: non-productive cough. Severity of symptoms: At their worst the symptoms were moderate in the emergency department the symptoms have improved mildly. The patient has experienced similar episodes in the past, a few times. 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 - Social history:: Smoking status: unknown. ROS: 10/25 00:03 Constitutional: Negative for fever, chills, and weight loss, Eyes: Negative for injury, naomi pain, redness, and discharge, ENT: Negative for injury, pain, and discharge, Neck: Negative for injury, pain, and swelling, Cardiovascular: Negative for chest pain, palpitations, and edema, Abdomen/GI: Negative for abdominal pain, nausea, vomiting, diarrhea, and constipation, Back: Negative for injury and pain, : Negative for injury, bleeding, discharge, and swelling, MS/Extremity: Negative for injury and deformity, Skin: Negative for injury, rash, and discoloration, Neuro: Negative for headache, weakness, numbness, tingling, and seizure, Psych: Negative for depression, anxiety, suicide ideation, homicidal ideation, and hallucinations, Allergy/Immunology: Negative for hives, rash, and allergies, Endocrine: Negative for neck swelling, polydipsia, polyuria, polyphagia, and marked weight changes, Hematologic/Lymphatic: Negative for swollen nodes, abnormal bleeding, and unusual bruising. Respiratory: Positive for cough, with no reported sputum, shortness of breath, at rest. Exam: 00:04 Head/Face: Normocephalic, atraumatic. Eyes: Pupils equal round and reactive to light, naomi extra-ocular motions intact. Lids and lashes normal. Conjunctiva and sclera are non-icteric and not injected. Cornea within normal limits. Periorbital areas with no swelling, redness, or edema. ENT: Nares patent. No nasal discharge, no septal abnormalities noted. Tympanic membranes are normal and external auditory canals are clear. Oropharynx with no redness, swelling, or masses, exudates, or evidence of obstruction, uvula midline. Mucous membranes moist. Neck: Trachea midline, no thyromegaly or masses palpated, and no cervical lymphadenopathy. Supple, full range of motion without nuchal rigidity, or vertebral point tenderness. No Meningismus. Chest/axilla: Normal chest wall appearance and motion. Nontender with no deformity. No lesions are appreciated. Abdomen/GI: Soft, non-tender, with normal bowel sounds. No distension or tympany. No guarding or rebound. No evidence of tenderness throughout. Back: No spinal tenderness. No costovertebral tenderness. Full range of motion. Female : Normal external genitalia. Skin: Warm, dry with normal turgor. Normal color with no rashes, no lesions, and no evidence of cellulitis. MS/ Extremity: Pulses equal, no cyanosis. Neurovascular intact. Full, normal range of motion. Psych: Awake, alert, with orientation to person, place and time. Behavior, mood, and affect are within normal limits. 00:04 Constitutional: The patient appears in obvious distress, mildly distressed. 00:04 Cardiovascular: Rate: tachycardic, Rhythm: regular, Pulses: Pulses are 4+ in bilateral radial, brachial, femoral, popliteal, posterior tibial and and dorsalis pedis arteries.. Heart sounds: normal, Edema: is not appreciated, JVD: is not appreciated. 00:04 Respiratory: the patient does not display signs of respiratory distress, Respirations: labored breathing, that is mild, Breath sounds: decreased breath sounds, rhonchi, that are mild, are scattered. 00:16 ECG was reviewed by the Attending Physician. [facility] Vital Signs: 10/24 23:53 BP 102 / 79; Pulse 120; Resp 16; Temp 98.6; Pulse Ox 97% on R/A; Weight 72.57 kg; rv 10/25 01:27 BP 118 / 88; Pulse 122; Resp 16; Pulse Ox 100% ; ea 03:43 BP 124 / 84; Pulse 128; Resp 20; Pulse Ox 99% ; ea MDM: 00:04 Differential diagnosis: Bronchitis CHF exacerbation, Chronic Obstructive Pulmonary naomi Disease pneumonia, pulmonary edema, Pulmonary Embolism reactive airway disease, Sepsis. Antibiotic administration: zosyn. Differential Diagnosis altered mental status, sepsis. The patient's Wells Deep Vein Thrombosis Score was calculated as follows: Heart Rate >100 BPM (1.5 Pts) Imm/Surg in last 4 wks (1.5 Pts) Total Score: 3-6 Pts - Mod Risk. The patient's pulmonary embolism risk score was calculated as follows: the patients heart rate is greater than 100 beats per minute (1.5 Pts) patient has experienced immobilization or surgery in the last four weeks (1.5 Pts) Total Score: 3-6 points. This patient was found to be at moderate risk for a pulmonary embolism by using the Well's assessment criteria. Immunization status: Influenza vaccine: Data reviewed: vital signs, nurses notes, EMS record, lab test result(s), EKG, radiologic studies, plain films. Data interpreted: property assessment monitor: rate is 120 beats/min, rhythm is regular. Data interpreted: Pulse oximetry: on room air is 89 %. Test interpretation: by ED physician or midlevel provider: ECG, plain radiologic studies. 00:15 Patient medically screened. [facility] 10/25 00:02 Order name: Basic Metabolic Panel [facility] 10/25 00:02 Order name: CBC with Diff [facility] 10/25 00:02 Order name: LFT's [facility] 10/25 00:02 Order name: Magnesium [facility] 10/25 00:02 Order name: NT PRO-BNP [facility] 10/25 00:02 Order name: PT-INR [facility] 10/25 00:02 Order name: Troponin (emerg Dept Use Only) [facility] 10/25 00:02 Order name: Blood Culture Adult (2) [facility] 10/25 00:02 Order name: Lactate [facility] 10/25 00:02 Order name: Lipase [facility] 10/25 00:02 Order name: Urine Culture [facility] 10/25 00:02 Order name: COVID-19 [facility] 10/25 00:29 Order name: Urine Dipstick--Ancillary (enter results) tt3 10/25 01:01 Order name: Basic Metabolic Panel; Complete Time: 01:26 EDMS 10/25 00:02 Order name: XRAY Chest (1 view) [facility] 10/25 00:29 Order name: CT Stone Protocol [facility] 10/25 01:01 Order name: NT PRO-BNP; Complete Time: 01:26 EDMS 10/25 01:01 Order name: Magnesium; Complete Time: 01:26 EDMS 10/25 01:03 Order name: Lactate; Complete Time: : EDMS 10/25 01:16 Order name: CBC with Automated Diff; Complete Time: 01: EDMS 10/25 01:18 Order name: Protime (+INR); Complete Time: 01:26 EDMS 10/25 02:06 Order name: CORONAVIRUS EDDE 10/25 03:20 Order name: SARS-COV-2 RT PCR EDDE 10/25 04:21 Order name: Glucose, Ancillary Testing EDDE 10/25 00:02 Order name: EKG; Complete Time: 00:04 [facility] 10/25 00:02 Order name: Cardiac monitoring; Complete Time: 00:40 [facility] 10/25 00:02 Order name: EKG - Nurse/Tech; Complete Time: 00:40 [facility] 10/25 00:02 Order name: IV Saline Lock; Complete Time: 00:40 [facility] 10/25 00:02 Order name: Labs collected and sent; Complete Time: 00:40 [facility] 10/25 00:02 Order name: O2 Per Protocol; Complete Time: 00:40 [facility] 10/25 00:02 Order name: O2 Sat Monitoring; Complete Time: 00:40 [facility] 10/25 00:02 Order name: Urine Dipstick-Ancillary (obtain specimen); Complete Time: 01:25 [facility] 10/25 00:55 Order name: Straight Cath - Urine; Complete Time: 00:55 ea EC:16 Rate is 123 beats/min. Rhythm is regular. QRS [place] is Normal. CO interval is shortened [facility] at 72 msec. QRS interval is normal. QT interval is normal. No Q waves. T waves are Normal. No ST changes noted. Clinical impression: Sinus tachycardia. Interpreted by me. Reviewed by me. Administered Medications: 00:15 Drug: NS 0.9% 1000 ml Route: IV; Rate: 1 bolus; Site: right antecubital; rv 01:50 Follow up: IV Status: Completed infusion; IV Intake: 1000ml rv 00:15 Drug: Pepcid 20 mg Route: IVP; Site: right antecubital; rv 01:51 Follow up: Response: No adverse reaction rv 00:40 Drug: Zosyn 3.375 grams Route: IVPB; Infused Over: 60 mins; Site: right antecubital; rv 01:50 Follow up: IV Status: Completed infusion; IV Intake: 100ml rv 00:40 Drug: Xopenex 1.25 mg Route: Inhalation; rv 01:51 Follow up: Response: No adverse reaction rv 00:40 Drug: AtroVENT Aerosol 0.5 mg Route: Inhalation; rv 01:51 Follow up: Response: No adverse reaction rv 01:49 Drug: D50W 50 ml Route: IVP; Site: right antecubital; rv 02:24 Follow up: Response: No adverse reaction ea 01:50 Drug: NS 0.9% 1000 ml Route: IV; Rate: 1 bolus; Site: right antecubital; rv 01:50 Drug: NS 0.9% 1000 ml Route: IV; Rate: 125 ml/hr; Site: right antecubital; rv 02:24 Follow up: IV Status: Infusion continued upon admission ea Disposition: 10/25/20 01:32 Hospitalization ordered by Gopal Schmidt for Inpatient Admission. Preliminary diagnosis are Dehydration, Urinary tract infection, site not specified, Acute kidney failure - on chronic, Pneumonia, unspecified organism - aspiration, Elevated white blood cell count, Hypercalcemia, Hypoglycemia, unspecified. - Bed requested for Telemetry/MedSurg (Inpatient). - Status is Inpatient Admission. rv - Condition is Fair. - Problem is new. - Symptoms have improved. Signatures: Dispatcher [employer] EDMS Fela Gillespie RN RN mw Anderson, Corey, MD MD cha Attema, Lee, SPARKER AND PATCHER-C SPARKER AND PATCHER-Cla1 Vee Pink RN RN Jalil Judd RN RN rv Corrections: (The following items were deleted from the chart) 01:36 01:32 Hospitalization Ordered by Ashvin Cardona DO for Inpatient Admission. Preliminary [facility] diagnosis is Dehydration; Urinary tract infection, site not specified; Acute kidney failure - on chronic; Pneumonia, unspecified organism - aspiration; Elevated white blood cell count; Hypercalcemia. Bed requested for Telemetry/MedSurg (Inpatient). Status is Inpatient Admission. Condition is Fair. Problem is new. Symptoms have improved. [facility] 01:53 01:36 10/25/2020 01:32 Hospitalization Ordered by Ashvin Cardona DO for Inpatient mw Admission. Preliminary diagnosis is Dehydration; Urinary tract infection, site not specified; Acute kidney failure - on chronic; Pneumonia, unspecified organism - aspiration; Elevated white blood cell count; Hypercalcemia; Hypoglycemia, unspecified. Bed requested for Telemetry/MedSurg (Inpatient). Status is Inpatient Admission. Condition is Fair. Problem is new. Symptoms have improved. [facility] 02:15 01:53 10/25/2020 01:32 Hospitalization Ordered by Ashvin Cardona DO for Inpatient la1 Admission. Preliminary diagnosis is Dehydration; Urinary tract infection, site not specified; Acute kidney failure - on chronic; Pneumonia, unspecified organism - aspiration; Elevated white blood cell count; Hypercalcemia; Hypoglycemia, unspecified. Bed requested for [facility] ER HOLD. Status is Inpatient Admission. Condition is Fair. Problem is new. Symptoms have improved. 03:27 02:15 10/25/2020 01:32 Hospitalization Ordered by Gopal Schmidt MD for Inpatient mw Admission. Preliminary diagnosis is Dehydration; Urinary tract infection, site not specified; Acute kidney failure - on chronic; Pneumonia, unspecified organism - aspiration; Elevated white blood cell count; Hypercalcemia; Hypoglycemia, unspecified. Bed requested for [facility] ER HOLD. Status is Inpatient Admission. Condition is Fair. Problem is new. Symptoms have improved. la1 04:43 03:27 10/25/2020 01:32 Hospitalization Ordered by Gopal Schmidt MD for Inpatient rv Admission. Preliminary diagnosis is Dehydration; Urinary tract infection, site not specified; Acute kidney failure - on chronic; Pneumonia, unspecified organism - aspiration; Elevated white blood cell count; Hypercalcemia; Hypoglycemia, unspecified. Bed requested for Telemetry/MedSurg (Inpatient). Status is Inpatient Admission. Condition is Fair. Problem is new. Symptoms have improved.
[2020-10-25] MEDS ORDERED: NA CHLORIDE 0.9% 0 ML ONE (01:45)
[2020-10-25] MEDS ORDERED: D50W 50 ML IV ONE (01:53)
[2020-10-25] MEDS ORDERED: NA CHLORIDE 0.9% 2,000 ML ONE (03:03)
[2020-10-25] MEDS ORDERED: INSULIN -REGULAR HUMAN 50 UNIT/0.5 ML ML ONE (03:03)
[2020-10-25] MEDS ORDERED: ALBUTEROL 2.5 MG/3 ML NEB SOL NEB PRN (04:44)
[2020-10-25] MEDS: NA CHLORIDE 0.9% 1,000 ML IV SCH ×3 (04:44→19:00)
[2020-10-25] MEDS ORDERED: MORPHINE 4 MG/ML SYR IV PRN (04:44)
[2020-10-25] MEDS ORDERED: ONDANSETRON 4 MG/2 ML VIAL IV PRN (04:44)
[2020-10-25] MEDS ORDERED: IPRATROPIUM BROM 0.5MG/2.5ML NEB PRN (04:44)
[2020-10-25 05:28] VITALS: BMI 29.2
--- NOTE | 2020-10-25 07:11 | EKG ---
Test Date: 2020-10-25 Test Time: 00:07:21 Camp Attendant: RV MEASUREMENT RESULTS: Intervals: Rate: 123 CA: 72 QRSD: 80 QT: 428 QTc: 612 [place]: P: CA: 72 QRS: 3 T: 59 INTERPRETIVE STATEMENTS: Sinus tachycardia with short CA Inferior infarct, age undetermined Abnormal ECG Compared to ECG 08/05/2020 12:38:51 Short CA interval now present Myocardial infarct finding still present Electronically Signed On 10-25-20 07:09:00 FISH GRADER by Andrew Ferris
--- NOTE | 2020-10-25 08:30 | RAD REPORT ---
EXAM DESCRIPTION: RAD - Chest Single View - 10/25/2020 12:23 am CLINICAL HISTORY: COUGH COMPARISON: August 05 TECHNIQUE: AP portable chest image was obtained 10/25/2020 12:23 reynoso supine position . FINDINGS: Lung volumes are low. No mass, consolidation or diffuse pulmonary edema pattern. Interstit ial pattern is not substantially different from comparison when adjusting for the lung volumes and [place] position. No focal aspiration pneumonia is identifiable. Parenchymal stranding in the medial lef t base not outside of normal range for low lung volume. Heart and vasculature are normal. No measurab le pleural effusion and no pneumothorax. No acute bony abnormality seen. No acute aortic findings cliff pected. IMPRESSION: No acute cardiopulmonary process. No significant change from comparison study.
[2020-10-25] MEDS: PIPER/TAZO/NS 3.375gm 3.375 GM/100 ML BAG IVPB SCH ×2 (09:04→16:09)
[2020-10-25] MEDS: FAMOTIDINE 20 MG/2 ML VIAL IV SCH ×2 (09:04→22:13)
--- NOTE | 2020-10-25 10:57 | RAD REPORT ---
EXAM DESCRIPTION: CT - Stone Protocol - 10/25/2020 6:54 am CLINICAL HISTORY: FLANK PAIN COMPARISON: CT abdomen and pelvis with contrast 07/13/2020 TECHNIQUE: Axial unenhanced CT imaging of the abdomen and pelvis performed. Reformatted coronal and sagittal images reviewed. A dose reduction technique was utilized with automated exposure control according to patient size. FINDINGS: There is minimal right and left lower lobe atelectasis. There are centrilobular nodular opacities within the right middle lobe in the lateral segment as well as both lower lobes. No pleur al fluid. Heart is normal in size. Unremarkable liver. Normal gallbladder, spleen, pancreas, adrenal glands. There is a duplex renal collecting system bilaterally. There were nonobstructing stones in the right renal pelvis up to 1. 0 cm. There are nonobstructing calculi within the left renal pelvis. The largest is in the upper moiety up to 8 mm. No hydronephrosis. The aorta and inferior vena cava are normal in caliber. There is mild aortic atherosclerosis extend ing into the iliac vessels. No retroperitoneal lymphadenopathy. There is a gastrostomy tube within the gastric antrum. Small bowel loops appear normal. Appendix has been resected. Minimal diverticulosis in the distal descending and proximal sigmoid colon. No diverticulitis. There is no ascites or free air. There is diastases recti. Unremarkable decompressed bladder. Normal uterus. No pelvic free fluid. Normal lumbar lordosis. There is inferior lumbosacral facet arthropathy. Bony pelvis appears intact. There are signifi cant dystrophic calcifications adjacent to the left ischial tuberosity and posterior column of the le ft acetabulum suggestive of remote trauma. IMPRESSION: 1. Duplex right and left renal collecting system with nonobstructing bilateral nephrol ithiasis. The largest stone in the right kidney is 1 cm. The largest in the left kidney is 8 mm. 2. Mild descending and sigmoid colon diverticulosis without diverticulitis. 3. Bilateral lower lobe and right middle lobe centrilobular infiltrates with bilateral lower lobe a telectasis. Electronically signed by: Kathy Pavon DO 10/25/2020 2:14 AM UPHOLSTERER OUTSIDE Due to temporary technical issues with the PACS/Fluency reporting system, reports are being signed by the in house radiologist without review as a courtesy to ensure prompt reporting. The interpreting r adiologist is fully responsible for the content of the report.
--- NOTE | 2020-10-25 15:14 | RAD REPORT ---
EXAM DESCRIPTION: CT - Head Brain Wo Cont - 10/25/2020 2:55 pm CLINICAL HISTORY: Lethargic Headache, drowsiness COMPARISON: Stone Protocol dated 10/25/2020 TECHNIQUE: All CT scans are performed using dose optimization technique as appropriate and may inclu de automated exposure control or mA/KV adjustment according to patient size. FINDINGS: No intracranial hemorrhage, hydrocephalus or extra-axial fluid collection.Significant arslan ventricular and deep white matter chronic microvascular ischemic changes are present.No areas of brai n edema or evidence of midline shift. Areas of gliosis are noted in the distribution of the right mid dle cerebral artery as well as the left anterior middle cerebral artery and left posterior cerebral a rtery suggesting multiple prior infarcts. Dystrophic calcifications are seen in the right frontotempo ral region. The paranasal sinuses and mastoids are clear. The calvarium is intact. IMPRESSION: Evidence of multiple previous areas of infarction noted bilaterally. No definitive intr acranial acute findings seen. Follow-up MR brain imaging would be of value for further clarification.
--- NOTE | 2020-10-25 15:16 | RAD REPORT ---
EXAM DESCRIPTION: RAD - Chest Single View - 10/25/2020 3:00 pm CLINICAL HISTORY: wheezes, chest tightness Chest pain. COMPARISON: Chest Single View dated 10/25/2020; Chest Single View dated 08/05/2020; Chest Single View dated 08/03/2020 FINDINGS: Portable technique limits examination quality. Moderate bilateral interstitial lung opacities are present, greater on the right. This may represent infection or pulmonary edema. The heart is mildly enlarged in size. No displaced fractures. IMPRESSION: Moderate bilateral interstitial lung opacities, greater on the right. Infection or pulmo nary edema are possibilities.
[2020-10-25] MEDS: ACETAMINOPHEN 500 MG TAB FT PRN (16:01)
--- NOTE | 2020-10-25 18:16 | P.HP ---
Certification for Inpatient Patient admitted to: Inpatient With expected LOS: >2 Midnights Patient will require the following post-hospital care: Care Home Practitioner: I am a practitioner with admitting privileges, knowledge of patient current condition, hospital course, and medical plan of care. Services: Services provided to patient in accordance with Admission requirements found in Title 42 Section 412.3 of the Code of Federal Regulations Patient History Date of Service: 10/25/20 Primary Care Provider: Brayan Reason for admission: pneumonia History of Present Illness: Former patient of mine in [facility] She has a history of multiple strokes due to uncontrolled dm. She has hemiplegia and is bed bound with a peg tube. She had been pulling out her tracheostomy tube. Was able to speak enough to state she does not wish it to be replaced and does not want to be intubated. Asked for DNR status. The patient was on Peg feeding. However she wished to eat orally she failed all swallow evaluations. However considering quality of life. We decided on comfort feeds. The patients family transfered her care at that time. She seems to have aspirated and was transported to the hospital. She is not able to give a history She has a renal failure and bilateral infiltrates. With labored breathing. Allergies iodine Allergy (Unknown, Verified 08/05/20 18:06) Itching/Hives/Rash levofloxacin Allergy (Unknown, Verified 08/05/20 18:06) Itching/Hives/Rash Home Medications: Acetaminophen 160 mg FT TIDP PRN 08/06/20 Albuterol Sulfate [Albuterol Sulfate 0.083% Neb Soln] 2.5 mg IH Q8H 08/06/20 Amlodipine [Norvasc] 5 mg FT DAILY 08/06/20 Apixaban [Eliquis] 2.5 mg FT DAILY 08/06/20 Ascorbic Acid [Vitamin C] 500 mg PO DAILY 08/06/20 Aspirin 81 mg FT DAILY 08/06/20 Atorvastatin Calcium [Lipitor] 80 mg FT BEDTIME 08/06/20 Buspirone HCl [Buspar] 5 mg FT TID 08/06/20 Chlorhexidine Gluconate [Peridex] 15 ml MM Q4H 08/06/20 Insulin Lispro [Humalog] 0 unit SQ ACHS 08/06/20 Ipratropium [place] 0.2 mg IH Q8H 08/06/20 L.acidoph/L.bulg/B.bif/S.therm [Bacid Caplet] 1 tab FT DAILY 08/06/20 Lactulose 10 gm PO TIDP PRN 08/06/20 Magnesium Oxide [Mag 0X Tab] 400 mg FT BID 08/06/20 Metoprolol Tartrate [Lopressor] 25 mg FT Q12H 08/06/20 Ondansetron [Zofran] 4 mg FT Q6H PRN 08/06/20 Pantoprazole [Protonix Tab] 40 mg FT DAILY 08/06/20 Simethicone 80 mg PO BID 08/06/20 Bismuth Subsalicylate [Bismatrol] 262 mg FT TID 10/25/20 Melatonin/Pyridoxine [Melatonin 5 mg Tablet] 5 mg FT BEDTIME 10/25/20 clonazePAM [Klonopin*] 0.5 mg FT BID 10/25/20 - Past Medical/Surgical History Has patient received pneumonia vaccine in the past: No Diabetic: Yes -: htn -: DM -: CVA -: anxiety -: chronic respiratory failure -: GERD -: trachesotomy -: henrique knee replacement -: appy -: tubaligation - Family History Mother -: Heart disease, Hypertension, Diabetes, Stroke Father -: Cancer - Social History Smoking Status: Never smoker Alcohol use: No CD- Drugs: No Caffeine use: No Place of Residence: Senior Living Review of Systems is unable to be obtained Physical Examination - Vital Signs Temperature: 100.7 F Blood Pressure: 111/59 Pulse: 125 Respirations: 20 Pulse Ox (%): 98 - Physical Exam General: Unresponsive HEENT: Atraumatic, PERRLA, Mucous membr. moist/pink, EOMI, Sclerae nonicteric Neck: Other Respiratory: Rhonchi/gurgles Cardiovascular: No edema, Normal pulses, Regular rate/rhythm Gastrointestinal: Normal bowel sounds Musculoskeletal: No clubbing, No swelling Integumentary: No rashes - Studies Laboratory Data (last 24 hrs) 10/25/20 00:10: PT 14.0 H, INR 1.19 10/25/20 00:10: Sodium 158 H, Potassium 3.5, BUN 53 H, Creatinine 2.14 H, Glucose 66 L, Magnesium 2.0, Total Bilirubin 0.7, AST 189 H, ALT 144 H, Alkaline Phosphatase 158 H, Lipase 94 10/25/20 00:10: WBC 12.3 H, Hgb 15.5 H, Hct 48.1 H, Plt Count 288 10/25/20 00:10: Sodium Cancelled, Potassium Cancelled, BUN Cancelled, Creatinine Cancelled, Glucose Cancelled 10/25/20 00:02: Lipase Cancelled Assessment and Plan - Problems (Diagnosis) (1) Aspiration pneumonia Current Visit: Yes Status: Acute Plan: continue fluids breathing treatments and zosyn. Will await blood cultures Qualifiers: Aspiration pneumonia type: unspecified Laterality: bilateral Lung location: lower lobe of lung Qualified Code(s): J69.0 - Pneumonitis due to inh alation of food and vomit (2) Renal failure Current Visit: Yes Status: Acute Plan: conitnue fluids and yadav catheter. Will consult Dr. 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 she has aspiration Discharge Plan: Senior Living Plan to discharge in: Greater than 2 days - Advance Directives Does patient have a Living Will: Yes Does patient have a Durable POA for Healthcare: Yes - Code Status/Comfort Care Code Status: Do Not Attempt Resuscitat Physician Review: Patient Assessed, Agree with Above Assessment and Plan Critical Care: No Time Spent Managing Pts Care (In Minutes): 70
[2020-10-25] MEDS ORDERED: GLUCAGON 1 MG/VIAL IM PRN (18:21)
[2020-10-25] MEDS ORDERED: D50W 25 GM/50 ML SYRINGE IV PRN (18:21)
[2020-10-25 19:02] LABS: Urine Appearance CLOUDY; Urine Bilirubin NEGATIVE (NEG); Urine Blood 1+ (NEG); Urine Color YELLOW; Urine Glucose NEGATIVE (NEG); Urine Protein 1+ (NEG); Urine Urobilinogen 0.2 mg/dL (0.2-1.0); Urine pH 5.5 (5.0-7.0)
[2020-10-25 19:06] LABS: Urine Microscopic Reflex ORDER UMIC
[2020-10-25 19:51] LABS: Urine Bacteria LOADED /HPF (<20)
[2020-10-25 19:52] LABS: Urine Yeast MANY (NONE SEEN)
[2020-10-25] MEDS: INSULIN -REGULAR HUMAN 50 UNIT/0.5 ML ML SQ SCH (21:00)
[2020-10-25] MEDS: ENOXAPARIN 30 MG/0.3 ML SQ SCH (22:13)
[2020-10-26] MEDS: PIPER/TAZO/NS 3.375gm 3.375 GM/100 ML BAG IVPB SCH ×3 (00:36→17:24)
[2020-10-26 01:16] LABS: Urine Blood 3+ (NEG); Urine Glucose NEGATIVE (NEG); Urine Specific Gravity >1.030 (1.005-1.030)
[2020-10-26 01:17] LABS: Urine Protein 2+ (NEG)
[2020-10-26] MEDS: NA CHLORIDE 0.9% 1,000 ML IV SCH ×2 (03:21→05:00)
[2020-10-26 05:35] LABS: Absolute Lymphocytes (CBC) 2.9 K/uL (0.7-4.9); Basophils % 0.3 % (0-1.3); Lymphocytes % 18.1 % (15.3-44.8); MPV 12.2 fL (7.6-11.3); RBC Red Blood Cell Count 4.45 M/uL (3.86-4.86)
[2020-10-26 05:59] LABS: Albumin 2.1 g/dL (3.4-5.0); Magnesium 1.7 mg/dL (1.8-2.4); Potassium 3.2 mmol/L (3.5-5.1); Protein, Total 7.5 g/dL (6.4-8.2); Troponin I 0.02 ng/mL (0.0-0.045)
[2020-10-26] MEDS: INSULIN -REGULAR HUMAN 50 UNIT/0.5 ML ML SQ SCH ×4 (07:30→21:00)
[2020-10-26] MEDS ORDERED: MAGNESIUM SULFATE 1 gm IVPB 1 GM/100 ML BAG IV ONE (08:00)
--- NOTE | 2020-10-26 08:05 | P.CNS ---
Date of Consult: 10/26/20 Reason for Consult: Hypernatremia/ TONY Requesting Physician: Gopal Schmidt Primary Care Provider: Brayan Chief Complaint: pneumonia History of Present Illness: She has a history of multiple strokes due to uncontrolled dm. She has hemiplegia and is bed bound with a peg tube. She had been pulling out her tracheostomy tube. Was able to speak enough to state she does not wish it to be replaced and does not want to be intubated. Asked for DNR status. The patient was on Peg feeding. However she wished to eat orally she failed all swallow evaluations. However considering quality of life. We decided on comfort feeds. The patients family transfered her care at that time. She seems to have aspirated and was transported to the hospital. She is not able to give a history She has a renal failure and bilateral infiltrates. With labored breathing. 00:02 This 60 yrs old Black Female presents to ER via EMS with complaints of dyspnea, naomi aspiration and hypoxia. 00:02 The patient has shortness of breath at rest. Onset: The symptoms/episode began/occurred naomi just prior to arrival. Duration: The symptoms are continuous, and are steadily getting worse. The patient's shortness of breath is aggravated by coughing, supine position, is alleviated by rest, sitting up, application of supplemental oxygen. Associated signs and symptoms: Pertinent positives: non-productive cough. Severity of symptoms: At their worst the symptoms were moderate in the emergency department the symptoms have improved mildly. The patient has experienced similar episodes in the past, a few times. Allergies iodine Allergy (Unknown, Verified 08/05/20 18:06) Itching/Hives/Rash levofloxacin Allergy (Unknown, Verified 08/05/20 18:06) Itching/Hives/Rash Home Medications: Acetaminophen 160 mg FT TIDP PRN 08/06/20 Albuterol Sulfate [Albuterol Sulfate 0.083% Neb Soln] 2.5 mg IH Q8H 08/06/20 Amlodipine [Norvasc] 5 mg FT DAILY 08/06/20 Apixaban [Eliquis] 2.5 mg FT DAILY 08/06/20 Ascorbic Acid [Vitamin C] 500 mg PO DAILY 08/06/20 Aspirin 81 mg FT DAILY 08/06/20 Atorvastatin Calcium [Lipitor] 80 mg FT BEDTIME 08/06/20 Buspirone HCl [Buspar] 5 mg FT TID 08/06/20 Chlorhexidine Gluconate [Peridex] 15 ml MM Q4H 08/06/20 Insulin Lispro [Humalog] 0 unit SQ ACHS 08/06/20 Ipratropium [place] 0.2 mg IH Q8H 08/06/20 L.acidoph/L.bulg/B.bif/S.therm [Bacid Caplet] 1 tab FT DAILY 08/06/20 Lactulose 10 gm PO TIDP PRN 08/06/20 Magnesium Oxide [Mag 0X Tab] 400 mg FT BID 08/06/20 Metoprolol Tartrate [Lopressor] 25 mg FT Q12H 08/06/20 Ondansetron [Zofran] 4 mg FT Q6H PRN 08/06/20 Pantoprazole [Protonix Tab] 40 mg FT DAILY 08/06/20 Simethicone 80 mg PO BID 08/06/20 Bismuth Subsalicylate [Bismatrol] 262 mg FT TID 10/25/20 Melatonin/Pyridoxine [Melatonin 5 mg Tablet] 5 mg FT BEDTIME 10/25/20 clonazePAM [Klonopin*] 0.5 mg FT BID 10/25/20 - Past Medical/Surgical History Diabetic: Yes -: htn -: DM -: CVA -: anxiety -: chronic respiratory failure -: GERD -: trachesotomy -: henrique knee replacement -: appy -: tubaligation - Family History Mother Medical History: Heart disease, Hypertension, Diabetes, Stroke Father Medical History: Cancer - Social History Smoking Status: Unknown if ever smoked Alcohol use: No CD- Drugs: No Caffeine use: No Place of Residence: [facility]ust[facility]ial Physical Examination Temp Pulse Resp BP Pulse Ox 98.3 F 105 H 18 122/86 100 10/26/20 04:00 10/26/20 04:00 10/26/20 04:00 10/26/20 04:00 10/26/20 04:00 Blood work reviewed in the chart. Imagings Data: EXAM DESCRIPTION: CT - Stone Protocol - 10/25/2020 6:54 am CLINICAL HISTORY: FLANK PAIN COMPARISON: CT abdomen and pelvis with contrast 07/13/2020 TECHNIQUE: Axial unenhanced CT imaging of the abdomen and pelvis performed. Reformatted coronal and sagittal images reviewed. A dose reduction technique was utilized with automated exposure control according to patient size. FINDINGS: There is minimal right and left lower lobe atelectasis. There are centrilobular nodular opacities within the right middle lobe in the lateral segment as well as both lower lobes. No pleural fluid. Heart is normal in size. Unremarkable liver. Normal gallbladder, spleen, pancreas, adrenal glands. There is a duplex renal collecting system bilaterally. There were nonobstructing stones in the right renal pelvis up to 1.0 cm. There are nonobstructing calculi within the left renal pelvis. The largest is in the upper moiety up to 8 mm. No hydronephrosis. The aorta and inferior vena cava are normal in caliber. There is mild aortic atherosclerosis extending into the iliac vessels. No retroperitoneal lymphaden opathy. There is a gastrostomy tube within the gastric antrum. Small bowel loops appear normal. Appendix has been resected. Minimal diverticulosis in the distal descending and proximal sigmoid colon. No diverticulitis. There is no ascites or free air. There is diastases recti. Unremarkable decompressed bladder. Normal uterus. No pelvic free fluid. Normal lumbar lordosis. There is inferior lumbosacral facet arthropathy. Bony pelvis appears intact. There are significant dystrophic calcifications adjacent to the left ischial tuberosity and posterior column of the left acet abulum suggestive of remote trauma. IMPRESSION: 1. Duplex right and left renal collecting system with nonobstructing bilateral nephrolithiasis. The largest stone in the right kidney is 1 cm. The largest in the left kidney is 8 mm. 2. Mild descending and sigmoid colon diverticulosis without diverticulitis. 3. Bilateral lower lobe and right middle lobe centrilobular infiltrates with bilateral lower lobe atelectasis. EXAM DESCRIPTION: RAD - Chest Single View - 10/25/2020 3:00 pm CLINICAL HISTORY: wheezes, chest tightness Chest pain. COMPARISON: Chest Single View dated 10/25/2020; Chest Single View dated 08/05/2020; Chest Single View dated 08/03/2020 FINDINGS: Portable technique limits examination quality. Moderate bilateral interstitial lung opacities are present, greater on the right. This may represent infection or pulmonary edema. The heart is mildly enlarged in size. No displaced fractures. IMPRESSION: Moderate bilateral interstitial lung opacities, greater on the right. Infection or pulmonary edema are possibilities. Conclusions/Impression: A/ TONY due to hypovolemia. Hypernatremia Hypokalemia Hypomagnesemia CKD III DM II with CKD Moderate malnutrition Acute cystitis P/ Continue current POC and Medications Change IVF to D5W with potassium. Give a dose of IV potassium. Repeat BMP at 1700. Continue abx. No NSAIDs. AM labs. Daily weight. Thank you kindly for the consultation.
[2020-10-26] MEDS: FAMOTIDINE 20 MG/2 ML VIAL IV SCH ×3 (08:24→21:01)
[2020-10-26] MEDS ORDERED: KCL 20 MEQ/100 mL IVPB 20 MEQ/100 ML BAG IV SCH ×2 (09:00→22:00)
[2020-10-26] MEDS: D5W 1,000 ML with POTASSIUM CL 20 MEQ IV SCH ×4 (10:00→19:06)
[2020-10-26] MEDS: ACETAMINOPHEN 500 MG TAB FT PRN (10:08)
--- NOTE | 2020-10-26 11:44 | P.PN ---
Subjective Date of Service: 10/26/20 Primary Care Provider: Brayan Chief Complaint: pneumonia Subjective: No new changes Patient nodded yes to having me as her physican and she does not want to be intubate. Catherine the nurse was a wittness Review of Systems non verbal Physical Examination - Vital Signs Temperature: 100.0 F Blood Pressure: 126/99 Pulse: 113 Respirations: 23 Pulse Ox (%): 100 - Physical Exam General: Alert, In no apparent distress HEENT: Atraumatic, PERRLA, EOMI Neck: Supple, JVD not distended Respiratory: Clear to auscultation bilaterally, Normal air movement Cardiovascular: Regular rate/rhythm, Normal S1 S2 Gastrointestinal: Normal bowel sounds, No tenderness Musculoskeletal: No tenderness Integumentary: No rashes Neurological: Normal speech, Normal tone, Normal affect Lymphatics: No axilla or inguinal lymphadenopathy - Studies Laboratory Data (last 24 hrs) 10/25/20 00:10: Sodium 158 H, Potassium 3.5, BUN 53 H, Creatinine 2.14 H, Glucose 66 L, Magnesium 2.0, Total Bilirubin 0.7, AST 189 H, ALT 144 H, Alkaline Phosphatase 158 H, Lipase 94 Assessment & Plan - Problems (Diagnosis) (1) Aspiration pneumonia Current Visit: Yes Status: Acute Plan: continue fluids breathing treatments and zosyn. Will await blood cultures Qualifiers: Aspiration pneumonia type: unspecified Laterality: bilateral Lung location: lower lobe of lung Qualified Code(s): J69.0 - Pneumonitis due to inhalation of food and vomit (2) Renal failure Current Visit: Yes Status: Acute Plan: 10/[address] Hamlin. Will continue to follow her sodium and creatine Qualifiers: Renal failure chronicity: acute (3) DM2 (diabetes mellitus, type 2) Current Visit: No Status: Acute Plan: will keep her on a sliding scale and follow accuchecks Qualifiers: Diabetes mellitus termite renewal inspector insulin use: with nursing home use Diabetes mellitus complication status: with circulatory complication (4) HTN (hypertension) Current Visit: No Status: Acute Plan: will hold off medications till she is more stable Qualifiers: (5) PEG (percutaneous endoscopic gastrostomy) status Current Visit: No Status: Acute Plan: will hold peg feedings. she has aspiration Discharge Plan: Longterm Plan to discharge in: Greater than 2 days - Code Status/Comfort Care Code Status Assessed: Yes Code Status: Do Not Attempt Resuscitat Physician Review: Patient Assessed, Agree with Above Assessment and Plan Critical Care: No Time Spent Managing Pts Care (In Minutes): 25
[2020-10-26] MEDS ORDERED: ALBUTEROL 2.5 MG/3 ML NEB SOL NEB PRN (17:00)
[2020-10-26] MEDS ORDERED: IPRATROPIUM BROM 0.5MG/2.5ML NEB PRN (17:00)
[2020-10-26] MEDS: ENOXAPARIN 30 MG/0.3 ML SQ SCH (17:27)
[2020-10-26 21:12] LABS: Potassium 3.3 mmol/L (3.5-5.1)
[2020-10-26 22:03] LABS: Arterial Blood Carboxyhemoglob 1.1 % (0-1.5); Blood Gas Oxyhemoglobin 92.5 % (94-97); Blood O2 Saturation 94.6 % (92-98.5)
[2020-10-26] MEDS ORDERED: NA CHLORIDE 0.9% 250 ML ONE (22:43)
[2020-10-27] MEDS: PIPER/TAZO/NS 3.375gm 3.375 GM/100 ML BAG IVPB SCH ×3 (00:52→16:33)
[2020-10-27] MEDS: D5W 1,000 ML with POTASSIUM CL 20 MEQ IV SCH ×6 (00:59→14:04)
[2020-10-27 06:33] LABS: Absolute Lymphocytes (CBC) 2.7 K/uL (0.7-4.9); Basophils % 0.3 % (0-1.3); Hematocrit 37.9 % (36.0-45.0); MPV 11.8 fL (7.6-11.3); RBC Red Blood Cell Count 4.11 M/uL (3.86-4.86)
[2020-10-27 06:53] LABS: Albumin 1.8 g/dL (3.4-5.0); Bilirubin Total 0.9 mg/dL (0.2-1.0); Potassium 3.2 mmol/L (3.5-5.1); Protein, Total 6.7 g/dL (6.4-8.2)
[2020-10-27] MEDS: INSULIN -REGULAR HUMAN 50 UNIT/0.5 ML ML SQ SCH ×4 (07:30→21:00)
[2020-10-27] MEDS: ACETAMINOPHEN 500 MG TAB FT PRN (07:53)
[2020-10-27] MEDS: FAMOTIDINE 20 MG/2 ML VIAL IV SCH (07:53)
--- NOTE | 2020-10-27 08:59 | P.PN ---
Subjective Date of Service: 10/27/20 Primary Care Provider: Brayan Chief Complaint: pneumonia Patient has ecoli in the urine. creatine has improved Review of Systems is unable to be obtained (can only nod yes and no) Physical Examination - Vital Signs Temperature: 101.2 F Blood Pressure: 112/55 Pulse: 92 Respirations: 18 Pulse Ox (%): 99 - Physical Exam General: Alert, In no apparent distress HEENT: Atraumatic, PERRLA, EOMI Neck: Supple, JVD not distended Respiratory: Clear to auscultation bilaterally, Normal air movement Cardiovascular: Regular rate/rhythm, Normal S1 S2 Gastrointestinal: Normal bowel sounds, No tenderness Musculoskeletal: No tenderness Integumentary: No rashes Neurological: Normal speech, Normal tone, Normal affect Lymphatics: No axilla or inguinal lymphadenopathy - Studies Laboratory Data (last 24 hrs) 10/25/20 00:10: Sodium 158 H, Potassium 3.5, BUN 53 H, Creatinine 2.14 H, Glucose 66 L, Magnesium 2.0, Total Bilirubin 0.7, AST 189 H, ALT 144 H, Alkaline Phosphatase 158 H, Lipase 94 Microbiology Data (last 24 hrs): 10/25/20 00:25 Catheterized Urine [place] Count - Final >100,000 CFU/ML. 10/25/20 00:25 Catheterized Urine - Final Escherichia Coli Esbl Assessment And Plan - Current Problems (Diagnosis) (1) Aspiration pneumonia Current Visit: Yes Status: Acute Plan: continue fluids breathing treatments and zosyn. Blood cultures negative. The patient can be discharged on clindamycin. She is still having fevers. Will hold off pt and peg feedins. Qualifiers: Aspiration pneumonia type: unspecified Laterality: bilateral Lung location: lower lobe of lung Qualified Code(s): J69.0 - Pneumonitis due to inhalation of food and vomit (2) Renal failure Current Visit: Yes Status: Acute Plan: 10/[address] Hamlin. Will continue to follow her sodium and creatine 10/27 improving. However her baseline creatine is 0.5 to 0.7 Qualifiers: Renal failure chronicity: acute (3) DM2 (diabetes mellitus, type 2) Current Visit: No Status: Acute Plan: will keep her on a sliding scale and follow accuchecks Qualifiers: Diabetes mellitus termite inspector insulin use: with skilled nursing use Diabetes mellitus complication status: with circulatory complication (4) HTN (hypertension) Current Visit: No Status: Acute Plan: will hold off medications till she is more stable Qualifiers: (5) PEG (percutaneous endoscopic gastrostomy) status Current Visit: No Status: Acute Plan: will hold peg feedings. she has aspiration (6) UTI (urinary tract infection) due to Enterococcus Current Visit: Yes Status: Acute Plan: is covered by zosyn. we can discharge on augmentin or neurontin. Discharge Plan: Long-Term Plan to discharge in: Greater than 2 days - Code Status/Comfort Care Code Status Assessed: No Physician Review: Patient Assessed, Agree with Above Assessment and Plan Critical Care: No Time Spent Managing PTS Care (In Minutes): 20
[2020-10-27] MEDS: KCL 20 MEQ/100 mL IVPB 20 MEQ/100 ML BAG IV SCH ×2 (11:48→14:04)
[2020-10-27] MEDS ORDERED: MORPHINE 2 MG/ML SYR IV PRN (13:58)
[2020-10-27] MEDS: ENOXAPARIN 30 MG/0.3 ML SQ SCH (16:33)
[2020-10-27] MEDS: GLUCERNA 1.5 CAL 1,000 ML BOT FT SCH ×2 (16:35→21:53)
--- NOTE | 2020-10-27 19:32 | P.PN ---
Date of Service: 10/27/20 Vital Signs Temp Pulse Resp BP Pulse Ox 99.3 F 90 20 125/70 100 10/27/20 16:00 10/27/20 16:00 10/27/20 16:00 10/27/20 16:00 10/27/20 16:00 Medications Acetaminophen (Acetaminophen 500 Mg Tab) 650 mg FT Q6H PRN PRN Reason: TEMP > 100' F Stop: 11/24/20 04:45 Last Admin: 10/27/20 07:53 Dose: 650 mg Documented by: Albuterol Sulfate (Albuterol 2.5 Mg/3 Ml Neb Adrianna) 2.5 mg NEB [id number] PRN PRN Reason: WHEEZING Stop: 11/24/20 04:45 Dextrose (D50w 25 Gm/50 Ml Syringe) 12.5 gm IV PRN PRN; Protocol PRN Reason: HYPOGLYCEMIA Stop: 11/24/20 18:22 Enoxaparin Sodium (Enoxaparin 30 Mg/0.3 Ml) 30 mg SQ DAILY 5 PM [facility] Stop: 11/24/20 21:01 Last Admin: 10/27/20 16:33 Dose: 30 mg Documented by: Enteral Nutritional Formula (Glucerna 1.5 Fernando 1,000 Ml Bot) 237 ml FT QID FRANCES Stop: 11/26/20 17:01 Last Admin: 10/27/20 16:35 Dose: 237 ml Documented by: Famotidine (Famotidine 20 Mg/2 Ml Vial) 20 mg IV DAILY FRANCES; Protocol Stop: 11/27/20 09:01 Glucagon (Glucagon 1 Mg/Vial) 1 mg IM 1X PRN; Protocol PRN Reason: HYPOGLYCEMIA Stop: 11/24/20 18:22 Piperacillin Sod/Tazobactam Sod (Zosyn 3.375 Gm/100 Ml Ns Ivpb) 3.375 gm in 100 mls @ 100 mls/hr IVPB Q8HR FRANCES; Protocol Stop: 11/24/20 09:01 Last Admin: 10/27/20 16:33 Dose: 100 mls Documented by: Potassium Chloride 20 meq/ (Dextrose/Water) 1,010 mls @ 100 mls/hr IV .Q10H6M FRANCES Stop: 11/25/20 09:01 Last Admin: 10/27/20 14:04 Dose: 1,010 mls Documented by: Insulin Human Regular (Insulin -Regular Human 50 Unit/0.5 Ml Ml) 0 unit SQ ACHS [facility]; Protocol Stop: 11/24/20 21:01 Last Admin: 10/27/20 16:15 Dose: Not Given Documented by: Ipratropium [place] (Ipratropium Brom 0.5mg/2.5ml) 0.5 mg NEB [id number] PRN PRN Reason: WHEEZING Stop: 11/24/20 04:45 L-Arginine/L-Glutamine/HMB (Elijah Packet) 1 pkt FT BID FRANCES Stop: 11/26/20 21:01 Morphine Sulfate (Morphine 2 Mg/Ml Syr) 2 mg IV Q4H PRN PRN Reason: Pain scale 8-10 (Severe) Stop: 11/26/20 13:59 Ondansetron HCl (Ondansetron 4 Mg/2 Ml Vial) 4 mg IV Q6H PRN PRN Reason: NAUSEA / VOMITING Stop: 11/24/20 04:45 Sodium Chloride (Flush Normal Saline 10 Ml) 10 ml IV BID [facility] Stop: 11/24/20 09:01 Last Admin: 10/27/20 07:53 Dose: 10 ml Documented by: Microbiology Results 10/25/20 00:25 Catheterized Urine [place] Count - Final >100,000 CFU/ML. 10/25/20 00:25 Catheterized Urine - Final Escherichia Coli Esbl 10/25/20 00:00 Blood - Blood Aerobic Blood Culture - Preliminary No growth in 24 hours. 10/25/20 00:00 Blood - Blood Anaerobic Blood Culture - Preliminary No growth in 24 hours. 10/25/20 00:10 Blood - Blood Aerobic Blood Culture - Preliminary No growth in 24 hours. 10/25/20 00:10 Blood - Blood Anaerobic Blood Culture - Preliminary No growth in 24 hours. Assessment/ Plan: Nephrology CPS stable without CP or SOB. No acute events overnight. Limited IH/ ROS due to lack of speech. Vitals, medications, blood work and imaging reviewed in the chart. NAD. Obese. DMM. Neck supple. CTA. RRR. Soft Abd. No C/C. LE Edema trace. No rash. Awake. No Speech. Blood work reviewed in the chart. Imagings Data: EXAM DESCRIPTION: CT - Stone Protocol - 10/25/2020 6:54 am CLINICAL HISTORY: FLANK PAIN COMPARISON: CT abdomen and pelvis with contrast 07/13/2020 TECHNIQUE: Axial unenhanced CT imaging of the abdomen and pelvis performed. Reformatted coronal and sagittal images reviewed. A dose reduction technique was utilized with automated exposure control according to patient size. FINDINGS: There is minimal right and left lower lobe atelectasis. There are centrilobular nodular opacities within the right middle lobe in the lateral segment as well as both lower lobes. No pleural fluid. Heart is normal in size. Unremarkable liver. Normal gallbladder, spleen, pancreas, adrenal glands. There is a duplex renal collecting system bilaterally. There were nonobstructing stones in the right renal pelvis up to 1.0 cm. There are nonobstructing calculi within the left renal pelvis. The largest is in the upper moiety up to 8 mm. No hydronephrosis. The aorta and inferior vena cava are normal in caliber. There is mild aortic atherosclerosis extending into the iliac vessels. No retroperitoneal ly mphadenopathy. There is a gastrostomy tube within the gastric antrum. Small bowel loops appear normal. Appendix has been resected. Minimal diverticulosis in the distal descending and proximal sigmoid colon. No diverticulitis. There is no ascites or free air. There is diastases recti. Unremarkable decompressed bladder. Normal uterus. No pelvic free fluid. Normal lumbar lordosis. There is inferior lumbosacral facet arthropathy. Bony pelvis appears intact. There are significant dystrophic calcifications adjacent to the left ischial tuberosity and posterior column of the left acetabulum suggestive of remote trauma. IMPRESSION: 1. Duplex right and left renal collecting system with nonobstructing bilateral nephrolithiasis. The largest stone in the right kidney is 1 cm. The largest in the left kidney is 8 mm. 2. Mild descending and sigmoid colon diverticulosis without diverticulitis. 3. Bilateral lower lobe and right middle lobe centrilobular infiltrates with bilateral lower lobe atelectasis. EXAM DESCRIPTION: RAD - Chest Single View - 10/25/2020 3:00 pm CLINICAL HISTORY: wheezes, chest tightness Chest pain. COMPARISON: Chest Single View dated 10/25/2020; Chest Single View dated 08/05/2020; Chest Single View dated 08/03/2020 FINDINGS: Portable technique limits examination quality. Moderate bilateral interstitial lung opacities are present, greater on the right. This may represent infection or pulmonary edema. The heart is mildly enlarged in size. No displaced fractures. IMPRESSION: Moderate bilateral interstitial lung opacities, greater on the right. Infection or pulmonary edema are possibilities. Conclusions/Impression: A/ TONY due to hypovolemia. Hypernatremia/ Dehydration Hypokalemia Hypomagnesemia CKD III? DM II with CKD Moderate malnutrition Acute E.coli cystitis P/ Continue current POC and Medications Continue D5W with potassium. Give another dose of IV potassium. Continue abx for aspiration pna & cystitis. Titrate insulin as needed. No NSAIDs. AM labs. Daily weight.
[2020-10-27] MEDS: JUVEN PACKET FT SCH (21:53)
[2020-10-28] MEDS: D5W 1,000 ML with POTASSIUM CL 20 MEQ IV SCH ×6 (01:12→12:59)
[2020-10-28] MEDS: PIPER/TAZO/NS 3.375gm 3.375 GM/100 ML BAG IVPB SCH ×3 (01:12→16:29)
[2020-10-28 06:21] LABS: Absolute Lymphocytes (CBC) 3.1 K/uL (0.7-4.9); Basophils % 0.3 % (0-1.3); Hematocrit 39.2 % (36.0-45.0); Lymphocytes % 39.9 % (15.3-44.8); MPV 12.1 fL (7.6-11.3); RBC Red Blood Cell Count 4.22 M/uL (3.86-4.86)
[2020-10-28 06:43] LABS: Phosphorus 2.4 mg/dL (2.5-4.9); Prealbumin 7.8 mg/dL (20-40)
[2020-10-28 07:06] LABS: Albumin 1.8 g/dL (3.4-5.0); Bilirubin Total 0.6 mg/dL (0.2-1.0); Potassium 3.8 mmol/L (3.5-5.1); Protein, Total 6.8 g/dL (6.4-8.2)
[2020-10-28] MEDS: INSULIN -REGULAR HUMAN 50 UNIT/0.5 ML ML SQ SCH ×4 (07:30→21:00)
[2020-10-28] MEDS: FAMOTIDINE 20 MG/2 ML VIAL IV SCH (08:57)
[2020-10-28] MEDS: GLUCERNA 1.5 CAL 1,000 ML BOT FT SCH ×4 (08:57→21:54)
[2020-10-28] MEDS: JUVEN PACKET FT SCH ×2 (08:57→21:55)
--- NOTE | 2020-10-28 09:49 | P.PN ---
Subjective Date of Service: 10/28/20 Primary Care Provider: Brayan Chief Complaint: pneumonia Patient has ecoli in the urine. creatine has improved Review of Systems 10-point ROS is otherwise unremarkable Physical Examination - Vital Signs Temperature: 98.6 F Blood Pressure: 116/55 Pulse: 102 Respirations: 20 Pulse Ox (%): 98 - Physical Exam General: Alert, In no apparent distress HEENT: Atraumatic, PERRLA, EOMI Neck: Supple, JVD not distended Respiratory: Clear to auscultation bilaterally, Normal air movement Cardiovascular: Regular rate/rhythm, Normal S1 S2 Gastrointestinal: Normal bowel sounds, No tenderness Musculoskeletal: No tenderness Integumentary: No rashes Neurological: Normal speech, Normal tone, Normal affect Lymphatics: No axilla or inguinal lymphadenopathy - Studies Microbiology Data (last 24 hrs): 10/25/20 00:25 Catheterized Urine [place] Count - Final >100,000 CFU/ML. 10/25/20 00:25 Catheterized Urine - Final Escherichia Coli Esbl Assessment & Plan - Problems (Diagnosis) (1) Aspiration pneumonia Current Visit: Yes Status: Acute Plan: continue fluids breathing treatments and zosyn. Blood cultures negative. The patient can be discharged on clindamycin. She is still having fevers. Will hold off pt and peg feedins. Qualifiers: Aspiration pneumonia type: unspecified Laterality: bilateral Lung location: lower lobe of lung Qualified Code(s): J69.0 - Pneumonitis due to inhalation of food and vomit (2) Renal failure Current Visit: Yes Status: Resolved Plan: 10/[address] Hamlin. Will continue to follow her sodium and creatine 10/28 Patient is doing much better will continue to monitor the labs Qualifiers: Renal failure chronicity: acute (3) DM2 (diabetes mellitus, type 2) Current Visit: No Status: Acute Plan: will keep her on a sliding scale and follow accuchecks Qualifiers: Diabetes mellitus superintendent container terminal insulin use: with residential use Diabetes mellitus complication status: with circulatory complication (4) HTN (hypertension) Current Visit: No Status: Acute Plan: will hold off medications till she is more stable Qualifiers: (5) PEG (percutaneous endoscopic gastrostomy) status Current Visit: No Status: Acute Plan: will hold peg feedings. she has aspiration (6) UTI (urinary tract infection) due to Enterococcus Current Visit: Yes Status: Acute Plan: is covered by zosyn. we can discharge on augmentin or neurontin. Discharge Plan: Home Plan to discharge in: 48 Hours Physician Review: Patient Assessed, Agree with Above Assessment and Plan Critical Care: No Time Spent Managing Pts Care (In Minutes): 20
[2020-10-28] MEDS: ENOXAPARIN 30 MG/0.3 ML SQ SCH (16:29)
--- NOTE | 2020-10-28 20:14 | P.PN ---
Date of Service: 10/28/20 Vital Signs Temp Pulse Resp BP Pulse Ox 97.6 F 90 20 114/71 100 10/28/20 16:00 10/28/20 16:00 10/28/20 16:00 10/28/20 16:00 10/28/20 16:00 Medications Acetaminophen (Acetaminophen 500 Mg Tab) 650 mg FT Q6H PRN PRN Reason: TEMP > 100' F Stop: 11/24/20 04:45 Last Admin: 10/27/20 07:53 Dose: 650 mg Documented by: Albuterol Sulfate (Albuterol 2.5 Mg/3 Ml Neb Adrianna) 2.5 mg NEB [id number] PRN PRN Reason: WHEEZING Stop: 11/24/20 04:45 Dextrose (D50w 25 Gm/50 Ml Syringe) 12.5 gm IV PRN PRN; Protocol PRN Reason: HYPOGLYCEMIA Stop: 11/24/20 18:22 Enoxaparin Sodium (Enoxaparin 30 Mg/0.3 Ml) 30 mg SQ DAILY 5 PM [facility] Stop: 11/24/20 21:01 Last Admin: 10/28/20 16:29 Dose: 30 mg Documented by: Enteral Nutritional Formula (Glucerna 1.5 Fernando 1,000 Ml Bot) 237 ml FT QID FRANCES Stop: 11/26/20 17:01 Last Admin: 10/28/20 16:30 Dose: 237 ml Documented by: Famotidine (Famotidine 20 Mg/2 Ml Vial) 20 mg IV DAILY FRANCES; Protocol Stop: 11/27/20 09:01 Last Admin: 10/28/20 08:57 Dose: 20 mg Documented by: Glucagon (Glucagon 1 Mg/Vial) 1 mg IM 1X PRN; Protocol PRN Reason: HYPOGLYCEMIA Stop: 11/24/20 18:22 Piperacillin Sod/Tazobactam Sod (Zosyn 3.375 Gm/100 Ml Ns Ivpb) 3.375 gm in 100 mls @ 100 mls/hr IVPB Q8HR FRANCES; Protocol Stop: 11/24/20 09:01 Last Admin: 10/28/20 16:29 Dose: 100 mls Documented by: Potassium Chloride 20 meq/ (Dextrose/Water) 1,010 mls @ 100 mls/hr IV .Q10H6M [facility] Stop: 11/25/20 09:01 Last Admin: 10/28/20 12:59 Dose: 1,010 mls Documented by: Insulin Human Regular (Insulin -Regular Human 50 Unit/0.5 Ml Ml) 0 unit SQ ACHS [facility]; Protocol Stop: 11/24/20 21:01 Last Admin: 10/28/20 16:30 Dose: Not Given Documented by: Ipratropium [place] (Ipratropium Brom 0.5mg/2.5ml) 0.5 mg NEB [id number] PRN PRN Reason: WHEEZING Stop: 11/24/20 04:45 L-Arginine/L-Glutamine/HMB (Elijah Packet) 1 pkt FT BID FRANCES Stop: 11/26/20 21:01 Last Admin: 10/28/20 08:57 Dose: 1 pkt Documented by: Morphine Sulfate (Morphine 2 Mg/Ml Syr) 2 mg IV Q4H PRN PRN Reason: Pain scale 8-10 (Severe) Stop: 11/26/20 13:59 Ondansetron HCl (Ondansetron 4 Mg/2 Ml Vial) 4 mg IV Q6H PRN PRN Reason: NAUSEA / VOMITING Stop: 11/24/20 04:45 Sodium Chloride (Flush Normal Saline 10 Ml) 10 ml IV BID [facility] Stop: 11/24/20 09:01 Last Admin: 10/28/20 08:58 Dose: Not Given Documented by: Microbiology Results 10/25/20 00:25 Catheterized Urine [place] Count - Final >100,000 CFU/ML. 10/25/20 00:25 Catheterized Urine - Final Escherichia Coli Esbl 10/25/20 00:00 Blood - Blood Aerobic Blood Culture - Preliminary No growth in 24 hours. 10/25/20 00:00 Blood - Blood Anaerobic Blood Culture - Preliminary No growth in 24 hours. 10/25/20 00:10 Blood - Blood Aerobic Blood Culture - Preliminary No growth in 24 hours. 10/25/20 00:10 Blood - Blood Anaerobic Blood Culture - Preliminary No growth in 24 hours. Assessment/ Plan: Nephrology CPS stable without CP or SOB. No acute events overnight. Limited IH/ ROS due to lack of speech. Vitals, medications, blood work and imaging reviewed in the chart. NAD. Obese. DMM. Neck supple. CTA. RRR. Soft Abd. No C/C. LE Edema trace. No rash. Awake. No Speech. Blood work reviewed in the chart. Imagings Data: EXAM DESCRIPTION: CT - Stone Protocol - 10/25/2020 6:54 am CLINICAL HISTORY: FLANK PAIN COMPARISON: CT abdomen and pelvis with contrast 07/13/2020 TECHNIQUE: Axial unenhanced CT imaging of the abdomen and pelvis performed. Reformatted coronal and sagittal images reviewed. A dose reduction technique was utilized with automated exposure control according to patient size. FINDINGS: There is minimal right and left lower lobe atelectasis. There are centrilobular nodular opacities within the right middle lobe in the lateral segment as well as both lower lobes. No pleural fluid. Heart is normal in size. Unremarkable liver. Normal gallbladder, spleen, pancreas, adrenal glands. There is a duplex renal collecting system bilaterally. There were nonobstructing stones in the right renal pelvis up to 1.0 cm. There are nonobstructing calculi within the left renal pelvis. The largest is in the upper moiety up to 8 mm. No hydronephrosis. The aorta and inferior vena cava are normal in caliber. There is mild aortic atherosclerosis extending into the iliac vessels. No retroperitoneal lymphadenopathy. There is a gastrostomy tube within the gastric antrum. Small bowel loops appear normal. Appendix has been resected. Minimal diverticulosis in the distal descending and proximal sigmoid colon. No diverticulitis. There is no ascites or free air. There is diastases recti. Unremarkable decompressed bladder. Normal uterus. No pelvic free fluid. Normal lumbar lordosis. There is inferior lumbosacral facet arthropathy. Bony pelvis appears intact. There are significant dystrophic calcifications adjacent to the left ischial tuberosity and posterior column of the left acetabulum suggestive of remote trauma. IMPRESSION: 1. Duplex right and left renal collecting system with nonobstructing bilateral nephrolithiasis. The largest stone in the right kidney is 1 cm. The largest in the left kidney is 8 mm. 2. Mild descending and sigmoid colon diverticulosis without diverticulitis. 3. Bilateral lower lobe and right middle lobe centrilobular infiltrates with bilateral lower lobe atelectasis. EXAM DESCRIPTION: RAD - Chest Single View - 10/25/2020 3:00 pm CLINICAL HISTORY: wheezes, chest tightness Chest pain. COMPARISON: Chest Single View dated 10/25/2020; Chest Single View dated 08/05/2020; Chest Single View dated 08/03/2020 FINDINGS: Portable technique limits examination quality. Moderate bilateral interstitial lung opacities are present, greater on the right. This may represent infection or pulmonary edema. The heart is mildly enlarged in size. No displaced fractures. IMPRESSION: Moderate bilateral interstitial lung opacities, greater on the right. Infection or pulmonary edema are possibilities. Conclusions/Impression: A/ TONY due to hypovolemia. Hypernatremia/ Dehydration Hypokalemia Hypomagnesemia CKD III? DM II with CKD Moderate malnutrition Acute E.coli cystitis P/ Continue current POC and Medications Continue D5W with potassium. Replete potassium prn. Continue abx for aspiration pna & cystitis. Titrate insulin as needed. Encourage nutrition. No NSAIDs. AM labs. Daily weight.
[2020-10-29] MEDS: D5W 1,000 ML with POTASSIUM CL 20 MEQ IV SCH ×6 (00:06→20:34)
[2020-10-29] MEDS: PIPER/TAZO/NS 3.375gm 3.375 GM/100 ML BAG IVPB SCH ×3 (00:30→16:33)
[2020-10-29 06:34] LABS: Absolute Lymphocytes (CBC) 3.1 K/uL (0.7-4.9); Basophils % 0.4 % (0-1.3); Hematocrit 38.4 % (36.0-45.0); Lymphocytes % 43.4 % (15.3-44.8); MPV 11.7 fL (7.6-11.3); RBC Red Blood Cell Count 4.19 M/uL (3.86-4.86)
[2020-10-29 07:01] LABS: Potassium 3.9 mmol/L (3.5-5.1)
[2020-10-29] MEDS: INSULIN -REGULAR HUMAN 50 UNIT/0.5 ML ML SQ SCH ×4 (07:30→20:34)
[2020-10-29] MEDS: FAMOTIDINE 20 MG/2 ML VIAL IV SCH (08:57)
[2020-10-29] MEDS: GLUCERNA 1.5 CAL 1,000 ML BOT FT SCH ×4 (08:58→20:32)
[2020-10-29] MEDS: JUVEN PACKET FT SCH ×2 (09:00→20:32)
--- NOTE | 2020-10-29 11:48 | P.PN ---
Subjective Date of Service: 10/29/20 Primary Care Provider: Brayan Chief Complaint: pneumonia Patient is alert today. Seems back to her baseline Review of Systems 10-point ROS is otherwise unremarkable Physical Examination - Vital Signs Temperature: 97.5 F Blood Pressure: 126/76 Pulse: 92 Respirations: 20 Pulse Ox (%): 100 - Physical Exam General: Alert, In no apparent distress HEENT: Atraumatic, PERRLA, EOMI Neck: Supple, JVD not distended Respiratory: Clear to auscultation bilaterally, Normal air movement Cardiovascular: Regular rate/rhythm, Normal S1 S2 Gastrointestinal: Normal bowel sounds, No tenderness Musculoskeletal: No tenderness Integumentary: No rashes Neurological: Normal speech, Normal tone, Normal affect Lymphatics: No axilla or inguinal lymphadenopathy Assessment & Plan - Problems (Diagnosis) (1) Aspiration pneumonia Current Visit: Yes Status: Acute Plan: continue fluids breathing treatments and zosyn. Blood cultures negative. The patient can be discharged on clindamycin. She is still having fevers. Will hold off pt and peg feedins. Qualifiers: Aspiration pneumonia type: unspecified Laterality: bilateral Lung location: lower lobe of lung Qualified Code(s): J69.0 - Pneumonitis due to inhalation of food and vomit (2) Renal failure Current Visit: Yes Status: Resolved Plan: 10/[address] Hamlin. Will continue to follow her sodium and creatine 10/28 Patient is doing much better will continue to monitor the labs Qualifiers: Renal failure chronicity: acute (3) DM2 (diabetes mellitus, type 2) Current Visit: No Status: Acute Plan: will keep her on a sliding scale and follow accuchecks Qualifiers: Diabetes mellitus continuous churn buttermaker insulin use: with usp use Diabetes jazzy litus complication status: with circulatory complication (4) HTN (hypertension) Current Visit: No Status: Acute Plan: will hold off medications till she is more stable Qualifiers: (5) PEG (percutaneous endoscopic gastrostomy) status Current Visit: No Status: Acute Plan: will hold peg feedings. she has aspiration (6) UTI (urinary tract infection) due to Enterococcus Current Visit: Yes Status: Acute Plan: is covered by zosyn. we can discharge on augmentin or neurontin. Discharge Plan: [facility] Care Plan to discharge in: 24 Hours - Code Status/Comfort Care Code Status Assessed: No Physician Review: Patient Assessed, Agree with Above Assessment and Plan Critical Care: No Time Spent Managing Pts Care (In Minutes): 20
[2020-10-29 12:34] VITALS: O2SAT 98
[2020-10-29] MEDS: ENOXAPARIN 30 MG/0.3 ML SQ SCH (16:32)
--- NOTE | 2020-10-29 22:09 | P.PN ---
Date of Service: 10/29/20 Vital Signs Temp Pulse Resp BP Pulse Ox 98.3 F 100 H 19 110/80 100 10/29/20 19:45 10/29/20 19:45 10/29/20 19:45 10/29/20 19:45 10/29/20 19:45 Medications Acetaminophen (Acetaminophen 500 Mg Tab) 650 mg FT Q6H PRN PRN Reason: TEMP > 100' F Stop: 11/24/20 04:45 Last Admin: 10/27/20 07:53 Dose: 650 mg Documented by: Albuterol Sulfate (Albuterol 2.5 Mg/3 Ml Neb Adrianna) 2.5 mg NEB [id number] PRN PRN Reason: WHEEZING Stop: 11/24/20 04:45 Dextrose (D50w 25 Gm/50 Ml Syringe) 12.5 gm IV PRN PRN; Protocol PRN Reason: HYPOGLYCEMIA Stop: 11/24/20 18:22 Enoxaparin Sodium (Enoxaparin 30 Mg/0.3 Ml) 30 mg SQ DAILY 5 PM [facility] Stop: 11/24/20 21:01 Last Admin: 10/29/20 16:32 Dose: 30 mg Documented by: Enteral Nutritional Formula (Glucerna 1.5 Fernando 1,000 Ml Bot) 237 ml FT QID FRANCES Stop: 11/26/20 17:01 Last Admin: 10/29/20 20:32 Dose: 237 ml Documented by: Famotidine (Famotidine 20 Mg/2 Ml Vial) 20 mg IV DAILY FRANCES; Protocol Stop: 11/27/20 09:01 Last Admin: 10/29/20 08:57 Dose: 20 mg Documented by: Glucagon (Glucagon 1 Mg/Vial) 1 mg IM 1X PRN; Protocol PRN Reason: HYPOGLYCEMIA Stop: 11/24/20 18:22 Piperacillin Sod/Tazobactam Sod (Zosyn 3.375 Gm/100 Ml Ns Ivpb) 3.375 gm in 100 mls @ 100 mls/hr IVPB Q8HR FRANCES; Protocol Stop: 11/24/20 09:01 Last Admin: 10/29/20 16:33 Dose: 100 mls Documented by: Potassium Chloride 20 meq/ (Dextrose/Water) 1,010 mls @ 100 mls/hr IV .Q10H6M [facility] Stop: 11/25/20 09:01 Last Admin: 10/29/20 20:34 Dose: 1,010 mls Documented by: Insulin Human Regular (Insulin -Regular Human 50 Unit/0.5 Ml Ml) 0 unit SQ ACHS [facility]; Protocol Stop: 11/24/20 21:01 Last Admin: 10/29/20 20:34 Dose: Not Given Documented by: Ipratropium [place] (Ipratropium Brom 0.5mg/2.5ml) 0.5 mg NEB [id number] PRN PRN Reason: WHEEZING Stop: 11/24/20 04:45 L-Arginine/L-Glutamine/HMB (Elijah Packet) 1 pkt FT BID FRANCES Stop: 11/26/20 21:01 Last Admin: 10/29/20 20:32 Dose: 1 pkt Documented by: Morphine Sulfate (Morphine 2 Mg/Ml Syr) 2 mg IV Q4H PRN PRN Reason: Pain scale 8-10 (Severe) Stop: 11/26/20 13:59 Ondansetron HCl (Ondansetron 4 Mg/2 Ml Vial) 4 mg IV Q6H PRN PRN Reason: NAUSEA / VOMITING Stop: 11/24/20 04:45 Sodium Chloride (Flush Normal Saline 10 Ml) 10 ml IV BID [facility] Stop: 11/24/20 09:01 Last Admin: 10/29/20 20:32 Dose: 10 ml Documented by: Microbiology Results 10/25/20 00:25 Catheterized Urine [place] Count - Final >100,000 CFU/ML. 10/25/20 00:25 Catheterized Urine - Final Escherichia Coli Esbl 10/25/20 00:00 Blood - Blood Aerobic Blood Culture - Preliminary No growth in 24 hours. 10/25/20 00:00 Blood - Blood Anaerobic Blood Culture - Preliminary No growth in 24 hours. 10/25/20 00:10 Blood - Blood Aerobic Blood Culture - Preliminary No growth in 24 hours. 10/25/20 00:10 Blood - Blood Anaerobic Blood Culture - Preliminary No growth in 24 hours. Assessment/ Plan: Nephrology CPS stable without CP or SOB. No acute events overnight. Limited IH/ ROS due to lack of speech. Vitals, medications, blood work and imaging reviewed in the chart. NAD. Obese. DMM. Neck supple. CTA. RRR. Soft Abd. No C/C. LE Edema trace. No rash. Awake. No Speech. Blood work reviewed in the chart. Imagings Data: EXAM DESCRIPTION: CT - Stone Protocol - 10/25/2020 6:54 am CLINICAL HISTORY: FLANK PAIN COMPARISON: CT abdomen and pelvis with contrast 07/13/2020 TECHNIQUE: Axial unenhanced CT imaging of the abdomen and pelvis performed. Reformatted coronal and sagittal images reviewed. A dose reduction technique was utilized with automated exposure control according to patient size. FINDINGS: There is minimal right and left lower lobe atelectasis. There are centrilobular nodular opacities within the right middle lobe in the lateral segment as well as both lower lobes. No pleural fluid. Heart is normal in size. Unremarkable liver. Normal gallbladder, spleen, pancreas, adrenal glands. There is a duplex renal collecting system bilaterally. There were nonobstructing stones in the right renal pelvis up to 1.0 cm. There are nonobstructing calculi within the left renal pelvis. The largest is in the upper moiety up to 8 mm. No hydronephrosis. The aorta and inferior vena cava are normal in caliber. There is mild aortic atherosclerosis extending into the iliac vessels. No retroperitoneal lymphadenopathy. There is a gastrostomy tube within the gastric antrum. Small bowel loops appear normal. Appendix has been resected. Minimal diverticulosis in the distal descending and proximal sigmoid colon. No diverticulitis. There is no ascites or free air. There is diastases recti. Unremarkable decompressed bladder. Normal uterus. No pelvic free fluid. Normal lumbar lordosis. There is inferior lumbosacral facet arthropathy. Bony pelvis appears intact. There are significant dystrophic calcifications adjacent to the left ischial tuberosity and posterior column of the left acetabulum suggestive of remote trauma. IMPRESSION: 1. Duplex right and left renal collecting system with nonobstructing bilateral nephrolithiasis. The largest stone in the right kidney is 1 cm. The largest in the left kidney is 8 mm. 2. Mild descending and sigmoid colon diverticulosis without diverticulitis. 3. Bilateral lower lobe and right middle lobe centrilobular infiltrates with bilateral lower lobe atelectasis. EXAM DESCRIPTION: RAD - Chest Single View - 10/25/2020 3:00 pm CLINICAL HISTORY: wheezes, chest tightness Chest pain. COMPARISON: Chest Single View dated 10/25/2020; Chest Single View dated 08/05/2020; Chest Single View dated 08/03/2020 FINDINGS: Portable technique limits examination quality. Moderate bilateral interstitial lung opacities are present, greater on the right. This may represent infection or pulmonary edema. The heart is mildly enlarged in size. No displaced fractures. IMPRESSION: Moderate bilateral interstitial lung opacities, greater on the right. Infection or pulmonary edema are possibilities. Conclusions/Impression: A/ TONY due to hypovolemia. Hypernatremia/ Dehydration Hypokalemia Hypomagnesemia CKD III? DM II with CKD Moderate malnutrition Acute E.coli cystitis P/ Continue current POC and Medications Continue D5W with potassium. Replete potassium prn. Continue abx for aspiration pna & cystitis. Titrate insulin as needed. Encourage nutrition. No NSAIDs. AM labs. Daily weight.
[2020-10-30] MEDS: PIPER/TAZO/NS 3.375gm 3.375 GM/100 ML BAG IVPB SCH ×2 (00:10→08:58)
[2020-10-30] MEDS: D5W 1,000 ML with POTASSIUM CL 20 MEQ IV SCH ×2 (02:04)
[2020-10-30 06:42] LABS: Absolute Lymphocytes (CBC) 3.6 K/uL (0.7-4.9); Basophils % 0.3 % (0-1.3); Hematocrit 39.5 % (36.0-45.0); Lymphocytes % 49.2 % (15.3-44.8); RBC Red Blood Cell Count 4.35 M/uL (3.86-4.86)
[2020-10-30 06:47] LABS: Potassium 4.2 mmol/L (3.5-5.1)
[2020-10-30] MEDS: INSULIN -REGULAR HUMAN 50 UNIT/0.5 ML ML SQ SCH ×2 (07:21→11:30)
[2020-10-30] MEDS: FAMOTIDINE 20 MG/2 ML VIAL IV SCH (08:59)
[2020-10-30] MEDS: GLUCERNA 1.5 CAL 1,000 ML BOT FT SCH ×2 (09:01→12:07)
[2020-10-30] MEDS: JUVEN PACKET FT SCH (09:01)
--- NOTE | 2020-10-30 09:45 | P.DS ---
Admission Date: 10/25/20 Discharge Date: 10/30/20 Primary Care Provider: Brayan Disposition: ROUTINE DISCHARGE Discharge Condition: GOOD Reason for Admission: pneumonia - Problems (1) Aspiration pneumonia Current Visit: Yes Status: Acute Qualifiers: Aspiration pneumonia type: unspecified Laterality: bilateral Lung location: lower lobe of lung Qualified Code(s): J69.0 - Pneumonitis due to inhalation of food and vomit (2) Renal failure Current Visit: Yes Status: Resolved Qualifiers: Renal failure chronicity: acute (3) DM2 (diabetes mellitus, type 2) Current Visit: No Status: Acute Qualifiers: Diabetes mellitus m[facility] insulin 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 She has hemiplegia and is bed bound with a peg tube. She had been pulling out her tracheostomy tube. Was able to speak enough to state she does not wish it to be replaced and does not want to be intubated. Asked for DNR status. The patient was on Peg feeding. However she wished to eat orally she failed all swallow evaluations. However considering quality of life. We decided on comfort feeds. The patients family transfered her care at that time. She seems to have aspirated and was transported to the hospital. She is not able to give a history She has a renal failure and bilateral infiltrates. With labored breathing. Hospital Course: Patient presented with aspiration and bilateral pneumonia. She also had a uti with Ecoli. She was treated with zosyn and cephalaporin. The patient had a acute renal failure. The patent was seen by Dr. Christianson and Yakelin. The patient improved with fluids. She has steadily improved. Will discharge her back to [facility]. Will need to discuss hospice with her family. The patient wants comfort feeding. However she is a high risk Was not ever to do anything with speach and failed all her swallow studies. The paitent can continue with comfort feeding. However from a legal standpoint she should be in hospice. As any oral feeds is very dangerous. Vital Signs/Physical Exam: Temp Pulse Resp BP Pulse Ox 97.3 F 89 20 117/68 100 10/30/20 04:00 10/30/20 04:00 10/30/20 04:00 10/30/20 04:00 10/30/20 04:00 General: Alert, In no apparent distress HEENT: Atraumatic, PERRLA, EOMI Neck: Supple, JVD not distended Respiratory: Clear to auscultation bilaterally, Normal air movement Cardiovascular: Regular rate/rhythm, Normal S1 S2 Gastrointestinal: Normal bowel sounds, No tenderness Musculoskeletal: No tenderness Integumentary: No rashes Neurological: Normal speech, Normal tone, Normal affect Lymphatics: No axilla or inguinal lymphadenopathy Laboratory Data at Discharge: WBC 7.3 K/uL (4.3-10.9) 10/30/20 05:55 Hgb 12.8 g/dL (12.0-15.0) 10/30/20 05:55 Hct 39.5 % (36.0-45.0) 10/30/20 05:55 Plt Count 193 K/uL (152-406) 10/30/20 05:55 PT 14.0 SECONDS (9.5-12.5) H 10/25/20 00:10 INR 1.19 10/25/20 00:10 Sodium 144 mmol/L (136-145) 10/30/20 05:55 Potassium 4.2 mmol/L (3.5-5.1) 10/30/20 05:55 BUN 18 mg/dL (7-18) 10/30/20 05:55 Creatinine 0.92 mg/dL (0.55-1.3) 10/30/20 05:55 Glucose 116 mg/dL (74-106) H 10/30/20 05:55 Phosphorus 2.4 mg/dL (2.5-4.9) L 10/28/20 05:56 Magnesium 1.9 mg/dL (1.8-2.4) 10/27/20 06:13 Total Bilirubin 0.6 mg/dL (0.2-1.0) 10/28/20 05:56 AST 129 U/L (15-37) H 10/28/20 05:56 ALT 100 U/L (12-78) H 10/28/20 05:56 Alkaline Phosphatase 173 U/L (45-117) H 10/28/20 05:56 Troponin I 0.02 ng/mL (0.0-0.045) 10/26/20 05:01 Lipase 94 U/L (73-393) 10/25/20 00:10 Home Medications: Acetaminophen 160 mg FT TIDP PRN 08/06/20 Albuterol Sulfate [Albuterol Sulfate 0.083% Neb Soln] 2.5 mg IH Q8H 08/06/20 Amlodipine [Norvasc] 5 mg FT DAILY 08/06/20 Apixaban [Eliquis] 2.5 mg FT DAILY 08/06/20 Ascorbic Acid [Vitamin C] 500 mg PO DAILY 08/06/20 Aspirin 81 mg FT DAILY 08/06/20 Atorvastatin Calcium [Lipitor] 80 mg FT BEDTIME 08/06/20 Buspirone HCl [Buspar] 5 mg FT TID 08/06/20 Chlorhexidine Gluconate [Peridex] 15 ml MM Q4H 08/06/20 Insulin Lispro [Humalog] 0 unit SQ ACHS 08/06/20 Ipratropium [place] 0.2 mg IH Q8H 08/06/20 L.acidoph/L.bulg/B.bif/S.therm [Bacid Caplet] 1 tab FT DAILY 08/06/20 Lactulose 10 gm PO TIDP PRN 08/06/20 Magnesium Oxide [Mag 0X Tab] 400 mg FT BID 08/06/20 Metoprolol Tartrate [Lopressor] 25 mg FT Q12H 08/06/20 Ondansetron [Zofran] 4 mg FT Q6H PRN 08/06/20 Pantoprazole [Protonix Tab] 40 mg FT DAILY 08/06/20 Simethicone 80 mg PO BID 08/06/20 Bismuth Subsalicylate [Bismatrol] 262 mg FT TID 10/25/20 Melatonin/Pyridoxine [Melatonin 5 mg Tablet] 5 mg FT BEDTIME 10/25/20 clonazePAM [Klonopin*] 0.5 mg FT BID 10/25/20 clindamycin HCL [Cleocin HCl] 300 mg FT TID 5 Days #15 capsule 10/30/20 New Medications: clindamycin HCL [Cleocin HCl] 300 mg FT TID 5 Days #15 capsule Diet: Feedingtub Activity: Fall precautions Followup: NONE,NONE [Primary Care Provider] - Time spent managing pt's care (in minutes): 30
[2020-10-30 14:23] VITALS: BP 92/51; TEMP 97.5
--- NOTE | 2020-10-30 14:41 | P.PN ---
Date of Service: 10/30/20 Called by social service worker that the daughter wished to speak to me regarding hospice. A verbal hospice order had been put in under my name. I had spoken with the charge nurse about possible considering hospice for the patient from the residential. She is a high aspiration risk yet still wishes to eat orally. Given this hospice is a good consideration. However was not planning to start a hospice consult at this hospitalization. Called the daughter Maia [phone] She agreed with my reasoning but was surprised about the timing. Have apologized. Will follow up from the patient at [facility]
--- NOTE | 2020-10-30 21:04 | P.PN ---
Date of Service: 10/30/20 Vital Signs Temp Pulse Resp BP Pulse Ox 97.5 F 95 H 16 92/51 L 98 10/30/20 12:00 10/30/20 12:00 10/30/20 12:00 10/30/20 12:00 10/30/20 12:00 Microbiology Results 10/25/20 00:00 Blood - Blood Aerobic Blood Culture - Final No growth in 5 days. 10/25/20 00:00 Blood - Blood Anaerobic Blood Culture - Final No growth in 5 days. 10/25/20 00:10 Blood - Blood Aerobic Blood Culture - Final No growth in 5 days. 10/25/20 00:10 Blood - Blood Anaerobic Blood Culture - Final No growth in 5 days. 10/25/20 00:25 Catheterized Urine [place] Count - Final >100,000 CFU/ML. 10/25/20 00:25 Catheterized Urine - Final Escherichia Coli Esbl Assessment/ Plan: Nephrology CPS stable without CP or SOB. No acute events overnight. Limited IH/ ROS due to lack of speech. Vitals, medications, blood work and imaging reviewed in the chart. NAD. Obese. DMM. Neck supple. CTA. RRR. Soft Abd. No C/C. LE Edema trace. No rash. Awake. No Speech. Blood work reviewed in the chart. Imagings Data: EXAM DESCRIPTION: CT - Stone Protocol - 10/25/2020 6:54 am CLINICAL HISTORY: FLANK PAIN COMPARISON: CT abdomen and pelvis with contrast 07/13/2020 TECHNIQUE: Axial unenhanced CT imaging of the abdomen and pelvis performed. Reformatted coronal and sagittal images reviewed. A dose reduction technique was utilized with automated exposure control according to patient size. FINDINGS: There is minimal right and left lower lobe atelectasis. There are centrilobular nodular opacities within the right middle lobe in the lateral segment as well as both lower lobes. No pleural fluid. Heart is normal in s ize. Unremarkable liver. Normal gallbladder, spleen, pancreas, adrenal glands. There is a duplex renal collecting system bilaterally. There were nonobstructing stones in the right renal pelvis up to 1.0 cm. There are nonobstructing calculi within the left renal pelvis. The largest is in the upper moiety up to 8 mm. No hydronephrosis. The aorta and inferior vena cava are normal in caliber. There is mild aortic atherosclerosis extending into the iliac vessels. No retroperitoneal lymphadenopathy. There is a gastrostomy tube within the gastric antrum. Small bowel loops appear normal. Appendix has been resected. Minimal diverticulosis in the distal descending and proximal sigmoid colon. No diverticulitis. There is no ascites or free air. There is diastases recti. Unremarkable decompressed bladder. Normal uterus. No pelvic free fluid. Normal lumbar lordosis. There is inferior lumbosacral facet arthropathy. Bony pelvis appears intact. There are significant dystrophic calcifications adjacent to the left ischial tuberosity and posterior column of the left acetabulum suggestive of remote trauma. IMPRESSION: 1. Duplex right and left renal collecting system with nonobstructing bilateral nephrolithiasis. The largest stone in the right kidney is 1 cm. The largest in the left kidney is 8 mm. 2. Mild descending and sigmoid colon diverticulosis without diverticulitis. 3. Bilateral lower lobe and right middle lobe centrilobular infiltrates with bilateral lower lobe atelectasis. EXAM DESCRIPTION: RAD - Chest Single View - 10/25/2020 3:00 pm CLINICAL HISTORY: wheezes, chest tightness Chest pain. COMPARISON: Chest Single View dated 10/25/2020; Chest Single View dated 08/05/2020; Chest Single View dated 08/03/2020 FINDINGS: Portable technique limits examination quality. Moderate bilateral interstitial lung opacities are present, greater on the right. This may represent infection or pulmonary edema. The heart is mildly enlarged in size. No displaced fractures. IMPRESSION: Moderate bilateral interstitial lung opacities, greater on the right. Infection or pulmonary edema are possibilities. Conclusions/Impression: A/ TONY due to hypovolemia. Hypernatremia/ Dehydration Hypokalemia Hypomagnesemia CKD III? DM II with CKD Moderate malnutrition Acute E.coli cystitis P/ Continue current POC and Medications Continue D5W with potassium. Replete potassium prn. Continue abx for aspiration pna & cystitis. Titrate insulin as needed. Encourage nutrition. No NSAIDs. AM labs prn. Daily weight.
== END 2020-10-30 13:14 | DRG 178 ==
LOC: ER 23:46 → ERHOLD 10-25 02:58 → 2ND 10-25 04:24
PROVIDERS: ADMIT Internal Medicine; ATTEND Internal Medicine
DX: J69.0 Pneumonitis due to inhalation of food and vomit (principal); N17.9 Acute kidney failure, unspecified; E87.0 Hyperosmolality and hypernatremia; E44.0 Moderate protein-calorie malnutrition; N30.00 Acute cystitis without hematuria; I69.359 Hemiplegia and hemiparesis following cerebral infarction affecting unspecified side; I12.9 Hypertensive chronic kidney disease with stage 1 through stage 4 chronic kidney disease, or unspecified chronic kidney disease; N18.30 Chronic kidney disease, stage 3 unspecified; E11.22 Type 2 diabetes mellitus with diabetic chronic kidney disease; E87.6 Hypokalemia; E86.1 Hypovolemia; E86.0 Dehydration; K21.9 Gastro-esophageal reflux disease without esophagitis; E83.42 Hypomagnesemia; B95.2 Enterococcus as the cause of diseases classified elsewhere; B96.20 Unspecified Escherichia coli [E. coli] as the cause of diseases classified elsewhere; E66.9 Obesity, unspecified; Z68.29 Body mass index [BMI] 29.0-29.9, adult; Z66 Do not resuscitate; Z74.01 Bed confinement status; Z93.1 Gastrostomy status; Z79.82 Long term (current) use of aspirin; Z79.01 Long term (current) use of anticoagulants; Z79.4 Long term (current) use of insulin; Z79.899 Other long term (current) drug therapy; Z96.653 Presence of artificial knee joint, bilateral; Z98.51 Tubal ligation status; Z88.8 Allergy status to other drugs, medicaments and biological substances; Z20.828 Contact with and (suspected) exposure to other viral communicable diseases
CPT/HCPCS: 36415; 51702; 70450; 71045; 74176; 76377; 80048; 80053; 80076; 81003; 81015; 82805; 82947; 83605; 83690; 83735; 83880; 84100; 84134; 84484; 85025; 85610; 87040; 87077; 87086; 87088; 87186; 93005; 94760; 96361; 96365; 96375; 99285; J1650; J2405; J2543; J3475; J3480; J7030; J7050; U0003